=== PATIENT | male | born 1965 | race Caucasian/White ===

== ENCOUNTER 2019-05-06 19:22 | Inpatient (IN) | payer MEDICAID, SELFPAY ==
[2019-05-06 19:23] VITALS: BP 159/107; PULSE 88; RESP 15; TEMP 36.4; O2SAT 99; BMI 35.1
--- NOTE | 2019-05-06 19:43 | EKG12_ITS ---
Test Reason : FLANK PAIN Blood Pressure : / mmHG Vent. Rate : 085 BPM Atrial Rate : 085 BPM P-R Int : 118 ms QRS Dur : 078 ms QT Int : 410 ms P-R-T Axes : 017 -18 070 degrees QTc Int : 487 ms Normal sinus rhythm Prolonged QT Abnormal ECG Confirmed by SHAYAN TREADWELL, ALEXIA ([id number]), video tape editor ANTONIO SHEPARD ([id number]) on 05/07/2019 11:33:39 AM Referred By: Rodrigo Rouse Confirmed By:ALEXIA DOWNEY MD
--- NOTE | 2019-05-06 19:44 | ED.VIS.GEN ---
History of Present Illness Chief Complaint: Flank Pain Detail of Chief Complaint: Renal failure Informant: Patient Narrative: Patient states that he received a phone call from Dr. Lim, nephrology, stating he needed to come to the emergency room to be admitted to the hospital and start dialysis for renal failure. Patient states his doctors been following his renal function recently. He states prior to this last known lab work was drawn approximately 10 years ago. Patient was seen by Dr. Lim 2 days ago for a first-time visit and had repeat labs drawn. He received a phone call tonight to come to the emergency room. Patient has no complaints and states he feels well. He states he does urinate approximately a gallon a day. - Past Medical History (1) Diabetes Status: Chronic (2) Chronic renal failure Status: Chronic (3) Hypertension Status: Chronic (4) Vision problem Status: Chronic (5) Crohn's disease Status: Chronic Past Medical History - Allergies and Home Meds Allergies/Adverse Reactions: Allergies No Known Allergies Allergy (Verified 05/06/19 19:28) Primary Care Physician: Chuy Lim MD [Primary Care Provider] - Doctors: Dr. King Prior records reviewed: Yes Surgical History: - - Right partial colectomy Review of Systems General: Denies: Chills, Fever Eyes: Reports: Visual changes - bilaterally - Chronic vision changes. Cardiovascular: Denies: Chest pain Respiratory: Denies: Dyspnea, Cough Gastrointestinal: Denies: Abdominal pain, Nausea, Vomiting, Diarrhea Genitourinary: Denies: Dysuria Musculoskeletal: Denies: Extremity Pain Skin: Denies: Rash Neurological: Denies: Headache Endocrine: Denies: Polyuria Hematologic: Denies: Easy bruising Allergy: Denies: Uticaria Physical Exam Vital Signs/Narrative: Vital Signs Temp Pulse Resp BP Pulse Ox 05/06/19 19:23 97.5 F L 88 15 159/107 H 99 Inital Vital Signs reviewed: Yes General: Well nourished, Well developed Head: Normocephalic ENT: Moist mucous membranes Neck: Supple Cardiovascular: Regular rate, Regular rhythm Respiratory: No distress, CTA bilaterally Abdomen: Soft, Nontender, Normal bowel sounds Back: Nontender Extremities: Nontender Skin: Normal color, No rash Neurological: Alert, Oriented x3 Psychological: Normal affect Diagnostic/Tx/Re-eval Laboratory Results 1205/06/19 05/06/19 19:44 19:44 20:05 WBC 9.5 RBC 4.80 Hgb 13.6 Hct 41.1 MCV 85.6 MCH 28.3 MCHC 33.1 RDW Std Deviation 42.7 RDW Coeff of Glen 13.8 Plt Count 244 MPV 10.5 Immature Gran % (Auto) 0.300 Neut % (Auto) 64.5 Lymph % (Auto) 20.1 [place] % (Auto) 6.9 Eos % (Auto) 7.5 H Baso % (Auto) 0.7 Absolute Neuts (auto) 6.1 Absolute Lymphs (auto) 1.91 Nucleated RBC % 0 Sodium 137 Potassium 4.7 Chloride 110 H Carbon Dioxide 19.0 L Anion Gap 8 BUN 58 H Creatinine 6.08 H Estim Creat Clear Calc 14.45 Est GFR (MDRD) Af Amer 12 L Est GFR (MDRD) Non-Af 10 L BUN/Creatinine Ratio 9.5 L Glucose 182 H Calcium 8.4 L Urine Color Yellow Urine Clarity Clear Urine pH 6.0 Ur Specific [place] 1.015 Urine Protein 500 H Urine Glucose (UA) 250 H Urine Ketones Negative Urine Occult Blood 25 H Urine Nitrite Negative Urine Bilirubin Negative Urine Urobilinogen Normal Ur Leukocyte Esterase Negative Urine RBC 0 SEEN Urine WBC 0-5 SEEN Ur Squamous Epith Cells 0-5 SEEN Urine Bacteria 1+ Urine Mucus 0 SEEN - EKG Initial EKG Interpretation: Sinus Rhythm - Sinus at 85. QTC is 47. - Medical Decision Making Patient is given IV fluids. He is placed on utility pipe layer and observe. I will speak with hospitalist regarding admission to be seen by nephrology to plan dialysis. ED Disposition - Plan for ED Patient: Disposition: Acute Care Hospital [facility] Diagnosis: Renal failure Referrals: Chuy Lim MD [Primary Care Provider] -
--- NOTE | 2019-05-06 19:57 | ED.RN ---
NO OLD EKGS IN MUSE
[2019-05-06 20:03] LABS: Absolute Lymphocyte Count 1.91 X10^3/uL (0.83-4.51); Absolute Neutrophil Count 6.1 X10^3/uL (2.0-7.7); Basophil# 0.07 X10^3/uL; Basophil% 0.7 % (0-1); Eosinophil# 0.71 X10^3/uL; Eosinophils% 7.5 % (0-5); Hematocrit 41.1 % (40-54); Hemoglobin 13.6 g/dL (13.0-16.5); Lymphocyte # 1.91 X10^3/ul (4.0); Lymphocyte % 20.1 % (19-41); Mean Corp Hgb Conc 33.1 g/dL (32-36); Mean Corpuscular Hgb 28.3 pg (27.0-32.0); Mean Corpuscular Volume 85.6 fL (80-94); Mean Platelet Vol. 10.5 fl (6.2-12.0); Monocyte# 0.66 X10^3/uL; Monocyte% 6.9 % (0-10); NRBC Flagged by Analyzer 0 % (0-5); Neutrophil # 6.12 X10^3/uL (2.7-7.7); Neutrophil % 64.5 % (47-70); Platelet Count 244 K/mm3 (150-450); RBC Distribution Width CV 13.8 % (11.6-14.6); RBC Distribution Width SD 42.7 fl (35.1-43.9); White Blood Count 9.5 K/mm3 (4.4-11.0)
[2019-05-06] MEDS: 0.9% Normal Saline 1,000 ML 150 ML IV (20:09)
[2019-05-06 20:16] LABS: Mucous, Urine 0 SEEN /hpf (<or=2+); Red Blood Cells-Urine 0 SEEN /hpf (0-5)
[2019-05-06 20:24] LABS: Color, Urine Yellow (Yellow); Glucose, Dipstick 250 mg/dl (Normal); Ketone-Dipstick Negative (Negative); Leukocyte Esterase-Dipstick Negative /ul (Negative); Nitrite-Dipstick Negative (Negative); Occult Blood-Urine 25 /ul (Negative); Protein-Dipstick 500 mg/dl (Negative); Specific Gravity, Urine 1.015 (1.002-1.030); Urine Bilirubin Dipstick Negative (Negative); Urine Clarity Clear (Clear); Urine Urobilinogen Normal (Normal)
[2019-05-06 20:24] LABS: Anion Gap 8 (5-15); BUN 58 mg/dL (7-18); BUN/Creat Ratio 9.5 RATIO (10-20); Calcium,Total 8.4 mg/dL (8.5-10.1); Chloride 110 mmol/L (98-107); Creatinine, Serum 6.08 mg/dL (0.70-1.30); EST Glomerular Filtration Rate 10 mL/min (>60); Est Glom Filt Rate - Afr Amer 12 mL/min (>60); Estimated Creatinine Clearance 14.45 ml/min; Glucose 182 mg/dL (74-106); Potassium 4.7 mmol/L (3.5-5.1); Sodium Level 137 mmol/L (136-145)
[2019-05-06 20:32] LABS: Bacteria 1+ /hpf (None Seen); Squamous Epithelial Cells - UA 0-5 SEEN /hpf (0-5); White Blood Cells 0-5 SEEN /hpf (0-5)
[2019-05-06 21:14] VITALS: BP 185/107; PULSE 83; RESP 18; O2SAT 98
--- NOTE | 2019-05-06 21:37 | PCM.HP.STD ---
Problem List (1) ARIANE (acute kidney injury) Status: Acute History of Present Illness Date of Admission: 05/06/19 Chief Complaint: abnormal outpatient lab The patient is a 54 year old M with a significant history of hypertension; GERD; hypertension; diabetes mellitus; crohn's disease s/p right hemicolectomy; and vision problem who presented to the emergency department because of abnormal lab of elevated creatinine. The commercial litigation associate sent patient in for dialysis and further work-up. Past Medical History Past Medical History (Chronic Problems): Chronic Problems Diabetes (Chronic) Chronic renal failure (Chronic) Hypertension (Chronic) Vision problem (Chronic) Crohn's disease (Chronic) Allergies No Known Allergies Allergy (Verified 05/06/19 19:28) Home Medications: Ambulatory Orders Medication Instructions Recorded Esomeprazole Magnesium [Nexium 20 mg PO DAILY PRN 05/06/19 24Hr] Levothyroxine [Synthroid] 25 mcg PO DAILY 05/06/19 Losartan Potassium 50 mg PO DAILY 05/06/19 Metformin HCl 1,000 mg PO DAILY 05/06/19 Surgical History: tonsillectomy, - - Right partial colectomy Lives: Alone Smoking Status: Former smoker Alcohol: Rare - *Family History Maternal History Items: - - Patient does not know maternal medical history. Paternal History Items: Diabetes, Heart Disease, - - His father was blind in one eye. Review of Systems Constitutional: Denies: Chills, Fever, Weight Change HEENT: Denies: Head Aches, Sinus Congestion, Sinus Drainage Cardiovascular: Denies: Chest Pain, Palpitations Respiratory: Denies: Cough, Shortness of breath at rest, Sputum production Gastrointestinal: Denies: Abdominal Pain, Nausea, Vomiting Genitourinary: Denies: Dysuria Musculoskeletal: Reports: Back Pain - History of chronic back pain and thinks hospital bed is is exacerbating his back pain and hip pain.. Denies: Joint Pain, Joint Tenderness Skin: Denies: Rash, Wounds Neurological: Denies: Numbness, Tingling, Focal weakness Psychiatric: Denies: Anxiety, Depression, Homicidal Ideations, Suicidal Ideations Hematologic/ Lymphatic: Denies: Easy Bruising, Easy Bleeding VTE Information - Inpt Only VTE Present on Admission: No VTE Mechan Device Prophylaxis: SCD's VTE Pharm Prophylaxis ordered?: No Patient Problems: Active and Suspected Problems Renal failure (Acute) ARIANE (acute kidney injury) (Acute) - Physical Exam Vitals/I&O's: Vital Signs Temp Pulse Resp BP Pulse Ox 97.5 F L 83 18 185/107 H 98 05/06/19 19:23 05/06/19 21:14 05/06/19 21:14 05/06/19 21:14 05/06/19 21:14 Oxygen Delivery Method Room Air Weight: 114.305 kg Body Mass Index (BMI) 35.1 General: Alert, Oriented x3, Cooperative HEENT: Atraumatic, PERRLA, EOMI, Normocephalic Neck: Supple, No JVD, Negative Carotid Bruits Lungs: Clear to auscultation, Normal air movement Cardiovascular: Regular rate, No murmurs Abdomen: Bowel Sounds Present, Soft, Non Tender Extremities: No edema, Capillary Refill Less than 3 Seconds Skin: No rashes, No breakdown Musculoskeletal: No Tenderness to Palpation of Joints or Extremities Neurological: Cranial nerves II-XII grossly intact Psych/Mental Status: Normal Affect, Appropriate Laboratory Results 05/06/19 19:44: WBC 9.5, RBC 4.80, Hgb 13.6, Hct 41.1, MCV 85.6, MCH 28.3, MCHC 33.1, RDW Std Deviation 42.7, RDW Coeff of [place] 13.8, Plt Count 244, MPV 10.5, Immature Gran % (Auto) 0.300, Neut % (Auto) 64.5, Lymph % (Auto) 20.1, [place] % (Auto) 6.9, Eos % (Auto) 7.5 H, Baso % (Auto) 0.7, Absolute Neuts (auto) 6.1, Absolute Lymphs (auto) 1.91, Nucleated RBC % 0 05/06/19 19:44: Sodium 137, Potassium 4.7, Chloride 110 H, Carbon Dioxide 19.0 L, Anion Gap 8, BUN 58 H, Creatinine 6.08 H, Estim Creat Clear Calc 14.45, Est GFR (MDRD) Af Amer 12 L, Est GFR (MDRD) Non-Af 10 L, BUN/Creatinine Ratio 9.5 L, Glucose 182 H, Calcium 8.4 L 05/06/19 20:05: Urine Color Yellow, Urine Clarity Clear, Urine pH 6.0, Ur Specific [place] 1.015, Urine Protein 500 H, Urine Glucose (UA) 250 H, Urine Ketones Negative, Urine Occult Blood 25 H, Urine Nitrite Negative, Urine Bilirubin Negative, Urine Urobilinogen Normal, Ur Leukocyte Esterase Negative, Urine RBC 0 SEEN, Urine WBC 0-5 SEEN, Ur Squamous Epith Cells 0-5 SEEN, Urine Bacteria 1+, Urine Mucus 0 SEEN Current Medications Sodium Chloride () 1,000 mls @ 150 mls/hr IV .Q6H40M [facility] Last Admin: 05/06/19 20:09 Dose: 150 mls/hr Documented by: Assessment/Plan All Active Problems Renal failure (Acute) ARIANE (acute kidney injury) (Acute) The patient is a 54 year old M with a significant history of hypertension; GERD; hypertension; diabetes mellitus; crohn's disease s/p right hemicolectomy; and vision problem who presented to the emergency department because of abnormal lab of elevated creatinine consistent with ARIANE. ARIANE On presentation his creatinine was 6.08. Reportedly outpatient his creatinine was elevated. Discussed the case with Dr. Hughes, nephrology. Per conversation with nephrology will discontinue metformin and losartan and will start patient on a different blood pressure medication. Trend BMP. Avoid nephrotoxic's. Dr. Lim nephrology will follow patient thereafter. Diabetes mellitus with hyperglycemia On presentation his blood glucose was elevated. Hold home metformin. Put on calorie controlled diet with low potassium and low phosphate. Accu-Chek QA CHS with correction scale insulin ordered. Hypertension On presentation his blood pressure was not within goal. Hold losartan because of ARIANE. Will put on PRN hydralazine and start daily amlodipine. Trend blood pressures and adjust blood pressure medication Hypothyroidism Synthroid continued DVT Prophylaxis SCD Code Visit Inpatient E&M: 70127 Init Hosp L3
[2019-05-06 21:40] VITALS: BMI 33.7
[2019-05-06 22:02] VITALS: BMI 33.7
[2019-05-06 22:09] VITALS: BP 198/108; PULSE 81; RESP 16; TEMP 35.9; O2SAT 99
--- NOTE | 2019-05-06 22:35 | US_ITS ---
STUDY: RENAL ULTRASOUND - COMPLETE REASON FOR EXAM: Male, 54 years old. Acute renal injury. TECHNIQUE: Ultrasound evaluation of the kidneys was performed with real-time and static xiao-scale imaging. COMPARISON: None. FINDINGS: RIGHT KIDNEY: Normal location of the right kidney, which is normal in size. The right kidney measures 12.7 cm x 6.6 cm x 6.1 cm. There is a normal cortex of the right kidney. The renal cortex measures 1.5 cm. There is no right renal mass or cyst. There are no right renal calculi. There is no right hydronephrosis. DISTAL RIGHT URETER: There is non-visualization of the distal right ureter. There is no demonstrated right ureterovesical junction calculus. There is a visualized right ureteral jet. LEFT KIDNEY: Normal location of the left kidney, which is normal in size. The left kidney measures 11.5 cm x 5.3 cm x 5.7 cm. There is a normal cortex of the left kidney. The renal cortex measures 1.5 cm. There is no left renal mass or cyst. There are no left renal calculi. There is no left hydronephrosis. DISTAL LEFT URETER: There is non-visualization of the distal left ureter. There is no demonstrated left ureterovesical junction calculus. There is a visualized left ureteral jet. I.V.C.: The IVC is patent. BLADDER: The distended urinary bladder has a volume of 90 ml. Incidental note is made of gallstones. US/Kidney and Bladder IMPRESSION: Normal ultrasound of the kidneys and urinary bladder. Cholelithiasis. Electronically Signed: Kwabena Gould, at 13:23 EST , Service support ,
[2019-05-06 22:47] LABS: International Normalized Ratio 1.1; Prothrombin Time (Protime)PT. 13.8 SECONDS (11.7-14.9)
[2019-05-06 22:48] LABS: Partial Thromboplast Time 28.6 Seconds (24.1-36.2)
[2019-05-06 23:03] VITALS: BP 213/121; PULSE 84
[2019-05-06] MEDS: hydrALAZINE 20 MG/ML Vial 10 MG IV (23:03)
[2019-05-06] MEDS: amLODIPine 5 MG Tablet PO (23:05)
[2019-05-06 23:15] LABS: Bedside Glucose 147 mg/dL (70-110)
[2019-05-06 23:57] VITALS: BP 168/97; PULSE 91; RESP 18; TEMP 35.9; O2SAT 98
[2019-05-07 03:52] VITALS: BP 157/87; PULSE 84; RESP 16; TEMP 36.1; O2SAT 96
[2019-05-07 05:53] LABS: Anion Gap 6 (5-15); BUN 58 mg/dL (7-18); BUN/Creat Ratio 10.1 RATIO (10-20); Calcium,Total 7.7 mg/dL (8.5-10.1); Chloride 115 mmol/L (98-107); Creatinine, Serum 5.74 mg/dL (0.70-1.30); EST Glomerular Filtration Rate 11 mL/min (>60); Est Glom Filt Rate - Afr Amer 13 mL/min (>60); Glucose 77 mg/dL (74-106); Potassium 4.1 mmol/L (3.5-5.1); Sodium Level 141 mmol/L (136-145)
[2019-05-07] MEDS: Levothyroxine 25 MCG TABLET PO (06:43)
[2019-05-07] MEDS: Acetaminophen 325 MG Tablet 650 MG PO (06:54)
[2019-05-07 06:56] LABS: Bedside Glucose 73 mg/dL (70-110)
[2019-05-07 07:26] VITALS: O2SAT 95
--- NOTE | 2019-05-07 08:09 | PCM.PN.HOSP ---
Patient Problems: Active and Suspected Problems Renal failure (Acute) ARIANE (acute kidney injury) (Acute) Vitals/I&O's: Vital Signs Temp Pulse Resp BP Pulse Ox 97 F L 84 16 157/87 H 95 05/07/19 03:52 05/07/19 03:52 05/07/19 03:52 05/07/19 03:52 05/07/19 07:26 Oxygen Delivery Method Room Air Weight: 111.244 kg Body Mass Index (BMI) 33.7 Intake and Output for Last 24 Hours 05/05/19 05/06/19 05/07/19 23:59 23:59 23:59 Intake Total 1900 / 1900 Output Total 350 / 350 Balance 1550 / 1550 Laboratory Results 05/06/19 19:44: WBC 9.5, RBC 4.80, Hgb 13.6, Hct 41.1, MCV 85.6, MCH 28.3, MCHC 33.1, RDW Std Deviation 42.7, RDW Coeff of [place] 13.8, Plt Count 244, MPV 10.5, Immature Gran % (Auto) 0.300, Neut % (Auto) 64.5, Lymph % (Auto) 20.1, [place] % (Auto) 6.9, Eos % (Auto) 7.5 H, Baso % (Auto) 0.7, Absolute Neuts (auto) 6.1, Absolute Lymphs (auto) 1.91, Nucleated RBC % 0 05/06/19 19:44: Sodium 137, Potassium 4.7, Chloride 110 H, Carbon Dioxide 19.0 L, Anion Gap 8, BUN 58 H, Creatinine 6.08 H, Estim Creat Clear Calc 14.45, Est GFR (MDRD) Af Amer 12 L, Est GFR (MDRD) Non-Af 10 L, BUN/Creatinine Ratio 9.5 L, Glucose 182 H, Calcium 8.4 L 05/06/19 19:44: PT 13.8, INR 1.1, APTT 28.6 05/06/19 20:05: Urine Color Yellow, Urine Clarity Clear, Urine pH 6.0, Ur Specific [place] 1.015, Urine Protein 500 H, Urine Glucose (UA) 250 H, Urine Ketones Negative, Urine Occult Blood 25 H, Urine Nitrite Negative, Urine Bilirubin Negative, Urine Urobilinogen Normal, Ur Leukocyte Esterase Negative, Urine RBC 0 SEEN, Urine WBC 0-5 SEEN, Ur Squamous Epith Cells 0-5 SEEN, Urine Bacteria 1+, Urine Mucus 0 SEEN 05/06/19 23:01: POC Glucose 147 H 05/07/19 05:08: c-ANCA Antibody Pending, p-ANCA Antibody Pending 05/07/19 05:08: AMALIA Screen Pending, NICHOLAS-1 Antibody Pending, SS-A/Ro IgG Antibody Pending, SS-B/La IgG Antibody Pending, Sm (Hall) Antibody Pending, BRIDGE WORKER APPRENTICE Antibody Pending, Scl-70 Scleroderma Ab Pending, Double Strand DNA Ab Pending, Centromere B Antibody Pending 05/07/19 05:08: Glomerular Base Memb Ab Pending 05/07/19 05:08: Ur Total Protein 24 Hr Pending, Urine Total Protein Pending, Urine Albumin Pending, U Sxbbc-8-Anygdpof Pending, U Pykye-0-Luptrdth Pending, U Beta Globulin Pending, U Gamma Globulin Pending, Complement C3 Pending, Complement C4 Pending, Hepatitis A IgM Ab Pending, Hepatitis A Ab Total Pending, Hep Bs Antigen Pending, Hep B Core Total Ab Pending, Hep B Core IgM Ab Pending 05/07/19 05:08: HIV 1&2 Antibody Pending 05/07/19 05:08: RPR Pending 05/07/19 05:08: IgG Pending, IgA Pending, IgM Pending, Serum Cryoglobulins Pending 05/07/19 05:08: Sodium 141, Potassium 4.1, Chloride 115 H, Carbon Dioxide 20.0 L, Anion Gap 6, BUN 58 H, Creatinine 5.74 H, Estim Creat Clear Calc 15.30, Est GFR (MDRD) Af Amer 13 L, Est GFR (MDRD) Non-Af 11 L, BUN/Creatinine Ratio 10.1, Glucose 77, Calcium 7.7 L 05/07/19 06:41: POC Glucose 73 Current Medications Acetaminophen (Tylenol) 650 mg PO Q6H PRN PRN PRN Reason: Pain Score 1-10/Temp > 100.7 F Last Admin: 05/07/19 06:54 Dose: 650 mg Documented by: Amlodipine Besylate (Norvasc) 5 mg PO DAILY [facility] Last Admin: 05/06/19 23:05 Dose: 5 mg Documented by: Glucagon () 1 mg IM .X1 PRN PRN Reason: Hypoglycemia Hydralazine HCl (Apresoline Iv) 10 mg IV Q4H PRN PRN PRN Reason: SBP > 160 Last Admin: 05/06/19 23:03 Dose: 10 mg Documented by: Sodium Chloride () 250 mls @ 15 mls/hr IV .[id number] PRN PRN Reason: Saline Flush Dextrose (Dextrose 10%-Water) 250 mls @ 999 mls/hr IV X1 PRN; Protocol PRN Reason: HYPOGLYCEMIA Insulin Human Lispro (Humalog Kwikpen (Bkc)) 0 unit SC ACHS [facility]DY; Protocol Last Admin: 05/07/19 06:43 Dose: Not Given Documented by: Levothyroxine Sodium (Synthroid) 25 mcg PO DAILY@0600 [facility] Last Admin: 05/07/19 06:43 Dose: 25 mcg Documented by: Ondansetron HCl (Zofran) 4 mg IV Q8H PRN PRN PRN Reason: NAUSEA/VOMITING Pantoprazole Sodium (Protonix) 20 mg PO DAILY [facility] Sodium Chloride () 10 - 40 ml IV UD PRN PRN Reason: SALINE FLUSH STROKE Vital Signs/Narrative: Vital Signs Pulse Ox 05/07/19 07:26 95 Medical Necessity - Tobacco Use Smoking Status: Former smoker Assessment/Plan All Active Problems Renal failure (Acute) ARIANE (acute kidney injury) (Acute)
[2019-05-07 08:58] VITALS: BP 151/77; PULSE 85; RESP 18; TEMP 36.7; O2SAT 100
[2019-05-07] MEDS: 0.9% Saline Lock 10 ML Syringe IV ×2 (09:03→21:44)
[2019-05-07] MEDS: 0.9% Normal Saline 1,000 ML 150 ML IV (09:22)
[2019-05-07] MEDS: amLODIPine 10 MG Tablet PO (09:23)
--- NOTE | 2019-05-07 09:24 | PCM.PN.HOSP ---
Patient Problems: Active and Suspected Problems Renal failure (Acute) ARIANE (acute kidney injury) (Acute) Reason for Visit: Renal failure Subjective: Patient is a 54-year-old gentleman with multiple comorbidities including hypertension diabetes mellitus type 2 admitted with abnormal labs. Patient was found to have creatinine of 6.08. Objective: GENERAL: cooperative HEENT: Atraumatic; EYES; Anicteric, Normal Conjunctiva NECK; supple, normal thyroid, RESPIRATORY: Diminished to auscultation CARDIOVASCULAR: Regular S1 S2, GI: soft, normoactive bowel sounds, : No Renal angle tenderness; EXTREMITIES: No edema, no clubbing, MUSCULOSKELETAL: no muscle waisting NEURO: Awake; no lateralizing signs. SKIN: No Rash PSYCH; Flat affect Vitals/I&O's: Vital Signs Temp Pulse Resp BP Pulse Ox 98.1 F 85 18 151/77 H 100 05/07/19 08:58 05/07/19 08:58 05/07/19 08:58 05/07/19 08:58 05/07/19 08:58 Oxygen Delivery Method Room Air Weight: 111.244 kg Body Mass Index (BMI) 33.7 Intake and Output for Last 24 Hours 05/05/19 05/06/19 05/07/19 23:59 23:59 23:59 Intake Total 1900 / 1900 Output Total 350 / 350 Balance 1550 / 1550 Laboratory Results 05/06/19 19:44: WBC 9.5, RBC 4.80, Hgb 13.6, Hct 41.1, MCV 85.6, MCH 28.3, MCHC 33.1, RDW Std Deviation 42.7, RDW Coeff of [place] 13.8, Plt Count 244, MPV 10.5, Immature Gran % (Auto) 0.300, Neut % (Auto) 64.5, Lymph % (Auto) 20.1, [place] % (Auto) 6.9, Eos % (Auto) 7.5 H, Baso % (Auto) 0.7, Absolute Neuts (auto) 6.1, Absolute Lymphs (auto) 1.91, Nucleated RBC % 0 05/06/19 19:44: Sodium 137, Potassium 4.7, Chloride 110 H, Carbon Dioxide 19.0 L, Anion Gap 8, BUN 58 H, Creatinine 6.08 H, Estim Creat Clear Calc 14.45, Est GFR (MDRD) Af Amer 12 L, Est GFR (MDRD) Non-Af 10 L, BUN/Creatinine Ratio 9.5 L, Glucose 182 H, Calcium 8.4 L 05/06/19 19:44: PT 13.8, INR 1.1, APTT 28.6 05/06/19 20:05: Urine Color Yellow, Urine Clarity Clear, Urine pH 6.0, Ur Specific [place] 1.015, Urine Protein 500 H, Urine Glucose (UA) 250 H, Urine Ketones Negative, Urine Occult Blood 25 H, Urine Nitrite Negative, Urine Bilirubin Negative, Urine Urobilinogen Normal, Ur Leukocyte Esterase Negative, Urine RBC 0 SEEN, Urine WBC 0-5 SEEN, Ur Squamous Epith Cells 0-5 SEEN, Urine Bacteria 1+, Urine Mucus 0 SEEN 05/06/19 23:01: POC Glucose 147 H 05/07/19 05:08: c-ANCA Antibody Pending, p-ANCA Antibody Pending 05/07/19 05:08: AMALIA Screen Pending, NICHOLAS-1 Antibody Pending, SS-A/Ro IgG Antibody Pending, SS-B/La IgG Antibody Pending, Sm (Hall) Antibody Pending, FLARING MACHINE OPERATOR Antibody Pending, Scl-70 Scleroderma Ab Pending, Double Strand DNA Ab Pending, Centromere B Antibody Pending 05/07/19 05:08: Glomerular Base Memb Ab Pending 05/07/19 05:08: Ur Total Protein 24 Hr Pending, Urine Total Protein Pending, Urine Albumin Pending, U Vyloq-8-Qzerseql Pending, U Lxvso-6-Lzvowyfm Pending, U Beta Globulin Pending, U Gamma Globulin Pending, Complement C3 Pending, Complement C4 Pending, Hepatitis A IgM Ab Pending, Hepatitis A Ab Total Pending, Hep Bs Antigen Pending, Hep B Core Total Ab Pending, Hep B Core IgM Ab Pending 05/07/19 05:08: HIV 1&2 Antibody Pending 05/07/19 05:08: RPR Pending 05/07/19 05:08: IgG Pending, IgA Pending, IgM Pending, Serum Cryoglobulins Pending 05/07/19 05:08: Sodium 141, Potassium 4.1, Chloride 115 H, Carbon Dioxide 20.0 L, Anion Gap 6, BUN 58 H, Creatinine 5.74 H, Estim Creat Clear Calc 15.30, Est GFR (MDRD) Af Amer 13 L, Est GFR (MDRD) Non-Af 11 L, BUN/Creatinine Ratio 10.1, Glucose 77, Calcium 7.7 L 05/07/19 06:41: POC Glucose 73 Current Medications Acetaminophen (Tylenol) 650 mg PO Q6H PRN PRN PRN Reason: Pain Score 1-10/Temp > 100.7 F Last Admin: 05/07/19 06:54 Dose: 650 mg Documented by: Amlodipine Besylate (Norvasc) 10 mg PO DAILY [facility] Last Admin: 05/07/19 09:23 Dose: 10 mg Documented by: Glucagon () 1 mg IM .X1 PRN PRN Reason: Hypoglycemia Hydralazine HCl (Apresoline Iv) 10 mg IV Q4H PRN PRN PRN Reason: SBP > 160 Last Admin: 05/06/19 23:03 Dose: 10 mg Documented by: Dextrose (Dextrose 10%-Water) 250 mls @ 999 mls/hr IV X1 PRN; Protocol PRN Reason: HYPOGLYCEMIA Sodium Chloride () 1,000 mls @ 150 mls/hr IV .Q6H40M [facility] Last Admin: 05/07/19 09:22 Dose: 150 mls/hr Documented by: Insulin Human Lispro (Humalog Kwikpen (Bkc)) 0 unit SC ACHS [facility]; Protocol Last Admin: 05/07/19 06:43 Dose: Not Given Documented by: Levothyroxine Sodium (Synthroid) 25 mcg PO DAILY@0600 [facility] Last Admin: 05/07/19 06:43 Dose: 25 mcg Documented by: Ondansetron HCl (Zofran) 4 mg IV Q8H PRN PRN PRN Reason: NAUSEA/VOMITING Pantoprazole Sodium (Protonix) 20 mg PO DAILY [facility] Last Admin: 05/07/19 09:24 Dose: Not Given Documented by: Sodium Chloride () 10 - 40 ml IV UD PRN PRN Reason: SALINE FLUSH Last Admin: 05/07/19 09:03 Dose: 10 ml Documented by: STROKE Vital Signs/Narrative: Vital Signs Temp Pulse Resp BP Pulse Ox 05/07/19 08:58 98.1 F 85 18 151/77 H 100 05/07/19 07:26 95 Medical Necessity - Tobacco Use Smoking Status: Former smoker Assessment/Plan All Active Problems Renal failure (Acute) ARIANE (acute kidney injury) (Acute) Patient is a 54-year-old gentleman with multiple comorbidities including hypertension diabetes mellitus type 2 admitted with abnormal labs. Patient was found to have creatinine of 6.08. 1. Renal failure ?Etiology not clear at this point. Patient was on both losartan and metformin the suspected offending medication held on admission patient started on IV fluids with subsequent monitoring of electrolytes. As part of patient management ordered renal ultrasound and consult placed to nephrology 2. Diabetes mellitus type 2 ?With complications including hypoglycemia patient metformin held due to above reasons. Placed on long-acting insulin as well as short acting insulin based on sliding scale. 3. Hypertension ~ blood pressure not optimal. With losartan being held in view of patient impaired kidney function patient was started on amlodipine scheduled in addition to PRN hydralazine 4. Hypothyroidism ~patient is on levothyroxine home dose continued 5. Crohn's disease ?Status post right hemicolectomy currently stable 6. Obesity with BMI of 33 ?Weight loss advised 7. DVT prophylaxis ?SC heparin Active Medications Acetaminophen (Tylenol) 650 mg PO Q6H PRN PRN PRN Reason: Pain Score 1-10/Temp > 100.7 F Last Admin: 05/07/19 06:54 Dose: 650 mg Documented by: Amlodipine Besylate (Norvasc) 10 mg PO DAILY [facility] Last Admin: 05/07/19 09:23 Dose: 10 mg Documented by: Glucagon () 1 mg IM .X1 PRN PRN Reason: Hypoglycemia Hydralazine HCl (Apresoline Iv) 10 mg IV Q4H PRN PRN PRN Reason: SBP > 160 Last Admin: 05/06/19 23:03 Dose: 10 mg Documented by: Dextrose (Dextrose 10%-Water) 250 mls @ 999 mls/hr IV X1 PRN; Protocol PRN Reason: HYPOGLYCEMIA Sodium Chloride () 1,000 mls @ 150 mls/hr IV .Q6H40M [facility] Last Admin: 05/07/19 09:22 Dose: 150 mls/hr Documented by: Insulin Human Lispro (Humalog Kwikpen (Bkc)) 0 unit SC ACHS [facility]; Protocol Last Admin: 05/07/19 06:43 Dose: Not Given Documented by: Levothyroxine Sodium (Synthroid) 25 mcg PO DAILY@0600 [facility] Last Admin: 05/07/19 06:43 Dose: 25 mcg Documented by: Ondansetron HCl (Zofran) 4 mg IV Q8H PRN PRN PRN Reason: NAUSEA/VOMITING Pantoprazole Sodium (Protonix) 20 mg PO DAILY [facility] Last Admin: 05/07/19 09:24 Dose: Not Given Documented by: Sodium Chloride () 10 - 40 ml IV UD PRN PRN Reason: SALINE FLUSH Last Admin: 05/07/19 09:03 Dose: 10 ml Documented by: Code Visit Inpatient E&M: 20727 Subs Hosp L2
[2019-05-07 10:18] LABS: HIV - WCH Non-Reactive (Nonreactive)
--- NOTE | 2019-05-07 10:59 | NURSING ---
PT TO US
[2019-05-07 12:01] LABS: Bedside Glucose 119 mg/dL (70-110)
--- NOTE | 2019-05-07 12:25 | CON.PCM_ITS ---
Reason for Consult Date of Consultation: 05/07/19 Reason for Consultation: ariane History of Present Illness: The patient is a 54 year old M with past medical history of diabetes mellitus diabetic retinopathy and hypertension and Crohn's disease s/p hemicolectomy who presented with a chief complaint of abnormal labs. The patient was diagnosed with diabetes at least 18 years ago. He was referred to our clinic a few days ago for creatinine in the 6 range. He denies ever seeing a premium card cancellation clerk before or any awareness of kidney disease prior to that. He was recently started on losartan about 10 days ago. He denies any recent nausea vomiting diarrhea abdominal pain dysuria hematuria LUTS. He denies ever seeing a premium card cancellation clerk or history of BPH or nephrolithiasis in the past. He denies taking NSAIDs at home but he takes aspirin the last time he took an aspirin is on or Tuesday he is not sure but it might have been but not after that. There is no recent exposure to IV contrast. He denies taking herbal traditional medications. He denies lower extremity edema. He states he had moderate itching mostly on the legs in the past 2 months. He denies nausea vomiting change in taste change in personality sleepiness during the day decreased appetite activities he states he has a very good appetite. No history of skin rashes no dry eyes no dry mouth no hemoptysis no hematochezia no melena no dysuria no hematuria. He undergoes injections for his diabetic retinopathy bilaterally. He has no other complaints today. He denies chest pain shortness of breath headache fever chills. Past Medical History Past Medical History (Chronic Problems): Chronic Problems Diabetes (Chronic) Chronic renal failure (Chronic) Hypertension (Chronic) Vision problem (Chronic) Crohn's disease (Chronic) Allergies No Known Allergies Allergy (Verified 05/06/19 19:28) Home Medications: Ambulatory Orders Medication Instructions Recorded Esomeprazole Magnesium [Nexium 20 mg PO DAILY PRN 05/06/19 24Hr] Levothyroxine [Synthroid] 25 mcg PO DAILY 05/06/19 Losartan Potassium 50 mg PO DAILY 05/06/19 Metformin HCl 1,000 mg PO DAILY 05/06/19 Surgical History: tonsillectomy, - - Right partial colectomy Lives: Alone Smoking Status: Former smoker Alcohol: Rare - *Family History Maternal History Items: - - Patient does not know maternal medical history. Paternal History Items: Diabetes, Heart Disease, - - His father was blind in one eye. Review of Systems Eyes: Reports: - Patient Problems: Active and Suspected Problems Renal failure (Acute) ARIANE (acute kidney injury) (Acute) - Physical Exam Vitals/I&O's: Vital Signs Temp Pulse Resp BP Pulse Ox 98.1 F 85 18 151/77 H 100 05/07/19 08:58 05/07/19 08:58 05/07/19 08:58 05/07/19 08:58 05/07/19 08:58 Oxygen Delivery Method Room Air Weight: 111.244 kg Body Mass Index (BMI) 33.7 Intake and Output for Last 24 Hours 05/05/19 05/06/19 05/07/19 23:59 23:59 23:59 Intake Total 1900 / 1900 Output Total 350 / 350 Balance 1550 / 1550 General: Alert, Oriented x3, Cooperative HEENT: Atraumatic, PERRLA, EOMI, Normocephalic Neck: Supple, No JVD, Negative Carotid Bruits Lungs: Clear to auscultation, Normal air movement Cardiovascular: Regular rate, No murmurs Abdomen: Bowel Sounds Present, Soft, Non Tender Extremities: No edema, Capillary Refill Less than 3 Seconds Skin: No rashes, No breakdown Musculoskeletal: No Tenderness to Palpation of Joints or Extremities Neurological: Cranial nerves II-XII grossly intact Psych/Mental Status: Normal Affect, Appropriate Laboratory Results 05/06/19 19:44: WBC 9.5, RBC 4.80, Hgb 13.6, Hct 41.1, MCV 85.6, MCH 28.3, MCHC 33.1, RDW Std Deviation 42.7, RDW Coeff of Glen 13.8, Plt Count 244, MPV 10.5, Immature Gran % (Auto) 0.300, Neut % (Auto) 64.5, Lymph % (Auto) 20.1, [place] % (Auto) 6.9, Eos % (Auto) 7.5 H, Baso % (Auto) 0.7, Absolute Neuts (auto) 6.1, Absolute Lymphs (auto) 1.91, Nucleated RBC % 0 05/06/19 19:44: Sodium 137, Potassium 4.7, Chloride 110 H, Carbon Dioxide 19.0 L , Anion Gap 8, BUN 58 H, Creatinine 6.08 H, Estim Creat Clear Calc 14.45, Est GFR (MDRD) Af Amer 12 L, Est GFR (MDRD) Non-Af 10 L, BUN/Creatinine Ratio 9.5 L, Glucose 182 H, Calcium 8.4 L 05/06/19 19:44: PT 13.8, INR 1.1, APTT 28.6 05/06/19 20:05: Urine Color Yellow, Urine Clarity Clear, Urine pH 6.0, Ur Specific [place] 1.015, Urine Protein 500 H, Urine Glucose (UA) 250 H, Urine Ketones Negative, Urine Occult Blood 25 H, Urine Nitrite Negative, Urine Bilirubin Negative, Urine Urobilinogen Normal, Ur Leukocyte Esterase Negative, Urine RBC 0 SEEN, Urine WBC 0-5 SEEN, Ur Squamous Epith Cells 0-5 SEEN, Urine Bacteria 1+, Urine Mucus 0 SEEN 05/06/19 23:01: POC Glucose 147 H 05/07/19 05:08: c-ANCA Antibody Pending, p-ANCA Antibody Pending 05/07/19 05:08: AMALIA Screen Pending, NICHOLAS-1 Antibody Pending, SS-A/Ro IgG Antibody Pending, SS-B/La IgG Antibody Pending, Sm (Hall) Antibody Pending, FLOWER [employer] LABORER/DESIGNER Antibody Pending, Scl-70 Scleroderma Ab Pending, Double Strand DNA Ab Pending, Centromere B Antibody Pending 05/07/19 05:08: Glomerular Base Memb Ab Pending 05/07/19 05:08: Ur Total Protein 24 Hr Pending, Urine Total Protein Pending, Urine Albumin Pending, U Amxhd-8-Qlotyrkn Pending, U Eccbj-4-Gbgkpufh Pending, U Beta Globulin Pending, U Gamma Globulin Pending, Complement C3 Pending, Complement C4 Pending, Hepatitis A IgM Ab Pending, Hepatitis A Ab Total Pending, Hep Bs Antigen Pending, Hep B Core Total Ab Pending, Hep B Core IgM Ab Pending 05/07/19 05:08: HIV 1&2 Antibody Non-Reactive 05/07/19 05:08: RPR Pending 05/07/19 05:08: IgG Pending, IgA Pending, IgM Pending, Serum Cryoglobulins Pending 05/07/19 05:08: Sodium 141, Potassium 4.1, Chloride 115 H, Carbon Dioxide 20.0 L , Anion Gap 6, BUN 58 H, Creatinine 5.74 H, Estim Creat Clear Calc 15.30, Est GFR (MDRD) Af Amer 13 L, Est GFR (MDRD) Non-Af 11 L, BUN/Creatinine Ratio 10.1, Glucose 77, Calcium 7.7 L 05/07/19 06:41: POC Glucose 73 05/07/19 11:54: POC Glucose 119 H Current Medications Acetaminophen (Tylenol) 650 mg PO Q6H PRN PRN PRN Reason: Pain Score 1-10/Temp > 100.7 F Last Admin: 05/07/19 06:54 Dose: 650 mg Documented by: Amlodipine Besylate (Norvasc) 10 mg PO DAILY [facility] Last Admin: 05/07/19 09:23 Dose: 10 mg Documented by: Glucagon () 1 mg IM .X1 PRN PRN Reason: Hypoglycemia Heparin Sodium (Porcine) (Heparin Na) 5,000 unit SC Q12 [facility] Last Admin: 05/07/19 12:14 Dose: 5,000 unit Documented by: Hydralazine HCl (Apresoline Iv) 10 mg IV Q4H PRN PRN PRN Reason: SBP > 160 Last Admin: 05/06/19 23:03 Dose: 10 mg Documented by: Dextrose (Dextrose 10%-Water) 250 mls @ 999 mls/hr IV X1 PRN; Protocol PRN Reason: HYPOGLYCEMIA Sodium Chloride () 1,000 mls @ 150 mls/hr IV .Q6H40M [facility] Last Admin: 05/07/19 09:22 Dose: 150 mls/hr Documented by: Insulin Human Lispro (Humalog Kwikpen (Bkc)) 0 unit SC ACHS [facility]; Protocol Last Admin: 05/07/19 12:14 Dose: Not Given Documented by: Levothyroxine Sodium (Synthroid) 25 mcg PO DAILY@0600 [facility] Last Admin: 05/07/19 06:43 Dose: 25 mcg Documented by: Ondansetron HCl (Zofran) 4 mg IV Q8H PRN PRN PRN Reason: NAUSEA/VOMITING Pantoprazole Sodium (Protonix) 20 mg PO DAILY [facility] Last Admin: 05/07/19 09:24 Dose: Not Given Documented by: Sodium Chloride () 10 - 40 ml IV UD PRN PRN Reason: SALINE FLUSH Last Admin: 05/07/19 09:03 Dose: 10 ml Documented by: Assessment/Plan All Active Problems Renal failure (Acute) ARIANE (acute kidney injury) (Acute) Acute kidney injury versus progressive advanced CKD Metabolic acidosis Proteinuria Hypertension Diabetes mellitus Crohn's disease with history of hemicolectomy The patient took aspirin on will need to wait 7 days prior to the renal biopsy. I discussed at length with him about major risks and benefits of dialysis including but not limited to infection seizures strokes heart attacks. The patient would like to talk with his brother sister and mother before starting dialysis and placing a tunneled dialysis catheter. The work-up for RPGN was ordered and pending renal ultrasound was just done and pending he is doing a 24-hour urine collection as of now. Losartan and metformin were held on admission. The urine analysis sediment was bland not suggestive of nephritic syndrome. Add labetalol for blood pressure control. Add sodium bicarbonate low-dose until dialysis started. The above assessment and plan was discussed at length with the patient who voiced understanding and agrees to proceed with the plan as outlined above. She was given the opportunity to ask questions and stated that those were answered to satisfaction. Thank you very much With participate in the care of this patient. Please do not hesitate to call if you have any questions or concerns.
--- NOTE | 2019-05-07 12:25 | CASEMGMT ---
RN CM Assessment Presentation: ARIANE, etiology possible medication related. Intro role of CM and purpose of RN CM assessment. Intro role of CM to patient in room. Pt is awake, alert and able to participate in assessment. Demographics, PCP and Pharmacy verified. Pt plans to return home on dc. Dr. Hughes, nephrology spoke with pt re: possible need for outpt dialysis. Will see pt again tomorrow to review ultrasound results and further planning. PCP: Marge Hernandes, MEDICAL MANAGEMENT SPECIALIST with [facility] in [place] Specialists: Dr. Lim, aviation tactical readiness officer, outpt. Preferred Pharmacy: [facility] [place] Insurance: no insurance Prescription Benefit: none LNOK: Sister Leatha Villa, brother Drew Villa Living Arrangements: pt states he lives alone. Is independent in ADL and no care needs identified at this time. Transportation: pt states he drives. DME: none. Denies cpap, oxygen use SW consult: pt is self pay. may need outpt dialysis and assist with dc meds. HHC/SNF: denies Patient DC goals: return home DC PLAN: anticipate return home. Possible need for dialysis outpt however pt wishes to speak with his brother and sister.CM let pt know director case management is available to assist with dc needs and concerns. Mer REYES RN ACM
--- NOTE | 2019-05-07 12:31 | CASEMGMT ---
Social Work Note Pt is listed as self-pay. SW reviewed notes and PFS saw pt. Per PFS pt plans on paying self-pay deposit and was also provided HCAP application. JOSÉ ANTONIO met with pt. SW introduced self and role at [facility]. Pt is alert and orientated x3. Pt states that he doesn't currently work and the last timed he worked was about a month ago. Pt confirms that he doesn't have insurance. SW asked pt about applying for Medicaid. Pt states he hasn't applied but is agreeable to taking medicaid application. SW informed pt that if he completes application then this worker can fax over application to [employer] or pt can drop off application once pt leaves [facility]. SW also provided pt with additional financial resources including medicaid application, Rosio Olguin, [employer], [employer] [facility], Good [employer] and prescription assistance. Pt states that he is in good spirits and hopes that everything is ok with his kidneys, hopes that it is just an infection. JOÉS ANTONIO offered support to pt. Pt receptive to support. Pt states that he recently moved to [facility] about three weeks ago. Pt states that he was born and raises in [facility] [place] but lived in [place] for about 10 years. Pt states that when he was living in [place] pt had medicaid through [place]. SW encouraged pt to apply for medicaid for [facility]. Pt states understanding, denied additional needs or concerns at this time. Erika Frederick CHEMIST [employer]GANIC, MAINTENANCE HELPER
[2019-05-07] MEDS: Sodium Bicarbonate 650 MG Tablet PO (13:02)
[2019-05-07 13:07] LABS: Phosphorus 3.8 mg/dL (2.5-4.9)
[2019-05-07 13:22] LABS: Vitamin D,25 Hydroxy 16.5 ng/mL (29.95-100.01)
[2019-05-07 13:23] LABS: PTHIN 245.1 pg/mL (18.4-80.1)
[2019-05-07 15:00] VITALS: BP 131/71; PULSE 85; RESP 18; TEMP 36.7; O2SAT 97
[2019-05-07 16:20] LABS: Bedside Glucose 172 mg/dL (70-110)
[2019-05-07] MEDS: Insulin Lispro 100 UNIT/ML INSULN.PEN SC ×2 (17:18→21:44)
[2019-05-07 21:13] VITALS: BP 164/92; PULSE 84; RESP 16; TEMP 36.7; O2SAT 100
[2019-05-07 21:44] VITALS: PULSE 85
[2019-05-07] MEDS: hydrALAZINE 20 MG/ML Vial 10 MG IV (21:44)
[2019-05-07 22:01] LABS: Bedside Glucose 221 mg/dL (70-110)
[2019-05-08] VITALS (7 sets, daily range): BP systolic 121–167; BP diastolic 68–101; PULSE 81–89; RESP 16–18; TEMP 36.6–37.2; O2SAT 98–100
[2019-05-08] MEDS: Levothyroxine 25 MCG TABLET PO (06:25)
[2019-05-08 06:30] LABS: Bedside Glucose 92 mg/dL (70-110)
--- NOTE | 2019-05-08 07:32 | PCM.PN.HOSP ---
Patient Problems: Active and Suspected Problems Renal failure (Acute) ARIANE (acute kidney injury) (Acute) Reason for Visit: Renal failure Subjective: Patient seen, virtually no change in kidney function. Diagnostic work-up regarding etiology of his renal failure still pending Objective: GENERAL: cooperative HEENT: Atraumatic; EYES; Anicteric, Normal Conjunctiva NECK; supple, normal thyroid, RESPIRATORY: Diminished to auscultation CARDIOVASCULAR: Regular S1 S2, GI: soft, normoactive bowel sounds, : No Renal angle tenderness; EXTREMITIES: No edema, no clubbing, MUSCULOSKELETAL: no muscle waisting NEURO: Awake; no lateralizing signs. SKIN: No Rash PSYCH; Flat affect Vitals/I&O's: Vital Signs Temp Pulse Resp BP Pulse Ox 98.0 F 81 16 151/83 H 99 05/08/19 03:20 05/08/19 03:20 05/08/19 03:20 05/08/19 03:20 05/08/19 03:20 Oxygen Delivery Method Room Air Weight: 111.244 kg Body Mass Index (BMI) 33.7 Intake and Output for Last 24 Hours 05/06/19 05/07/19 05/08/19 23:59 23:59 23:59 Intake Total 4100 / 4100 100 / 100 Output Total 950 / 1475 1050 / 1050 Balance 3150 / 2625 -950 / -950 Laboratory Results 05/07/19 05:08: HIV 1&2 Antibody Non-Reactive 05/07/19 05:08: Phosphorus 3.8 05/07/19 05:08: Vitamin D 25-Hydroxy 16.5 L 05/07/19 05:08: PTH Intact 245.1 H 05/07/19 11:54: POC Glucose 119 H 05/07/19 16:16: POC Glucose 172 H 05/07/19 21:43: POC Glucose 221 H 05/08/19 06:24: POC Glucose 92 05/08/19 07:18: WBC Pending, RBC Pending, Hgb Pending, Hct Pending, MCV Pending, MCH Pending, MCHC Pending, RDW Std Deviation Pending, RDW Coeff of Glen Pending, Plt Count Pending, Neut % (Auto) Pending, Absolute Neuts (auto) Pending 05/08/19 07:18: Sodium Pending, Potassium Pending, Chloride Pending, Carbon Dioxide Pending, Anion Gap Pending, BUN Pending, Creatinine Pending, Est GFR (MDRD) Af Amer Pending, Est GFR (MDRD) Non-Af Pending, BUN/Creatinine Ratio Pending, Glucose Pending, Calcium Pending, Magnesium Pending Current Medications Acetaminophen (Tylenol) 650 mg PO Q6H PRN PRN PRN Reason: Pain Score 1-10/Temp > 100.7 F Last Admin: 05/07/19 06:54 Dose: 650 mg Documented by: Amlodipine Besylate (Norvasc) 10 mg PO DAILY [facility] Last Admin: 05/07/19 09:23 Dose: 10 mg Documented by: Glucagon () 1 mg IM .X1 PRN PRN Reason: Hypoglycemia Heparin Sodium (Porcine) (Heparin Na) 5,000 unit SC Q12 [facility] Last Admin: 05/07/19 21:45 Dose: Not Given Documented by: Hydralazine HCl (Apresoline Iv) 10 mg IV Q4H PRN PRN PRN Reason: SBP > 160 Last Admin: 05/07/19 21:44 Dose: 10 mg Documented by: Dextrose (Dextrose 10%-Water) 250 mls @ 999 mls/hr IV X1 PRN; Protocol PRN Reason: HYPOGLYCEMIA Insulin Human Lispro (Humalog Kwikpen (Bkc)) 0 unit SC ACHS [facility]; Protocol Last Admin: 05/08/19 06:25 Dose: Not Given Documented by: Levothyroxine Sodium (Synthroid) 25 mcg PO DAILY@0600 [facility] Last Admin: 05/08/19 06:25 Dose: 25 mcg Documented by: Ondansetron HCl (Zofran) 4 mg IV Q8H PRN PRN PRN Reason: NAUSEA/VOMITING Pantoprazole Sodium (Protonix) 20 mg PO DAILY [facility] Last Admin: 05/07/19 09:24 Dose: Not Given Documented by: Sodium Chloride () 10 - 40 ml IV UD PRN PRN Reason: SALINE FLUSH Last Admin: 05/07/19 21:44 Dose: 10 ml Documented by: Medical Necessity - Tobacco Use Smoking Status: Former smoker Assessment/Plan All Active Problems Renal failure (Acute) ARIANE (acute kidney injury) (Acute) Patient is a 54-year-old gentleman with multiple comorbidities including hypertension diabetes mellitus type 2 admitted with abnormal labs. Patient was found to have creatinine of 6.08. 1. Renal failure ?Etiology not clear at this point. Patient was on both losartan and metformin the suspected offending medication held on admission patient started on IV fluids with subsequent monitoring of electrolytes. As part of patient management ordered renal ultrasound and consult placed to nephrology ?05/08/2019;Patient seen, virtually no change in kidney function. Diagnostic work-up regarding etiology of his renal failure still pending 2. Diabetes mellitus type 2 ?With complications including hypoglycemia patient metformin held due to above reasons. Placed on long-acting insulin as well as short acting insulin based on sliding scale. 3. Hypertension ~ blood pressure not optimal. With losartan being held in view of patient impaired kidney function patient was started on amlodipine scheduled in addition to PRN hydralazine 4. Hypothyroidism ~patient is on levothyroxine home dose continued 5. Crohn's disease ?Status post right hemicolectomy currently stable 6. Obesity with BMI of 33 ?Weight loss advised 7. DVT prophylaxis ?SC heparin Code Visit Inpatient E&M: 41534 Subs Hosp L2
[2019-05-08 07:37] LABS: Absolute Lymphocyte Count 1.26 X10^3/uL (0.83-4.51); Absolute Neutrophil Count 5.3 X10^3/uL (2.0-7.7); Basophil# 0.05 X10^3/uL; Basophil% 0.6 % (0-1); Eosinophil# 0.51 X10^3/uL; Eosinophils% 6.6 % (0-5); Hematocrit 28.8 % (40-54); Hemoglobin 9.6 g/dL (13.0-16.5); Lymphocyte # 1.26 X10^3/ul (4.0); Lymphocyte % 16.3 % (19-41); Mean Corp Hgb Conc 33.3 g/dL (32-36); Mean Corpuscular Hgb 28.7 pg (27.0-32.0); Mean Corpuscular Volume 86.2 fL (80-94); Mean Platelet Vol. 10.3 fl (6.2-12.0); Monocyte# 0.57 X10^3/uL; Monocyte% 7.4 % (0-10); NRBC Flagged by Analyzer 0 % (0-5); Neutrophil # 5.33 X10^3/uL (2.7-7.7); Neutrophil % 68.7 % (47-70); Platelet Count 217 K/mm3 (150-450); RBC Distribution Width CV 13.8 % (11.6-14.6); RBC Distribution Width SD 42.9 fl (35.1-43.9); Red Blood Count 3.34 M/mm3 (4.6-6.2); White Blood Count 7.8 K/mm3 (4.4-11.0)
[2019-05-08 07:59] LABS: Anion Gap 7 (5-15); BUN 54 mg/dL (7-18); BUN/Creat Ratio 9.2 RATIO (10-20); Calcium,Total 7.7 mg/dL (8.5-10.1); Chloride 112 mmol/L (98-107); Creatinine, Serum 5.85 mg/dL (0.70-1.30); EST Glomerular Filtration Rate 11 mL/min (>60); Est Glom Filt Rate - Afr Amer 13 mL/min (>60); Estimated Creatinine Clearance 15.02 ml/min; Glucose 92 mg/dL (74-106); Magnesium 2.1 mg/dL (1.6-2.6); Potassium 4.6 mmol/L (3.5-5.1); Sodium Level 138 mmol/L (136-145)
[2019-05-08] MEDS: amLODIPine 10 MG Tablet PO (09:51)
[2019-05-08 11:35] LABS: Bedside Glucose 170 mg/dL (70-110)
--- NOTE | 2019-05-08 13:12 | PN.RENAL_ITS ---
Patient Problems: Active and Suspected Problems Renal failure (Acute) ARIANE (acute kidney injury) (Acute) Subjective: Chest pain no shortness of breath no nausea vomiting still has itching. - Physical Exam Vitals/I&O's: Vital Signs Temp Pulse Resp BP Pulse Ox 98.3 F 84 18 157/88 H 99 05/08/19 09:38 05/08/19 09:38 05/08/19 09:38 05/08/19 09:38 05/08/19 09:38 Oxygen Delivery Method Room Air Weight: 111.244 kg Body Mass Index (BMI) 33.7 Intake and Output for Last 24 Hours 05/06/19 05/07/19 05/08/19 23:59 23:59 23:59 Intake Total 4100 / 4100 100 / 100 Output Total 950 / 1475 1050 / 1050 Balance 3150 / 2625 -950 / -950 General: Alert, Oriented x3, Cooperative HEENT: Atraumatic, PERRLA, EOMI, Normocephalic Neck: Supple, No JVD, Negative Carotid Bruits Lungs: Clear to auscultation, Normal air movement Cardiovascular: Regular rate, No murmurs Abdomen: Bowel Sounds Present, Soft, Non Tender, Obese Extremities: No edema, Capillary Refill Less than 3 Seconds Skin: No rashes, No breakdown Musculoskeletal: No Tenderness to Palpation of Joints or Extremities Neurological: Cranial nerves II-XII grossly intact Psych/Mental Status: Normal Affect, Appropriate Laboratory Results 05/07/19 05:08: Vitamin D 25-Hydroxy 16.5 L 05/07/19 05:08: PTH Intact 245.1 H 05/07/19 16:16: POC Glucose 172 H 05/07/19 21:43: POC Glucose 221 H 05/08/19 06:24: POC Glucose 92 05/08/19 07:18: WBC 7.8, RBC 3.34 L, Hgb 9.6 L, Hct 28.8 L, MCV 86.2, MCH 28.7, MCHC 33.3, RDW Std Deviation 42.9, RDW Coeff of [place] 13.8, Plt Count 217, MPV 10.3, Immature Gran % (Auto) 0.400, Neut % (Auto) 68.7, Lymph % (Auto) 16.3 L, [place] % (Auto) 7.4, Eos % (Auto) 6.6 H, Baso % (Auto) 0.6, Absolute Neuts (auto) 5.3, Absolute Lymphs (auto) 1.26, Nucleated RBC % 0 05/08/19 07:18: Sodium 138, Potassium 4.6, Chloride 112 H, Carbon Dioxide 19.0 L , Anion Gap 7, BUN 54 H, Creatinine 5.85 H, Estim Creat Clear Calc 15.02, Est GFR (MDRD) Af Amer 13 L, Est GFR (MDRD) Non-Af 11 L, BUN/Creatinine Ratio 9.2 L, Glucose 92, Calcium 7.7 L, Magnesium 2.1 05/08/19 11:22: POC Glucose 170 H Current Medications Acetaminophen (Tylenol) 650 mg PO Q6H PRN PRN PRN Reason: Pain Score 1-10/Temp > 100.7 F Last Admin: 05/07/19 06:54 Dose: 650 mg Documented by: Amlodipine Besylate (Norvasc) 10 mg PO DAILY [facility] Last Admin: 05/08/19 09:51 Dose: 10 mg Documented by: Glucagon () 1 mg IM .X1 PRN PRN Reason: Hypoglycemia Heparin Sodium (Porcine) (Heparin Na) 5,000 unit SC Q12 [facility] Last Admin: 05/08/19 09:51 Dose: Not Given Documented by: Hydralazine HCl (Apresoline Iv) 10 mg IV Q4H PRN PRN PRN Reason: SBP > 160 Last Admin: 05/07/19 21:44 Dose: 10 mg Documented by: Dextrose (Dextrose 10%-Water) 250 mls @ 999 mls/hr IV X1 PRN; Protocol PRN Reason: HYPOGLYCEMIA Insulin Human Lispro (Humalog Kwikpen (Bkc)) 0 unit SC ACHS [facility]; Protocol Last Admin: 05/08/19 06:25 Dose: Not Given Documented by: Levothyroxine Sodium (Synthroid) 25 mcg PO DAILY@0600 [facility] Last Admin: 05/08/19 06:25 Dose: 25 mcg Documented by: Ondansetron HCl (Zofran) 4 mg IV Q8H PRN PRN PRN Reason: NAUSEA/VOMITING Pantoprazole Sodium (Protonix) 20 mg PO DAILY [facility] Last Admin: 05/08/19 09:51 Dose: Not Given Documented by: Sodium Chloride () 10 - 40 ml IV UD PRN PRN Reason: SALINE FLUSH Last Admin: 05/07/19 21:44 Dose: 10 ml Documented by: Medical Necessity - Tobacco Use Smoking Status: Former smoker Assessment/Plan All Active Problems Renal failure (Acute) ARIANE (acute kidney injury) (Acute) Acute kidney injury versus progressive advanced CKD Metabolic acidosis Proteinuria Hypertension Diabetes mellitus Crohn's disease with history of hemicolectomy The patient states now that he took last aspirin on 2 ago and no NSAIDs in the last 5 days so can proceed with renal biopsy. Major risks and benefits of renal biopsy including but not limited to bleeding infection pain kidney loss page kidney damage to other abdominal organs explained to the patient voiced understanding and agrees to proceed with a kidney biopsy. I discussed at length with him about major risks and benefits of dialysis including but not limited to infection seizures strokes heart attacks. The patient voiced understanding and agrees with placing a tunneled dialysis catheter and starting dialysis. The work-up for RPGN was ordered and pending renal ultrasound was just done and pending he is doing a 24-hour urine collection as of now. Add labetalol for blood pressure control. d/w patient RN and hospitalist.
--- NOTE | 2019-05-08 13:40 | PCM.CONS.GEN ---
Reason for Consult Date of Consultation: 05/08/19 History of Present Illness: The patient is a 54 year old M admitted to the hospital due to abnormal outpatient labs. Patient did have an elevated creatinine between 5 and 6. Patient has a past medical history of Crohn's disease which he had a right hemicolectomy for 15 years ago and was previously on Remicade, patient did stop the Remicade on his own about 10 years ago. Patient also had a history of rectal abscess. Patient was able to talk with his family and did decide to go through with the tunneled dialysis catheter and hemodialysis. Denies any abdominal pain/nausea/vomiting/fever/chills. Patient does have itching of his lower extremities unsure if that is due to kidney function or dry skin per patient Past Medical History Past Medical History (Chronic Problems): Chronic Problems Diabetes (Chronic) Chronic renal failure (Chronic) Hypertension (Chronic) Vision problem (Chronic) Crohn's disease (Chronic) Allergies No Known Allergies Allergy (Verified 05/06/19 19:28) Home Medications: Ambulatory Orders Medication Instructions Recorded Esomeprazole Magnesium [Nexium 20 mg PO DAILY PRN 05/06/19 24Hr] Levothyroxine [Synthroid] 25 mcg PO DAILY 05/06/19 Losartan Potassium 50 mg PO DAILY 05/06/19 Metformin HCl 1,000 mg PO DAILY 05/06/19 Surgical History: tonsillectomy, - - Right hemicolectomy due to Crohn's disease 15 years ago Psychiatric History: No pertinent psych hx Lives: Alone Smoking Status: Former smoker Alcohol: Rare - *Family History Maternal History Items: - - Patient does not know maternal medical history. Paternal History Items: Diabetes, Heart Disease, - - His father was blind in one eye. Review of Systems Constitutional: Denies: Anorexia, Fever Eyes: Denies: Blurred vision HEENT: Denies: Difficulty Swallowing Cardiovascular: Denies: Chest Pain Respiratory: Denies: Shortness of Breath Gastrointestinal: Denies: Abdominal Pain, Nausea, Vomiting Genitourinary: Denies: Dysuria Skin: Reports: Pruritis - Lower extremities bilaterally Neurological: Denies: Balance problems Psychiatric: Reports: Anxiety. Denies: Depression Hematologic/ Lymphatic: Denies: Easy Bruising, Easy Bleeding Patient Problems: Active and Suspected Problems Renal failure (Acute) ARIANE (acute kidney injury) (Acute) - Physical Exam Vitals/I&O's: Vital Signs Temp Pulse Resp BP Pulse Ox 98.3 F 84 18 157/88 H 99 05/08/19 09:38 05/08/19 09:38 05/08/19 09:38 05/08/19 09:38 05/08/19 09:38 Oxygen Delivery Method Room Air Weight: 245 lb 4 oz Body Mass Index (BMI) 33.7 Intake and Output for Last 24 Hours 05/06/19 05/07/19 05/08/19 23:59 23:59 23:59 Intake Total 4100 / 4100 450 / 450 Output Total 950 / 1475 1700 / 1700 Balance 3150 / 2625 -1250 / -1250 General: Alert, Oriented x3, Cooperative, No apparent distress HEENT: Atraumatic Lungs: Normal air movement Cardiovascular: Regular rate Abdomen: Soft, Non Tender, Non-Distended Extremities: No clubbing, No cyanosis, No edema Skin: - - Upper chest normal to inspection and palpation Neurological: Cranial nerves II-XII grossly intact Psych/Mental Status: Normal Affect Laboratory Results 05/07/19 16:16: POC Glucose 172 H 05/07/19 21:43: POC Glucose 221 H 05/08/19 06:24: POC Glucose 92 05/08/19 07:18: WBC 7.8, RBC 3.34 L, Hgb 9.6 L, Hct 28.8 L, MCV 86.2, MCH 28.7, MCHC 33.3, RDW Std Deviation 42.9, RDW Coeff of Glen 13.8, Plt Count 217, MPV 10.3, Immature Gran % (Auto) 0.400, Neut % (Auto) 68.7, Lymph % (Auto) 16.3 L, [place] % (Auto) 7.4, Eos % (Auto) 6.6 H, Baso % (Auto) 0.6, Absolute Neuts (auto) 5.3, Absolute Lymphs (auto) 1.26, Nucleated RBC % 0 05/08/19 07:18: Sodium 138, Potassium 4.6, Chloride 112 H, Carbon Dioxide 19.0 L, Anion Gap 7, BUN 54 H, Creatinine 5.85 H, Estim Creat Clear Calc 15.02, Est GFR (MDRD) Af Amer 13 L, Est GFR (MDRD) Non-Af 11 L, BUN/Creatinine Ratio 9.2 L, Glucose 92, Calcium 7.7 L, Magnesium 2.1 05/08/19 11:22: POC Glucose 170 H Current Medications Acetaminophen (Tylenol) 650 mg PO Q6H PRN PRN PRN Reason: Pain Score 1-10/Temp > 100.7 F Last Admin: 05/07/19 06:54 Dose: 650 mg Documented by: Amlodipine Besylate (Norvasc) 10 mg PO DAILY [facility] Last Admin: 05/08/19 09:51 Dose: 10 mg Documented by: Glucagon () 1 mg IM .X1 PRN PRN Reason: Hypoglycemia Heparin Sodium (Porcine) (Heparin Na) 5,000 unit SC Q12 [facility] Last Admin: 05/08/19 09:51 Dose: Not Given Documented by: Hydralazine HCl (Apresoline Iv) 10 mg IV Q4H PRN PRN PRN Reason: SBP > 160 Last Admin: 05/07/19 21:44 Dose: 10 mg Documented by: Dextrose (Dextrose 10%-Water) 250 mls @ 999 mls/hr IV X1 PRN; Protocol PRN Reason: HYPOGLYCEMIA Insulin Human Lispro (Humalog Kwikpen (Bkc)) 0 unit SC ACHS [facility]; Protocol Last Admin: 05/08/19 06:25 Dose: Not Given Documented by: Labetalol HCl (Trandate) 100 mg PO TID [facility] Levothyroxine Sodium (Synthroid) 25 mcg PO DAILY@0600 [facility] Last Admin: 05/08/19 06:25 Dose: 25 mcg Documented by: Ondansetron HCl (Zofran) 4 mg IV Q8H PRN PRN PRN Reason: NAUSEA/VOMITING Pantoprazole Sodium (Protonix) 20 mg PO DAILY [facility] Last Admin: 05/08/19 09:51 Dose: Not Given Documented by: Sodium Chloride () 10 - 40 ml IV UD PRN PRN Reason: SALINE FLUSH Last Admin: 05/07/19 21:44 Dose: 10 ml Documented by: Assessment/Plan All Active Problems Renal failure (Acute) ARIANE (acute kidney injury) (Acute) 54-year-old male with renal failure, status post right hemicolectomy about 15 years ago for Crohn's disease Patient did talk with nephrology was agreeable to start hemodialysis. Patient will also get a kidney biopsy tomorrow. Discussed with patient the procedure of a right tunneled dialysis catheter placement including but not limited to risk of bleeding, infection which would require removal, malfunction of the catheter, etc. Patient no further questions this time. We will plan to place right tunneled dialysis catheter tomorrow about 245/3 p.m. Tanisha Balbuena M.D. Pager: [phone] [facility] [address] [place] [address], [facility], [address] [place] [address] Office: [phone] Code Visit Inpatient E&M: 23605 Init Hosp L2
[2019-05-08] MEDS: hydrALAZINE 20 MG/ML Vial 10 MG IV (13:53)
[2019-05-08] MEDS: 0.9% Saline Lock 10 ML Syringe IV (13:54)
[2019-05-08 15:55] LABS: ANTINUCLEAR ANTIBODIES DIRECT Negative (Negative)
[2019-05-08 16:07] LABS: Cytoplasmic Ab (C-ANCA) <1:20 titer (Neg:<1:20)
[2019-05-08 16:26] LABS: Perinuclear Ab (P-ANCA) <1:20 titer (Neg:<1:20)
[2019-05-08] MEDS: Labetalol 100 MG Tablet PO ×2 (16:45→21:43)
[2019-05-08] MEDS: Insulin Lispro 100 UNIT/ML INSULN.PEN SC ×2 (16:49→21:47)
[2019-05-08 16:56] LABS: Bedside Glucose 181 mg/dL (70-110)
[2019-05-08 23:10] LABS: Bedside Glucose 198 mg/dL (70-110)
[2019-05-09] VITALS (21 sets, daily range): BP systolic 112–178; BP diastolic 59–98; PULSE 79–89; RESP 14–18; TEMP 36.3–36.9; O2SAT 93–100; BMI 36.3
[2019-05-09 06:34] LABS: Absolute Lymphocyte Count 1.66 X10^3/uL (0.83-4.51); Absolute Neutrophil Count 5.5 X10^3/uL (2.0-7.7); Basophil# 0.04 X10^3/uL; Basophil% 0.5 % (0-1); Eosinophil# 0.65 X10^3/uL; Eosinophils% 7.6 % (0-5); Hematocrit 26.4 % (40-54); Hemoglobin 8.8 g/dL (13.0-16.5); Lymphocyte # 1.66 X10^3/ul (4.0); Lymphocyte % 19.5 % (19-41); Mean Corp Hgb Conc 33.3 g/dL (32-36); Mean Corpuscular Hgb 28.8 pg (27.0-32.0); Mean Corpuscular Volume 86.3 fL (80-94); Mean Platelet Vol. 10.6 fl (6.2-12.0); NRBC Flagged by Analyzer 0 % (0-5); Neutrophil # 5.54 X10^3/uL (2.7-7.7); Platelet Count 201 K/mm3 (150-450); RBC Distribution Width CV 13.6 % (11.6-14.6); RBC Distribution Width SD 42.9 fl (35.1-43.9); Red Blood Count 3.06 M/mm3 (4.6-6.2); White Blood Count 8.5 K/mm3 (4.4-11.0)
[2019-05-09 06:36] LABS: International Normalized Ratio 1.2; Prothrombin Time (Protime)PT. 14.6 SECONDS (11.7-14.9)
[2019-05-09 06:37] LABS: Partial Thromboplast Time 30.8 Seconds (24.1-36.2)
[2019-05-09] MEDS: Labetalol 100 MG Tablet PO ×2 (06:47→21:40)
[2019-05-09] MEDS: Levothyroxine 25 MCG TABLET PO (06:47)
[2019-05-09 06:57] LABS: Anion Gap 9 (5-15); BUN 57 mg/dL (7-18); BUN/Creat Ratio 9.3 RATIO (10-20); Calcium,Total 8.1 mg/dL (8.5-10.1); Chloride 111 mmol/L (98-107); Creatinine, Serum 6.14 mg/dL (0.70-1.30); EST Glomerular Filtration Rate 10 mL/min (>60); Est Glom Filt Rate - Afr Amer 12 mL/min (>60); Estimated Creatinine Clearance 14.31 ml/min; Glucose 119 mg/dL (74-106); Potassium 4.4 mmol/L (3.5-5.1); Sodium Level 138 mmol/L (136-145)
[2019-05-09 07:10] LABS: Bedside Glucose 117 mg/dL (70-110)
[2019-05-09 07:11] LABS: Phosphorus 5.4 mg/dL (2.5-4.9)
--- NOTE | 2019-05-09 07:36 | PCM.PN.HOSP ---
Patient Problems: Active and Suspected Problems Renal failure (Acute) ARIANE (acute kidney injury) (Acute) Reason for Visit: Follow-up renal failure Subjective: Patient is scheduled to undergo permacath placement with initiation of dialysis as well as kidney biopsy. Objective: GENERAL: cooperative HEENT: Atraumatic; EYES; Anicteric, Normal Conjunctiva NECK; supple, normal thyroid, RESPIRATORY: Diminished to auscultation CARDIOVASCULAR: Regular S1 S2, GI: soft, normoactive bowel sounds, : No Renal angle tenderness; EXTREMITIES: No edema, no clubbing, MUSCULOSKELETAL: no muscle waisting NEURO: Awake; no lateralizing signs. SKIN: No Rash PSYCH; Flat affect Vitals/I&O's: Vital Signs Temp Pulse Resp BP Pulse Ox 97.8 F 79 18 112/59 L 100 05/09/19 02:56 05/09/19 02:56 05/09/19 02:56 05/09/19 02:56 05/09/19 02:56 Oxygen Delivery Method Room Air Weight: 114.9 kg Body Mass Index (BMI) 33.7 Intake and Output for Last 24 Hours 05/07/19 05/08/19 05/09/19 23:59 23:59 23:59 Intake Total 4100 / 4100 700 / 1100 400 / 400 Output Total 950 / 1475 1700 / 1700 Balance 3150 / 2625 -1000 / -600 400 / 400 Laboratory Results 05/07/19 05:08: c-ANCA Antibody <1:20, Atypical p-ANCA <1:20, p-ANCA Antibody <1:20 05/07/19 05:08: AMALIA Screen Negative, NICHOLAS-1 Antibody Not Reportable, SS-A/Ro IgG Antibody Not Reportable, SS-B/La IgG Antibody Not Reportable, Sm (Hall) Antibody Not Reportable, SHIP MATE Antibody Not Reportable, Scl-70 Scleroderma Ab Not Reportable, Double Strand DNA Ab Not Reportable, Centromere B Antibody Not Reportable 05/07/19 05:08: Ur Total Protein 24 Hr Pending, Urine Total Protein Pending, Urine Albumin Pending, U Jwogi-0-Dohhofpj Pending, U Abzrx-4-Sfzuecur Pending, U Beta Globulin Pending, U Gamma Globulin Pending, U PEP M-El Cancelled, U PEP M-El 24 Hr Cancelled, Urine Immunofixation Cancelled, Urine JAILYN Interpret Cancelled, Ur Immunofix PEP Note Cancelled, Complement C3 Pending, Complement C4 Pending, Hepatitis A IgM Ab Pending, Hepatitis A Ab Total Pending, Hep Bs Antigen Pending, Hep B Core Total Ab Pending, Hep B Core IgM Ab Pending 05/08/19 07:18: WBC 7.8, RBC 3.34 L, Hgb 9.6 L, Hct 28.8 L, MCV 86.2, MCH 28.7, MCHC 33.3, RDW Std Deviation 42.9, RDW Coeff of [place] 13.8, Plt Count 217, MPV 10.3, Immature Gran % (Auto) 0.400, Neut % (Auto) 68.7, Lymph % (Auto) 16.3 L, [place] % (Auto) 7.4, Eos % (Auto) 6.6 H, Baso % (Auto) 0.6, Absolute Neuts (auto) 5.3, Absolute Lymphs (auto) 1.26, Nucleated RBC % 0 05/08/19 07:18: Sodium 138, Potassium 4.6, Chloride 112 H, Carbon Dioxide 19.0 L, Anion Gap 7, BUN 54 H, Creatinine 5.85 H, Estim Creat Clear Calc 15.02, Est GFR (MDRD) Af Amer 13 L, Est GFR (MDRD) Non-Af 11 L, BUN/Creatinine Ratio 9.2 L, Glucose 92, Calcium 7.7 L, Magnesium 2.1 05/08/19 11:22: POC Glucose 170 H 05/08/19 16:48: POC Glucose 181 H 05/08/19 21:47: POC Glucose 198 H 05/09/19 06:20: WBC 8.5, RBC 3.06 L, Hgb 8.8 L, Hct 26.4 L, MCV 86.3, MCH 28.8, MCHC 33.3, RDW Std Deviation 42.9, RDW Coeff of [place] 13.6, Plt Count 201, MPV 10.6, Immature Gran % (Auto) 0.400, Neut % (Auto) 65.0, Lymph % (Auto) 19.5, [place] % (Auto) 7.0, Eos % (Auto) 7.6 H, Baso % (Auto) 0.5, Absolute Neuts (auto) 5.5, Absolute Lymphs (auto) 1.66, Nucleated RBC % 0 05/09/19 06:20: Sodium 138, Potassium 4.4, Chloride 111 H, Carbon Dioxide 18.0 L, Anion Gap 9, BUN 57 H, Creatinine 6.14 H, Estim Creat Clear Calc 14.31, Est GFR (MDRD) Af Amer 12 L, Est GFR (MDRD) Non-Af 10 L, BUN/Creatinine Ratio 9.3 L, Glucose 119 H, Calcium 8.1 L 05/09/19 06:20: Phosphorus 5.4 H, TSH 64.60 H 05/09/19 06:20: PT 14.6, INR 1.2, APTT 30.8 05/09/19 06:20: Hep B Core Total Ab Pending 05/09/19 06:20: Hep Bs Antigen Pending, Hep Bs Antibody Pending 05/09/19 06:20: Hemoglobin A1c Pending 05/09/19 06:52: POC Glucose 117 H Current Medications Acetaminophen (Tylenol) 650 mg PO Q6H PRN PRN PRN Reason: Pain Score 1-10/Temp > 100.7 F Last Admin: 05/07/19 06:54 Dose: 650 mg Documented by: Amlodipine Besylate (Norvasc) 10 mg PO DAILY [facility] Last Admin: 05/08/19 09:51 Dose: 10 mg Documented by: Glucagon () 1 mg IM .X1 PRN PRN Reason: Hypoglycemia Hydralazine HCl (Apresoline Iv) 10 mg IV Q4H PRN PRN PRN Reason: SBP > 160 Last Admin: 05/08/19 13:53 Dose: 10 mg Documented by: Dextrose (Dextrose 10%-Water) 250 mls @ 999 mls/hr IV X1 PRN; Protocol PRN Reason: HYPOGLYCEMIA Insulin Human Lispro (Humalog Kwikpen (Bkc)) 0 unit SC [facility]; Protocol Last Admin: 05/09/19 06:54 Dose: Not Given Documented by: Labetalol HCl (Trandate) 100 mg PO TID [facility] Last Admin: 05/09/19 06:47 Dose: 100 mg Documented by: Levothyroxine Sodium (Synthroid) 25 mcg PO DAILY@0600 [facility] Last Admin: 05/09/19 06:47 Dose: 25 mcg Documented by: Ondansetron HCl (Zofran) 4 mg IV Q8H PRN PRN PRN Reason: NAUSEA/VOMITING Pantoprazole Sodium (Protonix) 20 mg PO DAILY [facility] Last Admin: 05/08/19 09:51 Dose: Not Given Documented by: Sodium Chloride () 10 - 40 ml IV UD PRN PRN Reason: SALINE FLUSH Last Admin: 05/08/19 13:54 Dose: 10 ml Documented by: Medical Necessity - Tobacco Use Smoking Status: Former smoker Assessment/Plan All Active Problems Renal failure (Acute) ARIANE (acute kidney injury) (Acute) Patient is a 54-year-old gentleman with multiple comorbidities including hypertension diabetes mellitus type 2 admitted with abnormal labs. Patient was found to have creatinine of 6.08. 1. Renal failure ?Etiology not clear at this point. Patient was on both losartan and metformin the suspected offending medication held on admission patient started on IV fluids with subsequent monitoring of electrolytes. As part of patient management ordered renal ultrasound and consult placed to nephrology ?05/08/2019;Patient seen, virtually no change in kidney function. Diagnostic work-up regarding etiology of his renal failure still pending ?05/09/2019;Patient is scheduled to undergo permacath placement with initiation of dialysis as well as kidney biopsy. Case was also discussed with Dr. Hughes with nephrology the day prior. 2. Diabetes mellitus type 2 ?With complications including hypoglycemia patient metformin held due to above reasons. Placed on long-acting insulin as well as short acting insulin based on sliding scale. 3. Hypertension ~ blood pressure not optimal. With losartan being held in view of patient impaired kidney function patient was started on amlodipine scheduled in addition to PRN hydralazine 4. Hypothyroidism ~patient is on levothyroxine home dose continued 5. Crohn's disease ?Status post right hemicolectomy currently stable 6. Obesity with BMI of 33 ?Weight loss advised 7. DVT prophylaxis ?SC heparin Code Visit Inpatient E&M: 08622 Subs Hosp L2
[2019-05-09 08:22] LABS: Hemoglobin A1c 8.2 % (4.2-6.3)
--- NOTE | 2019-05-09 08:58 | NURSING ---
REPORT GIVEN TO DODIE DONOHUE IN CT/PROCEDURE
[2019-05-09] MEDS: 0.9% Saline Lock 10 ML Syringe IV (09:04)
[2019-05-09] MEDS: Midazolam 2 MG/2 ML Syringe IV (09:08)
[2019-05-09] MEDS: fentaNYL 100 MCG/2 ML Ampul IV (09:09)
[2019-05-09 09:10] LABS: Hepatitis B Surface Antibody Non-Reactive; Hepatitis B Surface Antigen Non-Reactive (Nonreactive)
--- NOTE | 2019-05-09 09:30 | KI_PTH ---
PATIENT: ISABELLA ANDERSON Jr. LOC: MS3 U#:[id number] AGE/SX: 54/M ROOM: [facility] RE05/06/[address]: Dr. Drew Sheldon DO : 1965 BED: 1 DIS: 05/14/2019 SPEC #: [id number] RECD: 05/09/19 09:45 STATUS: DORINDA REQ #: [id number] RINKU: 05/09/19 09:[address]: Chuy Lim DEPT: SURGICAL PATHOLOGY RECD BY: Jeanna Briggs ENTERED: 05/09/19 15:45 SP TYPE: KIDNEY BX OTHR DR: MD Dr. Rodrigo Pratt MD Dr. Tamera Robotham, MD Tissues: Kidney, NOS Procedures: Electron Microscopy (ACH) Fluorescent Antibody (ACH) Sp St Grp II Kidney (ACH) Kidney Biopsy (ACH) Fluorescent antibody (ACH) add'l HEADER OPERATION: CT-guided kidney biopsy PRE-OP DIAGNOSIS: Acute kidney injury TISSUE SUBMITTED: Kidney biopsy 18 gauge x4 MICROSCOPIC DIAGNOSIS Kidney, needle biopsy: Nodular glomerulosclerosis, consistent with diabetic nephrosclerosis. Severe interstitial fibrosis and tubular atrophy. COMMENT Additional clinical information obtained from Dr. Villavicencio. Patient presents with high sugars, blurred vision with hypertensive changes and urine protein. As of 05/10/19, serologies are negative. Taken together, the light, immunofluorescence and electron microscopy findings are diagnostic of nodular glomerulosclerosis. Taken in clinical context, this is most consistent with diabetic nephrosclerosis. There is no evidence for an alternative etiology for the nodular glomerulosclerosis on pathologic examination. Clinical correlation is recommended. MICROSCOPIC DESCRIPTION A needle biopsy is available for review. There are approximately 53 glomeruli present, 22 of which are globally sclerotic and another 2 glomeruli show near total glomerulosclerosis. 20 of the remaining glomeruli show nodular glomerulosclerosis. Glomeruli show no evidence of segmental scars, crescent formation, necrosis thrombosis or inflammation. PAS, silver and trichrome stains show no evidence of glomerular basement of membrane double contours, spikes or fuchsinophilic immune-type deposits. Some glomeruli show hyaline globules. Trichrome stain highlights severe interstitial fibrosis and tubular atrophy. There is mild interstitial inflammation. Arteries show at least mild thickening and arterioles show significant arteriolar hyalinosis which is particularly prominent at the vascular poles of glomeruli. A [place] red stain for amyloid is negative. The tissue submitted for immunofluorescence microscopy contains between 5 and 7 glomeruli per level, 3 of which are globally sclerotic. CD3 shows 2+ coarse peripheral staining in some of the glomeruli, while IgG, IgA, IgM, C1q, albumin, fibrinogen and kappa and lambda light chains all show nonspecific staining. The tissue submitted for electron microscopy contains glomeruli. One glomerulus is imaged. Ultrastructural examination reveals that there is nodular glomerulosclerosis with the increased sclerosis resulting in compression of the capillary loops. Occasional peripheral capillary loops are partially patent. The glomerular basement membranes are of approximately normal caliber. There is increased effacement of the visceral epithelial foot processes over approximately 80% of the remaining capillary loops surface area. There are no electron-dense immune-type deposits seen. Tubules appear unremarkable. GROSS DESCRIPTION The specimen is sent entirely to [facility] for diagnosis. Received within transport media, labeled with the patient's name and designated kidney biopsy are four cores of negrete-pink soft tissue ranging in size from 0.9 to 1.4 cm in length. Tissue is submitted fresh for immunofluorescence, in glutaraldehyde for electron microscopy, and the remaining in formalin for light microscopy.
--- NOTE | 2019-05-09 09:39 | CASEMGMT ---
Pt had informed admitting RN he has LW/POA but is not able to bring in the documents, and that Leatha Daisy is medical POA. REGINO Phillip
--- NOTE | 2019-05-09 10:56 | CASEMGMT ---
SW spoke w/pt in room in regard to completing the Medicaid application. Pt states he needs assist to complete the form. Pt states that someone called him this morning and was going to call him again this afternoon about it. SW explained it was likely someone from the financial dept, will check into it for him. SW also gave pt the 800 number to call [employer] to start the Medicaid process. SW called the financial dept, spoke w/Erika. Pt spoke w/juan antonio earlier today but had a visitor and did not want to speak in front of his visitor, so will call him back this afternoon. SW did let Erika know pt needs help in completing the Medicaid application, they will call pt back and see when is a good time to assist pt with the application. SW let pt know that someone from the financial dept will call him this afternoon to see when a good time will be to complete the Medicaid application. Pt states understanding. REGINO Phillip
[2019-05-09 11:21] LABS: Bedside Glucose 139 mg/dL (70-110)
--- NOTE | 2019-05-09 11:56 | PCM.PN.SRG ---
Patient Problems: Active and Suspected Problems Renal failure (Acute) ARIANE (acute kidney injury) (Acute) Subjective: Patient did get his kidney biopsy done today. Patient has no new complaints. - Physical Exam Vitals/I&O's: Vital Signs Temp Pulse Resp BP Pulse Ox 98.1 F 79 16 141/83 H 99 05/09/19 10:00 05/09/19 10:00 05/09/19 10:00 05/09/19 10:00 05/09/19 10:00 Oxygen Delivery Method [5] Room Air Oxygen Delivery Method [4] Room Air Oxygen Delivery Method [3] Room Air Oxygen Delivery Method [2] Room Air Oxygen Delivery Method [1 ( Room Air Initial Baseline)] Oxygen Delivery Method Room Air Weight: 261 lb 0.437 oz Body Mass Index (BMI) 36.3 Intake and Output for Last 24 Hours 05/07/19 05/08/19 05/09/19 23:59 23:59 23:59 Intake Total 4100 / 4100 700 / 1100 400 / 400 Output Total 950 / 1475 1700 / 1700 Balance 3150 / 2625 -1000 / -600 400 / 400 General: Alert, Oriented x3, Cooperative, No apparent distress HEENT: Atraumatic Lungs: Normal air movement Cardiovascular: Regular Rhythm Abdomen: Soft, Non Tender, Non-Distended Extremities: No clubbing, No cyanosis Laboratory Results 05/07/19 05:08: c-ANCA Antibody <1:20, Atypical p-ANCA <1:20, p-ANCA Antibody <1:20 05/07/19 05:08: AMALIA Screen Negative, NICHOLAS-1 Antibody Not Reportable, SS-A/Ro IgG Antibody Not Reportable, SS-B/La IgG Antibody Not Reportable, Sm (Hall) Antibody Not Reportable, PHYSICIAN ASSISTANT PSYCHIATRY Antibody Not Reportable, Scl-70 Scleroderma Ab Not Reportable, Double Strand DNA Ab Not Reportable, Centromere B Antibody Not Reportable 05/07/19 05:08: Ur Total Protein 24 Hr Pending, Urine Total Protein Pending, Urine Albumin Pending, U Nnpxv-4-Jbyasynz Pending, U Wcasw-8-Mivrdjpz Pending, U Beta Globulin Pending, U Gamma Globulin Pending, U PEP M-El Cancelled, U PEP M-El 24 Hr Cancelled, Urine Immunofixation Cancelled, Urine JAILYN Interpret Cancelled, Ur Immunofix PEP Note Cancelled, Complement C3 Pending, Complement C4 Pending, Hepatitis A IgM Ab Pending, Hepatitis A Ab Total Pending, Hep Bs Antigen Pending, Hep B Core Total Ab Pending, Hep B Core IgM Ab Pending 05/08/19 16:48: POC Glucose 181 H 05/08/19 21:47: POC Glucose 198 H 05/09/19 06:20: WBC 8.5, RBC 3.06 L, Hgb 8.8 L, Hct 26.4 L, MCV 86.3, MCH 28.8, MCHC 33.3, RDW Std Deviation 42.9, RDW Coeff of [place] 13.6, Plt Count 201, MPV 10.6, Immature Gran % (Auto) 0.400, Neut % (Auto) 65.0, Lymph % (Auto) 19.5, [place] % (Auto) 7.0, Eos % (Auto) 7.6 H, Baso % (Auto) 0.5, Absolute Neuts (auto) 5.5, Absolute Lymphs (auto) 1.66, Nucleated RBC % 0 05/09/19 06:20: Sodium 138, Potassium 4.4, Chloride 111 H, Carbon Dioxide 18.0 L, Anion Gap 9, BUN 57 H, Creatinine 6.14 H, Estim Creat Clear Calc 14.31, Est GFR (MDRD) Af Amer 12 L, Est GFR (MDRD) Non-Af 10 L, BUN/Creatinine Ratio 9.3 L, Glucose 119 H, Calcium 8.1 L 05/09/19 06:20: Phosphorus 5.4 H, TSH 64.60 H 05/09/19 06:20: PT 14.6, INR 1.2, APTT 30.8 05/09/19 06:20: Hep B Core Total Ab Pending 05/09/19 06:20: Hep Bs Antigen Non-Reactive, Hep Bs Antibody Non-Reactive 05/09/19 06:20: Hemoglobin A1c 8.2 H 05/09/19 06:52: POC Glucose 117 H 05/09/19 11:07: POC Glucose 139 H Current Medications Acetaminophen (Tylenol) 650 mg PO Q6H PRN PRN PRN Reason: Pain Score 1-10/Temp > 100.7 F Last Admin: 05/07/19 06:54 Dose: 650 mg Documented by: Amlodipine Besylate (Norvasc) 10 mg PO DAILY [facility] Last Admin: 05/08/19 09:51 Dose: 10 mg Documented by: Glucagon () 1 mg IM .X1 PRN PRN Reason: Hypoglycemia Hydralazine HCl (Apresoline Iv) 10 mg IV Q4H PRN PRN PRN Reason: SBP > 160 Last Admin: 05/08/19 13:53 Dose: 10 mg Documented by: Dextrose (Dextrose 10%-Water) 250 mls @ 999 mls/hr IV X1 PRN; Protocol PRN Reason: HYPOGLYCEMIA Insulin Human Lispro (Humalog Kwikpen (Bkc)) 0 unit SC ACHS [facility]; Protocol Last Admin: 05/09/19 06:54 Dose: Not Given Documented by: Labetalol HCl (Trandate) 100 mg PO TID [facility] Last Admin: 05/09/19 06:47 Dose: 100 mg Documented by: Levothyroxine Sodium (Synthroid) 25 mcg PO DAILY@0600 [facility] Last Admin: 05/09/19 06:47 Dose: 25 mcg Documented by: Ondansetron HCl (Zofran) 4 mg IV Q8H PRN PRN PRN Reason: NAUSEA/VOMITING Pantoprazole Sodium (Protonix) 20 mg PO DAILY [facility] Last Admin: 05/08/19 09:51 Dose: Not Given Documented by: Sodium Chloride () 10 - 40 ml IV UD PRN PRN Reason: SALINE FLUSH Last Admin: 05/09/19 09:04 Dose: 10 ml Documented by: Medical Necessity - Tobacco Use Smoking Status: Former smoker Assessment/Plan All Active Problems Renal failure (Acute) ARIANE (acute kidney injury) (Acute) 54-year-old male with renal failure, status post right hemicolectomy due to Crohn's disease, patient also has a history of rectal abscess. Will plan to place right tunneled dialysis catheter today about 245/3 p.m. patient no further questions about the procedure. Tanisha Balbuena M.D. Pager: [phone] [facility] [address] [place] [address], [facility], [address] [place] [address] Office: [phone]
--- NOTE | 2019-05-09 13:27 | CT_ITS ---
PROCEDURE: CT GUIDED PERCUTANEOUS KIDNEY BIOPSY. DATE: May 09, 2019. INDICATION: Male, 54 years old. Acute renal failure. PHYSICIAN: Kwabena Gould M.D. MEDICATIONS: 2 mg of Versed and 50 mcg of fentanyl intravenously. Conscious sedation was performed. Conscious sedation was started at 9:08 AM estimated at 9:30 AM. The patient was independently monitored by the department nurse. ACCESS SITE: Lower pole of the right kidney. NEEDLE: 18-gauge core biopsy needle system. SPECIMEN: 4 18-gauge cores. EBL: None. COMPLICATIONS: None immediate. RADIATION DOSAGE (If Supplied By Facility): CTDIvol = ( 15 ) mGy, DLP = ( 350.86 ) mGycm. Individualized dose augmentation techniques were utilized. The risks, benefits, and alternatives to the procedure and sedation were explained to the patient. The specific risk of hemorrhage requiring further treatment or intervention was detailed and accepted. Written informed consent was obtained. The patient was placed on the CT table in the prone position. Multiple axial images were obtained from the lung base through the caudal extent of the kidneys. An appropriate entry site was identified and a lucero made on the skin. The skin overlying the [right ] posterior flank was prepped and draped in sterile fashion. 1% lidocaine was administered subcutaneously for local anesthesia. Initially, a 22 gauge needle was advanced and CT images confirmed good needle position. The 22 gauge needle was then exchanged for an 17 gauge introducer needle which was advanced. Repeat CT images confirmed good needle trajectory and tip position. The introducer needle was then advanced into the periphery of the inferior renal pole, and CT images were again obtained to confirm exact tip location. The inner stylet of the introducer needle was then removed and an 18 gauge coaxial needle was advanced thru the introducer needle and biopsy performed. A total of [4 ] passes were performed and the specimen collected was sent to Pathology for further evaluation. The needle was withdrawn. Hemostasis was achieved with manual compression and a sterile dressing was applied. Repeat CT images of the biopsy area was performed which demonstrated no gross bleeding or hematoma. The patient tolerated the procedure well without immediate complications. The patient was transported to the [floor/recovery area] in stable condition. CT/Biopsy/Inj or Needle Placement IMPRESSION: Successful CT guided percutaneous kidney biopsy. Electronically Signed: Kwabena Gould, at 10:47 EST , Service support ,
[2019-05-09] MEDS: 0.9% Normal Saline 1,000 ML 30 ML IV (14:03)
--- NOTE | 2019-05-09 14:41 | NURSING ---
TRANSPORTER HERE @ APPROX 1330 TO TAKE PT TO O.R. FOR PROCEDURE-REPORT CALLED TO GLENN IN [facility]
[2019-05-09] MEDS: Cefazolin 2 GM in 0.9% Normal Saline 100 ML IV (14:58)
[2019-05-09] MEDS: Bupiv/Epi 0.25% 30 ML Vial (15:05)
--- NOTE | 2019-05-09 15:10 | PN.RENAL_ITS ---
Patient Problems: Active and Suspected Problems Renal failure (Acute) ARIANE (acute kidney injury) (Acute) Subjective: no new complaints - Physical Exam Vitals/I&O's: Vital Signs Temp Pulse Resp BP Pulse Ox 98.1 F 83 18 165/97 H 100 05/09/19 13:50 05/09/19 13:50 05/09/19 13:50 05/09/19 13:50 05/09/19 13:50 Oxygen Delivery Method [5] Room Air Oxygen Delivery Method [4] Room Air Oxygen Delivery Method [3] Room Air Oxygen Delivery Method [2] Room Air Oxygen Delivery Method [1 ( Room Air Initial Baseline)] Oxygen Delivery Method Room Air Weight: 118.4 kg Body Mass Index (BMI) 36.3 Intake and Output for Last 24 Hours 05/07/19 05/08/19 05/09/19 23:59 23:59 23:59 Intake Total 4100 / 4100 700 / 1100 400 / 400 Output Total 950 / 1475 1700 / 1700 800 / 800 Balance 3150 / 2625 -1000 / -600 -400 / -400 General: Alert, Oriented x3, Cooperative HEENT: Atraumatic, PERRLA, EOMI, Normocephalic Neck: Supple, No JVD, Negative Carotid Bruits Lungs: Clear to auscultation, Normal air movement Cardiovascular: Regular rate, No murmurs Abdomen: Bowel Sounds Present, Soft, Non Tender Extremities: No edema, Capillary Refill Less than 3 Seconds Skin: No rashes, No breakdown Musculoskeletal: No Tenderness to Palpation of Joints or Extremities Neurological: Cranial nerves II-XII grossly intact Psych/Mental Status: Normal Affect, Appropriate Laboratory Results 05/07/19 05:08: c-ANCA Antibody <1:20, Atypical p-ANCA <1:20, p-ANCA Antibody <1:20 05/07/19 05:08: AMALIA Screen Negative, NICHOLAS-1 Antibody Not Reportable, SS-A/Ro IgG Antibody Not Reportable, SS-B/La IgG Antibody Not Reportable, Sm (Hall) Antibody Not Reportable, PAVILION CUTTER Antibody Not Reportable, Scl-70 Scleroderma Ab Not Reportable, Double Strand DNA Ab Not Reportable, Centromere B Antibody Not Reportable 05/07/19 05:08: Ur Total Protein 24 Hr Pending, Urine Total Protein Pending, Urine Albumin Pending, U Rfdgf-3-Eatvjfqt Pending, U Sveqs-1-Ghvhoafy Pending, U Beta Globulin Pending, U Gamma Globulin Pending, U PEP M-El Cancelled, U PEP M-El 24 Hr Cancelled, Urine Immunofixation Cancelled, Urine JAILYN Interpret Cancelled, Ur Immunofix PEP Note Cancelled, Complement C3 Pending, Complement C4 Pending, Hepatitis A IgM Ab Pending, Hepatitis A Ab Total Pending, Hep Bs Antigen Pending, Hep B Core Total Ab Pending, Hep B Core IgM Ab Pending 05/08/19 16:48: POC Glucose 181 H 05/08/19 21:47: POC Glucose 198 H 05/09/19 06:20: WBC 8.5, RBC 3.06 L, Hgb 8.8 L, Hct 26.4 L, MCV 86.3, MCH 28.8, MCHC 33.3, RDW Std Deviation 42.9, RDW Coeff of Glen 13.6, Plt Count 201, MPV 10.6, Immature Gran % (Auto) 0.400, Neut % (Auto) 65.0, Lymph % (Auto) 19.5, [place] % (Auto) 7.0, Eos % (Auto) 7.6 H, Baso % (Auto) 0.5, Absolute Neuts (auto) 5.5, Absolute Lymphs (auto) 1.66, Nucleated RBC % 0 05/09/19 06:20: Sodium 138, Potassium 4.4, Chloride 111 H, Carbon Dioxide 18.0 L , Anion Gap 9, BUN 57 H, Creatinine 6.14 H, Estim Creat Clear Calc 14.31, Est GFR (MDRD) Af Amer 12 L, Est GFR (MDRD) Non-Af 10 L, BUN/Creatinine Ratio 9.3 L, Glucose 119 H, Calcium 8.1 L 05/09/19 06:20: Phosphorus 5.4 H, TSH 64.60 H 05/09/19 06:20: PT 14.6, INR 1.2, APTT 30.8 05/09/19 06:20: Hep B Core Total Ab Pending 05/09/19 06:20: Hep Bs Antigen Non-Reactive, Hep Bs Antibody Non-Reactive 05/09/19 06:20: Hemoglobin A1c 8.2 H 05/09/19 06:52: POC Glucose 117 H 05/09/19 11:07: POC Glucose 139 H Current Medications Acetaminophen (Tylenol) 650 mg PO Q6H PRN PRN PRN Reason: Pain Score 1-10/Temp > 100.7 F Last Admin: 05/07/19 06:54 Dose: 650 mg Documented by: Amlodipine Besylate (Norvasc) 10 mg PO DAILY [facility] Last Admin: 05/08/19 09:51 Dose: 10 mg Documented by: Glucagon () 1 mg IM .X1 PRN PRN Reason: Hypoglycemia Hydralazine HCl (Apresoline Iv) 10 mg IV Q4H PRN PRN PRN Reason: SBP > 160 Last Admin: 05/08/19 13:53 Dose: 10 mg Documented by: Dextrose (Dextrose 10%-Water) 250 mls @ 999 mls/hr IV X1 PRN; Protocol PRN Reason: HYPOGLYCEMIA Sodium Chloride () 1,000 mls @ 30 mls/hr IV .[id number] [facility] Last Admin: 05/09/19 14:03 Dose: 30 mls/hr Documented by: Cefazolin Sodium 2 gm/ Sodium (Chloride) 110 mls @ 150 mls/hr IV X1 ONE Stop: 05/09/19 15:43 Last Admin: 05/09/19 14:58 Dose: 150 mls/hr Documented by: Insulin Human Lispro (Humalog Kwikpen (Bkc)) 0 unit SC ACHS [facility]; Protocol Last Admin: 05/09/19 06:54 Dose: Not Given Documented by: Labetalol HCl (Trandate) 100 mg PO TID [facility] Last Admin: 05/09/19 06:47 Dose: 100 mg Documented by: Levothyroxine Sodium (Synthroid) 25 mcg PO DAILY@0600 [facility] Last Admin: 05/09/19 06:47 Dose: 25 mcg Documented by: Ondansetron HCl (Zofran) 4 mg IV Q8H PRN PRN PRN Reason: NAUSEA/VOMITING Pantoprazole Sodium (Protonix) 20 mg PO DAILY [facility] Last Admin: 05/08/19 09:51 Dose: Not Given Documented by: Sodium Chloride () 10 - 40 ml IV UD PRN PRN Reason: SALINE FLUSH Last Admin: 05/09/19 09:04 Dose: 10 ml Documented by: Medical Necessity - Tobacco Use Smoking Status: Former smoker Assessment/Plan All Active Problems Renal failure (Acute) ARIANE (acute kidney injury) (Acute) Acute kidney injury versus progressive advanced CKD Metabolic acidosis Proteinuria Hypertension Diabetes mellitus Crohn's disease with history of hemicolectomy renal failure. unclear is its chronic or acute has proteinuria serologies that are back are negative for now biopsy done earlier today TDC later today dialysis after
[2019-05-09] MEDS: Heparin 10,000 UNITS/10 ML Vial 10000 UNITS (15:15)
--- NOTE | 2019-05-09 15:28 | PCM.OPRPT ---
Report of Operation Date of Procedure: 05/09/19 Pre-Operative Diagnosis: End-stage renal disease, need for hemodialysis catheter Post-Operative Diagnosis: Same Surgery/Procedure Performed:: Insertion of right IJ tunneled dialysis catheter Type of Anesthesia:: Local MAC Anesthesiologist: Sergio Hardy Special Medications: Ancef 2 g IV x1 Estimated Blood Loss (mL): < 10 cc Fluids Replaced: 300 cc Description of Procedure: After informed consent was given, the patient was brought to the operating room and placed in the supine position. Appropriate time out protocol was followed. He was then given IV conscious sedation for anesthesia. The patient's right upper chest and neck were then prepped with a surgical skin preparation and sterile surgical drapes were placed. After proper landmarks were ascertained, the skin at the upper right chest area was then infiltrated with 1:1 mixture of 1% lidocaine with epinephrine and 0.5% maricaine. A needle trocar was then inserted into the right internal jugular vein with ultrasound guidance-multiple vessels were viewed with u/s and the right IJ was chosen-- and there was good aspiration of venous blood. A wire was then threaded into the needle trocar and this was visualized under fluoroscopy to ensure that the wire was in the superior vena cava. Once this was done, then the needle trocar was removed. A small incision was made with an 11 blade knife at the wire entrance site. The dilator x2 with the introducer sheath attached was then placed over the wire into the right internal jugular vein via the Seldinger technique and this was visualized under fluoroscopy. Next the introducer and sheath were in proper position as visualized by fluoroscopy. The location of the cuffed was estimated on the skin, an incision was made with a 15 blade scalpel. The 14.5 Fr x19 cm Palindrome dual lumen (Lot [id number] reference [id number]) was tunneled from the chest incision to the right neck incision. The sheath was removed. The catheter was placed through the introducer and was positioned with its tip at the junction of the superior vena cava and the right atrium as visualized under fluoroscopy. The cuff of the catheter was in the subcutaneous tissue. The catheter flushed and tequila well with saline. Catheter was also flushed with 1.6 cc of 1-10,000 of heparin. Hemostasis was assured. Silver dressing was placed at the catheter exit site. Catheter was sutured with 3-0 nylon sutures. The neck incision was sutured with interrupted 3-0 Vicryl interrupted sutures x2 and Steri-Strips were placed. A large OpSite was placed over the catheter site and a small OpSite over the neck incision. The patient tolerated the procedure well. Implants Used: 14.5 Fr x19 cm Palindrome dual lumen Lot [id number] reference [id number] Grafts/Implants Used: 14.5 Fr x19 cm Palindrome dual lumen Lot [id number] reference [id number] - Complications none
--- NOTE | 2019-05-09 15:45 | RAD_ITS ---
STUDY: X-RAY CHEST REASON FOR EXAM: Male, 54 years old. DIALYSS CATH PLACEMENT TECHNIQUE: Single AP portable view of the chest. COMPARISON: None. FINDINGS: Right jugular dialysis catheter present with tip projecting in the upper to mid SVC. The lungs are clear and expanded. There is no demonstrated pleural abnormality. Normal size heart. Normal mediastinum and enlda. Normal visualized pulmonary arteries. Normal visualized aortic arch and descending thoracic aorta. There are diffuse degenerative changes of the visualized thoracic spine. Normal visualized ribs, clavicles, and shoulders. There is no demonstrated abnormality of the visualized soft tissue structures of the upper abdomen. RAD/CXR for Line Placement IMPRESSION: Right jugular dialysis catheter with tip terminating in the upper to mid SVC. Electronically Signed: Beny Shay MD ([place]) at 16:21 EST , Service support ,
[2019-05-09 16:51] LABS: Anti-Glomerular Basement Memb 4 units (0-20)
[2019-05-09 18:11] LABS: Bedside Glucose 147 mg/dL (70-110)
[2019-05-09] MEDS: amLODIPine 10 MG Tablet PO (18:22)
[2019-05-09] MEDS: Pantoprazole Sodium 20 MG Tablet PO (18:22)
--- NOTE | 2019-05-09 19:30 | DIALYSIS ---
HD x2 hours completed, 1st treatment, tolerated well, UF 0mL, BP systolic 160s throughout tx, pt received antihypertensive during dialysis, accessed via new right chest tunneled dialysis catheter, worked well, critline ended profile A, next tx planned for tomorrow per nephrology
[2019-05-09] MEDS: Insulin Lispro 100 UNIT/ML INSULN.PEN SC (21:39)
[2019-05-09] MEDS: Acetaminophen 325 MG Tablet 650 MG PO (21:44)
[2019-05-09 22:00] LABS: Bedside Glucose 226 mg/dL (70-110)
[2019-05-10] VITALS (12 sets, daily range): BP systolic 102–161; BP diastolic 52–84; PULSE 78–88; RESP 16–20; TEMP 36.2–36.8; O2SAT 96–98
[2019-05-10 02:17] LABS: Rapid Plasmin Reagin (RPR) NONREACTIVE (NONREACTIVE)
[2019-05-10] MEDS: Labetalol 100 MG Tablet PO ×3 (06:51→22:12)
[2019-05-10] MEDS: Levothyroxine 25 MCG TABLET PO (06:51)
[2019-05-10 06:55] LABS: Bedside Glucose 89 mg/dL (70-110)
[2019-05-10 07:01] LABS: Absolute Lymphocyte Count 1.43 X10^3/uL (0.83-4.51); Absolute Neutrophil Count 3.8 X10^3/uL (2.0-7.7); Basophil# 0.05 X10^3/uL; Basophil% 0.8 % (0-1); Eosinophil# 0.63 X10^3/uL; Eosinophils% 9.7 % (0-5); Hematocrit 25.2 % (40-54); Hemoglobin 8.5 g/dL (13.0-16.5); Lymphocyte # 1.43 X10^3/ul (4.0); Mean Corp Hgb Conc 33.7 g/dL (32-36); Mean Platelet Vol. 10.7 fl (6.2-12.0); Monocyte# 0.63 X10^3/uL; Monocyte% 9.7 % (0-10); NRBC Flagged by Analyzer 0 % (0-5); Neutrophil # 3.76 X10^3/uL (2.7-7.7); Neutrophil % 57.6 % (47-70); Platelet Count 187 K/mm3 (150-450); RBC Distribution Width CV 13.8 % (11.6-14.6); RBC Distribution Width SD 43.6 fl (35.1-43.9); Red Blood Count 2.93 M/mm3 (4.6-6.2); White Blood Count 6.5 K/mm3 (4.4-11.0)
[2019-05-10 07:22] LABS: Anion Gap 5 (5-15); BUN 42 mg/dL (7-18); BUN/Creat Ratio 8.3 RATIO (10-20); Calcium,Total 7.6 mg/dL (8.5-10.1); Chloride 109 mmol/L (98-107); Creatinine, Serum 5.09 mg/dL (0.70-1.30); EST Glomerular Filtration Rate 13 mL/min (>60); Est Glom Filt Rate - Afr Amer 15 mL/min (>60); Estimated Creatinine Clearance 17.26 ml/min; Glucose 90 mg/dL (74-106); Potassium 4.6 mmol/L (3.5-5.1); Sodium Level 139 mmol/L (136-145)
--- NOTE | 2019-05-10 07:45 | NURSING ---
Report called to Suzette DONOHUE in [facility].
--- NOTE | 2019-05-10 07:59 | PCM.PN.HOSP ---
Patient Problems: Active and Suspected Problems Renal failure (Acute) ARIANE (acute kidney injury) (Acute) Reason for Visit: Renal failure Subjective: Patient underwent permacath placement with initiation of dialysis the day prior. Seen this a.m. complain of some discomfort at the site of his catheter insertion Objective: GENERAL: cooperative HEENT: Atraumatic; EYES; Anicteric, Normal Conjunctiva NECK; supple, normal thyroid, RESPIRATORY: Diminished to auscultation CARDIOVASCULAR: Regular S1 S2, GI: soft, normoactive bowel sounds, : No Renal angle tenderness; EXTREMITIES: No edema, no clubbing, MUSCULOSKELETAL: no muscle waisting NEURO: Awake; no lateralizing signs. SKIN: No Rash PSYCH; Flat affect Vitals/I&O's: Vital Signs Temp Pulse Resp BP Pulse Ox 97.9 F 80 16 133/70 H 97 05/10/19 04:12 05/10/19 06:00 05/10/19 04:12 05/10/19 04:12 05/10/19 04:12 Oxygen Delivery Method [5] Room Air Oxygen Delivery Method [4] Room Air Oxygen Delivery Method [3] Room Air Oxygen Delivery Method [2] Room Air Oxygen Delivery Method [1 ( Room Air Initial Baseline)] Oxygen Delivery Method Room Air Weight: 115.1 kg Body Mass Index (BMI) 36.3 Intake and Output for Last 24 Hours 05/08/19 05/09/19 05/10/19 23:59 23:59 23:59 Intake Total 700 / 1100 812.25 / 812.25 160 / 160 Output Total 1700 / 1700 1100 / 1100 1350 / 1350 Balance -1000 / -600 -287.75 / -287.75 -1190 / -1190 Laboratory Results 05/07/19 05:08: Glomerular Base Memb Ab 4 05/07/19 05:08: RPR NONREACTIVE 05/09/19 06:20: Hep Bs Antigen Non-Reactive, Hep Bs Antibody Non-Reactive 05/09/19 06:20: Hemoglobin A1c 8.2 H 05/09/19 11:07: POC Glucose 139 H 05/09/19 18:04: POC Glucose 147 H 05/09/19 21:38: POC Glucose 226 H 05/10/19 06:48: WBC 6.5, RBC 2.93 L, Hgb 8.5 L, Hct 25.2 L, MCV 86.0, MCH 29.0, MCHC 33.7, RDW Std Deviation 43.6, RDW Coeff of Glen 13.8, Plt Count 187, MPV 10.7, Immature Gran % (Auto) 0.200, Neut % (Auto) 57.6, Lymph % (Auto) 22.0, [place] % (Auto) 9.7, Eos % (Auto) 9.7 H, Baso % (Auto) 0.8, Absolute Neuts (auto) 3.8, Absolute Lymphs (auto) 1.43, Nucleated RBC % 0 05/10/19 06:48: Sodium 139, Potassium 4.6, Chloride 109 H, Carbon Dioxide 25.0, Anion Gap 5, BUN 42 H, Creatinine 5.09 H, Estim Creat Clear Calc 17.26, Est GFR (MDRD) Af Amer 15 L, Est GFR (MDRD) Non-Af 13 L, BUN/Creatinine Ratio 8.3 L, Glucose 90, Calcium 7.6 L 05/10/19 06:50: POC Glucose 89 Current Medications Acetaminophen (Tylenol) 650 mg PO Q6H PRN PRN PRN Reason: Pain Score 1-10/Temp > 100.7 F Last Admin: 05/09/19 21:44 Dose: 325 mg Documented by: Amlodipine Besylate (Norvasc) 10 mg PO DAILY [facility] Last Admin: 05/09/19 18:22 Dose: 10 mg Documented by: Glucagon () 1 mg IM .X1 PRN PRN Reason: Hypoglycemia Hydralazine HCl (Apresoline Iv) 10 mg IV Q4H PRN PRN PRN Reason: SBP > 160 Last Admin: 05/08/19 13:53 Dose: 10 mg Documented by: Dextrose (Dextrose 10%-Water) 250 mls @ 999 mls/hr IV X1 PRN; Protocol PRN Reason: HYPOGLYCEMIA Sodium Chloride () 1,000 mls @ 30 mls/hr IV .[id number] [facility] Last Infusion: 05/09/19 16:00 Dose: Infused Documented by: Insulin Human Lispro (Humalog Kwikpen (Bkc)) 0 unit SC ACHS [facility]; Protocol Last Admin: 05/10/19 06:51 Dose: Not Given Documented by: Labetalol HCl (Trandate) 100 mg PO TID [facility] Last Admin: 05/10/19 06:51 Dose: 100 mg Documented by: Levothyroxine Sodium (Synthroid) 25 mcg PO DAILY@0600 [facility] Last Admin: 05/10/19 06:51 Dose: 25 mcg Documented by: Ondansetron HCl (Zofran) 4 mg IV Q8H PRN PRN PRN Reason: NAUSEA/VOMITING Pantoprazole Sodium (Protonix) 20 mg PO DAILY [facility] Last Admin: 05/09/19 18:22 Dose: 20 mg Documented by: Sodium Chloride () 10 - 40 ml IV UD PRN PRN Reason: SALINE FLUSH Last Admin: 05/09/19 09:04 Dose: 10 ml Documented by: STROKE Vital Signs/Narrative: Vital Signs Temp Pulse Resp BP Pulse Ox 05/10/19 06:00 80 05/10/19 04:12 97.9 F 80 16 133/70 H 97 Medical Necessity - Tobacco Use Smoking Status: Former smoker Assessment/Plan All Active Problems Renal failure (Acute) ARIANE (acute kidney injury) (Acute) Patient is a 54-year-old gentleman with multiple comorbidities including hypertension diabetes mellitus type 2 admitted with abnormal labs. Patient was found to have creatinine of 6.08. 1. Renal failure ?Etiology not clear at this point. Patient was on both losartan and metformin the suspected offending medication held on admission patient started on IV fluids with subsequent monitoring of electrolytes. As part of patient management ordered renal ultrasound and consult placed to nephrology ?05/08/2019;Patient seen, virtually no change in kidney function. Diagnostic work-up regarding etiology of his renal failure still pending ?05/09/2019;Patient is scheduled to undergo permacath placement with initiation of dialysis as well as kidney biopsy. Case was also discussed with Dr. Hughes with nephrology the day prior. ?05/10/2019;Patient underwent permacath placement with initiation of dialysis the day prior. Seen this a.m. complain of some discomfort at the site of his catheter insertion 2. Diabetes mellitus type 2 ?With complications including hypoglycemia patient metformin held due to above reasons. Placed on long-acting insulin as well as short acting insulin based on sliding scale. 3. Hypertension ~ blood pressure not optimal. With losartan being held in view of patient impaired kidney function patient was started on amlodipine scheduled in addition to PRN hydralazine 4. Hypothyroidism ~patient is on levothyroxine home dose continued 5. Crohn's disease ?Status post right hemicolectomy currently stable 6. Obesity with BMI of 33 ?Weight loss advised 7. DVT prophylaxis ?SC heparin: Patient has apparently been refusing Code Visit Inpatient E&M: 50417 Subs Hosp L2
--- NOTE | 2019-05-10 08:19 | PN.SURG_ITS ---
Patient Problems: Active and Suspected Problems Renal failure (Acute) ARIANE (acute kidney injury) (Acute) Subjective: Patient denies any issues with dialysis yesterday plan for dialysis again today per patient. - Physical Exam Vitals/I&O's: Vital Signs Temp Pulse Resp BP Pulse Ox 97.9 F 80 16 133/70 H 97 05/10/19 04:12 05/10/19 06:00 05/10/19 04:12 05/10/19 04:12 05/10/19 04:12 Oxygen Delivery Method [5] Room Air Oxygen Delivery Method [4] Room Air Oxygen Delivery Method [3] Room Air Oxygen Delivery Method [2] Room Air Oxygen Delivery Method [1 ( Room Air Initial Baseline)] Oxygen Delivery Method Room Air Weight: 253 lb 12.033 oz Body Mass Index (BMI) 36.3 Intake and Output for Last 24 Hours 05/08/19 05/09/19 05/10/19 23:59 23:59 23:59 Intake Total 700 / 1100 812.25 / 812.25 160 / 160 Output Total 1700 / 1700 1100 / 1100 1350 / 1350 Balance -1000 / -600 -287.75 / -287.75 -1190 / -1190 General: Alert, Oriented x3, Cooperative, No apparent distress Skin: - - Right tunneled IJ dialysis catheter dressed, clean with no amount of blood on the silver dressing Laboratory Results 05/07/19 05:08: Glomerular Base Memb Ab 4 05/07/19 05:08: RPR NONREACTIVE 05/09/19 06:20: Hep Bs Antigen Non-Reactive, Hep Bs Antibody Non-Reactive 05/09/19 06:20: Hemoglobin A1c 8.2 H 05/09/19 11:07: POC Glucose 139 H 05/09/19 18:04: POC Glucose 147 H 05/09/19 21:38: POC Glucose 226 H 05/10/19 06:48: WBC 6.5, RBC 2.93 L, Hgb 8.5 L, Hct 25.2 L, MCV 86.0, MCH 29.0, MCHC 33.7, RDW Std Deviation 43.6, RDW Coeff of Glen 13.8, Plt Count 187, MPV 10.7, Immature Gran % (Auto) 0.200, Neut % (Auto) 57.6, Lymph % (Auto) 22.0, [place] % (Auto) 9.7, Eos % (Auto) 9.7 H, Baso % (Auto) 0.8, Absolute Neuts (auto) 3.8, Absolute Lymphs (auto) 1.43, Nucleated RBC % 0 05/10/19 06:48: Sodium 139, Potassium 4.6, Chloride 109 H, Carbon Dioxide 25.0, Anion Gap 5, BUN 42 H, Creatinine 5.09 H, Estim Creat Clear Calc 17.26, Est GFR (MDRD) Af Amer 15 L, Est GFR (MDRD) Non-Af 13 L, BUN/Creatinine Ratio 8.3 L, Glucose 90, Calcium 7.6 L 05/10/19 06:50: POC Glucose 89 Current Medications Acetaminophen (Tylenol) 650 mg PO Q6H PRN PRN PRN Reason: Pain Score 1-10/Temp > 100.7 F Last Admin: 05/09/19 21:44 Dose: 325 mg Documented by: Amlodipine Besylate (Norvasc) 10 mg PO DAILY [facility] Last Admin: 05/09/19 18:22 Dose: 10 mg Documented by: Glucagon () 1 mg IM .X1 PRN PRN Reason: Hypoglycemia Hydralazine HCl (Apresoline Iv) 10 mg IV Q4H PRN PRN PRN Reason: SBP > 160 Last Admin: 05/08/19 13:53 Dose: 10 mg Documented by: Dextrose (Dextrose 10%-Water) 250 mls @ 999 mls/hr IV X1 PRN; Protocol PRN Reason: HYPOGLYCEMIA Sodium Chloride () 1,000 mls @ 30 mls/hr IV .[id number] [facility] Last Infusion: 05/09/19 16:00 Dose: Infused Documented by: Insulin Human Lispro (Humalog Kwikpen (Bkc)) 0 unit SC [facility]; Protocol Last Admin: 05/10/19 06:51 Dose: Not Given Documented by: Labetalol HCl (Trandate) 100 mg PO TID [facility] Last Admin: 05/10/19 06:51 Dose: 100 mg Documented by: Levothyroxine Sodium (Synthroid) 25 mcg PO DAILY@0600 [facility] Last Admin: 05/10/19 06:51 Dose: 25 mcg Documented by: Ondansetron HCl (Zofran) 4 mg IV Q8H PRN PRN PRN Reason: NAUSEA/VOMITING Pantoprazole Sodium (Protonix) 20 mg PO DAILY [facility] Last Admin: 05/09/19 18:22 Dose: 20 mg Documented by: Sodium Chloride () 10 - 40 ml IV UD PRN PRN Reason: SALINE FLUSH Last Admin: 05/09/19 09:04 Dose: 10 ml Documented by: Medical Necessity - Tobacco Use Smoking Status: Former smoker Assessment/Plan All Active Problems Renal failure (Acute) ARIANE (acute kidney injury) (Acute) 54-year-old male with renal failure status post placement of right tunneled IJ dialysis catheter, status post right hemicolectomy about 15 years ago for Crohn's disease Patient tolerated dialysis well yesterday plan to getting again today. Will sign off call with any questions. Tanisha Balbuena M.D. Pager: [phone] [facility] [address] [place] [address], [facility], [address] [place] [address] Office: [phone] Code Visit Inpatient E&M: 29063 Subs Hosp L1
[2019-05-10] MEDS: Pantoprazole Sodium 20 MG Tablet PO (09:05)
--- NOTE | 2019-05-10 10:42 | CT_ITS ---
STUDY: CT BRAIN WITH AND WITHOUT CONTRAST REASON FOR EXAM: Male, 54 years old. Headaches. Dizziness. Difficulty with speech. RADIATION DOSAGE (If Supplied By Facility): CTDIvol = ( 44.99 ) mGy, DLP = ( 1727.20 ) mGycm TECHNIQUE: Transaxial CT imaging of the brain was performed pre and post contrast administration. The examination was performed with intravenous administration of 50 ML ISOVUE 370. Individualized dose optimization techniques were used for this CT. COMPARISON: None. FINDINGS: Normal soft tissue structures. Normal calvarium. Normal size ventricles and extra-axial spaces for the patient''s age. Normal white matter tracts of the cerebral hemispheres. Normal basal ganglia and thalami. Normal brainstem. Normal cerebellum. There is no intracranial hemorrhage. There are no findings of an acute ischemic infarction. Normal visualized paranasal sinuses. CT/Brain/Head W/WO Contrast IMPRESSION: Normal unenhanced and enhanced CT scan of the brain. Electronically Signed: Kwabena Gould, at 15:08 EST , Service support ,
[2019-05-10] MEDS: Acetaminophen 325 MG Tablet 650 MG PO (10:49)
[2019-05-10] MEDS: amLODIPine 10 MG Tablet PO (11:34)
[2019-05-10 11:36] LABS: Bedside Glucose 131 mg/dL (70-110)
--- NOTE | 2019-05-10 13:25 | CASEMGMT ---
Social Work Note SW placed a call to [facility] and left message for Mirna asking if they are able to assist pt with completing medicaid application. Erika Frederick WHITE SHOE RAGGER, POURER CRANE LADLE
[2019-05-10 14:08] LABS: Hepatitis B Core Ab Total Negative (Negative)
--- NOTE | 2019-05-10 15:17 | CASEMGMT ---
CHARANJIT STRATTON updated by locomotive supervisor Dr. Encarnacion that patient will need HD at discharge. CHARANJIT STRATTON sent referral to [facility]. CM will continue to follow this patient and plan for a safe discharge.
--- NOTE | 2019-05-10 15:30 | CASEMGMT ---
Social Work Note SW in to speak with pt regarding medicaid application. Pt states no one has been in to see him to help him assist medicaid application. SW assisted pt with completion of medicaid application. SW faxed completed medicaid application to [facility]. Pt will need pending medicaid number if pt needs dialysis on discharge. Erika Frederick DIRECTOR CORPORATE COMMUNICATIONS, RELAY CHECKER
--- NOTE | 2019-05-10 15:32 | PN.RENAL_ITS ---
Patient Problems: Active and Suspected Problems Renal failure (Acute) ARIANE (acute kidney injury) (Acute) Subjective: no new complaints - Physical Exam Vitals/I&O's: Vital Signs Temp Pulse Resp BP Pulse Ox 97.2 F L 81 16 124/69 H 97 05/10/19 14:09 05/10/19 14:49 05/10/19 14:09 05/10/19 14:09 05/10/19 14:09 Oxygen Delivery Method [5] Room Air Oxygen Delivery Method [4] Room Air Oxygen Delivery Method [3] Room Air Oxygen Delivery Method [2] Room Air Oxygen Delivery Method [1 ( Room Air Initial Baseline)] Oxygen Delivery Method Room Air Weight: 115.1 kg Body Mass Index (BMI) 36.3 Intake and Output for Last 24 Hours 05/08/19 05/09/19 05/10/19 23:59 23:59 23:59 Intake Total 700 / 1100 812.25 / 812.25 1240 / 1240 Output Total 1700 / 1700 1100 / 1100 1850 / 1850 Balance -1000 / -600 -287.75 / -287.75 -610 / -610 General: Alert, Oriented x3, Cooperative HEENT: Atraumatic, PERRLA, EOMI, Normocephalic Neck: Supple, No JVD, Negative Carotid Bruits Lungs: Clear to auscultation, Normal air movement Cardiovascular: Regular rate, No murmurs Abdomen: Bowel Sounds Present, Soft, Non Tender Extremities: No edema, Capillary Refill Less than 3 Seconds Skin: No rashes, No breakdown Musculoskeletal: No Tenderness to Palpation of Joints or Extremities Neurological: Cranial nerves II-XII grossly intact Psych/Mental Status: Normal Affect, Appropriate Laboratory Results 05/07/19 05:08: Glomerular Base Memb Ab 4 05/07/19 05:08: RPR NONREACTIVE 05/09/19 06:20: Hep B Core Total Ab Negative 05/09/19 18:04: POC Glucose 147 H 05/09/19 21:38: POC Glucose 226 H 05/10/19 06:48: WBC 6.5, RBC 2.93 L, Hgb 8.5 L, Hct 25.2 L, MCV 86.0, MCH 29.0, MCHC 33.7, RDW Std Deviation 43.6, RDW Coeff of Glen 13.8, Plt Count 187, MPV 10.7, Immature Gran % (Auto) 0.200, Neut % (Auto) 57.6, Lymph % (Auto) 22.0, [place] % (Auto) 9.7, Eos % (Auto) 9.7 H, Baso % (Auto) 0.8, Absolute Neuts (auto) 3.8, Absolute Lymphs (auto) 1.43, Nucleated RBC % 0 05/10/19 06:48: Sodium 139, Potassium 4.6, Chloride 109 H, Carbon Dioxide 25.0, Anion Gap 5, BUN 42 H, Creatinine 5.09 H, Estim Creat Clear Calc 17.26, Est GFR (MDRD) Af Amer 15 L, Est GFR (MDRD) Non-Af 13 L, BUN/Creatinine Ratio 8.3 L, Glucose 90, Calcium 7.6 L 05/10/19 06:50: POC Glucose 89 05/10/19 11:20: POC Glucose 131 H Current Medications Acetaminophen (Tylenol) 650 mg PO Q6H PRN PRN PRN Reason: Pain Score 1-10/Temp > 100.7 F Last Admin: 05/10/19 10:49 Dose: 650 mg Documented by: Amlodipine Besylate (Norvasc) 10 mg PO DAILY [facility] Last Admin: 05/10/19 11:34 Dose: 10 mg Documented by: Glucagon () 1 mg IM .X1 PRN PRN Reason: Hypoglycemia Hydralazine HCl (Apresoline Iv) 10 mg IV Q4H PRN PRN PRN Reason: SBP > 160 Last Admin: 05/08/19 13:53 Dose: 10 mg Documented by: Dextrose (Dextrose 10%-Water) 250 mls @ 999 mls/hr IV X1 PRN; Protocol PRN Reason: HYPOGLYCEMIA Sodium Chloride () 1,000 mls @ 30 mls/hr IV .[id number] [facility] Last Infusion: 05/09/19 16:00 Dose: Infused Documented by: Insulin Human Lispro (Humalog Kwikpen (Bkc)) 0 unit SC ACHS [facility]; Protocol Last Admin: 05/10/19 11:21 Dose: Not Given Documented by: Labetalol HCl (Trandate) 100 mg PO TID [facility] Last Admin: 05/10/19 14:20 Dose: 100 mg Documented by: Levothyroxine Sodium (Synthroid) 25 mcg PO DAILY@0600 [facility] Last Admin: 05/10/19 06:51 Dose: 25 mcg Documented by: Ondansetron HCl (Zofran) 4 mg IV Q8H PRN PRN PRN Reason: NAUSEA/VOMITING Pantoprazole Sodium (Protonix) 20 mg PO DAILY [facility] Last Admin: 05/10/19 09:05 Dose: 20 mg Documented by: Sodium Chloride () 10 - 40 ml IV UD PRN PRN Reason: SALINE FLUSH Last Admin: 05/09/19 09:04 Dose: 10 ml Documented by: Medical Necessity - Tobacco Use Smoking Status: Former smoker Assessment/Plan All Active Problems Renal failure (Acute) ARIANE (acute kidney injury) (Acute) Acute kidney injury versus progressive advanced CKD Metabolic acidosis Proteinuria Hypertension Diabetes mellitus Crohn's disease with history of hemicolectomy renal failure. unclear is its chronic or acute has proteinuria serologies that are back are negative for now biopsy done. called pathology. will have a prelim report by end of today TDC placed. had HD yesterday. Likely tomorrow again
[2019-05-10] MEDS: Insulin Lispro 100 UNIT/ML INSULN.PEN SC ×2 (16:43→22:12)
--- NOTE | 2019-05-10 16:50 | CHAPLAIN ---
Type of Pastoral Visit _x__ Initial Visit ___ Follow-up Visit ___ On-call Visit ___ General Patient Visit ___ Spiritual Assessment ___ Family Conference ___ Bereavement ___ Rapid Response ___ Code Blue ___ Other (describe below) Pastoral Care Referral From _x__ Patient ___ Family ___ Nurse ___ Physician ___ Fly Winder ___ Hospital Cleaner ___ Other (describe below) Sacrament/Intervention _x__ Active listening ___ Anointing ___ Catholic ___ Bereavement ___ Communion _x__ [place] exploration ___ _x__ Life review _x__ Prayer ___ Reconciliation ___ Sacrament of Sick _x__ Supportive presence ___ Wedding ___ Other (describe below) Pastoral Comments
[2019-05-10 16:56] LABS: Bedside Glucose 236 mg/dL (70-110)
[2019-05-10 22:21] LABS: Bedside Glucose 229 mg/dL (70-110)
[2019-05-11] VITALS (7 sets, daily range): BP systolic 126–152; BP diastolic 65–84; PULSE 77–87; RESP 16–18; TEMP 36.6–37.1; O2SAT 95–99
[2019-05-11] MEDS: Levothyroxine 25 MCG TABLET PO (06:58)
[2019-05-11] MEDS: Labetalol 100 MG Tablet PO ×3 (06:58→22:04)
[2019-05-11 07:06] LABS: Bedside Glucose 88 mg/dL (70-110)
[2019-05-11 07:12] LABS: Absolute Lymphocyte Count 1.08 X10^3/uL (0.83-4.51); Absolute Neutrophil Count 5.6 X10^3/uL (2.0-7.7); Basophil# 0.05 X10^3/uL; Basophil% 0.6 % (0-1); Eosinophils% 7.4 % (0-5); Hematocrit 25.6 % (40-54); Hemoglobin 8.6 g/dL (13.0-16.5); Lymphocyte # 1.08 X10^3/ul (4.0); Lymphocyte % 13.3 % (19-41); Mean Corp Hgb Conc 33.6 g/dL (32-36); Mean Corpuscular Hgb 29.3 pg (27.0-32.0); Mean Corpuscular Volume 87.1 fL (80-94); Mean Platelet Vol. 10.7 fl (6.2-12.0); Monocyte# 0.75 X10^3/uL; Monocyte% 9.2 % (0-10); NRBC Flagged by Analyzer 0 % (0-5); Neutrophil # 5.62 X10^3/uL (2.7-7.7); Neutrophil % 69.3 % (47-70); Platelet Count 185 K/mm3 (150-450); RBC Distribution Width CV 13.5 % (11.6-14.6); RBC Distribution Width SD 42.8 fl (35.1-43.9); Red Blood Count 2.94 M/mm3 (4.6-6.2); White Blood Count 8.1 K/mm3 (4.4-11.0)
[2019-05-11 07:31] LABS: Anion Gap 8 (5-15); BUN 48 mg/dL (7-18); BUN/Creat Ratio 7.7 RATIO (10-20); Calcium,Total 7.7 mg/dL (8.5-10.1); Chloride 103 mmol/L (98-107); Creatinine, Serum 6.25 mg/dL (0.70-1.30); EST Glomerular Filtration Rate 10 mL/min (>60); Est Glom Filt Rate - Afr Amer 12 mL/min (>60); Estimated Creatinine Clearance 14.06 ml/min; Glucose 85 mg/dL (74-106); Magnesium 2.3 mg/dL (1.6-2.6); Potassium 4.7 mmol/L (3.5-5.1); Sodium Level 133 mmol/L (136-145)
--- NOTE | 2019-05-11 08:49 | PCM.PN.HOSP ---
Patient Problems: Active and Suspected Problems Renal failure (Acute) ARIANE (acute kidney injury) (Acute) Reason for Visit: Patient was started on dialysis for ARIANE on 05/10 after permacath was placed. Patient denies any change in the urine output in last 6 months. Daily urine output about 1100 mL, 1300 mL. Yesterday was 2050 mL Vitals/I&O's: Vital Signs Temp Pulse Resp BP Pulse Ox 98.2 F 79 16 133/77 H 95 05/11/19 03:30 05/11/19 07:30 05/11/19 03:30 05/11/19 03:30 05/11/19 03:30 Oxygen Delivery Method [5] Room Air Oxygen Delivery Method [4] Room Air Oxygen Delivery Method [3] Room Air Oxygen Delivery Method [2] Room Air Oxygen Delivery Method [1 ( Room Air Initial Baseline)] Oxygen Delivery Method Room Air Weight: 255 lb 11.779 oz Body Mass Index (BMI) 36.3 Intake and Output for Last 24 Hours 05/09/19 05/10/19 05/11/19 23:59 23:59 23:59 Intake Total 812.25 / 812.25 1240 / 1440 200 / 200 Output Total 1100 / 1100 2050 / 2475 425 / 425 Balance -287.75 / -287.75 -810 / -1035 -225 / -225 General: Alert, Oriented x3, Cooperative HEENT: Atraumatic, PERRLA, EOMI, Normocephalic Neck: Supple, No JVD, Negative Carotid Bruits Lungs: Clear to auscultation, Normal air movement, No rhonchi, No wheeze, No rales Cardiovascular: Regular rate, Regular Rhythm, Normal S1, Normal S2, No murmurs Abdomen: Bowel Sounds Present, Soft, Non Tender, Non-Distended Extremities: No edema, Capillary Refill Less than 3 Seconds Skin: No rashes, No breakdown, - - Right-sided permacath dialysis catheter Musculoskeletal: No Tenderness to Palpation of Joints or Extremities, Arthritic Changes Neurological: Cranial nerves II-XII grossly intact Psych/Mental Status: Normal Affect, Appropriate Laboratory Results 05/09/19 06:20: Hep B Core Total Ab Negative 05/10/19 11:20: POC Glucose 131 H 05/10/19 16:39: POC Glucose 236 H 05/10/19 22:01: POC Glucose 229 H 05/11/19 06:48: WBC 8.1, RBC 2.94 L, Hgb 8.6 L, Hct 25.6 L, MCV 87.1, MCH 29.3, MCHC 33.6, RDW Std Deviation 42.8, RDW Coeff of Glen 13.5, Plt Count 185, MPV 10.7, Immature Gran % (Auto) 0.200, Neut % (Auto) 69.3, Lymph % (Auto) 13.3 L, [place] % (Auto) 9.2, Eos % (Auto) 7.4 H, Baso % (Auto) 0.6, Absolute Neuts (auto) 5.6, Absolute Lymphs (auto) 1.08, Nucleated RBC % 0 05/11/19 06:48: Sodium 133 L, Potassium 4.7, Chloride 103, Carbon Dioxide 22.0, Anion Gap 8, BUN 48 H, Creatinine 6.25 H, Estim Creat Clear Calc 14.06, Est GFR (MDRD) Af Amer 12 L, Est GFR (MDRD) Non-Af 10 L, BUN/Creatinine Ratio 7.7 L, Glucose 85, Calcium 7.7 L, Magnesium 2.3 05/11/19 06:58: POC Glucose 88 Current Medications Acetaminophen (Tylenol) 650 mg PO Q6H PRN PRN PRN Reason: Pain Score 1-10/Temp > 100.7 F Last Admin: 05/10/19 10:49 Dose: 650 mg Documented by: Amlodipine Besylate (Norvasc) 10 mg PO DAILY [facility] Last Admin: 05/10/19 11:34 Dose: 10 mg Documented by: Glucagon () 1 mg IM .X1 PRN PRN Reason: Hypoglycemia Hydralazine HCl (Apresoline Iv) 10 mg IV Q4H PRN PRN PRN Reason: SBP > 160 Last Admin: 05/08/19 13:53 Dose: 10 mg Documented by: Dextrose (Dextrose 10%-Water) 250 mls @ 999 mls/hr IV X1 PRN; Protocol PRN Reason: HYPOGLYCEMIA Insulin Human Lispro (Humalog Kwikpen (Bkc)) 0 unit SC [facility]; Protocol Last Admin: 05/11/19 07:00 Dose: Not Given Documented by: Labetalol HCl (Trandate) 100 mg PO TID [facility] Last Admin: 05/11/19 06:58 Dose: 100 mg Documented by: Levothyroxine Sodium (Synthroid) 25 mcg PO DAILY@0600 [facility] Last Admin: 05/11/19 06:58 Dose: 25 mcg Documented by: Ondansetron HCl (Zofran) 4 mg IV Q8H PRN PRN PRN Reason: NAUSEA/VOMITING Pantoprazole Sodium (Protonix) 20 mg PO DAILY [facility] Last Admin: 05/10/19 09:05 Dose: 20 mg Documented by: Sodium Chloride () 10 - 40 ml IV UD PRN PRN Reason: SALINE FLUSH Last Admin: 05/09/19 09:04 Dose: 10 ml Documented by: STROKE Vital Signs/Narrative: Vital Signs Pulse 05/11/19 07:30 79 05/11/19 06:00 77 Medical Necessity - Tobacco Use Smoking Status: Former smoker Assessment/Plan All Active Problems Renal failure (Acute) ARIANE (acute kidney injury) (Acute) Patient is a 54-year-old gentleman with multiple comorbidities including hypertension diabetes mellitus type 2 admitted with abnormal labs. Patient was found to have creatinine of 6.08. 1. Acute kidney injury/ESRD: No previous creatinine available to compare. This is mostly secondary to diabetic nephropathy. Patient had kidney biopsy and as per cooker pie filling shows diabetic nephropathy. 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 Immunofluorescence is negative. As per nephrology seems patient will be dialysis dependent going forward. Losartan and metformin were discontinued. ?The patient had dialysis on 05/09 2019. Scheduled for dialysis today. As per cooker pie filling he is stable for discharge but patient does not have insurance and needs dialysis set up and another logistic issues treated up before discharge. 2. Diabetes mellitus type 2 with diabetic nephropathy, ?Metformin is discontinued secondary to hypoglycemia and kidney failure. Blood sugars controlled. Glucoses between 130-250 mg/dL. Most recent 88. 3. Hypertension ~ blood pressure not optimal. With losartan being held in view of patient impaired kidney function patient was started on amlodipine scheduled in addition to PRN hydralazine. On labetalol 100 mg 3 times daily 4. Hypothyroidism ~patient is on levothyroxine home dose continued 5. Crohn's disease ?Status post right hemicolectomy currently stable 6. Obesity with BMI of 33 ?Weight loss advised 7. DVT prophylaxis ?SC heparin: Patient has apparently been refusing Laboratory Results 05/09/19 06:20: Hep B Core Total Ab Negative 05/10/19 16:39: POC Glucose 236 H 05/10/19 22:01: POC Glucose 229 H 05/11/19 06:48: WBC 8.1, RBC 2.94 L, Hgb 8.6 L, Hct 25.6 L, MCV 87.1, MCH 29.3, MCHC 33.6, RDW Std Deviation 42.8, RDW Coeff of Glen 13.5, Plt Count 185, MPV 10.7, Immature Gran % (Auto) 0.200, Neut % (Auto) 69.3, Lymph % (Auto) 13.3 L, [place] % (Auto) 9.2, Eos % (Auto) 7.4 H, Baso % (Auto) 0.6, Absolute Neuts (auto) 5.6, Absolute Lymphs (auto) 1.08, Nucleated RBC % 0 05/11/19 06:48: Sodium 133 L, Potassium 4.7, Chloride 103, Carbon Dioxide 22.0, Anion Gap 8, BUN 48 H, Creatinine 6.25 H, Estim Creat Clear Calc 14.06, Est GFR (MDRD) Af Amer 12 L, Est GFR (MDRD) Non-Af 10 L, BUN/Creatinine Ratio 7.7 L, Glucose 85, Calcium 7.7 L, Magnesium 2.3 05/11/19 06:58: POC Glucose 88 Clinical Impression(s) from Imaging Studies Renal Ultrasound 05/06/19 22:35 IMPRESSION: Normal ultrasound of the kidneys and urinary bladder. Cholelithiasis. Biopsy CT 05/09/19 13:27 IMPRESSION: Successful CT guided percutaneous kidney biopsy. Electronically Signed: Kwabena Gould, at 10:47 EST , Service support , Chest X-Ray 05/09/19 15:45 IMPRESSION: Right jugular dialysis catheter with tip terminating in the upper to mid SVC. Electronically Signed: Beny Shay MD ([place]) at 16:21 EST , Service support , Brain CT 05/10/19 10:42 IMPRESSION: Normal unenhanced and enhanced CT scan of the brain. Code Visit Inpatient E&M: 89533 Subs Hosp L2
[2019-05-11] MEDS: amLODIPine 10 MG Tablet PO (09:34)
--- NOTE | 2019-05-11 12:43 | PCM.PN.REN ---
Patient Problems: Active and Suspected Problems Renal failure (Acute) ARIANE (acute kidney injury) (Acute) Subjective: No new complaints - Physical Exam Vitals/I&O's: Vital Signs Temp Pulse Resp BP Pulse Ox 98.3 F 82 18 143/80 H 99 05/11/19 09:30 05/11/19 09:30 05/11/19 09:30 05/11/19 09:30 05/11/19 09:30 Oxygen Delivery Method [5] Room Air Oxygen Delivery Method [4] Room Air Oxygen Delivery Method [3] Room Air Oxygen Delivery Method [2] Room Air Oxygen Delivery Method [1 ( Room Air Initial Baseline)] Oxygen Delivery Method Room Air Weight: 116 kg Body Mass Index (BMI) 36.3 Intake and Output for Last 24 Hours 05/09/19 05/10/19 05/11/19 23:59 23:59 23:59 Intake Total 812.25 / 812.25 1240 / 1440 200 / 200 Output Total 1100 / 1100 2050 / 2475 425 / 425 Balance -287.75 / -287.75 -810 / -1035 -225 / -225 General: Alert, Oriented x3, Cooperative HEENT: Atraumatic, PERRLA, EOMI, Normocephalic Neck: Supple, No JVD, Negative Carotid Bruits Lungs: Clear to auscultation, Normal air movement Cardiovascular: Regular rate, No murmurs Abdomen: Bowel Sounds Present, Soft, Non Tender Extremities: No edema, Capillary Refill Less than 3 Seconds Skin: No rashes, No breakdown Musculoskeletal: No Tenderness to Palpation of Joints or Extremities Neurological: Cranial nerves II-XII grossly intact Psych/Mental Status: Normal Affect, Appropriate Laboratory Results 05/09/19 06:20: Hep B Core Total Ab Negative 05/10/19 16:39: POC Glucose 236 H 05/10/19 22:01: POC Glucose 229 H 05/11/19 06:48: WBC 8.1, RBC 2.94 L, Hgb 8.6 L, Hct 25.6 L, MCV 87.1, MCH 29.3, MCHC 33.6, RDW Std Deviation 42.8, RDW Coeff of Glen 13.5, Plt Count 185, MPV 10.7, Immature Gran % (Auto) 0.200, Neut % (Auto) 69.3, Lymph % (Auto) 13.3 L, [place] % (Auto) 9.2, Eos % (Auto) 7.4 H, Baso % (Auto) 0.6, Absolute Neuts (auto) 5.6, Absolute Lymphs (auto) 1.08, Nucleated RBC % 0 05/11/19 06:48: Sodium 133 L, Potassium 4.7, Chloride 103, Carbon Dioxide 22.0, Anion Gap 8, BUN 48 H, Creatinine 6.25 H, Estim Creat Clear Calc 14.06, Est GFR (MDRD) Af Amer 12 L, Est GFR (MDRD) Non-Af 10 L, BUN/Creatinine Ratio 7.7 L, Glucose 85, Calcium 7.7 L, Magnesium 2.3 05/11/19 06:58: POC Glucose 88 Current Medications Acetaminophen (Tylenol) 650 mg PO Q6H PRN PRN PRN Reason: Pain Score 1-10/Temp > 100.7 F Last Admin: 05/10/19 10:49 Dose: 650 mg Documented by: Amlodipine Besylate (Norvasc) 10 mg PO DAILY [facility] Last Admin: 05/11/19 09:34 Dose: 10 mg Documented by: Glucagon () 1 mg IM .X1 PRN PRN Reason: Hypoglycemia Hydralazine HCl (Apresoline Iv) 10 mg IV Q4H PRN PRN PRN Reason: SBP > 160 Last Admin: 05/08/19 13:53 Dose: 10 mg Documented by: Dextrose (Dextrose 10%-Water) 250 mls @ 999 mls/hr IV X1 PRN; Protocol PRN Reason: HYPOGLYCEMIA Insulin Human Lispro (Humalog Kwikpen (Bkc)) 0 unit SC [facility]; Protocol Last Admin: 05/11/19 07:00 Dose: Not Given Documented by: Labetalol HCl (Trandate) 100 mg PO TID [facility] Last Admin: 05/11/19 06:58 Dose: 100 mg Documented by: Levothyroxine Sodium (Synthroid) 25 mcg PO DAILY@0600 [facility] Last Admin: 05/11/19 06:58 Dose: 25 mcg Documented by: Ondansetron HCl (Zofran) 4 mg IV Q8H PRN PRN PRN Reason: NAUSEA/VOMITING Pantoprazole Sodium (Protonix) 20 mg PO DAILY [facility] Last Admin: 05/11/19 09:38 Dose: Not Given Documented by: Sodium Chloride () 10 - 40 ml IV UD PRN PRN Reason: SALINE FLUSH Last Admin: 05/09/19 09:04 Dose: 10 ml Documented by: Medical Necessity - Tobacco Use Smoking Status: Former smoker Assessment/Plan All Active Problems Renal failure (Acute) ARIANE (acute kidney injury) (Acute) Renal failure. Discussed with pathology at [facility]. He has diffuse nodular glomerulosclerosis consistent with diabetic nephropathy. Immunofluorescence is essentially negative. There were some fibrous crescents but in the setting of negative serology, absent immunofluorescence, absent cellular crescents I doubt there is any other process going on. Electron microscopy is pending but I do not think it will change the diagnosis. In summary he has diabetic nephropathy. Has chronic renal failure with no treatable disease. Will be dialysis dependent going forward. Explained to the patient these findings. Explained to him that his options are to continue dialysis and try to get transplant later date. 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 Due to his insurance situation, options are limited. He has history of extensive Crohn's disease and had a large colon surgery 20 years ago in [place]. Right now he has a midline scar extending from the sternum all the way to the pubic area. Due to this I do not think he can do peritoneal dialysis. I did explain to him briefly about home hemodialysis but the presence of catheter precludes this right now. We will send him to in center dialysis for now with an option of sending to home hemodialysis at a later date. Anemia. Will start erythropoietin as outpatient Hypertension. Blood pressure is acceptable. Right IJ tunneled dialysis catheter in place. Discussed with social insurance adviser, dialysis unit. Once his dialysis chair time is confirmed, he can be discharged from renal standpoint.
--- NOTE | 2019-05-11 13:25 | CASEMGMT ---
CHARANJIT STRATTON called and spoke with Jamison at [facility]. Per Jamison working on schedule. CHARANJIT STRATTON faxed referral to [facility]. CM will continue to follow this patient and plan for a safe discharge.
[2019-05-11] MEDS: Heparin 10,000 UNITS/10 ML Vial IV (14:00)
[2019-05-11 14:07] LABS: Immunoglobulin A 225 mg/dL (90-386); Immunoglobulin G 716 mg/dL (700-1600); Immunoglobulin M 116 mg/dL (20-172)
[2019-05-11] MEDS: Insulin Lispro 100 UNIT/ML INSULN.PEN SC ×3 (14:11→22:02)
[2019-05-11] MEDS: Acetaminophen 325 MG Tablet 650 MG PO (14:16)
[2019-05-11 14:21] LABS: Bedside Glucose 159 mg/dL (70-110)
--- NOTE | 2019-05-11 14:43 | DIALYSIS ---
Addendum entered by Chaim Basilio 05/11/19 14:43: Pt tolerated 3hr HD tx well. Net UF-2000ml. Original Note: Pt toerated 3hr HD tx well. Net UF -2000ml. See flow record for tx data.
[2019-05-11 18:11] LABS: Bedside Glucose 198 mg/dL (70-110)
--- NOTE | 2019-05-11 19:45 | NURSING ---
pt refusing scd's.
[2019-05-11 22:56] LABS: Bedside Glucose 280 mg/dL (70-110)
[2019-05-12 05:26] VITALS: BP 141/81; PULSE 82; RESP 16; TEMP 36.8; O2SAT 96
[2019-05-12] MEDS: Levothyroxine 25 MCG TABLET PO (05:28)
[2019-05-12] MEDS: Labetalol 100 MG Tablet PO ×3 (05:28→22:11)
[2019-05-12] MEDS: Insulin Lispro 100 UNIT/ML INSULN.PEN SC ×4 (06:40→22:07)
[2019-05-12 06:51] LABS: Bedside Glucose 206 mg/dL (70-110)
[2019-05-12 07:28] LABS: Absolute Lymphocyte Count 1.39 X10^3/uL (0.83-4.51); Absolute Neutrophil Count 3.8 X10^3/uL (2.0-7.7); Basophil# 0.04 X10^3/uL; Basophil% 0.6 % (0-1); Eosinophil# 0.55 X10^3/uL; Eosinophils% 8.5 % (0-5); Hematocrit 25.4 % (40-54); Hemoglobin 8.4 g/dL (13.0-16.5); Lymphocyte # 1.39 X10^3/ul (4.0); Lymphocyte % 21.6 % (19-41); Mean Corp Hgb Conc 33.1 g/dL (32-36); Mean Corpuscular Hgb 28.5 pg (27.0-32.0); Mean Corpuscular Volume 86.1 fL (80-94); Mean Platelet Vol. 11.2 fl (6.2-12.0); Monocyte# 0.66 X10^3/uL; Monocyte% 10.2 % (0-10); NRBC Flagged by Analyzer 0 % (0-5); Neutrophil # 3.79 X10^3/uL (2.7-7.7); Neutrophil % 58.9 % (47-70); Platelet Count 174 K/mm3 (150-450); RBC Distribution Width CV 13.2 % (11.6-14.6); RBC Distribution Width SD 41.5 fl (35.1-43.9); Red Blood Count 2.95 M/mm3 (4.6-6.2); White Blood Count 6.4 K/mm3 (4.4-11.0)
[2019-05-12 07:55] LABS: Anion Gap 7 (5-15); BUN 34 mg/dL (7-18); BUN/Creat Ratio 6.9 RATIO (10-20); Calcium,Total 7.4 mg/dL (8.5-10.1); Chloride 98 mmol/L (98-107); Creatinine, Serum 4.91 mg/dL (0.70-1.30); EST Glomerular Filtration Rate 13 mL/min (>60); Est Glom Filt Rate - Afr Amer 16 mL/min (>60); Estimated Creatinine Clearance 17.89 ml/min; Glucose 197 mg/dL (74-106); Potassium 4.5 mmol/L (3.5-5.1); Sodium Level 130 mmol/L (136-145)
[2019-05-12] MEDS: Acetaminophen 325 MG Tablet 650 MG PO ×2 (09:07→22:15)
[2019-05-12] MEDS: amLODIPine 10 MG Tablet PO (09:08)
--- NOTE | 2019-05-12 09:30 | PN_ITS ---
Patient Problems: Active and Suspected Problems Renal failure (Acute) ARIANE (acute kidney injury) (Acute) Reason for Visit: New onset hemodialysis through right permacath. Diabetic nephropathy/ESRD unclear whether to be temporary or permanent dialysis Objective: Blood pressure stable. Glucose is controlled. Vitals/I&O's: Vital Signs Temp Pulse Resp BP Pulse Ox 98.2 F 82 16 141/81 H 96 05/12/19 05:26 05/12/19 05:26 05/12/19 05:26 05/12/19 05:26 05/12/19 05:26 Oxygen Delivery Method [5] Room Air Oxygen Delivery Method [4] Room Air Oxygen Delivery Method [3] Room Air Oxygen Delivery Method [2] Room Air Oxygen Delivery Method [1 ( Room Air Initial Baseline)] Oxygen Delivery Method Room Air Weight: 253 lb 1.451 oz Body Mass Index (BMI) 36.3 Intake and Output for Last 24 Hours 05/10/19 05/11/19 05/12/19 23:59 23:59 23:59 Intake Total 1240 / 1440 1280 / 1280 50 / 50 Output Total 2050 / 2475 2625 / 2625 475 / 475 Balance -810 / -1035 -1345 / -1345 -425 / -425 General: Alert, Oriented x3, Cooperative HEENT: Atraumatic, PERRLA, EOMI, Normocephalic Neck: Supple, No JVD, Negative Carotid Bruits Lungs: Clear to auscultation, Normal air movement, No rhonchi, No wheeze, No rales Cardiovascular: Regular rate, Regular Rhythm, Normal S1, Normal S2, No murmurs Abdomen: Bowel Sounds Present, Soft, Non Tender, Non-Distended Extremities: No edema, Capillary Refill Less than 3 Seconds Skin: No rashes, No breakdown Musculoskeletal: No Tenderness to Palpation of Joints or Extremities Lymphatic: No Cervical, Supraclavicular, or Inguinal Adenopathy Neurological: Cranial nerves II-XII grossly intact Psych/Mental Status: Normal Affect, Appropriate Laboratory Results 05/07/19 05:08: IgG 716, IgA 225, IgM 116, Serum Immunofixation Comment, Serum Cryoglobulins Comment 05/11/19 14:10: POC Glucose 159 H 05/11/19 17:59: POC Glucose 198 H 05/11/19 22:01: POC Glucose 280 H 05/12/19 06:39: POC Glucose 206 H 05/12/19 06:47: WBC 6.4, RBC 2.95 L, Hgb 8.4 L, Hct 25.4 L, MCV 86.1, MCH 28.5, MCHC 33.1, RDW Std Deviation 41.5, RDW Coeff of Glen 13.2, Plt Count 174, MPV 11.2, Immature Gran % (Auto) 0.200, Neut % (Auto) 58.9, Lymph % (Auto) 21.6, [place] % (Auto) 10.2 H, Eos % (Auto) 8.5 H, Baso % (Auto) 0.6, Absolute Neuts (auto) 3.8, Absolute Lymphs (auto) 1.39, Nucleated RBC % 0 05/12/19 06:47: Sodium 130 L, Potassium 4.5, Chloride 98, Carbon Dioxide 25.0, Anion Gap 7, BUN 34 H, Creatinine 4.91 H, Estim Creat Clear Calc 17.89, Est GFR (MDRD) Af Amer 16 L, Est GFR (MDRD) Non-Af 13 L, BUN/Creatinine Ratio 6.9 L, Glucose 197 H, Calcium 7.4 L Current Medications Acetaminophen (Tylenol) 650 mg PO Q6H PRN PRN PRN Reason: Pain Score 1-10/Temp > 100.7 F Last Admin: 05/12/19 09:07 Dose: 650 mg Documented by: Amlodipine Besylate (Norvasc) 10 mg PO DAILY [facility] Last Admin: 05/12/19 09:08 Dose: 10 mg Documented by: Bisacodyl (Dulcolax) 10 mg RECTAL DAILY PRN PRN Reason: Constipation Glucagon () 1 mg IM .X1 PRN PRN Reason: Hypoglycemia Hydralazine HCl (Apresoline Iv) 10 mg IV Q4H PRN PRN PRN Reason: SBP > 160 Last Admin: 05/08/19 13:53 Dose: 10 mg Documented by: Dextrose (Dextrose 10%-Water) 250 mls @ 999 mls/hr IV X1 PRN; Protocol PRN Reason: HYPOGLYCEMIA Insulin Human Lispro (Humalog Kwikpen (Bkc)) 0 unit SC [facility]; Protocol Last Admin: 05/12/19 06:40 Dose: 2 units Documented by: Labetalol HCl (Trandate) 100 mg PO TID [facility] Last Admin: 05/12/19 05:28 Dose: 100 mg Documented by: Levothyroxine Sodium (Synthroid) 25 mcg PO DAILY@0600 [facility] Last Admin: 05/12/19 05:28 Dose: 25 mcg Documented by: Ondansetron HCl (Zofran) 4 mg IV Q8H PRN PRN PRN Reason: NAUSEA/VOMITING Pantoprazole Sodium (Protonix) 20 mg PO DAILY [facility] Last Admin: 05/12/19 09:08 Dose: Not Given Documented by: Senna/Docusate Sodium (Senokot-S, Jonna-Colace) 2 tablet PO BID [facility] Last Admin: 05/12/19 09:06 Dose: Not Given Documented by: Sodium Chloride () 10 - 40 ml IV UD PRN PRN Reason: SALINE FLUSH Last Admin: 05/09/19 09:04 Dose: 10 ml Documented by: Medical Necessity - Tobacco Use Smoking Status: Former smoker Assessment/Plan All Active Problems Renal failure (Acute) ARIANE (acute kidney injury) (Acute) Patient is a 54-year-old gentleman with multiple comorbidities including hypertension diabetes mellitus type 2 admitted with abnormal labs. Patient was found to have creatinine of 6.08. 1. Acute kidney injury/ESRD: No previous creatinine available to compare. This is mostly secondary to diabetic nephropathy. Patient had kidney biopsy and as per store group manager shows diabetic nephropathy. 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 Immunofluorescence is negative. As per nephrology seems patient will be dialysis dependent going forward. Losartan and metformin were discontinued. ?The patient had dialysis on 05/09 2019. Scheduled for dialysis today. As per store group manager he is stable for discharge but patient does not have insurance and needs dialysis set up and another logistic issues treated up before discharge. 05/12: We will stay until we can in order to set up new dialysis as an outpatient. 2. Diabetes mellitus type 2 with diabetic nephropathy, ?Metformin is discontinued secondary to hypoglycemia and kidney failure. Blood sugars controlled. Glucoses between 130-250 mg/dL. Most recent 88. 05/12: Lantus 10 units subcutaneous daily ordered. 3. Hypertension ~ blood pressure not optimal. With losartan being held in view of patient impaired kidney function patient was started on amlodipine scheduled in addition to PRN hydralazine. On labetalol 100 mg 3 times daily 4. Hypothyroidism ~patient is on levothyroxine home dose continued 5. Crohn's disease ?Status post right hemicolectomy currently stable 6. Obesity with BMI of 33 ?Weight loss advised 7. DVT prophylaxis ?SC heparin: Patient has apparently been refusing Laboratory Results 05/07/19 05:08: IgG 716, IgA 225, IgM 116, Serum Immunofixation Comment, Serum Cryoglobulins Comment 05/11/19 14:10: POC Glucose 159 H 05/11/19 17:59: POC Glucose 198 H 05/11/19 22:01: POC Glucose 280 H 05/12/19 06:39: POC Glucose 206 H 05/12/19 06:47: WBC 6.4, RBC 2.95 L, Hgb 8.4 L, Hct 25.4 L, MCV 86.1, MCH 28.5, MCHC 33.1, RDW Std Deviation 41.5, RDW Coeff of Glen 13.2, Plt Count 174, MPV 11.2, Immature Gran % (Auto) 0.200, Neut % (Auto) 58.9, Lymph % (Auto) 21.6, [place] % (Auto) 10.2 H, Eos % (Auto) 8.5 H, Baso % (Auto) 0.6, Absolute Neuts (auto) 3.8, Absolute Lymphs (auto) 1.39, Nucleated RBC % 0 05/12/19 06:47: Sodium 130 L, Potassium 4.5, Chloride 98, Carbon Dioxide 25.0, Anion Gap 7, BUN 34 H, Creatinine 4.91 H, Estim Creat Clear Calc 17.89, Est GFR (MDRD) Af Amer 16 L, Est GFR (MDRD) Non-Af 13 L, BUN/Creatinine Ratio 6.9 L, Glucose 197 H, Calcium 7.4 L Clinical Impression(s) from Imaging Studies Renal Ultrasound 05/06/19 22:35 IMPRESSION: Normal ultrasound of the kidneys and urinary bladder. Cholelithiasis. Biopsy CT 05/09/19 13:27 IMPRESSION: Successful CT guided percutaneous kidney biopsy. Electronically Signed: Kwabena Gould, at 10:47 EST , Service support , Chest X-Ray 05/09/19 15:45 IMPRESSION: Right jugular dialysis catheter with tip terminating in the upper to mid SVC. Electronically Signed: Beny Shay MD ([place]) at 16:21 EST , Service support , Brain CT 05/10/19 10:42 IMPRESSION: Normal unenhanced and enhanced CT scan of the brain. Code Visit Inpatient E&M: 36624 Subs Hosp L2
[2019-05-12 09:37] VITALS: BP 138/79; PULSE 80; RESP 18; TEMP 36.7; O2SAT 96
--- NOTE | 2019-05-12 12:15 | PN.RENAL_ITS ---
Patient Problems: Active and Suspected Problems Renal failure (Acute) ARIANE (acute kidney injury) (Acute) Subjective: Solute accumulating - Physical Exam Vitals/I&O's: Vital Signs Temp Pulse Resp BP Pulse Ox 98.1 F 80 18 138/79 H 96 05/12/19 09:37 05/12/19 09:37 05/12/19 09:37 05/12/19 09:37 05/12/19 09:37 Oxygen Delivery Method [5] Room Air Oxygen Delivery Method [4] Room Air Oxygen Delivery Method [3] Room Air Oxygen Delivery Method [2] Room Air Oxygen Delivery Method [1 ( Room Air Initial Baseline)] Oxygen Delivery Method Room Air Weight: 114.8 kg Body Mass Index (BMI) 36.3 Intake and Output for Last 24 Hours 05/10/19 05/11/19 05/12/19 23:59 23:59 23:59 Intake Total 1240 / 1440 1280 / 1280 250 / 250 Output Total 2050 / 2475 2625 / 2625 725 / 725 Balance -810 / -1035 -1345 / -1345 -475 / -475 General: Alert, Oriented x3, Cooperative HEENT: Atraumatic, PERRLA, EOMI, Normocephalic Neck: Supple, No JVD, Negative Carotid Bruits Lungs: Clear to auscultation, Normal air movement Cardiovascular: Regular rate, No murmurs Abdomen: Bowel Sounds Present, Soft, Non Tender Extremities: No edema, Capillary Refill Less than 3 Seconds Skin: No rashes, No breakdown Musculoskeletal: No Tenderness to Palpation of Joints or Extremities Neurological: Cranial nerves II-XII grossly intact Psych/Mental Status: Normal Affect, Appropriate Laboratory Results 05/07/19 05:08: IgG 716, IgA 225, IgM 116, Serum Immunofixation Comment, Serum Cryoglobulins Comment 05/11/19 14:10: POC Glucose 159 H 05/11/19 17:59: POC Glucose 198 H 05/11/19 22:01: POC Glucose 280 H 05/12/19 06:39: POC Glucose 206 H 05/12/19 06:47: WBC 6.4, RBC 2.95 L, Hgb 8.4 L, Hct 25.4 L, MCV 86.1, MCH 28.5, MCHC 33.1, RDW Std Deviation 41.5, RDW Coeff of Glen 13.2, Plt Count 174, MPV 11.2, Immature Gran % (Auto) 0.200, Neut % (Auto) 58.9, Lymph % (Auto) 21.6, [place] % (Auto) 10.2 H, Eos % (Auto) 8.5 H, Baso % (Auto) 0.6, Absolute Neuts (auto) 3.8, Absolute Lymphs (auto) 1.39, Nucleated RBC % 0 05/12/19 06:47: Sodium 130 L, Potassium 4.5, Chloride 98, Carbon Dioxide 25.0, Anion Gap 7, BUN 34 H, Creatinine 4.91 H, Estim Creat Clear Calc 17.89, Est GFR (MDRD) Af Amer 16 L, Est GFR (MDRD) Non-Af 13 L, BUN/Creatinine Ratio 6.9 L, Glucose 197 H, Calcium 7.4 L Current Medications Acetaminophen (Tylenol) 650 mg PO Q6H PRN PRN PRN Reason: Pain Score 1-10/Temp > 100.7 F Last Admin: 05/12/19 09:07 Dose: 650 mg Documented by: Amlodipine Besylate (Norvasc) 10 mg PO DAILY [facility] Last Admin: 05/12/19 09:08 Dose: 10 mg Documented by: Bisacodyl (Dulcolax) 10 mg RECTAL DAILY PRN PRN Reason: Constipation Glucagon () 1 mg IM .X1 PRN PRN Reason: Hypoglycemia Hydralazine HCl (Apresoline Iv) 10 mg IV Q4H PRN PRN PRN Reason: SBP > 160 Last Admin: 05/08/19 13:53 Dose: 10 mg Documented by: Dextrose (Dextrose 10%-Water) 250 mls @ 999 mls/hr IV X1 PRN; Protocol PRN Reason: HYPOGLYCEMIA Insulin Glargine (Lantus (Bk)) 10 units SC DAILY [facility] Insulin Human Lispro (Humalog Kwikpen ([facility])) 0 unit SC ACHS [facility]; Protocol Last Admin: 05/12/19 06:40 Dose: 2 units Documented by: Labetalol HCl (Trandate) 100 mg PO TID [facility] Last Admin: 05/12/19 05:28 Dose: 100 mg Documented by: Levothyroxine Sodium (Synthroid) 25 mcg PO DAILY@0600 [facility] Last Admin: 05/12/19 05:28 Dose: 25 mcg Documented by: Ondansetron HCl (Zofran) 4 mg IV Q8H PRN PRN PRN Reason: NAUSEA/VOMITING Pantoprazole Sodium (Protonix) 20 mg PO DAILY [facility] Last Admin: 05/12/19 09:08 Dose: Not Given Documented by: Senna/Docusate Sodium (Senokot-S, Jonna-Colace) 2 tablet PO BID [facility] Last Admin: 05/12/19 09:06 Dose: Not Given Documented by: Sodium Chloride () 10 - 40 ml IV UD PRN PRN Reason: SALINE FLUSH Last Admin: 05/09/19 09:04 Dose: 10 ml Documented by: Medical Necessity - Tobacco Use Smoking Status: Former smoker Assessment/Plan All Active Problems Renal failure (Acute) ARIANE (acute kidney injury) (Acute) Renal failure. Discussed with pathology at [facility]. He has diffuse nodular glomerulosclerosis consistent with diabetic nephropathy. Immunofluorescence is essentially negative. There were some fibrous crescents but in the setting of negative serology, absent immunofluorescence, absent cellular crescents I doubt there is any other process going on. Electron microscopy is pending but I do not think it will change the diagnosis. In summary he has diabetic nephropathy. Has chronic renal failure with no treatable disease. Will be dialysis dependent going forward. Explained to the patient these findings. Explained to him that his options are to continue dialysis and try to get transplant later date. 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 Due to his insurance situation, options are limited. He has history of extensive Crohn's disease and had a large colon surgery 20 years ago in [place]. Right now he has a midline scar extending from the sternum all the way to the pubic area. Due to this I do not think he can do peritoneal dialysis. I did explain to him briefly about home hemodialysis but the presence of catheter precludes this right now. We will send him to in center dialysis for now with an option of sending to home hemodialysis at a later date. Anemia. on erythropoietin as outpatient Hypertension. Blood pressure is acceptable. Right IJ tunneled dialysis catheter in place.HD today Discussed with social media manager, dialysis unit. Once his dialysis chair time is confirmed, he can be discharged from renal standpoint.
[2019-05-12 13:51] LABS: Bedside Glucose 170 mg/dL (70-110)
[2019-05-12 14:07] VITALS: BP 125/74; PULSE 82; RESP 18; TEMP 36.7; O2SAT 98
[2019-05-12 17:16] LABS: Bedside Glucose 175 mg/dL (70-110)
[2019-05-12 22:00] VITALS: BP 137/83; PULSE 72; RESP 18; TEMP 37.1; O2SAT 94
[2019-05-12] MEDS: Senna/Docusate Sodium 1 Tablet 2 TABLET PO (22:12)
[2019-05-13 00:16] LABS: Bedside Glucose 186 mg/dL (70-110)
[2019-05-13 04:00] VITALS: BP 133/71; PULSE 75; RESP 16; TEMP 36.7
[2019-05-13 06:44] LABS: Absolute Neutrophil Count 4.4 X10^3/uL (2.0-7.7); Basophil# 0.05 X10^3/uL; Basophil% 0.7 % (0-1); Eosinophil# 0.74 X10^3/uL; Eosinophils% 9.7 % (0-5); Hematocrit 25.1 % (40-54); Hemoglobin 8.3 g/dL (13.0-16.5); Lymphocyte % 20.9 % (19-41); Mean Corp Hgb Conc 33.1 g/dL (32-36); Mean Corpuscular Hgb 28.4 pg (27.0-32.0); Mean Platelet Vol. 11.9 fl (6.2-12.0); Monocyte# 0.87 X10^3/uL; Monocyte% 11.4 % (0-10); NRBC Flagged by Analyzer 0 % (0-5); Neutrophil # 4.39 X10^3/uL (2.7-7.7); Neutrophil % 57.2 % (47-70); Platelet Count 175 K/mm3 (150-450); RBC Distribution Width CV 13.2 % (11.6-14.6); RBC Distribution Width SD 41.4 fl (35.1-43.9); Red Blood Count 2.92 M/mm3 (4.6-6.2); White Blood Count 7.7 K/mm3 (4.4-11.0)
[2019-05-13] MEDS: Levothyroxine 25 MCG TABLET PO (06:45)
[2019-05-13] MEDS: Labetalol 100 MG Tablet PO ×3 (06:45→22:07)
[2019-05-13] MEDS: Insulin Lispro 100 UNIT/ML INSULN.PEN SC ×3 (06:48→22:07)
[2019-05-13] MEDS: 0.9% Saline Lock 10 ML Syringe IV ×2 (06:54→22:00)
[2019-05-13 07:05] LABS: Bedside Glucose 183 mg/dL (70-110)
[2019-05-13 07:06] LABS: Anion Gap 10 (5-15); BUN 41 mg/dL (7-18); BUN/Creat Ratio 7.1 RATIO (10-20); Calcium,Total 8.1 mg/dL (8.5-10.1); Chloride 98 mmol/L (98-107); Creatinine, Serum 5.78 mg/dL (0.70-1.30); EST Glomerular Filtration Rate 11 mL/min (>60); Est Glom Filt Rate - Afr Amer 13 mL/min (>60); Glucose 188 mg/dL (74-106); Potassium 4.3 mmol/L (3.5-5.1); Sodium Level 132 mmol/L (136-145)
[2019-05-13 07:45] VITALS: BP 123/68; PULSE 76; RESP 17; TEMP 37.7; O2SAT 100
[2019-05-13] MEDS: Pantoprazole Sodium 20 MG Tablet PO (11:00)
[2019-05-13] MEDS: amLODIPine 10 MG Tablet PO (11:00)
[2019-05-13 11:10] LABS: Bedside Glucose 144 mg/dL (70-110)
[2019-05-13 11:45] VITALS: BP 153/82; PULSE 80; RESP 20; TEMP 36.6
--- NOTE | 2019-05-13 12:12 | PCM.PN.REN ---
Patient Problems: Active and Suspected Problems Renal failure (Acute) ARIANE (acute kidney injury) (Acute) Subjective: Solute is accumulating - Physical Exam Vitals/I&O's: Vital Signs Temp Pulse Resp BP Pulse Ox 100 F H 76 17 123/68 H 100 05/13/19 07:45 05/13/19 07:45 05/13/19 07:45 05/13/19 07:45 05/13/19 07:45 Oxygen Delivery Method [5] Room Air Oxygen Delivery Method [4] Room Air Oxygen Delivery Method [3] Room Air Oxygen Delivery Method [2] Room Air Oxygen Delivery Method [1 ( Room Air Initial Baseline)] Oxygen Delivery Method Room Air Weight: 115.1 kg Body Mass Index (BMI) 36.3 Intake and Output for Last 24 Hours 05/11/19 05/12/19 05/13/19 23:59 23:59 23:59 Intake Total 1280 / 1280 860 / 1460 800 / 800 Output Total 2625 / 2625 1200 / 1380 455 / 455 Balance -1345 / -1345 -340 / 80 345 / 345 General: Alert, Oriented x3, Cooperative HEENT: Atraumatic, PERRLA, EOMI, Normocephalic Neck: Supple, No JVD, Negative Carotid Bruits Lungs: Clear to auscultation, Normal air movement Cardiovascular: Regular rate, No murmurs Abdomen: Bowel Sounds Present, Soft, Non Tender Extremities: No edema, Capillary Refill Less than 3 Seconds Skin: No rashes, No breakdown Musculoskeletal: No Tenderness to Palpation of Joints or Extremities Neurological: Cranial nerves II-XII grossly intact Psych/Mental Status: Normal Affect, Appropriate Laboratory Results 05/12/19 11:45: POC Glucose 170 H 05/12/19 16:44: POC Glucose 175 H 05/12/19 22:06: POC Glucose 186 H 05/13/19 05:33: WBC 7.7, RBC 2.92 L, Hgb 8.3 L, Hct 25.1 L, MCV 86.0, MCH 28.4, MCHC 33.1, RDW Std Deviation 41.4, RDW Coeff of Glen 13.2, Plt Count 175, MPV 11.9, Immature Gran % (Auto) 0.100, Neut % (Auto) 57.2, Lymph % (Auto) 20.9, [place] % (Auto) 11.4 H, Eos % (Auto) 9.7 H, Baso % (Auto) 0.7, Absolute Neuts (auto) 4.4, Absolute Lymphs (auto) 1.60, Nucleated RBC % 0 05/13/19 05:33: Sodium 132 L, Potassium 4.3, Chloride 98, Carbon Dioxide 24.0, Anion Gap 10, BUN 41 H, Creatinine 5.78 H, Estim Creat Clear Calc 15.20, Est GFR (MDRD) Af Amer 13 L, Est GFR (MDRD) Non-Af 11 L, BUN/Creatinine Ratio 7.1 L, Glucose 188 H, Calcium 8.1 L 05/13/19 06:48: POC Glucose 183 H 05/13/19 10:57: POC Glucose 144 H Current Medications Acetaminophen (Tylenol) 650 mg PO Q6H PRN PRN PRN Reason: Pain Score 1-10/Temp > 100.7 F Last Admin: 05/12/19 22:15 Dose: 650 mg Documented by: Amlodipine Besylate (Norvasc) 10 mg PO DAILY [facility] Last Admin: 05/13/19 11:00 Dose: 10 mg Documented by: Bisacodyl (Dulcolax) 10 mg RECTAL DAILY PRN PRN Reason: Constipation Glucagon () 1 mg IM .X1 PRN PRN Reason: Hypoglycemia Hydralazine HCl (Apresoline Iv) 10 mg IV Q4H PRN PRN PRN Reason: SBP > 160 Last Admin: 05/08/19 13:53 Dose: 10 mg Documented by: Dextrose (Dextrose 10%-Water) 250 mls @ 999 mls/hr IV X1 PRN; Protocol PRN Reason: HYPOGLYCEMIA Insulin Glargine (Lantus (Bk)) 10 units SC DAILY [facility] Last Admin: 05/13/19 10:59 Dose: 10 u Documented by: Insulin Human Lispro (Humalog Kwikpen (Bk)) 0 unit SC [facility]; Protocol Last Admin: 05/13/19 11:05 Dose: Not Given Documented by: Labetalol HCl (Trandate) 100 mg PO TID [facility] Last Admin: 05/13/19 06:45 Dose: 100 mg Documented by: Levothyroxine Sodium (Synthroid) 25 mcg PO DAILY@0600 [facility] Last Admin: 05/13/19 06:45 Dose: 25 mcg Documented by: Ondansetron HCl (Zofran) 4 mg IV Q8H PRN PRN PRN Reason: NAUSEA/VOMITING Pantoprazole Sodium (Protonix) 20 mg PO DAILY [facility] Last Admin: 05/13/19 11:00 Dose: 20 mg Documented by: Senna/Docusate Sodium (Senokot-S, Jonna-Colace) 2 tablet PO BID [facility] Last Admin: 05/13/19 11:05 Dose: Not Given Documented by: Sodium Chloride () 10 - 40 ml IV UD PRN PRN Reason: SALINE FLUSH Last Admin: 05/13/19 06:54 Dose: 10 ml Documented by: Medical Necessity - Tobacco Use Smoking Status: Former smoker Assessment/Plan All Active Problems Renal failure (Acute) ARIANE (acute kidney injury) (Acute) ESRD has dialysis catheter Discussed with pathology at [facility]. He has diffuse nodular glomerulosclerosis consistent with diabetic nephropathy. Immunofluorescence is essentially negative. There were some fibrous crescents but in the setting of negative serology, absent immunofluorescence, absent cellular crescents I doubt there is any other process going on. Electron microscopy is pending but I do not think it will change the diagnosis. In summary he has diabetic nephropathy. Has chronic renal failure with no treatable disease. Will be dialysis dependent going forward. Explained to the patient these findings. Explained to him that his options are to continue dialysis and try to get transplant later date. HD again today. Anemia. on erythropoietin as outpatient Hypertension. Blood pressure is acceptable. Right IJ tunneled dialysis catheter in place. HD today Discussed with 7th grade social studies teacher, dialysis unit. Once his dialysis chair time is confirmed, he can be discharged from renal standpoint.
--- NOTE | 2019-05-13 12:16 | DIALYSIS ---
HD x3 hours completed at 1140, stable (3rd) treatment, UF 2000mL, critline ended profile A, accessed via right chest tunneled dialysis catheter, worked well, report to CHARANJIT Gamez
--- NOTE | 2019-05-13 13:01 | PN_ITS ---
Patient Problems: Active and Suspected Problems Renal failure (Acute) ARIANE (acute kidney injury) (Acute) Reason for Visit: Acute kidney injury which essentially proved to be end-stage renal disease diabetic nephropathy Objective: Patient had one-time 100 ?F. Monitor temperature curve. Vitals/I&O's: Vital Signs Temp Pulse Resp BP Pulse Ox 97.8 F 80 20 H 153/82 H 100 05/13/19 11:45 05/13/19 11:45 05/13/19 11:45 05/13/19 11:45 05/13/19 07:45 Oxygen Delivery Method [5] Room Air Oxygen Delivery Method [4] Room Air Oxygen Delivery Method [3] Room Air Oxygen Delivery Method [2] Room Air Oxygen Delivery Method [1 ( Room Air Initial Baseline)] Oxygen Delivery Method Room Air Weight: 253 lb 12.033 oz Body Mass Index (BMI) 36.3 Intake and Output for Last 24 Hours 05/11/19 05/12/19 05/13/19 23:59 23:59 23:59 Intake Total 1280 / 1280 860 / 1460 1160 / 1160 Output Total 2625 / 2625 1200 / 1380 3355 / 3355 Balance -1345 / -1345 -340 / 80 -2195 / -2195 General: Alert, Oriented x3, Cooperative HEENT: Atraumatic, PERRLA, EOMI, Normocephalic Neck: Supple, No JVD, Negative Carotid Bruits Lungs: Clear to auscultation, Normal air movement, No rhonchi, No wheeze, No r ales Cardiovascular: Regular rate, Regular Rhythm, Normal S1, Normal S2, No murmurs Abdomen: Bowel Sounds Present, Soft, Non Tender, Non-Distended Extremities: No edema, Capillary Refill Less than 3 Seconds Skin: No rashes, No breakdown Musculoskeletal: No Tenderness to Palpation of Joints or Extremities, Arthritic Changes Neurological: Cranial nerves II-XII grossly intact, Deep Tendon Reflexes 2+/4 and Symmetrical, Neuro grossly intact Psych/Mental Status: Normal Affect, Appropriate Laboratory Results 05/12/19 11:45: POC Glucose 170 H 05/12/19 16:44: POC Glucose 175 H 05/12/19 22:06: POC Glucose 186 H 05/13/19 05:33: WBC 7.7, RBC 2.92 L, Hgb 8.3 L, Hct 25.1 L, MCV 86.0, MCH 28.4, MCHC 33.1, RDW Std Deviation 41.4, RDW Coeff of Glen 13.2, Plt Count 175, MPV 11.9, Immature Gran % (Auto) 0.100, Neut % (Auto) 57.2, Lymph % (Auto) 20.9, [place] % (Auto) 11.4 H, Eos % (Auto) 9.7 H, Baso % (Auto) 0.7, Absolute Neuts (auto) 4.4, Absolute Lymphs (auto) 1.60, Nucleated RBC % 0 05/13/19 05:33: Sodium 132 L, Potassium 4.3, Chloride 98, Carbon Dioxide 24.0, Anion Gap 10, BUN 41 H, Creatinine 5.78 H, Estim Creat Clear Calc 15.20, Est GFR (MDRD) Af Amer 13 L, Est GFR (MDRD) Non-Af 11 L, BUN/Creatinine Ratio 7.1 L, Glucose 188 H, Calcium 8.1 L 05/13/19 06:48: POC Glucose 183 H 05/13/19 10:57: POC Glucose 144 H Current Medications Acetaminophen (Tylenol) 650 mg PO Q6H PRN PRN PRN Reason: Pain Score 1-10/Temp > 100.7 F Last Admin: 05/12/19 22:15 Dose: 650 mg Documented by: Amlodipine Besylate (Norvasc) 10 mg PO DAILY COUNTS INCLUDE 234 BEDS AT THE [facility] Last Admin: 05/13/19 11:00 Dose: 10 mg Documented by: Bisacodyl (Dulcolax) 10 mg RECTAL DAILY PRN PRN Reason: Constipation Glucagon () 1 mg IM .X1 PRN PRN Reason: Hypoglycemia Hydralazine HCl (Apresoline Iv) 10 mg IV Q4H PRN PRN PRN Reason: SBP > 160 Last Admin: 05/08/19 13:53 Dose: 10 mg Documented by: Dextrose (Dextrose 10%-Water) 250 mls @ 999 mls/hr IV X1 PRN; Protocol PRN Reason: HYPOGLYCEMIA Insulin Glargine (Lantus (Bk)) 10 units SC DAILY COUNTS INCLUDE 234 BEDS AT THE [facility] Last Admin: 05/13/19 10:59 Dose: 10 u Documented by: Insulin Human Lispro (Humalog Kwikpen (Bk)) 0 unit SC [facility]; Protocol Last Admin: 05/13/19 11:05 Dose: Not Given Documented by: Labetalol HCl (Trandate) 100 mg PO TID COUNTS INCLUDE 234 BEDS AT THE [facility] Last Admin: 05/13/19 06:45 Dose: 100 mg Documented by: Levothyroxine Sodium (Synthroid) 25 mcg PO DAILY@0600 COUNTS INCLUDE 234 BEDS AT THE [facility] Last Admin: 05/13/19 06:45 Dose: 25 mcg Documented by: Ondansetron HCl (Zofran) 4 mg IV Q8H PRN PRN PRN Reason: NAUSEA/VOMITING Pantoprazole Sodium (Protonix) 20 mg PO DAILY COUNTS INCLUDE 234 BEDS AT THE [facility] Last Admin: 05/13/19 11:00 Dose: 20 mg Documented by: Senna/Docusate Sodium (Senokot-S, Jonna-Colace) 2 tablet PO BID COUNTS INCLUDE 234 BEDS AT THE [facility] Last Admin: 05/13/19 11:05 Dose: Not Given Documented by: Sodium Chloride () 10 - 40 ml IV UD PRN PRN Reason: SALINE FLUSH Last Admin: 05/13/19 06:54 Dose: 10 ml Documented by: STROKE Vital Signs/Narrative: Vital Signs Temp Pulse Resp BP 05/13/19 11:45 97.8 F 80 20 H 153/82 H Medical Necessity - Tobacco Use Smoking Status: Former smoker Assessment/Plan All Active Problems Renal failure (Acute) ARIANE (acute kidney injury) (Acute) Patient is a 54-year-old gentleman with multiple comorbidities including hypertension diabetes mellitus type 2 admitted with abnormal labs. Patient was found to have creatinine of 6.08. 1. Acute kidney injury/ESRD: No previous creatinine available to compare. This is mostly secondary to diabetic nephropathy. Patient had kidney biopsy and as per director non profit shows diabetic nephropathy. 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 Immunofluorescence is negative. As per nephrology seems patient will be dialysis dependent going forward. Losartan and metformin were discontinued. ?The patient had dialysis on 05/09 2019. Scheduled for dialysis today. As per director non profit he is stable for discharge but patient does not have insurance and needs dialysis set up and another logistic issues treated up before discharge. 05/12: We will stay until we can in order to set up new dialysis as an outpatient. 05/13: Patient is having dialysis today. 2. Diabetes mellitus type 2 with diabetic nephropathy, ?Metformin is discontinued secondary to hypoglycemia and kidney failure. Blood sugars controlled. Glucoses between 130-250 mg/dL. Most recent 88. 05/12: Lantus 10 units subcutaneous daily ordered. 05/13: Blood sugar profile is better. Lantus insulin titrated up. 3. Hypertension ~ blood pressure not optimal. With losartan being held in view of patient impaired kidney function patient was started on amlodipine scheduled in addition to PRN hydralazine. On labetalol 100 mg 3 times daily 4. Hypothyroidism ~patient is on levothyroxine home dose continued 5. Crohn's disease ?Status post right hemicolectomy currently stable 6. Obesity with BMI of 33 ?Weight loss advised 7. DVT prophylaxis ?SC heparin: Patient has apparently been refusing Laboratory Results 05/12/19 11:45: POC Glucose 170 H 05/12/19 16:44: POC Glucose 175 H 05/12/19 22:06: POC Glucose 186 H 05/13/19 05:33: WBC 7.7, RBC 2.92 L, Hgb 8.3 L, Hct 25.1 L, MCV 86.0, MCH 28.4, MCHC 33.1, RDW Std Deviation 41.4, RDW Coeff of [place] 13.2, Plt Count 175, MPV 11.9, Immature Gran % (Auto) 0.100, Neut % (Auto) 57.2, Lymph % (Auto) 20.9, [place] % (Auto) 11.4 H, Eos % (Auto) 9.7 H, Baso % (Auto) 0.7, Absolute Neuts (auto) 4.4, Absolute Lymphs (auto) 1.60, Nucleated RBC % 0 05/13/19 05:33: Sodium 132 L, Potassium 4.3, Chloride 98, Carbon Dioxide 24.0, Anion Gap 10, BUN 41 H, Creatinine 5.78 H, Estim Creat Clear Calc 15.20, Est GFR (MDRD) Af Amer 13 L, Est GFR (MDRD) Non-Af 11 L, BUN/Creatinine Ratio 7.1 L, Glucose 188 H, Calcium 8.1 L 05/13/19 06:48: POC Glucose 183 H 05/13/19 10:57: POC Glucose 144 H Clinical Impression(s) from Imaging Studies Renal Ultrasound 05/06/19 22:35 IMPRESSION: Normal ultrasound of the kidneys and urinary bladder. Cholelithiasis. Biopsy CT 05/09/19 13:27 IMPRESSION: Successful CT guided percutaneous kidney biopsy. Electronically Signed: Kwabena Bryanna, at 10:47 EST , Service support , Chest X-Ray 05/09/19 15:45 IMPRESSION: Right jugular dialysis catheter with tip terminating in the upper to mid SVC. Electronically Signed: Beny Shay MD ([place]) at 16:21 EST , Service support , Brain CT 05/10/19 10:42 IMPRESSION: Normal unenhanced and enhanced CT scan of the brain. Code Visit Inpatient E&M: 62688 Subs Hosp L2
[2019-05-13 13:43] VITALS: BP 140/74; PULSE 84; RESP 16; TEMP 36.9; O2SAT 94
--- NOTE | 2019-05-13 13:57 | EKGRS_ITS ---
Test Reason : CHEST PAIN Blood Pressure : / mmHG Vent. Rate : 085 BPM Atrial Rate : 085 BPM P-R Int : 142 ms QRS Dur : 084 ms QT Int : 408 ms P-R-T Axes : 006 -23 108 degrees QTc Int : 485 ms Normal sinus rhythm Prolonged QT Abnormal ECG When compared with ECG of 06-MAY-2019 20:05, No significant change was found Confirmed by SHAYAN TREADWELL, ALXEIA ([id number]), sound editor ANTONIO SHEPARD ([id number]) on 05/15/2019 9:48:50 AM Referred By: Rodrigo Rouse Confirmed By:ALEXIA DOWNEY MD
--- NOTE | 2019-05-13 15:13 | NURSING ---
Dr. Sauceda notified via text page per request of EKG reading of Normal sinus with prolonged QT and a negative troponin.
[2019-05-13 17:50] LABS: Bedside Glucose 225 mg/dL (70-110)
[2019-05-13 22:00] VITALS: BP 132/74; PULSE 80; RESP 18; TEMP 36.6; O2SAT 97
[2019-05-13] MEDS: Senna/Docusate Sodium 1 Tablet 2 TABLET PO (22:07)
[2019-05-13 22:31] LABS: Bedside Glucose 227 mg/dL (70-110)
[2019-05-13] MEDS: Acetaminophen 325 MG Tablet 650 MG PO (22:31)
[2019-05-14 02:15] VITALS: BP 120/65; PULSE 77; RESP 16; TEMP 36.6; O2SAT 97
[2019-05-14 06:50] VITALS: BP 138/79; PULSE 79; RESP 18; TEMP 36.5; O2SAT 100
[2019-05-14] MEDS: Labetalol 100 MG Tablet PO (06:52)
[2019-05-14] MEDS: Levothyroxine 25 MCG TABLET PO (06:52)
[2019-05-14 07:01] LABS: Bedside Glucose 111 mg/dL (70-110)
--- NOTE | 2019-05-14 09:02 | PCA ---
dialysis called and asked us to send them the recent xray we had taken of patient. Had patient sign an release of medical records and I faxed it to medical records for them to send it to the dialysis nurse
--- NOTE | 2019-05-14 09:39 | CASEMGMT ---
CHARANJIT STRATTON called [facility] and confirmed chair time. Start of care for outpatient HD is 05/15/19 0900. CHARANJIT STRATTON updated patient regarding chair time.
[2019-05-14 10:15] VITALS: BP 132/69; PULSE 76; RESP 16; TEMP 36.4; O2SAT 97
[2019-05-14] MEDS: amLODIPine 10 MG Tablet PO (10:20)
[2019-05-14] MEDS: Pantoprazole Sodium 20 MG Tablet PO (10:20)
[2019-05-14] MEDS: Senna/Docusate Sodium 1 Tablet 2 TABLET PO (10:20)
--- NOTE | 2019-05-14 11:12 | PCM.PN.REN ---
Patient Problems: Active and Suspected Problems Renal failure (Acute) ARIANE (acute kidney injury) (Acute) Subjective: No new complaints - Physical Exam Vitals/I&O's: Vital Signs Temp Pulse Resp BP Pulse Ox 97.7 F L 79 18 138/79 H 100 05/14/19 06:50 05/14/19 06:50 05/14/19 06:50 05/14/19 06:50 05/14/19 06:50 Oxygen Delivery Method [5] Room Air Oxygen Delivery Method [4] Room Air Oxygen Delivery Method [3] Room Air Oxygen Delivery Method [2] Room Air Oxygen Delivery Method [1 ( Room Air Initial Baseline)] Oxygen Delivery Method Room Air Weight: 114.3 kg Body Mass Index (BMI) 36.3 Intake and Output for Last 24 Hours 05/12/19 05/13/19 05/14/19 23:59 23:59 23:59 Intake Total 860 / 1460 1640 / 2160 1020 / 1020 Output Total 1200 / 1380 4355 / 4705 600 / 600 Balance -340 / 80 -2715 / -2545 420 / 420 General: Alert, Oriented x3, Cooperative HEENT: Atraumatic, PERRLA, EOMI, Normocephalic Neck: Supple, No JVD, Negative Carotid Bruits Lungs: Clear to auscultation, Normal air movement Cardiovascular: Regular rate, No murmurs Abdomen: Bowel Sounds Present, Soft, Non Tender Extremities: No edema, Capillary Refill Less than 3 Seconds Skin: No rashes, No breakdown Musculoskeletal: No Tenderness to Palpation of Joints or Extremities Neurological: Cranial nerves II-XII grossly intact Psych/Mental Status: Normal Affect, Appropriate Laboratory Results 05/13/19 14:15: Troponin I < 0.015 05/13/19 16:43: POC Glucose 225 H 05/13/19 22:06: POC Glucose 227 H 05/14/19 06:48: POC Glucose 111 H Current Medications Acetaminophen (Tylenol) 650 mg PO Q6H PRN PRN PRN Reason: Pain Score 1-10/Temp > 100.7 F Last Admin: 05/13/19 22:31 Dose: 650 mg Documented by: Amlodipine Besylate (Norvasc) 10 mg PO DAILY [facility] Last Admin: 05/14/19 10:20 Dose: 10 mg Documented by: Bisacodyl (Dulcolax) 10 mg RECTAL DAILY PRN PRN Reason: Constipation Glucagon () 1 mg IM .X1 PRN PRN Reason: Hypoglycemia Hydralazine HCl (Apresoline Iv) 10 mg IV Q4H PRN PRN PRN Reason: SBP > 160 Last Admin: 05/08/19 13:53 Dose: 10 mg Documented by: Dextrose (Dextrose 10%-Water) 250 mls @ 999 mls/hr IV X1 PRN; Protocol PRN Reason: HYPOGLYCEMIA Insulin Glargine (Lantus ([facility])) 10 units SC BID [facility] Last Admin: 05/14/19 10:21 Dose: Not Given Documented by: Insulin Human Lispro (Humalog Kwikpen ([facility])) 0 unit SC [facility]; Protocol Last Admin: 05/14/19 06:52 Dose: Not Given Documented by: Labetalol HCl (Trandate) 100 mg PO TID [facility] Last Admin: 05/14/19 06:52 Dose: 100 mg Documented by: Levothyroxine Sodium (Synthroid) 25 mcg PO DAILY@0600 [facility] Last Admin: 05/14/19 06:52 Dose: 25 mcg Documented by: Ondansetron HCl (Zofran) 4 mg IV Q8H PRN PRN PRN Reason: NAUSEA/VOMITING Pantoprazole Sodium (Protonix) 20 mg PO DAILY [facility] Last Admin: 05/14/19 10:20 Dose: 20 mg Documented by: Senna/Docusate Sodium (Senokot-S, Jonna-Colace) 2 tablet PO BID [facility] Last Admin: 05/14/19 10:20 Dose: 2 tablet Documented by: Sodium Chloride () 10 - 40 ml IV UD PRN PRN Reason: SALINE FLUSH Last Admin: 05/13/19 22:00 Dose: 10 ml Documented by: Medical Necessity - Tobacco Use Smoking Status: Former smoker Assessment/Plan All Active Problems Renal failure (Acute) ARIANE (acute kidney injury) (Acute) Renal failure, ESRD. He has diffuse nodular glomerulosclerosis consistent with diabetic nephropathy. Immunofluorescence is essentially negative. There were some fibrous crescents but in the setting of negative serology, absent immunofluorescence, absent cellular crescents I doubt there is any other process going on. Electron microscopy is pending but I do not think it will change the diagnosis. In summary he has diabetic nephropathy. Has chronic renal failure with no treatable disease. Will be dialysis dependent going forward. Explained to the patient these findings. Explained to him that his options are to continue dialysis and try to get transplant later date. 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 Due to his insurance situation, options are limited. He has history of extensive Crohn's disease and had a large colon surgery 20 years ago in [place]. Right now he has a midline scar extending from the sternum all the way to the pubic area. Due to this I do not think he can do peritoneal dialysis. I did explain to him briefly about home hemodialysis but the presence of catheter precludes this right now. We will send him to in center dialysis for now with an option of sending to home hemodialysis at a later date. Anemia. Will start erythropoietin as outpatient Hypertension. Blood pressure is acceptable. Right IJ tunneled dialysis catheter in place. Discussed with social worker health services, dialysis unit. Has a confirmed dialysis spot starting tomorrow 9 AM. Can be discharged from renal standpoint. Schedule is different this week due to holiday.
--- NOTE | 2019-05-14 11:29 | PCM.DC ---
- Discharge Diagnoses Current Active Problems: Current Active and Chronic Problems Renal failure (Acute) ARIANE (acute kidney injury) (Acute) You will use the following diet at home:: Calorie/Carbohydrate Controlled (specify 1200, 1400, etc) - 1800 margot Your food should be the consistency of: Regular Your liquids should be the consistency of: Regular/Thin Discharge Activity: Return to Normal Activity Weight Bearing Status: Full weight bearing Instructions: Kidney Biopsy Allergies/Adverse Reactions: Allergies No Known Allergies Allergy (Verified 05/06/19 19:28) Medications to take at Discharge Esomeprazole Magnesium [Nexium 24Hr] 20 mg PO DAILY PRN 05/06/19 Levothyroxine [Synthroid] 25 mcg PO DAILY 05/06/19 Amlodipine [Norvasc] 10 mg PO DAILY #30 tab 05/11/19 Insulin NPH Human Isophane [Humulin N Vial] 10 units SQ BIDAC #1 vial 05/14/19 The following prescriptions were given: Insulin NPH Human Isophane [Humulin N Vial] 10 units SQ BIDAC #1 vial Transmission Status: Pending to [facility] Amlodipine [Norvasc] 10 mg PO DAILY #30 tab Transmission Status: Received by [facility]/pharmacy #[id number] Primary Care Physician: Chuy Lim MD [Primary Care Provider] - Test Results: Test results from this visit will be discussed in further detail at your follow-up appointment, if applicable. Please Follow Up With: [facility] When: Tuesday Please Follow Up With: Marge King NP-C When: 2-3 weeks
[2019-05-14 12:01] LABS: Bedside Glucose 179 mg/dL (70-110)
[2019-05-14 13:05] VITALS: BP 156/78; PULSE 80; RESP 16; TEMP 36.6; O2SAT 96
--- NOTE | 2019-05-17 15:53 | DS.PCM_ITS ---
Discharge Date and Diagnosis Date of Admission: 05/06/19 Date of Discharge: 05/14/19 - Primary Discharge Diagnosis #1 Acute renal failure secondary to diabetic nephropathy from type 2 diabetes- requiring dialysis #2 type 2 diabetes #3 essential hypertension #4 hypothyroidism - Secondary Discharge Diagnosis Chronic Problems Diabetes (Chronic) Chronic renal failure (Chronic) Hypertension (Chronic) Vision problem (Chronic) Crohn's disease (Chronic) Hospital Course and Treatment Operations: - - Insertion of right internal jugular tunneled dialysis catheter Procedures: Dialysis Summary of Care Provided: The patient is a 54 year old M who was seen in the emergency room at [facility] after receiving a call from 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 Patient stated that he had been seeing a physician recently and had not seen a physician in many years, he had been seen by a brewery technician approximately 48 hours prior and had repeat labs drawn which showed acute renal failure. Creatinine from 05/06/2019 was elevated at 6.08, BUN was 58, CBC was unrema rkable. Urinalysis was remarkable for protein and glucose in the urine. Patient was admitted to [place] [address], nephrology was consulted, patient's medications were adjusted, and ultrasound of the patient's kidneys was performed which showed no abnormalities, he underwent a renal biopsy under CT guidance by radiology on 05/09/2019. Patient was seen in consultation by general surgery and a tunneled dialysis catheter was placed on 05/09/2019. Patient underwent dialysis and there were no major complications during his hospital stay. On 05/14/2019, patient was seen and examined: On examination he appeared in good health and spirits. Vital signs as documented. Skin warm and dry and without overt rashes. Neck without JVD. Lungs clear. Heart exam notable for regular rhythm, normal sounds and absence of murmurs, rubs or gallops. Abdomen unremarkable and without evidence of organomegaly, masses, or abdominal aortic enlargement. Extremities nonedematous. Neuro: Cranial nerves II through XII are grossly intact, no focal motor deficits were noted, sensation to light touch and pinprick intact. Psych: Patient is alert and oriented x3, he does not appear anxious or depressed On 05/14/2019, patient was seen and examined and felt to be in stable condition for discharge home - Physical Exam Vitals/I&O's: Vital Signs Temp Pulse Resp BP Pulse Ox 97.8 F 80 16 156/78 H 96 05/14/19 13:05 05/14/19 13:05 05/14/19 13:05 05/14/19 13:05 05/14/19 13:05 Oxygen Delivery Method [5] Room Air Oxygen Delivery Method [4] Room Air Oxygen Delivery Method [3] Room Air Oxygen Delivery Method [2] Room Air Oxygen Delivery Method [1 ( Room Air Initial Baseline)] Oxygen Delivery Method Room Air Weight: 114.3 kg Body Mass Index (BMI) 36.3 Discharge Activity: Return to Normal Activity Weight Bearing Status: Full weight bearing Home Medications: Medications to take at Discharge Esomeprazole Magnesium [Nexium 24Hr] 20 mg PO DAILY PRN 05/06/19 Levothyroxine [Synthroid] 25 mcg PO DAILY 05/06/19 Amlodipine [Norvasc] 10 mg PO DAILY #30 tab 05/11/19 Insulin NPH Human Isophane [Humulin N Vial] 10 units SQ BIDAC #1 vial 05/14/19 Following Prescrptions Were Given to Patient: Insulin NPH Human Isophane [Humulin N Vial] 10 units SQ BIDAC #1 vial Transmission Status: Received by [facility] Amlodipine [Norvasc] 10 mg PO DAILY #30 tab Transmission Status: Received by [facility]/pharmacy #[id number] Primary Care Physician: Chuy Lim MD [Primary Care Provider] - Please Follow Up With: [facility] When: Tuesday Please Follow Up With: Marge King NP-C When: 2-3 weeks Patient Instructions: Kidney Biopsy Disposition: Home Minutes spent on discharge:: 32 Patient Condition:: Stable Medical Necessity - Tobacco Use Smoking Status: Former smoker Meaningful Use Info Meaningful Use Diagnoses (Choose all that apply): None applicable Code Visit Inpatient E&M: 70769 Disch Hosp
== END 2019-05-14 13:58 | disposition home or self-care (01) | DRG 674 ==
LOC: ED 20:47 → MS3 22:00
PROVIDERS: Anesthesiology; Internal Medicine; Surgery; Admitting Provider Hospitalist; Emergency Provider Emergency Medicine; Family Provider Internal Medicine Nephrology; PCP Internal Medicine Nephrology; Referring Provider Hospitalist; Visit Provider Internal Medicine
PROC: 0JH63XZ Insertion of Tunneled Vascular Access Device into Chest Subcutaneous Tissue and Fascia, Percutaneous Approach (ICD-10-PCS; principal; 2019-05-09 14:30)
DX: N17.9 Acute kidney failure, unspecified (principal); I12.0 Hypertensive chronic kidney disease with stage 5 chronic kidney disease or end stage renal disease; K50.90 Crohn's disease, unspecified, without complications; E11.65 Type 2 diabetes mellitus with hyperglycemia; N18.6 End stage renal disease; E03.9 Hypothyroidism, unspecified; E11.319 Type 2 diabetes mellitus with unspecified diabetic retinopathy without macular edema; E66.9 Obesity, unspecified; E11.22 Type 2 diabetes mellitus with diabetic chronic kidney disease; D64.9 Anemia, unspecified; Z99.2 Dependence on renal dialysis; Z68.33 Body mass index [BMI] 33.0-33.9, adult; Z79.4 Long term (current) use of insulin; Z87.891 Personal history of nicotine dependence; Z90.49 Acquired absence of other specified parts of digestive tract
CPT/HCPCS: 36415; 70470; 71045; 76000; 76770; 77012; 80048; 81001; 81050; 82306; 82595; 82784; 82962; 83036; 83520; 83735; 83970; 84100; 84166; 84443; 84484; 85025; 85610; 85730; 86038; 86160; 86225; 86235; 86256; 86334; 86335; 86592; 86703; 86704; 86705; 86706; 86708; 86709; 86803; 87340; 88305; 88313; 88346; 88348; 88350; 90937; 93005; 97802; 97803; 99156; 99157; 99285; J7030; J7040; Q9967; A4216; C1750; G0257

== ENCOUNTER → 2019-07-10 | Outpatient (CLI) | payer MEDICAID, SELFPAY ==
[2019-05-09 07:48] VITALS: BMI 36.3
--- NOTE | 2019-07-10 08:40 | VDUE_ITS ---
Reason For Study: Pre op stesting Right Arm Left Arm Right Cephalic Vein at the wrist measures Left Cephalic Vein at the wrist measures 0.29 x 0.32 cm. 0.31 x 0.34 cm. Right Cephalic Vein in the forearm measures Left Cephalic Vein in the forearm measures 0.31 x 0.35 cm. 0.37 x 0.37 cm. Branch noted at mid forearm measuring 0.26 x Left Cephalic Vein below antecub measures 0.27 cm. 0.36 x 0.37 cm. Right Cephalic Vein below antecub measures Left Cephalic Vein above antecub measures 0.42 x 0.46 cm. 0.51 x 0.49 cm. Right Cephalic Vein above antecub measures Left Cephalic Vein at mid bicep measures 0.44 x 0.44 cm. 0.53 x 0.53 cm. Right Cephalic Vein mid bicep measures 0.44 Left Cephalic Vein at the shoulder measures x 0.46 cm. 0.45 x 0.46 cm. Right Cephalic Vein at the shoulder measures Branch noted at mid forearm measuring 0.25 x 0.41 x 0.42 cm. 0.24 cm. Right Basilic Vein at the origin measures Branch noted above antecube measuring 0.29 x 0.47 x 0.45 cm. 0.30 cm. Right Basilic Vein mid bicep measures 0.60 x Basilic vein at origin measures 0.42 x 0.42 0.60 cm. cm. Right Basilic Vein above antecub measures Basilic vein at bicep measures 0.53 x 0.53 0.53 x 0.53 cm. cm. Right Brachial artery measures 0.41 x 0.43 Basilic vein above antecub measures 0.58 x cm with a velocity of 97.8 cm/sec. 0.60 cm. Right Radial artery measures 0.27 x 0.29 cm Left Brachial artery measures 0.51 x 0.55 cm with a velocity of 84 cm/sec. with a velocity of 69.5 cm/sec. Left Radial artery measures 0.26 x 0.28 with a velocity of 73.4 cm/sec. Interpretation Summary Patent and compressible bilateral upper extremity cephalic and basilic veins with dimensions as noted Adequate diameter and flow bilateral brachial and radial arteries Branches noted left mid forearm and left distal upper arm Ordering Physician: Scott Red Referring Physician: Marge King Performed By: Erika Quintana RVT ?
== END | disposition home or self-care (01) ==
LOC: CVS 08:40
PROVIDERS: PCP Nurse Practitioner Family; Referring Provider Surgery; Visit Provider Surgery
DX: Z01.818 Encounter for other preprocedural examination (principal); N18.9 Chronic kidney disease, unspecified
CPT/HCPCS: 93970

== ENCOUNTER 2019-08-07 07:32 | Day surgery (SDC) | payer MEDICARE, MEDICAID, SELFPAY ==
--- NOTE | 2019-07-13 03:57 | HP_ITS ---
Intake Vital Signs 07/13/19 Height 5 ft 11 in 07/13/19 Weight: 241 lb 07/13/19 BP 132/82 H 07/13/19 Blood Pressure Location Rt brachial 07/13/19 Position Sitting 07/13/19 Respiration 18 07/13/19 Pulse 92 07/13/19 Pulse Source Monitor 07/13/19 Temp 97.8 F 07/13/19 Temp Source Oral 07/13/19 Pulse Oximetry (%) 98 07/13/19 Oxygen Delivery Method room air 07/13/19 BMI 36.3 Intake Visit Reasons: FISTULA PLACEMENT US 07/10 Chief Complaint: Fistula placement Enamel Drier Required: No Is patient in pain?: No Allergies No Known Allergies Allergy (Verified 07/13/19 13:58) Medications Esomeprazole Magnesium [Nexium 24Hr] 20 mg PO DAILY PRN 05/06/19 [History Confirmed 07/13/19] Amlodipine [Norvasc] 10 mg PO DAILY #30 tab 05/11/19 [Rx Confirmed 07/13/19] insulin NPH isoph U-100 human 100 unit/mL subcutaneous suspension 20 unit SC BIDAC vial 07/13/19 [History] levothyroxine 25 mcg tablet 50 mcg PO DAILY tab 07/13/19 [History Confirmed 07/13/19] PFSH Medical History (Updated 07/13/19 @ 15:[address] Scott Red MD) Chronic renal failure, stage 5 (Chronic) Diabetes (Chronic) Chronic renal failure (Chronic) Hypertension (Chronic) Vision problem (Chronic) Crohn's disease (Chronic) Renal failure (Acute) ARIANE (acute kidney injury) (Acute) Surgical History (Updated 07/13/19 @ 13:55 by Luly Nunez) History of right hemicolectomy (Acute) History of tonsillectomy (Acute) Family History (Updated 07/13/19 @ 13:56 by Luly Nunez) Father Diabetes Heart disease Hypertension Social History (Updated 07/13/19 @ 15:[address] Scott Red MD) Smoking Status: Former smoker HPI HPI HPI: ISABELLA ANDERSON is a 54 M who presents to the office today for HPI HPI Surgical H&P: Yes HPI: ISABELLA ANDERSON is a 54 M who presents to the office today for surgical consultation regarding arteriovenous fistula creation. The patient was emergently hospitalized and has right internal jugular tunneled dialysis catheters in place. The patient is now referred by Dr. Lim for an arteriovenous fistula and a written copy of my surgical consult recommendations will be returned to him. The patient is right arm dominant. On July 02, 2019 at the [facility] he had bilateral extremity vein mapping. The patient states that he has had previous abdominal exploration for Crohn's disease but this was remote. [facility] [address] [place] [address] Saphenous Vein Mapping, Bilat 07/10/19 0848 MR#: [id number] Name:ISABELLA ANDERSON Jr.Rep #:[id number] : [id number]:Scott Red MD Attending Dr: MARGE Pedrozatatus: REG CLI Ordering Dr: Scott Red MDDate: 07/10/19 Location:CVSSex: Admitted: Reason For Study: Pre op stesting Right Arm Left Arm Right Cephalic Vein at the wrist measures Left Cephalic Vein at the wrist measures 0.29 x 0.32 cm. 0.31 x 0.34 cm. Right Cephalic Vein in the forearm measures Left Cephalic Vein in the forearm measures 0.31 x 0.35 cm. 0.37 x 0.37 cm. Branch noted at mid forearm measuring 0.26 x Left Cephalic Vein below antecub measures 0.27 cm. 0.36 x 0.37 cm. Right Cephalic Vein below antecub measures Left Cephalic Vein above antecub measures 0.42 x 0.46 cm. 0.51 x 0.49 cm. Right Cephalic Vein above antecub measures Left Cephalic Vein at mid bicep measures 0.44 x 0.44 cm. 0.53 x 0.53 cm. Right Cephalic Vein mid bicep measures 0.44 Left Cephalic Vein at the shoulder measures x 0.46 cm. 0.45 x 0.46 cm. Right Cephalic Vein at the shoulder measures Branch noted at mid forearm measuring 0.25 x 0.41 x 0.42 cm. 0.24 cm. Right Basilic Vein at the origin measures Branch noted above antecube measuring 0.29 x 0.47 x 0.45 cm. 0.30 cm. Right Basilic Vein mid bicep measures 0.60 x Basilic vein at origin measures 0.42 x 0.42 0.60 cm. cm. Right Basilic Vein above antecub measures Basilic vein at bicep measures 0.53 x 0.53 0.53 x 0.53 cm. cm. Right Brachial artery measures 0.41 x 0.43 Basilic vein above antecub measures 0.58 x cm with a velocity of 97.8 cm/sec. 0.60 cm. Right Radial artery measures 0.27 x 0.29 cm Left Brachial artery measures 0.51 x 0.55 cm with a velocity of 84 cm/sec. with a velocity of 69.5 cm/sec. Left Radial artery measures 0.26 x 0.28 with a velocity of 73.4 cm/sec. Interpretation Summary Patent and compressible bilateral upper extremity cephalic and basilic veins with dimensions as noted Adequate diameter and flow bilateral brachial and radial arteries Branches noted left mid forearm and left distal upper arm Ordering Physician: Scott Red Referring Physician: Marge King Performed By: Erika Quintana RVT ? 07/10/19 1141 Date Scott Red MD ROS General General: Yes weight change and fatigue; no appetite, colon cancer, breast cancer or weakness HEENT HEENT: Yes eye surgery; no difficulty swallowing, eye injury, swollen glands or hoarseness Endo Endocrine: Yes thyroid disease and diabetes mellitus; no thyroid cancer, Hair loss, heat intolerance or cold intolerance Skin Skin: No rash or changing moles Breast Breast: No left breast lump, right breast lump, nipple discharge, breast pain, abnormal mammogram, abnormal US or breast enlargement Musc Musculoskeletal: Yes back problems and arthritis; no rheumatoid arthritis, gout or joint pain Cardio Cardiovascular: Yes high blood pressure; no murmur, pacemaker, heart disease, atrial fibrillation, heart attack, heart stent, palpitations, shortness of breat with exertion or chest pain Psych Psychiatric: Yes depression; no anxiety or hearing voices Resp Respiratory: No shortness of breath, No sleep apnea, No cough, No COPD, No asthma, No emphysema, No wheezing Gastro Gastrointestinal: Yes abdominal pain, No nausea or vomiting, No diarrhea, Yes constipation, No blood in stool, Yes acid reflux, No hemorrhoids, No ulcers, No gallbladder problem, No black,tarry stools Jase Hematologic: No blood thinners, No blood disorders, No bleeding, No anemia, No blood clots Neuro Neurologic: No system reviewed and no additional complaints, except as docu, No as per HPI, No abnormal walking, No abnormal hearing, No abnormal movements, No abnormal speech, No behavioral changes, No burning sensations, No confusion, No seizure-like activity, No unsteadiness, No dizziness, No localized weakness, No frequent falls, No headache(s), No lack of coordination, No loss of vision, No memory loss, Yes numbness, No other visual disturbances, No radiating pain, No restless legs, No sensory deficit, No fainting, Yes tingling, No tremor(s), No weakness, No other Exam Const General: cooperative Nutritional Appearance: obese Orientation: alert, awake [facility] Head: normal to inspection Chest Breast Palpation: No nipple discharge Resp Effort & Inspection: normal respiratory effort Auscultation: clear to auscultation bilaterally Cardio Heart Sounds: no murmurs Other: Occasional ectopic beat GI Other: Overweight, not able to detect any internal organs Neuro Other: Patient is aware of his situation in place. He is aware of the reason for the referral. He seems unconvinced that he is in renal failure however. He does state that he goes to dialysis Extrem Other: Left radial pulse 3+. I performed ultrasound inspection of the left cephalic vein of the forearm and it appears that the mid forearm that the vein occludes and then via a side branch feels a separate cephalic vein heading toward the antecubital space. The left upper arm cephalic vein appears to be less complicated although there does appear to be a branch close to the antecubital space Psych Affect: normal affect Assessment & Plan Problems 1. Chronic renal failure, stage 5 N18.5 Plan I have concerns that the side branch in the left mid forearm will inhibit inline flow and cause problems with accessing the fistula as well as fistula maturation. Although there seems to be a small side branch just proximal to the antecubital space the left upper arm cephalic vein would appear to be a better choice. I recommend to the patient a left upper arm brachial to cephalic arteriovenous hemodialysis fistula creation and I have discussed technique, benefit, risk, alternatives. He has had an opportunity to ask and have questions answered. We will schedule and proceed at his discretion. I appreciate the opportunity of assisting with his surgical care. Cc: and Radha King, ASSISTANT SHIFT SUPERVISOR Scott Red M.D., F.A.C.S. Coding Level of Care Code 00869 Diagnoses Chronic renal failure, stage 5 N18.5 07/13/19 1559 <Electronically signed by Scott andrews MD> Date _ Scott Red MD We were notified yesterday that a request is being made to remove the patient's right internal jugular tunneled dialysis catheters and replace new tunneled dialysis catheters at the time of the left upper arm brachiocephalic arteriovenous fistula creation. We will proceed as requested. Scott Red M.D., F.A.C.S.
[2019-07-13 13:56] VITALS: BMI 33.6
--- NOTE | 2019-08-03 12:41 | EKG12_ITS ---
Test Reason : PREOP Blood Pressure : / mmHG Vent. Rate : 086 BPM Atrial Rate : 086 BPM P-R Int : 128 ms QRS Dur : 078 ms QT Int : 426 ms P-R-T Axes : 015 -25 050 degrees QTc Int : 509 ms Normal sinus rhythm Prolonged QT Abnormal ECG Confirmed by LEIF TREADWELL, JOSE DANIEL ([id number]), photographic editor MARIANELA OROURKE ([id number]) on 08/06/2019 1:06:16 PM Referred By: Scott Red Confirmed By:CLEMENCIA YADAV MD
[2019-08-03 13:55] LABS: Hematocrit 38.6 % (40-54); Hemoglobin 12.7 g/dL (13.0-16.5); Mean Corp Hgb Conc 32.9 g/dL (32-36); Mean Corpuscular Hgb 28.6 pg (27.0-32.0); Mean Corpuscular Volume 86.9 fL (80-94); Mean Platelet Vol. 10.7 fl (6.2-12.0); Platelet Count 244 K/mm3 (150-450); RBC Distribution Width CV 13.8 % (11.6-14.6); RBC Distribution Width SD 43.8 fl (35.1-43.9); Red Blood Count 4.44 M/mm3 (4.6-6.2); White Blood Count 9.1 K/mm3 (4.4-11.0)
[2019-08-03 14:20] LABS: Anion Gap 9 (5-15); BUN 18 mg/dL (7-18); Calcium,Total 8.2 mg/dL (8.5-10.1); Chloride 99 mmol/L (98-107); Creatinine, Serum 2.99 mg/dL (0.70-1.30); EST Glomerular Filtration Rate 23 mL/min (>60); Est Glom Filt Rate - Afr Amer 28 mL/min (>60); Glucose 202 mg/dL (74-106); Potassium 3.6 mmol/L (3.5-5.1); Sodium Level 138 mmol/L (136-145)
[2019-08-07] VITALS (7 sets, daily range): BP systolic 131–173; BP diastolic 79–90; PULSE 74–80; RESP 16–18; TEMP 36–36.4; O2SAT 95–100; BMI 33.1
[2019-08-07] MEDS: 0.45% Normal Saline 1,000 ML 30 ML IV (08:43)
[2019-08-07 08:56] LABS: Bedside Glucose 222 mg/dL (70-110)
--- NOTE | 2019-08-07 09:28 | RAD_ITS ---
STUDY: X-RAY CHEST REASON FOR EXAM: Male, 54 years old. dialysis catheter exchange TECHNIQUE: Single AP portable view of the chest. COMPARISON: 05/09/2019 FINDINGS: Lungs are moderately hypoinflated. Mild cardiomegaly. Left subclavian central venous catheter with tip in the upper SVC. No acute airspace disease. Mild bibasilar atelectasis. Right subclavian central venous catheter has been removed. No pneumothorax RAD/CXR for Line Placement IMPRESSION: No acute findings. No pneumothorax. Placement of left subclavian central venous catheter with removal of right catheter Electronically Signed: Carlos Lane DO at 13:00 EDT Tel , Service support ,
--- NOTE | 2019-08-07 09:31 | DCINST_ITS ---
Discharge Diet: Renal Diet Discharge Activity: May Not Drive, May Not Shower Lifting Restrictions: 5 pounds Keep extremity elevated above heart level: - - Keep arm elevated above the heart level for 3 days. Additional Activity Instructions:: Exercise hand vigorously with a stress ball. Call your doctor if your incision/area has: Continuous Slow Oozing, Sudden Increased Bleeding - apply pressure and call your doctor., Increased Pain/ Swelling, Increased Redness, Foul Smelling Discharge Call your doctor if you observe: Fever of 101 or Higher Suture Line Care: Avoid Pulling/Pushing, Avoid Pinching/Bending Cleanse incision/area with: Keep Dressing Clean & Dry Additional Dressing/Incision Instructions:: The dialysis center will change the dialysis catheter dressings. You may remove your left arm dressing in 2 days. Leave the Steri-Strips on for 1 week Allergies/Adverse Reactions: Allergies No Known Allergies Allergy (Verified 08/07/19 08:24) Medications to take at Discharge Esomeprazole Magnesium [Nexium 24Hr] 20 mg PO DAILY PRN 05/06/19 Amlodipine [Norvasc] 10 mg PO DAILY #30 tab 05/11/19 insulin NPH isoph U-100 human 100 unit/mL subcutaneous suspension 20 unit SC BIDAC vial 07/13/19 levothyroxine 25 mcg tablet 50 mcg PO DAILY tab 07/13/19 Hydrocodone Bitart/Apap 5-325 [[place] 5MG-325MG] 1 tablet PO Q6H PRN PRN 2 Days #5 tablet 08/07/19 The following prescriptions were given: Hydrocodone Bitart/Apap 5-325 [[place] 5MG-325MG] 1 tablet PO Q6H PRN PRN 2 Days #5 tablet PRN Reason: Pain Transmission Status: Sent to [facility] Primary Care Physician: Chuy Lim MD [Primary Care Provider] - Test Results: Test results from this visit will be discussed in further detail at your follow- up appointment, if applicable. Please Follow Up With: Scott Red MD - [phone] When: Call to make an appointment for suture removal and follow up in 10 days
--- NOTE | 2019-08-07 11:50 | PCM.OPRPT ---
Problem List (1) Problem with dialysis access Status: Acute Qualifiers: Encounter type: initial encounter Qualified Code(s): T82.898A - Other specified complication of vascular prosthetic devices, implants and grafts, initial encounter (2) Chronic renal failure, stage 5 Status: Chronic Report of Operation Date of Procedure: 08/07/19 Pre-Operative Diagnosis: Problem with dialysis access malfunctioning right internal jugular tunneled dialysis catheter. Stage V chronic renal insufficiency in need of short and long-term dialysis access Post-Operative Diagnosis: Same Surgery/Procedure Performed:: Removal right internal jugular tunneled dialysis catheter. Placement left internal jugular 23 cm pre-curved palindrome dialysis catheter. Left upper arm brachial to cephalic arteriovenous fistula creation Description of Surgical Findings:: Timeout and informed consent was obtained. 54-year-old gentleman was taken to the operating room placed upon the table. His neck chest and left upper extremity sterilely prepped and draped. Under ultrasound guidance 1% lidocaine mixed 50-50 with 0.5% Marcaine was used as a local anesthetic. A total of 35 cc was used throughout the entire procedure. Local was instilled under ultrasound guidance and a micropuncture needle was inserted in the left internal jugular vein followed by Seldinger wire advancement. Local was instilled down upon the left chest wall exit site was created the 23 cm pre-curved palindrome catheter was tunneled from the chest to the neck site. 035 J-wire was placed through the micropuncture sheath. Serial dilatation was performed guided by fluoroscopy. Sheath dilator was inserted. The 23 cm cath was inserted to maximum length. Fluoroscopy demonstrated that it seemed to lay in position the brachiocephalic right at the junction of the SVC but it was already had inserted to full length. It aspirated easily. It was flushed with saline and then 2 cc per channel with heparinized saline. The neck site was closed interrupted 5-0 Vicryl subdermal stitch Steri-Strip Telfa OpSite. The catheter was secured skin with interrupted 3-0 nylon silver impregnated dressing and OpSite dressing applied. Attention was drawn to the left upper arm. Ultrasound mapping of the cephalic vein in the distal upper arm was identified. Local was instilled and oblique incision was created sharp blunt dissection was used as high cephalic vein it was dissected free for approximately 8 cm. Side branches were dissected free they were ligated with hemoclips. The main channel was preserved. Subsequently sharp and blunt dissection was used to identify the brachial artery circumferential control was obtained. The patient then received 8000 units of heparin. Peripheral vascular clamps were placed on the brachial artery 11 blade was used to make an arteriotomy which was extended with Mack scissors. The vein was ligated distally with hemoclips. The vein was then placed in end-to-side fashion to the brachial artery with a running 7-0 Prolene. At the completion there is good pulsatile flow. At the multi branching component of the cephalic vein there was some relative narrowing however I felt that this was going to mature nicely and would allow the the longus possible length of vein available. There was a good pulse thrill and bruit. That wound was closed with deep layers of interrupted 3-0 Vicryl and then a running septic or 4-0 Monocryl. Steri-Strips Telfa OpSite dressing applied. There was a 2+ radial pulse. Finally local was instilled at the right chest catheter site at the exit site. An incision was created. Sharp and blunt dissection was used to identify the cuff and it was dissected free. With direct pressure held upon the tubing and the tunnel the catheter was removed intact. Direct pressure was held the tract was massaged and then a pressure dressing applied. Sponge and instrument and needle counts were reported the surgeon be correct. Blood loss throughout the procedure 150 cc. He was taken to the recovery area in satisfactory edition without apparent complication. Specimens none. Drains none. Blood loss 150 cc. Stat portable chest x-ray is pending. Scott Red M.D., F.A.C.S. Type of Anesthesia:: Local MAC Anesthesiologist: Marc Cole
[2019-08-07] MEDS: Acetaminophen 325 MG Tablet 650 MG PO (13:28)
== END 2019-08-07 13:43 | disposition home or self-care (01) ==
LOC: SDC 07:33 → AC 07:34
PROVIDERS: PCP Internal Medicine Nephrology; Referring Provider Surgery; Visit Provider Surgery
PROC: (CPT 36589; principal; 2019-08-07 09:15)
DX: T82.898A Other specified complication of vascular prosthetic devices, implants and grafts, initial encounter (principal); I12.0 Hypertensive chronic kidney disease with stage 5 chronic kidney disease or end stage renal disease; E11.22 Type 2 diabetes mellitus with diabetic chronic kidney disease; N18.5 Chronic kidney disease, stage 5; E66.9 Obesity, unspecified; K21.9 Gastro-esophageal reflux disease without esophagitis; E06.9 Thyroiditis, unspecified; Z68.36 Body mass index [BMI] 36.0-36.9, adult; Z99.2 Dependence on renal dialysis; Z79.4 Long term (current) use of insulin; Z79.899 Other long term (current) drug therapy; Z87.891 Personal history of nicotine dependence
CPT/HCPCS: 01844; 36589; 36825; 36415; 71045; 76000; 80048; 82962; 85027; 93005

== ENCOUNTER 2020-03-07 07:42 | Day surgery (SDC) | payer MEDICARE, MEDICAID, SELFPAY ==
[2020-02-29 08:24] VITALS: BMI 33.1
[2020-03-07] VITALS (7 sets, daily range): BP systolic 128–155; BP diastolic 54–76; PULSE 79–86; RESP 16–18; TEMP 36.1–36.3; O2SAT 97–98; BMI 34.0
--- NOTE | 2020-03-07 08:05 | PCM.HP.BLA ---
Problem List (1) Screening for intestinal cancer Status: Acute History and Physical Date of Admission: 03/07/20 Intake Visit Reasons: CSCOPE Chief Complaint: c-scope consult Conveyor Installer Required: No Is patient in pain?: No Allergies No Known Allergies Allergy (Verified 02/29/20 08:24) Medications Esomeprazole Magnesium [Nexium 24Hr] 20 mg PO DAILY PRN 05/06/19 [History Confirmed 02/29/20] Amlodipine [Norvasc] 10 mg PO DAILY #30 tab 05/11/19 [Rx Confirmed 02/29/20] insulin NPH isoph U-100 human 100 unit/mL subcutaneous suspension 20 unit SC BIDAC vial 07/13/19 [History Confirmed 02/29/20] levothyroxine 25 mcg tablet 50 mcg PO DAILY tab 07/13/19 [History Confirmed 02/29/20] [facility] Medical History Arterial steal syndrome (Acute) Chronic renal failure, stage 5 (Chronic) Diabetes (Chronic) Chronic renal failure (Chronic) Hypertension (Chronic) Vision problem (Chronic) Crohn's disease (Chronic) Renal failure (Acute) ARIANE (acute kidney injury) (Acute) Surgical History History of right hemicolectomy (Acute) History of tonsillectomy (Acute) Family History Father Diabetes Heart disease Hypertension Social History (Updated 02/29/20 @ 08:[address] Scott Red MD) Smoking Status: Former smoker HPI HPI HPI: ISABELLA ANDERSON, is a 55 M who presents to the office today for surgical consultation regarding a colonoscopy. The patient states that [facility] is preparing him to be on the renal transplant list. He needs to have a colonoscopy completed. Claims that his previous one was about 10 years ago. Family history negative for colon cancer. His personal history is notable for Crohn's disease. He claims he has had a right hemicolectomy as well as problems with perirectal abscesses. He claims that all of those problems however resolved. Claims that he is not on any chronic medications nor does he see any gastroenterology specialist regarding that process. The most recent documentation I have is October 25, 2010 when he was hospitalized in [facility] at [facility] with perirectal abscesses as the patient had taken him self off Remicade at that time. Also additionally have evidence of right hemicolectomy with excision of 2 enterocolonic fistula with surgery date August 13, 2005 at the same hospital in [place]. The patient denies any current bright red blood per rectum or melena. He does complain that he feels the dialysis center dries him out too much and then he becomes severely constipated. He claims that he takes a pharmacy provided laxative that helps him with this but he does not recall the name of that product. He is being successfully dialyzed via a left upper arm brachial cephalic arteriovenous hemodialysis fistula which I created for him on August 07, 2019 HPI HPI HPI: ISABELLA ANDERSON, is a 55 M who presents to the office today for ROS General General: Yes weight change and fatigue; no appetite, colon cancer, breast cancer or weakness HEENT HEENT: Yes eye surgery; no difficulty swallowing, eye injury, swollen glands or hoarseness Endo Endocrine: Yes thyroid disease and diabetes mellitus; no thyroid cancer, Hair loss, heat intolerance or cold intolerance Skin Skin: No rash or changing moles Breast Breast: No left breast lump, right breast lump, nipple discharge, breast pain, abnormal mammogram, abnormal US or breast enlargement Musc Musculoskeletal: Yes back problems and arthritis; no rheumatoid arthritis, gout or joint pain Cardio Cardiovascular: Yes high blood pressure; no murmur, pacemaker, heart disease, atrial fibrillation, heart attack, heart stent, palpitations, shortness of breat with exertion or chest pain Psych Psychiatric: Yes depression; no anxiety or hearing voices Resp Respiratory: No shortness of breath, No sleep apnea, No cough, No COPD, No asthma, No emphysema, No wheezing Gastro Gastrointestinal: Yes abdominal pain, No nausea or vomiting, No diarrhea, Yes constipation, No blood in stool, Yes acid reflux, No hemorrhoids, No ulcers, No gallbladder problem, No black,tarry stools Jase Hematologic: No blood thinners, No blood disorders, No bleeding, No anemia, No blood clots Neuro Neurologic: No weakness Exam Const General: cooperative, comfortable, no acute distress Nutritional Appearance: obese Orientation: alert, awake [facility] Head: normal to inspection Chest Breast Palpation: No nipple discharge Resp Effort & Inspection: normal respiratory effort Auscultation: clear to auscultation bilaterally Cardio Rate: regular rate Rhythm: regular rhythm Heart Sounds: no murmurs GI Palpation: soft, no hepatosplenomegaly Auscultation: normal bowel sounds Skin General: no rashes or lesions noted Extrem Other: Left upper arm brachiocephalic arteriovenous hemodialysis fistula with wonderful pulse thrill and bruit Psych Affect: normal affect Assessment & Plan Problems 1. Crohn's disease of both small and large intestine without complication K50.80 Plan Patient with a previous history of Crohn's disease not currently on any therapy. He is being referred as part of his work-up for renal transplant. I discussed with him technique, benefit, risk and alternatives. Of a colonoscopy with possible biopsy and polypectomy if indicated. He will take his own product 2 days prior to the colonoscopy and then he will be prescribed a MiraLAX bowel prep for 1 day prior to the colonoscopy. We will use monitored anesthesia care. He has had an opportunity to ask and have questions answered. His renal transplant center is at [facility]. Copy: Radha King, AMBROSIO Red M.D., F.A.C.S. Coding Level of Care Code Off vis,est,level 3 Diagnoses Crohn's disease of both small and large intestine without complication K50.80 ??Gastrointestinal tract location: small and large intestine ??Digestive disease complication type: without complication I have re-examined the patient. There are no clinical changes since date of exam. Procedure Criteria Procedure Type: Elective COVID Risk Discussion: The surgeon/proceduralist and patient have discussed in detail the risk of exposure to and/or potential harm posed by the COVID-19 virus with having a surgery/procedure at this time versus the risk of delaying the surgery/procedure. It is not possible to know either the risk of delaying the surgery or procedure or chance of getting an infection with perfect accuracy, but a joint decision was made between the patient and the surgeon/proceduralist to proceed at this time with the scheduled surgery/procedure as indicated on the consent form.
[2020-03-07] MEDS: Lactated Ringers 1,000 ML 100 ML IV (08:24)
--- NOTE | 2020-03-07 09:00 | COLBX_PTH ---
PATIENT: ISABELLA ANDERSON Jr. LOC: EN U#:[id number] AGE/SX: 55/M ROOM: RE03/07/[address]: Dr. Scott Red MD : 1965 BED: DIS: 03/07/2020 SPEC #: [id number] RECD: 03/07/20 11:18 STATUS: DORINDA REDon #: [id number] RINKU: 03/07/20 09:[address]: Scott Red DEPT: SURGICAL PATHOLOGY RECD BY: Raghavendra Tan ENTERED: 03/07/20 12:46 SP TYPE: COLON BX OTHR DR: Marge King, [employer]-C Tissues: A - Ileum, NOS B - COLON BIOPSY C - Transverse colon D - Descending colon Procedures: Surgery Specimen Level IV HEADER OPERATION: Colonoscopy (MAC) PRE-OP DIAGNOSIS: Screening TISSUE SUBMITTED: A - Ileocolonic anastomosis biopsy, B - Random colonic biopsy, C - Mid transverse biopsy, D - Descending polyp MICROSCOPIC DIAGNOSIS A. Ileocolonic anastomosis, biopsy: Fragments of colonic and small intestinal mucosa, no pathologic diagnosis. B. Colon, random biopsy: Fragments of colonic mucosa, no pathologic diagnosis. C. Mid transverse colon polyp, biopsy: Fragments of tubular adenoma. Fragments of fecal material. D. Descending colon polyp, biopsy: Tubular adenoma. Fragments of fecal material. SJ:hemant 03/10/20 MICROSCOPIC DESCRIPTION Slides are reviewed. GROSS DESCRIPTION A - Received in fixative is one container labeled with the patient's name and designated ileocecal anastomosis. The specimen consists of multiple irregular fragments of light negrete soft tissue that in aggregate measure 1 x 0.5 x 0.1 cm. The specimen is totally submitted in one cassette. B - Received in fixative is one container labeled with the patient's name and designated random colon biopsy. The specimen consists of multiple irregular fragments of light negrete soft tissue that in aggregate measure 2 x 1.5 x 0.1 cm. The specimen is totally submitted in one cassette. C - Received in fixative is one container labeled with the patient's name and designated mid transverse polyp. The specimen consists of multiple irregular fragments of light negrete soft tissue that in aggregate measure 2 x 1 x 0.1 cm. The specimen is totally submitted in one cassette. D - Received in fixative is one container labeled with the patient's name and designated descending polyp. The specimen consists of multiple irregular fragments of light negrete soft tissue that in aggregate measure 1.7 x 0.8 x 0.2 cm. The specimen is totally submitted in one cassette. / AM:hemant 03/07/20 TC:1 CPT: 22125 x4
--- NOTE | 2020-03-07 09:32 | OP.COLON_ITS ---
Patient Name: Mick Villa Procedure Date: 03/07/2020 8:46 AM Date of : 1965 Age: 55 Procedure: Colonoscopy Indications: Screening for colorectal malignant neoplasm Providers: Scott Red MD Referring MD: Scott Red MD Medicines: See the Anesthesia note for documentation of the administered medications Patient Profile: Last Colonoscopy: none. The patient's first colonoscopy is today. Complications: No immediate complications. Procedure: Pre-Anesthesia Assessment: - Prior to the procedure, a History and Physical was performed, and patient medications and allergies were reviewed. The patient's tolerance of previous anesthesia was also reviewed. The risks and benefits of the procedure and the sedation options and risks were discussed with the patient. All questions were answered, and informed consent was obtained. Prior Anticoagulants: The patient has taken no previous anticoagulant or antiplatelet agents. ASA Grade Assessment: III - A patient with severe systemic disease. After reviewing the risks and benefits, the patient was deemed in satisfactory condition to undergo the procedure. After I obtained informed consent, the scope was passed under direct vision. Throughout the procedure, the patient's blood pressure, pulse, and oxygen saturations were monitored continuously. The colonoscope was introduced through the anus and advanced to the ileocolonic anastomosis. The colonoscopy was performed without difficulty. The patient tolerated the procedure well. The quality of the bowel preparation was fair. Scope In: 8:56:13 AM Scope Withdrawal Time 0 hours 22 minutes 22 seconds Scope Out: 9:23:50 AM Total Procedure Duration Time 0 hours 27 minutes 37 seconds Findings: The perianal exam findings include non-thrombosed external hemorrhoids, non-thrombosed internal hemorrhoids and internal hemorrhoids that prolapse with straining, but spontaneously regress to the resting position (Grade II). There was evidence of a prior functional end-to-end ileo-colonic anastomosis in the mid ascending colon. This was patent and was characterized by healthy appearing mucosa. Biopsies were taken with a cold forceps for histology. A 6 mm polyp was found in the mid transverse colon. The polyp was sessile. The polyp was removed with a hot snare. Resection and retrieval were complete. A 8 mm polyp was found in the descending colon. The polyp was sessile. The polyp was removed with a hot snare. Resection and retrieval were complete. To prevent bleeding post-intervention, one hemostatic clip was successfully placed. There was no bleeding at the end of the procedure. Biopsies for histology were taken with a cold forceps from the entire colon for evaluation of microscopic colitis. Scattered diverticula were found in the sigmoid colon. Impression: - Preparation of the colon was fair. - Non-thrombosed external hemorrhoids, non-thrombosed internal hemorrhoids and internal hemorrhoids that prolapse with straining, but spontaneously regress to the resting position (Grade II) found on perianal exam. - Patent functional end-to-end ileo-colonic anastomosis, characterized by healthy appearing mucosa. Biopsied. - One 6 mm polyp in the mid transverse colon, removed with a hot snare. Resected and retrieved. - One 8 mm polyp in the descending colon, removed with a hot snare. Resected and retrieved. Clip was placed. Biopsied. - Diverticulosis in the sigmoid colon. Recommendation: - Discharge patient to home. - Resume previous diet. - Continue present medications. - Repeat colonoscopy in 5 years for surveillance. - Telephone my office for pathology results in 1 week. Procedure Code(s): --- Professional --- 13118, Colonoscopy, flexible; with removal of tumor(s), polyp(s), or other lesion(s) by snare technique 58724, 59, Colonoscopy, flexible; with biopsy, single or multiple Diagnosis Code(s): --- Professional --- Z12.11, Encounter for screening for malignant neoplasm of colon K64.1, Second degree hemorrhoids K64.4, Residual hemorrhoidal skin tags Z98.0, Intestinal bypass and anastomosis status D12.3, Benign neoplasm of transverse colon (hepatic flexure or splenic flexure) D12.4, Benign neoplasm of descending colon K57.30, Diverticulosis of large intestine without perforation or abscess without bleeding CPT copyright 2017 [employer]. All rights reserved. The codes documented in this report are preliminary and upon retail coverage merchandiser lead review may be revised to meet current compliance requirements. Scott Red MD 03/07/2020 9:32:12 AM This report has been signed electronically. Number of Addenda: 0 Note Initiated On: 03/07/2020 8:46 AM
--- NOTE | 2020-03-07 09:33 | OP.CCLET_ITS ---
03/07/2020 Kirk Mike Re : Colonoscopy procedure for Mick Villa Dear Fernando This procedure was performed on Saturday, March 07, 2020. My impressions and recommendations are as follows: Impressions : - Preparation of the colon was fair. - Non-thrombosed external hemorrhoids, non-thrombosed internal hemorrhoids and internal hemorrhoids that prolapse with straining, but spontaneously regress to the resting position (Grade II) found on perianal exam. - Patent functional end-to-end ileo-colonic anastomosis, characterized by healthy appearing mucosa. Biopsied. - One 6 mm polyp in the mid transverse colon, removed with a hot snare. Resected and retrieved. - One 8 mm polyp in the descending colon, removed with a hot snare. Resected and retrieved. Clip was placed. Biopsied. - Diverticulosis in the sigmoid colon. Recommendations : - Discharge patient to home. - Resume previous diet. - Continue present medications. - Repeat colonoscopy in 5 years for surveillance. - Telephone my office for pathology results in 1 week. My findings are described in the full procedure note, which is enclosed. If I can be of further assistance, please feel free to contact me at Doctor phone number(s): Work: . Sincerely, Scott Red MD 03/07/2020 9:32:12 AM This report has been signed electronically.
[2020-03-07 09:41] LABS: Bedside Glucose 182 mg/dL (70-110)
== END 2020-03-07 10:11 | disposition home or self-care (01) ==
LOC: EN 07:43 → AC 07:44
PROVIDERS: Anesthesiology; PCP Nurse Practitioner Family; Referring Provider Surgery; Visit Provider Surgery
PROC: 0DJD8ZZ Inspection of Lower Intestinal Tract, Via Natural or Artificial Opening Endoscopic (ICD-10-PCS; CPT 45378; principal; 2020-03-07 08:55)
DX: Z12.11 Encounter for screening for malignant neoplasm of colon (principal); D12.4 Benign neoplasm of descending colon; D12.3 Benign neoplasm of transverse colon; K57.30 Diverticulosis of large intestine without perforation or abscess without bleeding; K64.1 Second degree hemorrhoids; K50.80 Crohn's disease of both small and large intestine without complications; I12.0 Hypertensive chronic kidney disease with stage 5 chronic kidney disease or end stage renal disease; E11.22 Type 2 diabetes mellitus with diabetic chronic kidney disease; N18.5 Chronic kidney disease, stage 5; Z87.891 Personal history of nicotine dependence; Z99.2 Dependence on renal dialysis; Z20.828 Contact with and (suspected) exposure to other viral communicable diseases; Z79.4 Long term (current) use of insulin; Z79.899 Other long term (current) drug therapy
CPT/HCPCS: 45380; 82962; 87635; 88305; C9803; J7120; J1610; J2405; U0003

== ENCOUNTER 2020-03-23 13:19 | Emergency (ER) | payer MEDICARE, MEDICAID, SELFPAY ==
[2020-03-07 08:17] VITALS: BMI 34.0
[2020-03-23 13:20] VITALS: BP 185/91; PULSE 88; RESP 17; TEMP 35.6; O2SAT 100; BMI 32.8
--- NOTE | 2020-03-23 13:47 | RAD_ITS ---
STUDY: X-RAY - LUMBAR SPINE REASON FOR EXAM: Male, 55 years old. Fall, lower back pain. TECHNIQUE: 3 view(s) of the lumbar spine were obtained. COMPARISON: None FINDINGS: Normal lumbar lordosis. There is no substantial scoliosis. There is a normal alignment of the vertebrae. There is transitional anatomy of S1. There is multilevel endplate spondylosis of the lumbar vertebrae. Normal disc space heights. There is no demonstrated fracture. Moderate facet arthropathy noted. The soft tissue structures are unremarkable. Endoscopic metallic device projects over the sigmoid colon. RAD/Lumbar Spine 2 or 3 Views IMPRESSION: 1. No compression fracture. 2. Degenerative changes. Electronically Signed: Beny Shay MD ([place]) at 15:08 EST , Service support ,
--- NOTE | 2020-03-23 13:47 | CT_ITS ---
STUDY: CT BRAIN WITHOUT CONTRAST REASON FOR EXAM: Male, 55 years old. FALL, HIT BACK OF HEAD RADIATION DOSAGE (If Supplied By Facility): CTDIvol = ( 44.99 ) mGy, DLP = ( 88.47 ) mGycm TECHNIQUE: Transaxial CT imaging of the brain was performed without administration of intravenous contrast material. Individualized dose optimization techniques were used for this CT. COMPARISON: No relevant priors. FINDINGS: There is soft tissue swelling in the posterior scalp. Normal calvarium. Normal size ventricles and extra-axial spaces for the patient''s age. Normal white matter tracts of the cerebral hemispheres. Normal basal ganglia and thalami. Normal brainstem. Normal cerebellum. There is no intracranial hemorrhage. There are no findings of an acute ischemic infarction. Normal visualized paranasal sinuses. CT/Brain/Head without Contrast IMPRESSION: 1. No acute intracranial hemorrhage or mass effect. 2. Posterior scalp soft tissue swelling/contusion. Electronically Signed: Beny Shay MD ([place]) at 14:36 EST , Service support ,
--- NOTE | 2020-03-23 13:47 | RAD_ITS ---
STUDY: X-RAY - PELVIS AND LEFT HIP REASON FOR EXAM: Male, 55 years old. Fall, left hip pain. TECHNIQUE: 3 views of the pelvis and hip. COMPARISON: None. FINDINGS: There is a non-specific bowel gas pattern. Normal visualized soft tissue structures. There are atherosclerotic vascular calcifications. Normal bilateral iliac wings, sacroiliac joints and visualized sacrum. Normal bilateral superior and inferior pubic rami. Normal pubic symphysis. Normal bilateral ischial tuberosities. Metallic density projects over the left iliac crest may represent a an endoscopic surgical clip. There are degenerative changes of the right hip. There are osteoarthritic changes of the femoral head with marginal osteophyte formation. There is osteoarthritic spur formation of the acetabular rim. There is moderate articular joint space narrowing of the hip. RAD/HIP, UNI W/ Pelvis 2-3 Views IMPRESSION: No fracture demonstrated. Electronically Signed: Beny Shay MD ([place]) at 15:06 EST , Service support ,
--- NOTE | 2020-03-23 13:47 | CT_ITS ---
STUDY: CT CERVICAL SPINE WITHOUT CONTRAST REASON FOR EXAM: Male, 55 years old. FALL, HIT BACK OF HEAD RADIATION DOSAGE (If Supplied By Facility): CTDIvol = ( 32.58 ) mGy, DLP = ( 717.99 ) mGycm TECHNIQUE: High resolution transaxial imaging was performed without contrast material. Sagittal and coronal images were reconstructed. Individualized dose optimization techniques were used for this CT. COMPARISON: None FINDINGS: Normal craniovertebral junction. Normal anterior atlantoaxial articulation. Normal odontoid process. Normal cervical lordosis. Normal vertebral bodies and posterior osseous elements. C2-3: Normal endplates. Normal disc height and morphology. Normal central canal and intervertebral neuroforamina. C3-4: Normal endplates. Normal disc height and morphology. Normal central canal and intervertebral neuroforamina. C4-5: Normal endplates. Normal disc height and morphology. Normal central canal and intervertebral neuroforamina. Bilateral facet arthropathy. C5-6: Anterior spondylosis. Normal disc height and morphology. Normal central canal and intervertebral neuroforamina. Bilateral facet arthropathy. C6-7: Anterior spondylosis. Normal disc height and morphology. Normal central canal and intervertebral neuroforamina. Bilateral facet arthropathy. C7-T1: Normal endplates. Normal disc height and morphology. Normal central canal and intervertebral neuroforamina. Normal visualized soft tissue structures. There is ossification of the posterior soft tissues. Mild soft tissue swelling of the superficial posterior neck. CT/Spine Cervical without Contras IMPRESSION: 1. No cervical spine fracture or traumatic subluxation. 2. Mild posterior posterior neck soft tissue swelling. Electronically Signed: Beny Shay MD ([place]) at 15:15 EST , Service support ,
--- NOTE | 2020-03-23 13:48 | CT_ITS ---
STUDY: CT FACIAL BONES WITHOUT CONTRAST REASON FOR EXAM: Male, 55 years old. FALL, HIT BACK OF HEAD RADIATION DOSAGE (If Supplied By Facility): CTDIvol = ( 29.38 ) mGy, DLP = ( 701.72 ) mGycm TECHNIQUE: The patient was scanned in a multi detector CT scanner. Sagittal and coronal images were reconstructed. Individualized dose optimization techniques were used for this CT. COMPARISON: None. FINDINGS: Normal soft tissue structures. Normal orbital saunders and orbital contents. Normal nasal bones and anterior nasal spine. Normal facial bones. There is no demonstrated fracture. Normal visualized paranasal sinuses. CT/Sinus/Facial Bone IMPRESSION: 1. No maxillofacial fracture. Electronically Signed: Beny Shay MD ([place]) at 14:37 EST , Service support ,
--- NOTE | 2020-03-23 13:48 | RAD_ITS ---
STUDY: X-RAY - BILATERAL RIBS WITH CHEST REASON FOR EXAM: Male, 55 years old. Fall, pain in ribs. TECHNIQUE - RIBS: 10 view(s) of the ribs. TECHNIQUE - CHEST: PA COMPARISON: None. FINDINGS - RIBS : Nondisplaced transverse fractures of the left anterior seventh and eighth ribs. FINDINGS - CHEST: The lungs are clear and expanded. There is no demonstrated pleural abnormality. Normal size heart. Normal mediastinum and nelda. Normal visualized pulmonary arteries. Normal visualized aortic arch and descending thoracic aorta. Normal visualized thoracic spine. Surgical sutures project in the abdomen. RAD/Ribs Koery Min 4V w/PA Chest IMPRESSION: RIBS: Nondisplaced left anterior seventh and eighth rib fractures. CHEST: No pneumothorax. Electronically Signed: Beny Shay MD ([place]) at 15:10 EST , Service support ,
--- NOTE | 2020-03-23 13:53 | RAD_ITS ---
STUDY: X-RAY - LEFT HAND REASON FOR EXAM: Male, 55 years old. Fall, left hand pain. TECHNIQUE: 3 view(s) of the hand. COMPARISON: None. FINDINGS: Normal radiocarpal articulation. Normal distal radioulnar joint. There is a linear lucency at the base of the ulnar styloid that could represent nondisplaced fracture. Normal visualized carpal bones. Normal carpal articulations Normal carpometacarpal articulation of the thumb. Normal second through fifth carpometacarpal joints. Normal metacarpi. Normal metacarpophalangeal joint of the thumb. Normal interphalangeal joint of the thumb. Normal proximal and distal phalanges of the thumb. There is degenerative arthrosis of the second and third metacarpophalangeal (MCP) joints. Normal proximal and distal interphalangeal joints of the second through fifth fingers. Normal phalanges of the second through fifth fingers. There are vascular calcifications. RAD/Hand Min 3 Views IMPRESSION: Possible nondisplaced fracture the base of the ulnar styloid. Recommend correlating with clinical palpation. Electronically Signed: Beny Shay MD ([place]) at 15:04 EST , Service support ,
[2020-03-23] MEDS: morphine 8 MG/ML Syringe 6 MG IM (14:03)
[2020-03-23] MEDS: Lidocaine 5% Patch 1 PATCH TOPICAL (16:34)
[2020-03-23] MEDS: oxyCODONE 5 MG Tablet PO (16:34)
[2020-03-23 16:42] VITALS: BP 175/88; PULSE 87; RESP 17; RESP 18; O2SAT 95
--- NOTE | 2020-03-23 16:56 | ED.VIS.FALL ---
History of Present Illness Chief Complaint: Fall Informant: Patient Occurred: Today Mechanism/Context: Trip, Dizziness. Negative for: Cannot recall fall Usually ambulates: Without assistance Quality of Pain: Sharp, Aching Associated Symptoms: Negative for: Parasthesias, Weakness, Loss of function Narrative: Is a 55-year-old male with history of end-stage renal disease on hemodialysis Tuesday and Tuesday presented with injuries after mechanical fall. Patient states he was carrying a large box of CABG into his house to make sauerkraut. He had one step from the garage into the house when he missed a step and fell backwards. The box hit his face and the back of his head hit a metal fan and then the concrete. He is not sure if he lost consciousness because he was dazed at the time. He started having a bloody nose. When he got up he fell again forward because he lost his balance landing on his left side as well as his hands and his knees. He is complaining of significant pain at the back of his head, his chest and his left wrist/hip. Pain is worse with movement. No vision changes. No other complaints at this time. Is not on any anticoagulation. His last tetanus was 1 year ago. Tetanus Immunization: <5 years Past Medical History - Allergies and Home Meds Allergies/Adverse Reactions: Allergies No Known Allergies Allergy (Verified 03/23/20 13:20) Primary Care Physician: Marge King LEAD APPLICATION ARCHITECT, LEAD APPLICATION ARCHITECT-C [Primary Care Provider] - Past Medical History: - - ESRD Surgical History: noncontributory, tonsillectomy, - - Right hemicolectomy due to Crohn's disease 15 years ago Lives: Spouse/ Significant Other Smoking Status: Former smoker - Family History Maternal Family History: Family History (Last Reviewed 02/29/20 @ 08:24 by Luly Nunez) Father Diabetes Heart disease Hypertension Family History: Reports: - - Patient does not know maternal medical history. Paternal Family History: Family History (Last Reviewed 02/29/20 @ 08:24 by Luly Nunez) Father Diabetes Heart disease Hypertension Family History: Reports: Diabetes, Heart Disease, - - His father was blind in one eye. Review of Systems General: Denies: Chills, Fever, Sweats Eyes: Denies: Visual changes - left, Visual changes - bilaterally, Diplopia ENT: Reports: - - epistaxis . Denies: Rhinorrhea, Sore throat Cardiovascular: Reports: Chest pain - anterior . Denies: Palpitations, Heart racing Respiratory: Denies: Dyspnea, Cough, Dyspnea on exertion Gastrointestinal: Denies: Abdominal pain, Nausea, Vomiting, Diarrhea, Melena, Hematochezia Genitourinary: Denies: Dysuria, Hematuria, Frequency Musculoskeletal: Reports: Myalgias, Back pain - diffuse , Extremity Pain - left sided Skin: Reports: Abrasions - head, left elbow . Denies: Rash, Wounds Neurological: Reports: Headache. Denies: Weakness, Parasthesia, Numbness Physical Exam Vital Signs/Narrative: Vital Signs Temp Pulse Resp BP Pulse Ox 03/23/20 16:42 87 18 175/88 H 95 03/23/20 13:20 96.0 F L 88 17 185/91 H 100 Inital Vital Signs reviewed: Yes General: Well nourished, Well developed Head: Normocephalic, Atraumatic Eyes: Perrl, EOMI ENT: TM's clear, No hemotympanum or drainage, No trauma, Nasal trauma - Blood in the left nares, no active bleeding. No blood noted in the oropharynx, - - No malocclusion. Pain of the right TMJ with biting down. Negative for: Nasal septal hematoma Neck: Nontender, Full ROM Cardiovascular: Regular rate, Regular rhythm, No murmurs, - - AV fistula in the left upper extremity with palpable thrill Respiratory: No distress, CTA bilaterally, Chest tenderness - Tenderness to palpation of the anterior chest wall diffusely but more pronounced on the left Abdomen: Soft, Nontender, Nondistended, Normal bowel sounds. Negative for: Guarding, Rebound tenderness Back: Spinal Tenderness - Lumbar region, Paraspinal Tenderness - Lumbar region, -. Negative for: CVA Tenderness - Right, CVA Tenderness - Left Extremeties: No obvious deformities. Extremities are all equal length. Normal range of motion. Patient does have pain with passive range of motion of the left hip. Pelvis is stable. No obvious deformity of the left wrist and no tenderness to palpation over the ulna or radius however patient does have tenderness palpation over the left thenar eminence with no obvious deformity or edema. Range of motion is intact of the hand. Skin: Normal color, No rash Neurological: Alert, Oriented x3, Cranial nerves II-XII grossly intact, Normal Strength, Normal Sensation Psychological: Normal affect Diagnostic/Tx/Re-eval Clinical Impression(s) from Imaging Studies Brain CT 03/23/20 13:47 IMPRESSION: 1. No acute intracranial hemorrhage or mass effect. 2. Posterior scalp soft tissue swelling/contusion. Electronically Signed: Beny Shay MD ([place]oks) at 14:36 EST , Service support , Cervical Spine CT 03/23/20 13:47 IMPRESSION: 1. No cervical spine fracture or traumatic subluxation. 2. Mild posterior posterior neck soft tissue swelling. Electronically Signed: Beny Shay MD (Brooks) at 15:15 EST , Service support , Hip/Pelvis X-Ray 03/23/20 13:47 IMPRESSION: No fracture demonstrated. Electronically Signed: Beny Shay MD (Brooks) at 15:06 EST , Service support , Lumbar Spine X-Ray 03/23/20 13:47 IMPRESSION: 1. No compression fracture. 2. Degenerative changes. Electronically Signed: Beny Shay MD (Brooks) at 15:08 EST , Service support , Facial/Sinus 03/23/20 13:48 IMPRESSION: 1. No maxillofacial fracture. Electronically Signed: Beny Shay MD (Brooks) at 14:37 EST , Service support , Ribs w/Chest X-Ray 03/23/20 13:48 IMPRESSION: RIBS: Nondisplaced left anterior seventh and eighth rib fractures. CHEST: No pneumothorax. Electronically Signed: Beny Shay MD (Brooks) at 15:10 EST , Service support , Hand X-Ray 03/23/20 13:53 IMPRESSION: Possible nondisplaced fracture the base of the ulnar styloid. Recommend correlating with clinical palpation. Electronically Signed: Beny Shay MD (Brooks) at 15:04 EST , Service support , - Medical Decision Making Patient evaluated after mechanical fall. Patient actually had 2 falls. He has hematoma to his posterior scalp and had questionable loss of consciousness. Head CT as well as C-spine obtained which does not show any intracranial process or fracture. He is having pain of his right mandible with no deformity. In addition he has signs of epistaxis which is since resolved. No CSF rhinorrhea noted. He has no malocclusion. CT of the face does not show any acute fracture. In addition patient has significant chest wall tenderness left slightly worse than right and tenderness palpation of the left hip and left hand. Patient not have any tenderness over his ulna. X-ray shows a possible ulnar styloid fracture but this does not correspond with his pain. X-rays do show 2 nondisplaced seventh and eighth rib fractures on the left. Patient treated with pain control emergency room. He does have some improvement of his symptoms. Patient is given a Lidoderm patch as well as incentive spirometer and counseled on the complications of rib fractures including pneumonia. He is discharged home with oxycodone for pain control. He is given a dose prior to discharge. Patient is agreeable with plan and feels safe going home. Patient is counseled on signs and symptoms requiring return to the emergency room. Patient verbalizes agreement and understand this plan. Patient discharged home in stable and improved condition. He is encouraged to make sure that he goes to dialysis tomorrow does not miss it. ED Disposition - Plan for ED Patient: Disposition: Home or Assisted Living Diagnosis: Multiple fractures of ribs, left side, initial encounter for closed fracture, Contusion of left hand, Fall, Closed head injury, Scalp hematoma Instructions: ED SOFT TISSUE CONTUSION, ED Rib Fx, ED Head Injury Adult Prescriptions: Oxycodone HCl/Acetaminophen [Percocet 5/325] 1 tab PO Q6H PRN PRN 3 Days #12 tab PRN Reason: Pain Transmission Status: Received by [id number] Referrals: Marge King LEAD APPLICATION ARCHITECT, LEAD APPLICATION ARCHITECT-C [Primary Care Provider] - Additional Instructions: You have 2 rib fractures but no other broken bones. The rest are just bruises and pulled muscles likely. Please use incentive spirometer every hour to help prevent pneumonia associate with a rib fractures. Use Lidoderm patch over the ribs for pain as well as the Percocet prescribed. Is important that you continue to go to dialysis tomorrow. Return the emergency room if you have worsening symptoms or cannot get your pain under control.
== END 2020-03-23 17:29 | disposition home or self-care (01) ==
PROVIDERS: Emergency Provider Emergency Medicine; PCP Nurse Practitioner Family
DX: S22.42XA Multiple fractures of ribs, left side, initial encounter for closed fracture (principal); S00.03XA Contusion of scalp, initial encounter; S60.222A Contusion of left hand, initial encounter; Z99.2 Dependence on renal dialysis; N18.6 End stage renal disease; W18.30XA Fall on same level, unspecified, initial encounter; Y93.01 Activity, walking, marching and hiking; Y92.008 Other place in unspecified non-institutional (private) residence as the place of occurrence of the external cause; Y99.8 Other external cause status
CPT/HCPCS: 70450; 70486; 71111; 72100; 72125; 73130; 73502; 96372; 99283

== ENCOUNTER 2020-08-26 16:20 | Observation (INO) | payer MEDICARE, MEDICAID, SELFPAY ==
[2020-08-26] VITALS (11 sets, daily range): BP systolic 117–166; BP diastolic 62–83; PULSE 98–137; RESP 16–26; TEMP 36.6–36.9; O2SAT 93–98; BMI 34.4; BMI 33.8
--- NOTE | 2020-08-26 16:42 | ED.VIS.GEN ---
History of Present Illness Chief Complaint: Chest Pain Informant: Patient Narrative: 55-year-old male with stage V chronic kidney disease presenting with right sided arm pain which he experienced while a blood pressure cuff was going off during dialysis. This radiated to his right shoulder and to his right neck. He did not get sweaty, nauseous, lightheaded. When the blood pressure cuff came off he states the symptoms resolved. He does have a mild headache. Patient states that he normally does dialysis Tuesday, Tuesday, Tuesday however he was not feeling well after getting his second Covid vaccine and changed his days. Currently he went today and finished dialysis and has to go back tomorrow for dialysis. He still makes urine. Patient denies any cardiac history except for hypertension. He states he had recent echocardiogram in [place] within the year. Patient states that he is on the kidney transplant list currently. He has no history of DVT/PE. - Past Medical History (1) Arterial steal syndrome Status: Chronic (2) Chronic renal failure, stage 5 Status: Chronic (3) Crohn's disease Status: Chronic Past Medical History - Allergies and Home Meds Allergies/Adverse Reactions: Allergies No Known Allergies Allergy (Verified 03/23/20 13:20) Past Medical History: - - CKD stage V, hypertension, diabetes, hypothyroidism Surgical History: noncontributory, tonsillectomy, - - Right hemicolectomy due to Crohn's disease 15 years ago Smoking Status: Never smoker Alcohol: None Drugs: None - Family History Maternal Family History: Family History (Last Reviewed 08/26/20 @ 21:29 by LEONOR Baum) Father Diabetes Heart disease Hypertension Family History: Reports: - - Patient does not know maternal medical history. Paternal Family History: Family History (Last Reviewed 08/26/20 @ 21:29 by LEONOR Baum) Father Diabetes Heart disease Hypertension Family History: Reports: Diabetes, Heart Disease, - - His father was blind in one eye. Review of Systems General: Reports: Malaise. Denies: Chills, Fever Eyes: Denies: Visual changes - bilaterally, Diplopia ENT: Denies: Rhinorrhea, Sore throat Cardiovascular: Reports: Chest pain - Right-sided, Heart racing Respiratory: Denies: Dyspnea, Cough, Dyspnea on exertion Gastrointestinal: Denies: Abdominal pain, Nausea, Vomiting, Diarrhea, Melena, Hematochezia Genitourinary: Denies: Dysuria, Hematuria, Frequency Musculoskeletal: Reports: - - She experienced right bicep pain with blood pressure cuff earlier which is resolved. Skin: Denies: Rash, Wounds Neurological: Reports: Headache. Denies: Weakness, Parasthesia Psych: Denies: Depression, Anxiety Physical Exam Vital Signs/Narrative: Vital Signs Temp Pulse Resp BP Pulse Ox 08/26/20 16:32 97.8 F 98 20 H 117/62 97 08/26/20 16:25 97.8 F 137 H 18 117/62 98 Inital Vital Signs reviewed: Yes General: Obese, No Acute Distress Head: Normocephalic, Atraumatic Eyes: Perrl, EOMI. Negative for: Scleral icterus ENT: Moist mucous membranes, No rhinorrhea Neck: Supple, Nontender Cardiovascular: Regular rhythm, Tachycardia Respiratory: No distress, CTA bilaterally Abdomen: Soft, Nontender, Nondistended Extremities: Nontender, No edema, - - Good thrill and bruit over left arm fistula Skin: Normal color, No rash Neurological: Alert, Oriented x3, Cranial nerves II-XII grossly intact Psychological: Normal affect, Normal Mood Diagnostic/Tx/Re-eval Clinical Impression(s) from Imaging Studies Chest X-Ray 08/26/20 17:30 IMPRESSION: Ill-defined opacities, differential diagnosis is atelectasis versus pneumonia or bronchial disease. Refer to more definitive imaging. Electronically Signed: Sandi Camacho MD at 17:48 EDT Tel , Service support , Chest CTA 08/26/20 17:56 IMPRESSION: 1. Technically limited study. 2. No large central pulmonary embolism in the main, right or left pulmonary arteries. 3. Refer to ultrasonography of the lobectomy venous system for further risk stratification versus repeat study. 4. Moderate bilateral pleural effusions, mild cardiomegaly. 5. Abnormal lung parenchyma diffusely, possibly pulmonary edema and/or superimposed viral pneumonia. Electronically Signed: Sandi Camacho MD at 19:37 EDT Tel , Service support , Laboratory Data 08/26/20 08/26/20 08/26/20 16:05 16:05 16:05 WBC 8.8 RBC 3.58 L Hgb 10.9 L Hct 32.5 L MCV 90.8 MCH 30.4 MCHC 33.5 RDW Std Deviation 43.4 RDW Coeff of [place] 13.1 Plt Count 217 MPV 11.1 Immature Gran % (Auto) 0.200 Neut % (Auto) 75.6 H Lymph % (Auto) 12.3 L [place] % (Auto) 6.5 Eos % (Auto) 4.8 Baso % (Auto) 0.6 Absolute Neuts (auto) 6.7 Absolute Lymphs (auto) 1.08 Nucleated RBC % 0 Sodium 137 Potassium 3.2 L Chloride 98 Carbon Dioxide 30.0 Anion Gap 9 BUN 21 H Creatinine 3.83 H Estim Creat Clear Calc 22.66 Est GFR (MDRD) Af Amer 21 L Est GFR (MDRD) Non-Af 17 L BUN/Creatinine Ratio 5.5 L Glucose 119 H Calcium 8.4 L Magnesium 2.3 Troponin I < 0.015 Procalcitonin TSH 62.70 H Free T4 1.21 COVID-19 (RICK) 08/26/20 08/26/20 08/26/20 18:07 18:10 19:05 WBC RBC Hgb Hct MCV MCH MCHC RDW Std Deviation RDW Coeff of [place] Plt Count MPV Immature Gran % (Auto) Neut % (Auto) Lymph % (Auto) [place] % (Auto) Eos % (Auto) Baso % (Auto) Absolute Neuts (auto) Absolute Lymphs (auto) Nucleated RBC % Sodium Potassium Chloride Carbon Dioxide Anion Gap BUN Creatinine Estim Creat Clear Calc Est GFR (MDRD) Af Amer Est GFR (MDRD) Non-Af BUN/Creatinine Ratio Glucose Calcium Magnesium Troponin I 0.071 H Procalcitonin 1.14 H TSH Free T4 COVID-19 (RICK) Not Detected - Medical Decision Making 55-year-old male with CKD stage V hypertension, diabetes, Crohn's disease presenting with right-sided arm pain, chest pain, neck pain. He states that this started to occur when he had the blood pressure cuff on his arm at dialysis today. Patient did state that he has been rundown for the last few days and had rhinorrhea. He attributed this to his second COVID-19 shot last . Patient arrives today and he is not hypoxic and his vital signs are stable but given his chest pain he did have a cardiac work-up. His prehospital EKG shows atrial fibrillation at 135 bpm as interpreted by myself and he has no history of this. On arrival he has an EKG which shows sinus tachycardia at 102 bpm without signs of ischemic changes. Patient's initial troponin was negative. Chest x-ray interpreted by myself shows ill-defined infiltrates versus atelectasis as interpreted by myself and radiology does agree. Given these findings and patient's symptoms for last few days I did test him for Covid 19 and this is negative. Given his new onset A. fib and chest pain I did rule out PE with CTA. He will be dialyzed tomorrow. CTA does show pleural effusions as well as cardiomegaly but does not identify PE or dissection as interpreted by the radiologist. Patient's TSH is 62.7 however free T4 is within normal range. CBC shows white blood cell count of 8.8, hemoglobin 10.9, hematocrit 32.5. CMP shows sodium 131, potassium 3.2, CO2 30, creatinine 3.83. Given patient's renal disease I believe would be expected. I did add magnesium since his potassium was low and this is pending. Calcium will be replaced on the floor if normal. Patient's delta troponin showed a sinus rhythm at 95 bpm as interpreted by myself. This does not appear to be significantly changed from his initial EKG in the ER. Patient's delta troponin did go up to 0.0 71. given this finding and patient's heart score of 4 believe the patient needs to be admitted especially since he had new onset A. fib which has resolved. Patient was discussed with Dr. Yost who recommended starting low-dose Eliquis and metoprolol [address] Yost did have me call [facility] given that the patient is a potential renal transplant patient to see if they would keep him there however the beds were full. Patient discussed with hospitalist patient admitted to the floor in stable condition. Impression: 1. Indeterminate troponin 2. Chest pain 3. New onset A. fib 4. History of chronic kidney disease - Critical Care Time Critical care time (excluding procedures): 30-74 minutes, Discussing w/Consultants, Arranging Admission or Transfer ED Disposition - Plan for ED Patient: Disposition: Acute Care Hospital [facility]
--- NOTE | 2020-08-26 17:10 | EKG12_ITS ---
Test Reason : CP ADMISSION Blood Pressure : / mmHG Vent. Rate : 097 BPM Atrial Rate : 097 BPM P-R Int : 130 ms QRS Dur : 078 ms QT Int : 398 ms P-R-T Axes : 008 -26 038 degrees QTc Int : 505 ms Sinus rhythm with occasional Premature ventricular complexes Prolonged QT Abnormal ECG Confirmed by SHAYAN TREADWELL, ALEXIA ([id number]), technical editor ANTONIO SHEPARD ([id number]) on 08/29/2020 3:09:47 PM Referred By: JULIANE Confirmed By:ALEXIA DOWNEY MD
[2020-08-26 17:19] LABS: Absolute Lymphocyte Count 1.08 X10^3/uL (0.83-4.51); Absolute Neutrophil Count 6.7 X10^3/uL (2.0-7.7); Basophil# 0.05 X10^3/uL; Basophil% 0.6 % (0-1); Eosinophil# 0.42 X10^3/uL; Eosinophils% 4.8 % (0-5); Hematocrit 32.5 % (40-54); Hemoglobin 10.9 g/dL (13.0-16.5); Lymphocyte # 1.08 X10^3/ul (4.0); Lymphocyte % 12.3 % (19-41); Mean Corp Hgb Conc 33.5 g/dL (32-36); Mean Corpuscular Hgb 30.4 pg (27.0-32.0); Mean Corpuscular Volume 90.8 fL (80-94); Mean Platelet Vol. 11.1 fl (6.2-12.0); Monocyte# 0.57 X10^3/uL; Monocyte% 6.5 % (0-10); NRBC Flagged by Analyzer 0 % (0-5); Neutrophil # 6.67 X10^3/uL (2.7-7.7); Neutrophil % 75.6 % (47-70); Platelet Count 217 K/mm3 (150-450); RBC Distribution Width CV 13.1 % (11.6-14.6); RBC Distribution Width SD 43.4 fl (35.1-43.9); Red Blood Count 3.58 M/mm3 (4.6-6.2); White Blood Count 8.8 K/mm3 (4.4-11.0)
--- NOTE | 2020-08-26 17:30 | RAD_ITS ---
STUDY: X-RAY CHEST REASON FOR EXAM: Male, 55 years old. chest pain TECHNIQUE: Frontal portable view of the chest COMPARISON: 07 August 2019 FINDINGS: Inspiratory volumes are low. There are ill-defined regional low density pulmonary opacities which can be atelectasis or due to bronchial or viral disease. There is no pneumothorax, cardiac megaly, pulmonary edema or pleural effusions. Vascular catheter has been removed. Osseous structures are intact. RAD/Chest 1 View (Portable) IMPRESSION: Ill-defined opacities, differential diagnosis is atelectasis versus pneumonia or bronchial disease. Refer to more definitive imaging. Electronically Signed: Sandi Camacho MD at 17:48 EDT Tel , Service support ,
[2020-08-26 17:44] LABS: Anion Gap 9 (5-15); BUN 21 mg/dL (7-18); BUN/Creat Ratio 5.5 RATIO (10-20); Calcium,Total 8.4 mg/dL (8.5-10.1); Chloride 98 mmol/L (98-107); Creatinine, Serum 3.83 mg/dL (0.70-1.30); EST Glomerular Filtration Rate 17 mL/min (>60); Est Glom Filt Rate - Afr Amer 21 mL/min (>60); Estimated Creatinine Clearance 22.66 ml/min; Glucose 119 mg/dL (74-106); Potassium 3.2 mmol/L (3.5-5.1); Sodium Level 137 mmol/L (136-145)
--- NOTE | 2020-08-26 17:56 | CT_ITS ---
STUDY: CTA CHEST REASON FOR EXAM: Male, 55 years old. Chest pain, hypertension diabetes renal failure RADIATION DOSAGE (If Supplied By Facility): CTDIvol = ( 10.43 ) mGy, DLP = ( 451.23 ) mGycm TECHNIQUE: The examination was performed with the intravenous administration of IV 75ML ISOVUE 370. Post-processing of the angiographic images was performed, with multiplanar reformation and 3D reconstruction. Individualized dose optimization techniques were used for this CT. COMPARISON: None. FINDINGS: Examination is technically suboptimal due to poor contrast enhancement of the pulmonary artery and patient''s large body habitus and suboptimal technique resulting in severe image noise elevation. Attenuation in the pulmonary artery is 152 HU versus guidelines recommended greater than 258 HU. Some diagnostic information is available. Main, proximal right and left pulmonary arteries are clear. Lobar and segmental branches cannot be reliably evaluated. Pulmonary attenuation is heterogeneously geographically increased with mixed groundglass opacities, a finding due to either pulmonary edema or viral pneumonia or both. There are moderate bilateral pleural effusions with basal atelectasis. Central airways are patent. Mediastinal lymph nodes are increased in number measuring up to 1 cm diffusely. Aorta is normal caliber and intact. Left ventricle is mildly enlarged. Left atrium is moderately enlarged. Pericardium is normal. T9 is compressed with likely internal incompletely healed fracture cleft and approximately 25% loss of height. There is mild posterior cortical retropulsion and moderate thecal sac stenosis at T9-T10. CT/CTA Chest W/WO Contrast IMPRESSION: 1. Technically limited study. 2. No large central pulmonary embolism in the main, right or left pulmonary arteries. 3. Refer to ultrasonography of the lobectomy venous system for further risk stratification versus repeat study. 4. Moderate bilateral pleural effusions, mild cardiomegaly. 5. Abnormal lung parenchyma diffusely, possibly pulmonary edema and/or superimposed viral pneumonia. Electronically Signed: Sandi Camacho MD at 19:37 EDT Tel , Service support ,
[2020-08-26 19:01] LABS: Procalcitonin 1.14 ng/mL (0.00-0.09)
[2020-08-26 19:02] LABS: Magnesium 2.3 mg/dL (1.6-2.6); T4 Free Direct 1.21 ng/dL (0.76-1.46)
--- NOTE | 2020-08-26 19:05 | EKG12_ITS ---
Test Reason : CP Blood Pressure : / mmHG Vent. Rate : 102 BPM Atrial Rate : 102 BPM P-R Int : 144 ms QRS Dur : 078 ms QT Int : 398 ms P-R-T Axes : 034 -30 041 degrees QTc Int : 518 ms Sinus tachycardia with Premature atrial complexes Left axis deviation Abnormal ECG Confirmed by LEIF TREADWELL, JOSE DANIEL ([id number]), online editor ANTONIO SHEPARD ([id number]) on 08/29/2020 2:58:24 PM Referred By: DMITRI Confirmed By:CLEMENCIA YADAV MD
--- NOTE | 2020-08-26 21:20 | HP.PCM_ITS ---
<Keyla Dominguez - Last Filed: 08/26/20 21:20> Problem List (1) Chest pain Status: Acute (2) Hypokalemia Status: Acute (3) Chronic renal failure, stage 5 Status: Acute (4) Diabetes Status: Chronic Qualifiers: Diabetes mellitus type: type 2 (5) Hypertension Status: Chronic Qualifiers: Hypertension type: essential hypertension Qualified Code(s): I10 - Essential (primary) hypertension (6) Crohn's disease Status: Chronic Qualifiers: Gastrointestinal tract location: small and large intestine Digestive disease complication type: without complication Qualified Code(s): K50.80 - Crohn's disease of both small and large intestine without complications (7) Hypothyroidism Status: Chronic History of Present Illness Date of Admission: 08/26/20 Chief Complaint: Chest pain The patient is a 55 year old M who presents today with complaints of right sided arm pain that radiated to his right shoulder and right neck and began during dialysis and seems to be related to placement of the blood pressure cuff during dialysis. Patient denies being diaphoretic, nauseous, lightheaded. Patient attends dialysis Tuesday, but has recently changed his days following he is Covid vaccine due to feeling unwell. Patient has no history of NM, cardiac catheterization, cardiac surgery. Patient medical history includes hypertension, Crohn's disease, chronic renal failure stage V, diabetes mellitus type 2 and hypothyroidism. Patient is currently on the kidney transplant list and sees a transplant team at [facility]. Patient denies fever, chills, shortness of breath, nausea, vomiting. Patient currently in ER bed, no distress noted. Patient reports complete resolution of symptoms, however patient second troponin elevated 0.071. Initial troponin normal. Past Medical History Past Medical History (Chronic Problems): Chronic Problems (Last Reviewed 08/26/20 @ 21:29 by LEONOR Baum) Hypothyroidism (Chronic) Arterial steal syndrome (Chronic) Chronic renal failure, stage 5 (Chronic) Diabetes (Chronic) Hypertension (Chronic) Crohn's disease (Chronic) Medical History: Medical History (Last Reviewed 08/26/20 @ 21:29 by BRAVO BaumC) Arterial steal syndrome (Chronic) I77.89 Chronic renal failure, stage 5 (Chronic) N18.5 Diabetes (Chronic) E11.9 Hypertension (Chronic) I10 Crohn's disease (Chronic) K50.90 Allergies No Known Allergies Allergy (Verified 03/23/20 13:20) Home Medications: Ambulatory Orders Medication Instructions Recorded Esomeprazole Magnesium [Nexium 20 mg PO DAILY PRN 05/06/19 24Hr] Amlodipine [Norvasc] 10 mg PO DAILY #30 tab 05/11/19 levothyroxine 25 mcg tablet 50 mcg PO DAILY tab 07/13/19 Fluticasone 0.05% [Flonase Nasal 1 spray NASAL DAILY 03/05/20 [place]] Insulin Lispro [Humalog] 0 unit SQ BID 03/05/20 Lactulose [Constulose] 10 gm PO PRN PRN 03/05/20 Surgical History: Surgical History (Last Reviewed 08/26/20 @ 21:29 by LEONOR Baum) History of right hemicolectomy Z90.49 History of tonsillectomy Z90.89 Surgical History: noncontributory, tonsillectomy, - - Right hemicolectomy due to Crohn's disease 15 years ago Psychiatric History: No pertinent psych hx Smoking Status: Never smoker Alcohol: None Drugs: None - *Family History Maternal Family History: Family History (Last Reviewed 08/26/20 @ 21:29 by Keyla Dominguez NP-C) Father Diabetes Heart disease Hypertension History Items: - - Patient does not know maternal medical history. Paternal Family History: Family History (Last Reviewed 08/26/20 @ 21:29 by Keyla Dominguez NP-C) Father Diabetes Heart disease Hypertension History Items: Diabetes, Heart Disease, - - His father was blind in one eye. Review of Systems Constitutional: Denies: Chills, Fever, Weight Change HEENT: Denies: Head Aches, Sinus Congestion, Sinus Drainage Cardiovascular: Reports: Chest Pain - Since resolved. Denies: Palpitations Respiratory: Denies: Cough, Shortness of breath at rest, Sputum production Gastrointestinal: Denies: Abdominal Pain, Nausea, Vomiting Genitourinary: Denies: Dysuria Musculoskeletal: Denies: Joint Pain, Joint Tenderness Skin: Denies: Rash, Wounds Neurological: Denies: Numbness, Tingling, Focal weakness Psychiatric: Denies: Anxiety, Depression, Homicidal Ideations, Suicidal Ideations Hematologic/ Lymphatic: Denies: Easy Bruising, Easy Bleeding VTE Information - Inpt Only VTE Present on Admission: No VTE Mechan Device Prophylaxis: None VTE Pharm Prophylaxis ordered?: Yes Patient Problems: Active and Suspected Problems (Last Updated 08/26/20 @ 21:[address] Frank Sherman MD) Chest pain (Acute) Hypokalemia (Acute) - Physical Exam Vitals/I&O's: Vital Signs Temp Pulse Resp BP Pulse Ox 98 F 98 19 H 154/80 H 96 08/26/20 21:09 08/26/20 21:09 08/26/20 21:09 08/26/20 21:09 08/26/20 21:09 Oxygen Delivery Method Room Air Weight: 246 lb 14.684 oz Body Mass Index (BMI) 34.4 General: Alert, Oriented x3, Cooperative HEENT: Atraumatic, PERRLA, EOMI, Normocephalic Neck: Supple, No JVD, Negative Carotid Bruits Lungs: Clear to auscultation, Normal air movement, No rhonchi, No wheeze, No rales Cardiovascular: Regular rate, Regular Rhythm, Normal S1, Normal S2, No murmurs, Tachycardic Abdomen: Bowel Sounds Present, Soft, Non Tender Extremities: No edema, Capillary Refill Less than 3 Seconds Skin: No rashes, No breakdown Musculoskeletal: No Tenderness to Palpation of Joints or Extremities Neurological: Cranial nerves II-XII grossly intact Psych/Mental Status: Normal Affect, Appropriate Laboratory Results 08/26/20 16:05: WBC 8.8, RBC 3.58 L, Hgb 10.9 L, Hct 32.5 L, MCV 90.8, MCH 30.4, MCHC 33.5, RDW Std Deviation 43.4, RDW Coeff of Glne 13.1, Plt Count 217, MPV 11.1, Immature Gran % (Auto) 0.200, Neut % (Auto) 75.6 H, Lymph % (Auto) 12.3 L, [place] % (Auto) 6.5, Eos % (Auto) 4.8, Baso % (Auto) 0.6, Absolute Neuts (auto) 6.7, Absolute Lymphs (auto) 1.08, Nucleated RBC % 0 08/26/20 16:05: Sodium 137, Potassium 3.2 L, Chloride 98, Carbon Dioxide 30.0, Anion Gap 9, BUN 21 H, Creatinine 3.83 H, Estim Creat Clear Calc 22.66, Est GFR (MDRD) Af Amer 21 L, Est GFR (MDRD) Non-Af 17 L, BUN/Creatinine Ratio 5.5 L, Glucose 119 H, Calcium 8.4 L, Troponin I < 0.015, TSH 62.70 H 08/26/20 16:05: Magnesium 2.3, Free T4 1.21 08/26/20 18:07: COVID-19 (RICK) Not Detected 08/26/20 18:10: Procalcitonin 1.14 H 08/26/20 19:05: Troponin I 0.071 H Assessment/Plan All Active Problems (Last Updated 08/26/20 @ 21:[address] Frank Sherman MD) Chest pain (Acute) Hypokalemia (Acute) 1. Chest pain -Admit to PCU for cardiac monitoring -Consult cardiology -Trend cardiac enzymes -Echo in the a.m. -EKG in the a.m. -CBC and BMP in a.m. 2. Hypokalemia -Potassium chloride 40 mEq x 1 given. -We will recheck BMP in a.m. 3. Hypertension -Continue home regimen of Norvasc. -As needed hydralazine ordered 4. Diabetes -Hold home insulin regimen, AC at bedtime blood sugars with sliding scale insulin 5. Chronic renal failure, stage V -Will consult Dr. Mancini press officer -As patient had CT scan with contrast today we will plan for dialysis tomorrow. -Patient continues to urinate despite dialysis status, encourage p.o. fluids. 6. Hypothyroidism -Patient currently on levothyroxine 25 mcg daily, however TSH in ER 62.7. -T4 and free T3 ordered. -Levothyroxine increased to 50 mcg daily. DVT prophylaxis-subcu heparin This patient was seen by LEONOR Baum under the supervision of Dr. Sherman. <Frank Sherman - Last Filed: 08/26/20 21:57> History of Present Illness The patient is a 55 year old M [] Past Medical History Medical History: Medical History (Last Reviewed 08/26/20 @ 21:29 by LEONOR Baum) Arterial steal syndrome (Chronic) I77.89 Chronic renal failure, stage 5 (Chronic) N18.5 Diabetes (Chronic) E11.9 Hypertension (Chronic) I10 Crohn's disease (Chronic) K50.90 Allergies No Known Allergies Allergy (Verified 03/23/20 13:20) Surgical History: Surgical History (Last Reviewed 08/26/20 @ 21:29 by LEONOR Baum) History of right hemicolectomy Z90.49 History of tonsillectomy Z90.89 - *Family History Maternal Family History: Family History (Last Reviewed 08/26/20 @ 21:29 by LEONOR Baum) Father Diabetes Heart disease Hypertension Paternal Family History: Family History (Last Reviewed 08/26/20 @ 21:29 by LEONOR Baum) Father Diabetes Heart disease Hypertension - Physical Exam Vitals/I&O's: Vital Signs Temp Pulse Resp BP Pulse Ox 98 F 98 19 H 154/80 H 96 08/26/20 21:09 08/26/20 21:09 08/26/20 21:09 08/26/20 21:09 08/26/20 21:09 Oxygen Delivery Method Room Air Weight: 246 lb 14.684 oz Body Mass Index (BMI) 34.4 Laboratory Results 08/26/20 16:05: WBC 8.8, RBC 3.58 L, Hgb 10.9 L, Hct 32.5 L, MCV 90.8, MCH 30.4, MCHC 33.5, RDW Std Deviation 43.4, RDW Coeff of [place] 13.1, Plt Count 217, MPV 11.1, Immature Gran % (Auto) 0.200, Neut % (Auto) 75.6 H, Lymph % (Auto) 12.3 L, [place] % (Auto) 6.5, Eos % (Auto) 4.8, Baso % (Auto) 0.6, Absolute Neuts (auto) 6.7, Absolute Lymphs (auto) 1.08, Nucleated RBC % 0 08/26/20 16:05: Sodium 137, Potassium 3.2 L, Chloride 98, Carbon Dioxide 30.0, Anion Gap 9, BUN 21 H, Creatinine 3.83 H, Estim Creat Clear Calc 22.66, Est GFR (MDRD) Af Amer 21 L, Est GFR (MDRD) Non-Af 17 L, BUN/Creatinine Ratio 5.5 L, Glucose 119 H, Calcium 8.4 L, Troponin I < 0.015, TSH 62.70 H 08/26/20 16:05: Magnesium 2.3, Free T4 1.21 08/26/20 18:07: COVID-19 (RICK) Not Detected 08/26/20 18:10: Procalcitonin 1.14 H 08/26/20 19:05: Troponin I 0.071 H Assessment/Plan Hospitalist note: I am seeing this patient in conjunction with Keyla Dominguez. I independently seen and examined the patient. History and physical, laboratory data and imaging studies reviewed and I concur with the above admission and treatment plan. Patient presented to the emergency room because of chest pain. Symptoms started during dialysis around 3 PM today, started having right arm pain when the blood pressure cuff inflated, pain went to the right side of his chest, dull aching pain, 4 out of 10 in severity, radiates to his neck and without aggravating or relieving factors. He denied associated shortness of breath, diaphoresis, nausea or vomiting. Currently, he is chest pain-free. He is on dialysis on Mondays, Wednesdays and Fridays but he did not go to dialysis yesterday because he felt sick after he received COVID-19 vaccine 4 days ago. He went for dialysis today and is supposed to go for dialysis again tomorrow. In the emergency department, his blood pressure was slight elevated, other vital signs were stable. Routine blood work was remarkable for hemoglobin of 10.9 g/dL which is chronic, potassium is 3.2, BUN is 21, creatinine is 3.83. EKG that was done by [facility] revealed questionable A. fib, no acute hemic changes. Repeat EKG in the ED revealed normal sinus rhythm with PACs, no acute ischemic changes. Troponin was 0.071. TSH was high elevated 62.7. COVID-19 PCR was negative. Chest x-ray revealed atelectasis, low-density pulmonary opacities which could be atelectasis. CTA chest showed no PE or dissection, revealed diffuse abnormal lung parenchyma, mixed groundglass opacities. Patient is being admitted for chest pain and abnormal cardiac enzymes for evaluation. - Physical Exam General: Alert, Oriented x3, Cooperative, No apparent distress. HEENT: Atraumatic, PERRLA, EOMI. Neck: Supple, No JVD, Negative Carotid Bruits, Trachea Midline, Thyroid Normal. Lungs: Clear to auscultation, Normal air movement, No rhonchi, No wheeze, No rales. Cardiovascular: Regular rate, Regular Rhythm, Normal S1, Normal S2, PMI Normal. Abdomen: Bowel Sounds Present, Soft, Non Tender, Non-Distended, No Hepato- splenomegaly. Extremities: No clubbing, No cyanosis, No edema Skin: No rashes, No breakdown Neurological: Cranial nerves are intact, neuro grossly intact Vital Signs are stable. Assessment and plan: #1 chest pain/abnormal cardiac enzymes: EKG that was done by squad as well as EKG in the ED both reviewed as above. Troponin is minimally elevated. Patient is currently chest pain-free. CTA chest and chest x-ray reviewed. COVID-19 PCR was negative. Plan: Admit to PCU for observation, cardiac monitoring, serial cardiac enzymes, repeat EKG tomorrow morning, start baby aspirin, 2D echocardiogram, cardiology consult, Tylenol as needed, sublingual nitro as needed, repeat CBC and BMP tomorrow morning. #2 hypokalemia: Patient underwent dialysis today which likely the reason. Plan to place potassium with p.o. K. Dur x1, repeat BMP tomorrow morning. #3 end-stage renal disease on hemodialysis: Normally, patient goes for dialysis on Mondays, Wednesdays and Fridays. He missed dialysis Tuesday because he was sick after he received COVID-19 vaccine. Patient went for dialysis today and he is supposed to go for this tomorrow as well. Also, he received IV contrast for the CTA so he will need hemodialysis tomorrow morning. Plan for nephrology consult. #4 hypothyroidism: Patient has been on levothyroxine. TSH is very high. Patient is not sure if he is on 50 mcg of levothyroxine 75 mcg. We will resume levothyroxine at 75 mcg daily. Patient will need repeat TSH in 2 weeks. #5 other chronic medical problems: Stable, continue current medications as above. This note was generated with [employer] software. It may contain incorrect words, spelling, and punctuation that were not noted in checking the note before signing. OBSV E&M: 10285 Initial observation care L3
--- NOTE | 2020-08-26 21:35 | EKG12_ITS ---
Test Reason : REPEAT Blood Pressure : / mmHG Vent. Rate : 095 BPM Atrial Rate : 095 BPM P-R Int : 136 ms QRS Dur : 074 ms QT Int : 394 ms P-R-T Axes : 007 -28 046 degrees QTc Int : 495 ms Sinus rhythm with Premature atrial complexes Prolonged QT Abnormal ECG Confirmed by LEIF TREADWELL, JOSE DANIEL ([id number]), disposal man MARIANELA OROURKE ([id number]) on 09/04/2020 10:04:04 AM Referred By: Confirmed By:CLEMENCIA YADAV MD
--- NOTE | 2020-08-26 21:49 | ECHOCS_ITS ---
Reason For Study: Chest Pain Procedure This was a 2D Doppler, Color Flow transthoracic echocardiogram. The study was technically difficult. Contrast injection was performed. Exam performed portable in patient room. Left Ventricle Left ventricular systolic function is normal. The estimated ejection fraction is 60 %. No evidence for diastolic dysfunction. No regional wall motion abnormalities noted. Right Ventricle Normal RV size. Normal systolic function. Atria The left atrium is mildly enlarged. Normal right atrium. No doppler evidence for ASD. Mitral Valve There is no mitral annular calcification. Normal mitral valve. Trivial mitral valve insufficiency. Tricuspid Valve Normal tricuspid valve. Trivial tricuspid valve insufficiency. Unable to estimate RV systolic pressure/pulmonary artery pressure due to technically difficult study. Aortic Valve The aortic valve is not well visualized. Pulmonic Valve The pulmonic valve is not well visualized. Great Vessels The aortic root is not well visualized. Pericardium/Pleural No pericardial effusion. Medication Diluted definity 2ml given slow IV push to enhance endocardial definition. MMode/2D Measurements & Calculations LVIDd: 5.0 cm IVSd: 1.2 cm LA dimension: 3.8 cm LVIDs: 3.4 cm LVPWd: 1.1 cm FS: 31.9 % LAV(MOD-bp): 68.6 ml LA A4 area: 23.3 cm2 LAV(MOD-bp) Indexed: 30.0 ml/m2 LAV(MOD-sp2): 60.9 ml LAV(MOD-sp4): 76.0 ml Time Measurements MV dec time: 0.21 sec Doppler Measurements & Calculations MV E max manoj: 140.8 cm/sec Lat Peak E' Manoj: 10.3 cm/sec Med Peak E' Manoj: 8.6 cm/sec MV A max manoj: 86.8 cm/sec E/E' lat: 13.7 E/E' med: 16.4 MV E/A: 1.6 MV V2 max: 157.9 cm/sec MV P1/2t max manoj: 157.0 cm/sec Ao V2 max: 134.4 cm/sec MV max P.0 mmHg MV P1/2t: 76.3 msec Ao max P.2 mmHg MV V2 mean: 93.1 cm/sec MV dec slope: 602.8 cm/sec2 MV mean P.0 mmHg MV V2 VTI: 38.2 cm MVA(P1/2t): 2.9 cm2 LV V1 max: 110.4 cm/sec PA V2 max: 99.5 cm/sec LV V1 max P.9 mmHg ECHO/Echo Complete W/ Contrast Interpretation Summary The study was technically difficult. Contrast injection was performed. Left ventricular systolic function is normal. The estimated ejection fraction is 60 %. The left atrium is mildly enlarged. Trivial mitral valve insufficiency. Trivial tricuspid valve insufficiency. Unable to estimate RV systolic pressure/pulmonary artery pressure due to techni gianna difficult study. No evidence for diastolic dysfunction. Ordering Physician: Frank Sherman Referring Physician: Marge King Performed By: Rios Durham RCS
[2020-08-26 22:32] LABS: International Normalized Ratio 1.2; Prothrombin Time (Protime)PT. 14.6 SECONDS (11.7-14.9)
[2020-08-26 22:52] LABS: Free T3 1.5 pg/mL (2.18-3.98); T4 Total, Thyroxin 8.6 ug/dL (4.5-12.1)
[2020-08-26] MEDS: Potassium Chloride Oral Tablet 20 MEQ 40 MEQ PO (23:33)
[2020-08-26] MEDS: Heparin Injection (Vial) 5,000 UNIT/ML VIAL 5000 UNIT SC (23:34)
[2020-08-27] VITALS (19 sets, daily range): BP systolic 142–180; BP diastolic 61–86; PULSE 80–94; RESP 16–20; TEMP 36.7–37.3; O2SAT 94–99
[2020-08-27] MEDS: Acetaminophen 325 MG Tablet 650 MG PO ×3 (00:18→21:23)
[2020-08-27] MEDS: Insulin NPH Human 100 UNITS/ML PEN SC (00:38)
--- NOTE | 2020-08-27 00:39 | NURSING ---
Administered 22u of Humalin at this time per pt. request. Verified with Jas Dominguez NP.
[2020-08-27 05:47] LABS: Absolute Lymphocyte Count 1.19 X10^3/uL (0.83-4.51); Absolute Neutrophil Count 8.3 X10^3/uL (2.0-7.7); Basophil# 0.05 X10^3/uL; Basophil% 0.5 % (0-1); Eosinophil# 0.24 X10^3/uL; Eosinophils% 2.2 % (0-5); Hematocrit 27.9 % (40-54); Hemoglobin 9.2 g/dL (13.0-16.5); Lymphocyte # 1.19 X10^3/ul (4.0); Lymphocyte % 11.1 % (19-41); Mean Corpuscular Hgb 30.5 pg (27.0-32.0); Mean Corpuscular Volume 92.4 fL (80-94); Mean Platelet Vol. 10.7 fl (6.2-12.0); Monocyte# 0.89 X10^3/uL; Monocyte% 8.3 % (0-10); NRBC Flagged by Analyzer 0 % (0-5); Neutrophil # 8.34 X10^3/uL (2.7-7.7); Neutrophil % 77.5 % (47-70); Platelet Count 208 K/mm3 (150-450); RBC Distribution Width CV 13.2 % (11.6-14.6); RBC Distribution Width SD 43.8 fl (35.1-43.9); Red Blood Count 3.02 M/mm3 (4.6-6.2); White Blood Count 10.8 K/mm3 (4.4-11.0)
--- NOTE | 2020-08-27 05:55 | EKG12_ITS ---
Test Reason : AM EKG Blood Pressure : / mmHG Vent. Rate : 087 BPM Atrial Rate : 087 BPM P-R Int : 126 ms QRS Dur : 076 ms QT Int : 398 ms P-R-T Axes : 012 -30 036 degrees QTc Int : 478 ms Normal sinus rhythm Left axis deviation Abnormal ECG Confirmed by SHAYAN TREADWELL, ALEXIA ([id number]), legal editor ANTONIO SHEPARD ([id number]) on 08/29/2020 3:09:24 PM Referred By: JULIANE Confirmed By:ALEXIA DOWNEY MD
[2020-08-27 06:07] LABS: Anion Gap 6 (5-15); BUN 30 mg/dL (7-18); BUN/Creat Ratio 5.5 RATIO (10-20); Calcium,Total 8.4 mg/dL (8.5-10.1); Chloride 99 mmol/L (98-107); Creatinine, Serum 5.49 mg/dL (0.70-1.30); EST Glomerular Filtration Rate 11 mL/min (>60); Est Glom Filt Rate - Afr Amer 14 mL/min (>60); Estimated Creatinine Clearance 15.81 ml/min; Glucose 147 mg/dL (74-106); Potassium 4.5 mmol/L (3.5-5.1); Sodium Level 135 mmol/L (136-145)
[2020-08-27] MEDS: Levothyroxine 50 MCG Tablet PO (06:18)
[2020-08-27] MEDS: Aspirin 81 MG TAB.CHEW PO (06:18)
[2020-08-27] MEDS: Levothyroxine 75 MCG Tablet PO (06:19)
[2020-08-27] MEDS: TICAGRELOR 90 MG TABLET 180 MG PO (07:51)
[2020-08-27] MEDS: Dextrose 50%-Water 25 GM/50 ML DISP.SYRIN IV (07:59)
--- NOTE | 2020-08-27 09:36 | CON.PCM_ITS ---
Problem List (1) NSTEMI (non-ST elevated myocardial infarction) Status: Acute (2) Atrial fibrillation Status: Acute (3) Hypertension Status: Chronic Qualifiers: Hypertension type: essential hypertension Qualified Code(s): I10 - Essential (primary) hypertension (4) Diabetes Status: Chronic Qualifiers: Diabetes mellitus type: type 2 (5) ESRD (end stage renal disease) on dialysis Status: Acute Reason for Consult Date of Consultation: 08/27/20 History of Present Illness: The patient is a 55 year old white male with a history of hypertension, diabetes mellitus, end-stage renal disease on chronic hemodialysis, on the [facility] prerenal transplant list, who presented for evaluation of an episode of atrial fibrillation with RVR with spontaneous resolution to sinus rhythm and subsequent abnormal cardiac enzymes concerning for non-ST segment elevation FL. The patient states that, with the blood pressure cuff on his right upper extremity yesterday during dialysis yesterday-not his normal day for dialysis, he noted right upper extremity discomfort that radiated to his right chest and his right neck. He attributed this discomfort, which he states was somewhat sharp in characteristics, to the blood pressure cuff. During this time he was being evaluated and noted to have a rapid irregular heart rate. The EMS was called. Based upon the EMS ECG it appeared he had an episode of atrial fibrillation with RVR. Upon arrival at [facility] he was noted to have a repeat ECG that demonstrated sinus rhythm. He states he did not sense the rapid rate. He does not recall any acute respiratory related symptoms nor did he have any obvious nausea, emesis, or diaphoresis. There was no loss of consciousness. The [facility] ED did contact [facility] regarding transfer of the patient there based upon his prerenal transplant status, however, it was reported that [facility] was at capacity and did not have a bed available for him. Thus, he was subsequently placed in the PCU for further evaluation and care. During this time his cardiac enzymes have been repeated and they have elevated. He has had cardiac telemetry monitoring demonstrating sinus rhythm. His repeat ECG has demonstrated sinus rhythm with no acute ECG changes. Also has undergone chest x- ray and CT scan. The results are as noted below. He states he recently completed his COVID-19 vaccination injections. He did have a COVID-19 PCR test in the emergency department. It was reported as negative. Upon his risk factors, symptoms, and objective findings, he was recommended for further evaluation with diagnostic cardiac catheterization. Thus cardiology was consulted to evaluate the patient. [] Past Medical History Allergies/Adverse Reactions: Allergies No Known Allergies Allergy (Verified 03/23/20 13:20) Home Medications: Ambulatory Orders Medication Instructions Recorded Esomeprazole Magnesium [Nexium 20 mg PO PRN PRN 05/06/19 24Hr] Amlodipine [Norvasc] 10 mg PO DAILY #30 tab 05/11/19 levothyroxine 25 mcg tablet 50 mcg PO DAILY tab 07/13/19 Fluticasone 0.05% [Flonase Nasal 1 spray NASAL DAILY 03/05/20 [place]] Lactulose [Constulose] 10 gm PO PRN PRN 03/05/20 Acetaminophen [Tylenol Extra 500 mg PO Q6H PRN PRN 08/26/20 Strength] Insulin NPH Human Isophane See Protocol SQ PRN PRN 08/26/20 [Humulin N] Past Medical History (Chronic Problems): Chronic Problems (Last Updated 08/26/20 @ 21:[address] Frank Sherman MD) Hypothyroidism (Chronic) Arterial steal syndrome (Chronic) Chronic renal failure, stage 5 (Chronic) Diabetes (Chronic) Hypertension (Chronic) Crohn's disease (Chronic) Surgical History: noncontributory, tonsillectomy, - - Right hemicolectomy due to Crohn's disease 15 years ago Psychiatric History: No pertinent psych hx - *Family History Maternal Family History: Family History (Last Reviewed 08/26/20 @ 21:29 by LEONOR Baum) Father Diabetes Heart disease Hypertension History Items: - - Patient does not know maternal medical history. Paternal Family History: Family History (Last Reviewed 08/26/20 @ 21:29 by BRAVO BaumC) Father Diabetes Heart disease Hypertension History Items: Diabetes, Heart Disease, - - His father was blind in one eye. Smoking Status: Former smoker Tobacco Use: Non-smoker Alcohol: None Drugs: None Review of Systems - Review of Systems General: Denies: Fever, Night Sweats, Fatigue Cardiovascular: Reports: Chest Discomfort. Denies: Shortness of Breath, Orthopnea, PND, Peripheral Edema, Palpitations, Lightheadedness, Dizziness, Near Syncope, Syncope Respiratory: Denies: Cough, Sputum Production, Hemoptysis Gastrointestinal: Denies: Hematemesis, Hematochezia, Melena Genitourinary: Denies: Dysuria, Hematuria Skin: Denies: Rash Subjectve: This is a 55-year-old white male who appears to be resting comfortably at the moment in no acute distress. Objective: Vital Signs Temp Pulse Resp BP Pulse Ox 98.3 F 87 20 H 153/82 H 94 08/27/20 04:15 08/27/20 07:00 08/27/20 04:15 08/27/20 04:15 08/27/20 07:13 Oxygen Delivery Method Room Air Weight: 242 lb 8.136 oz Body Mass Index (BMI) 33.8 Intake and Output for Last 24 Hours 08/25/20 08/26/20 08/27/20 23:59 23:59 23:59 Intake Total 700 / 700 120 / 120 Balance 700 / 700 120 / 120 General: Awake, Alert, Oriented x 3, Cooperative, No Acute Distress HEENT: Atraumatic, Normocephalic, PERRL, EOMI, Sclera Non Icteric Neck: Supple, Good ROM, No JVD Lungs: Diminished [place] Bases Cardiovascular: Regular Rhythm, Normal S1, Normal S2 Abdomen: Bowel Sounds Present, Soft Extremities: No edema Neurological: No Focal Motor or Sensory Deficit Psych/Mental Status: Appropriate 08/26/20 16:05: WBC 8.8, RBC 3.58 L, Hgb 10.9 L, Hct 32.5 L, MCV 90.8, MCH 30.4, MCHC 33.5, Plt Count 217, MPV 11.1, Immature Gran % (Auto) 0.200, Neut % (Auto) 75.6 H, Lymph % (Auto) 12.3 L, [place] % (Auto) 6.5, Eos % (Auto) 4.8, Baso % (Auto) 0.6, Absolute Neuts (auto) 6.7, Nucleated RBC % 0 08/26/20 16:05: Sodium 137, Potassium 3.2 L, Chloride 98, Carbon Dioxide 30.0, Anion Gap 9, BUN 21 H, Creatinine 3.83 H, Est GFR (MDRD) Af Amer 21 L, Est GFR (MDRD) Non-Af 17 L, BUN/Creatinine Ratio 5.5 L, Glucose 119 H, Calcium 8.4 L, Troponin I < 0.015 08/26/20 16:05: Magnesium 2.3 08/26/20 19:05: Troponin I 0.071 H 08/26/20 22:12: PT 14.6, INR 1.2 08/26/20 22:12: Troponin I 0.150 H 08/27/20 05:30: WBC 10.8, RBC 3.02 L, Hgb 9.2 L, Hct 27.9 L, MCV 92.4, MCH 30.5, MCHC 33.0, Plt Count 208, MPV 10.7, Immature Gran % (Auto) 0.400, Neut % (Auto) 77.5 H, Lymph % (Auto) 11.1 L, [place] % (Auto) 8.3, Eos % (Auto) 2.2, Baso % (Auto) 0.5, Absolute Neuts (auto) 8.3 H, Nucleated RBC % 0 08/27/20 05:30: Sodium 135 L, Potassium 4.5, Chloride 99, Carbon Dioxide 30.0, Anion Gap 6, BUN 30 H, Creatinine 5.49 H, Est GFR (MDRD) Af Amer 14 L, Est GFR (MDRD) Non-Af 11 L, BUN/Creatinine Ratio 5.5 L, Glucose 147 H, Calcium 8.4 L Rhythm: Sinus rhythm EKG: Sinus rhythm/sinus tachycardia; PACs; left axis deviation; poor R wave progression CXR: FINDINGS: Inspiratory volumes are low. There are ill-defined regional low density pulmonary opacities which can be atelectasis or due to bronchial or viral disease. There is no pneumothorax, cardiac megaly, pulmonary edema or pleural effusions. Vascular catheter has been removed. Osseous structures are intact. RAD/Chest 1 View (Portable) IMPRESSION: Ill-defined opacities, differential diagnosis is atelectasis versus pneumonia or bronchial disease. Refer to more definitive imaging. Electronically Signed: Sandi Camacho MD at 17:[address] Scan: FINDINGS: Examination is technically suboptimal due to poor contrast enhancement of the pulmonary artery and patient''s large body habitus and suboptimal technique resulting in severe image noise elevation. Attenuation in the pulmonary artery is 152 HU versus guidelines recommended greater than 258 HU. Some diagnostic information is available. Main, proximal right and left pulmonary arteries are clear. Lobar and segmental branches cannot be reliably evaluated. Pulmonary attenuation is heterogeneously geographically increased with mixed groundglass opacities, a finding due to either pulmonary edema or viral pneumonia or both. There are moderate bilateral pleural effusions with basal atelectasis. Central airways are patent. Mediastinal lymph nodes are increased in number measuring up to 1 cm diffusely. Aorta is normal caliber and intact. Left ventricle is mildly enlarged. Left atrium is moderately enlarged. Pericardium is normal. T9 is compressed with likely internal incompletely healed fracture cleft and approximately 25% loss of height. There is mild posterior cortical retropulsion and moderate thecal sac stenosis at T9-T10. CT/CTA Chest W/WO Contrast IMPRESSION: 1. Technically limited study. 2. No large central pulmonary embolism in the main, right or left pulmonary arteries. 3. Refer to ultrasonography of the lobectomy venous system for further risk stratification versus repeat study. 4. Moderate bilateral pleural effusions, mild cardiomegaly. 5. Abnormal lung parenchyma diffusely, possibly pulmonary edema and/or superimposed viral pneumonia. Electronically Signed: Sandi Camacho MD at 19:37 EDT Assessment/Plan 1. Non-ST segment elevation FL The patient does have vascular risk factors, symptoms, and objective findings concerning for an underlying acute coronary syndrome. Is unclear whether this may be a type I event versus a type II event from supply demand mismatch brought out by his episode of atrial fibrillation with RVR superimposed upon his underlying chronic renal insufficiency, etc. At present time the patient is being followed noninvasively. He has recommended for further evaluation with diagnostic cardiac catheterization. The procedure and risk were discussed with him. He was agreeable to this approach. 2. Atrial fibrillation The patient had an isolated episode of atrial fibrillation with RVR with spontaneous conversion to sinus rhythm. At the present time he remains in sinus rhythm. He will continue rate control therapy as deemed appropriate. Consideration will have to be given as to whether or not, based upon his one isolated episode, as to whether he is a candidate for long-term systemic oral anticoagulant therapy. 3. Hypertension The patient will continue to have his blood pressure monitored. His medicines can be adjusted as needed. 4. Diabetes mellitus The patient will need to continue medical manage per his primary care physician. 5. End-stage renal disease on chronic hemodialysis on [facility] prerenal transplant schedule The patient states he has undergone cardiovascular evaluation at [facility] with respect to his prerenal transplant status. He states this did include an exercise tolerance test/imaging study. To the best of his knowledge this was negative as he did not require additional cardiac evaluation and/or care. 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 Comment: The patient's case has been discussed and reviewed with the patient and the [facility] emergency department staff. This note was generated using a voice recognition system and there may be incorrect words, spelling or punctuation that were not noted when reviewing the office note prior to saving. Procedure Criteria Procedure Type: Elective COVID Risk Discussion: The surgeon/proceduralist and patient have discussed in detail the risk of exposure to and/or potential harm posed by the COVID-19 virus with having a surgery/procedure at this time versus the risk of delaying the surgery/procedure. It is not possible to know either the risk of delaying the surgery or procedure or chance of getting an infection with perfect accuracy, but a joint decision was made between the patient and the surgeon/proceduralist to proceed at this time with the scheduled surgery/procedure as indicated on the consent form.
--- NOTE | 2020-08-27 10:17 | CL.D_ITS ---
Patient Name: ISABELLA ANDERSON Study Date: 08/27/2020 Performing: Jersey Yost MD Ht: 70.87 inches 180 cm : 1965 Wt: 242.51 lbs 110 kg Age: 55 Gender: male BSA: 2.29 PROCEDURE(S) PERFORMED [id number]/COR CLINICAL PROFILE AND INDICATIONS Indications: ACS <= 24 hrs, Suspected CAD Heart Failure: None Stress/Imaging Stress/Image Study Performed: No Angina Classification Anginal Classification w/in 2 Weeks: CCS IV (symptoms at rest) CAD Presentations: Non-STEMI. CONCLUSIONS Elevated Left Ventricular End Diastolic Pressure [place] Multivessel CAD RECOMMENDATIONS Medical therapy DESCRIPTION OF PROCEDURE The patient arrived to the procedure lab. The risks and benefits of the procedure as well as a full d escription of our services here and current unavailability of surgical backup were fully explained to the patient and/or their significant other prior to the catheterization. The Timeout was completed, verifying the correct patient and procedure. The patient's procedural site was prepped and draped in the usual fashion. Local anesthetic was given subcutaneously to right groin region with Lidocaine 2%. Using a modified Seldinger technique, arterial access was obtained via the right femoral artery, a 4 Fr sheath was inserted Left Coronary Artery selective angiography was performed in multiple views us ing a 4 Fr. JL5 catheter. Right Coronary Artery selective angiography was then performed in multiple views using a 4 Fr. 3DRC catheter. LV to AO pullback pressures were then recorded.The arterial sheath was pulled and manual compression applied until hemostasis is achieved. CORONARY ANGIOGRAPHY DOMINANCE: Right Dominant LEFT HEART ASSESSMENT Left Ventricular Ejection Fraction: Not assessed Elevated Left Ventricular End Diastolic Pressure LVEDP: 28 mmHg LEFT MAIN: Angiographically normal LEFT ANTERIOR DESCENDING ARTERY: Mild luminal irregularities MID LAD: small vessel: 50 - 75 % Stenosis DIAGONAL 2: Proximal - small vessel: 50 - 75 % Stenosis CIRCUMFLEX ARTERY: MID CIRC: Mild luminal irregularities DISTAL CIRC: 50 - 75 % Stenosis RIGHT CORONARY ARTERY: Mild luminal irregularities COMPLICATIONS No Complications PROCEDURE MEDICATIONS Versed 1 mg IV Versed 1 mg IV Oxygen: 2 L/min via nasal cannula SUMMARY OF HEMODYNAMIC DATA Time AIR REST ECG 08:48:18 AO 153/72 (109) SA 09:10:08 LV 164/-13, 28 09:16:57 LV 166/-13, 25 09:17:03 LVp 165/-15, 26 09:17:09 AO 168/73 (113) 09:17:14 Signed By Jersey Yost MD On 08/27/2020 10:17:19 Jersey Yost MD
--- NOTE | 2020-08-27 10:35 | CASEMGMT ---
According to the [facility] website, the following are in-network tertiary facilities: [facility], [place], [facility], [facility], [facility], [facility], [facility], and . Faith DONOHUE CM
--- NOTE | 2020-08-27 10:44 | CASEMGMT ---
Call from Mariana at [facility] and she states pt runs MWF but did not have treatment on Tuesday and when he came in yesterday to run, he was having CP so was sent to ED. Geraldine DONOHUE updated, voices understanding. Faith DONOHUE CM
[2020-08-27] MEDS: amLODIPine 10 MG Tablet PO (11:06)
--- NOTE | 2020-08-27 11:38 | CON.PCM_ITS ---
Consultation - Renal 08/27/20 PCP/ Referring MD: Requesting physician: [] Primary care physician: Marge King, LEONOR Reason for Consultation:: ESRD on dialysis - History of Present Illness History of Present Illness: The patient is a 55 year old M with ESRD on HD MWF, dialyzed yesterday full treatment due to illness on Tuesday from second COVID vaccination presents to [facility] via squad from dialysis center for right sided chest pain. He denies prior history of heart disease. He has diabetes on dialysis since Apr 2019. Primary automotive detailer Dr. Welch from [place]. He is on kidney transplant list at [facility] for 8 months now. Had stress test in the past for transplant workup. He had CTA to r/o PE yesterday and had heart cath done this morning that showed small vessel disease that is medically managed. He is due for dialysis today. FH significant for diabetes but no renal failure. - Allergies Allergies: Allergies No Known Allergies Allergy (Verified 03/23/20 13:20) - Current Medications Current Medications: Current Medications Acetaminophen (Acetaminophen 325 Mg Tablet) 650 mg PO Q6H PRN PRN PRN Reason: Pain Score 1-10/Temp > 100.7 F Last Admin: 08/27/20 00:18 Dose: 650 mg Documented by: Amlodipine Besylate (Amlodipine 10 Mg Tablet) 10 mg PO DAILY [facility] Last Admin: 08/27/20 11:06 Dose: 10 mg Documented by: Aspirin (Aspirin 81 Mg Tab.Chew) 81 mg PO DAILY@0800 [facility] Last Admin: 08/27/20 06:18 Dose: 81 mg Documented by: Atorvastatin Calcium (Atorvastatin Calcium 40 Mg Tablet) 40 mg PO QHS [facility] Heparin Sodium (Porcine) (Heparin Injection (Vial) 5,000 Unit/Ml Vial) 5,000 unit SC Q12 [facility] Last Admin: 08/26/20 23:34 Dose: 5,000 unit Documented by: Hydralazine HCl (Hydralazine 20 Mg/Ml Vial) 10 mg IV Q6H PRN PRN PRN Reason: for SBP>160 Sodium Chloride () 1,000 mls @ 0 mls/hr IV .Q0M [facility] Insulin Human NPH (Insulin Nph Human 100 Units/Ml Pen) 0 units SC BIDCM [facility]; Protocol Last Admin: 08/27/20 07:59 Dose: Not Given Documented by: Levothyroxine Sodium (Levothyroxine 75 Mcg Tablet) 75 mcg PO DAILY@0600 [facility] Last Admin: 08/27/20 06:19 Dose: 75 mcg Documented by: Metoprolol Tartrate (Metoprolol Tartrate 25 Mg Tablet) 25 mg PO BID [facility] Nitroglycerin (Nitroglycerin (Inpatient Use) 0.4 Mg Tab.Subl) 0.4 mg SL Q5M PRN PRN Reason: CHEST PAIN Ondansetron HCl (Ondansetron 4 Mg/2 Ml Vial) 4 mg IV Q8H PRN PRN PRN Reason: NAUSEA/VOMITING Pantoprazole Sodium (Pantoprazole Sodium 20 Mg Tablet) 20 mg PO DAILY PRN PRN PRN Reason: GERD Senna/Docusate Sodium (Senna/Docusate Sodium 1 Tablet) 2 tablet PO BID PRN PRN PRN Reason: Constipation Sodium Chloride (0.9% Saline Lock 10 Ml Syringe) 10 - 40 ml IV UD PRN PRN Reason: SALINE FLUSH Zolpidem Tartrate (Zolpidem Tartrate 5 Mg Tablet) 5 mg PO QHS PRN PRN PRN Reason: INSOMNIA - Past Medical History Past Medical History (Chronic Problems): Chronic Problems (Last Updated 08/27/20 @ 12:00 by Casi Lee) Atherosclerotic heart disease of [place] coronary artery without angina pectoris (Chronic) Hypothyroidism (Chronic) Arterial steal syndrome (Chronic) Chronic renal failure, stage 5 (Chronic) Diabetes (Chronic) Hypertension (Chronic) Crohn's disease (Chronic) - Past Surgical History Surgical History: tonsillectomy, - - Right hemicolectomy due to Crohn's disease 15 years ago - Social History Smoking Status: Former smoker Alcohol: None Drugs: None - Family History Maternal Family History: Family History (Last Reviewed 08/26/20 @ 21:29 by LEONOR Baum) Father Diabetes Heart disease Hypertension History Items: - Paternal Family History: Family History (Last Reviewed 08/26/20 @ 21:29 by LEONOR Baum) Father Diabetes Heart disease Hypertension History Items: Diabetes, Heart Disease, - - His father was blind in one eye. Review of Systems Constitutional: Denies: Anorexia, Chills, Fever, Weakness Eyes: Reports: - - retinopathy with decreased vision HEENT: Denies: Head Aches Cardiovascular: Reports: Chest Pain. Denies: Edema, Palpitations, Syncope Respiratory: Denies: Cough, Shortness of Breath Gastrointestinal: Denies: Abdominal Pain, Nausea, Vomiting Skin: Denies: Rash Neurological: Denies: Tremor, Seizures Psychiatric: Denies: Anxiety, Depression Hematologic/ Lymphatic: Reports: Anemia Patient Problems: Active and Suspected Problems (Last Updated 08/27/20 @ 12:00 by Casi Lee) NSTEMI (non-ST elevated myocardial infarction) (Acute) Atrial fibrillation (Acute) ESRD (end stage renal disease) on dialysis (Acute) Chest pain (Acute) Hypokalemia (Acute) - Physical Exam Vitals/I&O's: Vital Signs Temp Pulse Resp BP Pulse Ox 98.8 F 84 18 160/78 H 97 08/27/20 10:00 08/27/20 11:00 08/27/20 11:00 08/27/20 11:00 08/27/20 11:00 Oxygen Delivery Method Room Air Weight: 110 kg Body Mass Index (BMI) 33.8 Intake and Output for Last 24 Hours 08/25/20 08/26/20 08/27/20 23:59 23:59 23:59 Intake Total 700 / 700 240 / 240 Output Total 0 / 0 Balance 700 / 700 240 / 240 General: Alert, Oriented x3, Cooperative, No apparent distress Lungs: Clear to auscultation Cardiovascular: Regular rate Abdomen: Bowel Sounds Present, Soft, Non Tender, Non-Distended Extremities: No edema, - - AVF left upper arm with thrill, bruit Skin: No rashes Musculoskeletal: No Muscle Wasting Neurological: Cranial nerves II-XII grossly intact Psych/Mental Status: Normal Affect, Appropriate, Alert and oriented to time, place, person, mood and affect Laboratory Results 08/26/20 16:05: WBC 8.8, RBC 3.58 L, Hgb 10.9 L, Hct 32.5 L, MCV 90.8, MCH 30.4, MCHC 33.5, RDW Std Deviation 43.4, RDW Coeff of [place] 13.1, Plt Count 217, MPV 11.1, Immature Gran % (Auto) 0.200, Neut % (Auto) 75.6 H, Lymph % (Auto) 12.3 L, [place] % (Auto) 6.5, Eos % (Auto) 4.8, Baso % (Auto) 0.6, Absolute Neuts (auto) 6.7, Absolute Lymphs (auto) 1.08, Nucleated RBC % 0 08/26/20 16:05: Sodium 137, Potassium 3.2 L, Chloride 98, Carbon Dioxide 30.0, Anion Gap 9, BUN 21 H, Creatinine 3.83 H, Estim Creat Clear Calc 22.66, Est GFR (MDRD) Af Amer 21 L, Est GFR (MDRD) Non-Af 17 L, BUN/Creatinine Ratio 5.5 L, Glucose 119 H, Calcium 8.4 L, Troponin I < 0.015, TSH 62.70 H 08/26/20 16:05: Magnesium 2.3, Free T4 1.21 08/26/20 18:07: COVID-19 (RICK) Not Detected 08/26/20 18:10: Procalcitonin 1.14 H 08/26/20 19:05: Troponin I 0.071 H 08/26/20 22:12: PT 14.6, INR 1.2 08/26/20 22:12: Thyroxine (T4) 8.6, Free T3 pg/dL 1.5 L 08/26/20 22:12: Troponin I 0.150 H 08/27/20 05:30: WBC 10.8, RBC 3.02 L, Hgb 9.2 L, Hct 27.9 L, MCV 92.4, MCH 30.5, MCHC 33.0, RDW Std Deviation 43.8, RDW Coeff of [place] 13.2, Plt Count 208, MPV 10.7, Immature Gran % (Auto) 0.400, Neut % (Auto) 77.5 H, Lymph % (Auto) 11.1 L, [place] % (Auto) 8.3, Eos % (Auto) 2.2, Baso % (Auto) 0.5, Absolute Neuts (auto) 8.3 H, Absolute Lymphs (auto) 1.19, Nucleated RBC % 0 08/27/20 05:30: Sodium 135 L, Potassium 4.5, Chloride 99, Carbon Dioxide 30.0, Anion Gap 6, BUN 30 H, Creatinine 5.49 H, Estim Creat Clear Calc 15.81, Est GFR (MDRD) Af Amer 14 L, Est GFR (MDRD) Non-Af 11 L, BUN/Creatinine Ratio 5.5 L, Glucose 147 H, Calcium 8.4 L Clinical Impression(s) from Imaging Studies Chest X-Ray 08/26/20 17:30 IMPRESSION: Ill-defined opacities, differential diagnosis is atelectasis versus pneumonia or bronchial disease. Refer to more definitive imaging. Electronically Signed: Sandi Camacho MD at 17:48 EDT Tel , Service support , Chest CTA 08/26/20 17:56 IMPRESSION: 1. Technically limited study. 2. No large central pulmonary embolism in the main, right or left pulmonary arteries. 3. Refer to ultrasonography of the lobectomy venous system for further risk stratification versus repeat study. 4. Moderate bilateral pleural effusions, mild cardiomegaly. 5. Abnormal lung parenchyma diffusely, possibly pulmonary edema and/or superimposed viral pneumonia. Electronically Signed: Sandi Camacho MD at 19:37 EDT Tel , Service support , Current Medications Acetaminophen (Acetaminophen 325 Mg Tablet) 650 mg PO Q6H PRN PRN PRN Reason: Pain Score 1-10/Temp > 100.7 F Last Admin: 08/27/20 00:18 Dose: 650 mg Documented by: Amlodipine Besylate (Amlodipine 10 Mg Tablet) 10 mg PO DAILY [facility] Last Admin: 08/27/20 11:06 Dose: 10 mg Documented by: Aspirin (Aspirin 81 Mg Tab.Chew) 81 mg PO DAILY@0800 [facility] Last Admin: 08/27/20 06:18 Dose: 81 mg Documented by: Atorvastatin Calcium (Atorvastatin Calcium 40 Mg Tablet) 40 mg PO QHS [facility] Heparin Sodium (Porcine) (Heparin Injection (Vial) 5,000 Unit/Ml Vial) 5,000 unit SC Q12 [facility] Last Admin: 08/26/20 23:34 Dose: 5,000 unit Documented by: Hydralazine HCl (Hydralazine 20 Mg/Ml Vial) 10 mg IV Q6H PRN PRN PRN Reason: for SBP>160 Sodium Chloride () 1,000 mls @ 0 mls/hr IV .Q0M [facility] Insulin Human NPH (Insulin Nph Human 100 Units/Ml Pen) [facility] Last Admin: 08/27/20 07:59 Dose: Not Given Documented by: Levothyroxine Sodium (Levothyroxine 75 Mcg Tablet) 75 mcg PO DAILY@0600 [facility] Last Admin: 08/27/20 06:19 Dose: 75 mcg Documented by: Metoprolol Tartrate (Metoprolol Tartrate 25 Mg Tablet) 25 mg PO BID [facility] Nitroglycerin (Nitroglycerin (Inpatient Use) 0.4 Mg Tab.Subl) 0.4 mg SL Q5M PRN PRN Reason: CHEST PAIN Ondansetron HCl (Ondansetron 4 Mg/2 Ml Vial) 4 mg IV Q8H PRN PRN PRN Reason: NAUSEA/VOMITING Pantoprazole Sodium (Pantoprazole Sodium 20 Mg Tablet) 20 mg PO DAILY PRN PRN PRN Reason: GERD Senna/Docusate Sodium (Senna/Docusate Sodium 1 Tablet) 2 tablet PO BID PRN PRN PRN Reason: Constipation Sodium Chloride (0.9% Saline Lock 10 Ml Syringe) 10 - 40 ml IV UD PRN PRN Reason: SALINE FLUSH Zolpidem Tartrate (Zolpidem Tartrate 5 Mg Tablet) 5 mg PO QHS PRN PRN PRN Reason: INSOMNIA Assessment/Plan All Active Problems (Last Updated 08/27/20 @ 12:00 by Casi Lee) NSTEMI (non-ST elevated myocardial infarction) (Acute) Atrial fibrillation (Acute) ESRD (end stage renal disease) on dialysis (Acute) Chest pain (Acute) Hypokalemia (Acute) 1. ESRD HD today and MWF 2. DM2 resume home meds 3. HTN resume BP meds, fluid removal on dialysis to EDW 4. NSTEMI, CAD s/p cath 5. Anemia PHILL
--- NOTE | 2020-08-27 15:19 | CASEMGMT ---
RN received a call from the [facility] doing patient's echo. Apparently patient said something along the lines of how long would it take to bleed out if an artery is bleeding. The tech was concerned patient was thinking of harming himself. RN said patient has been a jokester all day so he was probably joking. JOSÉ ANTONIO went to patient's room. Introduced self and role at [facility]. JOSÉ ANTONIO asked him about the question he had about how long it would take to bleed out. He started laughing. JOSÉ ANTONIO told him SW needs to make sure he is okay. He said he is not thinking of harming or killing himself. He said he has too much fishing and playing with puppies to do. He said it was and educational or learning moment question. He said the other day he was at dialysis and fell asleep. When he woke up the needle fell out of his fistula and blood was squirting out. He quickly grabbed his blanket and covered it. He didn't understand why someone would think he thought he was talking about harming himself. JOSÉ ANTONIO told him he has to be careful what he says. He may not mean anything by it, but those who don't know him may not understand his humor. JOSÉ ANTONIO asked him about the puppies he was referring to. His face lit up and he asked for his phone and the packaging design engineer. He wanted to show SW a picture of his miniature Arlenenauzer. He thanked JOSÉ ANTONIO for checking on him, but he is fine. JOSÉ ANTONIO let RN know patient meant no harm in his comment. Nicole ESCUDERO
--- NOTE | 2020-08-27 16:40 | PCM.PN.HOSP ---
Patient Problems: Active and Suspected Problems (Last Updated 08/27/20 @ 12:00 by Casi Lee) NSTEMI (non-ST elevated myocardial infarction) (Acute) Atrial fibrillation (Acute) ESRD (end stage renal disease) on dialysis (Acute) Chest pain (Acute) Hypokalemia (Acute) Reason for Visit: Follow-up for chest pain/non-STEMI. Patient is on hemodialysis and is on kidney transplant list Objective: Seen and examined. Patient is back in the room after right femoral artery access cardiac cath. Patient is to be dialyzed today. No chest pain or shortness of breath. On physical exam General: Alert, Oriented x3, Cooperative HEENT: Atraumatic, PERRLA, EOMI, Normocephalic Oral: No Gingival or Mucosal Lesions/ Ulcerations Neck: Supple, No JVD, Negative Carotid Bruits Lungs: Air entry diminished in bilateral lung bases. No crepitation/rhonchi Cardiovascular: Regular rate, Regular Rhythm, Normal S1, Normal S2, No murmurs Abdomen: Bowel Sounds Present, Soft, Non Tender, Non-Distended : Dialysis dependent. No renal angle tenderness. No suprapubic tenderness. Extremities: No right femoral artery hematoma or bleeding at access site. No edema, Capillary Refill Less than 3 Seconds Skin: No rashes, No breakdown Musculoskeletal: No Tenderness to Palpation of Joints or Extremities Neurological: Cranial nerves II-XII grossly intact, Deep Tendon Reflexes 2+/4 and Symmetrical, Neuro grossly intact Psych/Mental Status: Normal Affect, Appropriate. Vitals/I&O's: Vital Signs Temp Pulse Resp BP Pulse Ox 98.6 F 94 16 162/67 H 98 08/27/20 11:55 08/27/20 15:00 08/27/20 13:36 08/27/20 12:00 08/27/20 13:36 Oxygen Delivery Method Room Air Weight: 242 lb 8.136 oz Body Mass Index (BMI) 33.8 Intake and Output for Last 24 Hours 08/25/20 08/26/20 08/27/20 23:59 23:59 23:59 Intake Total 700 / 700 240 / 240 Output Total 0 / 0 Balance 700 / 700 240 / 240 Laboratory Results 08/26/20 16:05: WBC 8.8, RBC 3.58 L, Hgb 10.9 L, Hct 32.5 L, MCV 90.8, MCH 30.4, MCHC 33.5, RDW Std Deviation 43.4, RDW Coeff of [place] 13.1, Plt Count 217, MPV 11.1, Immature Gran % (Auto) 0.200, Neut % (Auto) 75.6 H, Lymph % (Auto) 12.3 L, [place] % (Auto) 6.5, Eos % (Auto) 4.8, Baso % (Auto) 0.6, Absolute Neuts (auto) 6.7, Absolute Lymphs (auto) 1.08, Nucleated RBC % 0 08/26/20 16:05: Sodium 137, Potassium 3.2 L, Chloride 98, Carbon Dioxide 30.0, Anion Gap 9, BUN 21 H, Creatinine 3.83 H, Estim Creat Clear Calc 22.66, Est GFR (MDRD) Af Amer 21 L, Est GFR (MDRD) Non-Af 17 L, BUN/Creatinine Ratio 5.5 L, Glucose 119 H, Calcium 8.4 L, Troponin I < 0.015, TSH 62.70 H 08/26/20 16:05: Magnesium 2.3, Free T4 1.21 08/26/20 18:07: COVID-19 ([facility]ICK) Not Detected 08/26/20 18:10: Procalcitonin 1.14 H 08/26/20 19:05: Troponin I 0.071 H 08/26/20 22:12: PT 14.6, INR 1.2 08/26/20 22:12: Thyroxine (T4) 8.6, Free T3 pg/dL 1.5 L 08/26/20 22:12: Troponin I 0.150 H 08/27/20 05:30: WBC 10.8, RBC 3.02 L, Hgb 9.2 L, Hct 27.9 L, MCV 92.4, MCH 30.5, MCHC 33.0, RDW Std Deviation 43.8, RDW Coeff of [place] 13.2, Plt Count 208, MPV 10.7, Immature Gran % (Auto) 0.400, Neut % (Auto) 77.5 H, Lymph % (Auto) 11.1 L, [place] % (Auto) 8.3, Eos % (Auto) 2.2, Baso % (Auto) 0.5, Absolute Neuts (auto) 8.3 H, Absolute Lymphs (auto) 1.19, Nucleated RBC % 0 08/27/20 05:30: Sodium 135 L, Potassium 4.5, Chloride 99, Carbon Dioxide 30.0, Anion Gap 6, BUN 30 H, Creatinine 5.49 H, Estim Creat Clear Calc 15.81, Est GFR (MDRD) Af Amer 14 L, Est GFR (MDRD) Non-Af 11 L, BUN/Creatinine Ratio 5.5 L, Glucose 147 H, Calcium 8.4 L Current Medications Acetaminophen (Acetaminophen 325 Mg Tablet) 650 mg PO Q6H PRN PRN PRN Reason: Pain Score 1-10/Temp > 100.7 F Last Admin: 08/27/20 15:14 Dose: 650 mg Documented by: Amlodipine Besylate (Amlodipine 10 Mg Tablet) 10 mg PO DAILY [facility] Last Admin: 08/27/20 11:06 Dose: 10 mg Documented by: Aspirin (Aspirin 81 Mg Tab.Chew) 81 mg PO DAILY@0800 [facility] Last Admin: 08/27/20 06:18 Dose: 81 mg Documented by: Atorvastatin Calcium (Atorvastatin Calcium 40 Mg Tablet) 40 mg PO QHS [facility] Heparin Sodium (Porcine) (Heparin Injection (Vial) 5,000 Unit/Ml Vial) 5,000 unit SC Q12 [facility] Last Admin: 08/27/20 12:22 Dose: Not Given Documented by: Hydralazine HCl (Hydralazine 20 Mg/Ml Vial) 10 mg IV Q6H PRN PRN PRN Reason: for SBP>160 Sodium Chloride () 1,000 mls @ 0 mls/hr IV .Q0M [facility] Insulin Human NPH (Insulin Nph Human 100 Units/Ml Pen) 0 units SC BIDCM [facility]; Protocol Last Admin: 08/27/20 07:59 Dose: Not Given Documented by: Levothyroxine Sodium (Levothyroxine 75 Mcg Tablet) 75 mcg PO DAILY@0600 [facility] Last Admin: 08/27/20 06:19 Dose: 75 mcg Documented by: Metoprolol Tartrate (Metoprolol Tartrate 25 Mg Tablet) 25 mg PO BID [facility] Nitroglycerin (Nitroglycerin (Inpatient Use) 0.4 Mg Tab.Subl) 0.4 mg SL Q5M PRN PRN Reason: CHEST PAIN Ondansetron HCl (Ondansetron 4 Mg/2 Ml Vial) 4 mg IV Q8H PRN PRN PRN Reason: NAUSEA/VOMITING Pantoprazole Sodium (Pantoprazole Sodium 20 Mg Tablet) 20 mg PO DAILY PRN PRN PRN Reason: GERD Senna/Docusate Sodium (Senna/Docusate Sodium 1 Tablet) 2 tablet PO BID PRN PRN PRN Reason: Constipation Sodium Chloride (0.9% Saline Lock 10 Ml Syringe) 10 - 40 ml IV UD PRN PRN Reason: SALINE FLUSH Zolpidem Tartrate (Zolpidem Tartrate 5 Mg Tablet) 5 mg PO QHS PRN PRN PRN Reason: INSOMNIA STROKE Vital Signs/Narrative: Vital Signs Pulse Resp Pulse Ox 08/27/20 15:00 94 08/27/20 13:36 88 16 98 Medical Necessity - Tobacco Use Smoking Status: Former smoker Tobacco Use: Non-smoker Assessment/Plan All Active Problems (Last Updated 08/27/20 @ 12:00 by Casi Lee) NSTEMI (non-ST elevated myocardial infarction) (Acute) Atrial fibrillation (Acute) ESRD (end stage renal disease) on dialysis (Acute) Chest pain (Acute) Hypokalemia (Acute) #1 Non-STEMI: Telemetry in PCU. Initial EKG showed A. fib with RVR by EMS. Subsequently patient spontaneously converted to sinus rhythm in ER. Troponin enzymes elevated. Patient had cardiac cath in the morning. Cardiac cath reported elevated LVEDP. [place] multivessel coronary artery disease. Mid LAD small vessel 50 to 75%, proximal D2 small vessel 50 to 75%. Distal circumflex 50 to 75% stenosis. Internet Security Specialist recommended to discuss with the transplant team in the ICU to decide on the recommendation for PCI. In meantime, patient is on medical management with baby aspirin, metoprolol, atorvastatin and amlodipine. CTA was negative for PE. Moderate bilateral pleural effusion. 2D echo EF 60%. LA mildly enlarged. Mild pulmonary hypertension/fluid overload due to missed hemodialysis consistent with acute on chronic diastolic heart failure: CT chest showed pulmonary edema. Patient does not have shortness of breath or crackles in the morning. #2 hypokalemia: Patient underwent dialysis today which likely the reason. Patient had potassium replacement. Repeat K4.5. #3 end-stage renal disease on hemodialysis: [employer] Back Tender Dr. Mancini consulted. Patient on hemodialysis Tuesday. On hemodialysis after cardiac cath and CT angiogram. #4 hypothyroidism: Patient has been on levothyroxine. TSH is very high. We will resume levothyroxine at 75 mcg daily. Patient will need repeat TSH in 2 weeks. #5 Diabetes mellitus type 2, possible transient A. fib and Crohn's disease: Glucose is is in acceptable limit. other chronic medical problems: Stable, continue current medications as above. Clinical Impression(s) from Imaging Studies Chest X-Ray 08/26/20 17:30 IMPRESSION: Ill-defined opacities, differential diagnosis is atelectasis versus pneumonia or bronchial disease. Refer to more definitive imaging. Electronically Signed: Sandi Camacho MD at 17:48 EDT Tel , Service support , Chest CTA 08/26/20 17:56 IMPRESSION: 1. Technically limited study. 2. No large central pulmonary embolism in the main, right or left pulmonary arteries. 3. Refer to ultrasonography of the lobectomy venous system for further risk stratification versus repeat study. 4. Moderate bilateral pleural effusions, mild cardiomegaly. 5. Abnormal lung parenchyma diffusely, possibly pulmonary edema and/or superimposed viral pneumonia. Echocardiogram 08/26/20 21:49 Interpretation Summary The study was technically difficult. Contrast injection was performed. Left ventricular systolic function is normal. The estimated ejection fraction is 60 %. The left atrium is mildly enlarged. Trivial mitral valve insufficiency. Trivial tricuspid valve insufficiency. Unable to estimate RV systolic pressure/pulmonary artery pressure due to technically difficult study. No evidence for diastolic dysfunction. Inpatient E&M: 84501 Subs Hosp L2
[2020-08-27] MEDS: Lidocaine/Prilocaine HCl 5 GM Tube TOPICAL (16:44)
--- NOTE | 2020-08-27 20:00 | DIALYSIS ---
Hemodialysis x 3.5 hrs, -700ml UF off, stable t/o. Hemostasis obtained and dressing applied. report to Bere DONOHUE
[2020-08-27] MEDS: Metoprolol Tartrate 25 MG Tablet PO (21:24)
[2020-08-27] MEDS: Atorvastatin Calcium 40 MG Tablet PO (21:24)
[2020-08-27] MEDS: Heparin Injection (Vial) 5,000 UNIT/ML VIAL 5000 UNIT SC (21:25)
[2020-08-28 03:00] VITALS: PULSE 86
[2020-08-28 03:15] VITALS: BP 158/87; PULSE 87; RESP 18; TEMP 36.9; O2SAT 95
[2020-08-28] MEDS: Acetaminophen 325 MG Tablet 650 MG PO ×2 (03:22→10:06)
[2020-08-28] MEDS: Levothyroxine 75 MCG Tablet PO (06:15)
[2020-08-28 07:00] VITALS: PULSE 87
[2020-08-28 07:38] VITALS: O2SAT 98
[2020-08-28] MEDS: Aspirin 81 MG TAB.CHEW PO (07:45)
[2020-08-28 08:29] VITALS: BP 148/80; PULSE 88; RESP 18; TEMP 36.8; O2SAT 97
[2020-08-28 08:30] VITALS: BP 148/80; PULSE 88
[2020-08-28] MEDS: Metoprolol Tartrate 25 MG Tablet PO (08:30)
[2020-08-28] MEDS: amLODIPine 10 MG Tablet PO (08:31)
[2020-08-28] MEDS: Insulin NPH Human 100 UNITS/ML PEN SC (08:47)
--- NOTE | 2020-08-28 10:12 | PCM.PN.CARD ---
Subjectve: The patient is awake and alert. He denies any ongoing palpitations or rapid heart rates. He denies any ongoing chest discomfort. Objective: Vital Signs Temp Pulse Resp BP Pulse Ox 98.3 F 88 18 148/80 H 97 08/28/20 08:29 08/28/20 08:30 08/28/20 08:29 08/28/20 08:30 08/28/20 08:29 Oxygen Delivery Method Room Air Weight: 242 lb 8.136 oz Body Mass Index (BMI) 33.8 Intake and Output for Last 24 Hours 08/26/20 08/27/20 08/28/20 23:59 23:59 23:59 Intake Total 700 / 700 615 / 615 50 / 50 Output Total 1400 / 1400 Balance 700 / 700 -785 / -785 50 / 50 General: Awake, Alert, Oriented x 3, Cooperative, No Acute Distress HEENT: Atraumatic, Normocephalic, PERRL, EOMI, Sclera Non Icteric Neck: Supple, Good ROM, No JVD Lungs: Clear to auscultation Cardiovascular: Regular Rhythm, Normal S1, Normal S2 Vascular: Normal Femoral Pulses Abdomen: Bowel Sounds Present, Soft Extremities: No edema Neurological: No Focal Motor or Sensory Deficit Psych/Mental Status: Appropriate Rhythm: Sinus rhythm Medical Necessity - Tobacco Use Smoking Status: Former smoker Tobacco Use: Non-smoker Assessment/Plan 1. Non-ST segment elevation PA The patient did, by cardiac enzyme, her findings compatible with a non-ST segment elevation PA. This may be a type II event secondary to his atrial fibrillation superimposed upon his underlying CAD status. At the moment he will continue medical management. He will be considered for future follow-up of his CAD status with an exercise tolerance test/imaging study to further evaluate his coronary physiology for the need for additional therapy such as catheter-based revascularization versus surgical based revascularization above and beyond continue medical management. 2. CAD He was found to have CAD. Based upon the consensus of the cardiovascular team it was recommended he continue medical management. He did not proceed immediately with revascularization therapy. He will be followed and evaluated as noted. 3. Atrial fibrillation The patient had an isolated episode of atrial fibrillation with RVR with spontaneous conversion to sinus rhythm. At the present time he will initiate anticoagulant therapy with warfarin/Coumadin based upon his underlying marked renal insufficiency and hemodialysis. Depending upon his clinical course consideration might be given as to whether this is short-term or long-term therapy. 4. Hypertension The patient will continue to have his blood pressure monitored. His medicines can be adjusted as needed. 5. Diabetes mellitus The patient will need to continue medical manage per his primary care physician. 6. End-stage renal disease on chronic hemodialysis on [facility] prerenal transplant schedule Comment: The patient's case has been discussed and reviewed with the patient. He was asked to provide his [facility] renal transplant contact information to his local physicians in order that his recent cardiovascular information be transmitted to them for continuity of care purposes. Case was also discussed and reviewed with Dr. Sauceda. This note was generated using a voice recognition system and there may be incorrect words, spelling or punctuation that were not noted when reviewing the office note prior to saving.
--- NOTE | 2020-08-28 10:27 | DCINST_ITS ---
- Discharge Diagnoses Current Active Problems: Current Active and Chronic Problems (Last Updated 08/27/20 @ 12:00 by Casi Lee) NSTEMI (non-ST elevated myocardial infarction) (Acute) Atrial fibrillation (Acute) ESRD (end stage renal disease) on dialysis (Acute) Chest pain (Acute) Hypothyroidism (Chronic) Hypokalemia (Acute) Arterial steal syndrome (Chronic) Chronic renal failure, stage 5 (Chronic) Diabetes (Chronic) Hypertension (Chronic) Crohn's disease (Chronic) You will use the following diet at home:: Calorie/Carbohydrate Controlled (specify 1200, 1400, etc) - 1800 ADA diet, Cardiac Your food should be the consistency of: Regular Discharge Activity: May Not Drive Weight Bearing Status: Weight bearing as tolerated Call your doctor if you observe: Fever of 101 or Higher, Numbness or Tingling, Change in Color, Inability to urinate, Inability to have a bowel movement, Shortness of breath, Dizziness, Fainting spells, Chest pain, Prolonged hiccoughing, Increased palpitations (irregular heartbeat), Calf discomfort, Uncontrolled pain Additional Instructions: Follow-up with kidney transplant center [facility]. Follow-up with your tire installer. Allergies/Adverse Reactions: Allergies No Known Allergies Allergy (Verified 03/23/20 13:20) Medications to take at Discharge Esomeprazole Magnesium [Nexium 24Hr] 20 mg PO PRN PRN 05/06/19 Amlodipine [Norvasc] 10 mg PO DAILY #30 tab 05/11/19 levothyroxine 25 mcg tablet 50 mcg PO DAILY tab 07/13/19 Fluticasone 0.05% [Flonase Nasal [place]] 1 spray NASAL DAILY 03/05/20 Lactulose [Constulose] 10 gm PO PRN PRN 03/05/20 Acetaminophen [Tylenol] 500 mg PO Q6H PRN PRN 08/26/20 Insulin NPH Human Isophane [Humulin N] See Protocol SQ PRN PRN 08/26/20 Aspirin [Aspirin, Baby] 81 mg PO DAILY@0800 #90 tab.chew 08/28/20 Loratadine/Pseudoephedrine [Claritin-D 24 Hour Tablet] 1 each PO DAILY #7 tab.er.24h 08/28/20 Metoprolol Tartrate [Lopressor (beta thania)] 25 mg PO BID #60 tablet 08/28/20 Oxymetazoline HCl [Afrin] 15 ml NS BID #1 spray 08/28/20 Warfarin [Coumadin] 4 mg PO DAILY@1700 #30 tablet 08/28/20 The following prescriptions were given: Oxymetazoline HCl [Afrin] 15 ml NS BID #1 spray Transmission Status: Pending to [facility] Aspirin [Aspirin, Baby] 81 mg PO DAILY@0800 #90 tab.chew Transmission Status: Pending to [facility] Loratadine/Pseudoephedrine [Claritin-D 24 Hour Tablet] 1 each PO DAILY #7 tab.er.24h Transmission Status: Pending to [facility] Warfarin [Coumadin] 4 mg PO DAILY@1700 #30 tablet Transmission Status: Pending to [facility] Metoprolol Tartrate [Lopressor (beta thania)] 25 mg PO BID #60 tablet Transmission Status: Pending to [facility] Primary Care Physician: Marge King COLLECTION SYSTEMS MODELER, COLLECTION SYSTEMS MODELER-C [Primary Care Provider] - Please follow up with your Primary Care Physician in: In 2 weeks Test Results: Test results from this visit will be discussed in further detail at your follow- up appointment, if applicable. Please Follow Up With: Jersey Yost MD When: as scheduled
--- NOTE | 2020-08-28 10:29 | PCM.DC.SUM ---
Discharge Date and Diagnosis - Problem List Patient Problems: Active and Suspected Problems (Last Updated 08/29/20 @ 09:23 by Casi Lee) NSTEMI (non-ST elevated myocardial infarction) (Acute) Atrial fibrillation (Acute) ESRD (end stage renal disease) on dialysis (Acute) Chest pain (Acute) Hypokalemia (Acute) Date of Admission: 08/26/20 Date of Discharge: 08/28/20 - Primary Discharge Diagnosis Acute Problems: Active Problems (Last Updated 08/27/20 @ 12:00 by Casi Lee) NSTEMI (non-ST elevated myocardial infarction) (Acute) Atrial fibrillation (Acute) ESRD (end stage renal disease) on dialysis (Acute) Chest pain (Acute) Hypokalemia (Acute) - Secondary Discharge Diagnosis Chronic Problems: Chronic Problems (Last Updated 08/27/20 @ 12:00 by Casi Lee) Atherosclerotic heart disease of [place] coronary artery without angina pectoris (Chronic) Hypothyroidism (Chronic) Arterial steal syndrome (Chronic) Chronic renal failure, stage 5 (Chronic) Diabetes (Chronic) Hypertension (Chronic) Crohn's disease (Chronic) Hospital Course and Treatment Operations: - - Insertion of right internal jugular tunneled dialysis catheter Summary of Care Provided: The patient is a 55 year old M admitted with chest pain with radiation to right arm and neck that is started during dialysis on day of admission in October. Also complained of right arm pain related to blood pressure cuff inflation. #1 Non-STEMI: Telemetry in PCU. Initial EKG showed A. fib with RVR by EMS. Subsequently patient spontaneously converted to sinus rhythm in ER. Troponin enzymes elevated. Patient had cardiac cath in the morning. Cardiac cath reported elevated LVEDP. [place] multivessel coronary artery disease. Mid LAD small vessel 50 to 75%, proximal D2 small vessel 50 to 75%. Distal circumflex 50 to 75% stenosis. Pediatric Sports Medicine Specialist decided for medical management after discussion with the renal transplant team probably the risk of delaying transplant if patient goes on anticoagulant/antiplatelet agent. Cardiac cath report and imagings sent to transplant team in [facility]. patient is on medical management with baby aspirin, metoprolol, atorvastatin and amlodipine. CTA was negative for PE. Moderate bilateral pleural effusion. 2D echo EF 60%. LA mildly enlarged. Patient also had transient A. fib and is on warfarin.Mild pulmonary hypertension/fluid overload due to missed hemodialysis consistent with acute on chronic diastolic heart failure: CT chest showed pulmonary edema. Patient was dialyzed. Next day, patient does not have shortness of breath or features of fluid overload. #2 hypokalemia: Patient underwent dialysis today which likely the reason. Patient had potassium replacement. Repeat K4.5. #3 end-stage renal disease on hemodialysis: English Composition Teacher Dr. Mancini consulted. Patient on hemodialysis Tuesday. On hemodialysis after cardiac cath and CT angiogram. #4 hypothyroidism: Patient has been on levothyroxine. TSH is very high. We will resume levothyroxine at 75 mcg daily. Patient will need repeat TSH in 2 weeks. #5 Diabetes mellitus type 2, possible transient A. fib and Crohn's disease: Glucose is is in acceptable limit. 6. Otitis media most probably due to allergic rhinitis/sinusitis: Patient was given prescription of Claritin-D and oxymetazoline nasal spray for 1 week. Follow-up with PCP. Discharge medication reconciliation done. Discharge follow-up instructions completed. Discharge process discussed with the patient and all questions were answered to patient's satisfaction. Total time spent, exact 35 minutes on discharge meds reconciliation, examination, coordination of care with nurses and ancillary staff, review of imaging and blood test and discussion with the patient on follow-up instructions Patient Problems: Active and Suspected Problems (Last Updated 08/29/20 @ 09:23 by Casi Lee) NSTEMI (non-ST elevated myocardial infarction) (Acute) Atrial fibrillation (Acute) ESRD (end stage renal disease) on dialysis (Acute) Chest pain (Acute) Hypokalemia (Acute) Objective: Patient complain of ear pain, fleeting in nature from right ear to left ear. It is more right ear. He also has severe nasal congestion, postnasal discharge and sinus congestion. He has history of allergic rhinitis. On physical exam General: Alert, Oriented x3, Cooperative HEENT: On otoscopic exam, retraction of the tympanic membrane, right more than left. Tenderness in right mastoid process and tragus. Mild wax in right ear canal. Nasal mucosa hyperemic. Oral: No Gingival or Mucosal Lesions/ Ulcerations Neck: Supple, No JVD, Negative Carotid Bruits Lungs: Air entry diminished in bilateral lung bases. No crepitation/rhonchi Cardiovascular: Regular rate, Regular Rhythm, Normal S1, Normal S2, No murmurs Abdomen: Bowel Sounds Present, Soft, Non Tender, Non-Distended : Dialysis dependent. No renal angle tenderness. No suprapubic tenderness. Extremities: No right femoral artery hematoma or bleeding at access site. No edema, Capillary Refill Less than 3 Seconds Skin: No rashes, No breakdown Musculoskeletal: No Tenderness to Palpation of Joints or Extremities Neurological: Cranial nerves II-XII grossly intact, Deep Tendon Reflexes 2+/4 and Symmetrical, Neuro grossly intact Psych/Mental Status: Normal Affect, Appropriate. - Physical Exam Vitals/I&O's: Vital Signs Temp Pulse Resp BP Pulse Ox 98.3 F 88 18 148/80 H 97 08/28/20 08:29 08/28/20 08:30 08/28/20 08:29 08/28/20 08:30 08/28/20 08:29 Oxygen Delivery Method Room Air Weight: 242 lb 8.136 oz Body Mass Index (BMI) 33.8 Intake and Output for Last 24 Hours 08/26/20 08/27/20 08/28/20 23:59 23:59 23:59 Intake Total 700 / 700 615 / 615 50 / 50 Output Total 1400 / 1400 Balance 700 / 700 -785 / -785 50 / 50 Current Medications Acetaminophen (Acetaminophen 325 Mg Tablet) 650 mg PO Q6H PRN PRN PRN Reason: Pain Score 1-10/Temp > 100.7 F Last Admin: 08/28/20 10:06 Dose: 650 mg Documented by: Amlodipine Besylate (Amlodipine 10 Mg Tablet) 10 mg PO DAILY [facility] Last Admin: 08/28/20 08:31 Dose: 10 mg Documented by: Aspirin (Aspirin 81 Mg Tab.Chew) 81 mg PO DAILY@0800 [facility] Last Admin: 08/28/20 07:45 Dose: 81 mg Documented by: Atorvastatin Calcium (Atorvastatin Calcium 40 Mg Tablet) 40 mg PO QHS [facility] Last Admin: 08/27/20 21:24 Dose: 40 mg Documented by: Heparin Sodium (Porcine) (Heparin Injection (Vial) 5,000 Unit/Ml Vial) 5,000 unit SC Q12 [facility] Last Admin: 08/28/20 07:45 Dose: Not Given Documented by: Hydralazine HCl (Hydralazine 20 Mg/Ml Vial) 10 mg IV Q6H PRN PRN PRN Reason: for SBP>160 Sodium Chloride () 1,000 mls @ 0 mls/hr IV .Q0M [facility] Insulin Human NPH (Insulin Nph Human 100 Units/Ml Pen) [facility]; Protocol Last Admin: 08/28/20 08:47 Dose: 7.5 u Documented by: Levothyroxine Sodium (Levothyroxine 75 Mcg Tablet) 75 mcg PO DAILY@0600 [facility] Last Admin: 08/28/20 06:15 Dose: 75 mcg Documented by: Metoprolol Tartrate (Metoprolol Tartrate 25 Mg Tablet) 25 mg PO BID [facility] Last Admin: 08/28/20 08:30 Dose: 25 mg Documented by: Nitroglycerin (Nitroglycerin (Inpatient Use) 0.4 Mg Tab.Subl) 0.4 mg SL Q5M PRN PRN Reason: CHEST PAIN Ondansetron HCl (Ondansetron 4 Mg/2 Ml Vial) 4 mg IV Q8H PRN PRN PRN Reason: NAUSEA/VOMITING Pantoprazole Sodium (Pantoprazole Sodium 20 Mg Tablet) 20 mg PO DAILY PRN PRN PRN Reason: GERD Senna/Docusate Sodium (Senna/Docusate Sodium 1 Tablet) 2 tablet PO BID PRN PRN PRN Reason: Constipation Sodium Chloride (0.9% Saline Lock 10 Ml Syringe) 10 - 40 ml IV UD PRN PRN Reason: SALINE FLUSH Warfarin Sodium (Warfarin 4 Mg Tablet) 4 mg PO DAILY@1700 [facility] Zolpidem Tartrate (Zolpidem Tartrate 5 Mg Tablet) 5 mg PO QHS PRN PRN PRN Reason: INSOMNIA Discharge Activity: May Not Drive Weight Bearing Status: Weight bearing as tolerated Call your doctor if you observe: Fever of 101 or Higher, Numbness or Tingling, Change in Color, Inability to urinate, Inability to have a bowel movement, Shortness of breath, Dizziness, Fainting spells, Chest pain, Prolonged hiccoughing, Increased palpitations (irregular heartbeat), Calf discomfort, Uncontrolled pain Home Medications: Medications to take at Discharge Esomeprazole Magnesium [Nexium 24Hr] 20 mg PO PRN PRN 05/06/19 Amlodipine [Norvasc] 10 mg PO DAILY #30 tab 05/11/19 levothyroxine 25 mcg tablet 50 mcg PO DAILY tab 07/13/19 Fluticasone 0.05% [Flonase Nasal [place]] 1 spray NASAL DAILY 03/05/20 Lactulose [Constulose] 10 gm PO PRN PRN 03/05/20 Acetaminophen [Tylenol] 500 mg PO Q6H PRN PRN 08/26/20 Insulin NPH Human Isophane [Humulin N] See Protocol SQ PRN PRN 08/26/20 Aspirin [Aspirin, Baby] 81 mg PO DAILY@0800 #90 tab.chew 08/28/20 Loratadine/Pseudoephedrine [Claritin-D 24 Hour Tablet] 1 each PO DAILY #7 tab.er.24h 08/28/20 Metoprolol Tartrate [Lopressor (beta rajeev)] 25 mg PO BID #60 tablet 08/28/20 Oxymetazoline HCl [Afrin] 15 ml NS BID #1 spray 08/28/20 Warfarin [Coumadin] 4 mg PO DAILY@1700 #30 tablet 08/28/20 Following Prescriptions Were Given to Patient: Oxymetazoline HCl [Afrin] 15 ml NS BID #1 spray Transmission Status: Received by [facility] Aspirin [Aspirin, Baby] 81 mg PO DAILY@0800 #90 tab.chew Transmission Status: Received by [facility] Loratadine/Pseudoephedrine [Claritin-D 24 Hour Tablet] 1 each PO DAILY #7 tab.er.24h Transmission Status: Received by [facility] Warfarin [Coumadin] 4 mg PO DAILY@1700 #30 tablet Transmission Status: Received by [facility] Metoprolol Tartrate [Lopressor (beta rajeev)] 25 mg PO BID #60 tablet Transmission Status: Received by [facility]30 Primary Care Physician: Marge King FILM EDITOR SUPERVISOR, FILM EDITOR SUPERVISOR-C [Primary Care Provider] - Please follow up with your Primary Care Physician in: In 2 weeks Please Follow Up With: Jersey Yost MD When: as scheduled Medical Necessity - Tobacco Use Smoking Status: Former smoker Tobacco Use: Non-smoker Meaningful Use Info Meaningful Use Diagnoses (Choose all that apply): AMI - AMI/Post PCI/Angioplasty Aspirin given w/in 24hrs of arrival?: Yes ASA at discharge?: Yes Antiplatelet Therapy at Discharge:: Yes Statins at discharge?: Yes Angel/ARB at discharge?: No Reason Angel/ARB not ordered:: Worsening renal function Beta Rajeev at discharge?: Yes Done w/ Acute NC measure.: Yes Documented LVEF (%): 60 Inpatient E&M: [id number] Disch Hosp
--- NOTE | 2020-08-28 11:04 | CASEMGMT ---
CHARANJIT STRATTON NOTE: Intro role of CM to patient and CHILDERS form explained re: Observation status for treatment of chest pain and abnormal cardiac enzymes. Explained hospitalization will be paid per insurance policy for Outpatient billing and condition will continue to be evaluated for Inpt necessity. Also let pt know that [facility] sends paper in the billing packet with their phone number if questions arise. Pt verbalizes understanding and does not have further questions. Form signed, copy made and placed in chart, and original given to pt. Nikos REYES RN CM
== END 2020-08-28 10:29 | disposition home or self-care (01) ==
LOC: ED 17:08 → PCU 21:16
PROVIDERS: Family Medicine; Admitting Provider Hospitalist; Emergency Provider Student in an Organized Health Care Education/Training Program; PCP Nurse Practitioner Family; Visit Provider Internal Medicine
DX: I21.4 Non-ST elevation (NSTEMI) myocardial infarction (principal); I48.91 Unspecified atrial fibrillation; E87.6 Hypokalemia; I12.0 Hypertensive chronic kidney disease with stage 5 chronic kidney disease or end stage renal disease; E11.22 Type 2 diabetes mellitus with diabetic chronic kidney disease; N18.6 End stage renal disease; Z99.2 Dependence on renal dialysis; E03.9 Hypothyroidism, unspecified; I77.89 Other specified disorders of arteries and arterioles; Z79.899 Other long term (current) drug therapy; Z79.4 Long term (current) use of insulin; Z79.51 Long term (current) use of inhaled steroids; I25.10 Atherosclerotic heart disease of native coronary artery without angina pectoris; K50.80 Crohn's disease of both small and large intestine without complications; Z87.891 Personal history of nicotine dependence; J90 Pleural effusion, not elsewhere classified; I27.20 Pulmonary hypertension, unspecified; I08.1 Rheumatic disorders of both mitral and tricuspid valves; H66.90 Otitis media, unspecified, unspecified ear
CPT/HCPCS: 36415; 71045; 71275; 80048; 83735; 84145; 84436; 84439; 84443; 84481; 84484; 85025; 85610; 87635; 90937; 93005; 93306; 93454; 96372; 96374; 99152; 99153; 99218; 99251; 99285; J7030; Q9957; Q9967; A4216; C1769; C1894; C8929; G0257; G0378; G0463; U0002

== ENCOUNTER 2020-12-24 20:00 | Emergency (ER) | payer MEDICARE, MEDICAID, SELFPAY ==
[2020-08-26 21:58] VITALS: BMI 33.8
[2020-12-24 20:01] VITALS: BP 153/67; PULSE 68; RESP 16; RESP 17; TEMP 36.3; O2SAT 100; O2SAT 99; BMI 31.6
--- NOTE | 2020-12-24 20:51 | CT_ITS ---
EXAM: CT CHEST, ABDOMEN AND PELVIS WITHOUT INTRAVENOUS CONTRAST CLINICAL INDICATION: fall TECHNIQUE: Helically acquired images were obtained of the chest, abdomen and pelvis without intravenous contrast. This CT exam was performed using one or more of the following dose reduction techniques: automated exposure control, adjustment of the mA and/or kV according to patient size, and/or use of iterative reconstruction technique. [facility] report [facility] technology utilized. COMPARISON: 08/26/20 FINDINGS: CHEST: LUNGS AND PLEURAL SPACES: Normal lung volumes. No pneumothorax. There is a noncalcified 1.4 cm pleural-based nodule in the medial right lower lobe, axial image 62. Neoplasm is not excluded. PET scan recommended. No effusions. No infiltrates. Trace right pleural effusion, significantly improved since prior exam. HEART: Small pericardial effusion. Heart size is normal. MEDIASTINUM: Unremarkable. No mediastinal or hilar adenopathy. Esophagus is unremarkable. No hiatal hernia. THYROID: Unremarkable. No thyroid lesions. ABDOMEN: LIVER: Unremarkable. Homogeneous. GALLBLADDER AND BILE DUCTS: Cholelithiasis. No gallbladder distention or wall edema. No intra- or extrahepatic biliary ductal dilation. PANCREAS: Unremarkable. No focal cystic mass. SPLEEN: Unremarkable. Normal size without focal cystic or solid mass. ADRENALS: Unremarkable. No nodules. KIDNEYS AND URETERS: Small calcifications of both kidneys, probably combination of arterial calcifications and small nonobstructing renal stones. Normal renal size and position. STOMACH AND BOWEL: Evaluation of the GI tract is limited by absence of oral contrast. Cannot exclude stomach wall thickening. No dilated loops of bowel or evidence for obstruction. Cannot exclude segmental thickening of the saunders of the small or large bowel. Cannot exclude enteritis or colitis. Moderate diffuse fecal retention. Partial right colectomy. PELVIS: APPENDIX: See above. BLADDER: Unremarkable. REPRODUCTIVE: Unremarkable as visualized. No mass. CHEST, ABDOMEN and PELVIS: INTRAPERITONEAL SPACE: Unremarkable. No ascites or other fluid collection. No free air. BONES/JOINTS: Compression fracture of T9, stable. Degenerative changes of the skeletal structures. SOFT TISSUES: Unremarkable. No discrete abdominal or pelvic wall hernia. VASCULATURE: See above. LYMPH NODES: Unremarkable. No enlarged lymph nodes. CT/CT Chest, Abd, Pelvis WO Cont IMPRESSION: 1. No definite acute abnormality. 2. 1.4 cm nodule in the medial right lower lobe. PET scan recommended. 3. Cholelithiasis. 4. Renal arterial calcifications and/or small stones, with no evidence for obstruction. Electronically Signed: Richmond Heck MD at 22:27 EDT , Service support ,
[2020-12-24] MEDS: Morphine 2 MG/ML Syringe IV (21:02)
--- NOTE | 2020-12-24 21:58 | EDS_ITS ---
HPI History of Present Illness Chief Complaint: Fall Narrative Narrative: Patient presenting for evaluation secondary to a fall with back pain. Patient has a underlying history of end-stage renal disease on dialysis, A. fib, diabetes, hypertension. Patient states that he was at a hardware store, and he actually fell through a floor. He states that he fell about 5 to 6 feet directly onto his back. Denies hitting his head or loss of consciousness. He states that he was able to get up and self extricate himself from the hole, and actually drove around for a couple of hours after that but had a gradual onset of worsening low back pain and hip pain. Patient states that he got to the point where he was having some difficulty ambulating so he called the squad for further evaluation. He denies any numbness or weakness. Denies any visual changes. He denies any nausea or vomiting or confusion. View of systems otherwise negative. 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 Home Medications esomeprazole magnesium 20 mg PO PRN PRN 05/06/19 [History Last Taken 05/06/19 08:00 20 mg] amlodipine 10 mg PO DAILY #30 tab 05/11/19 [Rx Last Taken 08/26/20 06:00] levothyroxine 25 mcg tablet 50 mcg PO DAILY tab 07/13/19 [History Last Taken 08/26/20 06:00] fluticasone propionate 1 spray NASAL DAILY 03/05/20 [History Last Taken Unknown] lactulose 10 gm PO PRN PRN 03/05/20 [History Last Taken Unknown] acetaminophen 500 mg PO Q6H PRN PRN 08/26/20 [History Last Taken 08/26/20] insulin NPH isoph U-100 human See Protocol SQ PRN PRN 08/26/20 [History Last Taken Unknown] aspirin 81 mg PO DAILY@0800 #90 tab.chew 08/28/20 [Rx Last Taken Unknown] loratadine-pseudoephedrine 1 each PO DAILY #7 tab.er.24h 08/28/20 [Rx Last Taken Unknown] metoprolol tartrate 25 mg PO BID #60 tablet 08/28/20 [Rx Last Taken Unknown] oxymetazoline 15 ml NS BID #1 spray 08/28/20 [Rx Last Taken Unknown] atorvastatin 40 mg PO QHS #30 tablet 08/29/20 [Rx Last Taken Unknown] warfarin 4 mg tablet 4 mg PO .COMPLEX #45 tablet 09/02/20 [Rx Last Taken Unknown] oxycodone-acetaminophen [Percocet] 1 tab PO Q6H PRN 3 Days #12 tab 12/24/20 [Rx Last Taken Unknown] Allergy/AdvReac Type Severity Reaction Status Date / Time No Known Allergies Allergy Verified 12/24/20 20:06 Family History Father Diabetes Heart disease Hypertension Surgical History History of left heart catheterization (LHC) (~08/27/20) History of right hemicolectomy History of tonsillectomy Social History Smoking Status: Former smoker ROS ROS ED Constitutional Constitutional ED: Denies chills or fever(s) ENT ENT ED: Denies rhinorrhea Cardiovascular Cardiovascular: Denies chest pain Respiratory/Chest Respiratory/Chest: Denies cough or dyspnea Gastrointestinal Gastrointestinal: Denies abdominal pain, diarrhea, nausea or vomiting Genitourinary Genitourinary ED: Denies dysuria or hematuria Musculoskeletal Musculoskeletal: Reports back pain Integumentary Denies rash Neurologic Neurologic: Denies paresthesias or weakness Psychiatric Psychiatric: Denies depression Endocrine Endocrinology: Denies fatigue Allergic/Immunologic Allergic/Immunologic ED: Denies urticaria EXAM Physical Exam Const Vital Signs: 12/24/20 20:01 12/24/20 21:02 Temperature 97.3 F L Temperature Source Temporal Pulse Rate 68 Respiratory Rate 16 Respiratory Effort Normal Blood Pressure 153/67 H Blood Pressure Mean 95 Pulse Ox 100 Oxygen Delivery Method Room Air Room Air Positive well nourished and well developed Constitutional Narrative: Airway is patent, breath sounds equal bilateral, 2+ radial pulses bilaterally symmetric. GCS is 15 out of 15. General Appearance ED: well developed and NAD HEENT Reports moist mucous membranes Negative for trauma or tenderness Eyes EOMs intact bilaterally Neck full ROM, no lymphadenopathy, supple and no JVD Neck Narrative: No signs of step-offs General: Negative for tenderness Chest Wall inspection of chest normal Resp normal respiratory effort and clear to auscultation bilaterally Cardio regular rate, regular rhythm, no murmurs and peripheral pulses 2+ throughout Cardio Narrative: Left arm fistula has a palpable thrill GI normal to inspection, nondistended, normoactive bowel sounds, non-tender and no masses Palpation: soft Back/Spine normal to inspection Back/Spine Narrative: Patient complains of some upper lumbar spine tenderness palpation without signs of step-offs. Patient complains of bilateral rib tenderness with normal chest excursion no crepitus or deformity noted. Extremity normal to inspection General Extremety ED: Negative for tenderness Neuro oriented x3 and no sensory deficits noted Sensorium / Orientation: alert Motor Exam: strength 5/5 throughout Psych mental status grossly normal Skin no rashes or lesions noted MDM MDM MDM Narrative Medical decision making narrative: Patient presenting for evaluation secondary to a fall and back pain. Primary survey required no intervention, secondary survey showed mainly rib and back pain. Due to the 6 foot distance of the fall, I did perform CT imaging on patient. Patient was not noted to have any sort of injuries associated with this, was noted to have a 1.4 cm nodule in his right lower lobe of his lung. I did inform the patient of this. Patient's pain was addressed in the emergency department, he had symptomatic improvement. I do not believe that he requires admission or further observation. Patient did request at home analgesia, he will be provided with a short course of Percocet. Patient was recommended to follow-up with primary care for further imaging of his lung nodule. Patient was discharged in stable condition. Radiography Diagnostic Testing: Radiology Impression Chest/Abdomen/Pelvis CT 12/24/20 20:51 IMPRESSION: 1. No definite acute abnormality. 2. 1.4 cm nodule in the medial right lower lobe. PET scan recommended. 3. Cholelithiasis. 4. Renal arterial calcifications and/or small stones, with no evidence for obstruction. Electronically Signed: Richmond Heck MD at 22:27 EDT , Service support , Discharge Plan Triage Chief Complaint: Fall ED Provider: Chaim Yates Dx/Rx/DC Orders Clinical Impression: Lumbar contusion, Incidental lung nodule Instructions: ED Mechanical Fall, ED Pulmonary Nodule, Solitary Prescriptions: New oxycodone-acetaminophen [Percocet] 5-325 mg tablet 1 tab PO Q6H PRN (Reason: pain) 3 Days Qty: 12 RF: 0 No Action esomeprazole magnesium 20 MG capsule,delayed release(DR/EC) 20 mg PO PRN PRN (Reason: GERD) RF: 0 amlodipine 10 MG tablet 10 mg PO DAILY Qty: 30 RF: 0 levothyroxine 25 mcg tablet 50 mcg PO DAILY RF: 0 fluticasone propionate 1 SPRAY spray,suspension 1 spray NASAL DAILY RF: 0 lactulose 10 GM/15 ML solution 10 gm PO PRN PRN (Reason: Constipation) RF: 0 acetaminophen 500 MG tablet 500 mg PO Q6H PRN PRN (Reason: Pain 1-10 Or Fever) RF: 0 insulin NPH isoph U-100 human 100 UNIT/ML suspension See Protocol unit SQ PRN PRN (Reason: diabetes) RF: 0 aspirin 81 MG tablet,chewable 81 mg PO DAILY@0800 Qty: 90 RF: 0 metoprolol tartrate 25 MG tablet 25 mg PO BID Qty: 60 RF: 0 oxymetazoline 15 ML spray,non-aerosol 15 ml NS BID Qty: 1 RF: 0 loratadine-pseudoephedrine 1 EACH tablet extended release 24 hr 1 each PO DAILY Qty: 7 RF: 0 atorvastatin 40 MG tablet 40 mg PO QHS Qty: 30 RF: 1 warfarin 4 mg tablet 4 mg PO .COMPLEX Qty: 45 RF: 11 Primary Care Provider: Marge King NP Referrals: Marge King NP, CONTROL SYSTEMS ENGINEER-C [Primary Care Provider] - 1-2 Weeks Disposition Disposition: Home, Self Care
[2020-12-24 23:04] VITALS: BP 155/78; PULSE 68; RESP 16; O2SAT 99
== END 2020-12-24 23:31 | disposition home or self-care (01) ==
PROVIDERS: Emergency Provider Emergency Medicine; PCP Nurse Practitioner Family
DX: R91.1 Solitary pulmonary nodule (principal); S30.0XXA Contusion of lower back and pelvis, initial encounter; I25.10 Atherosclerotic heart disease of native coronary artery without angina pectoris; I12.0 Hypertensive chronic kidney disease with stage 5 chronic kidney disease or end stage renal disease; E11.22 Type 2 diabetes mellitus with diabetic chronic kidney disease; N18.6 End stage renal disease; I48.91 Unspecified atrial fibrillation; Z79.01 Long term (current) use of anticoagulants; Z79.4 Long term (current) use of insulin; Z79.899 Other long term (current) drug therapy; Z87.891 Personal history of nicotine dependence; W13.3XXA Fall through floor, initial encounter; Y93.89 Activity, other specified; Y92.512 Supermarket, store or market as the place of occurrence of the external cause; Y99.8 Other external cause status
CPT/HCPCS: 71250; 74176; 96374; 99284

== ENCOUNTER 2020-12-29 08:45 | Inpatient (IN) | payer MEDICARE, MEDICAID, SELFPAY ==
[2020-12-29] VITALS (9 sets, daily range): BP systolic 163–187; BP diastolic 69–90; PULSE 74–81; RESP 16–22; TEMP 36.4–37; O2SAT 91–100; BMI 31.2; BMI 31.4
--- NOTE | 2020-12-29 09:20 | EKG12_ITS ---
Test Reason : FALL Blood Pressure : / mmHG Vent. Rate : 079 BPM Atrial Rate : 079 BPM P-R Int : 150 ms QRS Dur : 080 ms QT Int : 436 ms P-R-T Axes : 035 -43 037 degrees QTc Int : 499 ms Normal sinus rhythm Left axis deviation Nonspecific ST abnormality Prolonged QT Abnormal ECG Confirmed by JONATHAN TREADWELL, URIEL ([id number]), primer expeditor and drier SUHA PAULSON ([id number]) on 01/01/2021 11:00:25 AM Referred By: DMITRI Confirmed By:URIEL CASTILLO MD
--- NOTE | 2020-12-29 09:20 | CT_ITS ---
STUDY: CT BRAIN WITHOUT CONTRAST REASON FOR EXAM: Male, 55 years old. Confusion RADIATION DOSAGE (If Supplied By Facility): CTDIvol = ( 44.99 ) mGy, DLP = ( 863.60 ) mGycm TECHNIQUE: Transaxial CT imaging of the brain was performed without administration of intravenous contrast material. Individualized dose optimization techniques were used for this CT. COMPARISON: 03/23/2020 FINDINGS: Normal soft tissue structures. Normal calvarium. Normal size ventricles and extra-axial spaces for the patient''s age. Normal white matter tracts of the cerebral hemispheres. Normal basal ganglia and thalami. Normal brainstem. Normal cerebellum. There is no intracranial hemorrhage. There are no findings of an acute ischemic infarction. Normal visualized paranasal sinuses. CT/Brain/Head without Contrast IMPRESSION: Normal unenhanced CT scan of the brain. Electronically Signed: Curtis Prieto MD at 10:07 EDT Tel , Service support ,
--- NOTE | 2020-12-29 09:27 | EDS_ITS ---
HPI History of Present Illness Chief Complaint: Alt LOC Informant: patient and family Narrative Narrative: Patient is a 55-year-old male who presents to the emergency department for altered mental status. Patient accompanied by his brother. Apparently this morning on the couch the patient was not making much sense. He has had episodes of confusion before after dialysis. He is on a Tuesday, Tuesday, Tuesday schedule. He did not go to dialysis today. He did go on Tuesday. Apparently patient does have a history of falls. They are not sure if he is fallen recently. They believe he did have an episode of a Crohn's flare with recent diarrhea but this is improving. Patient has had dehydration before in the past. On examination patient complaining of left arm pain but no other symptoms. He denies any headache or neck stiffness. No chest pain or shortness of breath. No abdominal pain. No nausea/vomiting. Patient is alert and oriented only to person but not place and time. 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 Home Medications esomeprazole magnesium 20 mg PO PRN PRN 05/06/19 [History Last Taken 05/06/19 08:00 20 mg] amlodipine 10 mg PO DAILY #30 tab 05/11/19 [Rx Last Taken 08/26/20 06:00] levothyroxine 25 mcg tablet 50 mcg PO DAILY tab 07/13/19 [History Last Taken 08/26/20 06:00] fluticasone propionate 1 spray NASAL DAILY 03/05/20 [History Last Taken Unknown] lactulose 10 gm PO PRN PRN 03/05/20 [History Last Taken Unknown] acetaminophen 500 mg PO Q6H PRN PRN 08/26/20 [History Last Taken 08/26/20] insulin NPH isoph U-100 human See Protocol SQ PRN PRN 08/26/20 [History Last Taken Unknown] aspirin 81 mg PO DAILY@0800 #90 tab.chew 08/28/20 [Rx Last Taken Unknown] loratadine-pseudoephedrine 1 each PO DAILY #7 tab.er.24h 08/28/20 [Rx Last Taken Unknown] metoprolol tartrate 25 mg PO BID #60 tablet 08/28/20 [Rx Last Taken Unknown] oxymetazoline 15 ml NS BID #1 spray 08/28/20 [Rx Last Taken Unknown] atorvastatin 40 mg PO QHS #30 tablet 08/29/20 [Rx Last Taken Unknown] warfarin 4 mg tablet 4 mg PO .COMPLEX #45 tablet 09/02/20 [Rx Last Taken Unknown] Allergy/AdvReac Type Severity Reaction Status Date / Time No Known Allergies Allergy Verified 12/29/20 08:52 Family History Father Diabetes Heart disease Hypertension Surgical History History of left heart catheterization (LHC) (~08/27/20) History of right hemicolectomy History of tonsillectomy Social History Smoking Status: Former smoker ROS ROS ED Constitutional Constitutional ED: Denies chills or fever(s) ENT ENT ED: Denies epistaxis or rhinorrhea Cardiovascular Cardiovascular: Denies chest pain or palpitations Respiratory/Chest Respiratory/Chest: Denies cough or dyspnea Gastrointestinal Gastrointestinal: Denies abdominal pain, diarrhea, nausea or vomiting Genitourinary Genitourinary ED: Denies dysuria, hematuria or urinary frequency Musculoskeletal Musculoskeletal: Reports arthralgias; Denies back pain or neck pain Integumentary Denies rash Neurologic Neurologic: Denies dizziness, headache(s) or weakness EXAM Physical Exam Const Vital Signs: 12/29/20 08:49 12/29/20 11:27 Temperature 97.7 F L 97.6 F L Temperature Source Oral Temporal Pulse Rate 81 78 Respiratory Rate 22 H 20 H Blood Pressure 180/81 H 186/88 H Blood Pressure Mean 114 120 Pulse Ox 100 91 Oxygen Delivery Method Room Air Room Air Positive well nourished and well developed General Appearance ED: well developed and NAD HEENT Reports normocephalic, head/scalp atraumatic and moist mucous membranes Eyes PERRL and EOMs intact bilaterally Neck supple General: Negative for tenderness Chest Wall inspection of chest normal Resp normal respiratory effort and clear to auscultation bilaterally Auscultation: Negative for rales, rhonchi or wheezes Cardio regular rate, regular rhythm and no murmurs GI normal to inspection, nondistended, normoactive bowel sounds and non-tender Palpation: soft; Negative for guarding or rebound tenderness present Extremity normal to inspection Extremity Narrative: Full range of motion. No obvious deformities of all extremities. Neurovascular intact. General Extremety ED: Negative for edema or tenderness General Extremity: Negative for edema Neuro CN's II-XII intact bilaterally and no sensory deficits noted Neuro Narrative: Oriented to person but not place or time. Nonfocal exam. Sensorium / Orientation: alert Motor Exam: strength 5/5 throughout Psych Psych Narrative: Slow to respond to questioning but does answer questions appropriately. Skin no rashes or lesions noted MDM MDM MDM Narrative Medical decision making narrative: Patient presents to the emergency department for confusion. He has had episodes like this before in the past. On arrival to the ED is hypertensive, mildly tachypneic but otherwise normal vital signs. He is afebrile. Nonfocal exam. Low concern for stroke. Will check CT scan of the head as he does have a history of falls on Coumadin. Will check basic lab work to evaluate electrolyte status. Patient CT scan of the head did not reveal any acute intracranial abnormality. He has a mild elevation of his white blood cell count of 13.1 but no evidence of infection. His creatinine is at 7.96 and his BUN is at 41. No significant acute electrolyte disturbance associated with this. His glucose is 180. No evidence of DKA. Liver enzymes are not elevated I do not know this is a hepatic encephalopathy. Chest x-ray did not reveal any acute cardiopulmonary abnormality without any evidence of pneumonia. Given his altered mental state will bring him into the hospital and will need dialysis. He otherwise has remained stable throughout ED stay. This was all discussed with his family member at bedside and they are agreeable with this plan. Lab Data Labs: Laboratory Results - last 24 hr 12/29/20 12/29/20 12/29/20 08:50 08:50 08:50 WBC 13.1 H RBC 4.38 L Hgb 13.3 Hct 39.2 L MCV 89.5 MCH 30.4 MCHC 33.9 RDW Std Deviation 44.6 H RDW Coeff of [place] 13.6 Plt Count 309 MPV 10.7 Immature Gran % (Auto) 0.600 Neut % (Auto) 81.2 H Lymph % (Auto) 9.5 L [place] % (Auto) 5.0 Eos % (Auto) 2.9 Baso % (Auto) 0.8 Absolute Neuts (auto) 10.6 H Absolute Lymphs (auto) 1.24 Nucleated RBC % 0 PT INR Sodium 136 Potassium 4.5 Chloride 98 Carbon Dioxide 23.0 Anion Gap 15 BUN 41 H Creatinine 7.96 H* Estim Creat Clear Calc 11.24 Est GFR (MDRD) Af Amer 9 L Est GFR (MDRD) Non-Af 7 L BUN/Creatinine Ratio 5.2 L Glucose 180 H Calcium 8.9 Phosphorus 7.1 H Magnesium 2.4 Total Bilirubin 0.90 AST 15 ALT 12 L Alkaline Phosphatase 97 Troponin I High Sens 18.6 Total Protein 8.0 Albumin 3.7 Globulin 4.3 H Albumin/Globulin Ratio 0.9 12/29/20 10:15 WBC RBC Hgb Hct MCV MCH MCHC RDW Std Deviation RDW Coeff of [place] Plt Count MPV Immature Gran % (Auto) Neut % (Auto) Lymph % (Auto) [place] % (Auto) Eos % (Auto) Baso % (Auto) Absolute Neuts (auto) Absolute Lymphs (auto) Nucleated RBC % PT 14.5 INR 1.2 Sodium Potassium Chloride Carbon Dioxide Anion Gap BUN Creatinine Estim Creat Clear Calc Est GFR (MDRD) Af Amer Est GFR (MDRD) Non-Af BUN/Creatinine Ratio Glucose Calcium Phosphorus Magnesium Total Bilirubin AST ALT Alkaline Phosphatase Troponin I High Sens Total Protein Albumin Globulin Albumin/Globulin Ratio Radiography Diagnostic Testing: Radiology Impression Brain CT 12/29/20 09:20 IMPRESSION: Normal unenhanced CT scan of the brain. Electronically Signed: Curtis Prieto MD at 10:07 EDT Tel , Service support , Chest X-Ray 12/29/20 11:00 IMPRESSION: Normal x-ray examination of the chest. Electronically Signed: Curtis Prieto MD at 11:31 EDT Tel , Service support , EKG Initial EKG: Attestation: I personally reviewed and interpreted this EKG as follows: (Rate of 79 bpm and normal sinus rhythm. Normal intervals. Left axis deviation. No significant ST elevations or depressions. No T wave abnormalities.) Discharge Plan Dx/Rx/DC Orders Clinical Impression: Altered mental state, ESRD on hemodialysis Disposition Disposition: Acute Care Hospital [facility] Discharge Date/Time: 12/29/20 12:24
[2020-12-29 09:28] LABS: Absolute Lymphocyte Count 1.24 X10^3/uL (0.83-4.51); Absolute Neutrophil Count 10.6 X10^3/uL (2.0-7.7); Basophil% 0.8 % (0-1); Eosinophil# 0.38 X10^3/uL; Eosinophils% 2.9 % (0-5); Hematocrit 39.2 % (40-54); Hemoglobin 13.3 g/dL (13.0-16.5); Lymphocyte # 1.24 X10^3/ul (0.83-4.51); Lymphocyte % 9.5 % (19-41); Mean Corp Hgb Conc 33.9 g/dL (32-36); Mean Corpuscular Hgb 30.4 pg (27.0-32.0); Mean Corpuscular Volume 89.5 fL (80-94); Mean Platelet Vol. 10.7 fl (6.2-12.0); Monocyte# 0.66 X10^3/uL; NRBC Flagged by Analyzer 0 % (0-5); Neutrophil # 10.63 X10^3/uL (2.7-7.7); Neutrophil % 81.2 % (47-70); Platelet Count 309 K/mm3 (150-450); RBC Distribution Width CV 13.6 % (11.6-14.6); RBC Distribution Width SD 44.6 fl (35.1-43.9); Red Blood Count 4.38 M/mm3 (4.6-6.2); White Blood Count 13.1 K/mm3 (4.4-11.0)
[2020-12-29 09:53] LABS: ALB/GLOB Ratio 0.9 RATIO (0.9-2.4); AST(SGOT) 15 U/L (15-37); Alanine Aminotransfer ALT/SGPT 12 U/L (16-61); Albumin, Serum 3.7 g/dL (3.2-5.0); Alkaline Phosphatase 97 U/L (45-117); Anion Gap 15 (5-15); BUN 41 mg/dL (7-18); BUN/Creat Ratio 5.2 RATIO (10-20); Calcium,Total 8.9 mg/dL (8.5-10.1); Chloride 98 mmol/L (98-107); Creatinine, Serum 7.96 mg/dL (0.70-1.30); EST Glomerular Filtration Rate 7 mL/min (>60); Est Glom Filt Rate - Afr Amer 9 mL/min (>60); Estimated Creatinine Clearance 11.24 ml/min; Globulin 4.3 g/dL (2.2-4.2); Glucose 180 mg/dL (74-106); Magnesium 2.4 mg/dL (1.6-2.6); Potassium 4.5 mmol/L (3.5-5.1); Sodium Level 136 mmol/L (136-145); Troponin-I HS 18.6 pg/mL (3.0-78.5)
[2020-12-29 10:36] LABS: International Normalized Ratio 1.2; Prothrombin Time (Protime)PT. 14.5 SECONDS (11.7-14.9)
--- NOTE | 2020-12-29 11:00 | RAD_ITS ---
STUDY: X-RAY CHEST REASON FOR EXAM: Male, 55 years old. AMS, leukocytosis TECHNIQUE: Single AP portable view of the chest. COMPARISON: 08/26/2020 FINDINGS: The lungs are clear and expanded. There is no demonstrated pleural abnormality. Normal size heart. Normal mediastinum and nelda. Normal visualized pulmonary arteries. Normal visualized aortic arch and descending thoracic aorta. Normal visualized thoracic spine. Normal visualized ribs, clavicles, and shoulders. There is no demonstrated abnormality of the visualized soft tissue structures of the upper abdomen. RAD/Chest 1 View (Portable) IMPRESSION: Normal x-ray examination of the chest. Electronically Signed: Curtis Prieto MD at 11:31 EDT Tel , Service support ,
--- NOTE | 2020-12-29 11:54 | PCM.HP.STD ---
HPI - General General Date of Admission: 12/29/20 HPI Narrative ISABELLA VILLA, is a 55 M who presents with multiple comorbidities as listed below was brought to ED by EMS for altered mental status, confusion, not acting himself and fall. History mainly taken from patient's brother, Mr. Drew Villa near the bedside. As per EMS report, patient missed dialysis appointment this morning. Glucose tested 153. Patient was confused. When I saw the patient, he is awake, repetitive, his sentences are not making sense/incoherent. As per the brother, he fell earlier today on his back and history of recurrent fall. The patient was last admitted between 08/26-08/28 for non-STEMI, A. fib with RVR and had cardiac cath which showed [place] multivessel coronary artery disease but was decided for medical management in view of anticipating kidney transplant in [facility]. Patient also had 1 ED visit for fall 12/24/2020. In ED, patient's blood pressure is high 180/81. Afebrile. Mild leukocytosis. Twelve-lead EKG shows sinus rhythm with prolonged QTC, 490 ms, LAD, nonspecific ST-T abnormality. BMP consistent with ESRD on hemodialysis Chest x-ray and CT does not show acute change. 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 Home Medications esomeprazole magnesium 20 mg PO PRN PRN 05/06/19 [History Last Taken 05/06/19 08:00 20 mg] amlodipine 10 mg PO DAILY #30 tab 05/11/19 [Rx Last Taken 08/26/20 06:00] levothyroxine 25 mcg tablet 50 mcg PO DAILY tab 07/13/19 [History Last Taken 08/26/20 06:00] fluticasone propionate 1 spray NASAL DAILY 03/05/20 [History Last Taken Unknown] lactulose 10 gm PO PRN PRN 03/05/20 [History Last Taken Unknown] acetaminophen 500 mg PO Q6H PRN PRN 08/26/20 [History Last Taken 08/26/20] insulin NPH isoph U-100 human See Protocol SQ PRN PRN 08/26/20 [History Last Taken Unknown] aspirin 81 mg PO DAILY@0800 #90 tab.chew 08/28/20 [Rx Last Taken Unknown] loratadine-pseudoephedrine 1 each PO DAILY #7 tab.er.24h 08/28/20 [Rx Last Taken Unknown] metoprolol tartrate 25 mg PO BID #60 tablet 08/28/20 [Rx Last Taken Unknown] oxymetazoline 15 ml NS BID #1 spray 08/28/20 [Rx Last Taken Unknown] atorvastatin 40 mg PO QHS #30 tablet 08/29/20 [Rx Last Taken Unknown] warfarin 4 mg tablet 4 mg PO .COMPLEX #45 tablet 09/02/20 [Rx Last Taken Unknown] Allergy/AdvReac Type Severity Reaction Status Date / Time No Known Allergies Allergy Verified 12/29/20 08:52 Family History Father Diabetes Heart disease Hypertension Surgical History History of left heart catheterization (LHC) (~08/27/20) History of right hemicolectomy History of tonsillectomy Social History Smoking Status: Former smoker ROS ROS Narrative 12 system ROS are notable as patient is confused, disoriented. As per mother he did not had fever or chills. Patient does not make urine. Review of Systems ROS Unobtainable: due to encephalopathy Vital Signs Vital Signs Vital Signs: 12/29/20 08:49 12/29/20 11:27 Temperature 97.7 F L 97.6 F L Temperature Source Oral Temporal Pulse Rate 81 78 Respiratory Rate 22 H 20 H Blood Pressure 180/81 H 186/88 H Blood Pressure Mean 114 120 Pulse Ox 100 91 Oxygen Delivery Method Room Air Room Air Weight Weight: 230 lb 6.129 oz Body Mass Index (BMI) 31.2 Physical Exam Narrative General: Awake, confused, disoriented to time and place and situation. Incoherent HEENT: Atraumatic, PERRLA, EOMI, Normocephalic Oral: Oral mucosa dry. No Gingival or Mucosal Lesions/ Ulcerations Neck: Supple, No JVD, Negative Carotid Bruits Lungs: Air entry diminished in bilateral lung bases. No crepitation/rhonchi Cardiovascular: Regular rate, Regular Rhythm, Normal S1, Normal S2, No murmurs Abdomen: Bowel Sounds Present, Soft, Non Tender, Non-Distended : No renal angle tenderness. No suprapubic tenderness. Extremities: No edema, Capillary Refill Less than 3 Seconds Skin: Small abrasion on the left leg. No ulcer Musculoskeletal: No Tenderness to Palpation of Joints or Extremities Neurological: Cranial nerves II-XII grossly intact, DTR 2+/4, no FND Psych/Mental Status: Confused, repetitive Results Lab / Micro Data Result Diagrams: 12/29/20 08:50 12/29/20 08:50 Labs: Laboratory Results - last 24 hr 12/29/20 08:50: WBC 13.1 H, RBC 4.38 L, Hgb 13.3, Hct 39.2 L, MCV 89.5, MCH 30.4, MCHC 33.9, RDW Std Deviation 44.6 H, RDW Coeff of [place] 13.6, Plt Count 309, MPV 10.7, Immature Gran % (Auto) 0.600, Neut % (Auto) 81.2 H, Lymph % (Auto) 9.5 L, [place] % (Auto) 5.0, Eos % (Auto) 2.9, Baso % (Auto) 0.8, Absolute Neuts (auto) 10.6 H, Absolute Lymphs (auto) 1.24, Nucleated RBC % 0 12/29/20 08:50: Sodium 136, Potassium 4.5, Chloride 98, Carbon Dioxide 23.0, Anion Gap 15, BUN 41 H, Creatinine 7.96 H*, Estim Creat Clear Calc 11.24, Est GFR (MDRD) Af Amer 9 L, Est GFR (MDRD) Non-Af 7 L, BUN/Creatinine Ratio 5.2 L, Glucose 180 H, Calcium 8.9, Magnesium 2.4, Total Bilirubin 0.90, AST 15, ALT 12 L, Alkaline Phosphatase 97, Troponin I High Sens 18.6, Total Protein 8.0, Albumin 3.7, Globulin 4.3 H, Albumin/Globulin Ratio 0.9 12/29/20 10:15: PT 14.5, INR 1.[address] 12/29/20 09:20 IMPRESSION: Normal unenhanced CT scan of the brain. Electronically Signed: Curtis Prieto MD at 10:07 EDT Tel , Service support , Chest X-Ray 12/29/20 11:00 IMPRESSION: Normal x-ray examination of the chest. Electronically Signed: Curtis Prieto MD at 11:31 EDT Tel , Service support , Assessment & Plan Assessment/Plan (1) Acute encephalopathy: PLAN: This is a 55-year-old gentleman admitted for confusion, disoriented, missed hemodialysis and fall 1. Acute encephalopathy most probably metabolic encephalopathy: Patient is being admitted in PCU on playground monitor. Correspondence Analyst is consulted for hemodialysis. Treat the underlying condition. 2. History of coronary artery disease, paroxysmal A. fib: Patient was last admitted in September 10 for non-STEMI and A. fib with RVR.Patient had cardiac cath which showed [place] multivessel coronary artery disease. Mid LAD small vessel 50 to 75%, proximal D2 small vessel 50 to 75%. Distal circumflex 50 to 75% stenosis. Costume Mistress decided for medical management after discussion with the renal transplant team probably the risk of delaying transplant if patient goes on anticoagulant/antiplatelet agent. 2D echo EF 60%. On aspirin, metoprolol, atorvastatin and amlodipine. INR subtherapeutic, continue Coumadin. Monitor INR daily 3. ESRD on hemodialysis: Hemodialysis session as per speech language specialist. 4. Hypothyroidism: TSH tomorrow a.m. Home dose of levothyroxine resumed 5. Diabetes mellitus type 2: Accu-Chek insulin coverage Humalog sliding scale. NPH changed to Lantus insulin 6. Crohn's disease: Patient had surgery in the remote past. Other comorbidities include history of allergic rhinitis/sinusitis. VTE prophylaxis: Bilateral SCD. On Coumadin Living will/advanced directive/end of life care: Advance directive discussed with the brother, Mr. Drew Villa. He said the patient does not have living will or advanced directive as per brother. After discussion of benefits/risks procedures involved with full code, DNR CC arrest and DNR CC, with his brother, he opted for full code The patient is good for artificial life support including intubation, tube feed, ventilator and/chest compression, central venous catheter, vasopressor and DC shock if needed Total time spent in [id number] encounter in discussion of advanced directive 16 minutes. Charges/Coding Visit Charges OBSV E&M: 53257 Initial observation care L3 Procedures Hospitalists Procedures: 89594 Advncd Care Plan 30 Min
[2020-12-29 12:37] LABS: Phosphorus 7.1 mg/dL (2.5-4.9)
--- NOTE | 2020-12-29 13:55 | PCM.CONS.R ---
Assessment & Plan Assessment/Plan (1) ESRD (end stage renal disease) on dialysis: PLAN: Seen at start of dialysis continue Tuesday schedule (2) Acute encephalopathy: PLAN: CT head unremarkable, etiology unclear (3) Diabetes: QUALIFIERS: Diabetes mellitus type: type 2 PLAN: Blood sugar stable (4) Hypertension: QUALIFIERS: Hypertension type: essential hypertension Qualified Code(s): I10 - Essential (primary) hypertension PLAN: Resume home medications (5) Hyperphosphatemia: PLAN: Recheck in a.m. Patient not on binders at home. (6) Frequent falls: PLAN: Assess with PT OT, primary service management HPI Consult Data Date of Consult: 12/29/20 HPI Narrative HPI Narrative: ISABELLA ANDERSON, is a 55 M who presents With altered mental status, confusion this morning. He missed his dialysis treatment today which alerted the dialysis center to: We will check. 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 Welch. CT of the head without contrast was unremarkable. He has leukocytosis without fever. Patient with a history of frequent falls at home past several weeks. His brother Drew at bedside. Patient still with foggy mentation disoriented to time think it is 2002. He is alert to person and place. Denied any fever or chills, cough, dysuria. Denies any nausea or vomiting, chest pain or shortness of breath. 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 Home Medications esomeprazole magnesium 20 mg PO PRN PRN 05/06/19 [History Last Taken 05/06/19 08:00 20 mg] amlodipine 10 mg PO DAILY #30 tab 05/11/19 [Rx Last Taken 08/26/20 06:00] levothyroxine 25 mcg tablet 50 mcg PO DAILY tab 07/13/19 [History Last Taken 08/26/20 06:00] fluticasone propionate 1 spray NASAL DAILY 03/05/20 [History Last Taken Unknown] lactulose 10 gm PO PRN PRN 03/05/20 [History Last Taken Unknown] acetaminophen 500 mg PO Q6H PRN PRN 08/26/20 [History Last Taken 08/26/20] insulin NPH isoph U-100 human See Protocol SQ PRN PRN 08/26/20 [History Last Taken Unknown] aspirin 81 mg PO DAILY@0800 #90 tab.chew 08/28/20 [Rx Last Taken Unknown] loratadine-pseudoephedrine 1 each PO DAILY #7 tab.er.24h 08/28/20 [Rx Last Taken Unknown] metoprolol tartrate 25 mg PO BID #60 tablet 08/28/20 [Rx Last Taken Unknown] oxymetazoline 15 ml NS BID #1 spray 08/28/20 [Rx Last Taken Unknown] atorvastatin 40 mg PO QHS #30 tablet 08/29/20 [Rx Last Taken Unknown] warfarin 4 mg tablet 4 mg PO .COMPLEX #45 tablet 09/02/20 [Rx Last Taken Unknown] Allergy/AdvReac Type Severity Reaction Status Date / Time No Known Allergies Allergy Verified 12/29/20 08:52 Family History Father Diabetes Heart disease Hypertension Surgical History History of left heart catheterization (LHC) (~08/27/20) History of right hemicolectomy History of tonsillectomy Social History Smoking Status: Former smoker ROS Constitutional Constitutional: Reports weakness; Denies chills or fever(s) Eyes Eyes: Denies loss of vision Cardiovascular Cardiovascular: Denies chest pain Respiratory/Chest Respiratory/Chest: Denies shortness of breath at rest Gastrointestinal Gastrointestinal: Denies abdominal pain, diarrhea, nausea or vomiting Genitourinary Genitourinary: Denies difficulty urinating or dysuria Musculoskeletal Musculoskeletal: Reports other Details: Generalized weakness with frequent falls past several weeks ; Denies limited range of motion Integumentary Integumentary: Denies lesions Neurologic Neurologic: Reports confusion, frequent falls, syncope and weakness; Denies focal weakness, seizures or tremor(s) Physical Exam Const alert and no apparent distress Orientation / Consciousness: oriented to person and oriented to place Resp clear to auscultation bilaterally Cardio regular rate GI non-tender and non-distended Auscultation: normoactive bowel sounds Palpation: soft Extremity no clubbing, cyanosis or edema General Extremity: AV fistula Skin no wounds Neuro Neuro Narrative: Drowsy but arousable Psych cooperative Lab / Micro Data Result Diagrams: 12/29/20 08:50 12/29/20 08:50 Labs: Laboratory Results - last 24 hr 12/29/20 08:50: WBC 13.1 H, RBC 4.38 L, Hgb 13.3, Hct 39.2 L, MCV 89.5, MCH 30.4, MCHC 33.9, RDW Std Deviation 44.6 H, RDW Coeff of [place] 13.6, Plt Count 309, MPV 10.7, Immature Gran % (Auto) 0.600, Neut % (Auto) 81.2 H, Lymph % (Auto) 9.5 L, [place] % (Auto) 5.0, Eos % (Auto) 2.9, Baso % (Auto) 0.8, Absolute Neuts (auto) 10.6 H, Absolute Lymphs (auto) 1.24, Nucleated RBC % 0 12/29/20 08:50: Sodium 136, Potassium 4.5, Chloride 98, Carbon Dioxide 23.0, Anion Gap 15, BUN 41 H, Creatinine 7.96 H*, Estim Creat Clear Calc 11.24, Est GFR (MDRD) Af Amer 9 L, Est GFR (MDRD) Non-Af 7 L, BUN/Creatinine Ratio 5.2 L, Glucose 180 H, Calcium 8.9, Magnesium 2.4, Total Bilirubin 0.90, AST 15, ALT 12 L, Alkaline Phosphatase 97, Troponin I High Sens 18.6, Total Protein 8.0, Albumin 3.7, Globulin 4.3 H, Albumin/Globulin Ratio 0.9 12/29/20 08:50: Phosphorus 7.1 H 12/29/20 10:15: PT 14.5, INR 1.[address] 12/29/20 09:20 IMPRESSION: Normal unenhanced CT scan of the brain. Electronically Signed: Curtis Prieto MD at 10:07 EDT Tel , Service support , Chest X-Ray 12/29/20 11:00 IMPRESSION: Normal x-ray examination of the chest. Electronically Signed: Curtis Prieto MD at 11:31 EDT Tel , Service support ,
[2020-12-29] MEDS: amLODIPine 10 MG Tablet PO (19:48)
[2020-12-29] MEDS: hydrALAZINE 50 MG Tablet PO (19:48)
--- NOTE | 2020-12-29 19:58 | DIALYSIS ---
HD x 4 hours complete. Tolerated tx well. No fluid removed. Ran on 2k bath. Used left arm access. [place] removed post tx and pressure applied x 10 minutes. Hemostasis achieved. Fresh gauze and tape applied. Blood cultures x 1 drawn during dialysis. Report was given to CHARANJIT Varner.
--- NOTE | 2020-12-29 22:43 | NURSING ---
This RN checked pt's vitals and BP was 163/69. Pt informed that this RN needed to check his blood sugar and give him his blood pressure pills since his BP was high. Pt repeatedly kept saying no and would not let this RN give him his pills or check his blood sugar despite multiple attempts to educate. Pt's brother Drew called and informed of the situation. Drew tried talking to pt about the importance of taking his pills and getting his blood sugar checked, but pt still kept refusing saying he didn't feel like it. Pt oriented to self and place, but not time. This RN spoke to Drew and Drew advised to let him refuse at this time because he will probably get agitated if we keep trying. Pt resting in bed at this time and wants to be left alone. Dr. Young informed of the situation as well. CHARANJIT Guy.
[2020-12-30] VITALS (15 sets, daily range): BP systolic 166–176; BP diastolic 75–84; PULSE 72–95; RESP 16–18; TEMP 36.3–36.8; O2SAT 95–99
[2020-12-30] MEDS: Acetaminophen 325 MG Tablet 650 MG PO ×2 (03:32→21:08)
[2020-12-30 05:42] LABS: Absolute Lymphocyte Count 1.07 X10^3/uL (0.83-4.51); Absolute Neutrophil Count 8.4 X10^3/uL (2.0-7.7); Basophil# 0.11 X10^3/uL; Eosinophil# 0.68 X10^3/uL; Eosinophils% 6.1 % (0-5); Hematocrit 35.8 % (40-54); Hemoglobin 11.8 g/dL (13.0-16.5); Lymphocyte # 1.07 X10^3/ul (0.83-4.51); Lymphocyte % 9.6 % (19-41); Mean Corpuscular Hgb 29.6 pg (27.0-32.0); Mean Corpuscular Volume 89.9 fL (80-94); Mean Platelet Vol. 10.2 fl (6.2-12.0); Monocyte# 0.89 X10^3/uL; NRBC Flagged by Analyzer 0 % (0-5); Neutrophil # 8.37 X10^3/uL (2.7-7.7); Neutrophil % 74.9 % (47-70); Platelet Count 269 K/mm3 (150-450); RBC Distribution Width CV 13.5 % (11.6-14.6); RBC Distribution Width SD 44.3 fl (35.1-43.9); Red Blood Count 3.98 M/mm3 (4.6-6.2); White Blood Count 11.2 K/mm3 (4.4-11.0)
[2020-12-30 05:54] LABS: International Normalized Ratio 1.2; Prothrombin Time (Protime)PT. 14.2 SECONDS (11.7-14.9)
[2020-12-30 06:24] LABS: Anion Gap 12 (5-15); BUN 19 mg/dL (7-18); Calcium,Total 8.4 mg/dL (8.5-10.1); Chloride 98 mmol/L (98-107); Cholesterol 169 mg/dL (200); EST Glomerular Filtration Rate 14 mL/min (>60); Est Glom Filt Rate - Afr Amer 17 mL/min (>60); Estimated Creatinine Clearance 18.47 ml/min; Glucose 124 mg/dL (74-106); High Density Lipoprotein 47 mg/dL; Potassium 3.7 mmol/L (3.5-5.1); Sodium Level 136 mmol/L (136-145); Triglycerides 153 mg/dL; Very Low Density Lipoprotein 31 mg/dL (5-40)
[2020-12-30 06:56] LABS: Bedside Glucose 124 mg/dL (70-110)
[2020-12-30 07:41] LABS: Phosphorus 4.2 mg/dL (2.5-4.9)
[2020-12-30] MEDS: hydrALAZINE 50 MG Tablet PO ×3 (09:43→21:09)
[2020-12-30] MEDS: Metoprolol Tartrate 25 MG Tablet PO ×2 (09:43→21:08)
[2020-12-30] MEDS: Aspirin 81 MG TAB.CHEW PO (09:43)
[2020-12-30] MEDS: amLODIPine 10 MG Tablet PO (09:43)
[2020-12-30] MEDS: Fluticasone 0.05% 1 SPRAY NASAL.SRY NASAL (09:44)
--- NOTE | 2020-12-30 11:30 | PCM.PN.REN ---
Subjective Subjective dialysis yesterday with no fluid removed. Still with weakness, slow speech Objective Data Objective Data Vital Signs: Vital Signs Temp Pulse Resp BP Pulse Ox 98.1 F 85 18 176/79 H 97 12/30/20 09:10 12/30/20 11:00 12/30/20 09:10 12/30/20 09:43 12/30/20 09:10 Oxygen Delivery Method Room Air Weight: 102.6 kg Body Mass Index (BMI) 31.4 Intake & Output: Intake and Output for Last 24 Hours 12/28/20 12/29/20 12/30/20 23:59 23:59 23:59 Intake Total 200 / 200 Output Total 0 / 0 Balance 200 / 200 Lab / Micro Data Result Diagrams: 12/30/20 05:20 12/30/20 05:20 Labs: Laboratory Results - last 24 hr 12/29/20 08:50: Phosphorus 7.1 H 12/30/20 05:20: WBC 11.2 H, RBC 3.98 L, Hgb 11.8 L, Hct 35.8 L, MCV 89.9, MCH 29.6, MCHC 33.0, RDW Std Deviation 44.3 H, RDW Coeff of [place] 13.5, Plt Count 269, MPV 10.2, Immature Gran % (Auto) 0.400, Neut % (Auto) 74.9 H, Lymph % (Auto) 9.6 L, [place] % (Auto) 8.0, Eos % (Auto) 6.1 H, Baso % (Auto) 1.0, Absolute Neuts (auto) 8.4 H, Absolute Lymphs (auto) 1.07, Nucleated RBC % 0 12/30/20 05:20: Sodium 136, Potassium 3.7, Chloride 98, Carbon Dioxide 26.0, Anion Gap 12, BUN 19 H, Creatinine 4.70 H, Estim Creat Clear Calc 18.47, Est GFR (MDRD) Af Amer 17 L, Est GFR (MDRD) Non-Af 14 L, BUN/Creatinine Ratio 4.0 L, Glucose 124 H, Calcium 8.4 L, Triglycerides 153, Cholesterol 169, LDL Cholesterol 91, VLDL Cholesterol 31, HDL Cholesterol 47, TSH 65.10 H 12/30/20 05:20: PT 14.2, INR 1.2 12/30/20 05:20: Phosphorus 4.2 12/30/20 06:42: POC Glucose 124 H Radiography Diagnostic Testing: Radiology Impression Chest X-Ray 12/29/20 11:00 IMPRESSION: Normal x-ray examination of the chest. Electronically Signed: Curtis Prieto MD at 11:31 EDT Tel , Service support , Physical Exam Const alert, oriented x3 and no apparent distress Resp clear to auscultation bilaterally GI non-tender and non-distended Palpation: soft Extremity no clubbing, cyanosis or edema Extremity Narrative: AVF left arm +thrill and bruit Assessment & Plan Assessment/Plan (1) ESRD (end stage renal disease) on dialysis: PLAN: continue Tuesday dialysis schedule (2) Acute encephalopathy: PLAN: CT head unremarkable, etiology unclear (3) Diabetes: QUALIFIERS: Diabetes mellitus type: type 2 PLAN: Blood sugar stable (4) Hypertension: QUALIFIERS: Hypertension type: essential hypertension Qualified Code(s): I10 - Essential (primary) hypertension PLAN: Resume home medications, adjust dose as needed (5) Hyperphosphatemia: PLAN: phos stable today (6) Frequent falls: PLAN: Assess with PT primary service management
--- NOTE | 2020-12-30 11:48 | CASEMGMT ---
Addendum entered by Erika Bañuelos 12/30/20 13:20: CHILDERS form completed with brother, Drew Villa, via phone and brother gave permission verbally for signature. Original to chart and copy left in room. Per brother, pt does live alone and is about '60% back to normal' at this time. CM to follow PT/OT evals and for any further discharge planning/needs. Fatih DONOHUE CM Original Note: This RN CM to room and pt is very slow to respond to questions and has difficulty getting out what he wants to say. Pt states he does live at home alone and that he recently fell thru the floor at a store but cannot tell me the name of the store. Pt was seen in the ED for this but it takes him a bit to remember that. This RN CM attempted to reach his brother, Drew, to complete CHILDERS and f/u with discharge plan but Drew did not answer and there is no identification on voicemail so no message left at this time. Per charting, pt with GCS of 13 at this time. CM to follow. Faith DONOHUE CM
[2020-12-30 12:01] LABS: Bedside Glucose 154 mg/dL (70-110)
[2020-12-30] MEDS: Insulin Lispro 100 UNIT/ML INSULN.PEN SC ×3 (12:38→21:16)
--- NOTE | 2020-12-30 12:40 | PN.HOSP_ITS ---
Subjective Subjective Patient seen and examined. He had no complaints today. He however appeared confused, and thought it was Tuesday. He also couldnt tell that he had dialysis yesterday. He described being frustrated because he thought his brother Drew was trying to godfrey him in the hospital. Review of systems otherwise negative. Nurse informed me that per family, patient fell and came to the ED on 12/24/2020. He fell about 5-6 feet and landed directly on his back. He denied hitting his head or loss of consciousness, from the ED documentation. CT of the chest and abdomen as well as pelvis was negative. apart from a 1.4cm nodule in the medial right lower lobe.No CT of the brain was done. Objective Data Objective Data Vital Signs: Vital Signs Temp Pulse Resp BP Pulse Ox 98.1 F 85 18 176/79 H 97 12/30/20 09:10 12/30/20 11:00 12/30/20 09:10 12/30/20 09:43 12/30/20 09:10 Oxygen Delivery Method Room Air Weight: 226 lb 3.108 oz Body Mass Index (BMI) 31.4 Intake & Output: Intake and Output for Last 24 Hours 12/28/20 12/29/20 12/30/20 23:59 23:59 23:59 Intake Total 320 / 320 Output Total 475 / 475 Balance -155 / -155 Lab / Micro Data Result Diagrams: 12/30/20 05:20 12/30/20 05:20 Labs: Laboratory Results - last 24 hr 12/30/20 05:20: WBC 11.2 H, RBC 3.98 L, Hgb 11.8 L, Hct 35.8 L, MCV 89.9, MCH 29.6, MCHC 33.0, RDW Std Deviation 44.3 H, RDW Coeff of [place] 13.5, Plt Count 269, MPV 10.2, Immature Gran % (Auto) 0.400, Neut % (Auto) 74.9 H, Lymph % (Auto) 9.6 L, [place] % (Auto) 8.0, Eos % (Auto) 6.1 H, Baso % (Auto) 1.0, Absolute Neuts (auto) 8.4 H, Absolute Lymphs (auto) 1.07, Nucleated RBC % 0 12/30/20 05:20: Sodium 136, Potassium 3.7, Chloride 98, Carbon Dioxide 26.0, Anion Gap 12, BUN 19 H, Creatinine 4.70 H, Estim Creat Clear Calc 18.47, Est GFR (MDRD) Af Amer 17 L, Est GFR (MDRD) Non-Af 14 L, BUN/Creatinine Ratio 4.0 L, Glucose 124 H, Calcium 8.4 L, Triglycerides 153, Cholesterol 169, LDL Cholesterol 91, VLDL Cholesterol 31, HDL Cholesterol 47, TSH 65.10 H 12/30/20 05:20: PT 14.2, INR 1.2 12/30/20 05:20: Phosphorus 4.2 12/30/20 06:42: POC Glucose 124 H 12/30/20 11:49: POC Glucose 154 H Physical Exam Const alert and no apparent distress Orientation / Consciousness: confused Exam Limitations: altered mental status HEENT head/scalp atraumatic, moist oral mucous membranes and oropharynx normal Head and Scalp: normocephalic Eyes PERRL, EOMs intact bilaterally and conjunctivae normal Neck no lymphadenopathy, supple, no JVD and no carotid bruits Resp normal respiratory effort, no retractions, no use of accessory muscles and clear to auscultation bilaterally Cardio regular rate, regular rhythm, S1 normal heart sound, S2 normal heart sound and no murmurs GI normal to inspection, nondistended, normoactive bowel sounds, soft to palpation, non-tender and non-distended Extremity normal to inspection, full ROM and no clubbing, cyanosis or edema Peripheral Pulses: Yes pulses 2+ throughout Skin no rashes or lesions noted Skin Narrative: has AV fistula in E Neuro CN's II-XII intact bilaterally, moves all extremities and no focal motor deficits Sensorium / Orientation: awake, alert, oriented to person and oriented to place Psych affect normal Assessment & Plan Assessment/Plan (1) Altered mental state: (2) ESRD on hemodialysis: (3) Frequent falls: (4) Incidental lung nodule: PLAN: #Acute metabolic encephalopathy due to missed dialysis * patient had dialysis yesterday * he still does seem a bit confused, and doesnt remember if he had dialysis * PT/OT on board. Fall precautions * he did have a fall on 12/24/2020; he didnt have a head CT at that time as he said he didnt hit his head. * in light of his ongoing confusion, i think it is prudent to order a CT of the brain without contrast to rule out any subacute brain blee, especially as he is also on coumadin * #ESRD * nephrology on board * had dialysis yesterday; nephrology to decide if he is to have dialysis again today * * #Right lung nodule * incidental finding per CT chest done as part of screening after mechanical fall * to follow up with PCP for referral to accounts receivable accountant for further monitoring and management as needed * #Hypothyroidism: on synthroid #Diabetes mellitus: on ISS. Accuchecks ACHS #History of Crohn's disease: s/p surgery in the past #History of afib: * on coumadin. INR is 1.2. get CT of the brain to rule out subacute brain bleed and if negative, adjust coumadin dose. * #CAD * Previous cardiac cath for non-STEMI in August 2020 showed [place] multivessel coronary artery disease and plan is for medical management * On aspirin, metoprolol, atorvastatin and amlodipine. * VT prophylaxis; lovenox Charges/Coding Visit Charges Inpatient E&M: 78026 Subs Hosp L2
--- NOTE | 2020-12-30 13:03 | CT_ITS ---
STUDY: CT BRAIN WITHOUT CONTRAST REASON FOR EXAM: Male, 55 years old. altered mental status, history of recent fall RADIATION DOSAGE (If Supplied By Facility): CTDIvol = ( 44.99 ) mGy, DLP = ( 863.60 ) mGycm TECHNIQUE: Transaxial CT imaging of the brain was performed without administration of intravenous contrast material. Individualized dose optimization techniques were used for this CT. COMPARISON: 12/29/2020 FINDINGS: Normal soft tissue structures. Normal calvarium. Normal size ventricles and extra-axial spaces for the patient''s age. Normal white matter tracts of the cerebral hemispheres. Normal basal ganglia and thalami. Normal brainstem. Normal cerebellum. There is no intracranial hemorrhage. There are no findings of an acute ischemic infarction. Normal visualized paranasal sinuses. CT/Brain/Head without Contrast IMPRESSION: Normal unenhanced CT scan of the brain. Electronically Signed: Curtis Prieto MD at 13:47 EDT Tel , Service support ,
[2020-12-30] MEDS: Lactulose 20 GM/30 ML UDC 10 GM PO ×2 (15:05→21:17)
[2020-12-30 17:07] LABS: T4 Free Direct 0.88 ng/dL (0.76-1.46)
[2020-12-30 17:51] LABS: Bedside Glucose 295 mg/dL (70-110)
[2020-12-30] MEDS: Atorvastatin Calcium 40 MG Tablet PO (21:08)
[2020-12-30] MEDS: 0.9% Saline Lock 10 ML Syringe IV (21:21)
[2020-12-30 23:36] LABS: Bedside Glucose 252 mg/dL (70-110)
[2020-12-31] VITALS (11 sets, daily range): BP systolic 155–171; BP diastolic 59–76; PULSE 69–77; RESP 18; TEMP 36.5–36.6; O2SAT 94–97
[2020-12-31 00:27] LABS: Bacteria 0 SEEN /hpf (None Seen); Mucous, Urine 0 SEEN /hpf (<or=2+); Red Blood Cells-Urine 0 SEEN /hpf (0-5); Squamous Epithelial Cells - UA 0 SEEN /hpf (0-5)
[2020-12-31 00:41] LABS: Color, Urine Yellow (Yellow); Glucose, Dipstick 1000 mg/dl (Normal); Ketone-Dipstick 15 mg/dl (Negative); Leukocyte Esterase-Dipstick Negative /ul (Negative); Nitrite-Dipstick Negative (Negative); Occult Blood-Urine 10 /ul (Negative); Protein-Dipstick 500 mg/dl (Negative); Specific Gravity, Urine 1.015 (1.002-1.030); Urine Bilirubin Dipstick Negative (Negative); Urine Clarity Clear (Clear); Urine Urobilinogen Normal (Normal)
[2020-12-31 00:46] LABS: Hyaline Cast 0-5 SEEN /lpf (0-5)
[2020-12-31 00:47] LABS: White Blood Cells 0-5 SEEN /hpf (0-5)
[2020-12-31 06:00] LABS: Absolute Lymphocyte Count 1.39 X10^3/uL (0.83-4.51); Basophil# 0.08 X10^3/uL; Basophil% 0.8 % (0-1); Eosinophils% 5.9 % (0-5); Hematocrit 35.7 % (40-54); Hemoglobin 11.7 g/dL (13.0-16.5); Lymphocyte # 1.39 X10^3/ul (0.83-4.51); Lymphocyte % 13.6 % (19-41); Mean Corp Hgb Conc 32.8 g/dL (32-36); Mean Corpuscular Hgb 29.3 pg (27.0-32.0); Mean Corpuscular Volume 89.5 fL (80-94); Mean Platelet Vol. 10.2 fl (6.2-12.0); Monocyte% 10.8 % (0-10); NRBC Flagged by Analyzer 0 % (0-5); Neutrophil # 6.99 X10^3/uL (2.7-7.7); Neutrophil % 68.4 % (47-70); Platelet Count 277 K/mm3 (150-450); RBC Distribution Width CV 13.6 % (11.6-14.6); RBC Distribution Width SD 44.2 fl (35.1-43.9); Red Blood Count 3.99 M/mm3 (4.6-6.2); White Blood Count 10.2 K/mm3 (4.4-11.0)
[2020-12-31 06:13] LABS: International Normalized Ratio 1.3; Prothrombin Time (Protime)PT. 15.1 SECONDS (11.7-14.9)
[2020-12-31] MEDS: Levothyroxine 50 MCG Tablet PO (06:13)
[2020-12-31] MEDS: hydrALAZINE 50 MG Tablet PO (06:13)
[2020-12-31] MEDS: Lactulose 20 GM/30 ML UDC 10 GM PO (06:13)
[2020-12-31] MEDS: Insulin Lispro 100 UNIT/ML INSULN.PEN SC (06:15)
[2020-12-31 06:36] LABS: Bedside Glucose 213 mg/dL (70-110)
[2020-12-31 06:39] LABS: Anion Gap 11 (5-15); BUN 34 mg/dL (7-18); BUN/Creat Ratio 5.4 RATIO (10-20); Calcium,Total 8.8 mg/dL (8.5-10.1); Chloride 95 mmol/L (98-107); Creatinine, Serum 6.28 mg/dL (0.70-1.30); EST Glomerular Filtration Rate 10 mL/min (>60); Est Glom Filt Rate - Afr Amer 12 mL/min (>60); Estimated Creatinine Clearance 13.82 ml/min; Glucose 208 mg/dL (74-106); Potassium 3.7 mmol/L (3.5-5.1); Sodium Level 133 mmol/L (136-145)
[2020-12-31] MEDS: Metoprolol Tartrate 25 MG Tablet PO (08:08)
[2020-12-31] MEDS: amLODIPine 10 MG Tablet PO (08:08)
[2020-12-31] MEDS: Aspirin 81 MG TAB.CHEW PO (08:09)
[2020-12-31] MEDS: Fluticasone 0.05% 1 SPRAY NASAL.SRY NASAL (08:09)
--- NOTE | 2020-12-31 11:10 | CASEMGMT ---
Addendum entered by Rosemary Muñoz 12/31/20 15:20: Pt qualifies for a Palliative referral per the [facility] palliative screening tool at this time. ?? Zaida Wynn aware but is not agreeable to Palliative referral at this time. ? Original Note: RN CM ZIPPER LINING FOLDER CM to room to meet with patient for initial transition planning/care coordination assessment. RN CM introduced self and role at [facility]. Pt voices understanding and consents to assessment at this time. Pt resting in bed in no distress at this time. Pt's mother @ bedside and pt agreeable to her being present during assessment. Pt is A/O at this time and answers all questions appropriately, although some questions he answered slowly and speech/response slow. Pt states he feels he is at his baseline. Per pt's mother, she feels pt is almost back to his baseline, stating, except he is talking a little slower. Pt able to recall most recent events/history correctly. Care providers, pharmacy, and demographics verified/updated at this time. PCP: Marge King NP Specialists: Dr Welch-nephrology. Pt goes to [facility] for dialysis MWF. Chair time @ 0600. [facility] Pharmacy[facility] Insurance: My Care [facility] Prescription Benefit: Yes Living Will/HPOA: Pt states he has a LW and HPOA, who is his sister, Leatha. He states he had them completed when he was in [place]. Pt made aware these do not transfer from state to [facility]. He is interested in completing new AD. Pt made aware will be notified of same. Pt made aware, if she is unable to meet w/him today prior to being discharged, that he can contact SW as an out-pt and make appt in the future if he decides he would like to talk with someone about this or would like to utilize [facility] social work for advanced directive completion. Pt and mother express understanding. LNOK: Mother. Sister, Leatha. Brother, Drew Living Arrangements: Lives alone in 2-story home w/2 steps to enter. Pt was independent prior to recent fall down a hole in the naz at a store. Pt states gait has been unsteady at times and he has fallen @ home since. He states this has improved and states, I feel safe going back home. I feel comfortable the way I am now. Family supportive. Transportation: Pt was driving prior to fall. Family able to assist as needed. Pt's mother states she can take pt to dialysis today after d/c from hospital DME: States has the following DME: CGM (continuous glucose monitor) and glucometer Pt states no need for further DME at this time. HHC/SNF: No hx of either. Pt denies need for HHC. Pt wishes to return home and states has no concerns with going home at time of discharge. CM to follow for any discharge planning/needs. Pt and mother voice no concerns/needs at this time. Advised pt/mother to ask for CM if any questions/concerns/needs arise. They voice understanding. PLAN: Home w/family support and discharge plans in place. Nikos REYES RN CM
--- NOTE | 2020-12-31 11:13 | CASEMGMT ---
Call to Jamison at [facility] and he states that they can run pt today and he would just need to be to clinic by [address] Wynn aware and she states she will discharge pt to go to OP dialysis center today. Pt/mother updated and mother states she can transport pt there at discharge. Pt voices understanding and states no further questions/concerns/needs. Faith DONOHUE CM
--- NOTE | 2020-12-31 11:31 | DS.PCM_ITS ---
Providers Date of Admission: 12/30/20 Primary Care Physician: LEONOR Mike Consultations 12/29/20 12:49 Consult: Nephrology Routine Consulting Provider: Suzette Mancini Reason for Consult: ESRD ON HD, Missed HD EMERGENT Consult: No MD Notified: Yes Date Notified: 12/29/20 Time Notified: 12:49 Method of Notification: Text Reason For Visit: AMS, MISSED HD Diagnosis Discharge Diagnosis (1) Altered mental state: Status: Acute Code(s): R41.82 - Altered mental status, unspecified (2) ESRD on hemodialysis: Status: Acute Code(s): N18.6 - End stage renal disease; Z99.2 - Dependence on renal dialysis (3) Frequent falls: Status: Acute Code(s): R29.6 - Repeated falls (4) Incidental lung nodule: Status: Acute Code(s): R91.1 - Solitary pulmonary nodule Medications at Discharge Home Medications esomeprazole magnesium 20 mg PO PRN PRN 05/06/19 amlodipine 10 mg PO DAILY #30 tab 05/11/19 levothyroxine 25 mcg tablet 50 mcg PO DAILY tab 07/13/19 fluticasone propionate 1 spray NASAL DAILY 03/05/20 lactulose 10 gm PO PRN PRN 03/05/20 acetaminophen 500 mg PO Q6H PRN PRN 08/26/20 insulin NPH isoph U-100 human See Protocol SQ PRN PRN 08/26/20 aspirin 81 mg PO DAILY@0800 #90 tab.chew 08/28/20 loratadine-pseudoephedrine 1 each PO DAILY #7 tab.er.24h 08/28/20 metoprolol tartrate 25 mg PO BID #60 tablet 08/28/20 oxymetazoline 15 ml NS BID #1 spray 08/28/20 atorvastatin 40 mg PO QHS #30 tablet 08/29/20 warfarin 4 mg tablet 4 mg PO .COMPLEX #45 tablet 09/02/20 Hospital Course Operations None Procedures Dialysis Summary of Care Provided Minutes Spent on Discharge: 40 Hospital Course: Patient is a 55-year-old male with an extensive past medical history as outlined which includes ESRD on hemodialysis was admitted via the ED on 12/29/2020 with a complaint of altered mental status and mechanical fall. Patient had missed his dialysis appointment on the day of admission. Patient had last been admitted in August 2020 for non-STEMI and cardiac cath showed [place] multivessel coronary artery disease but plan was for medical management. Patient has also had a fall on 12/28/2020 after he fell while he was in his shop. Apparently he did not hit his head and he came into the ED where he CT of the chest abdomen and pelvis was essentially unremarkable apart from finding of a pulmonary nodule in the right. He was brought in on account of the confusion. He was admitted and managed for acute metabolic encephalopathy which was thought to be due to him missing dialysis. Nephrology was consulted. Patient was on Coumadin on account of a history of A. fib. INR was subtherapeutic. Nephrology was consulted and patient had dialysis. His mentation subsequently improved though he still did have some confusion. A CT of the brain was therefore done to rule out any subacute brain bleed and this was negative for any evidence of brain bleed. Patient's mentation improved significantly after he had dialysis and he felt well. Patient therefore remained stable and was discharged home on 12/31/2020 and is to continue with dialysis on outpatient basis. He is follow-up with his primary care doctor and cork cutter in 1 to 2 weeks. Of note, CT of the chest done after he had his mechanical fall showed a right lung nodule and he is to follow-up with his PCP for referral to communications superintendent as needed for further evaluation and follow-up. Patient seen and examined prior to discharge. He had no complaints and felt well. Review of systems otherwise negative. Labs and vitals reviewed. Home medication reviewed and reconciled. Physical Exam Const alert, oriented x3 and no apparent distress General Appearance: cooperative, comfortable and well kempt Orientation / Consciousness: awake Exam Limitations: no limitations HEENT normocephalic, head/scalp atraumatic, moist oral mucous membranes and oropharynx normal Eyes PERRL, EOMs intact bilaterally and conjunctivae normal Neck no lymphadenopathy, supple, no JVD and no carotid bruits Resp normal respiratory effort, no retractions, no use of accessory muscles and clear to auscultation bilaterally Cardio regular rate, regular rhythm, S1 normal heart sound, S2 normal heart sound and no murmurs GI normal to inspection, nondistended, normoactive bowel sounds, soft to palpation, non-tender and non-distended Extremity normal to inspection, full ROM and no clubbing, cyanosis or edema Skin no rashes or lesions noted Skin Narrative: has AV fistula in LUE Neuro oriented x3, CN's II-XII intact bilaterally, moves all extremities and no focal motor deficits Sensorium / Orientation: awake and alert Psych affect normal Medical Records Data Medical Nutrition Assessment Dietitian: Nutrition Therapy Diagnosis Start: 12/30/20 18 :19 Freq: Status: Active Protocol: Document 12/30/20 18:37 RMA (Rec: 12/30/20 18:38 RMA [id number]) Nutrition Malnutrition Evidence of Malnutrition Exists No Clinical Problem Altered Nutrient-Related Laboratory Values Etiology related to CKD stage5/HD Signs/Symptoms as evidenced by BUN 19/creat 4 .70 Status Active Problem Recommendation Dietitian Recommendations/Changes Will change diet to Cardiac/ Carbohydrate-Controlled/Renal (no protein restriction). Weight / BMI Weight Weight: 229 lb 0.964 oz Body Mass Index (BMI) 31.4 ABG / Lab / Microbiology Data Result Diagrams: 12/31/20 05:42 12/31/20 05:42 Laboratory: Laboratory Results - last 24 hr 12/30/20 05:20: Free T4 0.88 12/30/20 11:49: POC Glucose 154 H 12/30/20 17:34: POC Glucose 295 H 12/30/20 21:05: POC Glucose 252 H 12/31/20 00:00: Urine Color Yellow, Urine Clarity Clear, Urine pH 7.0, Ur Specific [place] 1.015, Urine Protein 500 H, Urine Glucose (UA) 1000 H, Urine Ketones 15 H, Urine Occult Blood 10 H, Urine Nitrite Negative, Urine Bilirubin Negative, Urine Urobilinogen Normal, Ur Leukocyte Esterase Negative, Urine RBC 0 SEEN, Urine WBC 0-5 SEEN, Ur Squamous Epith Cells 0 SEEN, Urine Bacteria 0 SEEN, Hyaline Casts 0-5 SEEN, Urine Mucus 0 SEEN 12/31/20 05:42: PT 15.1 H, INR 1.3 12/31/20 05:42: WBC 10.2, RBC 3.99 L, Hgb 11.7 L, Hct 35.7 L, MCV 89.5, MCH 29.3, MCHC 32.8, RDW Std Deviation 44.2 H, RDW Coeff of [place] 13.6, Plt Count 277, MPV 10.2, Immature Gran % (Auto) 0.500, Neut % (Auto) 68.4, Lymph % (Auto) 13.6 L, [place] % (Auto) 10.8 H, Eos % (Auto) 5.9 H, Baso % (Auto) 0.8, Absolute Neuts (auto) 7.0, Absolute Lymphs (auto) 1.39, Nucleated RBC % 0 12/31/20 05:42: Sodium 133 L, Potassium 3.7, Chloride 95 L, Carbon Dioxide 27.0, Anion Gap 11, BUN 34 H, Creatinine 6.28 H, Estim Creat Clear Calc 13.82, Est GFR (MDRD) Af Amer 12 L, Est GFR (MDRD) Non-Af 10 L, BUN/Creatinine Ratio 5.4 L, Glucose 208 H, Calcium 8.8 12/31/20 06:12: POC Glucose 213 H Radiography Diagnostic Testing: Radiology Impression Brain CT 12/30/20 13:03 IMPRESSION: Normal unenhanced CT scan of the brain. Electronically Signed: Curtis Prieto MD at 13:47 EDT Tel , Service support , D/C Instructions Discharge Diet: Renal Diet Discharge Activity: Return to Normal Activity Weight Bearing Status: Weight bearing as tolerated Call your doctor if you observe: Fever of 101 or Higher, Shortness of breath, Dizziness, Swelling in the ankles, Uncontrolled pain and - (confusion) Meaningful Use Info Meaningful Use Diagnoses (Choose all that apply): None applicable Discharge Plan Admission Admit Date/Time: 12/30/20 14:52 Primary Reason for Your Visit: acute metabolic encephalopathy Attending Provider: Roro Wynn Primary Care Provider: Marge King NP Consulting Providers: Suzette Mancini Instructions Patient Instructions: What is Delirium?, ED Confusion, ED Fall Prevention, ED Fall Dizziness Weakn Balance Additional Instructions / Restrictions: to take 10mg of coumadin today, then resume with usual dosage of coumadin tomorrow. To follow up with PCp for monitoring of INR on outpatient basis to ensure INR is within therapeutic range. Discharge Orders/Prescriptions Prescriptions: Continued esomeprazole magnesium 20 MG capsule,delayed release(DR/EC) 20 mg PO PRN PRN (Reason: GERD) RF: 0 amlodipine 10 MG tablet 10 mg PO DAILY Qty: 30 RF: 0 levothyroxine 25 mcg tablet 50 mcg PO DAILY RF: 0 fluticasone propionate 1 SPRAY spray,suspension 1 spray NASAL DAILY RF: 0 lactulose 10 GM/15 ML solution 10 gm PO PRN PRN (Reason: Constipation) RF: 0 acetaminophen 500 MG tablet 500 mg PO Q6H PRN PRN (Reason: Pain 1-10 Or Fever) RF: 0 insulin NPH isoph U-100 human 100 UNIT/ML suspension See Protocol unit SQ PRN PRN (Reason: diabetes) RF: 0 aspirin 81 MG tablet,chewable 81 mg PO DAILY@0800 Qty: 90 RF: 0 metoprolol tartrate 25 MG tablet 25 mg PO BID Qty: 60 RF: 0 oxymetazoline 15 ML spray,non-aerosol 15 ml NS BID Qty: 1 RF: 0 loratadine-pseudoephedrine 1 EACH tablet extended release 24 hr 1 each PO DAILY Qty: 7 RF: 0 atorvastatin 40 MG tablet 40 mg PO QHS Qty: 30 RF: 1 warfarin 4 mg tablet 4 mg PO .COMPLEX Qty: 45 RF: 11 Referrals / Follow Up: Suzette Mancini DO [STAFF PHYSICIAN] - Within 2 Weeks Marge King [employer]ICE PRESIDENT [employer], [employer] [Primary Care Provider] - Within 2 Weeks Disposition Disposition (needs filled in before D/C Order can be placed): Home, Self Care Charges/Coding Visit Charges Inpatient E&M: 52356 Disch Hosp
--- NOTE | 2020-12-31 13:59 | PN.RENAL_ITS ---
Subjective Subjective more alert today, labs reviewed. Discharged to home with dialysis arranged at [facility] unit this afternoon Objective Data Objective Data Vital Signs: Vital Signs Temp Pulse Resp BP Pulse Ox 97.7 F L 77 18 171/76 H 97 12/31/20 11:55 12/31/20 11:55 12/31/20 11:55 12/31/20 11:55 12/31/20 11:55 Oxygen Delivery Method Room Air Weight: 103.9 kg Body Mass Index (BMI) 31.4 Intake & Output: Intake and Output for Last 24 Hours 12/29/20 12/30/20 12/31/20 23:59 23:59 23:59 Intake Total 680 / 680 Output Total 475 / 475 Balance 205 / 205 - Lab / Micro Data Result Diagrams: 12/31/20 05:42 12/31/20 05:42 Labs: Laboratory Results - last 24 hr 12/30/20 05:20: Free T4 0.88 12/30/20 17:34: POC Glucose 295 H 12/30/20 21:05: POC Glucose 252 H 12/31/20 00:00: Urine Color Yellow, Urine Clarity Clear, Urine pH 7.0, Ur Specific [place] 1.015, Urine Protein 500 H, Urine Glucose (UA) 1000 H, Urine Ketones 15 H, Urine Occult Blood 10 H, Urine Nitrite Negative, Urine Bilirubin Negative, Urine Urobilinogen Normal, Ur Leukocyte Esterase Negative, Urine RBC 0 SEEN, Urine WBC 0-5 SEEN, Ur Squamous Epith Cells 0 SEEN, Urine Bacteria 0 SEEN, Hyaline Casts 0-5 SEEN, Urine Mucus 0 SEEN 12/31/20 05:42: PT 15.1 H, INR 1.3 12/31/20 05:42: WBC 10.2, RBC 3.99 L, Hgb 11.7 L, Hct 35.7 L, MCV 89.5, MCH 29.3, MCHC 32.8, RDW Std Deviation 44.2 H, RDW Coeff of [place] 13.6, Plt Count 277, MPV 10.2, Immature Gran % (Auto) 0.500, Neut % (Auto) 68.4, Lymph % (Auto) 13.6 L, [place] % (Auto) 10.8 H, Eos % (Auto) 5.9 H, Baso % (Auto) 0.8, Absolute Neuts (auto) 7.0, Absolute Lymphs (auto) 1.39, Nucleated RBC % 0 12/31/20 05:42: Sodium 133 L, Potassium 3.7, Chloride 95 L, Carbon Dioxide 27.0, Anion Gap 11, BUN 34 H, Creatinine 6.28 H, Estim Creat Clear Calc 13.82, Est GFR (MDRD) Af Amer 12 L, Est GFR (MDRD) Non-Af 10 L, BUN/Creatinine Ratio 5.4 L, Glucose 208 H, Calcium 8.8 12/31/20 06:12: POC Glucose 213 H Physical Exam Const alert and oriented x3 Extremity no clubbing, cyanosis or edema Neuro Sensorium / Orientation: awake and alert Psych cooperative Assessment & Plan Assessment/Plan (1) ESRD (end stage renal disease) on dialysis: PLAN: continue Tuesday dialysis scheduled at chronic center later today (2) Acute encephalopathy: PLAN: CT head unremarkable, may be from concusion from recent fall in store (3) Diabetes: QUALIFIERS: Diabetes mellitus type: type 2 PLAN: Blood sugar stable (4) Hypertension: QUALIFIERS: Hypertension type: essential hypertension Qualified Code(s): I10 - Essential (primary) hypertension PLAN: Resume home medications, adjust dose as needed (5) Frequent falls: PLAN: Assess with PT primary service management
--- NOTE | 2021-01-01 13:23 | CASEMGMT ---
CHARANJIT STRATTON Discharge Follow-up Phone Call: SABINE: Junior Strata: 3 Call Date: 01/01/21 Discharge Date: 12/31/20 Time of Call: 1320 Duration: 5 Admitting Diagnosis: AMS, missed HD CHARANJIT STRATTON completed follow-up phone call after recent hospitalization. Patient states he is doing much better. Patient has follow-up appts scheduled. Patient had no questions or concerns regarding discharge instructions. Patient has been HD. Patient had no further questions or concerns at this time. Patient does comment that the nursing staff provided excellent care.
== END 2020-12-31 13:50 | disposition home or self-care (01) | DRG 70 ==
LOC: ED 09:39 → PCU 12:06
PROVIDERS: Internal Medicine Nephrology; Admitting Provider Internal Medicine; Emergency Provider Emergency Medicine; PCP Nurse Practitioner Family; Visit Provider Student in an Organized Health Care Education/Training Program
DX: G93.41 Metabolic encephalopathy (principal); N18.6 End stage renal disease; I12.0 Hypertensive chronic kidney disease with stage 5 chronic kidney disease or end stage renal disease; K50.90 Crohn's disease, unspecified, without complications; Z99.2 Dependence on renal dialysis; E11.22 Type 2 diabetes mellitus with diabetic chronic kidney disease; Z79.01 Long term (current) use of anticoagulants; Z79.4 Long term (current) use of insulin; Z79.899 Other long term (current) drug therapy; Z87.891 Personal history of nicotine dependence; R29.6 Repeated falls; I25.10 Atherosclerotic heart disease of native coronary artery without angina pectoris; I48.0 Paroxysmal atrial fibrillation; I25.2 Old myocardial infarction; E03.9 Hypothyroidism, unspecified; E83.39 Other disorders of phosphorus metabolism; R91.1 Solitary pulmonary nodule
CPT/HCPCS: 36415; 70450; 71045; 80048; 80053; 80061; 81001; 82962; 83735; 84100; 84439; 84443; 84484; 85025; 85610; 87040; 90937; 93005; 97162; 97167; 99285; J7030; A4216; G0257

== ENCOUNTER → 2021-03-19 13:04 | Outpatient (CLI) | payer MEDICARE, MEDICAID, SELFPAY ==
--- NOTE | 2021-03-19 15:26 | PFTCOMP_ITS ---
COMPLETE PULMONARY FUNCTION TEST INTERPRETATION Brief HPI: Patient is a 56 year old male, currently under the care of myself, who presents to [facility] for complete pulmonary function tests secondary to diagnosis of pulmonary nodule. Respiratory therapist reports good effort and reproducible results. Interpretation: Forced expiration spirometry shows no large airways obstructive ventilatory defect with an FEV1 of 70% predicted. There is no significant bronchodilator response by strict ATS criteria. Spirograms are of good quality and plateau normally. The respiratory flow volume loop shows a normal pattern. Lung volumes by body plethysmography show decreased total lung capacity at 4.81 L, 69% predicted. All other lung volumes are reduced symmetrically. Diffusion capacity by carbon monoxide is at the lower limit of normal at 70% predicted. The airway resistance is slightly elevated. No previous pulmonary function tests were available for review. Impression: Mild restrictive ventilatory defect with a symmetric reduction diffusing capacity
== END ==
PROVIDERS: PCP Nurse Practitioner Family; Visit Provider Internal Medicine Critical Care Medicine
DX: R91.1 Solitary pulmonary nodule (principal)
CPT/HCPCS: 94060; 94726; 94729

== ENCOUNTER → 2021-04-27 14:42 | Outpatient (CLI) | payer MEDICARE, MEDICAID, SELFPAY ==
--- NOTE | 2021-04-27 14:44 | CT_ITS ---
STUDY: CT Chest W/O Contrast Injection 04/27/2021 3:10 PM REASON FOR EXAM: Male, 56 years old. Lung nodule Individualized dose optimization techniques were used for this CT. TECHNIQUE: Transaxial imaging was performed withoutIV contrast material. COMPARISON: 8.4.21 FINDINGS: There are degenerative changes of the shoulders. There is no pneumothorax. There are bilateral pleural effusions. There is bilateral pneumonia. There is a 9.7 x 12 mm right lower lobe nodule. SE:4 IM: 70/135. There are calcifications of the coronary arteries. Normal mediastinum. Normal hilar regions. Normal pulmonary arteries. There is atherosclerotic calcification of the aortic arch with tortuosity and elongation of the aortic arch and descending thoracic aorta. There are multi-level degenerative changes of the thoracic spine. There are stones in the gallbladder. If cholecystitis is suspected, recommend further imaging such as a HIDA scan with CCK. T9 compression fracture. CT/Chest without Contrast IMPRESSION: 9.7 x 12 mm right lower lobe nodule. This is stable in size. There are bilateral pleural effusions. There is bilateral pneumonia. Gallstones. T9 compression fracture is stable. Electronically Signed: Tanner Werner MD at 15:20 EST , Service support ,
== END ==
PROVIDERS: PCP Nurse Practitioner Family; Referring Provider Internal Medicine Critical Care Medicine; Visit Provider Internal Medicine Critical Care Medicine
DX: R91.1 Solitary pulmonary nodule (principal)
CPT/HCPCS: 71250

== ENCOUNTER 2021-06-12 11:04 | Day surgery (SDC) | payer MEDICARE, MEDICAID, SELFPAY ==
--- NOTE | 2021-06-12 11:12 | HP.PCM_ITS ---
History and Physical Date of Admission: 06/12/21 Intake Visit Reasons: FISTULAGRAM Chief Complaint: F/U Lung Nodule Allergies No Known Allergies Allergy (Verified 05/26/21 13:45) Medications esomeprazole magnesium 20 mg PO PRN PRN 05/06/19 [History Confirmed 05/26/21] amlodipine 10 mg PO DAILY #30 tab 05/11/19 [Rx Confirmed 05/26/21] levothyroxine 25 mcg tablet 50 mcg PO DAILY tab 07/13/19 [History Confirmed 05/26/21] fluticasone propionate 1 spray NASAL DAILY 03/05/20 [History Confirmed 05/26/21] lactulose 10 g PO PRN PRN 03/05/20 [History Confirmed 05/26/21] acetaminophen 500 mg PO Q6H PRN PRN 08/26/20 [History Confirmed 05/26/21] insulin NPH isoph U-100 human See Protocol SQ PRN PRN 08/26/20 [History Confirmed 05/26/21] aspirin 81 mg PO DAILY@0800 #90 tab.chew 08/28/20 [Rx Confirmed 05/26/21] oxymetazoline 15 ml NS BID #1 spray 08/28/20 [Rx Confirmed 05/26/21] atorvastatin 40 mg PO QHS #30 tablet 08/29/20 [Rx Confirmed 05/26/21] metoprolol tartrate 25 mg tablet 25 mg PO DAILY tab 03/13/21 [History Confirmed 05/26/21] sitagliptin 25 mg tablet 25 mg PO DAILY tab 03/13/21 [History Confirmed 05/26/21] [facility] Medical History (Updated 05/26/21 @ 15:36 by Ivett LOZADA, PA-C) Arterial steal syndrome Atherosclerotic heart disease of [place] coronary artery without angina pectoris Atrial fibrillation Chronic renal failure, stage 5 Crohn's disease Diabetes ESRD (end stage renal disease) on dialysis ESRD on hemodialysis Frequent falls Hyperphosphatemia Hypertension 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 Patient has a left upper arm brachial to cephalic arteriovenous fistula. He dialyzes on M, W, F. He notes minimal amount of discomfort of the fistula site. He notes increased post-treatment bleeding time. He has never had a fistulogram previously. ROS General General: No weight change, appetite, fatigue, colon cancer, breast cancer or weakness HEENT HEENT: No difficulty swallowing, eye injury, eye surgery, swollen glands or hoarseness Endo Endocrine: No thyroid disease, diabetes mellitus, thyroid cancer, Hair loss, heat intolerance or cold intolerance Skin Skin: No rash or changing moles Breast Breast: No left breast lump, right breast lump, nipple discharge, breast pain, abnormal mammogram, abnormal US or breast enlargement Musc Musculoskeletal: No back problems, arthritis, rheumatoid arthritis, gout or joint pain Cardio Cardiovascular: Yes heart disease, high blood pressure and heart attack; No murmur, pacemaker, atrial fibrillation, heart stent, palpitations, shortness of breat with exertion or chest pain Psych Psychiatric: No depression, anxiety or hearing voices Resp Respiratory: No shortness of breath, No sleep apnea, No cough, No COPD, No asthma, No emphysema and No wheezing Gastro Gastrointestinal: No abdominal pain, No nausea or vomiting, No diarrhea, No constipation, No blood in stool, No acid reflux, No hemorrhoids, No ulcers, No gallbladder problem and No black,tarry stools Jase Hematologic: Yes blood thinners, No blood disorders, No bleeding, No anemia and No blood clots Neuro Neurologic: No system reviewed and no additional complaints, except as documented, No as per HPI, No abnormal gait, No abnormal hearing, No abnormal movements, No abnormal speech, No behavioral changes, No burning sensations, No confusion, No convulsions, No disequilibrium, No dizziness, No localized weakness, No frequent falls, No headache(s), No lack of coordination, No loss of vision, No memory loss, No numbness, No other visual disturbances, No radicular pain, No restless legs, No sensory deficit, No syncope, No tingling, No tremor(s), No weakness and No other Exam Const General: cooperative, healthy appearing, comfortable and no acute distress [facility] Head: normal to inspection Eyes General: appearance normal, both eyes and all related structures Neck Neck: normal visual inspection Neck mass: No Resp Effort & Inspection: normal respiratory effort Auscultation: clear to auscultation bilaterally Cardio Rate: regular rate Rhythm: regular rhythm GI Inspection: normal to inspection Palpation: soft Auscultation: normal bowel sounds Musc Cervical Spine: normal cervical lordosis Skin General: no rashes or lesions noted Neuro General: no focal motor deficits and CN's II-XI intact bilaterally Extrem Other: Left upper extremity AV fistula- good pulse, bruit and thrill. Slightly diminished bruit. Psych Appearance: grossly normal Affect: normal affect COVID (Procedure Consent) Procedure Criteria Procedure Criteria: Yes Elective The surgeon/proceduralist and patient have discussed in detail the risk of exposure to and/or potential harm posed by the COVID-19 virus with having a surgery/procedure at this time versus the risk of delaying the surgery/procedure. It is not possible to know either the risk of delaying the surgery or procedure or chance of getting an infection with perfect accuracy, but a joint decision was made between the patient and the surgeon/proceduralist to proceed at this time with the scheduled surgery/procedure as indicated on the consent form. Assessment and Plan Assessment and Plan (1) Problem with dialysis access: Status: Acute Qualifiers: Encounter type: initial encounter Qualified Code(s): T82.898A - Other specified complication of vascular prosthetic devices, implants and grafts, initial encounter Plan - Ivett LOZADA PA-C: Dr. Red will plan to perform a left upper extremity fistulogram. Procedure details, risks and benefits have been explained. Patient has had the opportunity to ask and have questions answered. Patient verbally understands and agrees with the plan. Patient will continue to take his aspirin from the procedure. Dr. Red will plan to access antegrade at the artery and include evaluation of the cephalic arch. Coding Level of Care Code Off vis,est,level 3 Diagnoses Problem with dialysis access T82.898A Encounter type: initial encounter 05/26/21 2081<Electronically signed by Ivett LOZADA PA-C>Date Ivett LOZADA I have re-examined the patient. There are no clinical changes since date of exam.
[2021-06-12 11:20] LABS: Mean Corp Hgb Conc 33.3 g/dL (32-36); Mean Corpuscular Hgb 30.4 pg (27.0-32.0); Mean Corpuscular Volume 91.2 fL (80-94); Mean Platelet Vol. 10.4 fl (6.2-12.0); Platelet Count 185 K/mm3 (150-450); RBC Distribution Width CV 14.5 % (11.6-14.6); RBC Distribution Width SD 48.3 fl (35.1-43.9); Red Blood Count 3.62 M/mm3 (4.6-6.2); White Blood Count 9.5 K/mm3 (4.4-11.0)
[2021-06-12 11:32] LABS: Anion Gap 4 (5-15); BUN 16 mg/dL (7-18); BUN/Creat Ratio 5.2 RATIO (10-20); Calcium,Total 8.9 mg/dL (8.5-10.1); Chloride 99 mmol/L (98-107); Creatinine, Serum 3.06 mg/dL (0.70-1.30); EST Glomerular Filtration Rate 22 mL/min (>60); Est Glom Filt Rate - Afr Amer 27 mL/min (>60); Glucose 161 mg/dL (74-106); Potassium 4.1 mmol/L (3.5-5.1); Sodium Level 137 mmol/L (136-145)
--- NOTE | 2021-06-12 13:12 | PCM.OPRPT ---
Problems Associated Problem List Diagnoses (1) Problem with dialysis access: Report of Operation Date of Procedure: 06/12/21 Pre-Operative Diagnosis: Diminished flow left upper extremity cephalic to brachial artery arteriovenous hemodialysis fistula Post-Operative Diagnosis: Same plus left cephalic arch venous stenosis x2 Surgery/Procedure Performed:: Left upper extremity fistulogram with 8 x 2 conquest angioplasty Description of Surgical Findings:: Timeout and informed consent was obtained. The patient was taken to the procedure room and placed supine on the table. The left upper extremity was sterilely prepped and draped. Ultrasound was inspected of the cephalic vein to brachial artery AV fistula anastomosis and was widely patent. Under ultrasound guidance 2% lidocaine was instilled as a local anesthetic. A total of 1 cc was used. Then under ultrasound guidance a micropuncture needle inserted antegrade with flow. Micropuncture wire inserted and a 6 [place] short sheath was inserted. Using Isovue contrast a fistulogram was obtained of the left upper arm and outflow area. This demonstrated in the mid upper arm fistula what appeared to be likely just a short venous valve. Within the cephalic arch there appeared to be 2 venous valves but they appear to be hypertrophic and causing obstruction. I was able to get an 035 angled Glidewire passed the cephalic arch area. Placed an 8 x 2 conquest balloon and balloon angioplasty of these 2 areas of supposed and hypertrophic valves was performed. At the completion there was significant improvement in the appearance of the flow and importantly the fistula itself had return of a very nice palpable thrill. It had been much more dulled and pulsatile prior to this. In the mid upper arm at the site of what was also felt to be a valve inflated the balloon but the vein itself is larger than the balloon is was not completely occlusive. I tried to use the balloon in this position to get a retrograde view of the proximal fistula anastomotic area and somewhat of review was obtained but due to leakage around the balloon I could not get a perfect picture. As noted on ultrasound this was widely open. The balloon and wire and sheath were removed. A U suture of 4-0 nylon was placed hemostasis was intact there is no apparent complication and he tolerated it well. Images demonstrate a left upper arm cephalic vein to brachial artery arteriovenous hemodialysis fistula with a widely patent anastomosis and proximal fistula. In the mid upper arm there appeared like there was a venous valve but upon further inspection I did not feel that this was flow obstructing. Within the cephalic arch there appeared to be 2 hypertrophic valves and subsequent to 8 x 2 conquest angioplasty this area was markedly improved and clinically the fistula was markedly improved. The images demonstrate otherwise good central venous outflow Scott Red M.D., F.A.C.S. Surgeon: Scott Red
== END 2021-06-12 23:59 | disposition home or self-care (01) ==
LOC: CLSP 11:08
PROVIDERS: PCP Nurse Practitioner Family; Referring Provider Surgery; Visit Provider Surgery
DX: T82.858A Stenosis of other vascular prosthetic devices, implants and grafts, initial encounter (principal); K50.90 Crohn's disease, unspecified, without complications; E11.22 Type 2 diabetes mellitus with diabetic chronic kidney disease; I12.0 Hypertensive chronic kidney disease with stage 5 chronic kidney disease or end stage renal disease; N18.6 End stage renal disease; I48.91 Unspecified atrial fibrillation; Z79.4 Long term (current) use of insulin; I25.10 Atherosclerotic heart disease of native coronary artery without angina pectoris; Z87.891 Personal history of nicotine dependence; Z79.899 Other long term (current) drug therapy; Z79.82 Long term (current) use of aspirin
CPT/HCPCS: 36415; 36902; 76937; 80048; 85027; 99152; 99153; Q9967; C1725; C1769

== ENCOUNTER 2021-08-14 15:19 | Outpatient (CLI) | payer MEDICARE, MEDICAID, SELFPAY ==
--- NOTE | 2021-08-14 10:00 | NASAL_PTH ---
PATIENT: ISABELLA ANDERSON Jr. LOC: [facility] U#:[id number] AGE/SX: 56/M ROOM: RE08/14/[address]: Dr. Yehuda Lott MD : 1965 BED: DIS: 08/14/2021 SPEC #: [id number] RECD: 08/14/21 15:05 STATUS: DORINDA VLADISLAV #: [id number] RINKU: 08/14/21 10:[address]: Yehuda Lott DEPT: SURGICAL PATHOLOGY RECD BY: Raghavendra Tan ENTERED: 08/17/21 08:29 SP TYPE: NASAL SPEC OTHR DR: LEONOR Mike Tissues: NASAL POLYP Procedures: Surgery Specimen Level IV HEADER OPERATION: Not noted PRE-OP DIAGNOSIS: Left nasal mass TISSUE SUBMITTED: Left nasal mass MICROSCOPIC DIAGNOSIS Left nasal mass, biopsy: Consistent with polypoid pyogenic granuloma. AM:hemant 08/18/2021 MICROSCOPIC DESCRIPTION Slides are reviewed. GROSS DESCRIPTION Received in fixative is one container labeled with the patient's name and designated left nasal mass. The specimen consists of a piece of negrete-pink soft tissue measuring 0.5 x 0.4 x 0.2 cm. The specimen is inked and submitted entirely in one cassette. / SJ:rg 08/17/2021 TC:2 CPT: 49910
== END 2021-08-14 23:59 | disposition home or self-care (01) ==
LOC: LABSPEC 15:22
PROVIDERS: PCP Nurse Practitioner Family; Visit Provider Otolaryngology
DX: J34.9 Unspecified disorder of nose and nasal sinuses (principal)
CPT/HCPCS: 88304; 88305

== ENCOUNTER → 2021-12-11 | Outpatient (CLI) | payer MEDICARE, MEDICAID, SELFPAY ==
--- NOTE | 2021-12-11 13:39 | CT_ITS ---
STUDY: CT CHEST WITHOUT CONTRAST REASON FOR EXAM: Male, 56 years old. Follow nodule RLL 9.7X12 mm RADIATION DOSAGE (If Supplied By Facility): CTDIvol = ( 18.24 ) mGy, DLP = ( 660.66 ) mGycm TECHNIQUE: Transaxial imaging was performed without the administration of intravenous contrast material. Multiplanar coronal and sagittal images were reformatted. Individualized dose optimization techniques were used for this CT. COMPARISON: Comparison is made with prior study dated 04/27/2021. FINDINGS: Stable focal calcification in the inferior pole of the left lobe of the thyroid. Stable small benign-appearing bilateral axillary lymph nodes. CHEST There is a 9 mm pleural-based nodule in the posterior medial segment of the right lower lobe. This is unchanged. Small bilateral pleural effusions There are calcifications of the coronary arteries. Small pericardial effusion. There are multiple small lymph nodes within the mediastinum, which are normal in size and morphology most compatible with reactive lymph hyperplasia. Normal hilar regions. Normal unenhanced pulmonary arteries. There is atherosclerotic calcification of the aortic arch with tortuosity and elongation of the aortic arch and descending thoracic aorta. There are multi-level degenerative changes of the thoracic spine. Sclerosis of the T8 or T9 vertebra in keeping with metastatic disease. Small gallstones. CT/Chest without Contrast IMPRESSION: Stable bilateral pleural effusions right greater than left with bibasilar atelectasis. Stable 9 mm nodule in the posterior medial segment of the right lower lobe Electronically Signed: Kwabena Gould MD at 14:23 EDT ,
== END | disposition home or self-care (01) ==
LOC: CT 13:34
PROVIDERS: PCP Nurse Practitioner Family; Referring Provider Nurse Practitioner Acute Care; Visit Provider Nurse Practitioner Acute Care
DX: R91.1 Solitary pulmonary nodule (principal)
CPT/HCPCS: 71250

== ENCOUNTER 2022-04-30 06:41 | Emergency (ER) | payer MEDICARE, MEDICAID, SELFPAY ==
[2022-04-30 06:42] VITALS: BP 222/103; PULSE 81; RESP 23; TEMP 36.8; O2SAT 99; BMI 30.5
[2022-04-30 07:10] VITALS: BP 207/95; PULSE 78; RESP 20; O2SAT 99
--- NOTE | 2022-04-30 07:15 | RAD_ITS ---
STUDY: X-RAY CHEST REASON FOR EXAM: Male, 57 years old. Hypertension . Some onset of back pain. TECHNIQUE: Single AP portable view of the chest. COMPARISON: Comparison is made with prior study 12/29/2020. FINDINGS: EKG electrodes are seen. Mild right basilar infiltrate. Blunting of the right costal phrenic angle. Normal size heart. Normal mediastinum and nelda. Normal visualized pulmonary arteries. Normal visualized aortic arch and descending thoracic aorta. There are diffuse degenerative changes of the visualized thoracic spine. Normal visualized ribs, clavicles, and shoulders. There is no demonstrated abnormality of the visualized soft tissue structures of the upper abdomen. RAD/Chest 1 View (Portable) IMPRESSION: Right basilar infiltrate with blunting of the right costophrenic angle. Electronically Signed: Kwabena Gould MD at 8:21 EST ,
--- NOTE | 2022-04-30 07:15 | CT_ITS ---
STUDY: CT BRAIN WITHOUT CONTRAST REASON FOR EXAM: Male, 57 years old. Altered mental status. Atherosclerotic calcification of the cavernous portions of the internal carotid arteries as well as the vertebral arteries. RADIATION DOSAGE (If Supplied By Facility): CTDIvol = ( 47.06 ) mGy, DLP = ( 907.97 ) mGycm TECHNIQUE: Transaxial CT imaging of the brain was performed without administration of intravenous contrast material. Individualized dose optimization techniques were used for this CT. COMPARISON: Comparison is made with prior examination dated 12/30/2020. FINDINGS: Normal soft tissue structures. Normal calvarium. There is mild cerebral atrophy with widening of the extra-axial spaces and ventricular dilatation. Normal white matter tracts of the cerebral hemispheres. Normal basal ganglia and thalami. Normal brainstem. Normal cerebellum. There is no intracranial hemorrhage. There are no findings of an acute ischemic infarction. Normal visualized paranasal sinuses. CT/Brain/Head without Contrast IMPRESSION: Chronic involutional changes of the brain. Electronically Signed: Kwabena Gould MD at 8:31 EST ,
--- NOTE | 2022-04-30 07:16 | CT_ITS ---
STUDY: CT ABDOMEN AND PELVIS WITHOUT CONTRAST REASON FOR EXAM: Male, 57 years old. Abdominal back pain. DIALYSIS RADIATION DOSAGE (If Supplied By Facility): CTDIvol = ( 14.40 ) mGy, DLP = ( 695.00 ) mGycm TECHNIQUE: Transaxial images were obtained from the dome of the diaphragm to the symphysis pubis without oral contrast, and without intravenous contrast. Sagittal and coronal images were reconstructed. Individualized dose optimization techniques were used for this CT. COMPARISON: None. FINDINGS: Bilateral pleural effusions right greater than left with bibasilar atelectasis slightly more prominent on the right side. Coronary artery calcification. Minimal pericardial thickening. Normal liver. There are multiple small gallstones. Normal spleen. There is diffuse atrophy of the pancreas. Normal bilateral adrenal glands. Normal right kidney. Normal left kidney. Normal visualized stomach. Normal small intestine. There are multiple colonic diverticula consistent with diverticulosis. There are surgical clips in the region of the appendix consistent with a prior appendectomy. There is diffuse atherosclerotic calcification of the abdominal aorta and its major visceral branches, without a demonstrated aneurysm. Normal inferior vena cava. Normal retroperitoneum. Normal urinary bladder. Penile calcifications. Normal abdominal wall. There are diffuse degenerative changes of the visualized lumbar spine. CT/Abdomen/Pelvis without Cont IMPRESSION: Bilateral pleural effusions right greater than left with bibasilar atelectasis right greater than left. Multiple small gallstones. Pancreatic atrophy. Dense calcification of the abdominal aorta and major visceral branches. Electronically Signed: Kwabena Gould MD at 8:30 EST ,
--- NOTE | 2022-04-30 07:17 | EX.ED.DYSGE1 ---
HPI History of Present Illness Chief Complaint: Back Informant: patient and EMS Narrative Narrative: 57-year-old male scented via EMS from dialysis center with back pain. Patient is either a very poor historian has altered mental status. At one point he states that he woke up with severe pain but went to bed feeling fine and the next moment he states that he went to bed with pain. He cannot tell me what makes it better or worse. He denies any trauma. Despite having severe pain upon waking he took nothing was able to get himself to dialysis but now is seemingly unable to move from the bed. When the patient informs me I am not listening to him I informed him he has my undivided attention for 5 minutes. As I sat there for there is 5 minutes he only spoke for the initial 30 seconds and he put his hands behind his head close his eyes and refused to speak. He did not undergo dialysis. Prehospital EKG shows a sinus rhythm with a ventricular rate of 82 bpm. 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 Problem with dialysis access Home Medications esomeprazole magnesium 20 mg capsule,delayed release 20 mg PO PRN PRN GERD 05/06/19 [History Last Taken 06/12/21] amlodipine 10 mg tablet 10 mg PO DAILY #30 tabs 05/11/19 [Rx Last Taken 06/12/21] levothyroxine 25 mcg tablet 50 mcg PO DAILY Thyroid 07/13/19 [History Last Taken 06/12/21] fluticasone propionate 50 mcg/actuation nasal spray,suspension 1 spray NASAL DAILY allergies 03/05/20 [History Last Taken Unknown] lactulose 10 gram/15 mL oral solution 10 g PO PRN PRN Constipation 03/05/20 [History Last Taken Unknown] acetaminophen 500 mg tablet 500 mg PO Q6H PRN PRN Pain 1-10 Or Fever 08/26/20 [History Last Taken 08/26/20] insulin NPH isoph U-100 human 100 unit/mL subcutaneous suspension See Protocol SQ PRN PRN diabetes 08/26/20 [History Last Taken Unknown] aspirin 81 mg chewable tablet 81 mg PO DAILY@0800 ##90 08/28/20 [Rx Last Taken 06/12/21] atorvastatin 40 mg tablet 40 mg PO QHS #30 tabs 08/29/20 [Rx Last Taken Unknown] metoprolol tartrate 25 mg tablet 25 mg PO DAILY 03/13/21 [History Last Taken 06/12/21] sitagliptin phosphate 25 mg tablet 25 mg PO DAILY 03/13/21 [History Last Taken 06/12/21] ipratropium bromide 42 mcg (0.06 %) nasal spray 2 spray intranasal TID #15 mL 06/11/21 [Rx Last Taken Unknown] cyclobenzaprine 10 mg tablet 10 mg PO TID PRN Muscle Spasm #15 TABLETS 04/30/22 [Rx Last Taken Unknown] tramadol 50 mg tablet 50 mg PO Q4H PRN PRN Pain 3 days #20 tabs 04/30/22 [Rx Last Taken Unknown] Allergy/AdvReac Type Severity Reaction Status Date / Time No Known Allergies Allergy Verified 04/30/22 06:45 Family History Father Diabetes Heart disease Hypertension Surgical History History of left heart catheterization (LHC) (~08/27/20) History of right hemicolectomy History of tonsillectomy Social History Smoking Status: Former smoker Electronic Cigarette Use: not used how long ago did patient quit smoking: Smoked for a couple of months when he was 16 second hand exposure: No alcohol intake: never substance use type: does not use ROS ROS ED Review of Systems ROS Unobtainable: due to mental status Musculoskeletal Musculoskeletal: Reports back pain EXAM Physical Exam Const Vital Signs: 04/30/22 06:42 04/30/22 07:10 Temperature 98.2 F Temperature Source Temporal Pulse Rate 81 78 Respiratory Rate 23 H 20 H Blood Pressure 222/103 H 207/95 H Blood Pressure Mean 142 132 Pulse Ox 99 99 Oxygen Delivery Method Room Air Positive well nourished and well developed General Appearance ED: well developed HEENT Reports normocephalic, head/scalp atraumatic and moist mucous membranes Eyes PERRL and EOMs intact bilaterally Neck no lymphadenopathy, supple and no JVD Resp normal respiratory effort and clear to auscultation bilaterally Cardio regular rate, regular rhythm and no murmurs GI normal to inspection, nondistended, normoactive bowel sounds and non-tender Palpation: soft Back/Spine no CVA tenderness Back/Spine Narrative: Painful range of motion. Tender to palpation over the lumbar paraspinal musculature Extremity Extremity Narrative: Fistula left arm General Extremety ED: Negative for edema General Extremity: Negative for edema Neuro oriented x3 and CN's II-XII intact bilaterally Neuro Narrative: Alert and oriented x3 however he seems to have some perseveration repeatedly stating only that his back hurts Sensorium / Orientation: alert Motor Exam: strength 5/5 throughout Psych mental status grossly normal Mood & Affect: Negative for depressed or tearful Skin no rashes or lesions noted and no wounds MDM MDM MDM Narrative Medical decision making narrative: CT of the head was negative for acute. CT abdomen pelvis was negative for acute. Noted bilateral effusions. White count is 8.6. Creatinine 9.32 but this is his dialysis day. Troponin is 48. Due to the apparent altered mental status I will administer Tylenol. Upon receipt of the Tylenol now he can describe that his pain is in the low back and that it feels like a muscle spasm and it was present last night when he went to bed. He states that it was worse today. He notes no fevers. He states it does not radiate down his legs. Patient was administered 15 mg of Toradol as well as a Flexeril. I will write for tramadol and Flexeril. Patient to follow-up Lab Data Attestation: I reviewed the patient's lab results. Labs: Laboratory Results - last 24 hr 04/30/22 04/30/22 07:44 07:44 WBC 8.6 RBC 3.92 L Hgb 11.6 L Hct 35.9 L MCV 91.6 MCH 29.6 MCHC 32.3 RDW Std Deviation 49.2 H RDW Coeff of [place] 14.7 H Plt Count 237 MPV 9.9 Immature Gran % (Auto) 0.300 Neut % (Auto) 76.4 H Lymph % (Auto) 7.9 L [place] % (Auto) 9.9 Eos % (Auto) 4.5 Baso % (Auto) 1.0 Absolute Neuts (auto) 6.6 Absolute Lymphs (auto) 0.68 L Nucleated RBC % 0 Sodium 137 Potassium 4.7 Chloride 99 Carbon Dioxide 25.0 Anion Gap 13 BUN 58 H Creatinine 9.32 H* Estim Creat Clear Calc 9.09 Est GFR (MDRD) Af Amer 8 L Est GFR (MDRD) Non-Af 6 L BUN/Creatinine Ratio 6.2 L Glucose 141 H Calcium 9.5 Total Bilirubin 1.20 H AST 21 ALT 9 L Alkaline Phosphatase 132 H Troponin I High Sens 48 Total Protein 7.7 Albumin 3.6 Globulin 4.1 Albumin/Globulin Ratio 0.9 Radiography Diagnostic Testing: Clinical Impression(s) from Imaging Studies Brain CT 04/30/22 07:15 IMPRESSION: Chronic involutional changes of the brain. Electronically Signed: Kwabena Gould MD at 8:31 EST , Chest X-Ray 04/30/22 07:15 IMPRESSION: Right basilar infiltrate with blunting of the right costophrenic angle. Electronically Signed: Kwabena Gould MD at 8:21 EST , Abdomen/Pelvis CT 04/30/22 07:16 IMPRESSION: Bilateral pleural effusions right greater than left with bibasilar atelectasis right greater than left. Multiple small gallstones. Pancreatic atrophy. Dense calcification of the abdominal aorta and major visceral branches. Electronically Signed: Kwabean Gould MD at 8:30 EST , Discharge Plan Triage Chief Complaint: Back ED Provider: Earnest Delcid Dx/Rx/DC Orders Clinical Impression: Chronic renal failure, stage 5, Acute lumbar back pain, Lumbar paraspinal muscle spasm Instructions: ED Back Spasm, No Trauma Prescriptions: New cyclobenzaprine [cyclobenzaprine] 10 mg tablet 10 mg PO TID PRN (Reason: Muscle Spasm) Qty: 15 0RF tramadol 50 mg tablet 50 mg PO Q4H PRN PRN (Reason: Pain) 3 Days Qty: 20 0RF No Action metoprolol tartrate 25 mg tablet 25 mg PO DAILY Januvia 25 mg tablet 25 mg PO DAILY Label Comments: TAKE 1 TABLET DAILY ipratropium bromide 42 mcg (0.06 %) spray,non-aerosol 2 spray intranasal TID Qty: 15 6RF Rx Instructions: administer into each nostril esomeprazole magnesium 20 MG capsule,delayed release(DR/EC) 20 mg PO PRN PRN (Reason: GERD) amlodipine 10 MG tablet 10 mg PO DAILY Qty: 30 0RF levothyroxine 25 mcg tablet 50 mcg PO DAILY fluticasone propionate 1 SPRAY spray,suspension 1 spray NASAL DAILY lactulose 10 GM/15 ML solution 10 g PO PRN PRN (Reason: Constipation) Label Comments: Pt. reports he hasn't needed for 2 to 3 months. acetaminophen 500 MG tablet 500 mg PO Q6H PRN PRN (Reason: Pain 1-10 Or Fever) insulin NPH isoph U-100 human 100 UNIT/ML suspension See Protocol SQ PRN PRN (Reason: diabetes) Protocol: 6. Sliding Scale Insulin Custom Condition: mg/dl range Dose/Route: Number of Units Protocol Text: Custom Sliding Scale Label Comments: inject TEN units SUBCUTANEOUSLY TWICE DAILY FOR 30 DAYS aspirin 81 MG tablet,chewable 81 mg PO DAILY@0800 Qty: 90 0RF atorvastatin 40 MG tablet 40 mg PO QHS Qty: 30 1RF Primary Care Provider: Care Physician,No Primary Referrals: Magre King BUSINESS CONTINUITY SPECIALIST, BUSINESS CONTINUITY SPECIALIST-C [Non-Staff] -
[2022-04-30] MEDS: Acetaminophen 500 MG Tablet 1000 MG PO (07:48)
[2022-04-30] MEDS: hydrALAZINE 20 MG/ML Vial 10 MG IV (07:50)
[2022-04-30 07:55] LABS: Absolute Lymphocyte Count 0.68 X10^3/uL (0.83-4.51); Absolute Neutrophil Count 6.6 X10^3/uL (2.0-7.7); Basophil# 0.09 X10^3/uL; Eosinophil# 0.39 X10^3/uL; Eosinophils% 4.5 % (0-5); Hematocrit 35.9 % (40-54); Hemoglobin 11.6 g/dL (13.0-16.5); Lymphocyte # 0.68 X10^3/ul (0.83-4.51); Lymphocyte % 7.9 % (19-41); Mean Corp Hgb Conc 32.3 g/dL (32-36); Mean Corpuscular Hgb 29.6 pg (27.0-32.0); Mean Corpuscular Volume 91.6 fL (80-94); Mean Platelet Vol. 9.9 fl (6.2-12.0); Monocyte# 0.85 X10^3/uL; Monocyte% 9.9 % (0-10); NRBC Flagged by Analyzer 0 % (0-5); Neutrophil # 6.56 X10^3/uL (2.7-7.7); Neutrophil % 76.4 % (47-70); Platelet Count 237 K/mm3 (150-450); RBC Distribution Width CV 14.7 % (11.6-14.6); RBC Distribution Width SD 49.2 fl (35.1-43.9); Red Blood Count 3.92 M/mm3 (4.6-6.2); White Blood Count 8.6 K/mm3 (4.4-11.0)
[2022-04-30 08:13] LABS: ALB/GLOB Ratio 0.9 RATIO (0.9-2.4); AST(SGOT) 21 U/L (15-37); Alanine Aminotransfer ALT/SGPT 9 U/L (16-61); Albumin, Serum 3.6 g/dL (3.2-5.0); Alkaline Phosphatase 132 U/L (45-117); Anion Gap 13 (5-15); BUN 58 mg/dL (7-18); BUN/Creat Ratio 6.2 RATIO (10-20); Calcium,Total 9.5 mg/dL (8.5-10.1); Chloride 99 mmol/L (98-107); Creatinine, Serum 9.32 mg/dL (0.70-1.30); EST Glomerular Filtration Rate 6 mL/min (>60); Est Glom Filt Rate - Afr Amer 8 mL/min (>60); Estimated Creatinine Clearance 9.09 ml/min; Globulin 4.1 g/dL (2.2-4.2); Glucose 141 mg/dL (74-106); Potassium 4.7 mmol/L (3.5-5.1); Protein, Total 7.7 g/dL (6.4-8.2); Sodium Level 137 mmol/L (136-145); Troponin-I HS 48 pg/mL (3.0-78.0)
--- NOTE | 2022-04-30 08:14 | ED.RN ---
creat 9.32. dr mario
[2022-04-30] MEDS: Ketorolac 15 MG/ML Vial IV (09:34)
[2022-04-30] MEDS: cycloBENZAPRine HCl 10 MG Tablet PO (09:34)
[2022-04-30 09:38] VITALS: BP 190/84; RESP 20; O2SAT 97
--- NOTE | 2022-04-30 11:10 | ED.RN ---
PT REFUSING TO LEAVE DEPARTMENT. DR VALENTE IN TO TALK WITH PT AGAIN
== END 2022-04-30 11:19 | disposition home or self-care (01) ==
PROVIDERS: Emergency Provider Emergency Medicine; Visit Provider Emergency Medicine
DX: N18.6 End stage renal disease (principal); Z99.2 Dependence on renal dialysis; E11.22 Type 2 diabetes mellitus with diabetic chronic kidney disease; I12.0 Hypertensive chronic kidney disease with stage 5 chronic kidney disease or end stage renal disease; M54.50 Low back pain, unspecified; M62.830 Muscle spasm of back; Z87.891 Personal history of nicotine dependence; I25.10 Atherosclerotic heart disease of native coronary artery without angina pectoris
CPT/HCPCS: 70450; 71045; 74176; 80053; 84484; 85025; 96374; 96375; 99285; J7030; A4216

== ENCOUNTER 2022-07-16 20:35 | Emergency (ER) | payer MEDICARE, MEDICAID, SELFPAY ==
[2022-07-16 20:36] VITALS: PULSE 74; RESP 15; TEMP 36.8; O2SAT 99; BMI 28.4
[2022-07-16 20:41] VITALS: RESP 17; O2SAT 98
--- NOTE | 2022-07-16 22:07 | RAD_ITS ---
STUDY: X-RAY - RIGHT HUMERUS REASON FOR EXAM: Male, 57 years old. Injury/Pain TECHNIQUE: 3 view(s) of the humerus. COMPARISON: None. FINDINGS: Limited study due to less than optimal positioning Acute impacted humeral head and neck fracture with overlapping of fracture fragments. There is markedly narrowing of the subacromial space and acromioclavicular joints. There is no demonstrated fracture or osseous destructive process. There is no demonstrated soft tissue abnormality. RAD/Humerus min 2 Views IMPRESSION: Acute impacted displaced humeral head and neck fracture CT recommended for further evaluation. Electronically Signed: Garry Lemus MD at 22:26 EST ,
--- NOTE | 2022-07-16 23:04 | EDS_ITS ---
HPI History of Present Illness HPI Narrative: Patient presents with injury to his right arm that occurred today. Patient states he fell backwards and landed on his right side. Patient states he fell because his right hip gave out. Patient denies any head injury or loss of consciousness. Patient was seen at [facility] where he had x-rays done. Patient was told he had a fracture of his humerus. Patient was placed in a sling and swath. Patient presents here for a second opinion to see if this fracture needs to have a cast placed. Chief Complaint: Upper Extremity Injury Informant: patient Occured/Mechanism Mechanism/Context: Yes fall Onset/Context/Timing Onset: Today Context: Sudden Onset Timing: Continuous Quality of Pain: Sharp Location: Right shoulder and upper humerus Worsened by: Movement Relieved by: Rest Associated Symptoms Associated Symptoms: Positive for Parasthesia PFSH [facility] Medical History Arterial steal syndrome Atherosclerotic heart disease of [place] coronary artery without angina pectoris Atrial fibrillation Chronic renal failure, stage 5 Crohn's disease Diabetes ESRD (end stage renal disease) on dialysis ESRD on hemodialysis Frequent falls Hyperphosphatemia Hypertension 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 Problem with dialysis access Home Medications esomeprazole magnesium 20 mg capsule,delayed release 20 mg PO PRN PRN GERD 05/06/19 [History Last Taken 06/12/21] amlodipine 10 mg tablet 10 mg PO DAILY #30 tabs 05/11/19 [Rx Last Taken 06/12/21] levothyroxine 25 mcg tablet 50 mcg PO DAILY Thyroid 07/13/19 [History Last Taken 06/12/21] fluticasone propionate 50 mcg/actuation nasal spray,suspension 1 spray NASAL DAILY allergies 03/05/20 [History Last Taken Unknown] lactulose 10 gram/15 mL oral solution 10 g PO PRN PRN Constipation 03/05/20 [History Last Taken Unknown] acetaminophen 500 mg tablet 500 mg PO Q6H PRN PRN Pain 1-10 Or Fever 08/26/20 [History Last Taken 08/26/20] insulin NPH isoph U-100 human 100 unit/mL subcutaneous suspension See Protocol SQ PRN PRN diabetes 08/26/20 [History Last Taken Unknown] aspirin 81 mg chewable tablet 81 mg PO DAILY@0800 ##90 08/28/20 [Rx Last Taken 06/12/21] atorvastatin 40 mg tablet 40 mg PO QHS #30 tabs 08/29/20 [Rx Last Taken Unknown] metoprolol tartrate 25 mg tablet 25 mg PO DAILY 03/13/21 [History Last Taken 06/12/21] sitagliptin phosphate 25 mg tablet 25 mg PO DAILY 03/13/21 [History Last Taken 06/12/21] ipratropium bromide 42 mcg (0.06 %) nasal spray 2 spray intranasal TID #15 mL 06/11/21 [Rx Last Taken Unknown] cyclobenzaprine 10 mg tablet 10 mg PO TID PRN Muscle Spasm #15 TABLETS 04/30/22 [Rx Last Taken Unknown] tramadol 50 mg tablet 50 mg PO Q4H PRN PRN Pain 3 days #20 tabs 04/30/22 [Rx Last Taken Unknown] Allergy/AdvReac Type Severity Reaction Status Date / Time No Known Allergies Allergy Verified 07/16/22 20:42 Family History Father Diabetes Heart disease Hypertension Surgical History History of left heart catheterization (LHC) (~08/27/20) History of right hemicolectomy History of tonsillectomy Social History Smoking Status: Former smoker Electronic Cigarette Use: not used how long ago did patient quit smoking: Smoked for a couple of months when he was 16 second hand exposure: No alcohol intake: never substance use type: does not use ROS ROS ED Constitutional Constitutional ED: Denies chills or fever(s) Eyes Eyes: Denies blurry vision or change in vision ENT ENT ED: Denies rhinorrhea or sore throat Cardiovascular Cardiovascular: Denies chest pain or palpitations Respiratory/Chest Respiratory/Chest: Denies cough or dyspnea Gastrointestinal Gastrointestinal: Denies nausea or vomiting Genitourinary Genitourinary ED: Denies dysuria or hematuria Musculoskeletal Musculoskeletal: Reports neck pain; Denies back pain Integumentary Denies abscess or rash Neurologic Neurologic: Denies headache(s) or weakness Allergic/Immunologic Allergic/Immunologic ED: Denies mouth swelling or urticaria EXAM Physical Exam Const Vital Signs: 07/16/22 20:36 07/16/22 20:41 Temperature 98.2 F Temperature Source Temporal Pulse Rate 74 Respiratory Rate 15 17 Pulse Ox 99 98 Oxygen Delivery Method Room Air Positive well nourished and well developed General Appearance ED: well developed and NAD HEENT Reports moist mucous membranes Neck supple Resp normal respiratory effort and clear to auscultation bilaterally Cardio regular rate and regular rhythm Extremity Extremity Narrative: There is tenderness over the right shoulder and proximal humerus. There is no obvious deformity noted. Range of motion was limited in all motions of the right shoulder secondary to pain. Strength is 5/5 in the radial, median, and ulnar areas. Sensation was intact to light touch in the radial, median, ulnar, and axillary areas. Radial pulses are equal bilaterally. Neuro oriented x3, CN's II-XII intact bilaterally, moves all extremities, no focal motor deficits and no sensory deficits noted Sensorium / Orientation: alert Motor Exam: strength 5/5 throughout Psych mental status grossly normal MDM MDM MDM Narrative Medical decision making narrative: Differential diagnosis includes proximal humerus fracture and shoulder dislocation. X-rays of the right humerus will be obtained to assess for dislocation and proximal humerus fracture. Radiography Diagnostic Testing: Clinical Impression(s) from Imaging Studies Humerus X-Ray 07/16/22 22:07 IMPRESSION: Acute impacted displaced humeral head and neck fracture CT recommended for further evaluation. Electronically Signed: Garry Lemus MD at 22:26 EST Reading Location ID and State: [address] [place] [address] , Service support , X-rays of the right humerus were obtained. On my independent interpretation, there is a proximal humerus fracture at the surgical neck. There is some mild displacement of the distal fragment anteriorly. Radiologist also interpreted the x-ray and agrees. Treatment and Re-Evaluation Narrative: Patient was advised of his findings. Patient was advised that the fracture does not need a cast or splint at this time. Patient was instructed to maintain his sling and swath. Patient was instructed to maintain his pain medication as previously prescribed. Patient was instructed to follow-up with his primary care physician in 5 to 7 days. Patient was also instructed to follow-up with his orthopedic surgeon in 5 to 7 days. Patient understood and was agreeable with the plan. All questions were answered. Discharge Plan Triage Chief Complaint: Upper Extremity Injury ED Provider: Arias Austin Dx/Rx/DC Orders Clinical Impression: Closed fracture of proximal end of right humerus, Chronic kidney disease Instructions: ED Fracture, Shoulder Prescriptions: No Action metoprolol tartrate 25 mg tablet 25 mg PO DAILY Januvia 25 mg tablet 25 mg PO DAILY Label Comments: TAKE 1 TABLET DAILY ipratropium bromide 42 mcg (0.06 %) spray,non-aerosol 2 spray intranasal TID Qty: 15 6RF Rx Instructions: administer into each nostril esomeprazole magnesium 20 MG capsule,delayed release(DR/EC) 20 mg PO PRN PRN (Reason: GERD) amlodipine 10 MG tablet 10 mg PO DAILY Qty: 30 0RF levothyroxine 25 mcg tablet 50 mcg PO DAILY fluticasone propionate 1 SPRAY spray,suspension 1 spray NASAL DAILY lactulose 10 GM/15 ML solution 10 g PO PRN PRN (Reason: Constipation) Label Comments: Pt. reports he hasn't needed for 2 to 3 months. acetaminophen 500 MG tablet 500 mg PO Q6H PRN PRN (Reason: Pain 1-10 Or Fever) insulin NPH isoph U-100 human 100 UNIT/ML suspension See Protocol SQ PRN PRN (Reason: diabetes) Protocol: 6. Sliding Scale Insulin Custom Condition: mg/dl range Dose/Route: Number of Units Protocol Text: Custom Sliding Scale Label Comments: inject TEN units SUBCUTANEOUSLY TWICE DAILY FOR 30 DAYS aspirin 81 MG tablet,chewable 81 mg PO DAILY@0800 Qty: 90 0RF atorvastatin 40 MG tablet 40 mg PO QHS Qty: 30 1RF cyclobenzaprine [cyclobenzaprine] 10 mg tablet 10 mg PO TID PRN (Reason: Muscle Spasm) Qty: 15 0RF tramadol 50 mg tablet 50 mg PO Q4H PRN PRN (Reason: Pain) 3 Days Qty: 20 0RF Primary Care Provider: Care Physician,No Primary Referrals: Rodrigo Merida DO [Med Staff - Active Staff] - 5-7 Days Care Physician,No Primary [Primary Care Provider] - Disposition Disposition: Home, Self Care
== END 2022-07-16 23:27 | disposition home or self-care (01) ==
PROVIDERS: Emergency Provider Emergency Medicine; Visit Provider Emergency Medicine
DX: S42.201A Unspecified fracture of upper end of right humerus, initial encounter for closed fracture (principal); Z99.2 Dependence on renal dialysis; E11.22 Type 2 diabetes mellitus with diabetic chronic kidney disease; I12.0 Hypertensive chronic kidney disease with stage 5 chronic kidney disease or end stage renal disease; N18.5 Chronic kidney disease, stage 5; Z87.891 Personal history of nicotine dependence; I25.10 Atherosclerotic heart disease of native coronary artery without angina pectoris; W19.XXXA Unspecified fall, initial encounter
CPT/HCPCS: 73060; 99282

== ENCOUNTER → 2022-07-19 | Outpatient (CLI) | payer MEDICARE, MEDICAID, SELFPAY ==
--- NOTE | 2022-07-19 12:07 | CT_ITS ---
STUDY: CT RIGHT SHOULDER REASON FOR EXAM: Male, 57 years old. Pain, fracture RADIATION DOSAGE (If Supplied By Facility): CTDIvol = ( 34.16 ) mGy, DLP = ( 753.25 ) mGycm TECHNIQUE: The patient was scanned in a multi detector CT scanner. High resolution transaxial imaging was performed without the administration of intravenous contrast material. Sagittal and coronal images were reconstructed. Individualized dose optimization techniques were used for this CT. COMPARISON: Comparison is made with prior radiographs done earlier in the day. FINDINGS: Normal glenohumeral articulation. Normal glenoid rim, neck and visualized scapula. Comminuted fracture of the surgical neck of the humerus with impaction and involvement of the greater tuberosity of the proximal humerus.. Normal coracoid process. Normal visualized lateral clavicle. There is mild osteoarthritis with articular joint space narrowing. There is a Type II morphology (curved), with a neutral orientation. Soft tissue swelling. CT/Extremity Upper without Contra IMPRESSION: Comment a fracture of the surgical neck of the meniscus with extension to the greater tuberosity and impaction. Electronically Signed: Kwabena Gould MD at 12:29 EST ,
== END | disposition home or self-care (01) ==
PROVIDERS: PCP Registered Nurse; Referring Provider Orthopaedic Surgery; Visit Provider Orthopaedic Surgery
DX: S42.201A Unspecified fracture of upper end of right humerus, initial encounter for closed fracture (principal)
CPT/HCPCS: 73200

== ENCOUNTER 2022-07-21 12:11 | Emergency (ER) | payer MEDICARE, MEDICAID, SELFPAY ==
[2022-07-21 12:13] VITALS: BP 158/92; PULSE 61; RESP 14; TEMP 36.8; O2SAT 98; BMI 30.7
--- NOTE | 2022-07-21 13:04 | EKG12_ITS ---
Test Reason : WEAKNESS Blood Pressure : / mmHG Vent. Rate : 059 BPM Atrial Rate : 059 BPM P-R Int : 162 ms QRS Dur : 084 ms QT Int : 494 ms P-R-T Axes : 032 -32 -78 degrees QTc Int : 489 ms Sinus bradycardia Left axis deviation Nonspecific T wave abnormality Prolonged QT Abnormal ECG Confirmed by LEIF TREADWELL, JOSE DANIEL ([id number]), avid editor SUHA PAULSON ([id number]) on 07/26/2022 9:30:54 AM Referred By: Confirmed By:CLEMENCIA YADAV MD
--- NOTE | 2022-07-21 13:13 | EX.ED.DYSGE1 ---
HPI History of Present Illness Chief Complaint: Weakness Informant: patient Narrative Narrative: Patient states 5 days ago he had an accidental fall and broke his right shoulder. He has seen orthopedics for that. He is a dialysis patient, and he has not had dialysis since right before his fall, has missed 2 sessions since then. He states the problem is he has a lot of difficulty getting up onto his feet because of the pain in his shoulder. He states he was told it was shattered and very unstable, he is not scheduled to go see orthopedics in [employer] until after the weekend, today being Tuesday. He gets dialysis Tuesday, Tuesday, Tuesday. 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 Problem with dialysis access Home Medications esomeprazole magnesium 20 mg capsule,delayed release 20 mg PO PRN PRN GERD 05/06/19 [History Last Taken 06/12/21] amlodipine 10 mg tablet 10 mg PO DAILY #30 tabs 05/11/19 [Rx Last Taken 06/12/21] insulin NPH isoph U-100 human 100 unit/mL subcutaneous suspension See Protocol SQ PRN PRN diabetes 08/26/20 [History Last Taken Unknown] aspirin 81 mg chewable tablet 81 mg PO DAILY@0800 ##90 08/28/20 [Rx Last Taken 06/12/21] baclofen 5 mg tablet 5 mg PO QHS 07/19/22 [History Last Taken Unknown] bumetanide 2 mg tablet 2 mg PO 07/19/22 [History Last Taken Unknown] calcitriol 0.25 mcg capsule (Rocaltrol) 0.25 mcg PO DAILY 07/19/22 [History Last Taken Unknown] hydrocodone-acetaminophen 5-325mg 5mg-325mg 1 tab PO Q6H PRN 07/19/22 [History Last Taken Unknown] levothyroxine 25 mcg tablet 175 mcg PO DAILY Thyroid 07/19/22 [History Last Taken Unknown] lidocaine 5 % topical patch 1 patch transdermal 07/19/22 [History Last Taken Unknown] losartan 100 mg tablet 100 mg PO 07/19/22 [History Last Taken Unknown] omega-3 fatty acids 1,000 mg capsule 1,000 mg PO DAILY 07/19/22 [History Last Taken Unknown] oxycodone-acetaminophen 5 mg-325 mg tablet (Percocet) 1 - 2 tab PO Q4H PRN pain 5 days #40 tabs 07/19/22 [Rx Last Taken Unknown] sitagliptin phosphate 25 mg tablet (Januvia) 25 mg PO DAILY 07/19/22 [History Last Taken Unknown] Allergy/AdvReac Type Severity Reaction Status Date / Time No Known Allergies Allergy Verified 07/21/22 12:13 Family History Father Diabetes Heart disease Hypertension Surgical History History of left heart catheterization (LHC) (~08/27/20) History of right hemicolectomy History of tonsillectomy Social History Smoking Status: Former smoker Electronic Cigarette Use: not used how long ago did patient quit smoking: Smoked for a couple of months when he was 16 second hand exposure: No alcohol intake: never substance use type: does not use ROS ROS ED Constitutional Constitutional ED: Denies chills or fever(s) Eyes Eyes: Denies change in vision or diplopia ENT ENT ED: Denies rhinorrhea or sore throat Cardiovascular Cardiovascular: Denies chest pain or palpitations Respiratory/Chest Respiratory/Chest: Denies cough or dyspnea Gastrointestinal Gastrointestinal: Denies abdominal pain, diarrhea, nausea or vomiting Genitourinary Genitourinary ED: Reports oliguria; Denies dysuria or hematuria Musculoskeletal Musculoskeletal: Reports extremity pain; Denies back pain or neck pain Integumentary Denies abscess or rash Neurologic Neurologic: Denies headache(s), paresthesias or weakness Psychiatric Psychiatric: Denies anxiety or suicidal thoughts EXAM Physical Exam Const Vital Signs: 07/21/22 12:13 07/21/22 16:04 07/21/22 16:04 Temperature 98.2 F Temperature Source Temporal Pulse Rate 61 58 L Respiratory Rate 14 16 Respiratory Effort Normal Non-Labored Respiratory Pattern Normal Blood Pressure 158/92 H 175/82 H Blood Pressure Mean 114 113 Pulse Ox 98 98 Oxygen Delivery Method Room Air Room Air Positive well nourished and well developed General Appearance ED: well developed and NAD HEENT Reports moist mucous membranes normocephalic and atraumatic Eyes PERRL and EOMs intact bilaterally Neck full ROM and supple Chest Wall inspection of chest normal and palpation of chest normal Resp normal respiratory effort and clear to auscultation bilaterally Cardio regular rate, regular rhythm and no murmurs Cardio Narrative: Good thrill AV fistula left forearm GI non-tender and non-distended Auscultation: normoactive bowel sounds Palpation: soft Back/Spine no CVA tenderness General Back: other FROM Extremity normal to inspection Extremity Narrative: Limited range of motion right shoulder due to pain, in a sling, no deformities. Neurovascular intact distally right upper extremity. Lower extremities mildly edematous, chronic per patient, signs of chronic stasis dermatitis evident, no signs of acute cellulitis. General Extremety ED: Negative for edema or pulses abnormal General Extremity: Negative for edema or pulses abnormal Neuro oriented x3, CN's II-XII intact bilaterally and no sensory deficits noted Sensorium / Orientation: awake and alert Motor Exam: strength 5/5 throughout Skin no rashes or lesions noted and no wounds MDM MDM MDM Narrative Medical decision making narrative: My concern is that this gentleman is having trouble caring for himself at home. He is in agreement. He really wants to be at home, but he states that when his ride comes to get him for dialysis, he is not able to get out of the chair in order to get to the transportation. His potassium is just barely elevated at 5.2 and he has no EKG changes from this. He is not clinically fluid overloaded and in any change or but he does need to have dialysis. My concern is that he has an appointment to see an upper extremity specialist 2 days from now, he will not likely be getting surgery at that time, and he needs dialysis every other day and will need more help. Therefore I asked the hospitalist Dr. Mancini to admit him after discussing with Dr. Lim for dialysis, which he was in agreement with for the AM, however the hospitalist does not think admitting him here is appropriate because he will not qualify for placement in an ECF even for short-term rehab until he can get his shoulder taken care of, and we do not have an upper extremity ortho specialist for consultation. I discussed with Dr. Merida orthopedics, he states that this is too complicated of a proximal humerus fracture for him and that is why he referred the patient out. He was scheduled to see Dr. Marmolejo at [facility] who has not seen this patient yet. Discussed again w/ Dr. Lim, who recommends transfer to an [facility], where he is also on staff; the pt wants [facility], which actually would work out well since Dr. Marmolejo goes there as well. Discussed w/ Dr. Lerma there at [facility], who accepts the pt. Since they do not have any beds there at this time, as of 07/21/22 at 1730, pt is placed on ED observation for the purpose of awaiting a bed. I let nephrology know that if the pt does not get a bed by the AM tomorrow, he will likely be temporarily admitted here and could then get dialyzed here Lab Data Attestation: I reviewed the patient's lab results. Labs: Laboratory Results - last 24 hr 07/21/22 07/21/22 13:33 13:33 WBC 10.1 RBC 3.25 L Hgb 10.3 L Hct 30.0 L MCV 92.3 MCH 31.7 MCHC 34.3 RDW Std Deviation 46.9 H RDW Coeff of [place] 13.8 Plt Count 263 MPV 11.0 Immature Gran % (Auto) 0.800 Neut % (Auto) 82.9 H Lymph % (Auto) 3.6 L [place] % (Auto) 8.8 Eos % (Auto) 3.2 Baso % (Auto) 0.7 Absolute Neuts (auto) 8.4 H Absolute Lymphs (auto) 0.36 L Nucleated RBC % 0.2 Sodium 130 L Potassium 5.2 H Chloride 93 L Carbon Dioxide 24.0 BUN 80 H Creatinine 9.33 H* Estim Creat Clear Calc 9.08 Est GFR (MDRD) Af Amer 8 L Est GFR (MDRD) Non-Af 6 L BUN/Creatinine Ratio 8.6 L Glucose 213 H Calcium 8.9 Phosphorus 8.6 H Albumin 2.6 L Rhythm Strip Rhythm Strip: Sinus Rhythm Rate: 60 Ectopy: None EKG Initial EKG: Attestation: I personally reviewed and interpreted this EKG as follows: Interpretation: No Acute Injury Pattern and Sinus Bradycardia Comments: Near the QRS. No AVB. T waves relatively normal-appearing. No peaking. Discharge Plan Triage Chief Complaint: Weakness ED Provider: Carlos Kendall Dx/Rx/DC Orders Clinical Impression: Declining functional status, Closed fracture of proximal end of right humerus, Hyperkalemia, diminished renal excretion, ESRD on dialysis Prescriptions: No Action hydrocodone-acetaminophen 5-325 mg tablet 1 tab PO Q6H PRN bumetanide 2 mg tablet 2 mg PO Label Comments: TAKE 1 TABLET BY MOUTH THREE TIMES DAILY omega-3 fatty acids 1,000 mg capsule 1,000 mg PO DAILY losartan 100 mg tablet 100 mg PO Label Comments: TAKE 1 TABLET BY MOUTH EVERY DAY lidocaine 5 % adhesive patch,medicated 1 patch transdermal Label Comments: APPLY ONE PATCH DAILY calcitriol [Rocaltrol] 0.25 mcg capsule 0.25 mcg PO DAILY Januvia 25 mg tablet 25 mg PO DAILY baclofen 5 mg tablet 5 mg PO QHS oxycodone-acetaminophen [Percocet] 5-325 mg tablet 1 - 2 tab PO Q4H PRN (Reason: pain) 5 Days Qty: 40 0RF esomeprazole magnesium 20 MG capsule,delayed release(DR/EC) 20 mg PO PRN PRN (Reason: GERD) amlodipine 10 MG tablet 10 mg PO DAILY Qty: 30 0RF levothyroxine 25 mcg tablet 175 mcg PO DAILY insulin NPH isoph U-100 human 100 UNIT/ML suspension See Protocol SQ PRN PRN (Reason: diabetes) Protocol: 6. Sliding Scale Insulin Custom Condition: mg/dl range Dose/Route: Number of Units Protocol Text: Custom Sliding Scale Label Comments: inject TEN units SUBCUTANEOUSLY TWICE DAILY FOR 30 DAYS aspirin 81 MG tablet,chewable 81 mg PO DAILY@0800 Qty: 90 0RF Primary Care Provider: Hortensia Reno NP Referrals: Hortensia Reno NP, INSTALLATION COORDINATOR-C [Primary Care Provider] - Disposition Disposition: Acute Care Hospital Discharge Location: [facility]
[2022-07-21 14:04] LABS: Albumin, Serum 2.6 g/dL (3.2-5.0); BUN 80 mg/dL (7-18); BUN/Creat Ratio 8.6 RATIO (10-20); Calcium,Total 8.9 mg/dL (8.5-10.1); Chloride 93 mmol/L (98-107); Creatinine, Serum 9.33 mg/dL (0.70-1.30); EST Glomerular Filtration Rate 6 mL/min (>60); Est Glom Filt Rate - Afr Amer 8 mL/min (>60); Estimated Creatinine Clearance 9.08 ml/min; Glucose 213 mg/dL (74-106); Phosphorus 8.6 mg/dL (2.5-4.9); Potassium 5.2 mmol/L (3.5-5.1); Sodium Level 130 mmol/L (136-145)
[2022-07-21 16:04] VITALS: BP 175/82; PULSE 58; RESP 16; O2SAT 98
[2022-07-21 16:19] LABS: Absolute Lymphocyte Count 0.36 X10^3/uL (0.83-4.51); Absolute Neutrophil Count 8.4 X10^3/uL (2.0-7.7); Basophil# 0.07 X10^3/uL; Basophil% 0.7 % (0-1); Eosinophil# 0.32 X10^3/uL; Eosinophils% 3.2 % (0-5); Hemoglobin 10.3 g/dL (13.0-16.5); Lymphocyte # 0.36 X10^3/ul (0.83-4.51); Lymphocyte % 3.6 % (19-41); Mean Corp Hgb Conc 34.3 g/dL (32-36); Mean Corpuscular Hgb 31.7 pg (27.0-32.0); Mean Corpuscular Volume 92.3 fL (80-94); Monocyte# 0.89 X10^3/uL; Monocyte% 8.8 % (0-10); NRBC Flagged by Analyzer 0.2 % (0-5); Neutrophil # 8.41 X10^3/uL (2.7-7.7); Neutrophil % 82.9 % (47-70); POSITIVE DIFFERENTIAL YES; Platelet Count 263 K/mm3 (150-450); RBC Distribution Width CV 13.8 % (11.6-14.6); RBC Distribution Width SD 46.9 fl (35.1-43.9); Red Blood Count 3.25 M/mm3 (4.6-6.2); White Blood Count 10.1 K/mm3 (4.4-11.0)
[2022-07-21 16:24] LABS: Differential Indicated SCAN CRITERIA MET
--- NOTE | 2022-07-21 17:14 | NURSING ---
CALLED [facility] FOR TRANSFER. TALKED TO [facility]
--- NOTE | 2022-07-21 17:41 | NURSING ---
ACCEPTED AT [facility] BY DR GARCÍA. WAITING ON A BED
[2022-07-21] MEDS: oxyCODONE 5 MG Tablet PO (17:44)
[2022-07-21 17:55] LABS: Differential Comment SCANNED
[2022-07-21 18:00] VITALS: BP 155/77; PULSE 59; RESP 15; O2SAT 98
--- NOTE | 2022-07-21 18:35 | ED.RN ---
Pt accepted to [id number] [id number] [phone]
[2022-07-21 19:49] VITALS: BP 155/70; PULSE 60; RESP 18; TEMP 36.8; O2SAT 100
== END 2022-07-21 22:12 | disposition short-term general hospital (02) ==
PROVIDERS: Emergency Provider Emergency Medicine; PCP Registered Nurse; Visit Provider Emergency Medicine
DX: Z74.09 Other reduced mobility (principal); Z99.2 Dependence on renal dialysis; E11.22 Type 2 diabetes mellitus with diabetic chronic kidney disease; I12.0 Hypertensive chronic kidney disease with stage 5 chronic kidney disease or end stage renal disease; N18.6 End stage renal disease; E87.5 Hyperkalemia; Z87.891 Personal history of nicotine dependence; I25.10 Atherosclerotic heart disease of native coronary artery without angina pectoris; S42.201A Unspecified fracture of upper end of right humerus, initial encounter for closed fracture; W19.XXXA Unspecified fall, initial encounter
CPT/HCPCS: 80069; 85025; 87811; 93005; 99285

== ENCOUNTER 2022-08-05 12:40 | Inpatient (IN) | payer MEDICARE, MEDICAID, SELFPAY ==
[2022-08-05] VITALS (15 sets, daily range): BP systolic 117–134; BP diastolic 41–54; PULSE 51–69; RESP 14–18; TEMP 35.8–36.8; O2SAT 89–100; BMI 28.8; BMI 28.5
--- NOTE | 2022-08-05 13:16 | ED.VIS.LOWEX ---
HPI History of Present Illness Chief Complaint: Lower Extremity Injury Informant: patient Narrative Narrative: Patient has had wound and infection in his left foot for months progressively getting worse following with a bilingual inside sales representative in [place]. He now needs hospitalization for gangrenous infection, he chose to come here to [place] after being offered here or [place] since he needs to be admitted for continued worsening of his foot. He states he has been in a local retirement for the past week because of progressively worsening weakness all over, he also had a fall and broke his right shoulder which she has followed up with orthopedics for, Dr. Merida, and he is a dialysis patient which is the only reason he could not stay at the hospital in [place]. He denies any other systemic symptoms such as fevers or chills or trouble breathing. His last dialysis session was yesterday. He does not know who his electromechanical engineer is. 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 Problem with dialysis access Home Medications esomeprazole magnesium 20 mg capsule,delayed release 20 mg PO PRN PRN GERD 05/06/19 [History Last Taken 06/12/21] amlodipine 10 mg tablet 10 mg PO DAILY #30 tabs 05/11/19 [Rx Last Taken 06/12/21] insulin NPH isoph U-100 human 100 unit/mL subcutaneous suspension See Protocol SQ PRN PRN diabetes 08/26/20 [History Last Taken Unknown] aspirin 81 mg chewable tablet 81 mg PO DAILY@0800 ##90 08/28/20 [Rx Last Taken 06/12/21] baclofen 5 mg tablet 5 mg PO QHS 07/19/22 [History Last Taken Unknown] bumetanide 2 mg tablet 2 mg PO 07/19/22 [History Last Taken Unknown] calcitriol 0.25 mcg capsule (Rocaltrol) 0.25 mcg PO DAILY 07/19/22 [History Last Taken Unknown] hydrocodone-acetaminophen 5-325mg 5mg-325mg 1 tab PO Q6H PRN 07/19/22 [History Last Taken Unknown] levothyroxine 25 mcg tablet 175 mcg PO DAILY Thyroid 07/19/22 [History Last Taken Unknown] lidocaine 5 % topical patch 1 patch transdermal 07/19/22 [History Last Taken Unknown] losartan 100 mg tablet 100 mg PO 07/19/22 [History Last Taken Unknown] omega-3 fatty acids 1,000 mg capsule 1,000 mg PO DAILY 07/19/22 [History Last Taken Unknown] sitagliptin phosphate 25 mg tablet (Januvia) 25 mg PO DAILY 07/19/22 [History Last Taken Unknown] Allergy/AdvReac Type Severity Reaction Status Date / Time No Known Allergies Allergy Verified 08/05/22 12:43 Family History Father Diabetes Heart disease Hypertension Surgical History History of left heart catheterization (LHC) (~08/27/20) History of right hemicolectomy History of tonsillectomy Social History Smoking Status: Former smoker Electronic Cigarette Use: not used how long ago did patient quit smoking: Smoked for a couple of months when he was 16 second hand exposure: No alcohol intake: never substance use type: does not use ROS ROS ED Constitutional Constitutional ED: Reports weakness; Denies chills or fever(s) Eyes Eyes: Denies change in vision or diplopia ENT ENT ED: Denies rhinorrhea or sore throat Cardiovascular Cardiovascular: Denies chest pain or palpitations Respiratory/Chest Respiratory/Chest: Denies cough or dyspnea Gastrointestinal Gastrointestinal: Denies abdominal pain, diarrhea, nausea or vomiting Musculoskeletal Musculoskeletal: Reports as per HPI and extremity pain; Denies back pain or neck pain Integumentary Denies abscess or rash Neurologic Neurologic: Denies headache(s), paresthesias or weakness Psychiatric Psychiatric: Denies anxiety or suicidal thoughts EXAM Physical Exam Const Vital Signs: 08/05/22 12:40 Temperature 97.2 F L Temperature Source Temporal Pulse Rate 69 Respiratory Rate 18 Pulse Ox 100 Oxygen Delivery Method Room Air Positive well nourished and well developed General Appearance ED: well developed and NAD HEENT Reports moist mucous membranes normocephalic and atraumatic Eyes PERRL and EOMs intact bilaterally Neck full ROM and supple Resp normal respiratory effort and clear to auscultation bilaterally Cardio regular rate, regular rhythm and no murmurs GI non-tender and non-distended Auscultation: normoactive bowel sounds Palpation: soft Back/Spine no CVA tenderness General Back: other FROM Extremity Extremity Narrative: Right upper extremity in sling, no deformities at shoulder, neurovascularly intact distally. Full range of motion throughout the other 3 extremities, but left foot is foul-smelling seeping wet gangrenous toes 4-5 with surrounding erythema into the lateral aspect of the forefoot, the proximal aspect of the midfoot and hindfoot and ankle are all unaffected. General Extremety ED: Yes edema and tenderness; Negative for pulses abnormal General Extremity: edema bilateral lower extremity Details: moderate; Negative for pulses abnormal Neuro oriented x3, CN's II-XII intact bilaterally and no sensory deficits noted Sensorium / Orientation: awake and alert Motor Exam: strength 5/5 throughout Skin no rashes or lesions noted and no wounds MDM MDM MDM Narrative Medical decision making narrative: Work-up started, patient does have a significant leukocytosis that has been increasing, ESR and CRP are elevated but his ESR is a little lower than it was couple days ago, he is not hyperkalemic and his electrolytes are noted with a sodium of 129, that does not need to be emergently treated at this time. Discussed with podiatry and hospitalist. I reviewed his three-view left foot x-ray, I interpreted it as likely subcutaneous gas formation. It appears to be localized to the forefoot and not spreading down fascial planes. Dr. Lyn recommends vancomycin, Zosyn, clindamycin if we do not know what he is on, I have still not received any paperwork from the retirement that he resides at, so I am not sure what he is currently on. Will discuss with hospitalist, podiatry asked that we make the patient n.p.o. so they can sort out when they will take him to the operating room. Lab Data Attestation: I reviewed the patient's lab results. Labs: Laboratory Results - last 24 hr 08/05/22 08/05/22 13:30 13:30 WBC 24.3 H RBC 3.18 L Hgb 10.1 L Hct 29.6 L MCV 93.1 MCH 31.8 MCHC 34.1 RDW Std Deviation 48.6 H RDW Coeff of [place] 14.4 Plt Count 294 MPV 10.7 Immature Gran % (Auto) 0.600 Neut % (Auto) 88.7 H Lymph % (Auto) 2.1 L [place] % (Auto) 7.3 Eos % (Auto) 1.0 Baso % (Auto) 0.3 Absolute Neuts (auto) 21.5 H Absolute Lymphs (auto) 0.50 L Nucleated RBC % 0 ESR 70 H Sodium 129 L Potassium 3.5 Chloride 90 L Carbon Dioxide 30.0 BUN 52 H Creatinine 4.13 H Estim Creat Clear Calc 20.51 Est GFR (MDRD) Af Amer 19 L Est GFR (MDRD) Non-Af 16 L BUN/Creatinine Ratio 12.6 Glucose 187 H Calcium 10.0 Phosphorus 4.3 C-React Prot Ext Range 171.00 H Albumin 2.4 L Radiography Diagnostic Testing: Clinical Impression(s) from Imaging Studies Foot X-Ray 08/05/22 13:31 IMPRESSION: Suspicious erosive changes in the remaining proximal phalanx of the great toe and in the distal aspect of the first metatarsal to suspect osteomyelitis. There is associated significant soft tissue swelling and subcutaneous emphysema in the volar tissues. Cortical irregularity also noted in the proximal medial aspect of the proximal second phalanx which may represent a fracture or osteomyelitis Polyarticular arthrosis particularly at the first MTP joint and in the PIP and DIP joints of the lesser toes. Vascular calcifications suggest underlying diabetes Electronically Signed: Jamar Bai MD at 14:05 EDT Reading Location ID and State: [facility] / [place] , Service support , Management Discussion w/another healthcare provider: Hospitalist and Other (podiatry Dr. Lyn) Discharge Plan Triage Chief Complaint: Lower Extremity Injury ED Provider: Carlos Kendall Dx/Rx/DC Orders Clinical Impression: Gangrene of left foot, ESRD on dialysis Prescriptions: No Action hydrocodone-acetaminophen 5-325 mg tablet 1 tab PO Q6H PRN bumetanide 2 mg tablet 2 mg PO Label Comments: TAKE 1 TABLET BY MOUTH THREE TIMES DAILY omega-3 fatty acids 1,000 mg capsule 1,000 mg PO DAILY losartan 100 mg tablet 100 mg PO Label Comments: TAKE 1 TABLET BY MOUTH EVERY DAY lidocaine 5 % adhesive patch,medicated 1 patch transdermal Label Comments: APPLY ONE PATCH DAILY calcitriol [Rocaltrol] 0.25 mcg capsule 0.25 mcg PO DAILY Januvia 25 mg tablet 25 mg PO DAILY baclofen 5 mg tablet 5 mg PO QHS esomeprazole magnesium 20 MG capsule,delayed release(DR/EC) 20 mg PO PRN PRN (Reason: GERD) amlodipine 10 MG tablet 10 mg PO DAILY Qty: 30 0RF levothyroxine 25 mcg tablet 175 mcg PO DAILY insulin NPH isoph U-100 human 100 UNIT/ML suspension See Protocol SQ PRN PRN (Reason: diabetes) Protocol: 6. Sliding Scale Insulin Custom Condition: mg/dl range Dose/Route: Number of Units Protocol Text: Custom Sliding Scale Label Comments: inject TEN units SUBCUTANEOUSLY TWICE DAILY FOR 30 DAYS aspirin 81 MG tablet,chewable 81 mg PO DAILY@0800 Qty: 90 0RF Primary Care Provider: Hortensia Reno NP Referrals: Hortensia Reno NP, ELECTRONIC CALIBRATION TECHNICIAN-C [Primary Care Provider] - Disposition Disposition: Acute Care Hospital [facility]
--- NOTE | 2022-08-05 13:31 | RAD_ITS ---
STUDY: X-RAY - LEFT FOOT CLINICAL: Male, 57 years old. Pain and swelling TECHNIQUE: 3 view(s) of the foot. COMPARISON: None. FINDINGS: Normal talus and tarsal bones. Calcaneal spurs Intertarsal joint spaces well-preserved there is narrowing of the tarsometatarsal joint spaces and between the metatarsophalangeal joint spaces. There is been previous amputation of the distal phalanx of the great toe and the distal half of the proximal phalanx. Degenerative arthrosis noted between the PIP and DIP joints. There is suspicious erosive changes noted in the residual proximal phalanx of the great toe within the distal metatarsal the great toe to suspect osteomyelitis. This is a comminuted by diffuse soft tissue swelling and extensive subcutaneous emphysema. There is also subtle erosive change in the medial aspect of the proximal second phalanx which may represent a fracture or erosive lesion. Vascular calcification suggests underlying diabetes. RAD/Foot min 3 Views IMPRESSION: Suspicious erosive changes in the remaining proximal phalanx of the great toe and in the distal aspect of the first metatarsal to suspect osteomyelitis. There is associated significant soft tissue swelling and subcutaneous emphysema in the volar tissues. Cortical irregularity also noted in the proximal medial aspect of the proximal second phalanx which may represent a fracture or osteomyelitis Polyarticular arthrosis particularly at the first MTP joint and in the PIP and DIP joints of the lesser toes. Vascular calcifications suggest underlying diabetes Electronically Signed: Jamar Bai MD at 14:05 EDT ,
[2022-08-05 13:43] LABS: Erythrocyte Sedimentation Rate 70 mm/hr (0-20)
[2022-08-05 13:45] LABS: Absolute Neutrophil Count 21.5 X10^3/uL (2.0-7.7); Basophil# 0.08 X10^3/uL; Basophil% 0.3 % (0-1); Eosinophil# 0.24 X10^3/uL; Hematocrit 29.6 % (40-54); Hemoglobin 10.1 g/dL (13.0-16.5); Lymphocyte % 2.1 % (19-41); Mean Corp Hgb Conc 34.1 g/dL (32-36); Mean Corpuscular Hgb 31.8 pg (27.0-32.0); Mean Corpuscular Volume 93.1 fL (80-94); Mean Platelet Vol. 10.7 fl (6.2-12.0); Monocyte# 1.78 X10^3/uL; Monocyte% 7.3 % (0-10); NRBC Flagged by Analyzer 0 % (0-5); Neutrophil # 21.53 X10^3/uL (2.7-7.7); Neutrophil % 88.7 % (47-70); POSITIVE DIFFERENTIAL YES; Platelet Count 294 K/mm3 (150-450); RBC Distribution Width CV 14.4 % (11.6-14.6); RBC Distribution Width SD 48.6 fl (35.1-43.9); Red Blood Count 3.18 M/mm3 (4.6-6.2); White Blood Count 24.3 K/mm3 (4.4-11.0)
[2022-08-05 13:46] LABS: Differential Indicated SCAN CRITERIA MET
[2022-08-05 13:52] LABS: Albumin, Serum 2.4 g/dL (3.2-5.0); BUN 52 mg/dL (7-18); BUN/Creat Ratio 12.6 RATIO (10-20); Chloride 90 mmol/L (98-107); Creatinine, Serum 4.13 mg/dL (0.70-1.30); EST Glomerular Filtration Rate 16 mL/min (>60); Est Glom Filt Rate - Afr Amer 19 mL/min (>60); Estimated Creatinine Clearance 20.51 ml/min; Glucose 187 mg/dL (74-106); Phosphorus 4.3 mg/dL (2.5-4.9); Potassium 3.5 mmol/L (3.5-5.1); Sodium Level 129 mmol/L (136-145)
[2022-08-05] MEDS: Clindamycin 600 MG/50 ML BAG 100 MG IV (15:07)
--- NOTE | 2022-08-05 15:53 | CON.PCM_ITS ---
Assessment & Plan Assessment/Plan (1) Gas gangrene: PLAN: Exam performed. Radiographs reviewed demonstrate significant subcutaneous gas extending from the forefoot into the midfoot region. Gas is limited to the foot. Patient has leukocytosis elevated inflammatory labs. Patient is vitally stable. Patient on hemodialysis last dialyzed 08/04/2022. Hospitalist primary, recommend proceeding with emergent surgical debridement. At this time and all the risks and benefits inherent to the procedure were discussed with the patient in great detail. Due to extent of soft tissue emphysema this is a surgical emergency and we will proceed with open midfoot amputation. We will complete a full vascular work-up upon resolution of infection, but due to nature of the infection we have to proceed any emergent fashion to clear the infection. Recommend ID consult. We will continue to follow patient closely. Patient proceeding with emergent left midfoot amputation at this time. (2) Diabetic infection of left foot: (3) Cellulitis of left foot: (4) Type 2 diabetes mellitus with diabetic polyneuropathy: (5) Peripheral vascular disease, unspecified: HPI Consult Data Date of Consult: 08/05/22 HPI Narrative Reason for Consultation: Gas infection left foot HPI Narrative: ISABELLA ANDERSON, is a 57 M who presents to the ER after seeing his relay engineer Dr. Guerra on recommending hospital admission for surgical debridement and amputation. Patient is a type II diabetic with end-stage renal disease on hemodialysis. Patient notes recently his diabetes has been well controlled noting a recent A1c of 6. Patient does state that 3 years prior his A1c did float around 9-10. Significant neuropathy and arterial to bilateral lower extremity. Patient denies any constitutional's at current or pain to the wound site. Patient is in a long term facility at which time they noticed increasing swelling redness drainage malodor to the left lower extremity. Patient was subsequently seen by Dr. Bermudez and sent to [facility] emergency room. 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 Problem with dialysis access Home Medications esomeprazole magnesium 20 mg capsule,delayed release 20 mg PO PRN PRN GERD 05/06/19 [History Last Taken 08/05/22] calcitriol 0.25 mcg capsule (Rocaltrol) 1.25 mcg PO MOWEFR DIALYSIS 07/19/22 [History Last Taken 08/04/22] lidocaine 5 % topical patch 1 patch transdermal DAILY RIGHT SHOULDER 07/19/22 [History Last Taken 08/05/22] losartan 100 mg tablet 100 mg PO DAILY BLOOD PRESSURE 07/19/22 [History Last Taken 08/05/22] sitagliptin phosphate 25 mg tablet (Januvia) 25 mg PO DAILY DIABETES 07/19/22 [History Last Taken 08/05/22] acetaminophen 325 mg tablet 650 mg PO Q4H PRN Pain 08/05/22 [History Last Taken 08/01/22] amino acids-protein hydrolysate 17 gram-100 kcal/30 mL oral liquid (Pro-Stat AWC) 30 ml PO BID NUTRITIONAL SUPPLEMENT 08/05/22 [History Last Taken 08/05/22] amlodipine 10 mg tablet 10 mg PO DAILY BLOOD PRESSURE 08/05/22 [History Last Taken 08/05/22] ascorbic acid (vitamin C) 500 mg tablet (Vitamin C) 500 mg PO DAILY SUPPLEMENT 08/05/22 [History Last Taken 08/05/22] aspirin 81 mg tablet,delayed release 81 mg PO DAILY HEART HEALTH 08/05/22 [History Last Taken 08/05/22] bumetanide 2 mg tablet 2 mg PO BID FLUID 08/05/22 [History Last Taken 08/05/22] doxycycline monohydrate 100 mg capsule 100 mg PO BID CHRONIC FOOT WOUND 08/05/22 [History Last Taken 08/05/22] insulin NPH isoph U-100 human 100 unit/mL (3 mL) subcutaneous pen (Humulin N NPH U-100 Insulin KwikPen) 10 unit subcut QHS DIABETES 08/05/22 [History Last Taken 08/04/22] insulin NPH isoph U-100 human 100 unit/mL (3 mL) subcutaneous pen (Humulin N NPH U-100 Insulin KwikPen) See Protocol subcut UD DIABETES 08/05/22 [History Last Taken 08/05/22 12:00] levothyroxine 200 mcg tablet 200 mcg PO DAILY THYROID 08/05/22 [History Last Taken 08/05/22] melatonin 3 mg tablet 6 mg PO QHS SLEEP 08/05/22 [History Last Taken 08/04/22] multivitamin,tx-minerals 1 tab PO DAILY SUPPLEMENT 08/05/22 [History Last Taken 08/05/22] pantoprazole 40 mg tablet,delayed release 40 mg PO DAILY GERD 08/05/22 [History Last Taken 08/05/22] polyethylene glycol 3350 17 gram oral powder packet (Miralax) 17 g PO BID CONSTIPATION 08/05/22 [History Last Taken 08/05/22] psyllium seed (sugar) oral powder 1 tbsp PO BID CONSTIPATION 08/05/22 [History Last Taken 08/05/22] vitamin B complex and vitamin C no.20-folic acid 1 mg capsule (Renal Caps) 1 cap PO DAILY KIDNEY SUPPLEMENT 08/05/22 [History Last Taken 08/05/22] Allergy/AdvReac Type Severity Reaction Status Date / Time No Known Allergies Allergy Verified 08/05/22 12:43 Family History Father Diabetes Heart disease Hypertension Surgical History History of left heart catheterization (LHC) (~08/27/20) History of right hemicolectomy History of tonsillectomy Social History Smoking Status: Former smoker Electronic Cigarette Use: not used how long ago did patient quit smoking: Smoked for a couple of months when he was 16 second hand exposure: No alcohol intake: never substance use type: does not use ROS Constitutional Constitutional: Denies daytime sleepiness, headache(s) or stops breathing during sleep Eyes Eyes: Denies acute decrease in peripheral vision, change in vision or double vision ENT HEENT: Denies bleeding gums, ear pain or lip swelling Cardiovascular Cardiovascular: Reports erythema on extremities; Denies abdominal edema or chest pain at rest Respiratory/Chest Respiratory/Chest: Denies inability to speak, pain with cough or restlessness Gastrointestinal Gastrointestinal: Denies belching, bloating or constipation Genitourinary Genitourinary: Reports anuria Physical Exam Narrative Patient is AAOx3. Vascular: Diminished pulses to bilateral feet. Diffuse edema and warmth to left foot extending into ankle. Neurologic: Light touch protective sensation absent to bilateral feet. Dermatologic: Full-thickness necrosis of the left fifth and fourth digit with necrosis extending to the plantar midfoot along the course of the flexor tendons. Significant edema malodor erythema warmth and crepitus to the area. Musculoskeletal: No gross musculoskeletal deformity contributing to wound format ion Lab / Micro Data Result Diagrams: 08/05/22 13:30 08/05/22 13:30 Labs: Laboratory Results - last 24 hr 08/05/22 13:30: WBC 24.3 H, RBC 3.18 L, Hgb 10.1 L, Hct 29.6 L, MCV 93.1, MCH 31.8, MCHC 34.1, RDW Std Deviation 48.6 H, RDW Coeff of [place] 14.4, Plt Count 294, MPV 10.7, Immature Gran % (Auto) 0.600, Neut % (Auto) 88.7 H, Lymph % (Auto) 2.1 L, [place] % (Auto) 7.3, Eos % (Auto) 1.0, Baso % (Auto) 0.3, Absolute Neuts (auto) 21.5 H, Absolute Lymphs (auto) 0.50 L, Nucleated RBC % 0, Differential Comment COMMENT, Diff Path Review September, ESR 70 H 08/05/22 13:30: Sodium 129 L, Potassium 3.5, Chloride 90 L, Carbon Dioxide 30.0, BUN 52 H, Creatinine 4.13 H, Estim Creat Clear Calc 20.51, Est GFR (MDRD) Af Amer 19 L, Est GFR (MDRD) Non-Af 16 L, BUN/Creatinine Ratio 12.6, Glucose 187 H, Calcium 10.0, Phosphorus 4.3, C-React Prot Ext Range 171.00 H, Albumin 2.4 L Radiology Impression Foot X-Ray 08/05/22 13:31 IMPRESSION: Suspicious erosive changes in the remaining proximal phalanx of the great toe and in the distal aspect of the first metatarsal to suspect osteomyelitis. There is associated significant soft tissue swelling and subcutaneous emphysema in the volar tissues. Cortical irregularity also noted in the proximal medial aspect of the proximal second phalanx which may represent a fracture or osteomyelitis Polyarticular arthrosis particularly at the first MTP joint and in the PIP and DIP joints of the lesser toes. Vascular calcifications suggest underlying diabetes Electronically Signed: Jamar Bai MD at 14:05 EDT ,
--- NOTE | 2022-08-05 15:55 | RAD_ITS ---
INDICATION: LEFT FOOT EXAMINATION/TECHNIQUE: X-RAY - LEFT XR Foot 2 intraoperative views COMPARISON: None. FINDINGS: Status post transmetatarsal amputation of the foot . Bony details are limited. RAD/Foot 2 Views IMPRESSION: Transmetatarsal amputation of the foot. Electronically Signed: Adrián Nieves DO at 21:09 EDT ,
--- NOTE | 2022-08-05 16:00 | BON_PTH ---
PATIENT: ISABELLA ANDERSON Jr. LOC: [facility] U#:[id number] AGE/SX: 57/M ROOM: [facility] RE08/05/[address]: Dr. Drew Sheldon DO : 1965 BED: 1 DIS: 08/21/2022 SPEC #: [id number] RECD: 08/06/22 11:07 STATUS: DORINDA REDon #: [id number] RINKU: 08/05/22 16:[address]: Earnest Lyn DEPT: SURGICAL PATHOLOGY RECD BY: Emmy Hunter ENTERED: 08/06/22 11:48 SP TYPE: Bone OTHR DR: DO Dr. Earnest Conrad, DPM Dr. Arias Mcbride, MD Dr. Scott Godinez Dr., MD Elizabeth Steiner, FINISHING TRIMMER-C Tissues: Foot, NOS Procedures: Decalcification bone/plaque Surgery Specimen Level IV Comments: @ Ordering doctor for DEC edited from to DR.DBULLA Paredes by KENNETH at 08/06/22 1451 @ Ordering doctor for SUV edited from to @ by KENNETH at 08/06/22 1454 @ Submitting doctor edited from to @ by KENNETH at 08/06/22 1453 HEADER OPERATION: Left partially closed amputation at level of mid foot PRE-OP DIAGNOSIS: Left foot gas gangrene TISSUE SUBMITTED: Left foot bone and tissue fourth and fifth toes MICROSCOPIC DIAGNOSIS Left bone and tissue, fourth and fifth toes, amputation at the level of mid foot: Focal ulceration, acute inflammation and abscess formation. Focal fat necrosis and dystrophic calcification. Bone with acute osteomyelitis. SJ:hemant 08/11/2022 MICROSCOPIC DESCRIPTION Slides are reviewed. GROSS DESCRIPTION Received in fixative is one container labeled with the patient's name and designated left foot bone and tissue fourth and fifth toes. The specimen consists of a portion of foot containing two toes (fourth and fifth toes) measuring 9.0 x 5.0 x 3.5 cm. Adjacent to the fifth toe, the lateral surface shows an extensive area of ulceration measuring 3.0 x 2.5 cm. The skin also shows brownish discoloration. A focal area of ulceration is also noted at the tip of the toe adjacent to the nail and on the dorsal surface of the toe measuring 1.0 and 0.7 cm in greatest dimension. The first, second and third toes are absent. Also present in the container are multiple pieces of skin and soft tissue measuring in aggregate 10.0 x 9.0 x 2.0 cm. Also present in the container is a piece of tissue also containing three metatarsal bones measuring 6.0 x 5.0 x 1.5 cm. Two metatarsal bones are also present measuring 5.0 x 3.5 x 2.0 cm. Also present in the container are multiple pieces of bone, portion of metatarsal, measuring in aggregate 7.0 x 6.0 x 2.0 cm. Scarf And Anneal Operator sections are submitted in five cassettes as follows: 1 & 2 ? ulcerated area adjacent to the fifth toe and detached pieces of tissue, 3-5 ? bone from toe and also metatarsal after decalcification. / BETHANY:hemant 08/06/2022 TC:2 CPT: 61333, 99303
--- NOTE | 2022-08-05 16:15 | HP.PCM.HOS_ITS ---
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 In the ED he had an x-ray which showed gas, white blood cell count 24.3, ESR 70 with CRP 171, sodium 129 with chloride 90. BUN 52 with a creatinine of 4.13. Podiatry contacted and recommended urgent/emergent surgery. Hospitalist consulted for admission. Patient reports that his left foot has slowly been worsening until he said it went from dry gangrene to wet gangrene and has had a significant amount of pain. He reports he feels his vision has been worsening recently that this wax and wanes. Has also been having diarrhea but reports is because of the amount of MiraLAX he was given and he has not taken it since yesterday now. Has some generalized weakness but did shatter his right shoulder and is following as an outpatient for this and reports pain and frustration in regards to this. Also feels somewhat down with all of his medical comorbidities. Did not voice any other complaints. 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 Problem with dialysis access Home Medications esomeprazole magnesium 20 mg capsule,delayed release 20 mg PO PRN PRN GERD 05/06/19 [History Last Taken 08/05/22] calcitriol 0.25 mcg capsule (Rocaltrol) 1.25 mcg PO MOWEFR DIALYSIS 07/19/22 [History Last Taken 08/04/22] lidocaine 5 % topical patch 1 patch transdermal DAILY RIGHT SHOULDER 07/19/22 [History Last Taken 08/05/22] losartan 100 mg tablet 100 mg PO DAILY BLOOD PRESSURE 07/19/22 [History Last Taken 08/05/22] sitagliptin phosphate 25 mg tablet (Januvia) 25 mg PO DAILY DIABETES 07/19/22 [History Last Taken 08/05/22] acetaminophen 325 mg tablet 650 mg PO Q4H PRN Pain 08/05/22 [History Last Taken 08/01/22] amino acids-protein hydrolysate 17 gram-100 kcal/30 mL oral liquid (Pro-Stat AWC) 30 ml PO BID NUTRITIONAL SUPPLEMENT 08/05/22 [History Last Taken 08/05/22] amlodipine 10 mg tablet 10 mg PO DAILY BLOOD PRESSURE 08/05/22 [History Last Taken 08/05/22] ascorbic acid (vitamin C) 500 mg tablet (Vitamin C) 500 mg PO DAILY SUPPLEMENT 08/05/22 [History Last Taken 08/05/22] aspirin 81 mg tablet,delayed release 81 mg PO DAILY HEART HEALTH 08/05/22 [His tory Last Taken 08/05/22] bumetanide 2 mg tablet 2 mg PO BID FLUID 08/05/22 [History Last Taken 08/05/22] doxycycline monohydrate 100 mg capsule 100 mg PO BID CHRONIC FOOT WOUND 08/05/22 [History Last Taken 08/05/22] insulin NPH isoph U-100 human 100 unit/mL (3 mL) subcutaneous pen (Humulin N NPH U-100 Insulin KwikPen) 10 unit subcut QHS DIABETES 08/05/22 [History Last Taken 08/04/22] insulin NPH isoph U-100 human 100 unit/mL (3 mL) subcutaneous pen (Humulin N NPH U-100 Insulin KwikPen) See Protocol subcut UD DIABETES 08/05/22 [History Last Taken 08/05/22 12:00] levothyroxine 200 mcg tablet 200 mcg PO DAILY THYROID 08/05/22 [History Last Taken 08/05/22] melatonin 3 mg tablet 6 mg PO QHS SLEEP 08/05/22 [History Last Taken 08/04/22] multivitamin,tx-minerals 1 tab PO DAILY SUPPLEMENT 08/05/22 [History Last Taken 08/05/22] pantoprazole 40 mg tablet,delayed release 40 mg PO DAILY GERD 08/05/22 [History Last Taken 08/05/22] polyethylene glycol 3350 17 gram oral powder packet (Miralax) 17 g PO BID CONSTIPATION 08/05/22 [History Last Taken 08/05/22] psyllium seed (sugar) oral powder 1 tbsp PO BID CONSTIPATION 08/05/22 [History Last Taken 08/05/22] vitamin B complex and vitamin C no.20-folic acid 1 mg capsule (Renal Caps) 1 cap PO DAILY KIDNEY SUPPLEMENT 08/05/22 [History Last Taken 08/05/22] Allergy/AdvReac Type Severity Reaction Status Date / Time No Known Allergies Allergy Verified 08/05/22 12:43 Family History Father Diabetes Heart disease Hypertension Surgical History History of left heart catheterization (LHC) (~08/27/20) History of right hemicolectomy History of tonsillectomy Social History Smoking Status: Former smoker Electronic Cigarette Use: not used how long ago did patient quit smoking: Smoked for a couple of months when he was 16 second hand exposure: No alcohol intake: never substance use type: does not use ROS ROS Narrative General: Denies fever/chills HENT: Denies headache, denies stuffy nose, denies sore throat EYES: Chronic waxing and waning in vision Resp: Denies cough, denies shortness of breath Cardiac: Denies chest pain GI: Denies abdominal pain, has had some diarrhea, denies nausea/vomiting : Denies changes in urination Extremity: Denies swelling MSK: Generalized weakness Neuro: Denies any numbness/tingling Heme: Denies any bleeding or bruising Skin: Left foot with black toes in the lateral 2 digits Psychiatric: No complaints voiced Vital Signs Vital Signs Vital Signs: 08/05/22 12:40 08/05/22 15:03 08/05/22 15:06 Temperature 97.2 F L 97.6 F L 97.6 F L Temperature Source Temporal Oral Oral Pulse Rate 69 68 69 Respiratory Rate 18 14 14 Blood Pressure 126/41 H 126/41 H Blood Pressure Mean 69 69 Pulse Ox 100 99 97 Oxygen Delivery Method Room Air Room Air Room Air Weight Weight: 93.9 kg Body Mass Index (BMI) 28.8 Physical Exam Narrative General: Alert, oriented HEENT: Atraumatic, normocephalic Eyes: Anicteric, normal conjunctiva, extraocular movements grossly intact Neck: Supple Respiratory: Clear to auscultation bilaterally, normal respiratory effort Cardiovascular: Regular rate GI: Soft, nontender, nondistended Extremities: No edema, amputation of first toe on left foot Musculoskeletal: Right upper extremity in sling Neuro: No overt focal neurological deficits Skin: Black toes with drainage and some surrounding erythema on the lateral 2 digits on left foot Psych: Somewhat anxious Results Lab / Micro Data Result Diagrams: 08/05/22 13:30 08/05/22 13:30 Labs: Laboratory Results - last 24 hr 08/05/22 13:30: WBC 24.3 H, RBC 3.18 L, Hgb 10.1 L, Hct 29.6 L, MCV 93.1, MCH 31.8, MCHC 34.1, RDW Std Deviation 48.6 H, RDW Coeff of [place] 14.4, Plt Count 294, MPV 10.7, Immature Gran % (Auto) 0.600, Neut % (Auto) 88.7 H, Lymph % (Auto) 2.1 L, [place] % (Auto) 7.3, Eos % (Auto) 1.0, Baso % (Auto) 0.3, Absolute Neuts (auto) 21.5 H, Absolute Lymphs (auto) 0.50 L, Nucleated RBC % 0, Differential Comment COMMENT, Diff Path Review September, ESR 70 H 08/05/22 13:30: Sodium 129 L, Potassium 3.5, Chloride 90 L, Carbon Dioxide 30.0, BUN 52 H, Creatinine 4.13 H, Estim Creat Clear Calc 20.51, Est GFR (MDRD) Af Amer 19 L, Est GFR (MDRD) Non-Af 16 L, BUN/Creatinine Ratio 12.6, Glucose 187 H, Calcium 10.0, Phosphorus 4.3, C-React Prot Ext Range 171.00 H, Albumin 2.4 L Radiology Impression Foot X-Ray 08/05/22 13:31 IMPRESSION: Suspicious erosive changes in the remaining proximal phalanx of the great toe and in the distal aspect of the first metatarsal to suspect osteomyelitis. There is associated significant soft tissue swelling and subcutaneous emphysema in the volar tissues. Cortical irregularity also noted in the proximal medial aspect of the proximal second phalanx which may represent a fracture or osteomyelitis Polyarticular arthrosis particularly at the first MTP joint and in the PIP and DIP joints of the lesser toes. Vascular calcifications suggest underlying diabetes Electronically Signed: Jamar Bai MD at 14:05 EDT , Assessment & Plan Assessment/Plan (1) Type 2 diabetes mellitus with diabetic polyneuropathy: (2) Diabetic infection of left foot: (3) Peripheral vascular disease, unspecified: (4) Gas gangrene: PLAN: Plan #Left foot gas gangrene -X-ray of foot showed suspicious erosive changes in the remaining paroxysmal phalanx of the great toe and in the distal aspect of the first metatarsal suspicious of osteomyelitis as well as significant soft tissue and subcutaneous emphysema in the volar tissues. Additional suspicion for osteomyelitis in the proximal medial aspect of the proximal second phalanx. -Discussed with podiatry, Dr. Lyn, patient for OR -Received vancomycin, Zosyn, clindamycin, will continue pending cultures -Cultures pending -We will consult infectious disease -Consult wound care -We will schedule Tylenol and as needed medication to be added -Holding antihypertensives at this time but will need to be restarted after surgery if BP stable #End-stage renal disease on HD -Tuesday, last dialyzed 3/ -Consult nephrology -Patient for surgery this afternoon, holding Bumex #Type 2 diabetes mellitus -Hold sitagliptin -Glucose checks and sliding scale insulin -Decrease night NPH to 5 units until patient has adequate p.o. #Right shoulder fracture -Currently in swing, following up as an outpatient -PT/OT -Pain control #Atrial fibrillation -Monitor on telemetry #Hypothyroidism -Continue Synthroid #DVT ppx: Lovenox subcu Erin Lizama MD Time spent in the patient's overall evaluation,decision-making process, review of diagnostic data, adjustment of management, discussion with other providers, nursing nursing and ancillary staff involved in patient's care documentation, 60 minutes Charges/Coding Visit Charges Inpatient E&M: 90884 Init Hosp L2
[2022-08-05] MEDS: Lidocaine 1% (30 ml sdv) 30 ML Vial (16:40)
--- NOTE | 2022-08-05 18:43 | PCM.OPRPT ---
Problems Associated Problem List Diagnoses (1) Diabetic infection of left foot: (2) Gangrene of left foot: (3) ESRD on dialysis: (4) Type 2 diabetes mellitus with diabetic polyneuropathy: Report of Operation Date of Procedure: 08/05/22 Pre-Operative Diagnosis: 1) Left foot gas gangrene 2) Type II diabetes in setting of PAD, neuropathy, ESRD Post-Operative Diagnosis: Same Surgery/Procedure Performed:: 1) Partially closed amputation transmetatarsal on the left side Description of Surgical Findings:: Patient had a severe gas infection to the left foot confirmed on x-ray with necrosis of digits 4/5 extending along the deep flexor tendons plantarly in a posteromedial direction. Upon debridement and amputation there was healthy bleeding with no residual purulence or necrotic tissue. Wound could only be closed partially due to lack of soft tissue coverage due to extent of debridement plantarly. Surgeon: Earnest Lyn rodent exterminator: None (Brooke VILLAFUERTE) Type of Anesthesia: MAC/Supplemental Special Medications: 20cc 1.0% lidocaine plain in an ankle block technique Specimen's removed: Left forefoot pre/post lavage swab cultures Drains: none Estimated Blood Loss (mL): 300cc Description of Procedure: Patient was brought back the operating placed comfortably in supine position on the operating room table. Patient was induced under MAC anesthesia. Once cleared by anesthesia an aseptic ankle block was performed using 20 cc of 1.0% lidocaine plain. Well-padded left ankle tourniquet was applied. Left lower extremity scrubbed prepped draped using typical aseptic fashion. Once cleared by anesthesia the left lower extremity was elevated exsanguinated tourniquet was inflated to 250 mmHg. Total tourniquet time was noted to be less than 90 minutes. There is diffuse necrosis to the fourth and fifth digits with gas infection extending in a posterior medial direction along the plantar foot and transversely across the dorsal foot as evidenced by radiographs and crepitus to this area. Decision preoperatively was made for transmetatarsal amputation and patient was consented. A fishmouth incision with additional resection of the necrotic tissue extending into the posterior medial midfoot was drawn and made using a 15 blade full-thickness through epidermis dermis down to bone. Initially the first second third fourth and fifth digits were excised at the level of the metatarsal phalangeal joints. This time any bleeders were cauterized. A large dorsal flap and plantar flap was made using additional dissection. There is noted to be diffuse necrosis along the dorsal lateral left forefoot as well as the plantar medial midfoot. This necrotic tissue and tendons were debrided using a rongeur until healthy granular bleeding tissue was noted. On initial incision there is noted to be purulence tracking along the dorsal lateral foot and posterior medial plantar midfoot this was swabbed cultured. The first second and third fourth and fifth metatarsals were then excised maintaining the metatarsal parabola using a sagittal saw. These were sent to the back table. The left fourth and fifth digit necrotic tissue and bone was sent to microbiology for further examination. The remaining tissue that was resected was sent for pathology examination. Upon complete resection of all necrotic and nonviable tissue there is noted to be healthy bleeding granular tissue remaining. The site was flushed with copious amounts of normal sterile saline using low-pressure pulse lavage. Post lavage swab cultures were then taken. Tourniquet was deflated any bleeders were cauterized and hand tied. Adequate hemostasis was noted. Tourniquet time was noted to be less than 90 minutes. This time there is a large plantar flap extending from the plantar medial tissue that remained. This was remodeled with the additional dorsal flap that remained in the incision was closed dorsally all the way across the amputation site. This was closed using 2-0 Prolene using simple interrupted technique. There is a large plantar medial wound which cannot be closed due to lack of soft tissue coverage and need to allow any additional infection to drain out from the site. This defect tracked along the flexor tendon sheaths and would ultimately be packed with Surgicel iodoform packing. Incisional sites were dressed with Betadine paint Adaptic. 4 x 4's ABD pads cast padding Angel bandages comprising a well-padded Green compression dressing were applied. Patient was then transferred to PACU with vital signs stable vascular status intact for further monitoring prior to transfer back to the floor. Patient tolerated procedure and anesthesia well in apparent satisfactory condition. We will monitor the patient closely as he may require additional surgical debridement pending any residual infection. I recommend infectious disease consult with long-term IV antibiotics. Admit VTE Documentation VTE Present on Admission: Yes VTE Mechan Device Prophylaxis: SCD's VTE Pharm Prophylaxis ordered?: Yes
--- NOTE | 2022-08-05 19:04 | RAD_ITS ---
EXAM: XR LEFT FOOT COMPLETE, 3 OR MORE VIEWS CLINICAL INDICATION: left foot amputation TECHNIQUE: Frontal, lateral and oblique views of the left foot. This report was created using Showpad report generation technology. COMPARISON: None. FINDINGS: BONES/JOINTS: Small calcaneal enthesophytes. Remote amputation of the forefoot. No erosive change or radiographic evidence for osteomyelitis seen. SOFT TISSUES: Soft tissue thickening/scarring at the amputation site. No radiopaque foreign bodies or soft tissue gas. VASCULATURE: Peripheral vascular calcifications anteriorly and posteriorly about the extremity. RAD/Foot min 3 Views IMPRESSION: Sequela of left forefoot amputation with no convincing evidence for acute fracture or osteomyelitis. MRI is more sensitive if still concerned for osteomyelitis. Electronically Signed: Osman Henley MD at 21:36 EDT ,
--- NOTE | 2022-08-05 20:12 | PCM.RX.CS ---
Consult Pharmacy has been consulted to manage selected antiobiotic: Vancomycin Type of Consult: New start Prior Doses of Antibiotics Received/Current Regimen: Medications Discontinued Medications Vancomycin HCl 1,500 mg/ (Sodium Chloride) 530 mls @ 250 mls/hr IV X1 ONE Stop: 08/05/22 16:26 Last Admin: 08/05/22 18:10 Dose: Infused Labs: Sodium 129 mmol/L (136-145) L 08/05/22 13:30 Potassium 3.5 mmol/L (3.5-5.1) 08/05/22 13:30 Chloride 90 mmol/L (98-107) L 08/05/22 13:30 Carbon Dioxide 30.0 mmol/L (21.0-32.0) 08/05/22 13:30 BUN 52 mg/dL (7-18) H 08/05/22 13:30 Creatinine 4.13 mg/dL (0.70-1.30) H 08/05/22 13:30 Est GFR (MDRD) Af Amer 19 mL/min (>60) L 08/05/22 13:30 Est GFR (MDRD) Non-Af 16 mL/min (>60) L 08/05/22 13:30 BUN/Creatinine Ratio 12.6 RATIO (10-20) 08/05/22 13:30 Glucose 187 mg/dL (74-106) H 08/05/22 13:30 Weight used for dosin kg Goal Trough: 15-20 mcg/mL Pharmacy Plan for Drug Dosing: Patient got vancomycin 1500mg IV x1, will wait for dialysis session orders before entering dose 2 or level. Pharmacy Service will continue to monitor and adjust dosing as required.
[2022-08-05] MEDS: oxyCODONE 5 MG Tablet PO (21:07)
[2022-08-05] MEDS: Clindamycin 900 MG/50 ML BAG 75 MG IV (21:07)
[2022-08-05] MEDS: Acetaminophen 500 MG Tablet 1000 MG PO (23:29)
[2022-08-05] MEDS: MELATONIN 3 MG TABLET 6 MG PO (23:30)
[2022-08-06] VITALS (9 sets, daily range): BP systolic 117–150; BP diastolic 33–55; PULSE 59–70; RESP 16–18; TEMP 36.1–36.8; O2SAT 94–100; BMI 28.8
[2022-08-06 01:05] LABS: Bedside Glucose 166 mg/dL (74-106)
[2022-08-06] MEDS: Acetaminophen 500 MG Tablet 1000 MG PO ×3 (05:16→22:58)
[2022-08-06] MEDS: Levothyroxine 100 MCG Tablet 200 MCG PO (05:17)
[2022-08-06] MEDS: oxyCODONE 5 MG Tablet PO ×2 (05:23→13:55)
[2022-08-06] MEDS: Clindamycin 900 MG/50 ML BAG 75 MG IV ×2 (05:25→21:39)
[2022-08-06 06:52] LABS: Absolute Lymphocyte Count 0.55 X10^3/uL (0.83-4.51); Absolute Neutrophil Count 15.4 X10^3/uL (2.0-7.7); Basophil# 0.06 X10^3/uL; Basophil% 0.3 % (0-1); Eosinophil# 0.29 X10^3/uL; Eosinophils% 1.6 % (0-5); Hematocrit 20.7 % (40-54); Hemoglobin 6.9 g/dL (13.0-16.5); Lymphocyte # 0.55 X10^3/ul (0.83-4.51); Lymphocyte % 3.1 % (19-41); Mean Corp Hgb Conc 33.3 g/dL (32-36); Mean Corpuscular Hgb 31.4 pg (27.0-32.0); Mean Corpuscular Volume 94.1 fL (80-94); Mean Platelet Vol. 10.3 fl (6.2-12.0); Monocyte# 1.26 X10^3/uL; Monocyte% 7.1 % (0-10); NRBC Flagged by Analyzer 0 % (0-5); Neutrophil # 15.44 X10^3/uL (2.7-7.7); Neutrophil % 87.2 % (47-70); POSITIVE DIFFERENTIAL YES; Platelet Count 233 K/mm3 (150-450); RBC Distribution Width CV 13.8 % (11.6-14.6); RBC Distribution Width SD 47.6 fl (35.1-43.9); White Blood Count 17.7 K/mm3 (4.4-11.0)
[2022-08-06 06:59] LABS: Differential Indicated SCAN CRITERIA MET
[2022-08-06 07:11] LABS: Bedside Glucose 161 mg/dL (74-106)
[2022-08-06 07:38] LABS: ALB/GLOB Ratio 0.5 RATIO (0.9-2.4); AST(SGOT) 13 U/L (15-37); Alanine Aminotransfer ALT/SGPT < 6 U/L (16-61); Albumin, Serum 1.9 g/dL (3.2-5.0); Alkaline Phosphatase 161 U/L (45-117); Anion Gap 12 (5-15); BUN 59 mg/dL (7-18); BUN/Creat Ratio 12.4 RATIO (10-20); Calcium,Total 8.7 mg/dL (8.5-10.1); Chloride 92 mmol/L (98-107); Creatinine, Serum 4.74 mg/dL (0.70-1.30); EST Glomerular Filtration Rate 14 mL/min (>60); Est Glom Filt Rate - Afr Amer 16 mL/min (>60); Estimated Creatinine Clearance 17.87 ml/min; Globulin 3.6 g/dL (2.2-4.2); Glucose 162 mg/dL (74-106); Protein, Total 5.5 g/dL (6.4-8.2); Sodium Level 132 mmol/L (136-145); Thyroid Stim Hormone (TSH) 3.61 uIU/mL (0.358-3.74)
--- NOTE | 2022-08-06 08:29 | PN.HOSP_ITS ---
Reason for Visit Reason for Visit: Diagnoses Gas gangrene (08/05/22) Type 2 diabetes mellitus with diabetic polyneuropathy (08/05/22) Type 2 diabetes mellitus with other skin complications (08/05/22) Peripheral vascular disease, unspecified (08/05/22) Gangrene, not elsewhere classified (08/05/22) Cellulitis of left lower limb (08/05/22) Local infection of the skin and subcutaneous tissue, unspecified (08/05/22) End stage renal disease (08/05/22) Dependence on renal dialysis (08/05/22) Subjective Subjective Feeling well. Anxious about being discharged and eventually getting home. Objective Data Objective Data Vital Signs: Vital Signs Temp Pulse Resp BP Pulse Ox O2 Del Method O2 Flow Rate 36.1 C L 62 18 119/55 L 100 Room Air 2 08/06/22 05:10 08/06/22 05:10 08/06/22 05:10 08/06/22 05:10 08/06/22 05:10 08/06/22 05:10 08/05/22 22:16 Oxygen Flow Rate (L/min) 2 Oxygen Delivery Method Room Air Weight: 93.6 kg Body Mass Index (BMI) 28.8 Intake & Output: Intake and Output for Last 24 Hours 08/04/22 08/05/22 08/06/22 23:59 23:59 23:59 Intake Total 779.75 / 779.75 100 / 100 Balance 779.75 / 779.75 100 / 100 Lab / Micro Data Result Diagrams: 08/06/22 05:45 08/06/22 05:45 Labs: Laboratory Results - last 24 hr 08/05/22 13:30: WBC 24.3 H, RBC 3.18 L, Hgb 10.1 L, Hct 29.6 L, MCV 93.1, MCH 31.8, MCHC 34.1, RDW Std Deviation 48.6 H, RDW Coeff of Glen 14.4, Plt Count 294, MPV 10.7, Immature Gran % (Auto) 0.600, Neut % (Auto) 88.7 H, Lymph % (Auto) 2.1 L, [place] % (Auto) 7.3, Eos % (Auto) 1.0, Baso % (Auto) 0.3, Absolute Neuts (auto) 21.5 H, Absolute Lymphs (auto) 0.50 L, Nucleated RBC % 0, Differential Comment COMMENT, Diff Path Review September, ESR 70 H 08/05/22 13:30: Sodium 129 L, Potassium 3.5, Chloride 90 L, Carbon Dioxide 30.0, BUN 52 H, Creatinine 4.13 H, Estim Creat Clear Calc 20.51, Est GFR (MDRD) Af Amer 19 L, Est GFR (MDRD) Non-Af 16 L, BUN/Creatinine Ratio 12.6, Glucose 187 H, Calcium 10.0, Phosphorus 4.3, C-React Prot Ext Range 171.00 H, Albumin 2.4 L 08/05/22 23:28: POC Glucose 166 H 08/06/22 05:45: WBC 17.7 H, RBC 2.20 L, Hgb 6.9 L, Hct 20.7 L, MCV 94.1 H, MCH 31.4, MCHC 33.3, RDW Std Deviation 47.6 H, RDW Coeff of Glen 13.8, Plt Count 233, MPV 10.3, Immature Gran % (Auto) 0.700, Neut % (Auto) 87.2 H, Lymph % (Auto) 3.1 L, [place] % (Auto) 7.1, Eos % (Auto) 1.6, Baso % (Auto) 0.3, Absolute Neuts (auto) 15.4 H, Absolute Lymphs (auto) 0.55 L, Nucleated RBC % 0, Differential Comment COMMENT 08/06/22 05:45: Sodium 132 L, Potassium 4.0, Chloride 92 L, Carbon Dioxide 28.0, Anion Gap 12, BUN 59 H, Creatinine 4.74 H, Estim Creat Clear Calc 17.87, Est GFR (MDRD) Af Amer 16 L, Est GFR (MDRD) Non-Af 14 L, BUN/Creatinine Ratio 12.4, Glucose 162 H, Calcium 8.7, Total Bilirubin 0.80, AST 13 L, ALT < 6 L, Alkaline Phosphatase 161 H, Total Protein 5.5 L, Albumin 1.9 L, Globulin 3.6, Albumin/Globulin Ratio 0.5 L, TSH 3.61 08/06/22 06:21: POC Glucose 161 H Radiography Diagnostic Testing: Radiology Impression Foot X-Ray 08/05/22 13:31 IMPRESSION: Suspicious erosive changes in the remaining proximal phalanx of the great toe and in the distal aspect of the first metatarsal to suspect osteomyelitis. There is associated significant soft tissue swelling and subcutaneous emphysema in the volar tissues. Cortical irregularity also noted in the proximal medial aspect of the proximal second phalanx which may represent a fracture or osteomyelitis Polyarticular arthrosis particularly at the first MTP joint and in the PIP and DIP joints of the lesser toes. Vascular calcifications suggest underlying diabetes Electronically Signed: Jamar Bai MD at 14:05 EDT , Foot X-Ray 08/05/22 15:55 IMPRESSION: Transmetatarsal amputation of the foot. Electronically Signed: Adrián Nieves DO at 21:09 EDT , Foot X-Ray 08/05/22 19:04 IMPRESSION: Sequela of left forefoot amputation with no convincing evidence for acute fracture or osteomyelitis. MRI is more sensitive if still concerned for osteomyelitis. Electronically Signed: Osman Henley MD at 21:36 EDT , Physical Exam Const Constitutional Narrative: Very conversant. No acute distress. Pleasant. HEENT head/scalp atraumatic and moist oral mucous membranes Resp normal respiratory effort, no retractions, no use of accessory muscles and clear to auscultation bilaterally Cardio regular rate, regular rhythm, S1 normal heart sound and S2 normal heart sound GI normal to inspection, nondistended, normoactive bowel sounds, soft to palpation, non-tender and non-distended Extremity Extremity Narrative: Right foot and leg wrapped. Pictures from today were visualized and show that the sutures in place and the incision is well approximated. Right arm in sling. Lidoderm patch over right shoulder. Psych affect normal Assessment & Plan Assessment/Plan (1) Gas gangrene: PLAN: Left foot gas gangrene -X-ray of foot showed suspicious erosive changes in the remaining paroxysmal phalanx of the great toe and in the distal aspect of the first metatarsal suspicious of osteomyelitis as well as significant soft tissue and subcutaneous emphysema in the volar tissues. Additional suspicion for osteomyelitis in the proximal medial aspect of the proximal second phalanx. -Received vancomycin, Zosyn, clindamycin, will continue pending cultures -Cultures pending -We will consult infectious disease -Consult wound care -We will schedule Tylenol and as needed medication to be added -Holding antihypertensives at this time but will need to be restarted after surgery if BP stable 08/05: pt underwent partially closed amputation of transmetatarsal on the left side. Continue with wound care (2) Type 2 diabetes mellitus with diabetic polyneuropathy: PLAN: -Glucose checks and sliding scale insulin. Patient okay to use his Pearescopestyle reader. Patient states that he takes NPH 2-3 times per week if he has a blood sugar of around 200. Will resume Sitagliptin. Continue with sliding scale. I did tell the patient that it is usage event pH is unusual and we would monitor his blood sugar to see how best we should treat his diabetes.. (3) ESRD (end stage renal disease): PLAN: #End-stage renal disease on HD -Tuesday, last dialyzed 3/ -Consult nephrology -Patient for surgery this afternoon, holding Bumex (4) Acute blood loss anemia: PLAN: Hemoglobin dropped from 10.1-6.9. We will transfuse 1 unit packed red blood cells. Monitor hemoglobin PLAN: Plan Other chronic stable conditions: * Right shoulder fracture-Currently in swing, following up as an outpatient PT/OT -Pain control * Atrial fibrillation -Monitor on telemetry * Hypothyroidism -Continue Synthroid * PAD: continue ASA. #DVT ppx: SCDs Charges/Coding Visit Charges Inpatient E&M: 95140 Subs Hosp L2
[2022-08-06] MEDS: LINAGLIPTIN 5 MG TABLET PO (08:55)
[2022-08-06] MEDS: Calcitriol 0.25 MCG Capsule 1.25 MCG PO (08:55)
[2022-08-06] MEDS: Pantoprazole Sodium 40 MG Tablet PO (08:56)
[2022-08-06] MEDS: Losartan Potassium 100 MG Tablet PO (08:56)
[2022-08-06] MEDS: HYDROmorphone Inj 0.2 MG/ML SYRINGE IV ×2 (08:56→18:26)
[2022-08-06] MEDS: Aspirin E.C. 81 MG Tablet PO (08:56)
[2022-08-06] MEDS: Bumetanide 2 MG Tablet PO ×2 (08:56→18:26)
--- NOTE | 2022-08-06 09:32 | WOUNDNOTE ---
wound photo: left foot
--- NOTE | 2022-08-06 09:33 | WOUNDNOTE ---
wound photo: left foot
--- NOTE | 2022-08-06 10:40 | PN_ITS ---
Subjective Subjective Patient seen bedside this morning, noted some burning to left foot and leg, but pain otherwise controlled. Patient denies constituionals, no new complaints Objective Data Objective Data Vital Signs: Vital Signs Temp Pulse Resp BP Pulse Ox O2 Del Method O2 Flow Rate 98.3 F 70 18 128/48 H 99 Room Air 2 08/06/22 08:52 08/06/22 08:52 08/06/22 08:52 08/06/22 08:52 08/06/22 08:52 08/06/22 08:52 08/05/22 22:16 Oxygen Flow Rate (L/min) 2 Oxygen Delivery Method Room Air Weight: 93.6 kg Body Mass Index (BMI) 28.8 Intake & Output: Intake and Output for Last 24 Hours 08/04/22 08/05/22 08/06/22 23:59 23:59 23:59 Intake Total 779.75 / 779.75 278.75 / 278.75 Balance 779.75 / 779.75 278.75 / 278.75 Lab / Micro Data Result Diagrams: 08/06/22 05:45 08/06/22 05:45 Labs: Laboratory Results - last 24 hr 08/05/22 13:30: WBC 24.3 H, RBC 3.18 L, Hgb 10.1 L, Hct 29.6 L, MCV 93.1, MCH 31.8, MCHC 34.1, RDW Std Deviation 48.6 H, RDW Coeff of Glen 14.4, Plt Count 294, MPV 10.7, Immature Gran % (Auto) 0.600, Neut % (Auto) 88.7 H, Lymph % (Auto) 2.1 L, [place] % (Auto) 7.3, Eos % (Auto) 1.0, Baso % (Auto) 0.3, Absolute Neuts (auto) 21.5 H, Absolute Lymphs (auto) 0.50 L, Nucleated RBC % 0, Differential Comment COMMENT, Diff Path Review September, ESR 70 H 08/05/22 13:30: Sodium 129 L, Potassium 3.5, Chloride 90 L, Carbon Dioxide 30.0, BUN 52 H, Creatinine 4.13 H, Estim Creat Clear Calc 20.51, Est GFR (MDRD) Af Amer 19 L, Est GFR (MDRD) Non-Af 16 L, BUN/Creatinine Ratio 12.6, Glucose 187 H, Calcium 10.0, Phosphorus 4.3, C-React Prot Ext Range 171.00 H, Albumin 2.4 L 08/05/22 23:28: POC Glucose 166 H 08/06/22 05:45: WBC 17.7 H, RBC 2.20 L, Hgb 6.9 L, Hct 20.7 L, MCV 94.1 H, MCH 31.4, MCHC 33.3, RDW Std Deviation 47.6 H, RDW Coeff of Glen 13.8, Plt Count 233, MPV 10.3, Immature Gran % (Auto) 0.700, Neut % (Auto) 87.2 H, Lymph % (Auto) 3.1 L, [place] % (Auto) 7.1, Eos % (Auto) 1.6, Baso % (Auto) 0.3, Absolute Neuts (auto) 15.4 H, Absolute Lymphs (auto) 0.55 L, Nucleated RBC % 0, Differential Comment COMMENT 08/06/22 05:45: Sodium 132 L, Potassium 4.0, Chloride 92 L, Carbon Dioxide 28.0, Anion Gap 12, BUN 59 H, Creatinine 4.74 H, Estim Creat Clear Calc 17.87, Est GFR (MDRD) Af Amer 16 L, Est GFR (MDRD) Non-Af 14 L, BUN/Creatinine Ratio 12.4, Glucose 162 H, Calcium 8.7, Total Bilirubin 0.80, AST 13 L, ALT < 6 L, Alkaline Phosphatase 161 H, Total Protein 5.5 L, Albumin 1.9 L, Globulin 3.6, Albumin/Globulin Ratio 0.5 L, TSH 3.61 08/06/22 06:21: POC Glucose 161 H Radiography Diagnostic Testing: Radiology Impression Foot X-Ray 08/05/22 13:31 IMPRESSION: Suspicious erosive changes in the remaining proximal phalanx of the great toe and in the distal aspect of the first metatarsal to suspect osteomyelitis. There is associated significant soft tissue swelling and subcutaneous emphysema in the volar tissues. Cortical irregularity also noted in the proximal medial aspect of the proximal second phalanx which may represent a fracture or osteomyelitis Polyarticular arthrosis particularly at the first MTP joint and in the PIP and DIP joints of the lesser toes. Vascular calcifications suggest underlying diabetes Electronically Signed: Jamar Bai MD at 14:05 EDT , Foot X-Ray 08/05/22 15:55 IMPRESSION: Transmetatarsal amputation of the foot. Electronically Signed: Adrián Nieves DO at 21:09 EDT , Foot X-Ray 08/05/22 19:04 IMPRESSION: Sequela of left forefoot amputation with no convincing evidence for acute fracture or osteomyelitis. MRI is more sensitive if still concerned for osteomyelitis. Electronically Signed: Osman Henley MD at 21:36 EDT , Physical Exam Narrative Neurovascular status unchanged Skin incision with healthy flap intact with intact sutures, focal ulceration following course of flexor tendons present, mild sanguinous drainage noted. No residual signs of infection at current. Transmetatarsal amputation noted to left side. Assessment & Plan Assessment/Plan (1) Peripheral vascular disease, unspecified: PLAN: Exam performed TMA site looks healthy, will consider wound vac to plantar ulceration if no recurrent infection over the next couple of days patient had elevated white count of 24 down trending to 17 today Patient had gas infection, recommend addition of clindamycin to IV vanc/zosyn recommend ID consult Patient NWB on left Recommend SNF placement, patient may require wound vac changes at a facility Will plan to follow patient weekly as an outpatient (2) Type 2 diabetes mellitus with diabetic polyneuropathy: (3) Cellulitis of left foot: (4) Diabetic infection of left foot: (5) Gas gangrene:
--- NOTE | 2022-08-06 11:15 | CASEMGMT ---
RN CM Face to Face with patient for initial transition planning/care coordination assessment. RN CM introduced self and role at [facility]. Patient lying in bed, alert and oriented. Patient willing to participate in assessment and is able to answer all questions appropriately. Care providers, pharmacy, and demographics verified. Patient wishes not to discharge back to [facility] and is interested in possible [facility]ach or another SNF, [facility]. Patient states he has no further needs or concerns at this time. CM to follow for discharge planning needs that may arise. PCP:Rowdy Specialists: Eboni loading machine adjuster; Brook aircraft navigator Preferred Pharmacy: [facility] Insurance: [employer] Prescription Benefit: yes Living Will/HPOA: none, interested in completing LNOK: brother, sister Living Arrangements: Patient was currently residing at [facility] for care. Will need SNF vs [facility] at discharge. Will monitor IV ATBs and course of treatment Disposition Plan: SNF vs [facility] Eriak REYES, RN, CM
--- NOTE | 2022-08-06 11:59 | NURSING ---
1145-This RN into room to check pt's glucose. PT/OT at bedside in middle of transfer from bed to chair. Upon pt sitting in chair and feet being elevated, it was noted that pt's left foot surgical wound is bleeding through the dressing. Called Deja, wound RN and informed of bleeding. Asked is she would like this RN to change dressing, she stated that she will come and redress. pt refused to allow this RN to check fingerstick glucose and used his dexcom to obtain blood glucose level of 163. Spoke with Dr Mcbride who gave ok to use pt's dexcom for blood glucoses. Verbal order also given to nelli/sancho mays.
[2022-08-06] MEDS: Insulin Lispro 100 UNIT/ML INSULN.PEN SC ×2 (12:15→22:59)
[2022-08-06 12:42] LABS: Pathologist Review Reviewed
--- NOTE | 2022-08-06 13:02 | PCM.RX.CS ---
Consult Pharmacy has been consulted to manage selected antiobiotic: Vancomycin Type of Consult: Follow-up Prior Doses of Antibiotics Received/Current Regimen: 1500mg iv x 1 on 08.05.22 Labs: Sodium 132 mmol/L (136-145) L 08/06/22 05:45 Potassium 4.0 mmol/L (3.5-5.1) 08/06/22 05:45 Chloride 92 mmol/L (98-107) L 08/06/22 05:45 Carbon Dioxide 28.0 mmol/L (21.0-32.0) 08/06/22 05:45 Anion Gap 12 (5-15) 08/06/22 05:45 BUN 59 mg/dL (7-18) H 08/06/22 05:45 Creatinine 4.74 mg/dL (0.70-1.30) H 08/06/22 05:45 Est GFR (MDRD) Af Amer 16 mL/min (>60) L 08/06/22 05:45 Est GFR (MDRD) Non-Af 14 mL/min (>60) L 08/06/22 05:45 BUN/Creatinine Ratio 12.4 RATIO (10-20) 08/06/22 05:45 Glucose 162 mg/dL (74-106) H 08/06/22 05:45 Microbiology: Microbiology 08/05/22 14:35 Wound - Toe Gram Stain - Final 08/05/22 14:35 Wound - Toe Wound Culture - Preliminary GPC Poss Enterococcus sp 08/05/22 18:53 Wound - Left Foot Gram Stain - Final 08/05/22 18:53 Wound - Left Foot Wound Culture - Preliminary GPC Poss Enterococcus sp 08/05/22 18:53 Wound - Left Foot Gram Stain - Final 08/05/22 18:53 Wound - Left Foot Wound Culture - Preliminary GPC Poss Enterococcus sp 08/05/22 18:53 Wound - Left Foot Gram Stain - Final 08/05/22 18:53 Wound - Left Foot Wound Culture - Preliminary Gram Positive Cocci Weight used for dosin.6 kg Goal Trough: 15-20 mcg/mL Pharmacy Plan for Drug Dosing: Have ordered 750mg iv x 1 post dialysis today per protocol. Random level ordered for before next dialysis session on 08.09.22. Pharmacy Service will continue to monitor and adjust dosing as required. Follow-Up Labs: Trough Vancomycin - random 08.09.22 @0600
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
--- NOTE | 2022-08-06 13:23 | CON.PCM.RE_ITS ---
Assessment & Plan Assessment/Plan (1) ESRD on dialysis: PLAN: dialysis today and MWF. Pt has been at [facility] past 2 weeks after right shoulder fracture from a fall. (2) Type 2 diabetes mellitus with diabetic polyneuropathy: (3) Gas gangrene: PLAN: iv antibx, leukocytosis (4) Diabetic infection of left foot: PLAN: s/p toe amputation x4 (5) Cellulitis of left foot: PLAN: iv antibx (6) Acute blood loss anemia: PLAN: hgb 6.9g. Transfuse on dialysis HPI Consult Data Date of Consult: 08/06/22 HPI Narrative Reason for Consultation: ESRD HD MWF. HPI Narrative: ISABELLA ANDERSON, is a 57 M who presents to [facility] for diabetic foot ulcer, gangrenous requiring toe amputations last night. Podiatry following. His primary senior application security consultant Dr Doe. He has been at [facility] receiving dialysis there since his fall and right shoulder fracture currently in a sling. He is due for dialysis today and MWF while hospitalized. [facility] Medical History Arterial steal syndrome Atherosclerotic heart disease of [place] coronary artery without angina pectoris Atrial fibrillation Chronic renal failure, stage 5 Crohn's disease Diabetes ESRD (end stage renal disease) on dialysis ESRD on hemodialysis Frequent falls Hyperphosphatemia Hypertension Incidental lung nodule senior care current use of anticoagulant Problem with dialysis access Home Medications esomeprazole magnesium 20 mg capsule,delayed release 20 mg PO PRN PRN GERD 05/06/19 [History Last Taken 08/05/22] calcitriol 0.25 mcg capsule (Rocaltrol) 1.25 mcg PO MOWEFR DIALYSIS 07/19/22 [History Last Taken 08/04/22] lidocaine 5 % topical patch 1 patch transdermal DAILY RIGHT SHOULDER 07/19/22 [History Last Taken 08/05/22] losartan 100 mg tablet 100 mg PO DAILY BLOOD PRESSURE 07/19/22 [History Last Taken 08/05/22] sitagliptin phosphate 25 mg tablet (Januvia) 25 mg PO DAILY DIABETES 07/19/22 [History Last Taken 08/05/22] acetaminophen 325 mg tablet 650 mg PO Q4H PRN Pain 08/05/22 [History Last Taken 08/01/22] amino acids-protein hydrolysate 17 gram-100 kcal/30 mL oral liquid (Pro-Stat AWC) 30 ml PO BID NUTRITIONAL SUPPLEMENT 08/05/22 [History Last Taken 08/05/22] amlodipine 10 mg tablet 10 mg PO DAILY BLOOD PRESSURE 08/05/22 [History Last Taken 08/05/22] ascorbic acid (vitamin C) 500 mg tablet (Vitamin C) 500 mg PO DAILY SUPPLEMENT 08/05/22 [History Last Taken 08/05/22] aspirin 81 mg tablet,delayed release 81 mg PO DAILY HEART HEALTH 08/05/22 [History Last Taken 08/05/22] bumetanide 2 mg tablet 2 mg PO BID FLUID 08/05/22 [History Last Taken 08/05/22] doxycycline monohydrate 100 mg capsule 100 mg PO BID CHRONIC FOOT WOUND 08/05/22 [History Last Taken 08/05/22] insulin NPH isoph U-100 human 100 unit/mL (3 mL) subcutaneous pen (Humulin N NPH U-100 Insulin KwikPen) 10 unit subcut QHS DIABETES 08/05/22 [History Last Taken 08/04/22] insulin NPH isoph U-100 human 100 unit/mL (3 mL) subcutaneous pen (Humulin N NPH U-100 Insulin KwikPen) See Protocol subcut UD DIABETES 08/05/22 [History Last Taken 08/05/22 12:00] levothyroxine 200 mcg tablet 200 mcg PO DAILY THYROID 08/05/22 [History Last Taken 08/05/22] melatonin 3 mg tablet 6 mg PO QHS SLEEP 08/05/22 [History Last Taken 08/04/22] multivitamin,tx-minerals 1 tab PO DAILY SUPPLEMENT 08/05/22 [History Last Taken 08/05/22] pantoprazole 40 mg tablet,delayed release 40 mg PO DAILY GERD 08/05/22 [History Last Taken 08/05/22] polyethylene glycol 3350 17 gram oral powder packet (Miralax) 17 g PO BID CONSTIPATION 08/05/22 [History Last Taken 08/05/22] psyllium seed (sugar) oral powder 1 tbsp PO BID CONSTIPATION 08/05/22 [History Last Taken 08/05/22] vitamin B complex and vitamin C no.20-folic acid 1 mg capsule (Renal Caps) 1 cap PO DAILY KIDNEY SUPPLEMENT 08/05/22 [History Last Taken 08/05/22] Allergy/AdvReac Type Severity Reaction Status Date / Time No Known Allergies Allergy Verified 08/05/22 12:43 Family History Father Diabetes Heart disease Hypertension Surgical History History of left heart catheterization (LHC) (~08/27/20) History of right hemicolectomy History of tonsillectomy Social History Smoking Status: Former smoker Electronic Cigarette Use: not used how long ago did patient quit smoking: Smoked for a couple of months when he was 16 second hand exposure: No alcohol intake: never substance use type: does not use ROS Constitutional Constitutional: Reports weakness; Denies chills or fever(s) Eyes Eyes: Denies loss of vision Cardiovascular Cardiovascular: Denies edema or syncope Gastrointestinal Gastrointestinal: Denies abdominal pain or anorexia Musculoskeletal Musculoskeletal: Reports other Details: AVF left arm, s/p amputation of 4 toes, legs wrapped Neurologic Neurologic: Reports weakness Hematologic/Lymphatic Hematologic/Lymphatic: Reports anemia Physical Exam Const alert and oriented x3 General Appearance: well developed Resp clear to auscultation bilaterally Cardio regular rate GI non-tender and non-distended Auscultation: normoactive bowel sounds Palpation: soft Extremity General Extremity: edema Neuro moves all extremities Sensorium / Orientation: awake and alert Psych cooperative Lab / Micro Data Result Diagrams: 08/06/22 05:45 08/06/22 05:45 Labs: Laboratory Results - last 24 hr 08/05/22 13:30: WBC 24.3 H, RBC 3.18 L, Hgb 10.1 L, Hct 29.6 L, MCV 93.1, MCH 31.8, MCHC 34.1, RDW Std Deviation 48.6 H, RDW Coeff of [place] 14.4, Plt Count 294, MPV 10.7, Immature Gran % (Auto) 0.600, Neut % (Auto) 88.7 H, Lymph % (Auto) 2.1 L, [place] % (Auto) 7.3, Eos % (Auto) 1.0, Baso % (Auto) 0.3, Absolute Neuts (auto) 21.5 H, Absolute Lymphs (auto) 0.50 L, Nucleated RBC % 0, Differential Comment COMMENT, Diff Path Review Reviewed, ESR 70 H 08/05/22 13:30: Sodium 129 L, Potassium 3.5, Chloride 90 L, Carbon Dioxide 30.0, BUN 52 H, Creatinine 4.13 H, Estim Creat Clear Calc 20.51, Est GFR (MDRD) Af Amer 19 L, Est GFR (MDRD) Non-Af 16 L, BUN/Creatinine Ratio 12.6, Glucose 187 H, Calcium 10.0, Phosphorus 4.3, C-React Prot Ext Range 171.00 H, Albumin 2.4 L 08/05/22 23:28: POC Glucose 166 H 08/06/22 05:45: WBC 17.7 H, RBC 2.20 L, Hgb 6.9 L, Hct 20.7 L, MCV 94.1 H, MCH 31.4, MCHC 33.3, RDW Std Deviation 47.6 H, RDW Coeff of [place] 13.8, Plt Count 233, MPV 10.3, Immature Gran % (Auto) 0.700, Neut % (Auto) 87.2 H, Lymph % (Auto) 3.1 L, [place] % (Auto) 7.1, Eos % (Auto) 1.6, Baso % (Auto) 0.3, Absolute Neuts (auto) 15.4 H, Absolute Lymphs (auto) 0.55 L, Nucleated RBC % 0, Differential Comment COMMENT 08/06/22 05:45: Sodium 132 L, Potassium 4.0, Chloride 92 L, Carbon Dioxide 28.0, Anion Gap 12, BUN 59 H, Creatinine 4.74 H, Estim Creat Clear Calc 17.87, Est GFR (MDRD) Af Amer 16 L, Est GFR (MDRD) Non-Af 14 L, BUN/Creatinine Ratio 12.4, Glucose 162 H, Calcium 8.7, Total Bilirubin 0.80, AST 13 L, ALT < 6 L, Alkaline Phosphatase 161 H, Total Protein 5.5 L, Albumin 1.9 L, Globulin 3.6, Albumin/Globulin Ratio 0.5 L, TSH 3.61 08/06/22 06:21: POC Glucose 161 H Micro: Microbiology 08/05/22 14:35 Wound - Toe Gram Stain - Final 08/05/22 14:35 Wound - Toe Wound Culture - Preliminary GPC Poss Enterococcus sp 08/05/22 18:53 Wound - Left Foot Gram Stain - Final 08/05/22 18:53 Wound - Left Foot Wound Culture - Preliminary GPC Poss Enterococcus sp 08/05/22 18:53 Wound - Left Foot Gram Stain - Final 08/05/22 18:53 Wound - Left Foot Wound Culture - Preliminary GPC Poss Enterococcus sp 08/05/22 18:53 Wound - Left Foot Gram Stain - Final 08/05/22 18:53 Wound - Left Foot Wound Culture - Preliminary Gram Positive Cocci Radiology Impression Foot X-Ray 08/05/22 13:31 IMPRESSION: Suspicious erosive changes in the remaining proximal phalanx of the great toe and in the distal aspect of the first metatarsal to suspect osteomyelitis. There is associated significant soft tissue swelling and subcutaneous emphysema in the volar tissues. Cortical irregularity also noted in the proximal medial aspect of the proximal second phalanx which may represent a fracture or osteomyelitis Polyarticular arthrosis particularly at the first MTP joint and in the PIP and DIP joints of the lesser toes. Vascular calcifications suggest underlying diabetes Electronically Signed: Jamar Bai MD at 14:05 EDT , Foot X-Ray 08/05/22 15:55 IMPRESSION: Transmetatarsal amputation of the foot. Electronically Signed: Adrián Nieves DO at 21:09 EDT , Foot X-Ray 08/05/22 19:04 IMPRESSION: Sequela of left forefoot amputation with no convincing evidence for acute fracture or osteomyelitis. MRI is more sensitive if still concerned for osteomyelitis. Electronically Signed: Osman Henley MD at 21:36 EDT ,
--- NOTE | 2022-08-06 15:51 | NURSING ---
1 unit PRBCs being administered with dialysis through [facility]HAEL fistula.
[2022-08-06] MEDS: Juven (unflavored) Packet 1 PACKET PO (18:26)
[2022-08-06] MEDS: 0.9% Saline Lock 10 ML Syringe IV (18:26)
[2022-08-06] MEDS: MELATONIN 3 MG TABLET 6 MG PO (22:59)
[2022-08-06] MEDS: Insulin NPH Human 100 UNITS/ML PEN SC (23:03)
[2022-08-07 03:15] VITALS: BP 122/60; PULSE 88; RESP 16; TEMP 36.6; O2SAT 96
[2022-08-07 05:46] VITALS: BMI 28.9
[2022-08-07] MEDS: Acetaminophen 500 MG Tablet 1000 MG PO ×3 (06:09→21:06)
[2022-08-07] MEDS: Levothyroxine 100 MCG Tablet 200 MCG PO (06:09)
[2022-08-07] MEDS: Clindamycin 900 MG/50 ML BAG 75 MG IV ×3 (06:11→20:59)
[2022-08-07] MEDS: Insulin Lispro 100 UNIT/ML INSULN.PEN SC ×4 (06:14→21:05)
--- NOTE | 2022-08-07 07:50 | PN.HOSP_ITS ---
Reason for Visit Reason for Visit: Diagnoses Gas gangrene (08/05/22) Acute posthemorrhagic anemia (08/05/22) Type 2 diabetes mellitus with diabetic polyneuropathy (08/05/22) Type 2 diabetes mellitus with other skin complications (08/05/22) Peripheral vascular disease, unspecified (08/05/22) Gangrene, not elsewhere classified (08/05/22) Cellulitis of left lower limb (08/05/22) Local infection of the skin and subcutaneous tissue, unspecified (08/05/22) End stage renal disease (08/05/22) Dependence on renal dialysis (08/05/22) Subjective Subjective Feels well. No new events. Objective Data Objective Data Vital Signs: Vital Signs Temp Pulse Resp BP Pulse Ox O2 Del Method O2 Flow Rate 36.6 C 88 16 122/60 H 96 Room Air 2 08/07/22 03:15 08/07/22 03:15 08/07/22 03:15 08/07/22 03:15 08/07/22 03:15 08/07/22 03:15 08/05/22 22:16 Oxygen Flow Rate (L/min) 2 Oxygen Delivery Method Room Air Weight: 94.2 kg Body Mass Index (BMI) 28.9 Intake & Output: Intake and Output for Last 24 Hours 08/05/22 08/06/22 08/07/22 23:59 23:59 23:59 Intake Total 779.75 / 779.75 1543.75 / 1543.75 50 / 50 Output Total 2100 / 2100 Balance 779.75 / 779.75 -556.25 / -556.25 50 / 50 Lab / Micro Data Result Diagrams: 08/07/22 07:48 08/07/22 07:48 Labs: Laboratory Results - last 24 hr 08/05/22 13:30: Diff Path Review Reviewed 08/06/22 13:36: Blood Type A POSITIVE, Antibody Screen NEGATIVE, Crossmatch See Detail Micro: Microbiology 08/05/22 14:35 Wound - Toe Gram Stain - Final 08/05/22 14:35 Wound - Toe Wound Culture - Final Enterococcus faecalis 08/05/22 18:53 Wound - Left Foot Gram Stain - Final 08/05/22 18:53 Wound - Left Foot Wound Culture - Final Enterococcus faecalis 08/05/22 18:53 Wound - Left Foot Gram Stain - Final 08/05/22 18:53 Wound - Left Foot Wound Culture - Final Enterococcus faecalis 08/05/22 18:53 Wound - Left Foot Gram Stain - Final 08/05/22 18:53 Wound - Left Foot Wound Culture - Final Enterococcus faecalis 08/05/22 Unknown Blood Culture (Wb) - Right Hand Blood Culture - Preliminary Physical Exam Const alert and no apparent distress HEENT head/scalp atraumatic and moist oral mucous membranes Resp normal respiratory effort, no retractions, no use of accessory muscles and clear to auscultation bilaterally Cardio regular rate, regular rhythm, S1 normal heart sound and S2 normal heart sound GI normal to inspection, nondistended, normoactive bowel sounds and soft to palpation Extremity Extremity Narrative: Right arm in a sling. She left foot bandaged and wrapped. Did review images with Dr. Lny. Assessment & Plan Assessment/Plan (1) Gas gangrene: PLAN: Left foot gas gangrene: -X-ray of foot showed suspicious erosive changes in the remaining paroxysmal phalanx of the great toe and in the distal aspect of the first metatarsal suspicious of osteomyelitis as well as significant soft tissue and subcutaneous emphysema in the volar tissues. Additional suspicion for osteomyelitis in the proximal medial aspect of the proximal second phalanx. Podiatry, ID and wound care following 08/05: pt underwent partially closed amputation of transmetatarsal on the left side. Cx growing out E. faecalis Abx: clindamycin, vanc and pip/tazo (2) Type 2 diabetes mellitus with diabetic polyneuropathy: PLAN: -Glucose checks and sliding scale insulin. Patient okay to use his [employer] reader. Patient states that he takes NPH 2-3 times per week if he has a blood sugar of around 200. Will resume Sitagliptin. Continue with sliding scale. I did tell the patient that it is usage event pH is unusual and we would monitor his blood sugar to see how best we should treat his diabetes.. (3) ESRD (end stage renal disease): PLAN: #End-stage renal disease on HD -Tuesday, last dialyzed 3/ -Consult nephrology -Patient for surgery this afternoon, holding Bumex (4) Acute blood loss anemia: PLAN: Hemoglobin dropped from 10.1-6.9. Transfuse 1 unit packed red blood cells. Currently hemoglobin 7.5. Continue to monitor for now. PLAN: Plan Other chronic stable conditions: * Right shoulder fracture-Currently in swing, following up as an outpatient PT/OT -Pain control * Atrial fibrillation -Monitor on telemetry * Hypothyroidism -Continue Synthroid * PAD: continue ASA. DVT ppx: SCDs Charges/Coding Visit Charges Inpatient E&M: 64938 Subs Hosp L2
[2022-08-07 08:29] LABS: Basophil# 0.09 X10^3/uL; Basophil% 0.6 % (0-1); Eosinophil# 0.37 X10^3/uL; Eosinophils% 2.4 % (0-5); Hematocrit 22.9 % (40-54); Hemoglobin 7.5 g/dL (13.0-16.5); Lymphocyte % 3.3 % (19-41); Mean Corp Hgb Conc 32.8 g/dL (32-36); Mean Corpuscular Volume 94.6 fL (80-94); Mean Platelet Vol. 10.4 fl (6.2-12.0); Monocyte# 1.26 X10^3/uL; Monocyte% 8.2 % (0-10); NRBC Flagged by Analyzer 0 % (0-5); Neutrophil # 12.96 X10^3/uL (2.7-7.7); Neutrophil % 84.4 % (47-70); POSITIVE DIFFERENTIAL YES; Platelet Count 221 K/mm3 (150-450); RBC Distribution Width CV 14.3 % (11.6-14.6); RBC Distribution Width SD 48.9 fl (35.1-43.9); Red Blood Count 2.42 M/mm3 (4.6-6.2); White Blood Count 15.4 K/mm3 (4.4-11.0)
[2022-08-07 08:32] VITALS: O2SAT 98
[2022-08-07 08:42] LABS: Differential Indicated SCAN CRITERIA MET
[2022-08-07 08:56] LABS: Anion Gap 8 (5-15); BUN 36 mg/dL (7-18); BUN/Creat Ratio 10.9 RATIO (10-20); Chloride 97 mmol/L (98-107); Creatinine, Serum 3.31 mg/dL (0.70-1.30); EST Glomerular Filtration Rate 20 mL/min (>60); Est Glom Filt Rate - Afr Amer 25 mL/min (>60); Estimated Creatinine Clearance 25.59 ml/min; Glucose 201 mg/dL (74-106); Potassium 3.7 mmol/L (3.5-5.1); Sodium Level 135 mmol/L (136-145)
[2022-08-07 09:43] LABS: Platelet Estimate ADEQUATE (ADEQ); Red Cell Morphology NORM C+C NORMAL (NORM C&C)
--- NOTE | 2022-08-07 10:31 | PCM.PROGNOTE ---
Subjective Subjective No changes today. Pain improved. No constitutional's. Objective Data Objective Data Vital Signs: Vital Signs Temp Pulse Resp BP Pulse Ox O2 Del Method O2 Flow Rate 98 F 88 16 122/60 H 98 Room Air 2 08/07/22 03:15 08/07/22 03:15 08/07/22 03:15 08/07/22 03:15 08/07/22 08:32 08/07/22 08:32 08/05/22 22:16 Oxygen Flow Rate (L/min) 2 Oxygen Delivery Method Room Air Weight: 94.2 kg Body Mass Index (BMI) 28.9 Intake & Output: Intake and Output for Last 24 Hours 08/05/22 08/06/22 08/07/22 23:59 23:59 23:59 Intake Total 779.75 / 779.75 1543.75 / 1543.75 50 / 50 Output Total 2100 / 2100 Balance 779.75 / 779.75 -556.25 / -556.25 50 / 50 Lab / Micro Data Result Diagrams: 08/07/22 07:48 08/07/22 07:48 Labs: Laboratory Results - last 24 hr 08/05/22 13:30: Diff Path Review Reviewed 08/06/22 13:36: Blood Type A POSITIVE, Antibody Screen NEGATIVE, Crossmatch See Detail 08/07/22 07:48: WBC 15.4 H, RBC 2.42 L, Hgb 7.5 L, Hct 22.9 L, MCV 94.6 H, MCH 31.0, MCHC 32.8, RDW Std Deviation 48.9 H, RDW Coeff of [place] 14.3, Plt Count 221, MPV 10.4, Immature Gran % (Auto) 1.100 H, Neut % (Auto) 84.4 H, Lymph % (Auto) 3.3 L, [place] % (Auto) 8.2, Eos % (Auto) 2.4, Baso % (Auto) 0.6, Absolute Neuts (auto) 13.0 H, Absolute Lymphs (auto) 0.50 L, Nucleated RBC % 0, Platelet Estimate ADEQUATE, RBC Morphology NORM C+C 08/07/22 07:48: Sodium 135 L, Potassium 3.7, Chloride 97 L, Carbon Dioxide 30.0, Anion Gap 8, BUN 36 H, Creatinine 3.31 H, Estim Creat Clear Calc 25.59, Est GFR (MDRD) Af Amer 25 L, Est GFR (MDRD) Non-Af 20 L, BUN/Creatinine Ratio 10.9, Glucose 201 H, Calcium 9.0 08/07/22 07:48: C-React Prot Ext Range 135.00 H Micro: Microbiology 08/05/22 14:30 Blood Culture (Wb) - Right Hand Blood Culture - Preliminary No growth in 48 hours. 08/05/22 14:35 Wound - Toe Gram Stain - Final 08/05/22 14:35 Wound - Toe Wound Culture - Final Enterococcus faecalis 08/05/22 18:53 Wound - Left Foot Gram Stain - Final 08/05/22 18:53 Wound - Left Foot Wound Culture - Final Enterococcus faecalis 08/05/22 18:53 Wound - Left Foot Gram Stain - Final 08/05/22 18:53 Wound - Left Foot Wound Culture - Final Enterococcus faecalis 08/05/22 18:53 Wound - Left Foot Gram Stain - Final 08/05/22 18:53 Wound - Left Foot Wound Culture - Final Enterococcus faecalis 08/05/22 Unknown Blood Culture (Wb) - Right Hand Blood Culture - Preliminary Physical Exam Narrative Neurovascular status unchanged Skin incision with healthy flap intact with intact sutures, focal ulceration following course of flexor tendons present, mild sanguinous drainage noted. No residual signs of infection at current. Transmetatarsal amputation noted to left side. Assessment & Plan Assessment/Plan (1) Peripheral vascular disease, unspecified: PLAN: Exam performed TMA site looks healthy, will consider wound vac to plantar ulceration if no recurrent infection over the next couple of days WBC 24->17->15. Initial CRP 171, re-ordered today patient vitally stable ID on board; cultures so far + for enterococcus faecalis. Patient receiving IV vanc/clinda/zosyn. Nephrology on board; patient on hemodialysis. Patient NWB on left, continue this. Recommend SNF placement, patient may require wound vac changes at a facility Will continue to follow daily while patient is in the hospital Will plan to follow patient weekly as an outpatient (2) Type 2 diabetes mellitus with diabetic polyneuropathy: (3) Cellulitis of left foot: (4) Diabetic infection of left foot: (5) Gas gangrene:
[2022-08-07 11:54] VITALS: BP 122/45; PULSE 64; RESP 18; TEMP 36.6; O2SAT 96
[2022-08-07] MEDS: amLODIPine 10 MG Tablet PO (11:57)
[2022-08-07] MEDS: Ascorbic Acid 500 MG Tablet PO (11:59)
[2022-08-07] MEDS: LINAGLIPTIN 5 MG TABLET PO (12:00)
[2022-08-07] MEDS: Aspirin E.C. 81 MG Tablet PO (12:00)
[2022-08-07] MEDS: Bumetanide 2 MG Tablet PO ×2 (12:00→17:37)
[2022-08-07] MEDS: Pantoprazole Sodium 40 MG Tablet PO (12:00)
[2022-08-07] MEDS: Losartan Potassium 100 MG Tablet PO (12:01)
[2022-08-07] MEDS: Juven (unflavored) Packet 1 PACKET PO ×2 (12:01→17:39)
[2022-08-07] MEDS: Folic Acid/Vitamin B Comp W-C 1 Capsule 1 CAP PO (12:02)
[2022-08-07] MEDS: oxyCODONE 5 MG Tablet PO ×2 (12:20→21:04)
[2022-08-07 15:14] VITALS: BP 121/47; PULSE 65; RESP 16; TEMP 37.1; O2SAT 97
--- NOTE | 2022-08-07 15:48 | CASEMGMT ---
Social Work SW met w/pt in room in regard to placement after hospital stay. Pt states he is afraid to return to [facility]. SW did provide to pt a list of intermediate facilities in network that take pt's insurance, in preferred geographic area, complete with quality and resource use data. SW explained that we do not know however if he will need SNF or LTACH at discharge. Pt would like to go to a SNF that can do dialysis on site, he is aware there are not any facilities locally that do this other than [facility], pt is willing to go wherever they have dialysis and can manage his wound. SW also spoke w/pt about LW/POA, he would like to complete these forms and make his brother POA. SW explained will let the SW on Tuesday know to follow up in regard to this. Plan: SNF vs LTACH, TBD REGINO Phillip
[2022-08-07 20:49] VITALS: BP 112/48; PULSE 69; RESP 18; TEMP 36.5; O2SAT 97
[2022-08-07] MEDS: Insulin NPH Human 100 UNITS/ML PEN SC (21:05)
[2022-08-07] MEDS: MELATONIN 3 MG TABLET 6 MG PO (21:06)
[2022-08-07] MEDS: 0.9% Saline Lock 10 ML Syringe IV (23:06)
[2022-08-07] MEDS: HYDROmorphone Inj 0.2 MG/ML SYRINGE IV (23:06)
[2022-08-08 02:53] VITALS: BP 101/58; PULSE 63; RESP 18; TEMP 36.4; O2SAT 95
[2022-08-08] MEDS: oxyCODONE 5 MG Tablet PO ×4 (03:00→19:56)
[2022-08-08] MEDS: HYDROmorphone Inj 0.2 MG/ML SYRINGE IV ×2 (05:47→11:16)
[2022-08-08] MEDS: Levothyroxine 100 MCG Tablet 200 MCG PO (05:47)
[2022-08-08] MEDS: Clindamycin 900 MG/50 ML BAG 75 MG IV ×3 (05:52→22:15)
[2022-08-08] MEDS: Acetaminophen 500 MG Tablet 1000 MG PO ×3 (05:52→22:09)
[2022-08-08 06:20] LABS: Absolute Lymphocyte Count 0.65 X10^3/uL (0.83-4.51); Absolute Neutrophil Count 12.5 X10^3/uL (2.0-7.7); Basophil# 0.11 X10^3/uL; Basophil% 0.7 % (0-1); Eosinophil# 0.65 X10^3/uL; Eosinophils% 4.2 % (0-5); Hematocrit 23.4 % (40-54); Hemoglobin 7.6 g/dL (13.0-16.5); Lymphocyte # 0.65 X10^3/ul (0.83-4.51); Lymphocyte % 4.2 % (19-41); Mean Corp Hgb Conc 32.5 g/dL (32-36); Mean Corpuscular Hgb 30.9 pg (27.0-32.0); Mean Corpuscular Volume 95.1 fL (80-94); Mean Platelet Vol. 10.1 fl (6.2-12.0); Monocyte# 1.24 X10^3/uL; Monocyte% 8.1 % (0-10); NRBC Flagged by Analyzer 0 % (0-5); Neutrophil # 12.53 X10^3/uL (2.7-7.7); Neutrophil % 81.5 % (47-70); Platelet Count 245 K/mm3 (150-450); RBC Distribution Width CV 14.2 % (11.6-14.6); RBC Distribution Width SD 49.3 fl (35.1-43.9); Red Blood Count 2.46 M/mm3 (4.6-6.2); White Blood Count 15.4 K/mm3 (4.4-11.0)
[2022-08-08 06:56] LABS: Anion Gap 12 (5-15); BUN 46 mg/dL (7-18); BUN/Creat Ratio 10.8 RATIO (10-20); Calcium,Total 9.1 mg/dL (8.5-10.1); Chloride 97 mmol/L (98-107); Creatinine, Serum 4.25 mg/dL (0.70-1.30); EST Glomerular Filtration Rate 15 mL/min (>60); Est Glom Filt Rate - Afr Amer 19 mL/min (>60); Estimated Creatinine Clearance 19.93 ml/min; Glucose 122 mg/dL (74-106); Potassium 3.6 mmol/L (3.5-5.1); Sodium Level 136 mmol/L (136-145)
[2022-08-08 08:04] VITALS: O2SAT 98
[2022-08-08 08:08] VITALS: BP 113/50; PULSE 59; RESP 16; TEMP 36.4; O2SAT 99
[2022-08-08] MEDS: Juven (unflavored) Packet 1 PACKET PO ×2 (08:14→16:47)
[2022-08-08] MEDS: Losartan Potassium 100 MG Tablet PO (08:14)
[2022-08-08] MEDS: Aspirin E.C. 81 MG Tablet PO (08:14)
[2022-08-08] MEDS: Bumetanide 2 MG Tablet PO ×2 (08:14→16:47)
[2022-08-08] MEDS: Pantoprazole Sodium 40 MG Tablet PO (08:14)
[2022-08-08] MEDS: LINAGLIPTIN 5 MG TABLET PO (08:14)
[2022-08-08] MEDS: Folic Acid/Vitamin B Comp W-C 1 Capsule 1 CAP PO (08:14)
[2022-08-08] MEDS: Ascorbic Acid 500 MG Tablet PO (08:14)
[2022-08-08] MEDS: amLODIPine 10 MG Tablet PO (08:14)
--- NOTE | 2022-08-08 08:34 | PN.HOSP_ITS ---
Reason for Visit Reason for Visit: Diagnoses Gas gangrene (08/05/22) Acute posthemorrhagic anemia (08/05/22) Type 2 diabetes mellitus with diabetic polyneuropathy (08/05/22) Type 2 diabetes mellitus with other skin complications (08/05/22) Peripheral vascular disease, unspecified (08/05/22) Gangrene, not elsewhere classified (08/05/22) Cellulitis of left lower limb (08/05/22) Local infection of the skin and subcutaneous tissue, unspecified (08/05/22) End stage renal disease (08/05/22) Dependence on renal dialysis (08/05/22) Subjective Subjective Feels well. No new complaints. Would like lidoderm patch for right shoulder. Objective Data Objective Data Vital Signs: Vital Signs Temp Pulse Resp BP Pulse Ox O2 Del Method O2 Flow Rate 36.4 C L 59 L 16 113/50 L 99 Room Air 2 08/08/22 08:08 08/08/22 08:08 08/08/22 08:08 08/08/22 08:08 08/08/22 08:08 08/08/22 08:08 08/05/22 22:16 Oxygen Flow Rate (L/min) 2 Oxygen Delivery Method Room Air Weight: 94.2 kg Body Mass Index (BMI) 28.9 Intake & Output: Intake and Output for Last 24 Hours 08/06/22 08/07/22 08/08/22 23:59 23:59 23:59 Intake Total 1543.75 / 1543.75 870.25 / 870.25 395.25 / 395.25 Output Total 2100 / 2100 0 / 0 Balance -556.25 / -556.25 870.25 / 870.25 395.25 / 395.25 Lab / Micro Data Result Diagrams: 08/08/22 05:21 08/08/22 05:21 Labs: Laboratory Results - last 24 hr 08/07/22 07:48: WBC 15.4 H, RBC 2.42 L, Hgb 7.5 L, Hct 22.9 L, MCV 94.6 H, MCH 31.0, MCHC 32.8, RDW Std Deviation 48.9 H, RDW Coeff of [place] 14.3, Plt Count 221, MPV 10.4, Immature Gran % (Auto) 1.100 H, Neut % (Auto) 84.4 H, Lymph % (Auto) 3.3 L, [place] % (Auto) 8.2, Eos % (Auto) 2.4, Baso % (Auto) 0.6, Absolute Neuts (auto) 13.0 H, Absolute Lymphs (auto) 0.50 L, Nucleated RBC % 0, Platelet Estimate ADEQUATE, RBC Morphology NORM C+C 08/07/22 07:48: Sodium 135 L, Potassium 3.7, Chloride 97 L, Carbon Dioxide 30.0, Anion Gap 8, BUN 36 H, Creatinine 3.31 H, Estim Creat Clear Calc 25.59, Est GFR (MDRD) Af Amer 25 L, Est GFR (MDRD) Non-Af 20 L, BUN/Creatinine Ratio 10.9, Glucose 201 H, Calcium 9.0 08/07/22 07:48: C-React Prot Ext Range 135.00 H 08/08/22 05:21: WBC 15.4 H, RBC 2.46 L, Hgb 7.6 L, Hct 23.4 L, MCV 95.1 H, MCH 30.9, MCHC 32.5, RDW Std Deviation 49.3 H, RDW Coeff of [place] 14.2, Plt Count 245, MPV 10.1, Immature Gran % (Auto) 1.300 H, Neut % (Auto) 81.5 H, Lymph % (Auto) 4.2 L, [place] % (Auto) 8.1, Eos % (Auto) 4.2, Baso % (Auto) 0.7, Absolute Neuts (auto) 12.5 H, Absolute Lymphs (auto) 0.65 L, Nucleated RBC % 0 08/08/22 05:21: Sodium 136, Potassium 3.6, Chloride 97 L, Carbon Dioxide 27.0, Anion Gap 12, BUN 46 H, Creatinine 4.25 H, Estim Creat Clear Calc 19.93, Est GFR (MDRD) Af Amer 19 L, Est GFR (MDRD) Non-Af 15 L, BUN/Creatinine Ratio 10.8, Glucose 122 H, Calcium 9.1 Micro: Microbiology 08/05/22 Unknown Blood Culture (Wb) - Right Hand Blood Culture - Preliminary GPC Poss Enterococcus sp 08/05/22 14:30 Blood Culture (Wb) - Right Hand Blood Culture - Preliminary No growth in 48 hours. 08/05/22 14:35 Wound - Toe Gram Stain - Final 08/05/22 14:35 Wound - Toe Wound Culture - Final Enterococcus faecalis 08/05/22 18:53 Wound - Left Foot Gram Stain - Final 08/05/22 18:53 Wound - Left Foot Wound Culture - Final Enterococcus faecalis 08/05/22 18:53 Wound - Left Foot Gram Stain - Final 08/05/22 18:53 Wound - Left Foot Wound Culture - Final Enterococcus faecalis 08/05/22 18:53 Wound - Left Foot Gram Stain - Final 08/05/22 18:53 Wound - Left Foot Wound Culture - Final Enterococcus faecalis Physical Exam Const alert and no apparent distress Resp normal respiratory effort, no retractions, no use of accessory muscles and clear to auscultation bilaterally Cardio regular rate, regular rhythm, S1 normal heart sound and S2 normal heart sound GI normal to inspection, nondistended, normoactive bowel sounds, soft to palpation, non-tender and non-distended Assessment & Plan Assessment/Plan (1) Gas gangrene: PLAN: Left foot gas gangrene: -X-ray of foot showed suspicious erosive changes in the remaining paroxysmal phalanx of the great toe and in the distal aspect of the first metatarsal suspicious of osteomyelitis as well as significant soft ti ssue and subcutaneous emphysema in the volar tissues. Additional suspicion for osteomyelitis in the proximal medial aspect of the proximal second phalanx. Podiatry, ID and wound care following 08/05: pt underwent partially closed amputation of transmetatarsal on the left side. Cx growing out E. faecalis Abx: clindamycin, vanc and pip/tazo (2) Type 2 diabetes mellitus with diabetic polyneuropathy: PLAN: -Glucose checks and sliding scale insulin. Patient okay to use his [employer] reader. Patient states that he takes NPH 2-3 times per week if he has a blood sugar of a round 200. Will resume Sitagliptin. Continue with sliding scale. I did tell the patient that it is usage event pH is unusual and we would monitor his blood sugar to see how best we should treat his diabetes.. (3) ESRD (end stage renal disease): PLAN: #End-stage renal disease on HD -Tuesday, last dialyzed 3/ -Consult nephrology -Patient for surgery this afternoon, holding Bumex (4) Acute blood loss anemia: PLAN: Hemoglobin dropped from 10.1-6.9. Transfuse 1 unit packed red blood cells. Currently hemoglobin 7.5. Continue to monitor for now. (5) Bacteremia: PLAN: possible Enterococcus Suspect due to foot infection. Repeat BCx If repeat BCx positive, repeat Cx and check echo PLAN: Plan Other chronic stable conditions: * Right shoulder fracture-Currently in swing, following up as an outpatient PT/OT -Pain control. Saw Dr. Segovia on 08/04, elbow ROM 3x day. no shoulder ROM at this time. Follow up with Dr. Merida next month. * Atrial fibrillation -Monitor on telemetry * Hypothyroidism -Continue Synthroid * PAD: continue ASA. DVT ppx: SCDs DW pt's sister at bedside. Charges/Coding Visit Charges Inpatient E&M: 15117 Subs Hosp L2
--- NOTE | 2022-08-08 11:01 | PN_ITS ---
Subjective Subjective Patient denies constitutional symptoms today. No new complaints. Pain improving. No signs symptoms DVT. Objective Data Objective Data Vital Signs: Vital Signs Temp Pulse Resp BP Pulse Ox O2 Del Method O2 Flow Rate 97.6 F L 59 L 16 113/50 L 99 Room Air 2 08/08/22 08:08 08/08/22 08:08 08/08/22 08:08 08/08/22 08:08 08/08/22 08:08 08/08/22 08:08 08/05/22 22:16 Oxygen Flow Rate (L/min) 2 Oxygen Delivery Method Room Air Weight: 94.2 kg Body Mass Index (BMI) 28.9 Intake & Output: Intake and Output for Last 24 Hours 08/06/22 08/07/22 08/08/22 23:59 23:59 23:59 Intake Total 1543.75 / 1543.75 870.25 / 870.25 395.25 / 395.25 Output Total 2100 / 2100 0 / 0 Balance -556.25 / -556.25 870.25 / 870.25 395.25 / 395.25 Lab / Micro Data Result Diagrams: 08/08/22 05:21 08/08/22 05:21 Labs: Laboratory Results - last 24 hr 08/08/22 05:21: WBC 15.4 H, RBC 2.46 L, Hgb 7.6 L, Hct 23.4 L, MCV 95.1 H, MCH 30.9, MCHC 32.5, RDW Std Deviation 49.3 H, RDW Coeff of Glen 14.2, Plt Count 245, MPV 10.1, Immature Gran % (Auto) 1.300 H, Neut % (Auto) 81.5 H, Lymph % (Auto) 4.2 L, [place] % (Auto) 8.1, Eos % (Auto) 4.2, Baso % (Auto) 0.7, Absolute Neuts (auto) 12.5 H, Absolute Lymphs (auto) 0.65 L, Nucleated RBC % 0 08/08/22 05:21: Sodium 136, Potassium 3.6, Chloride 97 L, Carbon Dioxide 27.0, Anion Gap 12, BUN 46 H, Creatinine 4.25 H, Estim Creat Clear Calc 19.93, Est GFR (MDRD) Af Amer 19 L, Est GFR (MDRD) Non-Af 15 L, BUN/Creatinine Ratio 10.8, Glucose 122 H, Calcium 9.1 Micro: Microbiology 08/05/22 18:53 Wound - Left Foot Gram Stain - Final 08/05/22 18:53 Wound - Left Foot Wound Culture - Final Enterococcus faecalis 08/05/22 18:53 Wound - Left Foot Anaerobic Culture - Preliminary 08/05/22 18:53 Wound - Left Foot Gram Stain - Final 08/05/22 18:53 Wound - Left Foot Wound Culture - Final Enterococcus faecalis 08/05/22 18:53 Wound - Left Foot Anaerobic Culture - Preliminary 08/05/22 18:53 Wound - Left Foot Gram Stain - Final 08/05/22 18:53 Wound - Left Foot Wound Culture - Final Enterococcus faecalis 08/05/22 18:53 Wound - Left Foot Anaerobic Culture - Preliminary 08/05/22 Unknown Blood Culture (Wb) - Right Hand Blood Culture - Preliminary GPC Poss Enterococcus sp 08/05/22 14:30 Blood Culture (Wb) - Right Hand Blood Culture - Preliminary No growth in 48 hours. 08/05/22 14:35 Wound - Toe Gram Stain - Final 08/05/22 14:35 Wound - Toe Wound Culture - Final Enterococcus faecalis Physical Exam Narrative Neurovascular status unchanged Skin incision with healthy flap intact with intact sutures, focal ulceration following course of flexor tendons present, mild sanguinous drainage noted. No residual signs of infection at current. Transmetatarsal amputation noted to left side. Assessment & Plan Assessment/Plan (1) Peripheral vascular disease, unspecified: PLAN: Exam performed TMA site looks healthy, will consider wound vac to plantar ulceration if no recurrent infection over the next couple of days WBC 24->17->15->15. Initial CRP 171->151. patient vitally stable ID on board; cultures so far + for enterococcus faecalis. Patient receiving IV vanc/clinda/zosyn. Nephrology on board; patient on hemodialysis. Patient NWB on left, continue this. Recommend SNF placement, patient may require wound vac changes at a facility Will continue to follow daily while patient is in the hospital Will plan to follow patient weekly as an outpatient Will continue to observe daily for recurrent infection and consider redebridement if recurrent necrosis and tissue breakdown forms or there is no resolution of inflammatory markers/leukocytosis (2) Type 2 diabetes mellitus with diabetic polyneuropathy: (3) Cellulitis of left foot: (4) Diabetic infection of left foot: (5) Gas gangrene:
[2022-08-08] MEDS: Lidocaine 5% Patch 1 PATCH TOPICAL (11:16)
[2022-08-08] MEDS: 0.9% Saline Lock 10 ML Syringe IV ×2 (11:17→22:22)
--- NOTE | 2022-08-08 11:20 | NURSING ---
dexcom reading 110
[2022-08-08 13:25] VITALS: BP 111/46; PULSE 66; RESP 16; TEMP 36.4; O2SAT 100
[2022-08-08 20:04] VITALS: BP 120/32; PULSE 68; RESP 18; TEMP 36.7; O2SAT 98
--- NOTE | 2022-08-08 20:10 | NURSING ---
pt requested to check his blood glucose, it's 142. will check again at 2200.
[2022-08-08] MEDS: MELATONIN 3 MG TABLET 6 MG PO (22:09)
[2022-08-08] MEDS: Insulin Lispro 100 UNIT/ML INSULN.PEN SC (22:10)
[2022-08-08] MEDS: Insulin NPH Human 100 UNITS/ML PEN SC (22:11)
[2022-08-09] MEDS: 0.9% Saline Lock 10 ML Syringe IV ×2 (00:24→20:29)
[2022-08-09] MEDS: HYDROmorphone Inj 0.2 MG/ML SYRINGE IV ×2 (00:24→08:53)
[2022-08-09 00:30] VITALS: BP 92/52; PULSE 61; RESP 18; TEMP 37.2; O2SAT 95
[2022-08-09 05:34] VITALS: BMI 29.2
[2022-08-09 06:17] VITALS: BP 111/40; PULSE 62; RESP 18; TEMP 36.4; O2SAT 98
[2022-08-09] MEDS: oxyCODONE 5 MG Tablet PO ×2 (06:20→13:42)
[2022-08-09] MEDS: Levothyroxine 100 MCG Tablet 200 MCG PO (06:21)
[2022-08-09] MEDS: Clindamycin 900 MG/50 ML BAG 75 MG IV (06:21)
[2022-08-09] MEDS: Acetaminophen 500 MG Tablet 1000 MG PO ×3 (06:21→22:20)
[2022-08-09 06:27] LABS: Absolute Lymphocyte Count 0.67 X10^3/uL (0.83-4.51); Basophil# 0.12 X10^3/uL; Basophil% 0.8 % (0-1); Eosinophil# 0.62 X10^3/uL; Eosinophils% 3.9 % (0-5); Hematocrit 21.4 % (40-54); Hemoglobin 7.2 g/dL (13.0-16.5); Lymphocyte # 0.67 X10^3/ul (0.83-4.51); Lymphocyte % 4.2 % (19-41); Mean Corp Hgb Conc 33.6 g/dL (32-36); Mean Corpuscular Hgb 31.7 pg (27.0-32.0); Mean Corpuscular Volume 94.3 fL (80-94); Mean Platelet Vol. 10.1 fl (6.2-12.0); Monocyte# 1.15 X10^3/uL; Monocyte% 7.3 % (0-10); NRBC Flagged by Analyzer 0 % (0-5); Neutrophil # 13.01 X10^3/uL (2.7-7.7); Neutrophil % 82.3 % (47-70); Platelet Count 248 K/mm3 (150-450); RBC Distribution Width CV 14.1 % (11.6-14.6); RBC Distribution Width SD 47.5 fl (35.1-43.9); Red Blood Count 2.27 M/mm3 (4.6-6.2); White Blood Count 15.8 K/mm3 (4.4-11.0)
[2022-08-09 06:48] LABS: Vancomycin, Random Level 16.6 ug/mL (0.0-15.0)
[2022-08-09 06:55] LABS: Anion Gap 12 (5-15); BUN 64 mg/dL (7-18); BUN/Creat Ratio 11.9 RATIO (10-20); Calcium,Total 8.9 mg/dL (8.5-10.1); Chloride 94 mmol/L (98-107); Creatinine, Serum 5.38 mg/dL (0.70-1.30); EST Glomerular Filtration Rate 12 mL/min (>60); Est Glom Filt Rate - Afr Amer 14 mL/min (>60); Estimated Creatinine Clearance 15.75 ml/min; Glucose 111 mg/dL (74-106); Potassium 4.2 mmol/L (3.5-5.1); Sodium Level 132 mmol/L (136-145)
--- NOTE | 2022-08-09 06:58 | PCM.RX.CS ---
Consult Pharmacy has been consulted to manage selected antiobiotic: Vancomycin Type of Consult: Follow-up Prior Doses of Antibiotics Received/Current Regimen: Medications Discontinued Medications Vancomycin HCl 1,500 mg/ (Sodium Chloride) 530 mls @ 250 mls/hr IV X1 ONE Stop: 08/05/22 16:26 Last Admin: 08/05/22 18:10 Dose: Infused Vancomycin HCl 750 mg/ Sodium (Chloride) 265 mls @ 250 mls/hr IV X1 ONE Stop: 08/06/22 19:03 Last Admin: 08/06/22 19:45 Dose: Infused Labs: Sodium 132 mmol/L (136-145) L 08/09/22 06:05 Potassium 4.2 mmol/L (3.5-5.1) 08/09/22 06:05 Chloride 94 mmol/L (98-107) L 08/09/22 06:05 Carbon Dioxide 26.0 mmol/L (21.0-32.0) 08/09/22 06:05 Anion Gap 12 (5-15) 08/09/22 06:05 BUN 64 mg/dL (7-18) H 08/09/22 06:05 Creatinine 5.38 mg/dL (0.70-1.30) H 08/09/22 06:05 Est GFR (MDRD) Af Amer 14 mL/min (>60) L 08/09/22 06:05 Est GFR (MDRD) Non-Af 12 mL/min (>60) L 08/09/22 06:05 BUN/Creatinine Ratio 11.9 RATIO (10-20) 08/09/22 06:05 Glucose 111 mg/dL (74-106) H 08/09/22 06:05 Random Vancomycin 16.6 ug/mL (0.0-15.0) H 08/09/22 06:05 Microbiology: Microbiology 08/05/22 18:53 Wound - Left Foot Gram Stain - Final 08/05/22 18:53 Wound - Left Foot Wound Culture - Final Enterococcus faecalis 08/05/22 18:53 Wound - Left Foot Anaerobic Culture - Preliminary 08/05/22 18:53 Wound - Left Foot Gram Stain - Final 08/05/22 18:53 Wound - Left Foot Wound Culture - Final Enterococcus faecalis 08/05/22 18:53 Wound - Left Foot Anaerobic Culture - Preliminary 08/05/22 18:53 Wound - Left Foot Gram Stain - Final 08/05/22 18:53 Wound - Left Foot Wound Culture - Final Enterococcus faecalis 08/05/22 18:53 Wound - Left Foot Anaerobic Culture - Preliminary 08/05/22 Unknown Blood Culture (Wb) - Right Hand Blood Culture - Preliminary GPC Poss Enterococcus sp 08/05/22 14:30 Blood Culture (Wb) - Right Hand Blood Culture - Preliminary No growth in 48 hours. 08/05/22 14:35 Wound - Toe Gram Stain - Final 08/05/22 14:35 Wound - Toe Wound Culture - Final Enterococcus faecalis Goal Trough: 15-20 mcg/mL Pharmacy Plan for Drug Dosing: Vancomycin 500mg IV x1 after dialysis today based on pre-dialysis level per policy with random level again prior to next session. Pharmacy Service will continue to monitor and adjust dosing as required. Follow-Up Labs: Trough Vancomycin - 08/11 @ 0600 Random
--- NOTE | 2022-08-09 08:00 | PCM.PROGNOTE ---
Subjective Subjective No changes overnight Objective Data Objective Data Vital Signs: Vital Signs Temp Pulse Resp BP Pulse Ox O2 Del Method O2 Flow Rate 97.5 F L 62 18 111/40 L 98 Room Air 2 08/09/22 06:17 08/09/22 06:17 08/09/22 06:17 08/09/22 06:17 08/09/22 06:17 08/09/22 06:17 08/05/22 22:16 Oxygen Flow Rate (L/min) 2 Oxygen Delivery Method Room Air Weight: 95.1 kg Body Mass Index (BMI) 29.2 Intake & Output: Intake and Output for Last 24 Hours 08/07/22 08/08/22 08/09/22 23:59 23:59 23:59 Intake Total 870.25 / 870.25 1515.25 / 1515.25 100 / 100 Output Total 0 / 0 500 / 500 Balance 870.25 / 870.25 1015.25 / 1015.25 100 / 100 Lab / Micro Data Result Diagrams: 08/09/22 06:05 08/09/22 06:05 Labs: Laboratory Results - last 24 hr 08/09/22 06:05: Random Vancomycin 16.6 H 08/09/22 06:05: Sodium 132 L, Potassium 4.2, Chloride 94 L, Carbon Dioxide 26.0, Anion Gap 12, BUN 64 H, Creatinine 5.38 H, Estim Creat Clear Calc 15.75, Est GFR (MDRD) Af Amer 14 L, Est GFR (MDRD) Non-Af 12 L, BUN/Creatinine Ratio 11.9, Glucose 111 H, Calcium 8.9, C-React Prot Ext Range 112.00 H 08/09/22 06:05: WBC 15.8 H, RBC 2.27 L, Hgb 7.2 L, Hct 21.4 L, MCV 94.3 H, MCH 31.7, MCHC 33.6, RDW Std Deviation 47.5 H, RDW Coeff of [place] 14.1, Plt Count 248, MPV 10.1, Immature Gran % (Auto) 1.500 H, Neut % (Auto) 82.3 H, Lymph % (Auto) 4.2 L, [place] % (Auto) 7.3, Eos % (Auto) 3.9, Baso % (Auto) 0.8, Absolute Neuts (auto) 13.0 H, Absolute Lymphs (auto) 0.67 L, Nucleated RBC % 0 Micro: Microbiology 08/05/22 Unknown Blood Culture (Wb) - Right Hand Blood Culture - Preliminary Enterococcus faecalis 08/05/22 18:53 Wound - Left Foot Gram Stain - Final 08/05/22 18:53 Wound - Left Foot Wound Culture - Final Enterococcus faecalis 08/05/22 18:53 Wound - Left Foot Anaerobic Culture - Preliminary 08/05/22 18:53 Wound - Left Foot Gram Stain - Final 08/05/22 18:53 Wound - Left Foot Wound Culture - Final Enterococcus faecalis 08/05/22 18:53 Wound - Left Foot Anaerobic Culture - Preliminary 08/05/22 18:53 Wound - Left Foot Gram Stain - Final 08/05/22 18:53 Wound - Left Foot Wound Culture - Final Enterococcus faecalis 08/05/22 18:53 Wound - Left Foot Anaerobic Culture - Preliminary 08/05/22 14:30 Blood Culture (Wb) - Right Hand Blood Culture - Preliminary No growth in 48 hours. 08/05/22 14:35 Wound - Toe Gram Stain - Final 08/05/22 14:35 Wound - Toe Wound Culture - Final Enterococcus faecalis Physical Exam Narrative Neurovascular status unchanged Skin incision with healthy flap intact with intact sutures, focal ulceration following course of flexor tendons present, mild sanguinous drainage noted. No residual signs of infection at current. Some ischemic changes noted to the plantar aspect of the transmetatarsal amputation flap. Transmetatarsal amputation noted to left side. Assessment & Plan Assessment/Plan (1) Peripheral vascular disease, unspecified: PLAN: Exam performed TMA site looks healthy, will consider wound vac to plantar ulceration if no recurrent infection over the next couple of days WBC 24->17->15->15->15. Initial CRP 171->135->112 patient vitally stable ID on board; cultures so far + for enterococcus faecalis. Patient receiving IV vanc/clinda/zosyn. Nephrology on board; patient on hemodialysis. Patient NWB on left, continue this. Recommend SNF placement, patient will require daily dressing changes with packing via iodoform dressing application of 4 x 4's Kerlix and light Angel bandage. Will continue to follow daily while patient is in the hospital Will plan to follow patient weekly as an outpatient No additional imminent plan during inpatient stay. Some residual leukocytosis noted. CRP improving. Wound appears healthy. (2) Type 2 diabetes mellitus with diabetic polyneuropathy: (3) Cellulitis of left foot: (4) Diabetic infection of left foot: (5) Gas gangrene:
--- NOTE | 2022-08-09 08:13 | WOUNDNOTE ---
wound photo: left foot
--- NOTE | 2022-08-09 08:14 | WOUNDNOTE ---
wound photo: left foot
--- NOTE | 2022-08-09 09:52 | PN.HOSP_ITS ---
Reason for Visit Reason for Visit: Diagnoses Gas gangrene (08/05/22) Acute posthemorrhagic anemia (08/05/22) Type 2 diabetes mellitus with diabetic polyneuropathy (08/05/22) Type 2 diabetes mellitus with other skin complications (08/05/22) Peripheral vascular disease, unspecified (08/05/22) Gangrene, not elsewhere classified (08/05/22) Cellulitis of left lower limb (08/05/22) Local infection of the skin and subcutaneous tissue, unspecified (08/05/22) End stage renal disease (08/05/22) Bacteremia (08/05/22) Dependence on renal dialysis (08/05/22) Subjective Subjective Patient is a 57-year-old gentleman with multiple comorbidities including diabetes mellitus type 2, end-stage renal disease on dialysis who was sent in by 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 Patient underwent Partially closed amputation transmetatarsal on the left side on 08/05/2022 Objective Data Objective Data Vital Signs: Vital Signs Temp Pulse Resp BP Pulse Ox O2 Del Method O2 Flow Rate 97.5 F L 62 18 111/40 L 98 Room Air 2 08/09/22 06:17 08/09/22 06:17 08/09/22 06:17 08/09/22 06:17 08/09/22 06:17 08/09/22 08:34 08/05/22 22:16 Oxygen Flow Rate (L/min) 2 Oxygen Delivery Method Room Air Weight: 95.1 kg Body Mass Index (BMI) 29.2 Intake & Output: Intake and Output for Last 24 Hours 08/07/22 08/08/22 08/09/22 23:59 23:59 23:59 Intake Total 870.25 / 870.25 1515.25 / 1515.25 100 / 100 Output Total 0 / 0 500 / 500 Balance 870.25 / 870.25 1015.25 / 1015.25 100 / 100 Lab / Micro Data Result Diagrams: 08/09/22 06:05 08/09/22 06:05 Labs: Laboratory Results - last 24 hr 08/09/22 06:05: Random Vancomycin 16.6 H 08/09/22 06:05: Sodium 132 L, Potassium 4.2, Chloride 94 L, Carbon Dioxide 26.0, Anion Gap 12, BUN 64 H, Creatinine 5.38 H, Estim Creat Clear Calc 15.75, Est GFR (MDRD) Af Amer 14 L, Est GFR (MDRD) Non-Af 12 L, BUN/Creatinine Ratio 11.9, Glucose 111 H, Calcium 8.9, C-React Prot Ext Range 112.00 H 08/09/22 06:05: WBC 15.8 H, RBC 2.27 L, Hgb 7.2 L, Hct 21.4 L, MCV 94.3 H, MCH 31.7, MCHC 33.6, RDW Std Deviation 47.5 H, RDW Coeff of Glen 14.1, Plt Count 248, MPV 10.1, Immature Gran % (Auto) 1.500 H, Neut % (Auto) 82.3 H, Lymph % (Auto) 4.2 L, [place] % (Auto) 7.3, Eos % (Auto) 3.9, Baso % (Auto) 0.8, Absolute Neuts (auto) 13.0 H, Absolute Lymphs (auto) 0.67 L, Nucleated RBC % 0 Micro: Microbiology 08/05/22 Unknown Blood Culture (Wb) - Right Hand Blood Culture - Preliminary Enterococcus faecalis 08/05/22 18:53 Wound - Left Foot Gram Stain - Final 08/05/22 18:53 Wound - Left Foot Wound Culture - Final Enterococcus faecalis 08/05/22 18:53 Wound - Left Foot Anaerobic Culture - Preliminary 08/05/22 18:53 Wound - Left Foot Gram Stain - Final 08/05/22 18:53 Wound - Left Foot Wound Culture - Final Enterococcus faecalis 08/05/22 18:53 Wound - Left Foot Anaerobic Culture - Preliminary 08/05/22 18:53 Wound - Left Foot Gram Stain - Final 08/05/22 18:53 Wound - Left Foot Wound Culture - Final Enterococcus faecalis 08/05/22 18:53 Wound - Left Foot Anaerobic Culture - Preliminary 08/05/22 14:30 Blood Culture (Wb) - Right Hand Blood Culture - Preliminary No growth in 48 hours. 08/05/22 14:35 Wound - Toe Gram Stain - Final 08/05/22 14:35 Wound - Toe Wound Culture - Final Enterococcus faecalis Physical Exam Narrative GENERAL: cooperative HEENT: Atraumatic; normocephalic EYES; Anicteric, Normal Conjunctiva NECK; supple, normal thyroid, RESPIRATORY: Diminished to auscultation CARDIOVASCULAR: Regular S1 S2, GI: soft, normoactive bowel sounds, : No Renal angle tenderness; EXTREMITIES: Left foot in surgical dressing MUSCULOSKELETAL: no muscle wasting NEURO: Awake; no lateralizing signs. 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 Patient underwent Partially closed amputation transmetatarsal on the left side on 08/05/2022 1. Diabetic foot infection with Enterococcus ? Patient presented with diabetic foot infection involving the left foot imaging studies demonstrated erosive changes in the in the remaining paroxysmal phalanx of the great toe and in the distal aspect of the first metatarsal suspicious of osteomyelitis as well as significant soft tissue and subcutaneous emphysema in the volar tissues.? Additional suspicion for osteomyelitis in the proximal medial aspect of the proximal second phalanx.. Patient underwent artially closed amputation transmetatarsal on the left side on 08/05/2022. Patient remains on broad-spectrum antibiotic therapy with clindamycin, Zosyn and vancomycin with consultation placed to ID 2. Diabetes mellitus type 2 with complications including diabetic polyneuropathy and diabetic nephropathy ? Did continue patient home regimen in addition to Accu-Cheks ACHS and sliding scale coverage 3. End-stage renal disease ? On hemodialysis on Wednesdays and Fridays consult placed to patient's nephrology for dialysis orders 4. Enterococcal bacteremia ? Source thought to be from patient for infection patient remains on broad- spectrum antibiotic therapy with culture sent 5. Anemia - Secondary to chronic disorder monitoring H&H and transfuse if patient becomes symptomatic or hemoglobin falls below 7 6. Paroxysmal A-fib ? Rate controlled currently being monitored continuously on telemetry 7. Hypothyroidism - Patient is on levothyroxine home dose continued 8. Hypertension - Blood pressure controlled, home medications continued with dose adjustment as needed 9. GERD ? On PPI 10. Chronic right shoulder pain ? Pain meds as needed patient is followed by orthopedic surgery 11. Peripheral arterial disease ? Patient is on antiplatelet therapy with aspirin 12. DVT prophylaxis ? Systemic antibiotic coagulation held in view of patient relatively low hemoglobin levels Time spent in the patient's overall evaluation,decision-making process, review of diagnostic data, adjustment of management, discussion with other providers, nursing nursing and ancillary staff involved in patient's care documentation, 40 Minutes Charges/Coding Visit Charges Inpatient E&M: 64190 Subs Hosp L2
--- NOTE | 2022-08-09 11:46 | NURSING ---
dexcom reading 95
[2022-08-09 11:50] VITALS: BP 115/33; PULSE 66; RESP 18; TEMP 36.6; O2SAT 100
--- NOTE | 2022-08-09 12:48 | CHAPLAIN ---
Type of Pastoral Visit _x__ Initial Visit ___ Follow-up Visit ___ On-call Visit ___ General Patient Visit ___ Spiritual Assessment ___ Family Conference ___ Bereavement ___ Rapid Response ___ Code Blue ___ Other (describe below) Pastoral Care Referral From _x__ Patient ___ Family ___ Nurse ___ Physician ___ Relay Dispatcher ___ Ski Topper ___ Other (describe below) Sacrament/Intervention _x__ Active listening ___ Anointing ___ Baptist ___ Bereavement ___ Communion _x__ [place] exploration ___ _x__ Life review _x__ Prayer ___ Reconciliation ___ Sacrament of Sick _x__ Supportive presence ___ Wedding ___ Other (describe below) Pastoral Comments patient was very welcoming and talkative as he explained his background, confucianist thoughts and perspectives, life review, and current needs; pt sought time to be expressive and explain his situation; pt identifies as a Jew but not partaking of a [place] community; pt would welcome visits in the future as possible
--- NOTE | 2022-08-09 13:12 | PCM.PN.ID ---
Physical Exam Narrative Feeling better, no pain in foot, no fever Const alert and no apparent distress Resp normal air movement and clear to auscultation bilaterally Cardio regular rate and regular rhythm GI soft to palpation, non-tender and non-distended Skin Skin Narrative: foot wrapped, reviewed photo ID ID: Route of nutrition/ use of supplements: [] Nutritional Intake: [] IV Site: [] Cohen Catheter: [] Assessment & Plan Assessment/Plan (1) Gangrene of left foot: PLAN: Now s/p L TMA 08/05/[address] Lyn. Surg cxs so far with enterococcus. 1 of 2 bcx with enterococcus. Will narrow abx to vanc/unasyn. Will follow (2) ESRD on dialysis: (3) Type 2 diabetes mellitus with diabetic polyneuropathy: (4) Peripheral vascular disease, unspecified:
[2022-08-09 13:24] VITALS: BP 108/54; PULSE 70; RESP 16; TEMP 36.9; O2SAT 99
[2022-08-09] MEDS: Juven (unflavored) Packet 1 PACKET PO ×2 (13:26→17:17)
[2022-08-09] MEDS: Lidocaine 5% Patch 1 PATCH TOPICAL (13:26)
[2022-08-09] MEDS: Aspirin E.C. 81 MG Tablet PO (13:27)
[2022-08-09] MEDS: Bumetanide 2 MG Tablet PO ×2 (13:27→17:23)
[2022-08-09] MEDS: Calcitriol 0.25 MCG Capsule 1.25 MCG PO (13:29)
[2022-08-09] MEDS: Pantoprazole Sodium 40 MG Tablet PO (13:29)
[2022-08-09] MEDS: Folic Acid/Vitamin B Comp W-C 1 Capsule 1 CAP PO (13:29)
[2022-08-09] MEDS: LINAGLIPTIN 5 MG TABLET PO (13:30)
[2022-08-09] MEDS: Losartan Potassium 100 MG Tablet PO (13:47)
[2022-08-09] MEDS: amLODIPine 10 MG Tablet PO (13:47)
[2022-08-09] MEDS: Vancomycin IV 500 MG/100 ML BAG 100 MG IV (14:59)
[2022-08-09] MEDS: Ascorbic Acid 500 MG Tablet PO (14:59)
--- NOTE | 2022-08-09 15:59 | NURSING ---
dexcom reading 120
--- NOTE | 2022-08-09 17:20 | CASEMGMT ---
Social Work SW met with pt to discuss discharge plan. Pt requesting SNF that has onsite dialysis. SW provided pt with list. Pt then stating this is not as important as good nursing care. SW directed pt's attention to Medicare star ratings and explained. Pt to review lists provided and talk to family tonight regarding selection of SNF and will provide SW with choices in the morning. Pt requesting to complete HCPOA and wants to name his brother. Pt does not have his brothers contact information. SW encouraged pt to get brothers address tonight and SW will assist in completing documents tomorrow. BRAD Carmen
[2022-08-09] MEDS: HYDROmorphone 0.5 MG/0.5 ML SYRINGE IV ×2 (17:22→20:28)
[2022-08-09 17:23] VITALS: BP 117/46; PULSE 76; RESP 16; TEMP 37.1; O2SAT 98
[2022-08-09 22:17] VITALS: BP 118/46; PULSE 76; RESP 16; TEMP 36.8; O2SAT 99
[2022-08-09] MEDS: MELATONIN 3 MG TABLET 6 MG PO (22:20)
[2022-08-09] MEDS: Insulin NPH Human 100 UNITS/ML PEN SC (22:21)
[2022-08-10] MEDS: oxyCODONE 5 MG Tablet PO ×4 (01:17→17:12)
[2022-08-10 03:50] VITALS: BP 112/35; PULSE 70; RESP 16; TEMP 36.7; O2SAT 96
[2022-08-10 05:44] VITALS: BMI 29.2
[2022-08-10] MEDS: Levothyroxine 100 MCG Tablet 200 MCG PO (06:25)
[2022-08-10] MEDS: Acetaminophen 500 MG Tablet 1000 MG PO ×3 (06:26→21:08)
[2022-08-10 07:06] LABS: Absolute Lymphocyte Count 0.75 X10^3/uL (0.83-4.51); Absolute Neutrophil Count 12.6 X10^3/uL (2.0-7.7); Basophil% 0.6 % (0-1); Eosinophil# 0.47 X10^3/uL; Hematocrit 23.4 % (40-54); Hemoglobin 7.5 g/dL (13.0-16.5); Lymphocyte # 0.75 X10^3/ul (0.83-4.51); Lymphocyte % 4.8 % (19-41); Mean Corp Hgb Conc 32.1 g/dL (32-36); Mean Corpuscular Volume 96.7 fL (80-94); Mean Platelet Vol. 10.1 fl (6.2-12.0); Monocyte% 8.4 % (0-10); NRBC Flagged by Analyzer 0 % (0-5); Neutrophil # 12.62 X10^3/uL (2.7-7.7); Neutrophil % 81.6 % (47-70); Platelet Count 282 K/mm3 (150-450); RBC Distribution Width CV 14.3 % (11.6-14.6); RBC Distribution Width SD 49.1 fl (35.1-43.9); Red Blood Count 2.42 M/mm3 (4.6-6.2); White Blood Count 15.5 K/mm3 (4.4-11.0)
[2022-08-10 07:34] LABS: Anion Gap 10 (5-15); BUN 41 mg/dL (7-18); BUN/Creat Ratio 11.6 RATIO (10-20); Calcium,Total 9.3 mg/dL (8.5-10.1); Chloride 99 mmol/L (98-107); Creatinine, Serum 3.53 mg/dL (0.70-1.30); EST Glomerular Filtration Rate 19 mL/min (>60); Est Glom Filt Rate - Afr Amer 23 mL/min (>60); Glucose 130 mg/dL (74-106); Magnesium 2.1 mg/dL (1.6-2.6); Potassium 3.9 mmol/L (3.5-5.1); Sodium Level 136 mmol/L (136-145)
--- NOTE | 2022-08-10 07:46 | PN.HOSP_ITS ---
Reason for Visit Reason for Visit: Diagnoses Gas gangrene (08/05/22) Acute posthemorrhagic anemia (08/05/22) Type 2 diabetes mellitus with diabetic polyneuropathy (08/05/22) Type 2 diabetes mellitus with other skin complications (08/05/22) Peripheral vascular disease, unspecified (08/05/22) Gangrene, not elsewhere classified (08/05/22) Cellulitis of left lower limb (08/05/22) Local infection of the skin and subcutaneous tissue, unspecified (08/05/22) Other acute osteomyelitis, left ankle and foot (08/05/22) End stage renal disease (08/05/22) Bacteremia (08/05/22) Dependence on renal dialysis (08/05/22) Subjective Subjective Patient was seen in consultation by Dr. Frank with ID recommended a combination of Unasyn and vancomycin. [facility]ing [facility] to [facility] facility. Objective Data Objective Data Vital Signs: Vital Signs Temp Pulse Resp BP Pulse Ox O2 Del Method O2 Flow Rate 98.1 F 70 16 112/35 L 96 Room Air 2 08/10/22 03:50 08/10/22 03:50 08/10/22 03:50 08/10/22 03:50 08/10/22 03:50 08/10/22 03:50 08/05/22 22:16 Oxygen Flow Rate (L/min) 2 Oxygen Delivery Method Room Air Weight: 95.1 kg Body Mass Index (BMI) 29.2 Intake & Output: Intake and Output for Last 24 Hours 08/08/22 08/09/22 08/10/22 23:59 23:59 23:59 Intake Total 1515.25 / 1515.25 1109.5 / 1109.5 Output Total 500 / 500 Balance 1015.25 / 1015.25 1109.5 / 1109.5 Lab / Micro Data Result Diagrams: 08/10/22 06:55 08/10/22 06:55 Labs: Laboratory Results - last 24 hr 08/10/22 06:55: WBC 15.5 H, RBC 2.42 L, Hgb 7.5 L, Hct 23.4 L, MCV 96.7 H, MCH 31.0, MCHC 32.1, RDW Std Deviation 49.1 H, RDW Coeff of [place] 14.3, Plt Count 282, MPV 10.1, Immature Gran % (Auto) 1.600 H, Neut % (Auto) 81.6 H, Lymph % (Auto) 4.8 L, [place] % (Auto) 8.4, Eos % (Auto) 3.0, Baso % (Auto) 0.6, Absolute Neuts (auto) 12.6 H, Absolute Lymphs (auto) 0.75 L, Nucleated RBC % 0 08/10/22 06:55: Sodium 136, Potassium 3.9, Chloride 99, Carbon Dioxide 27.0, Anion Gap 10, BUN 41 H, Creatinine 3.53 H, Estim Creat Clear Calc 24.00, Est GFR (MDRD) Af Amer 23 L, Est GFR (MDRD) Non-Af 19 L, BUN/Creatinine Ratio 11.6, Glucose 130 H, Calcium 9.3, Magnesium 2.1 Micro: Microbiology 08/08/22 10:50 Blood Culture (Wb) - Anticubital Right Blood Culture - Preliminary No growth in 48 hours. 08/08/22 10:30 Blood Culture (Wb) - Right Forearm Blood Culture - Prelimin jeramie No growth in 48 hours. 08/05/22 Unknown Blood Culture (Wb) - Right Hand Blood Culture - Preliminary Enterococcus faecalis 08/05/22 18:53 Wound - Left Foot Gram Stain - Final 08/05/22 18:53 Wound - Left Foot Wound Culture - Final Enterococcus faecalis 08/05/22 18:53 Wound - Left Foot Anaerobic Culture - Preliminary 08/05/22 18:53 Wound - Left Foot Gram Stain - Final 08/05/22 18:53 Wound - Left Foot Wound Culture - Final Enterococcus faecalis 08/05/22 18:53 Wound - Left Foot Anaerobic Culture - Preliminary 08/05/22 18:53 Wound - Left Foot Gram Stain - Final 08/05/22 18:53 Wound - Left Foot Wound Culture - Final Enterococcus faecalis 08/05/22 18:53 Wound - Left Foot Anaerobic Culture - Preliminary 08/05/22 14:30 Blood Culture (Wb) - Right Hand Blood Culture - Preliminary No growth in 48 hours. 08/05/22 14:35 Wound - Toe Gram Stain - Final 08/05/22 14:35 Wound - Toe Wound Culture - Final Enterococcus faecalis Physical Exam Narrative GENERAL: cooperative HEENT: Atraumatic; normocephalic EYES; Anicteric, Normal Conjunctiva NECK; supple, normal thyroid, RESPIRATORY: Diminished to auscultation CARDIOVASCULAR: Regular S1 S2, GI: soft, normoactive bowel sounds, : No Renal angle tenderness; EXTREMITIES: Left foot in surgical dressing MUSCULOSKELETAL: no muscle wasting NEURO: Awake; no lateralizing signs. 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 Patient underwent Partially closed amputation transmetatarsal on the left side on 08/05/2022 1. Diabetic foot infection with Enterococcus ? Patient presented with diabetic foot infection involving the left foot imaging studies demonstrated erosive changes in the in the remaining paroxysmal phalanx of the great toe and in the distal aspect of the first metatarsal suspicious of osteomyelitis as well as significant soft tissue and subcutaneous emphysema in the volar tissues.? Additional suspicion for osteomyelitis in the proximal medial aspect of the proximal second phalanx.. Patient underwent artially closed amputation transmetatarsal on the left side on 08/05/2022. Patient remains on broad-spectrum antibiotic therapy with clindamycin, Zosyn and vancomycin with consultation placed to ID ? 08/10/2022; patient antibiotic therapy adjusted by Dr. Frank with infectious disease 2. Diabetes mellitus type 2 with complications including diabetic polyneuropathy and diabetic nephropathy ? Did continue patient home regimen in addition to Accu-Cheks ACHS and sliding scale coverage 3. End-stage renal disease ? On hemodialysis on Wednesdays and Fridays consult placed to patient's nephrology for dialysis orders 4. Enterococcal bacteremia ? Source thought to be from patient for infection patient remains on broad- spectrum antibiotic therapy with culture sent 5. Anemia - Secondary to chronic disorder monitoring H&H and transfuse if patient becomes symptomatic or hemoglobin falls below 7 6. Paroxysmal A-fib ? Rate controlled currently being monitored continuously on telemetry 7. Hypothyroidism - Patient is on levothyroxine home dose continued 8. Hypertension - Blood pressure controlled, home medications continued with dose adjustment as needed 9. GERD ? On PPI 10. Chronic right shoulder pain ? Pain meds as needed patient is followed by orthopedic surgery 11. Peripheral arterial disease ? Patient is on antiplatelet therapy with aspirin 12. DVT prophylaxis ? Systemic antibiotic coagulation held in view of patient relatively low hemoglobin levels 13. Physical deconditioning - Requested for PT OT eval and social insurance administrator to assist with discharge planning Time spent in the patient's overall evaluation,decision-making process, review of diagnostic data, adjustment of management, discussion with other providers, nursing nursing and ancillary staff involved in patient's care documentation, 40 Minutes Charges/Coding Visit Charges Inpatient E&M: 56086 Subs Hosp L2
[2022-08-10] MEDS: Lidocaine 5% Patch 1 PATCH TOPICAL (08:26)
[2022-08-10] MEDS: Juven (unflavored) Packet 1 PACKET PO ×2 (08:28→16:59)
[2022-08-10 09:52] VITALS: BP 122/46; PULSE 73; RESP 14; TEMP 36.6; O2SAT 97
--- NOTE | 2022-08-10 09:57 | PCM.PN.ID ---
Physical Exam Narrative Feeling ok, foot sore. No fever. Const alert and no apparent distress Resp normal air movement and clear to auscultation bilaterally Cardio regular rate and regular rhythm GI soft to palpation, non-tender and non-distended Extremity General Extremity: Negative for edema Skin Skin Narrative: foot wrapped ID ID: Route of nutrition/ use of supplements: [] Nutritional Intake: [] IV Site: [] Cohen Catheter: [] Assessment & Plan Assessment/Plan (1) Gangrene of left foot: PLAN: Now s/p L TMA 08/05/[address] Lyn. Surg cxs so far with enterococcus, including (+) post-lavage cx. 1 of 2 bcx with enterococcus. Cont vanc/unasyn. At discharge, plan will be for 6 weeks total iv vanc dosed with HD, stop date 09/16/22 with weekly labs. Will follow (2) ESRD on dialysis: (3) Type 2 diabetes mellitus with diabetic polyneuropathy: (4) Peripheral vascular disease, unspecified:
[2022-08-10] MEDS: Folic Acid/Vitamin B Comp W-C 1 Capsule 1 CAP PO (09:59)
[2022-08-10] MEDS: Aspirin E.C. 81 MG Tablet PO (09:59)
[2022-08-10] MEDS: LINAGLIPTIN 5 MG TABLET PO (09:59)
[2022-08-10] MEDS: Pantoprazole Sodium 40 MG Tablet PO (09:59)
[2022-08-10] MEDS: Losartan Potassium 100 MG Tablet PO (09:59)
[2022-08-10] MEDS: amLODIPine 10 MG Tablet PO (09:59)
[2022-08-10] MEDS: Bumetanide 2 MG Tablet PO ×2 (09:59→16:58)
[2022-08-10] MEDS: Ascorbic Acid 500 MG Tablet PO (10:00)
[2022-08-10] MEDS: HYDROmorphone 0.5 MG/0.5 ML SYRINGE IV (10:04)
--- NOTE | 2022-08-10 10:26 | PCM.PN.REN ---
Subjective Subjective HD yesterday with 2.8L removed. left foot wrapped s/p TMA, right shoulder pain, stiffness s/p fracture. afebrile, leukocytosis persists. Await ECF placement. Pt does not want to go back to [facility] Objective Data Objective Data Vital Signs: Vital Signs Temp Pulse Resp BP Pulse Ox O2 Del Method O2 Flow Rate 97.8 F 73 14 122/46 H 97 Room Air 2 08/10/22 09:52 08/10/22 09:52 08/10/22 09:52 08/10/22 09:52 08/10/22 09:52 08/10/22 09:52 08/05/22 22:16 Oxygen Flow Rate (L/min) 2 Oxygen Delivery Method Room Air Weight: 95.1 kg Body Mass Index (BMI) 29.2 Intake & Output: Intake and Output for Last 24 Hours 08/08/22 08/09/22 08/10/22 23:59 23:59 23:59 Intake Total 1515.25 / 1515.25 1109.5 / 1109.5 Output Total 500 / 500 Balance 1015.25 / 1015.25 1109.5 / 1109.5 Lab / Micro Data Result Diagrams: 08/10/22 06:55 08/10/22 06:55 Labs: Laboratory Results - last 24 hr 08/10/22 06:55: WBC 15.5 H, RBC 2.42 L, Hgb 7.5 L, Hct 23.4 L, MCV 96.7 H, MCH 31.0, MCHC 32.1, RDW Std Deviation 49.1 H, RDW Coeff of [place] 14.3, Plt Count 282, MPV 10.1, Immature Gran % (Auto) 1.600 H, Neut % (Auto) 81.6 H, Lymph % (Auto) 4.8 L, [place] % (Auto) 8.4, Eos % (Auto) 3.0, Baso % (Auto) 0.6, Absolute Neuts (auto) 12.6 H, Absolute Lymphs (auto) 0.75 L, Nucleated RBC % 0 08/10/22 06:55: Sodium 136, Potassium 3.9, Chloride 99, Carbon Dioxide 27.0, Anion Gap 10, BUN 41 H, Creatinine 3.53 H, Estim Creat Clear Calc 24.00, Est GFR (MDRD) Af Amer 23 L, Est GFR (MDRD) Non-Af 19 L, BUN/Creatinine Ratio 11.6, Glucose 130 H, Calcium 9.3, Magnesium 2.1 Micro: Microbiology 08/05/22 18:53 Wound - Left Foot Gram Stain - Final 08/05/22 18:53 Wound - Left Foot Wound Culture - Final Enterococcus faecalis 08/05/22 18:53 Wound - Left Foot Anaerobic Culture - Preliminary Gram negative johnathan Anaerobic cocci 08/05/22 18:53 Wound - Left Foot Gram Stain - Final 08/05/22 18:53 Wound - Left Foot Wound Culture - Final Enterococcus faecalis 08/05/22 18:53 Wound - Left Foot Anaerobic Culture - Preliminary Gram negative johnathan Anaerobic cocci 08/05/22 18:53 Wound - Left Foot Gram Stain - Final 08/05/22 18:53 Wound - Left Foot Wound Culture - Final Enterococcus faecalis 08/05/22 18:53 Wound - Left Foot Anaerobic Culture - Preliminary Gram negative johnathan Anaerobic cocci 08/05/22 Unknown Blood Culture (Wb) - Right Hand Blood Culture - Preliminary Enterococcus faecalis 08/08/22 10:50 Blood Culture (Wb) - Anticubital Right Blood Culture - Preliminary No growth in 48 hours. 08/08/22 10:30 Blood Culture (Wb) - Right Forearm Blood Culture - Preliminary No growth in 48 hours. 08/05/22 14:30 Blood Culture (Wb) - Right Hand Blood Culture - Preliminary No growth in 48 hours. 08/05/22 14:35 Wound - Toe Gram Stain - Final 08/05/22 14:35 Wound - Toe Wound Culture - Final Enterococcus faecalis Physical Exam Const alert and oriented x3 Resp clear to auscultation bilaterally Cardio regular rate GI non-tender and non-distended Auscultation: normoactive bowel sounds Extremity Extremity Narrative: left foot wrapped, right arm in sling General Extremity: AV fistula Psych cooperative Assessment & Plan Assessment/Plan (1) ESRD on dialysis: PLAN: dialysis yesterday with 2.8L fluid removed. Dialysis next on Tuesday. (2) Type 2 diabetes mellitus with diabetic polyneuropathy: (3) Gas gangrene: PLAN: iv antibx, leukocytosis persists (4) Diabetic infection of left foot: PLAN: s/p toe amputation x4 (5) Cellulitis of left foot: PLAN: iv antibx per ID (6) Acute blood loss anemia: PLAN: hgb 7.5g. s/p blood transfusion (7) Bacteremia: PLAN: iv antibx
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
--- NOTE | 2022-08-10 12:59 | CASEMGMT ---
Social Work Telephone call received from patient brother, Drew. Drew reports to have looked over list and then looked up nursing facilities in the area and noted [facility]. Drew states that if possible for patient to go to [facility] that this would be first choice. This social service director noting that patient is on dialysis, this social service director communicating to Drew that [facility] does not accept patient's on dialysis and Drew will need to pick another facility, Drew voiced understanding and plans to look over list of longterm facilities further later today. This social service director provided Drew with direct number for U social service director for Drew to be able to call back with facility choices. Abdi LEIVA, KENA-S
--- NOTE | 2022-08-10 14:30 | CASEMGMT ---
Social Work This social service manager following up with patient in room to complete advanced directives. Patient wishes to complete Health Care Power of Stopperer Assembler. This social service manager counseled patient in advanced care planning. This social service manager assisting patient in completing Health Care Power of Stopperer Assembler document. Patient declining to complete Living Will document. This social service manager provided patient with original Health Care Power of Stopperer Assembler document and placed copy on patient chart. Patient identified patient brotherDrew as first HCPOA and Leatha Villa, patient sister as second HCPOA. This social service manager inquired about patient status of making decision on [facility] facility. Patient states to still be working on this. Patient states that patient brotherDrew is also looking into facility and researching things. Patient states main priority is getting into a facility that will take good care of patient wound. Patient states long-term goal is to return to living independently in the community. This social service manager encouraging patient to pick facility as this will enable patient to transition out of the hospital sooner and to start working towards recovery, patient voiced understanding and plans to continue to look into options. PLAN: YISSEL LEIVA, REGINO
[2022-08-10] MEDS: Menthol/Lanolin/Calamine/Znox 113 GM Tube 1 APPLIC TOPICAL ×2 (16:56→21:04)
[2022-08-10 17:01] VITALS: BP 136/56; PULSE 75; RESP 16; TEMP 36.6; O2SAT 100
[2022-08-10] MEDS: Insulin NPH Human 100 UNITS/ML PEN SC (21:05)
[2022-08-10] MEDS: Insulin Lispro 100 UNIT/ML INSULN.PEN SC (21:06)
[2022-08-10] MEDS: MELATONIN 3 MG TABLET 6 MG PO (21:08)
[2022-08-10 23:00] VITALS: BP 122/59; PULSE 74; RESP 18; TEMP 36.5; O2SAT 100
[2022-08-11 05:00] VITALS: BP 121/58; PULSE 69; RESP 18; TEMP 36.3; O2SAT 95
[2022-08-11] MEDS: Levothyroxine 100 MCG Tablet 200 MCG PO (05:26)
[2022-08-11] MEDS: Menthol/Lanolin/Calamine/Znox 113 GM Tube 1 APPLIC TOPICAL ×2 (05:26→22:13)
[2022-08-11] MEDS: Acetaminophen 500 MG Tablet 1000 MG PO ×3 (05:26→22:12)
[2022-08-11 06:00] VITALS: BMI 28.6
[2022-08-11 06:00] LABS: Absolute Neutrophil Count 12.8 X10^3/uL (2.0-7.7); Basophil# 0.11 X10^3/uL; Basophil% 0.7 % (0-1); Eosinophil# 0.55 X10^3/uL; Eosinophils% 3.5 % (0-5); Hematocrit 22.7 % (40-54); Hemoglobin 7.7 g/dL (13.0-16.5); Lymphocyte % 4.4 % (19-41); Mean Corp Hgb Conc 33.9 g/dL (32-36); Mean Corpuscular Hgb 32.4 pg (27.0-32.0); Mean Corpuscular Volume 95.4 fL (80-94); Mean Platelet Vol. 10.1 fl (6.2-12.0); Monocyte# 1.31 X10^3/uL; Monocyte% 8.3 % (0-10); NRBC Flagged by Analyzer 0 % (0-5); Neutrophil # 12.84 X10^3/uL (2.7-7.7); Neutrophil % 81.1 % (47-70); Platelet Count 272 K/mm3 (150-450); RBC Distribution Width CV 14.6 % (11.6-14.6); RBC Distribution Width SD 49.1 fl (35.1-43.9); Red Blood Count 2.38 M/mm3 (4.6-6.2); White Blood Count 15.8 K/mm3 (4.4-11.0)
[2022-08-11 06:21] LABS: Vancomycin, Random Level 16.6 ug/mL (0.0-15.0)
[2022-08-11 06:22] LABS: Anion Gap 10 (5-15); BUN 59 mg/dL (7-18); BUN/Creat Ratio 13.1 RATIO (10-20); Calcium,Total 9.4 mg/dL (8.5-10.1); Chloride 96 mmol/L (98-107); Creatinine, Serum 4.49 mg/dL (0.70-1.30); EST Glomerular Filtration Rate 14 mL/min (>60); Est Glom Filt Rate - Afr Amer 17 mL/min (>60); Estimated Creatinine Clearance 18.87 ml/min; Glucose 158 mg/dL (74-106); Potassium 4.2 mmol/L (3.5-5.1); Sodium Level 133 mmol/L (136-145)
--- NOTE | 2022-08-11 08:06 | PN.HOSP_ITS ---
Reason for Visit Reason for Visit: Diagnoses Gas gangrene (08/05/22) Acute posthemorrhagic anemia (08/05/22) Type 2 diabetes mellitus with diabetic polyneuropathy (08/05/22) Type 2 diabetes mellitus with other skin complications (08/05/22) Peripheral vascular disease, unspecified (08/05/22) Gangrene, not elsewhere classified (08/05/22) Cellulitis of left lower limb (08/05/22) Local infection of the skin and subcutaneous tissue, unspecified (08/05/22) Other acute osteomyelitis, left ankle and foot (08/05/22) End stage renal disease (08/05/22) Bacteremia (08/05/22) Dependence on renal dialysis (08/05/22) Subjective Subjective Seen being dialyzed. Awaiting placement in a fdc facility Objective Data Objective Data Vital Signs: Vital Signs Temp Pulse Resp BP Pulse Ox O2 Del Method O2 Flow Rate 97.3 F L 69 18 121/58 H 95 Room Air 2 08/11/22 05:00 08/11/22 05:00 08/11/22 05:00 08/11/22 05:00 08/11/22 05:00 08/11/22 05:00 08/05/22 22:16 Oxygen Flow Rate (L/min) 2 Oxygen Delivery Method Room Air Weight: 93.1 kg Body Mass Index (BMI) 28.6 Intake & Output: Intake and Output for Last 24 Hours 08/09/22 08/10/22 08/11/22 23:59 23:59 23:59 Intake Total 1109.5 / 1109.5 1367.67 / 1367.67 250 / 250 Balance 1109.5 / 1109.5 1367.67 / 1367.67 250 / 250 Lab / Micro Data Result Diagrams: 08/11/22 05:35 08/11/22 05:35 Labs: Laboratory Results - last 24 hr 08/11/22 05:35: Random Vancomycin 16.6 H 08/11/22 05:35: WBC 15.8 H, RBC 2.38 L, Hgb 7.7 L, Hct 22.7 L, MCV 95.4 H, MCH 32.4 H, MCHC 33.9 D, RDW Std Deviation 49.1 H, RDW Coeff of Glen 14.6, Plt Count 272, MPV 10.1, Immature Gran % (Auto) 2.000 H, Neut % (Auto) 81.1 H, Lymph % (Auto) 4.4 L, [place] % (Auto) 8.3, Eos % (Auto) 3.5, Baso % (Auto) 0.7, Absolute Neuts (auto) 12.8 H, Absolute Lymphs (auto) 0.70 L, Nucleated RBC % 0 08/11/22 05:35: Sodium 133 L, Potassium 4.2, Chloride 96 L, Carbon Dioxide 27.0, Anion Gap 10, BUN 59 H, Creatinine 4.49 H, Estim Creat Clear Calc 18.87, Est GFR (MDRD) Af Amer 17 L, Est GFR (MDRD) Non-Af 14 L, BUN/Creatinine Ratio 13.1, Glucose 158 H, Calcium 9.4 Micro: Microbiology 08/05/22 Unknown Blood Culture (Wb) - Right Hand Blood Culture - Final Enterococcus faecalis 08/05/22 14:30 Blood Culture (Wb) - Right Hand Blood Culture - Final No growth in 5 days. 08/05/22 18:53 Wound - Left Foot Gram Stain - Final 08/05/22 18:53 Wound - Left Foot Wound Culture - Final Enterococcus faecalis 08/05/22 18:53 Wound - Left Foot Anaerobic Culture - Preliminary Gram negative johnathan Anaerobic cocci 08/05/22 18:53 Wound - Left Foot Gram Stain - Final 08/05/22 18:53 Wound - Left Foot Wound Culture - Final Enterococcus faecalis 08/05/22 18:53 Wound - Left Foot Anaerobic Culture - Preliminary Gram negative johnathan Anaerobic cocci 08/05/22 18:53 Wound - Left Foot Gram Stain - Final 08/05/22 18:53 Wound - Left Foot Wound Culture - Final Enterococcus faecalis 08/05/22 18:53 Wound - Left Foot Anaerobic Culture - Preliminary Gram negative johnathan Anaerobic cocci 08/08/22 10:50 Blood Culture (Wb) - Anticubital Right Blood Culture - Preliminary No growth in 48 hours. 08/08/22 10:30 Blood Culture (Wb) - Right Forearm Blood Culture - Prelimi nary No growth in 48 hours. 08/05/22 14:35 Wound - Toe Gram Stain - Final 08/05/22 14:35 Wound - Toe Wound Culture - Final Enterococcus faecalis Physical Exam Narrative GENERAL: cooperative HEENT: Atraumatic; normocephalic EYES; Anicteric, Normal Conjunctiva NECK; supple, normal thyroid, RESPIRATORY: Diminished to auscultation CARDIOVASCULAR: Regular S1 S2, GI: soft, normoactive bowel sounds, : No Renal angle tenderness; EXTREMITIES: Left foot in surgical dressing MUSCULOSKELETAL: no muscle wasting NEURO: Awake; no lateralizing signs. SKIN: No Rash PSYCH; Flat affect Assessment & Plan Assessment/Plan (1) Osteomyelitis of foot, left, acute: (2) Bacteremia: PLAN: Plan Patient is a 57-year-old gentleman with multiple comorbidities including diabetes mellitus type 2, end-stage renal disease on dialysis who was sent in by his community relations rep with left foot infection. Patient underwent Partially closed amputation transmetatarsal on the left side on 08/05/2022 1. Diabetic foot infection with Enterococcus ? Patient presented with diabetic foot infection involving the left foot imaging studies demonstrated erosive changes in the in the remaining paroxysmal phalanx of the great toe and in the distal aspect of the first metatarsal suspicious of osteomyelitis as well as significant soft tissue and subcutaneous emphysema in the volar tissues.? Additional suspicion for osteomyelitis in the proximal medial aspect of the proximal second phalanx.. Patient underwent artially closed amputation transmetatarsal on the left side on 08/05/2022. Patient remains on broad-spectrum antibiotic therapy with clindamycin, Zosyn and vancomycin with consultation placed to ID ? 08/10/2022; patient antibiotic therapy adjusted by Dr. Frank with infe ctious disease. ? 08/11/2022; ID recommended total of 6 weeks of vancomycin and Unasyn antibiotic therapy 2. Diabetes mellitus type 2 with complications including diabetic polyneuropathy and diabetic nephropathy ? Did continue patient home regimen in addition to Accu-Cheks ACHS and sliding scale coverage 3. End-stage renal disease ? On hemodialysis on Wednesdays and Fridays consult placed to patient's nephrology for dialysis orders 4. Enterococcal bacteremia ? Source thought to be from patient for infection patient remains on broad- spectrum antibiotic therapy with culture sent 5. Anemia - Secondary to chronic disorder monitoring H&H and transfuse if patient becomes symptomatic or hemoglobin falls below 7 6. Paroxysmal A-fib ? Rate controlled currently being monitored continuously on telemetry 7. Hypothyroidism - Patient is on levothyroxine home dose continued 8. Hypertension - Blood pressure controlled, home medications continued with dose adjustment as needed 9. GERD ? On PPI 10. Chronic right shoulder pain ? Pain meds as needed patient is followed by orthopedic surgery 11. Peripheral arterial disease ? Patient is on antiplatelet therapy with aspirin 12. DVT prophylaxis ? Systemic antibiotic coagulation held in view of patient relatively low hemoglo bin levels 13. Physical deconditioning - Requested for PT OT eval and director of social media marketing to assist with discharge planning Time spent in the patient's overall evaluation,decision-making process, review of diagnostic data, adjustment of management, discussion with other providers, nursing nursing and ancillary staff involved in patient's care documentation, 35 Minutes Charges/Coding Visit Charges Inpatient E&M: 14455 Subs Hosp L2
--- NOTE | 2022-08-11 08:37 | PHA.PHARE_ITS ---
Consult Pharmacy has been consulted to manage selected antiobiotic: Vancomycin Type of Consult: Follow-up Prior Doses of Antibiotics Received/Current Regimen: most recently received vanc 500mg IV x1 after HD on 08/09/22 Labs: Sodium 133 mmol/L (136-145) L 08/11/22 05:35 Potassium 4.2 mmol/L (3.5-5.1) 08/11/22 05:35 Chloride 96 mmol/L (98-107) L 08/11/22 05:35 Carbon Dioxide 27.0 mmol/L (21.0-32.0) 08/11/22 05:35 Anion Gap 10 (5-15) 08/11/22 05:35 BUN 59 mg/dL (7-18) H 08/11/22 05:35 Creatinine 4.49 mg/dL (0.70-1.30) H 08/11/22 05:35 Est GFR (MDRD) Af Amer 17 mL/min (>60) L 08/11/22 05:35 Est GFR (MDRD) Non-Af 14 mL/min (>60) L 08/11/22 05:35 BUN/Creatinine Ratio 13.1 RATIO (10-20) 08/11/22 05:35 Glucose 158 mg/dL (74-106) H 08/11/22 05:35 Random Vancomycin 16.6 ug/mL (0.0-15.0) H 08/11/22 05:35 Microbiology: Microbiology 08/05/22 Unknown Blood Culture (Wb) - Right Hand Blood Culture - Final Enterococcus faecalis 08/05/22 14:30 Blood Culture (Wb) - Right Hand Blood Culture - Final No growth in 5 days. 08/05/22 18:53 Wound - Left Foot Gram Stain - Final 08/05/22 18:53 Wound - Left Foot Wound Culture - Final Enterococcus faecalis 08/05/22 18:53 Wound - Left Foot Anaerobic Culture - Preliminary Gram negative johnathan Anaerobic cocci 08/05/22 18:53 Wound - Left Foot Gram Stain - Final 08/05/22 18:53 Wound - Left Foot Wound Culture - Final Enterococcus faecalis 08/05/22 18:53 Wound - Left Foot Anaerobic Culture - Preliminary Gram negative johnathan Anaerobic cocci 08/05/22 18:53 Wound - Left Foot Gram Stain - Final 08/05/22 18:53 Wound - Left Foot Wound Culture - Final Enterococcus faecalis 08/05/22 18:53 Wound - Left Foot Anaerobic Culture - Preliminary Gram negative johnathan Anaerobic cocci 08/08/22 10:50 Blood Culture (Wb) - Anticubital Right Blood Culture - Preliminary No growth in 48 hours. 08/08/22 10:30 Blood Culture (Wb) - Right Forearm Blood Culture - Preliminary No growth in 48 hours. 08/05/22 14:35 Wound - Toe Gram Stain - Final 08/05/22 14:35 Wound - Toe Wound Culture - Final Enterococcus faecalis Weight used for dosin.1 kg Estimated Creatinine Clearance: on HD Goal Trough: 15-20 mcg/mL Pharmacy Plan for Drug Dosing: The vanc random level drawn this morning at 05:35 was 16.6. This is between 15- 20 so will re-dose with 500mg IV x1 after HD today per [facility] protocol in dosing vanc in patients on HD. Will order another random level to be drawn pre-HD on Tuesday since gets HD Mo//. Pharmacy Service will continue to monitor and adjust dosing as required. Follow-Up Labs: Trough Vancomycin - random pre-HD Labs to be done on [date and time ordered]: 08/13/22 0600 pre-HD
[2022-08-11 09:00] VITALS: BP 157/36; PULSE 78; RESP 18; TEMP 36.5; O2SAT 100
[2022-08-11] MEDS: Juven (unflavored) Packet 1 PACKET PO ×2 (09:01→18:32)
[2022-08-11] MEDS: Lidocaine 5% Patch 1 PATCH TOPICAL (09:01)
[2022-08-11] MEDS: oxyCODONE 5 MG Tablet PO ×2 (09:01→14:51)
--- NOTE | 2022-08-11 09:54 | CASEMGMT ---
This SW and JOSÉ ANTONIO Fraser met with patient. SW asked patient if he had chosen a facility. Patient said they are working on it. SW let him know SW needs to know today. Patient said he can't guarantee that. Patient said it may take a day or two to find the right place. SW explained to patient that the physician indicated this am that there needs to be a deadline as patient is ready to go. Patient said they will work on finding a facility. SW also made sure patient was aware SW needs to be aware of the facility as SW has to send referral information and that is how they decide whether or not they can accept patient. Nicole Montalvo LIFE EDUCATOR KENA
--- NOTE | 2022-08-11 10:06 | CASEMGMT ---
Patient asked HORSE RACING MANAGER for SW's name and number so he can give it to his brother. SW met with patient and gave him SW's name and phone number. Patient asked SW to talk with his brother. Nicole ESCUDERO
--- NOTE | 2022-08-11 10:10 | CASEMGMT ---
JOSÉ ANTONIO called patient's brother Drew and left him a voice mail requesting a return call. Nicole ESCUDERO
--- NOTE | 2022-08-11 10:54 | PN.RENAL_ITS ---
Subjective Subjective currently on dialysis, no complaints. Await ECF placement Objective Data Objective Data Vital Signs: Vital Signs Temp Pulse Resp BP Pulse Ox O2 Del Method O2 Flow Rate 97.3 F L 69 18 121/58 H 95 Room Air 2 08/11/22 05:00 08/11/22 05:00 08/11/22 05:00 08/11/22 05:00 08/11/22 05:00 08/11/22 05:00 08/05/22 22:16 Oxygen Flow Rate (L/min) 2 Oxygen Delivery Method Room Air Weight: 93.1 kg Body Mass Index (BMI) 28.6 Intake & Output: Intake and Output for Last 24 Hours 08/09/22 08/10/22 08/11/22 23:59 23:59 23:59 Intake Total 1109.5 / 1109.5 1367.67 / 1367.67 250 / 250 Balance 1109.5 / 1109.5 1367.67 / 1367.67 250 / 250 Lab / Micro Data Result Diagrams: 08/11/22 05:35 08/11/22 05:35 Labs: Laboratory Results - last 24 hr 08/11/22 05:35: Random Vancomycin 16.6 H 08/11/22 05:35: WBC 15.8 H, RBC 2.38 L, Hgb 7.7 L, Hct 22.7 L, MCV 95.4 H, MCH 32.4 H, MCHC 33.9 D, RDW Std Deviation 49.1 H, RDW Coeff of Glen 14.6, Plt Count 272, MPV 10.1, Immature Gran % (Auto) 2.000 H, Neut % (Auto) 81.1 H, Lymph % (Auto) 4.4 L, [place] % (Auto) 8.3, Eos % (Auto) 3.5, Baso % (Auto) 0.7, Absolute Neuts (auto) 12.8 H, Absolute Lymphs (auto) 0.70 L, Nucleated RBC % 0 08/11/22 05:35: Sodium 133 L, Potassium 4.2, Chloride 96 L, Carbon Dioxide 27.0, Anion Gap 10, BUN 59 H, Creatinine 4.49 H, Estim Creat Clear Calc 18.87, Est GFR (MDRD) Af Amer 17 L, Est GFR (MDRD) Non-Af 14 L, BUN/Creatinine Ratio 13.1, Glucose 158 H, Calcium 9.4 08/11/22 05:35: C-React Prot Ext Range 118.00 H Micro: Microbiology 08/05/22 18:53 Wound - Left Foot Gram Stain - Final 08/05/22 18:53 Wound - Left Foot Wound Culture - Final Enterococcus faecalis 08/05/22 18:53 Wound - Left Foot Anaerobic Culture - Final Bacteroides fragilis Anaerobic cocci 08/05/22 18:53 Wound - Left Foot Gram Stain - Final 08/05/22 18:53 Wound - Left Foot Wound Culture - Final Enterococcus faecalis 08/05/22 18:53 Wound - Left Foot Anaerobic Culture - Final Bacteroides fragilis Anaerobic cocci 08/05/22 18:53 Wound - Left Foot Gram Stain - Final 08/05/22 18:53 Wound - Left Foot Wound Culture - Final Enterococcus faecalis 08/05/22 18:53 Wound - Left Foot Anaerobic Culture - Final Bacteroides fragilis Anaerobic cocci 08/05/22 Unknown Blood Culture (Wb) - Right Hand Blood Culture - Final Enterococcus faecalis 08/05/22 14:30 Blood Culture (Wb) - Right Hand Blood Culture - Final No growth in 5 days. 08/08/22 10:50 Blood Culture (Wb) - Anticubital Right Blood Culture - Preliminary No growth in 48 hours. 08/08/22 10:30 Blood Culture (Wb) - Right Forearm Blood Culture - Preliminary No growth in 48 hours. 08/05/22 14:35 Wound - Toe Gram Stain - Final 08/05/22 14:35 Wound - Toe Wound Culture - Final Enterococcus faecalis Physical Exam Const alert and oriented x3 Resp clear to auscultation bilaterally Extremity no clubbing, cyanosis or edema Extremity Narrative: left foot wrapped General Extremity: AV fistula Assessment & Plan Assessment/Plan (1) ESRD on dialysis: PLAN: dialysis today, seen on dialysis proceeding without incident (2) Type 2 diabetes mellitus with diabetic polyneuropathy: (3) Gas gangrene: PLAN: left foot, iv antibx, leukocytosis persists (4) Diabetic infection of left foot: PLAN: s/p toe amputation x4 (5) Cellulitis of left foot: PLAN: iv antibx per ID (6) Acute blood loss anemia: PLAN: hgb 7.7g. s/p blood transfusion, Epo today on dialysis (7) Bacteremia: PLAN: iv antibx, ID following
--- NOTE | 2022-08-11 11:30 | NURSING ---
dexcom glucose reading 97
--- NOTE | 2022-08-11 11:31 | CASEMGMT ---
JOSÉ ANTONIO spoke with patient's brother, Drew. Drew said he is looking at [facility] in [place] and [facility] in [place]. They both have good low infection rates. JOSÉ ANTONIO called [facility] and they no longer have the transitional care they only have an inpatient rehab unit now. [facility] does still have their swing bed unit. JOSÉ ANTONIO sent referrals to [facility] and [facility] via [facility]. Ashley from [facility] called JOSÉ ANTONIO and said they are not in network with [facility]. Nicole Montalvo EVENTS TRAFFIC CONTROLLER GROUNDWATER MONITORING TECHNICIAN
[2022-08-11] MEDS: Epoetin Alfa epbx 10,000 UNITS/ML 10000 UNIT IV (11:48)
[2022-08-11] MEDS: HYDROmorphone 0.5 MG/0.5 ML SYRINGE IV (11:50)
[2022-08-11] MEDS: 0.9% Saline Lock 10 ML Syringe IV (11:50)
--- NOTE | 2022-08-11 12:21 | PN_ITS ---
Subjective Subjective Denies changes overnight, some continued pain to left foot. Objective Data Objective Data Vital Signs: Vital Signs Temp Pulse Resp BP Pulse Ox O2 Del Method O2 Flow Rate 97.7 F L 78 18 157/36 H 100 Room Air 2 08/11/22 09:00 08/11/22 09:00 08/11/22 09:00 08/11/22 09:00 08/11/22 09:00 08/11/22 09:00 08/05/22 22:16 Oxygen Flow Rate (L/min) 2 Oxygen Delivery Method Room Air Weight: 93.1 kg Body Mass Index (BMI) 28.6 Intake & Output: Intake and Output for Last 24 Hours 08/09/22 08/10/22 08/11/22 23:59 23:59 23:59 Intake Total 1109.5 / 1109.5 1367.67 / 1367.67 250 / 250 Balance 1109.5 / 1109.5 1367.67 / 1367.67 250 / 250 Lab / Micro Data Result Diagrams: 08/11/22 05:35 08/11/22 05:35 Labs: Laboratory Results - last 24 hr 08/11/22 05:35: Random Vancomycin 16.6 H 08/11/22 05:35: WBC 15.8 H, RBC 2.38 L, Hgb 7.7 L, Hct 22.7 L, MCV 95.4 H, MCH 32.4 H, MCHC 33.9 D, RDW Std Deviation 49.1 H, RDW Coeff of Glen 14.6, Plt Count 272, MPV 10.1, Immature Gran % (Auto) 2.000 H, Neut % (Auto) 81.1 H, Lymph % (Auto) 4.4 L, [place] % (Auto) 8.3, Eos % (Auto) 3.5, Baso % (Auto) 0.7, Absolute Neuts (auto) 12.8 H, Absolute Lymphs (auto) 0.70 L, Nucleated RBC % 0 08/11/22 05:35: Sodium 133 L, Potassium 4.2, Chloride 96 L, Carbon Dioxide 27.0, Anion Gap 10, BUN 59 H, Creatinine 4.49 H, Estim Creat Clear Calc 18.87, Est GFR (MDRD) Af Amer 17 L, Est GFR (MDRD) Non-Af 14 L, BUN/Creatinine Ratio 13.1, Glucose 158 H, Calcium 9.4 08/11/22 05:35: C-React Prot Ext Range 118.00 H Micro: Microbiology 08/05/22 18:53 Wound - Left Foot Gram Stain - Final 08/05/22 18:53 Wound - Left Foot Wound Culture - Final Enterococcus faecalis 08/05/22 18:53 Wound - Left Foot Anaerobic Culture - Final Bacteroides fragilis Anaerobic cocci 08/05/22 18:53 Wound - Left Foot Gram Stain - Final 08/05/22 18:53 Wound - Left Foot Wound Culture - Final Enterococcus faecalis 08/05/22 18:53 Wound - Left Foot Anaerobic Culture - Final Bacteroides fragilis Anaerobic cocci 08/05/22 18:53 Wound - Left Foot Gram Stain - Final 08/05/22 18:53 Wound - Left Foot Wound Culture - Final Enterococcus faecalis 08/05/22 18:53 Wound - Left Foot Anaerobic Culture - Final Bacteroides fragilis Anaerobic cocci 08/05/22 Unknown Blood Culture (Wb) - Right Hand Blood Culture - Final Enterococcus faecalis 08/05/22 14:30 Blood Culture (Wb) - Right Hand Blood Culture - Final No growth in 5 days. 08/08/22 10:50 Blood Culture (Wb) - Anticubital Right Blood Culture - Preliminary No growth in 48 hours. 08/08/22 10:30 Blood Culture (Wb) - Right Forearm Blood Culture - Preliminary No growth in 48 hours. 08/05/22 14:35 Wound - Toe Gram Stain - Final 08/05/22 14:35 Wound - Toe Wound Culture - Final Enterococcus faecalis Physical Exam Narrative Neurovascular status unchanged Skin incision with healthy flap intact with intact sutures, focal ulceration following course of flexor tendons present, mild sanguinous drainage noted. No residual signs of infection at current. Some ischemic changes noted to the plantar aspect of the transmetatarsal amputation flap. Transmetatarsal amputation noted to left side. Assessment & Plan Assessment/Plan (1) Peripheral vascular disease, unspecified: PLAN: Exam performed TMA site deteriorating, no resolution of leukocytosis/crp, will plan for repeat debridement tuesday. patient vitally stable ID on board; cultures so far + for enterococcus faecalis. . Nephrology on board; patient on hemodialysis. Patient NWB on left, continue this. Recommend SNF placement, patient will require daily dressing changes with packi ng via iodoform dressing application of 4 x 4's Kerlix and light Angel bandage. Will continue to follow daily while patient is in the hospital Will plan to follow patient weekly as an outpatient (2) Type 2 diabetes mellitus with diabetic polyneuropathy: (3) Cellulitis of left foot: (4) Diabetic infection of left foot: (5) Gas gangrene:
--- NOTE | 2022-08-11 12:55 | DIALYSIS ---
Hemodialysis tx completed x 4 hours without complications. Pt tolerated tx well, fluid removed 4500ml using crit-line monitor to B-profiloe. Vitals stable throughout tx. Verbal report to CHARANJIT Villanueva post tx.
--- NOTE | 2022-08-11 13:17 | CASEMGMT ---
[facility] is able to accept patient. JOSÉ ANTONIO spoke with patient's brother Drew and let him know about [facility] and [facility]. Drew asked JOSÉ ANTONIO to send a referral to [facility]. JOSÉ ANTONIO sent referral to [facility] via [facility]. [facility] accepted patient also. JOSÉ ANTONIO called Drew and let him know. JOSÉ ANTONIO asked if he knows which facility they would like. Drew said he will have to talk with patient. JOSÉ ANTONIO asked if he will get back to SW today so the pre-cert can be started. Drew said they will try and do that. Nicole Montalvo ROLL CAPPER EVENT SET UP SPECIALIST
--- NOTE | 2022-08-11 13:28 | PCM.PN.ID ---
Physical Exam Narrative Feeling ok, foot sore, no fever, no n/v/d. Const alert and no apparent distress Resp normal air movement and clear to auscultation bilaterally Cardio regular rate and regular rhythm GI soft to palpation, non-tender and non-distended Skin Skin Narrative: foot wrapped ID ID: Route of nutrition/ use of supplements: [] Nutritional Intake: [] IV Site: [] Cohen Catheter: [] Assessment & Plan Assessment/Plan (1) Gangrene of left foot: PLAN: Now s/p L TMA 08/05/[address] Lyn. Surg cxs so far with enterococcus and anaerobes, including (+) post-lavage cx. 1 of 2 bcx with enterococcus. Cont vanc/unasyn. At discharge, plan will be for 6 weeks total iv vanc dosed with HD, stop date 09/16/22 with weekly labs. Will follow (2) ESRD on dialysis: (3) Type 2 diabetes mellitus with diabetic polyneuropathy: (4) Peripheral vascular disease, unspecified:
[2022-08-11] MEDS: Pantoprazole Sodium 40 MG Tablet PO (14:35)
[2022-08-11] MEDS: Calcitriol 0.25 MCG Capsule 1.25 MCG PO (14:35)
[2022-08-11 14:38] VITALS: BP 122/81; PULSE 79; RESP 16; TEMP 36.3; O2SAT 100
[2022-08-11] MEDS: amLODIPine 10 MG Tablet PO (14:39)
[2022-08-11] MEDS: Losartan Potassium 100 MG Tablet PO (14:39)
[2022-08-11] MEDS: Ascorbic Acid 500 MG Tablet PO (14:40)
[2022-08-11] MEDS: Folic Acid/Vitamin B Comp W-C 1 Capsule 1 CAP PO (14:40)
[2022-08-11] MEDS: Aspirin E.C. 81 MG Tablet PO (14:40)
[2022-08-11] MEDS: LINAGLIPTIN 5 MG TABLET PO (14:40)
--- NOTE | 2022-08-11 16:00 | NURSING ---
Dexcom glucose reading 106
[2022-08-11] MEDS: Vancomycin IV 500 MG/100 ML BAG 100 MG IV (16:27)
[2022-08-11] MEDS: Bumetanide 2 MG Tablet PO (18:32)
[2022-08-11 18:36] VITALS: BP 138/73; PULSE 81; RESP 16; TEMP 36.3; O2SAT 98
[2022-08-11] MEDS: Insulin NPH Human 100 UNITS/ML PEN SC (22:10)
[2022-08-11] MEDS: MELATONIN 3 MG TABLET 6 MG PO (22:11)
[2022-08-12 00:35] VITALS: BP 127/51; PULSE 78; RESP 18; TEMP 36.6; O2SAT 100
[2022-08-12] MEDS: HYDROmorphone 0.5 MG/0.5 ML SYRINGE IV (02:52)
[2022-08-12 04:19] VITALS: BMI 28.9
[2022-08-12] MEDS: Acetaminophen 500 MG Tablet 1000 MG PO ×3 (05:42→21:35)
[2022-08-12] MEDS: 0.9% Saline Lock 10 ML Syringe IV ×3 (05:42→21:41)
[2022-08-12] MEDS: Levothyroxine 100 MCG Tablet 200 MCG PO (05:43)
[2022-08-12] MEDS: Menthol/Lanolin/Calamine/Znox 113 GM Tube 1 APPLIC TOPICAL ×2 (05:44→21:36)
[2022-08-12 05:50] VITALS: BP 122/54; PULSE 77; RESP 16; TEMP 36.6; O2SAT 98
--- NOTE | 2022-08-12 06:05 | NURSING ---
PATIENT ATTENDANT CHANGED TELE BATTERIES PER NURSE REQUEST. PATIENT ATTENDANT STATED PATIENT UPSET AND STATED PAIN IN ARM FROM PATIENT ATTENDANT CHANGING BATTERIES. PATIENT CALLED RN AND REQUESTED RN COME TO PATIENT ROOM. PATIENT STATES PATIENT ATTENDANT WAS ROUGH AND HURT ARM NO VISIBLE SWELLING OR BRUISING NOTED ARM IN SLING FROM PREVIOUS FRACTURE. PAIN MEDICATION AND ICE PROVIDED. PATIENT REQUESTS AN XRAY HOSPITALIST NOTIFIED. CHARGE NURSE AND ASSET PROTECTION AGENT NOTIFIED.
--- NOTE | 2022-08-12 06:16 | PCM.HOSP.N ---
Hospitalist Note Patient with chronic R shoulder pain with Fx hx, non-surgical candidate, following with Dr. Merida. Complaining ofworsening intractable ongoing pain, plain film R shoulder ordered.
[2022-08-12 06:19] LABS: Absolute Lymphocyte Count 0.78 X10^3/uL (0.83-4.51); Absolute Neutrophil Count 13.1 X10^3/uL (2.0-7.7); Basophil# 0.12 X10^3/uL; Basophil% 0.7 % (0-1); Hematocrit 23.6 % (40-54); Hemoglobin 7.6 g/dL (13.0-16.5); Lymphocyte # 0.78 X10^3/ul (0.83-4.51); Lymphocyte % 4.7 % (19-41); Mean Corp Hgb Conc 32.2 g/dL (32-36); Mean Corpuscular Hgb 30.9 pg (27.0-32.0); Mean Corpuscular Volume 95.9 fL (80-94); Mean Platelet Vol. 9.8 fl (6.2-12.0); Monocyte% 9.1 % (0-10); NRBC Flagged by Analyzer 0 % (0-5); Neutrophil # 13.12 X10^3/uL (2.7-7.7); Neutrophil % 79.5 % (47-70); Platelet Count 305 K/mm3 (150-450); RBC Distribution Width CV 14.7 % (11.6-14.6); RBC Distribution Width SD 50.2 fl (35.1-43.9); Red Blood Count 2.46 M/mm3 (4.6-6.2); White Blood Count 16.5 K/mm3 (4.4-11.0)
[2022-08-12 06:29] LABS: Anion Gap 10 (5-15); BUN 42 mg/dL (7-18); BUN/Creat Ratio 13.2 RATIO (10-20); Calcium,Total 9.3 mg/dL (8.5-10.1); Chloride 97 mmol/L (98-107); Creatinine, Serum 3.17 mg/dL (0.70-1.30); EST Glomerular Filtration Rate 21 mL/min (>60); Est Glom Filt Rate - Afr Amer 26 mL/min (>60); Estimated Creatinine Clearance 26.72 ml/min; Glucose 173 mg/dL (74-106); Potassium 4.1 mmol/L (3.5-5.1); Sodium Level 134 mmol/L (136-145)
--- NOTE | 2022-08-12 08:49 | ART_ITS ---
Reason For Study: Ulcer Procedure A bilateral lower extremity continuous wave Doppler with analog waveform analysis,segmental pressures,and ankle brachial indexes without exercise. Left Segmental Pressures Left posterior tibial artery = >254mmHg. Left dorsalis pedis artery = >254mmHg. The left dorsalis pedis waveforms are biphasic. The left posterior tibial artery waveforms are biphasic. Right Segmental Pressures Right posterior tibial artery = >254mmHg. Right dorsalis pedis artery = >254mmHg. Right digit = >254 mmHg. The right dorsalis pedis waveforms are biphasic. The right posterior tibial artery waveforms are monophasic. Indices The right ankle brachial index by the dorsalis pedis is NC. The right ankle brachial index by the posterior tibial artery is NC. The left ankle brachial index by the dorsalis pedis is NC. The left ankle brachial index by the posterior tibial artery is NC. VL/Lower Ext Art Exam w/o Exercis Interpretation Summary This is a technically very limited examination. Brachial blood pressures could not be performed secondary to her right upper extremity fracture and a left upper extremity fist jacques Right posterior tibial Doppler waveforms are monophasic while the dorsalis pedi s waveforms are biphasic correlating with at least moderately severe to severe occlusive diseas e Left posterior tibial and dorsalis pedis Doppler waveforms are biphasic correla ting with moderately severe occlusive disease Ordering Physician: Earnest Lyn Referring Physician: Hortensia Reno Performed By: Erika Quintana RVT
--- NOTE | 2022-08-12 09:09 | PCM.PN.HOSP ---
Reason for Visit Reason for Visit: Diagnoses Gas gangrene (08/05/22) Acute posthemorrhagic anemia (08/05/22) Type 2 diabetes mellitus with diabetic polyneuropathy (08/05/22) Type 2 diabetes mellitus with other skin complications (08/05/22) Peripheral vascular disease, unspecified (08/05/22) Gangrene, not elsewhere classified (08/05/22) Cellulitis of left lower limb (08/05/22) Local infection of the skin and subcutaneous tissue, unspecified (08/05/22) Other acute osteomyelitis, left ankle and foot (08/05/22) End stage renal disease (08/05/22) Bacteremia (08/05/22) Dependence on renal dialysis (08/05/22) Subjective Subjective Case was discussed with Dr. Lyn with podiatry today prior. Plans for patient to undergo repeat wound debridement on 08/13/2022 Objective Data Objective Data Vital Signs: Vital Signs Temp Pulse Resp BP Pulse Ox O2 Del Method O2 Flow Rate 98 F 77 16 122/54 H 98 Room Air 2 08/12/22 05:50 08/12/22 05:50 08/12/22 05:50 08/12/22 05:50 08/12/22 05:50 08/12/22 05:50 08/05/22 22:16 Oxygen Flow Rate (L/min) 2 Oxygen Delivery Method Room Air Weight: 94.2 kg Body Mass Index (BMI) 28.9 Intake & Output: Intake and Output for Last 24 Hours 08/10/22 08/11/22 08/12/22 23:59 23:59 23:59 Intake Total 1367.67 / 1367.67 1694 / 1694 Output Total 4220 / 4220 Balance 1367.67 / 1367.67 -2526 / -2526 Lab / Micro Data Result Diagrams: 08/12/22 05:35 08/12/22 05:35 Labs: Laboratory Results - last 24 hr 08/12/22 05:35: WBC 16.5 H, RBC 2.46 L, Hgb 7.6 L, Hct 23.6 L, MCV 95.9 H, MCH 30.9, MCHC 32.2 D, RDW Std Deviation 50.2 H, RDW Coeff of [place] 14.7 H, Plt Count 305, MPV 9.8, Immature Gran % (Auto) 3.000 H, Neut % (Auto) 79.5 H, Lymph % (Auto) 4.7 L, [place] % (Auto) 9.1, Eos % (Auto) 3.0, Baso % (Auto) 0.7, Absolute Neuts (auto) 13.1 H, Absolute Lymphs (auto) 0.78 L, Nucleated RBC % 0 08/12/22 05:35: Sodium 134 L, Potassium 4.1, Chloride 97 L, Carbon Dioxide 27.0, Anion Gap 10, BUN 42 H, Creatinine 3.17 H, Estim Creat Clear Calc 26.72, Est GFR (MDRD) Af Amer 26 L, Est GFR (MDRD) Non-Af 21 L, BUN/Creatinine Ratio 13.2, Glucose 173 H, Calcium 9.3 Micro: Microbiology 08/05/22 18:53 Wound - Left Foot Gram Stain - Final 08/05/22 18:53 Wound - Left Foot Wound Culture - Final Enterococcus faecalis 08/05/22 18:53 Wound - Left Foot Anaerobic Culture - Final Bacteroides fragilis Anaerobic cocci 08/05/22 18:53 Wound - Left Foot Gram Stain - Final 08/05/22 18:53 Wound - Left Foot Wound Culture - Final Enterococcus faecalis 08/05/22 18:53 Wound - Left Foot Anaerobic Culture - Final Bacteroides fragilis Anaerobic cocci 08/05/22 18:53 Wound - Left Foot Gram Stain - Final 08/05/22 18:53 Wound - Left Foot Wound Culture - Final Enterococcus faecalis 08/05/22 18:53 Wound - Left Foot Anaerobic Culture - Final Bacteroides fragilis Anaerobic cocci 08/05/22 Unknown Blood Culture (Wb) - Right Hand Blood Culture - Final Enterococcus faecalis 08/05/22 14:30 Blood Culture (Wb) - Right Hand Blood Culture - Final No growth in 5 days. 08/08/22 10:50 Blood Culture (Wb) - Anticubital Right Blood Culture - Preliminary No growth in 48 hours. 08/08/22 10:30 Blood Culture (Wb) - Right Forearm Blood Culture - Preliminary No growth in 48 hours. 08/05/22 14:35 Wound - Toe Gram Stain - Final 08/05/22 14:35 Wound - Toe Wound Culture - Final Enterococcus faecalis Physical Exam Narrative GENERAL: cooperative HEENT: Atraumatic; normocephalic EYES; Anicteric, Normal Conjunctiva NECK; supple, normal thyroid, RESPIRATORY: Diminished to auscultation CARDIOVASCULAR: Regular S1 S2, GI: soft, normoactive bowel sounds, : No Renal angle tenderness; EXTREMITIES: Left foot in surgical dressing MUSCULOSKELETAL: no muscle wasting NEURO: Awake; no lateralizing signs. SKIN: No Rash PSYCH; Flat affect Assessment & Plan Assessment/Plan (1) Osteomyelitis of foot, left, acute: (2) Bacteremia: PLAN: Plan Patient is a 57-year-old gentleman with multiple comorbidities including diabetes mellitus type 2, end-stage renal disease on dialysis who was sent in by his core inspector with left foot infection. Patient underwent Partially closed amputation transmetatarsal on the left side on 08/05/2022 1. Diabetic foot infection with Enterococcus ? Patient presented with diabetic foot infection involving the left foot imaging studies demonstrated erosive changes in the in the remaining paroxysmal phalanx of the great toe and in the distal aspect of the first metatarsal suspicious of osteomyelitis as well as significant soft tissue and subcutaneous emphysema in the volar tissues.? Additional suspicion for osteomyelitis in the proximal medial aspect of the proximal second phalanx.. Patient underwent artially closed amputation transmetatarsal on the left side on 08/05/2022. Patient remains on broad-spectrum antibiotic therapy with clindamycin, Zosyn and vancomycin with consultation placed to ID ? 08/10/2022; patient antibiotic therapy adjusted by Dr. Frank with infectious disease. ? 08/11/2022; ID recommended total of 6 weeks of vancomycin and Unasyn antibiotic therapy ? 08/12/2022; Case was discussed with Dr. Lyn with podiatry today prior. Plans for patient to undergo repeat wound debridement on 08/13/2022 2. Diabetes mellitus type 2 with complications including diabetic polyneuropathy and diabetic nephropathy ? Did continue patient home regimen in addition to Accu-Cheks ACHS and sliding scale coverage 3. End-stage renal disease ? On hemodialysis on Wednesdays and Fridays consult placed to patient's nephrology for dialysis orders 4. Enterococcal bacteremia ? Source thought to be from patient for infection patient remains on broad-spectrum antibiotic therapy with culture sent 5. Anemia - Secondary to chronic disorder monitoring H&H and transfuse if patient becomes symptomatic or hemoglobin falls below 7 6. Paroxysmal A-fib ? Rate controlled currently being monitored continuously on telemetry 7. Hypothyroidism - Patient is on levothyroxine home dose continued 8. Hypertension - Blood pressure controlled, home medications continued with dose adjustment as needed 9. GERD ? On PPI 10. Chronic right shoulder pain ? Pain meds as needed patient is followed by orthopedic surgery 11. Peripheral arterial disease ? Patient is on antiplatelet therapy with aspirin 12. DVT prophylaxis ? Systemic antibiotic coagulation held in view of patient relatively low hemoglobin levels 13. Physical deconditioning - Requested for PT OT eval and social work program coordinator to assist with discharge planning Time spent in the patient's overall evaluation,decision-making process, review of diagnostic data, adjustment of management, discussion with other providers, nursing nursing and ancillary staff involved in patient's care documentation, 35 Minutes Charges/Coding Visit Charges Inpatient E&M: 06521 [facility] Hosp L2
[2022-08-12 10:37] VITALS: BP 141/50; PULSE 75; RESP 16; TEMP 36.7; O2SAT 96
[2022-08-12] MEDS: Juven (unflavored) Packet 1 PACKET PO ×2 (10:39→17:23)
[2022-08-12] MEDS: Bumetanide 2 MG Tablet PO ×2 (10:41→17:22)
[2022-08-12] MEDS: Losartan Potassium 100 MG Tablet PO (10:42)
[2022-08-12] MEDS: Aspirin E.C. 81 MG Tablet PO (10:42)
[2022-08-12] MEDS: Pantoprazole Sodium 40 MG Tablet PO (10:42)
[2022-08-12] MEDS: amLODIPine 10 MG Tablet PO (10:42)
[2022-08-12] MEDS: LINAGLIPTIN 5 MG TABLET PO (10:42)
[2022-08-12] MEDS: Lidocaine 5% Patch 1 PATCH TOPICAL (10:42)
[2022-08-12] MEDS: Folic Acid/Vitamin B Comp W-C 1 Capsule 1 CAP PO (10:42)
[2022-08-12] MEDS: Ascorbic Acid 500 MG Tablet PO (10:43)
[2022-08-12] MEDS: Insulin Lispro 100 UNIT/ML INSULN.PEN SC ×3 (12:02→21:36)
[2022-08-12] MEDS: oxyCODONE 5 MG Tablet PO ×3 (12:04→21:34)
--- NOTE | 2022-08-12 13:02 | CASEMGMT ---
JOSÉ ANTONIO called patient's brother Drew. Drew was aware patient is having surgery tomorrow. JOSÉ ANTONIO asked if he and patient have chosen a facility. Drew said they have not. They were waiting until after surgery. Drew said he didn't understand why them choosing a facility is so important when we don't even know if patient will make it out of the hospital. Drew said patient is fighting for his life right now. JOSÉ ANTONIO told Drew that SW was never given the impression that patient was not going to make it out of the hospital. Drew said patient has a blood infection. JOSÉ ANTONIO explained that is why infectious disease is on the case and has prescribed IV antibiotics. JOSÉ ANTONIO again explained SW was never given the impression from the physician that patient is not going to make it. Drew again asked why it is so important to have a facility. JOSÉ ANTONIO explained the two facilities they chose have accepted patient. However, there is no guarantee they will have a bed for him when he is ready unless they are notified they are the facility of choice. Drew said they will choose another facility. JOSÉ ANTONIO continued to explain when Tuesday comes and physician says patient is ready for discharge JOSÉ ANTONIO can notify the facility to send information to insurance and start the pre-cert with insurance which can take a day or two. Drew said he will see what they can do. Nicole Montalvo [employer] KE[employer]
[2022-08-12 17:34] VITALS: BP 139/58; PULSE 74; RESP 16; TEMP 36.4; O2SAT 98
[2022-08-12 21:30] VITALS: BP 136/40; PULSE 78; RESP 18; TEMP 36.7; O2SAT 97
--- NOTE | 2022-08-12 21:33 | NURSING ---
Dexcom glucose reading 153
[2022-08-12] MEDS: MELATONIN 3 MG TABLET 6 MG PO (21:35)
[2022-08-12] MEDS: Insulin NPH Human 100 UNITS/ML PEN SC (21:36)
[2022-08-13] VITALS (14 sets, daily range): BP systolic 123–154; BP diastolic 35–78; PULSE 71–79; RESP 16–18; TEMP 36.3–36.9; O2SAT 95–100; BMI 28.9; BMI 29.0
--- NOTE | 2022-08-13 05:25 | RAD_ITS ---
EXAM: XR RIGHT SHOULDER COMPLETE, 2 OR MORE VIEWS CLINICAL INDICATION: Shoulder pain TECHNIQUE: Two or more views of the right shoulder. This report was created using [employer] report generation technology. COMPARISON: Shoulder radiographs of 08/04/2022 and 07/19/2022. FINDINGS: BONES/JOINTS: The comminuted fracture of the proximal right humerus is again noted, with fracture lines extending across the surgical neck and through the base of the greater tubercle. On the Y view, the humeral shaft demonstrates greater anterior displacement in relation to the humeral head than on the prior studies. On the AP view, alignment of the fracture fragments has not significantly changed. The humeral head remains aligned with the glenoid rim. No fracture of the glenoid rim is identified. The right AC joint is not widened. No sclerotic or destructive changes observed. SOFT TISSUES: Unremarkable. No soft tissue swelling or gas. No radiopaque foreign body. OTHER: Visualized upper ribs are intact and the visualized right upper lung is clear. RAD/Shoulder min 2 Views IMPRESSION: Comminuted fracture of the proximal right humerus again noted, with mild interval increase in the anterior displacement of the humeral shaft in relation to the humeral head as compared with the prior studies. Electronically Signed: Tripp Lyons MD at 7:28 EDT ,
--- NOTE | 2022-08-13 05:55 | EKG12_ITS ---
Test Reason : AM EKG Blood Pressure : / mmHG Vent. Rate : 069 BPM Atrial Rate : 069 BPM P-R Int : 156 ms QRS Dur : 094 ms QT Int : 448 ms P-R-T Axes : 011 -39 011 degrees QTc Int : 480 ms Normal sinus rhythm Left axis deviation Prolonged QT Abnormal ECG When compared with ECG of 21-JUL-2022 13:10, Nonspecific T wave abnormality no longer evident in Anterior leads Confirmed by SHAYAN TREADWELL, AELXIA ([id number]), international editorial producer SUHA PAULSON ([id number]) on 08/17/2022 9:00:33 AM Referred By: Tigist Greenwood Confirmed By:ALEXIA DOWNEY MD
[2022-08-13 05:58] LABS: Absolute Lymphocyte Count 0.85 X10^3/uL (0.83-4.51); Absolute Neutrophil Count 11.8 X10^3/uL (2.0-7.7); Basophil# 0.13 X10^3/uL; Basophil% 0.9 % (0-1); Eosinophil# 0.69 X10^3/uL; Eosinophils% 4.6 % (0-5); Hematocrit 23.6 % (40-54); Hemoglobin 7.7 g/dL (13.0-16.5); Lymphocyte # 0.85 X10^3/ul (0.83-4.51); Lymphocyte % 5.6 % (19-41); Mean Corp Hgb Conc 32.6 g/dL (32-36); Mean Corpuscular Hgb 31.2 pg (27.0-32.0); Mean Corpuscular Volume 95.5 fL (80-94); Mean Platelet Vol. 9.5 fl (6.2-12.0); Monocyte# 1.27 X10^3/uL; Monocyte% 8.4 % (0-10); NRBC Flagged by Analyzer 0 % (0-5); Neutrophil # 11.84 X10^3/uL (2.7-7.7); Neutrophil % 78.4 % (47-70); Platelet Count 288 K/mm3 (150-450); RBC Distribution Width CV 14.6 % (11.6-14.6); RBC Distribution Width SD 50.5 fl (35.1-43.9); Red Blood Count 2.47 M/mm3 (4.6-6.2); White Blood Count 15.1 K/mm3 (4.4-11.0)
[2022-08-13] MEDS: oxyCODONE 5 MG Tablet PO ×2 (06:08→20:27)
[2022-08-13] MEDS: Acetaminophen 500 MG Tablet 1000 MG PO ×2 (06:08→20:42)
[2022-08-13] MEDS: Levothyroxine 100 MCG Tablet 200 MCG PO (06:09)
[2022-08-13] MEDS: Menthol/Lanolin/Calamine/Znox 113 GM Tube 1 APPLIC TOPICAL ×2 (06:10→20:42)
--- NOTE | 2022-08-13 06:21 | NURSING ---
dexcom blood glucose reading 120
[2022-08-13 06:28] LABS: Anion Gap 10 (5-15); BUN 60 mg/dL (7-18); BUN/Creat Ratio 14.3 RATIO (10-20); Calcium,Total 9.7 mg/dL (8.5-10.1); Chloride 97 mmol/L (98-107); EST Glomerular Filtration Rate 16 mL/min (>60); Est Glom Filt Rate - Afr Amer 19 mL/min (>60); Estimated Creatinine Clearance 20.17 ml/min; Glucose 127 mg/dL (74-106); Sodium Level 134 mmol/L (136-145)
[2022-08-13 06:31] LABS: Vancomycin, Random Level 16.4 ug/mL (0.0-15.0)
[2022-08-13] MEDS: Lidocaine/Prilocaine HCl 5 GM Tube TOPICAL (08:15)
--- NOTE | 2022-08-13 08:43 | PCM.PN.HOSP ---
Reason for Visit Reason for Visit: Diagnoses Gas gangrene (08/05/22) Acute posthemorrhagic anemia (08/05/22) Type 2 diabetes mellitus with diabetic polyneuropathy (08/05/22) Type 2 diabetes mellitus with other skin complications (08/05/22) Peripheral vascular disease, unspecified (08/05/22) Gangrene, not elsewhere classified (08/05/22) Cellulitis of left lower limb (08/05/22) Local infection of the skin and subcutaneous tissue, unspecified (08/05/22) Other acute osteomyelitis, left ankle and foot (08/05/22) End stage renal disease (08/05/22) Bacteremia (08/05/22) Dependence on renal dialysis (08/05/22) Subjective Subjective Scheduled to undergo wound debridement. Diagnostic data reviewed. WBC count remains elevated at 15.1, hemoglobin down to 7.7 Objective Data Objective Data Vital Signs: Vital Signs Temp Pulse Resp BP Pulse Ox O2 Del Method O2 Flow Rate 97.5 F L 72 16 127/45 H 99 Room Air 2 08/13/22 08:06 08/13/22 08:06 08/13/22 08:06 08/13/22 08:06 08/13/22 08:06 08/13/22 08:06 08/05/22 22:16 Oxygen Flow Rate (L/min) 2 Oxygen Delivery Method Room Air Weight: 94 kg Body Mass Index (BMI) 28.9 Intake & Output: Intake and Output for Last 24 Hours 08/11/22 08/12/22 08/13/22 23:59 23:59 23:59 Intake Total 1694 / 1694 1224 / 1224 Output Total 4220 / 4220 0 / 0 0 / 0 Balance -2526 / -2526 1224 / 1224 0 / 0 Lab / Micro Data Result Diagrams: 08/13/22 05:45 08/13/22 05:45 Labs: Laboratory Results - last 24 hr 08/13/22 05:45: Random Vancomycin 16.4 H 08/13/22 05:45: WBC 15.1 H, RBC 2.47 L, Hgb 7.7 L, Hct 23.6 L, MCV 95.5 H, MCH 31.2, MCHC 32.6, RDW Std Deviation 50.5 H, RDW Coeff of Glen 14.6, Plt Count 288, MPV 9.5, Immature Gran % (Auto) 2.100 H, Neut % (Auto) 78.4 H, Lymph % (Auto) 5.6 L, [place] % (Auto) 8.4, Eos % (Auto) 4.6, Baso % (Auto) 0.9, Absolute Neuts (auto) 11.8 H, Absolute Lymphs (auto) 0.85, Nucleated RBC % 0 08/13/22 05:45: Sodium 134 L, Potassium 4.0, Chloride 97 L, Carbon Dioxide 27.0, Anion Gap 10, BUN 60 H, Creatinine 4.20 H, Estim Creat Clear Calc 20.17, Est GFR (MDRD) Af Amer 19 L, Est GFR (MDRD) Non-Af 16 L, BUN/Creatinine Ratio 14.3, Glucose 127 H, Calcium 9.7 Micro: Microbiology 08/05/22 18:53 Wound - Left Foot Gram Stain - Final 08/05/22 18:53 Wound - Left Foot Wound Culture - Final Enterococcus faecalis 08/05/22 18:53 Wound - Left Foot Anaerobic Culture - Final Bacteroides fragilis Anaerobic cocci 08/05/22 18:53 Wound - Left Foot Gram Stain - Final 08/05/22 18:53 Wound - Left Foot Wound Culture - Final Enterococcus faecalis 08/05/22 18:53 Wound - Left Foot Anaerobic Culture - Final Bacteroides fragilis Anaerobic cocci 08/05/22 18:53 Wound - Left Foot Gram Stain - Final 08/05/22 18:53 Wound - Left Foot Wound Culture - Final Enterococcus faecalis 08/05/22 18:53 Wound - Left Foot Anaerobic Culture - Final Bacteroides fragilis Anaerobic cocci 08/05/22 Unknown Blood Culture (Wb) - Right Hand Blood Culture - Final Enterococcus faecalis 08/05/22 14:30 Blood Culture (Wb) - Right Hand Blood Culture - Final No growth in 5 days. 08/08/22 10:50 Blood Culture (Wb) - Anticubital Right Blood Culture - Preliminary No growth in 48 hours. 08/08/22 10:30 Blood Culture (Wb) - Right Forearm Blood Culture - Preliminary No growth in 48 hours. 08/05/22 14:35 Wound - Toe Gram Stain - Final 08/05/22 14:35 Wound - Toe Wound Culture - Final Enterococcus faecalis Radiography Diagnostic Testing: Radiology Impression Extremity Arterial Study 08/12/22 08:49 Interpretation Summary This is a technically very limited examination. Brachial blood pressures could not be performed secondary to her right upper extremity fracture and a left upper extremity fistula Right posterior tibial Doppler waveforms are monophasic while the dorsalis pedis waveforms are biphasic correlating with at least moderately severe to severe occlusive disease Left posterior tibial and dorsalis pedis Doppler waveforms are biphasic correlating with moderately severe occlusive disease Ordering Physician: Earnest Lyn Referring Physician: Hortensia Reno Performed By: Erika Quintana, [facility] Shoulder X-Ray 08/13/22 05:25 IMPRESSION: Comminuted fracture of the proximal right humerus again noted, with mild interval increase in the anterior displacement of the humeral shaft in relation to the humeral head as compared with the prior studies. Electronically Signed: Tripp Lyons MD at 7:28 EDT , Physical Exam Narrative GENERAL: cooperative HEENT: Atraumatic; normocephalic EYES; Anicteric, Normal Conjunctiva NECK; supple, normal thyroid, RESPIRATORY: Diminished to auscultation CARDIOVASCULAR: Regular S1 S2, GI: soft, normoactive bowel sounds, : No Renal angle tenderness; EXTREMITIES: Left foot in surgical dressing MUSCULOSKELETAL: no muscle wasting NEURO: Awake; no lateralizing signs. SKIN: No Rash PSYCH; Flat affect Assessment & Plan Assessment/Plan (1) Osteomyelitis of foot, left, acute: (2) Bacteremia: PLAN: Plan Patient is a 57-year-old gentleman with multiple comorbidities including diabetes mellitus type 2, end-stage renal disease on dialysis who was sent in by his salesperson parts with left foot infection. Patient underwent Partially closed amputation transmetatarsal on the left side on 08/05/2022 1. Diabetic foot infection with Enterococcus ? Patient presented with diabetic foot infection involving the left foot imaging studies demonstrated erosive changes in the in the remaining paroxysmal phalanx of the great toe and in the distal aspect of the first metatarsal suspicious of osteomyelitis as well as significant soft tissue and subcutaneous emphysema in the volar tissues.? Additional suspicion for osteomyelitis in the proximal medial aspect of the proximal second phalanx.. Patient underwent artially closed amputation transmetatarsal on the left side on 08/05/2022. Patient remains on broad-spectrum antibiotic therapy with clindamycin, Zosyn and vancomycin with consultation placed to ID ? 08/10/2022; patient antibiotic therapy adjusted by Dr. Frank with infectious disease. ? 08/11/2022; ID recommended total of 6 weeks of vancomycin and Unasyn antibiotic therapy ? 08/12/2022; Case was discussed with Dr. Lyn with podiatry today prior. Plans for patient to undergo repeat wound debridement on 08/13/2022 ? 08/13/2022; patient scheduled to undergo wound debridement. WBC count remains elevated. 2. Diabetes mellitus type 2 with complications including diabetic polyneuropathy and diabetic nephropathy ? Did continue patient home regimen in addition to Accu-Cheks ACHS and sliding scale coverage 3. End-stage renal disease ? On hemodialysis on Wednesdays and Fridays consult placed to patient's nephrology for dialysis orders 4. Enterococcal bacteremia ? Source thought to be from patient for infection patient remains on broad-spectrum antibiotic therapy with culture sent 5. Anemia - Secondary to chronic disorder monitoring H&H and transfuse if patient becomes symptomatic or hemoglobin falls below 7 6. Paroxysmal A-fib ? Rate controlled currently being monitored continuously on telemetry 7. Hypothyroidism - Patient is on levothyroxine home dose continued 8. Hypertension - Blood pressure controlled, home medications continued with dose adjustment as needed 9. GERD ? On PPI 10. Chronic right shoulder pain ? Pain meds as needed patient is followed by orthopedic surgery 11. Peripheral arterial disease ? Patient is on antiplatelet therapy with aspirin 12. DVT prophylaxis ? Systemic antibiotic coagulation held in view of patient relatively low hemoglobin levels 13. Physical deconditioning - Requested for PT OT eval and social media campaign manager to assist with discharge planning Time spent in the patient's overall evaluation,decision-making process, review of diagnostic data, adjustment of management, discussion with other providers, nursing nursing and ancillary staff involved in patient's care documentation, 35 Minutes Charges/Coding Visit Charges Inpatient E&M: 70061 Subs Hosp L2
--- NOTE | 2022-08-13 09:05 | PHA.PHARE_ITS ---
Consult Pharmacy has been consulted to manage selected antiobiotic: Vancomycin Type of Consult: Follow-up Prior Doses of Antibiotics Received/Current Regimen: received vanc 500mg IV x1 after HD on 08/11/22 Labs: Sodium 134 mmol/L (136-145) L 08/13/22 05:45 Potassium 4.0 mmol/L (3.5-5.1) 08/13/22 05:45 Chloride 97 mmol/L (98-107) L 08/13/22 05:45 Carbon Dioxide 27.0 mmol/L (21.0-32.0) 08/13/22 05:45 Anion Gap 10 (5-15) 08/13/22 05:45 BUN 60 mg/dL (7-18) H 08/13/22 05:45 Creatinine 4.20 mg/dL (0.70-1.30) H 08/13/22 05:45 Est GFR (MDRD) Af Amer 19 mL/min (>60) L 08/13/22 05:45 Est GFR (MDRD) Non-Af 16 mL/min (>60) L 08/13/22 05:45 BUN/Creatinine Ratio 14.3 RATIO (10-20) 08/13/22 05:45 Glucose 127 mg/dL (74-106) H 08/13/22 05:45 Random Vancomycin 16.4 ug/mL (0.0-15.0) H 08/13/22 05:45 Microbiology: Microbiology 08/05/22 18:53 Wound - Left Foot Gram Stain - Final 08/05/22 18:53 Wound - Left Foot Wound Culture - Final Enterococcus faecalis 08/05/22 18:53 Wound - Left Foot Anaerobic Culture - Final Bacteroides fragilis Anaerobic cocci 08/05/22 18:53 Wound - Left Foot Gram Stain - Final 08/05/22 18:53 Wound - Left Foot Wound Culture - Final Enterococcus faecalis 08/05/22 18:53 Wound - Left Foot Anaerobic Culture - Final Bacteroides fragilis Anaerobic cocci 08/05/22 18:53 Wound - Left Foot Gram Stain - Final 08/05/22 18:53 Wound - Left Foot Wound Culture - Final Enterococcus faecalis 08/05/22 18:53 Wound - Left Foot Anaerobic Culture - Final Bacteroides fragilis Anaerobic cocci 08/05/22 Unknown Blood Culture (Wb) - Right Hand Blood Culture - Final Enterococcus faecalis 08/05/22 14:30 Blood Culture (Wb) - Right Hand Blood Culture - Final No growth in 5 days. 08/08/22 10:50 Blood Culture (Wb) - Anticubital Right Blood Culture - Pre liminary No growth in 48 hours. 08/08/22 10:30 Blood Culture (Wb) - Right Forearm Blood Culture - Preliminary No growth in 48 hours. 08/05/22 14:35 Wound - Toe Gram Stain - Final 08/05/22 14:35 Wound - Toe Wound Culture - Final Enterococcus faecalis Weight used for dosin kg Estimated Creatinine Clearance: on HD Goal Trough: 15-20 mcg/mL Pharmacy Plan for Drug Dosing: The vanc random level drawn this morning was 16.4. Will re-dose again with vanc 500mg IV x1 after HD today. Recheck a random level Tuesday before dialysis as the patient gets HD Mo//. Pharmacy Service will continue to monitor and adjust dosing as required. Follow-Up Labs: Trough Vancomycin - random pre-HD Labs to be done on [date and time ordered]: 08/16/22 0600
--- NOTE | 2022-08-13 09:44 | PCM.PN.BLA ---
Progress Note dialysis on 3K today. Debridement of foot scheduled for later today Assessment & Plan Assessment/Plan (1) ESRD on dialysis: PLAN: dialysis today and MWF (2) Type 2 diabetes mellitus with diabetic polyneuropathy: (3) Diabetic infection of left foot: PLAN: s/p TMA podiatry following (4) Acute blood loss anemia: PLAN: hgb 7.7g (5) Bacteremia: PLAN: iv antibx, ID following
--- NOTE | 2022-08-13 11:25 | CASEMGMT ---
Physician told SW that patient told him he will either go to the facility in [place] or [place]. SW was not aware of patient wanting a facility in [place]. SW called patient's brother Drew and left him a voice mail letting him know patient mentioned a facility in [place]. SW asked if he could call SW back to let SW know if a referral needs to be made to another facility. Nicole Montalvo [employer] KE[employer]
--- NOTE | 2022-08-13 13:48 | DIALYSIS ---
Hemodialysis x4 hours ended 45 mins early at 1315, surgical supply assistant here for patient, ran on a 3K bath, tolerated well, UF 3300mL, accessed via MICHAEL AVF using 15G needles, worked well, needles pulled post tx and stasis achieved without issue, post BP 152/54
--- NOTE | 2022-08-13 14:22 | PCM.PN.ID ---
Physical Exam Narrative OR today, HD this AM, no fever, no n/v/d Const alert and no apparent distress General Appearance: cooperative Resp normal air movement and clear to auscultation bilaterally Cardio regular rate and regular rhythm GI soft to palpation, non-tender and non-distended Skin Skin Narrative: L foot wrapped ID ID: Route of nutrition/ use of supplements: [] Nutritional Intake: [] IV Site: [] Cohen Catheter: [] Assessment & Plan Assessment/Plan (1) Gangrene of left foot: PLAN: Now s/p L TMA 08/05/[address] Lyn. Surg cxs so far with enterococcus and anaerobes, including (+) post-lavage cx. 1 of 2 bcx with enterococcus. Cont vanc/unasyn. At discharge, plan will be for 6 weeks total iv vanc dosed with HD and po flagyl, stop date 09/16/22 with weekly labs. Will follow (2) ESRD on dialysis: (3) Type 2 diabetes mellitus with diabetic polyneuropathy: (4) Peripheral vascular disease, unspecified:
[2022-08-13] MEDS: Bupivacaine 0.25% 30 ML Vial (15:40)
--- NOTE | 2022-08-13 15:47 | PCM.OPRPT ---
Problems Associated Problem List Diagnoses (1) Osteomyelitis of foot, left, acute: (2) Peripheral vascular disease, unspecified: (3) Type 2 diabetes mellitus with diabetic polyneuropathy: (4) Cellulitis of left foot: (5) Diabetic infection of left foot: Report of Operation Date of Procedure: 08/13/22 Pre-Operative Diagnosis: 1) Left foot diabetic foot infection with osteomyelitis in setting of resolved gas infection Post-Operative Diagnosis: 1) same Surgery/Procedure Performed:: 1) Surgical wound debridement down to and including level of bone, left foot Description of Surgical Findings:: residual amputation stump demonstrated some additional flap necrosis with underlying tissue breakdown upon opening of flap and debridement of aforementioned necrotic tissue, residual, bone and tissue appeared to be healthy and viable with clean bleeding edges again, the amputation was able to be closed partially with vessel loop closure gently closing the open lateral portion of the amputation site Surgeon: Earnest Lyn cabinet maker: None (Alan Nunez, PGYIII) Type of Anesthesia: Local MAC Special Medications: 20cc of 0.25% marcaine plain Specimen's removed: 1) left foot tissue for microbiology 2) Left foot metatarsal bone for clean margin biopsy Drains: none Estimated Blood Loss (mL): minimal Description of Procedure: Patient brought back into operating room and placed comfortably on the OR table in the supine position with all osseous prominences offloaded to prevent any compression neuropraxia. Well-padded left ankle tourniquet was applied. Left lower extremity scrubbed prepped draped using typical aseptic fashion. Tourniquet was not used throughout the duration of the course. 20 cc of quarter percent Marcaine plain performed a standard ankle block technique. Once cleared by anesthesia the previously partially closed amputation site was reopened by removing the stitches and examined there is some necrosis noted to the dorsal lateral aspect of the incision as well as some flap necrosis both of these were excised and there is a small plantar flap that remained which would allow for partial wound closure at the end of the case. Additional tissue necrosis was noted tracking along the flexor tendons this was debrided down to level of tendon and bone using combination of bone rongeurs and dissecting scissors and pickups. All this necrotic tissue was collected and sent to microbiology for further examination. The site was flushed with copious amounts of normal sterile saline using low-pressure pulse lavage. After pulse lavage the bone was then biopsied using bone rongeurs from the second and third metatarsals and sent to pathology for microbiology examination of these clean margins. Bone at this time appeared to be healthy and intact all residual tissue demonstrated nice healthy bleeding edge with granular appearance no residual evidence of tissue breakdown or purulent drainage noted at this time. Decision to partially closed the plantar medial flap to the dorsal medial aspect of the foot was made using simple interrupted 2-0 Prolene. Next to allow for some tissue approximation to limit the amount of recovery and wound healing a complex wound closure was performed along the proximal medial plantar skin incision all extending distal lateral plantar into the dorsal foot was performed using the vessel loop closure with red Vesseloops and a stapler. This vessel loop was crisscross across the wound being secured with rock to allow for dynamic closure of the wound over time under minimal tension. Incision site was then dressed with iodoform packing and then Betadine paint 4 x 4's Kerlix ABD pads and additional Kerlix. No compression due to peripheral arterial disease. Patient tolerated procedure and anesthesia well apparent satisfactory condition. Patient was transferred to PACU vital signs stable vascular status intact. Patient will be transferred back to the floor for additional monitoring prior to discharge to a residential facility for prolonged nonweightbearing.
[2022-08-13] MEDS: Vancomycin IV 500 MG/100 ML BAG 100 MG IV (18:10)
--- NOTE | 2022-08-13 19:00 | NURSING ---
emergency documentation starting at this time
[2022-08-13] MEDS: Bumetanide 2 MG Tablet PO (20:27)
[2022-08-13] MEDS: MELATONIN 3 MG TABLET 6 MG PO (20:42)
[2022-08-13] MEDS: 0.9% Saline Lock 10 ML Syringe IV ×2 (20:42→21:30)
--- NOTE | 2022-08-13 20:49 | NURSING ---
decom blood glucose reading 163
[2022-08-13] MEDS: Insulin NPH Human 100 UNITS/ML PEN SC (20:50)
[2022-08-13] MEDS: Insulin Lispro 100 UNIT/ML INSULN.PEN SC (20:50)
[2022-08-13] MEDS: HYDROmorphone 0.5 MG/0.5 ML SYRINGE IV (21:30)
[2022-08-14 01:07] VITALS: BP 123/42; PULSE 79; RESP 18; TEMP 36.8; O2SAT 96
[2022-08-14] MEDS: HYDROmorphone 0.5 MG/0.5 ML SYRINGE IV ×6 (01:10→23:26)
[2022-08-14] MEDS: 0.9% Saline Lock 10 ML Syringe IV ×4 (01:10→23:27)
[2022-08-14 06:11] VITALS: BP 124/49; PULSE 72; RESP 18; TEMP 36.9; O2SAT 100
[2022-08-14] MEDS: Acetaminophen 500 MG Tablet 1000 MG PO ×3 (06:14→20:41)
[2022-08-14] MEDS: Levothyroxine 100 MCG Tablet 200 MCG PO (06:14)
[2022-08-14] MEDS: oxyCODONE 5 MG Tablet PO ×3 (06:15→17:52)
--- NOTE | 2022-08-14 06:29 | NURSING ---
dexcom blood glucose 164
[2022-08-14] MEDS: Insulin Lispro 100 UNIT/ML INSULN.PEN SC ×4 (06:30→20:39)
[2022-08-14 08:33] VITALS: BP 132/47; PULSE 73; RESP 18; TEMP 36.3; O2SAT 96
[2022-08-14] MEDS: Juven (unflavored) Packet 1 PACKET PO ×2 (08:46→16:30)
[2022-08-14] MEDS: Losartan Potassium 100 MG Tablet PO (08:47)
[2022-08-14] MEDS: Pantoprazole Sodium 40 MG Tablet PO (08:48)
[2022-08-14] MEDS: LINAGLIPTIN 5 MG TABLET PO (08:48)
[2022-08-14] MEDS: amLODIPine 10 MG Tablet PO (08:48)
[2022-08-14] MEDS: Folic Acid/Vitamin B Comp W-C 1 Capsule 1 CAP PO (08:48)
[2022-08-14] MEDS: Aspirin E.C. 81 MG Tablet PO (08:48)
[2022-08-14] MEDS: Bumetanide 2 MG Tablet PO ×2 (08:48→16:29)
[2022-08-14] MEDS: Ascorbic Acid 500 MG Tablet PO (08:48)
[2022-08-14] MEDS: Lidocaine 5% Patch 1 PATCH TOPICAL (08:49)
[2022-08-14 09:29] LABS: Absolute Lymphocyte Count 0.88 X10^3/uL (0.83-4.51); Absolute Neutrophil Count 12.1 X10^3/uL (2.0-7.7); Basophil# 0.13 X10^3/uL; Basophil% 0.9 % (0-1); Eosinophil# 0.43 X10^3/uL; Eosinophils% 2.9 % (0-5); Hematocrit 21.1 % (40-54); Hemoglobin 6.9 g/dL (13.0-16.5); Lymphocyte # 0.88 X10^3/ul (0.83-4.51); Lymphocyte % 5.8 % (19-41); Mean Corp Hgb Conc 32.7 g/dL (32-36); Mean Corpuscular Hgb 31.2 pg (27.0-32.0); Mean Corpuscular Volume 95.5 fL (80-94); Mean Platelet Vol. 10.2 fl (6.2-12.0); Monocyte# 1.27 X10^3/uL; Monocyte% 8.4 % (0-10); NRBC Flagged by Analyzer 0 % (0-5); Neutrophil # 12.12 X10^3/uL (2.7-7.7); Neutrophil % 80.4 % (47-70); Platelet Count 304 K/mm3 (150-450); RBC Distribution Width CV 14.9 % (11.6-14.6); RBC Distribution Width SD 50.2 fl (35.1-43.9); Red Blood Count 2.21 M/mm3 (4.6-6.2); White Blood Count 15.1 K/mm3 (4.4-11.0)
[2022-08-14] MEDS: Menthol/Lanolin/Calamine/Znox 113 GM Tube 1 APPLIC TOPICAL (12:39)
[2022-08-14 15:48] VITALS: BP 126/42; PULSE 70; RESP 18; TEMP 36.4; O2SAT 99
--- NOTE | 2022-08-14 17:00 | CASEMGMT ---
Social Work Note SW attempted to meet with patient, however, patient was sleeping. SW met with patient and introduced herself and role as [facility] Competitive Athlete. Patient in agreement to speak with SW. SW inquired about discharge plan and patient's first choice. Patient explained he was interested in [facility], however, patient feels it would be easier to continue with [facility] because they can meet patient's need. SW explained she would update [facility] that they care FOC. Patient then inquired about discharge plan from SNF, explaining he is homeless and would need housing assistance. Patient reports he was on a list for services with [facility] but was removed from the list due to not following through. SW provided patient with [facility] resource list and information on [facility]. SW inquired about patient's interest with a referral for senior copy center specialist with [facility], patient in agreement with referral. Patient was receptive towards information and reports his brother is his main support and will assist. No other needs voiced. Updated sent via [employer] and told [facility] if FOC. Referral for [employer] Police Officer sent to Angela Alan with [facility]. Plan: [facility] when medically ready Leanne LEIVA, KENA
--- NOTE | 2022-08-14 18:02 | PN.HOSP_ITS ---
Reason for Visit Reason for Visit: Diagnoses Gas gangrene (08/05/22) Acute posthemorrhagic anemia (08/05/22) Type 2 diabetes mellitus with diabetic polyneuropathy (08/05/22) Type 2 diabetes mellitus with other skin complications (08/05/22) Peripheral vascular disease, unspecified (08/05/22) Gangrene, not elsewhere classified (08/05/22) Cellulitis of left lower limb (08/05/22) Local infection of the skin and subcutaneous tissue, unspecified (08/05/22) Other acute osteomyelitis, left ankle and foot (08/05/22) End stage renal disease (08/05/22) Bacteremia (08/05/22) Dependence on renal dialysis (08/05/22) Subjective Subjective Patient was seen and examined today, he requested that his orthopedic surgeon see him in the hospital to check on his right shoulder patient suffered a severe fracture of the right humerus and was seeing Dr. Merida as an outpatient, I contacted Dr. Merida and he stated he was not on-call this weekend and that he would advise to refrain from any vigorous physical therapy on his right shoulder and do pendulum drops of his arm while he is standing and rotating his trunk from side to side. I relayed this to the patient. Patient's hemoglobin this morning was 6.7, I have elected to transfuse the patient 1 unit of packed red blood cells Objective Data Objective Data Vital Signs: Vital Signs Temp Pulse Resp BP Pulse Ox O2 Del Method O2 Flow Rate 97.6 F L 70 18 126/42 H 99 Room Air 2 08/14/22 15:48 08/14/22 15:48 08/14/22 15:48 08/14/22 15:48 08/14/22 15:48 08/14/22 15:48 08/05/22 22:16 Oxygen Flow Rate (L/min) 2 Oxygen Delivery Method Room Air Weight: 94 kg Body Mass Index (BMI) 29.0 Intake & Output: Intake and Output for Last 24 Hours 08/12/22 08/13/22 08/14/22 23:59 23:59 23:59 Intake Total 1224 / 1224 416 / 416 1112 / 1112 Output Total 0 / 0 3300 / 3300 0 / 0 Balance 1224 / 1224 -2884 / -2884 1112 / 1112 Lab / Micro Data Result Diagrams: 08/14/22 06:01 08/13/22 05:45 Labs: Laboratory Results - last 24 hr 08/14/22 06:01: C-React Prot Ext Range 74.60 H 08/14/22 06:01: WBC 15.1 H, RBC 2.21 L, Hgb 6.9 L, Hct 21.1 L, MCV 95.5 H, MCH 31.2, MCHC 32.7, RDW Std Deviation 50.2 H, RDW Coeff of [place] 14.9 H, Plt Count 304, MPV 10.2, Immature Gran % (Auto) 1.600 H, Neut % (Auto) 80.4 H, Lymph % (A uto) 5.8 L, [place] % (Auto) 8.4, Eos % (Auto) 2.9, Baso % (Auto) 0.9, Absolute Neuts (auto) 12.1 H, Absolute Lymphs (auto) 0.88, Nucleated RBC % 0 Micro: Microbiology 08/13/22 15:15 Bone - Left Foot Gram Stain - Final 08/13/22 15:15 Bone - Left Foot Wound Culture - Preliminary No growth-Final to follow 08/13/22 15:20 Tissue - Left Foot Gram Stain - Final 08/13/22 15:20 Tissue - Left Foot Wound Culture - Preliminary No growth-Final to follow 08/08/22 10:50 Blood Culture (Wb) - Anticubital Right Blood Culture - Final No growth in 5 days. 08/08/22 10:30 Blood Culture (Wb) - Right Forearm Blood Culture - Final No growth in 5 days. 08/05/22 18:53 Wound - Left Foot Gram Stain - Final 08/05/22 18:53 Wound - Left Foot Wound Culture - Final Enterococcus faecalis 08/05/22 18:53 Wound - Left Foot Anaerobic Culture - Final Bacteroides fragilis Anaerobic cocci 08/05/22 18:53 Wound - Left Foot Gram Stain - Final 08/05/22 18:53 Wound - Left Foot Wound Culture - Final Enterococcus faecalis 08/05/22 18:53 Wound - Left Foot Anaerobic Culture - Final Bacteroides fragilis Anaerobic cocci 08/05/22 18:53 Wound - Left Foot Gram Stain - Final 08/05/22 18:53 Wound - Left Foot Wound Culture - Final Enterococcus faecalis 08/05/22 18:53 Wound - Left Foot Anaerobic Culture - Final Bacteroides fragilis Anaerobic cocci 08/05/22 Unknown Blood Culture (Wb) - Right Hand Blood Culture - Final Enterococcus faecalis 08/05/22 14:30 Blood Culture (Wb) - Right Hand Blood Culture - Final No growth in 5 days. 08/05/22 14:35 Wound - Toe Gram Stain - Final 08/05/22 14:35 Wound - Toe Wound Culture - Final Enterococcus faecalis Physical Exam Const alert, oriented x3, no apparent distress and healthy appearing General Appearance: cooperative, well kempt and well developed Orientation / Consciousness: awake, oriented to person, oriented to place and oriented to time HEENT normocephalic and moist oral mucous membranes Eyes PERRL, EOMs intact bilaterally and conjunctivae normal Neck supple, no JVD, thyroid normal and no carotid bruits General: trachea midline Resp normal respiratory effort, no retractions, no use of accessory muscles and clear to auscultation bilaterally Auscultation: Negative for rales, rhonchi or wheezes Cardio regular rate, regular rhythm, S1 normal heart sound, S2 normal heart sound, no murmurs, no rub and no gallops GI normal to inspection, nondistended, normoactive bowel sounds, soft to palpation, non-tender and non-distended Extremity Extremity Narrative: Patient's left foot is wrapped with surgical dressing, this was not removed for examination, patient has limited range of motion in his right shoulder due to a recent fracture Neuro oriented x3, CN's II-XII intact bilaterally, no focal motor deficits and no sensory deficits noted Sensorium / Orientation: awake and alert Speech: speech normal Psych affect normal Assessment & Plan Assessment/Plan (1) Osteomyelitis of foot, left, acute: PLAN: Plan 1. Gangrene of the left foot secondary to Enterococcus and Bacteroides fragilis in a patient with known diabetic neuropathy-continue Unasyn and vancomycin, ID is participating in his care #2 type 2 diabetes-continue to monitor blood sugars, sliding scale insulin as needed #3 anemia of chronic disease-patient will be transfused 1 unit of packed red blood cells, CBC will be rechecked #4 end-stage renal disease on dialysis-patient's next dialysis day is Tuesday #5 peripheral vascular disease-secondary to type 2 diabetes, this will complicate care, medical course, recovery, and prognosis, patient is on antiplatelet therapy with aspirin #6 hypothyroidism-patient is on Synthroid #7 essential hypertension-patient will remain on his present medications #8 recent right humerus fracture-again patient will not be able to have vigorous physical therapy on the shoulder at this time #9 bacteremia with Enterococcus-continue present antibiotics per direction of ID Total clinical time spent by myself addressing the patient's medical issues, reviewing all the data, and collaborating with patient's care team: 35-minutes Charges/Coding Visit Charges Inpatient E&M: 24505 Subs Hosp L2
--- NOTE | 2022-08-14 20:37 | NURSING ---
Dexacom blood glucose 184.
[2022-08-14] MEDS: Insulin NPH Human 100 UNITS/ML PEN SC (20:40)
[2022-08-14] MEDS: MELATONIN 3 MG TABLET 6 MG PO (20:41)
[2022-08-14 20:54] VITALS: BP 118/46; PULSE 76; RESP 16; TEMP 36.5; O2SAT 99
[2022-08-14 23:08] VITALS: BP 117/37; PULSE 71; RESP 18; TEMP 36.4; O2SAT 97
[2022-08-15] VITALS (8 sets, daily range): BP systolic 102–132; BP diastolic 27–66; PULSE 71–93; RESP 16–18; TEMP 36.3–36.8; O2SAT 95–100; BMI 28.0
[2022-08-15] MEDS: oxyCODONE 5 MG Tablet PO ×3 (00:39→16:56)
[2022-08-15] MEDS: HYDROmorphone 0.5 MG/0.5 ML SYRINGE IV ×5 (02:47→22:51)
[2022-08-15 05:26] LABS: Absolute Lymphocyte Count 0.89 X10^3/uL (0.83-4.51); Absolute Neutrophil Count 11.8 X10^3/uL (2.0-7.7); Basophil# 0.16 X10^3/uL; Basophil% 1.1 % (0-1); Eosinophil# 0.68 X10^3/uL; Eosinophils% 4.5 % (0-5); Hematocrit 23.3 % (40-54); Hemoglobin 7.4 g/dL (13.0-16.5); Lymphocyte # 0.89 X10^3/ul (0.83-4.51); Lymphocyte % 5.9 % (19-41); Mean Corp Hgb Conc 31.8 g/dL (32-36); Mean Corpuscular Hgb 30.8 pg (27.0-32.0); Mean Corpuscular Volume 97.1 fL (80-94); Monocyte# 1.42 X10^3/uL; Monocyte% 9.4 % (0-10); NRBC Flagged by Analyzer 0 % (0-5); Neutrophil # 11.75 X10^3/uL (2.7-7.7); Neutrophil % 77.3 % (47-70); Platelet Count 293 K/mm3 (150-450); RBC Distribution Width CV 14.8 % (11.6-14.6); RBC Distribution Width SD 51.8 fl (35.1-43.9); White Blood Count 15.2 K/mm3 (4.4-11.0)
--- NOTE | 2022-08-15 06:39 | NURSING ---
Dexacom blood glucose check 175
[2022-08-15] MEDS: Acetaminophen 500 MG Tablet 1000 MG PO ×3 (06:42→22:41)
[2022-08-15] MEDS: Insulin Lispro 100 UNIT/ML INSULN.PEN SC ×4 (06:42→22:40)
[2022-08-15] MEDS: Levothyroxine 100 MCG Tablet 200 MCG PO (06:42)
[2022-08-15] MEDS: 0.9% Saline Lock 10 ML Syringe IV ×3 (06:44→19:58)
[2022-08-15] MEDS: Menthol/Lanolin/Calamine/Znox 113 GM Tube 1 APPLIC TOPICAL ×2 (06:49→14:59)
[2022-08-15] MEDS: Losartan Potassium 100 MG Tablet PO (09:05)
[2022-08-15] MEDS: Pantoprazole Sodium 40 MG Tablet PO (09:05)
[2022-08-15] MEDS: LINAGLIPTIN 5 MG TABLET PO (09:05)
[2022-08-15] MEDS: Aspirin E.C. 81 MG Tablet PO (09:05)
[2022-08-15] MEDS: Folic Acid/Vitamin B Comp W-C 1 Capsule 1 CAP PO (09:05)
[2022-08-15] MEDS: Ascorbic Acid 500 MG Tablet PO (09:05)
[2022-08-15] MEDS: Lidocaine 5% Patch 1 PATCH TOPICAL (09:06)
[2022-08-15] MEDS: Bumetanide 2 MG Tablet PO ×2 (09:06→16:52)
[2022-08-15] MEDS: amLODIPine 10 MG Tablet PO (09:06)
[2022-08-15] MEDS: Juven (unflavored) Packet 1 PACKET PO ×2 (09:06→16:52)
--- NOTE | 2022-08-15 12:11 | PN_ITS ---
Subjective Subjective 57-year-old male seen postop status post left foot wound debridement. Patient denies constitutional symptoms. Patient had some bleeding through the dressing and subsequently was transfused 1 unit overnight. Patient notes some pain to surgical site controlled at current. No other complaints. Objective Data Objective Data Vital Signs: Vital Signs Temp Pulse Resp BP Pulse Ox O2 Del Method O2 Flow Rate 97.6 F L 71 16 124/32 H 100 Room Air 2 08/15/22 08:49 08/15/22 08:49 08/15/22 08:49 08/15/22 08:49 08/15/22 08:49 08/15/22 08:53 08/05/22 22:16 Oxygen Flow Rate (L/min) 2 Oxygen Delivery Method Room Air Weight: 90.9 kg Body Mass Index (BMI) 28.0 Intake & Output: Intake and Output for Last 24 Hours 08/13/22 08/14/22 08/15/22 23:59 23:59 23:59 Intake Total 416 / 416 1244 / 1484 1547 / 1547 Output Total 3300 / 3300 0 / 0 Balance -2884 / -2884 1244 / 1484 1547 / 1547 Lab / Micro Data Result Diagrams: 08/15/22 04:20 08/13/22 05:45 Labs: Laboratory Results - last 24 hr 08/14/22 18:30: Blood Type A POSITIVE, Antibody Screen NEGATIVE, Crossmatch See Detail 08/15/22 04:20: C-React Prot Ext Range 67.90 H 08/15/22 04:20: WBC 15.2 H, RBC 2.40 L, Hgb 7.4 L, Hct 23.3 L, MCV 97.1 H, MCH 30.8, MCHC 31.8 L, RDW Std Deviation 51.8 H, RDW Coeff of Glen 14.8 H, Plt Count 293, MPV 10.0, Immature Gran % (Auto) 1.800 H, Neut % (Auto) 77.3 H, Lymph % (Auto) 5.9 L, [place] % (Auto) 9.4, Eos % (Auto) 4.5, Baso % (Auto) 1.1 H, Absolute Neuts (auto) 11.8 H, Absolute Lymphs (auto) 0.89, Nucleated RBC % 0 Micro: Microbiology 08/13/22 15:20 Tissue - Left Foot Gram Stain - Final 08/13/22 15:20 Tissue - Left Foot Wound Culture - Preliminary GPC Poss Enterococcus sp 08/13/22 15:15 Bone - Left Foot Gram Stain - Final 08/13/22 15:15 Bone - Left Foot Wound Culture - Preliminary No growth-Final to follow 08/08/22 10:50 Blood Culture (Wb) - Anticubital Right Blood Culture - Final No growth in 5 days. 08/08/22 10:30 Blood Culture (Wb) - Right Forearm Blood Culture - Final No growth in 5 days. 08/05/22 18:53 Wound - Left Foot Gram Stain - Final 08/05/22 18:53 Wound - Left Foot Wound Culture - Final Enterococcus faecalis 08/05/22 18:53 Wound - Left Foot Anaerobic Culture - Final Bacteroides fragilis Anaerobic cocci 08/05/22 18:53 Wound - Left Foot Gram Stain - Final 08/05/22 18:53 Wound - Left Foot Wound Culture - Final Enterococcus faecalis 08/05/22 18:53 Wound - Left Foot Anaerobic Culture - Final Bacteroides fragilis Anaerobic cocci 08/05/22 18:53 Wound - Left Foot Gram Stain - Final 08/05/22 18:53 Wound - Left Foot Wound Culture - Final Enterococcus faecalis 08/05/22 18:53 Wound - Left Foot Anaerobic Culture - Final Bacteroides fragilis Anaerobic cocci 08/05/22 Unknown Blood Culture (Wb) - Right Hand Blood Culture - Final Enterococcus faecalis 08/05/22 14:30 Blood Culture (Wb) - Right Hand Blood Culture - Final No growth in 5 days. 08/05/22 14:35 Wound - Toe Gram Stain - Final 08/05/22 14:35 Wound - Toe Wound Culture - Final Enterococcus faecalis Physical Exam Narrative Neurovascular status unchanged. Full-thickness wound down to level level of metatarsal bones left foot demonstrates nice healthy base. There is intact sutures to the plantar medial flap with a plantar lateral ulceration extending to the proximal plantar medial surface this is down to level of metatarsal bone. There is moderate sanguinous drainage today. No active bleeders noted. Musculoskeletal left transmetatarsal amputation noted. No signs of DVT Assessment & Plan Assessment/Plan (1) Osteomyelitis of foot, left, acute: PLAN: Exam performed. White count still 15. CRP down trended to Sub 70. Patient vitally stable. Patient went received 1 unit PRBC overnight secondary to hemoglobin 6.9 Wound site examined flushed with copious amounts of normal sterile saline and r edressed with Betadine wet-to-dry overlying dry sterile dressing without compression. Patient should continue to keep heels offloaded prevent any pressure ulcerations. Patient will remain nonweightbearing to left lower extremity. Continue antibiotics per ID recommendation. Patient will likely discharge sometime next week with follow-up with me weekly. Discussed with patient in detail the option of below-knee amputation versus wound care. Discussed that below-knee amputation may allow for earlier return to function pending healing. Patient wishes to maintain his limb and pursue limb salvage via wound care. I discussed that it may take up to 6 months for this wound to heal with the patient focusing on maintaining nonweightbearing, following up in clinic, maintain blood sugar, maintaining adequate nutritional status. Patient currently receiving Fernando. (2) ESRD (end stage renal disease): (3) Type 2 diabetes mellitus with diabetic polyneuropathy: (4) Diabetic infection of left foot:
[2022-08-15] MEDS: Senna/Docusate Sodium 1 Tablet 2 TABLET PO ×2 (12:23→22:46)
--- NOTE | 2022-08-15 14:27 | PN.HOSP_ITS ---
Reason for Visit Reason for Visit: Diagnoses Gas gangrene (08/05/22) Acute posthemorrhagic anemia (08/05/22) Type 2 diabetes mellitus with diabetic polyneuropathy (08/05/22) Type 2 diabetes mellitus with other skin complications (08/05/22) Peripheral vascular disease, unspecified (08/05/22) Gangrene, not elsewhere classified (08/05/22) Cellulitis of left lower limb (08/05/22) Local infection of the skin and subcutaneous tissue, unspecified (08/05/22) Other acute osteomyelitis, left ankle and foot (08/05/22) End stage renal disease (08/05/22) Bacteremia (08/05/22) Dependence on renal dialysis (08/05/22) Subjective Subjective Patient was seen and examined today, his white count remained stable at this point at 15.2, hemoglobin today was 7.4, patient is due for dialysis again tomorrow. Objective Data Objective Data Vital Signs: Vital Signs Temp Pulse Resp BP Pulse Ox O2 Del Method O2 Flow Rate 97.6 F L 71 16 124/32 H 100 Room Air 2 08/15/22 08:49 08/15/22 08:49 08/15/22 08:49 08/15/22 08:49 08/15/22 08:49 08/15/22 08:53 08/05/22 22:16 Oxygen Flow Rate (L/min) 2 Oxygen Delivery Method Room Air Weight: 90.9 kg Body Mass Index (BMI) 28.0 Intake & Output: Intake and Output for Last 24 Hours 08/13/22 08/14/22 08/15/22 23:59 23:59 23:59 Intake Total 416 / 416 1244 / 1484 1547 / 1547 Output Total 3300 / 3300 0 / 0 Balance -2884 / -2884 1244 / 1484 1547 / 1547 Lab / Micro Data Result Diagrams: 08/15/22 04:20 08/13/22 05:45 Labs: Laboratory Results - last 24 hr 08/14/22 18:30: Blood Type A POSITIVE, Antibody Screen NEGATIVE, Crossmatch See Detail 08/15/22 04:20: C-React Prot Ext Range 67.90 H 08/15/22 04:20: WBC 15.2 H, RBC 2.40 L, Hgb 7.4 L, Hct 23.3 L, MCV 97.1 H, MCH 30.8, MCHC 31.8 L, RDW Std Deviation 51.8 H, RDW Coeff of [place] 14.8 H, Plt Count 293, MPV 10.0, Immature Gran % (Auto) 1.800 H, Neut % (Auto) 77.3 H, Lymph % (Auto) 5.9 L, [place] % (Auto) 9.4, Eos % (Auto) 4.5, Baso % (Auto) 1.1 H, Absolute Neuts (auto) 11.8 H, Absolute Lymphs (auto) 0.89, Nucleated RBC % 0 Micro: Microbiology 08/13/22 15:20 Tissue - Left Foot Gram Stain - Final 08/13/22 15:20 Tissue - Left Foot Wound Culture - Preliminary GPC Poss Enterococcus sp 08/13/22 15:15 Bone - Left Foot Gram Stain - Final 08/13/22 15:15 Bone - Left Foot Wound Culture - Preliminary No growth-Final to follow 08/08/22 10:50 Blood Culture (Wb) - Anticubital Right Blood Culture - Final No growth in 5 days. 08/08/22 10:30 Blood Culture (Wb) - Right Forearm Blood Culture - Final No growth in 5 days. 08/05/22 18:53 Wound - Left Foot Gram Stain - Final 08/05/22 18:53 Wound - Left Foot Wound Culture - Final Enterococcus faecalis 08/05/22 18:53 Wound - Left Foot Anaerobic Culture - Final Bacteroides fragilis Anaerobic cocci 08/05/22 18:53 Wound - Left Foot Gram Stain - Final 08/05/22 18:53 Wound - Left Foot Wound Culture - Final Enterococcus faecalis 08/05/22 18:53 Wound - Left Foot Anaerobic Culture - Final Bacteroides fragilis Anaerobic cocci 08/05/22 18:53 Wound - Left Foot Gram Stain - Final 08/05/22 18:53 Wound - Left Foot Wound Culture - Final Enterococcus faecalis 08/05/22 18:53 Wound - Left Foot Anaerobic Culture - Final Bacteroides fragilis Anaerobic cocci 08/05/22 Unknown Blood Culture (Wb) - Right Hand Blood Culture - Final Enterococcus faecalis 08/05/22 14:30 Blood Culture (Wb) - Right Hand Blood Culture - Final No growth in 5 days. 08/05/22 14:35 Wound - Toe Gram Stain - Final 08/05/22 14:35 Wound - Toe Wound Culture - Final Enterococcus faecalis Physical Exam Narrative alert, oriented x3, no apparent distress and healthy appearing General Appearance: cooperative, well kempt and well developed Orientation / Consciousness: awake, oriented to person, oriented to place and oriented to time HEENT normocephalic and moist oral mucous membranes Eyes PERRL, EOMs intact bilaterally and conjunctivae normal Neck supple, no JVD, thyroid normal and no carotid bruits General: trachea midline Resp normal respiratory effort, no retractions, no use of accessory muscles and clear to auscultation bilaterally Auscultation: Negative for rales, rhonchi or wheezes Cardio regular rate, regular rhythm, S1 normal heart sound, S2 normal heart sound, no murmurs, no rub and no gallops GI normal to inspection, nondistended, normoactive bowel sounds, soft to palpation, non-tender and non-distended Extremity Extremity Narrative: Patient's left foot is wrapped with surgical dressing, this was not removed for examination, patient has limited range of motion in his right shoulder due to a recent fracture Neuro oriented x3, CN's II-XII intact bilaterally, no focal motor deficits and no sensory deficits noted Sensorium / Orientation: awake and alert Speech: speech normal Psych affect normal Assessment & Plan Assessment/Plan (1) Gangrene of left foot: (2) Osteomyelitis of foot, left, acute: PLAN: Plan 1. Gangrene of the left foot secondary to Enterococcus and Bacteroides fragilis in a patient with known diabetic neuropathy-continue Unasyn and vancomycin, ID is participating in his care #2 type 2 diabetes-continue to monitor blood sugars, sliding scale insulin as needed #3 anemia of chronic disease-patient's hemoglobin today is improved, I do not think he needs any more blood transfused at this time. #4 end-stage renal disease on dialysis-patient's next dialysis day is Tuesday #5 peripheral vascular disease-secondary to type 2 diabetes, this will complicate care, medical course, recovery, and prognosis, patient is on antiplatelet therapy with aspirin #6 hypothyroidism-patient is on Synthroid #7 essential hypertension-patient will remain on his present medications #8 recent right humerus fracture-again patient will not be able to have vigorous physical therapy on the shoulder at this time #9 bacteremia with Enterococcus-continue present antibiotics per direction of ID Total clinical time spent by myself addressing the patient's medical issues, reviewing all the data, and collaborating with patient's care team: 36-minutes Charges/Coding Visit Charges Inpatient E&M: 85721 Subs Hosp L2
--- NOTE | 2022-08-15 22:36 | NURSING ---
Dexacom blood sugar was 164.
[2022-08-15] MEDS: Insulin NPH Human 100 UNITS/ML PEN SC (22:40)
[2022-08-15] MEDS: MELATONIN 3 MG TABLET 6 MG PO (22:41)
[2022-08-16 05:21] VITALS: BP 136/53; PULSE 73; RESP 16; TEMP 36.6; O2SAT 97
[2022-08-16] MEDS: Acetaminophen 500 MG Tablet 1000 MG PO ×2 (05:22→20:50)
[2022-08-16] MEDS: Levothyroxine 100 MCG Tablet 200 MCG PO (05:22)
[2022-08-16] MEDS: 0.9% Saline Lock 10 ML Syringe IV ×3 (05:23→21:54)
[2022-08-16] MEDS: HYDROmorphone 0.5 MG/0.5 ML SYRINGE IV (05:23)
[2022-08-16] MEDS: Menthol/Lanolin/Calamine/Znox 113 GM Tube 1 APPLIC TOPICAL ×2 (05:23→20:50)
[2022-08-16 05:33] VITALS: BMI 28.1
--- NOTE | 2022-08-16 06:38 | NURSING ---
Dexacom blood glucose was 112
[2022-08-16 06:49] LABS: Vancomycin, Random Level 15.4 ug/mL (0.0-15.0)
--- NOTE | 2022-08-16 07:18 | PCM.RX.CS ---
Consult Pharmacy has been consulted to manage selected antiobiotic: Vancomycin Type of Consult: Follow-up Prior Doses of Antibiotics Received/Current Regimen: 08/05/22 1500MG X1 08/06/22 750MG X1 08/07/22 750MG X 1 08/11/22 [id number] Pre HD 08/13/22 [id number] Pre HD 08/16/22 500mg x1 Pre HD Labs: Sodium 134 mmol/L (136-145) L 08/13/22 05:45 Potassium 4.0 mmol/L (3.5-5.1) 08/13/22 05:45 Chloride 97 mmol/L (98-107) L 08/13/22 05:45 Carbon Dioxide 27.0 mmol/L (21.0-32.0) 08/13/22 05:45 Anion Gap 10 (5-15) 08/13/22 05:45 BUN 60 mg/dL (7-18) H 08/13/22 05:45 Creatinine 4.20 mg/dL (0.70-1.30) H 08/13/22 05:45 Est GFR (MDRD) Af Amer 19 mL/min (>60) L 08/13/22 05:45 Est GFR (MDRD) Non-Af 16 mL/min (>60) L 08/13/22 05:45 BUN/Creatinine Ratio 14.3 RATIO (10-20) 08/13/22 05:45 Glucose 127 mg/dL (74-106) H 08/13/22 05:45 Random Vancomycin 15.4 ug/mL (0.0-15.0) H 08/16/22 05:35 Microbiology: Microbiology 08/13/22 15:20 Tissue - Left Foot Gram Stain - Final 08/13/22 15:20 Tissue - Left Foot Wound Culture - Preliminary GPC Poss Enterococcus sp 08/13/22 15:15 Bone - Left Foot Gram Stain - Final 08/13/22 15:15 Bone - Left Foot Wound Culture - Preliminary No growth-Final to follow 08/08/22 10:50 Blood Culture (Wb) - Anticubital Right Blood Culture - Final No growth in 5 days. 08/08/22 10:30 Blood Culture (Wb) - Right Forearm Blood Culture - Final No growth in 5 days. 08/05/22 18:53 Wound - Left Foot Gram Stain - Final 08/05/22 18:53 Wound - Left Foot Wound Culture - Final Enterococcus faecalis 08/05/22 18:53 Wound - Left Foot Anaerobic Culture - Final Bacteroides fragilis Anaerobic cocci 08/05/22 18:53 Wound - Left Foot Gram Stain - Final 08/05/22 18:53 Wound - Left Foot Wound Culture - Final Enterococcus faecalis 08/05/22 18:53 Wound - Left Foot Anaerobic Culture - Final Bacteroides fragilis Anaerobic cocci 08/05/22 18:53 Wound - Left Foot Gram Stain - Final 08/05/22 18:53 Wound - Left Foot Wound Culture - Final Enterococcus faecalis 08/05/22 18:53 Wound - Left Foot Anaerobic Culture - Final Bacteroides fragilis Anaerobic cocci 08/05/22 Unknown Blood Culture (Wb) - Right Hand Blood Culture - Final Enterococcus faecalis 08/05/22 14:30 Blood Culture (Wb) - Right Hand Blood Culture - Final No growth in 5 days. 08/05/22 14:35 Wound - Toe Gram Stain - Final 08/05/22 14:35 Wound - Toe Wound Culture - Final Enterococcus faecalis Weight used for dosin kg Goal Trough: 15-20 mcg/mL Pharmacy Plan for Drug Dosing: give 500mg x1 pre HD Pharmacy Service will continue to monitor and adjust dosing as required. Labs to be done on [date and time ordered]: vancomycin random level 08/18/22 @ 0600
[2022-08-16 08:44] VITALS: BP 116/54; PULSE 72; RESP 16; TEMP 36.6; O2SAT 100
[2022-08-16] MEDS: Lidocaine 5% Patch 1 PATCH TOPICAL (08:46)
[2022-08-16] MEDS: Juven (unflavored) Packet 1 PACKET PO ×2 (08:46→20:50)
--- NOTE | 2022-08-16 09:28 | CASEMGMT ---
JOSÉ ANTONIO sent updates to [facility] via [employer] and asked that they start pre-cert. Nicole Montalvo OCCUPATIONAL MEDICINE PHYSICIAN KENA
[2022-08-16] MEDS: Pantoprazole Sodium 40 MG Tablet PO (10:28)
[2022-08-16] MEDS: Calcitriol 0.25 MCG Capsule 1.25 MCG PO (10:29)
[2022-08-16] MEDS: Folic Acid/Vitamin B Comp W-C 1 Capsule 1 CAP PO (10:29)
[2022-08-16] MEDS: Senna/Docusate Sodium 1 Tablet 2 TABLET PO (10:29)
[2022-08-16] MEDS: Losartan Potassium 100 MG Tablet PO (10:29)
[2022-08-16] MEDS: Ascorbic Acid 500 MG Tablet PO (10:29)
[2022-08-16] MEDS: LINAGLIPTIN 5 MG TABLET PO (10:29)
[2022-08-16] MEDS: oxyCODONE 5 MG Tablet PO ×2 (10:29→20:49)
[2022-08-16] MEDS: Aspirin E.C. 81 MG Tablet PO (10:29)
[2022-08-16 10:35] LABS: Hematocrit 21.6 % (40-54); Hemoglobin 7.2 g/dL (13.0-16.5); Mean Corp Hgb Conc 33.3 g/dL (32-36); Mean Corpuscular Hgb 31.6 pg (27.0-32.0); Mean Corpuscular Volume 94.7 fL (80-94); Mean Platelet Vol. 9.9 fl (6.2-12.0); Platelet Count 281 K/mm3 (150-450); RBC Distribution Width CV 15.4 % (11.6-14.6); RBC Distribution Width SD 53.2 fl (35.1-43.9); Red Blood Count 2.28 M/mm3 (4.6-6.2); White Blood Count 15.6 K/mm3 (4.4-11.0)
[2022-08-16 11:11] LABS: Albumin, Serum 1.9 g/dL (3.2-5.0); BUN 63 mg/dL (7-18); BUN/Creat Ratio 11.4 RATIO (10-20); Calcium,Total 8.7 mg/dL (8.5-10.1); Chloride 99 mmol/L (98-107); Creatinine, Serum 5.55 mg/dL (0.70-1.30); EST Glomerular Filtration Rate 11 mL/min (>60); Est Glom Filt Rate - Afr Amer 14 mL/min (>60); Glucose 98 mg/dL (74-106); Phosphorus 5.1 mg/dL (2.5-4.9); Potassium 4.8 mmol/L (3.5-5.1); Sodium Level 132 mmol/L (136-145)
[2022-08-16 11:14] LABS: PTHIN 73.3 pg/mL (18.4-80.1)
[2022-08-16] MEDS: Lactulose 20 GM/30 ML UDC 30 GM PO (12:42)
[2022-08-16] MEDS: Epoetin Alfa epbx 10,000 UNITS/ML 10000 UNIT SC (12:42)
--- NOTE | 2022-08-16 12:55 | PN_ITS ---
Subjective Subjective No changes overnight. Objective Data Objective Data Vital Signs: Vital Signs Temp Pulse Resp BP Pulse Ox O2 Del Method O2 Flow Rate 97.8 F 72 16 116/54 L 100 Room Air 2 08/16/22 08:44 08/16/22 08:44 08/16/22 08:44 08/16/22 08:44 08/16/22 08:44 08/16/22 08:44 08/05/22 22:16 Oxygen Flow Rate (L/min) 2 Oxygen Delivery Method Room Air Weight: 91.3 kg Body Mass Index (BMI) 28.1 Intake & Output: Intake and Output for Last 24 Hours 08/14/22 08/15/22 08/16/22 23:59 23:59 23:59 Intake Total 1244 / 1484 1966 1284 / 1284 Output Total 0 / 0 0 / 0 0 / 0 Balance 1244 / 1484 1966 / 2206 1284 / 1284 Lab / Micro Data Result Diagrams: 08/16/22 05:35 08/16/22 05:35 Labs: Laboratory Results - last 24 hr 08/16/22 05:35: Random Vancomycin 15.4 H 08/16/22 05:35: C-React Prot Ext Range 66.50 H 08/16/22 05:35: WBC 15.6 H, RBC 2.28 L, Hgb 7.2 L, Hct 21.6 L, MCV 94.7 H, MCH 3 1.6, MCHC 33.3, RDW Std Deviation 53.2 H, RDW Coeff of Glen 15.4 H, Plt Count 281, MPV 9.9 08/16/22 05:35: Sodium 132 L, Potassium 4.8, Chloride 99, Carbon Dioxide 24.0, BUN 63 H, Creatinine 5.55 H, Estim Creat Clear Calc 14.80, Est GFR (MDRD) Af Amer 14 L, Est GFR (MDRD) Non-Af 11 L, BUN/Creatinine Ratio 11.4, Glucose 98, Calcium 8.7, Phosphorus 5.1 H, Albumin 1.9 L 08/16/22 05:35: PTH Intact 73.3 Micro: Microbiology 08/13/22 15:20 Tissue - Left Foot Gram Stain - Final 08/13/22 15:20 Tissue - Left Foot Wound Culture - Final Enterococcus faecalis 08/13/22 15:20 Tissue - Left Foot Anaerobic Culture - Preliminary 08/13/22 15:15 Bone - Left Foot Gram Stain - Final 08/13/22 15:15 Bone - Left Foot Wound Culture - Final No growth aerobically. 08/13/22 15:15 Bone - Left Foot Anaerobic Culture - Preliminary No growth in 48 hours. 08/08/22 10:50 Blood Culture (Wb) - Anticubital Right Blood Culture - Final No growth in 5 days. 08/08/22 10:30 Blood Culture (Wb) - Right Forearm Blood Culture - Final No growth in 5 days. 08/05/22 18:53 Wound - Left Foot Gram Stain - Final 08/05/22 18:53 Wound - Left Foot Wound Culture - Final Enterococcus faecalis 08/05/22 18:53 Wound - Left Foot Anaerobic Culture - Final Bacteroides fragilis Anaerobic cocci 08/05/22 18:53 Wound - Left Foot Gram Stain - Final 08/05/22 18:53 Wound - Left Foot Wound Culture - Final Enterococcus faecalis 08/05/22 18:53 Wound - Left Foot Anaerobic Culture - Final Bacteroides fragilis Anaerobic cocci 08/05/22 18:53 Wound - Left Foot Gram Stain - Final 08/05/22 18:53 Wound - Left Foot Wound Culture - Final Enterococcus faecalis 08/05/22 18:53 Wound - Left Foot Anaerobic Culture - Final Bacteroides fragilis Anaerobic cocci 08/05/22 Unknown Blood Culture (Wb) - Right Hand Blood Culture - Final Enterococcus faecalis 08/05/22 14:30 Blood Culture (Wb) - Right Hand Blood Culture - Final No growth in 5 days. 08/05/22 14:35 Wound - Toe Gram Stain - Final 08/05/22 14:35 Wound - Toe Wound Culture - Final Enterococcus faecalis Physical Exam Narrative Neurovascular status unchanged. Full-thickness wound down to level level of metatarsal bones left foot demonstrates nice healthy base. There is intact sutures to the plantar medial flap with a plantar lateral ulceration extending to the proximal plantar medial surface this is down to level of metatarsal bone. There is moderate sanguinous drainage today. No active bleeders noted. Musculoskeletal left transmetatarsal amputation noted. No signs of DVT Assessment & Plan Assessment/Plan (1) Osteomyelitis of foot, left, acute: PLAN: Exam performed. White count still 15. CRP down trended to Sub 70. Patient vitally stable. Wound site examined flushed with copious amounts of normal sterile saline and redressed with Betadine wet-to-dry overlying dry sterile dressing without compression. Patient should continue to keep heels offloaded prevent any pressure ulcerations. Patient will remain nonweightbearing to left lower extremity. Continue antibiotics per ID recommendation. Patient stable for discharge from my standpoint. If there are issues with recurrent infection to left lower extremity, patient's next option is BKA. At current the wound appears stable. (2) ESRD (end stage renal disease): (3) Type 2 diabetes mellitus with diabetic polyneuropathy: (4) Diabetic infection of left foot:
--- NOTE | 2022-08-16 13:18 | CASEMGMT ---
JOSÉ ANTONIO called [facility] regarding starting precert. Spoke with Eugenia in admissions at corporate office, . Eugenia requested dialysis records be faxed to [facility] in order to start precert and it must be sent by the hospital. Fax provided by Eugenia, , dialysis records faxed. Bria Higginbotham ASSOCIATE CIVIL ENGINEER, COPY CHIEF
--- NOTE | 2022-08-16 14:20 | CASEMGMT ---
JOSÉ ANTONIO received a voice mail from Raissa with [facility]. Raissa asked that JOSÉ ANTONIO send a demographics sheet. JOSÉ ANTONIO faxed a demographics sheet. JOSÉ ANTONIO also called Eugenia with [facility] and left her a voice mail requesting a return call. Nicole ESCUDERO
[2022-08-16 14:45] VITALS: BP 144/53; PULSE 73; RESP 14; TEMP 36.8; O2SAT 98
--- NOTE | 2022-08-16 15:09 | PCM.PN.ID ---
Physical Exam Narrative Feeling ok, no fever, no n/v/d. Foot doing well when dressing changed today. Const alert and no apparent distress Resp normal air movement and clear to auscultation bilaterally Cardio regular rate and regular rhythm GI soft to palpation, non-tender and non-distended Skin Skin Narrative: foot wrapped ID ID: Route of nutrition/ use of supplements: [] Nutritional Intake: [] IV Site: [] Cohen Catheter: [] Assessment & Plan Assessment/Plan (1) Gangrene of left foot: PLAN: Now s/p L TMA 08/05/[address] Lyn. Surg cxs so far with enterococcus and anaerobes, including (+) post-lavage cx. 1 of 2 bcx with enterococcus. Taken back to OR 08/13 for further I&D. Cont vanc/unasyn. At discharge, plan will be for 6 weeks total iv vanc dosed with HD and po flagyl, stop date 09/16/22 with weekly labs. Wbc stable. ID followup in 2 weeks. Will follow (2) ESRD on dialysis: (3) Type 2 diabetes mellitus with diabetic polyneuropathy: (4) Peripheral vascular disease, unspecified:
--- NOTE | 2022-08-16 15:47 | CASEMGMT ---
JOSÉ ANTONIO spoke with Drew from [facility]. Drew said they still need Hepatitis B total core, H&P, and TB clearance. JOSÉ ANTONIO explained to Drew that patient will be getting dialysis at a nursing facility. Drew was going to call [facility]. JOSÉ ANTONIO called Eugenia with [facility] and she said [facility] needs the information if patient was with a different dialysis company which he was. JOSÉ ANTONIO called [facility] and asked if they had the Hepatitis B total core and TB clearance. Leeanna was going to check and will get back to JOSÉ ANTONIO. Nicole Montalvo COURT RECORDER KENA
--- NOTE | 2022-08-16 19:00 | PN.HOSP_ITS ---
Reason for Visit Reason for Visit: Diagnoses Gas gangrene (08/05/22) Acute posthemorrhagic anemia (08/05/22) Type 2 diabetes mellitus with diabetic polyneuropathy (08/05/22) Type 2 diabetes mellitus with other skin complications (08/05/22) Peripheral vascular disease, unspecified (08/05/22) Gangrene, not elsewhere classified (08/05/22) Cellulitis of left lower limb (08/05/22) Local infection of the skin and subcutaneous tissue, unspecified (08/05/22) Other acute osteomyelitis, left ankle and foot (08/05/22) End stage renal disease (08/05/22) Bacteremia (08/05/22) Dependence on renal dialysis (08/05/22) Subjective Subjective Patient was seen and examined today, I talked briefly with podiatry about his care, he appears medically stable at this time, we are awaiting approval for him to go to a nursing home facility for inpatient rehab services. Objective Data Objective Data Vital Signs: Vital Signs Temp Pulse Resp BP Pulse Ox O2 Del Method O2 Flow Rate 98.2 F 73 14 144/53 H 98 Room Air 2 08/16/22 14:45 08/16/22 14:45 08/16/22 14:45 08/16/22 14:45 08/16/22 14:45 08/16/22 14:45 08/05/22 22:16 Oxygen Flow Rate (L/min) 2 Oxygen Delivery Method Room Air Weight: 91.3 kg Body Mass Index (BMI) 28.1 Intake & Output: Intake and Output for Last 24 Hours 08/14/22 08/15/22 08/16/22 23:59 23:59 23:59 Intake Total 1244 / 1484 1966 1604 / 1604 Output Total 0 / 0 0 / 0 0 / 0 Balance 1244 / 1484 1966 1604 / 1604 Lab / Micro Data Result Diagrams: 08/16/22 05:35 08/16/22 05:35 Labs: Laboratory Results - last 24 hr 08/16/22 05:35: Random Vancomycin 15.4 H 08/16/22 05:35: C-React Prot Ext Range 66.50 H 08/16/22 05:35: WBC 15.6 H, RBC 2.28 L, Hgb 7.2 L, Hct 21.6 L, MCV 94.7 H, MCH 31.6, MCHC 33.3, RDW Std Deviation 53.2 H, RDW Coeff of Glen 15.4 H, Plt Count 281, MPV 9.9 08/16/22 05:35: Sodium 132 L, Potassium 4.8, Chloride 99, Carbon Dioxide 24.0, BUN 63 H, Creatinine 5.55 H, Estim Creat Clear Calc 14.80, Est GFR (MDRD) Af Teena r 14 L, Est GFR (MDRD) Non-Af 11 L, BUN/Creatinine Ratio 11.4, Glucose 98, Calcium 8.7, Phosphorus 5.1 H, Albumin 1.9 L 08/16/22 05:35: PTH Intact 73.3 Micro: Microbiology 08/13/22 15:20 Tissue - Left Foot Gram Stain - Final 08/13/22 15:20 Tissue - Left Foot Wound Culture - Final Enterococcus faecalis 08/13/22 15:20 Tissue - Left Foot Anaerobic Culture - Preliminary 08/13/22 15:15 Bone - Left Foot Gram Stain - Final 08/13/22 15:15 Bone - Left Foot Wound Culture - Final No growth aerobically. 08/13/22 15:15 Bone - Left Foot Anaerobic Culture - Preliminary No growth in 48 hours. 08/08/22 10:50 Blood Culture (Wb) - Anticubital Right Blood Culture - Final No growth in 5 days. 08/08/22 10:30 Blood Culture (Wb) - Right Forearm Blood Culture - Final No growth in 5 days. 08/05/22 18:53 Wound - Left Foot Gram Stain - Final 08/05/22 18:53 Wound - Left Foot Wound Culture - Final Enterococcus faecalis 08/05/22 18:53 Wound - Left Foot Anaerobic Culture - Final Bacteroides fragilis Anaerobic cocci 08/05/22 18:53 Wound - Left Foot Gram Stain - Final 08/05/22 18:53 Wound - Left Foot Wound Culture - Final Enterococcus faecalis 08/05/22 18:53 Wound - Left Foot Anaerobic Culture - Final Bacteroides fragilis Anaerobic cocci 08/05/22 18:53 Wound - Left Foot Gram Stain - Final 08/05/22 18:53 Wound - Left Foot Wound Culture - Final Enterococcus faecalis 08/05/22 18:53 Wound - Left Foot Anaerobic Culture - Final Bacteroides fragilis Anaerobic cocci 08/05/22 Unknown Blood Culture (Wb) - Right Hand Blood Culture - Final Enterococcus faecalis 08/05/22 14:30 Blood Culture (Wb) - Right Hand Blood Culture - Final No growth in 5 days. 08/05/22 14:35 Wound - Toe Gram Stain - Final 08/05/22 14:35 Wound - Toe Wound Culture - Final Enterococcus faecalis Physical Exam Narrative alert, oriented x3, no apparent distress and healthy appearing General Appearance: cooperative, well kempt and well developed Orientation / Consciousness: awake, oriented to person, oriented to place and oriented to time HEENT normocephalic and moist oral mucous membranes Eyes PERRL, EOMs intact bilaterally and conjunctivae normal Neck supple, no JVD, thyroid normal and no carotid bruits General: trachea midline Resp normal respiratory effort, no retractions, no use of accessory muscles and clear to auscultation bilaterally Auscultation: Negative for rales, rhonchi or wheezes Cardio regular rate, regular rhythm, S1 normal heart sound, S2 normal heart sound, no murmurs, no rub and no gallops GI normal to inspection, nondistended, normoactive bowel sounds, soft to palpation, non-tender and non-distended Extremity Extremity Narrative: Patient's left foot is wrapped with surgical dressing, this was not removed for examination, patient has limited range of motion in his right shoulder due to a recent fracture Neuro oriented x3, CN's II-XII intact bilaterally, no focal motor deficits and no sensory deficits noted Sensorium / Orientation: awake and alert Speech: speech normal Psych affect normal Assessment & Plan Assessment/Plan (1) Gangrene of left foot: (2) Osteomyelitis of foot, left, acute: PLAN: Plan 1. Gangrene of the left foot secondary to Enterococcus and Bacteroides fragilis in a patient with known diabetic neuropathy-continue Unasyn and vancomycin, ID is participating in his care, we are currently awaiting for approval for the patient to go to a nursing home facility for inpatient rehab services #2 type 2 diabetes-continue to monitor blood sugars, sliding scale insulin as needed #3 anemia of chronic disease-patient's hemoglobin today is 7.2, CBC will be repeated tomorrow #4 end-stage renal disease on dialysis-patient's next dialysis day is Tuesday #5 peripheral vascular disease-secondary to type 2 diabetes, this will complicate care, medical course, recovery, and prognosis, patient is on antiplatelet therapy with aspirin #6 hypothyroidism-patient is on Synthroid #7 essential hypertension-patient will remain on his present medications #8 recent right humerus fracture-again patient will not be able to have vigorous physical therapy on the shoulder at this time #9 bacteremia with Enterococcus-continue present antibiotics per direction of ID Total clinical time spent by myself addressing the patient's medical issues, reviewing all the data, and collaborating with patient's care team: 37-minutes Charges/Coding Visit Charges Inpatient E&M: 00451 Subs Hosp L2
--- NOTE | 2022-08-16 20:07 | DIALYSIS ---
Hemodialysis completed x 4 hours. UF 3500. Hemostasis achieved arterial/venous site post manual hold x 10 minutes per site. Patient stable and alert. Report given to Terrell dominguez.
[2022-08-16 20:55] VITALS: BP 138/51; PULSE 86; RESP 18; TEMP 36.4; O2SAT 100
[2022-08-16] MEDS: Vancomycin IV 500 MG/100 ML BAG 100 MG IV (21:46)
[2022-08-16] MEDS: MELATONIN 3 MG TABLET 6 MG PO (21:48)
--- NOTE | 2022-08-16 21:48 | NURSING ---
BS checked w/ pt own dexacom, BS at 141.
[2022-08-16] MEDS: Insulin NPH Human 100 UNITS/ML PEN SC (21:52)
[2022-08-17] MEDS: HYDROmorphone 0.5 MG/0.5 ML SYRINGE IV ×5 (00:07→18:48)
[2022-08-17 03:20] VITALS: BP 132/53; PULSE 81; RESP 18; TEMP 36.4; O2SAT 97
[2022-08-17] MEDS: oxyCODONE 5 MG Tablet PO ×2 (03:31→22:23)
[2022-08-17] MEDS: Senna/Docusate Sodium 1 Tablet 2 TABLET PO (03:32)
[2022-08-17 06:00] VITALS: BMI 28.1
[2022-08-17] MEDS: Acetaminophen 500 MG Tablet 1000 MG PO ×3 (06:28→22:15)
[2022-08-17] MEDS: Levothyroxine 100 MCG Tablet 200 MCG PO (06:28)
[2022-08-17] MEDS: Menthol/Lanolin/Calamine/Znox 113 GM Tube 1 APPLIC TOPICAL ×3 (06:29→22:16)
[2022-08-17] MEDS: Insulin Lispro 100 UNIT/ML INSULN.PEN SC ×3 (06:30→22:15)
[2022-08-17] MEDS: 0.9% Saline Lock 10 ML Syringe IV ×3 (06:33→18:48)
--- NOTE | 2022-08-17 08:56 | CASEMGMT ---
JOSÉ ANTONIO received fax from [facility] with labs [facility] was requesting. JOSÉ ANTONIO faxed these results and H&P to [facility]. Nicole Montalvo INVESTIGATIONS CONSULTANT TITLE SUPERVISOR
[2022-08-17] MEDS: Juven (unflavored) Packet 1 PACKET PO ×2 (09:00→18:00)
[2022-08-17 09:20] VITALS: BP 129/48; PULSE 79; RESP 16; TEMP 36.7; O2SAT 100
--- NOTE | 2022-08-17 09:37 | PN.RENAL_ITS ---
Subjective Subjective doing well s/p debridement of left foot. Pain intermittent. Dialysis yesterday w/o incident. Request regular diet Objective Data Objective Data Vital Signs: Vital Signs Temp Pulse Resp BP Pulse Ox O2 Del Method O2 Flow Rate 97.6 F L 81 18 132/53 H 97 Room Air 2 08/17/22 03:20 08/17/22 03:20 08/17/22 03:20 08/17/22 03:20 08/17/22 03:20 08/17/22 03:20 08/05/22 22:16 Oxygen Flow Rate (L/min) 2 Oxygen Delivery Method Room Air Weight: 91.2 kg Body Mass Index (BMI) 28.1 Intake & Output: Intake and Output for Last 24 Hours 08/15/22 08/16/22 08/17/22 23:59 23:59 23:59 Intake Total 1966 1704 / 1704 112 / 112 Output Total 0 / 0 0 / 0 Balance 1966 170 / 1704 112 / 112 Lab / Micro Data Result Diagrams: 08/16/22 05:35 08/16/22 05:35 Labs: Laboratory Results - last 24 hr 08/16/22 05:35: WBC 15.6 H, RBC 2.28 L, Hgb 7.2 L, Hct 21.6 L, MCV 94.7 H, MCH 31.6, MCHC 33.3, RDW Std Deviation 53.2 H, RDW Coeff of Glen 15.4 H, Plt Count 281, MPV 9.9 08/16/22 05:35: Sodium 132 L, Potassium 4.8, Chloride 99, Carbon Dioxide 24.0, BUN 63 H, Creatinine 5.55 H, Estim Creat Clear Calc 14.80, Est GFR (MDRD) Af Teena r 14 L, Est GFR (MDRD) Non-Af 11 L, BUN/Creatinine Ratio 11.4, Glucose 98, Calcium 8.7, Phosphorus 5.1 H, Albumin 1.9 L 08/16/22 05:35: PTH Intact 73.3 Micro: Microbiology 08/13/22 15:20 Tissue - Left Foot Gram Stain - Final 08/13/22 15:20 Tissue - Left Foot Wound Culture - Final Enterococcus faecalis 08/13/22 15:20 Tissue - Left Foot Anaerobic Culture - Final No anaerobic bacteria isolated. 08/13/22 15:15 Bone - Left Foot Gram Stain - Final 08/13/22 15:15 Bone - Left Foot Wound Culture - Final No growth aerobically. 08/13/22 15:15 Bone - Left Foot Anaerobic Culture - Preliminary No growth in 48 hours. 08/08/22 10:50 Blood Culture (Wb) - Anticubital Right Blood Culture - Final No growth in 5 days. 08/08/22 10:30 Blood Culture (Wb) - Right Forearm Blood Culture - Final No growth in 5 days. 08/05/22 18:53 Wound - Left Foot Gram Stain - Final 08/05/22 18:53 Wound - Left Foot Wound Culture - Final Enterococcus faecalis 08/05/22 18:53 Wound - Left Foot Anaerobic Culture - Final Bacteroides fragilis Anaerobic cocci 08/05/22 18:53 Wound - Left Foot Gram Stain - Final 08/05/22 18:53 Wound - Left Foot Wound Culture - Final Enterococcus faecalis 08/05/22 18:53 Wound - Left Foot Anaerobic Culture - Final Bacteroides fragilis Anaerobic cocci 08/05/22 18:53 Wound - Left Foot Gram Stain - Final 08/05/22 18:53 Wound - Left Foot Wound Culture - Final Enterococcus faecalis 08/05/22 18:53 Wound - Left Foot Anaerobic Culture - Final Bacteroides fragilis Anaerobic cocci 08/05/22 Unknown Blood Culture (Wb) - Right Hand Blood Culture - Final Enterococcus faecalis 08/05/22 14:30 Blood Culture (Wb) - Right Hand Blood Culture - Final No growth in 5 days. 08/05/22 14:35 Wound - Toe Gram Stain - Final 08/05/22 14:35 Wound - Toe Wound Culture - Final Enterococcus faecalis Physical Exam Const alert and oriented x3 Resp clear to auscultation bilaterally Cardio regular rate GI non-tender and non-distended Auscultation: normoactive bowel sounds Extremity no clubbing, cyanosis or edema Psych cooperative Assessment & Plan Assessment/Plan (1) ESRD on dialysis: PLAN: dialysis MWF (2) Diabetic infection of left foot: PLAN: s/p TMA podiatry following (3) Acute blood loss anemia: PLAN: hgb 7.2g, PHILL therapy (4) Bacteremia: PLAN: iv antibx, ID following
[2022-08-17] MEDS: Aspirin E.C. 81 MG Tablet PO (09:45)
[2022-08-17] MEDS: Losartan Potassium 100 MG Tablet PO (09:45)
[2022-08-17] MEDS: LINAGLIPTIN 5 MG TABLET PO (09:45)
[2022-08-17] MEDS: Pantoprazole Sodium 40 MG Tablet PO (09:45)
[2022-08-17] MEDS: Folic Acid/Vitamin B Comp W-C 1 Capsule 1 CAP PO (09:45)
[2022-08-17] MEDS: Ascorbic Acid 500 MG Tablet PO (09:45)
[2022-08-17] MEDS: Lidocaine 5% Patch 1 PATCH TOPICAL (09:47)
[2022-08-17 10:31] LABS: Absolute Lymphocyte Count 0.83 X10^3/uL (0.83-4.51); Absolute Neutrophil Count 11.2 X10^3/uL (2.0-7.7); Basophil# 0.13 X10^3/uL; Basophil% 0.9 % (0-1); Eosinophil# 0.44 X10^3/uL; Eosinophils% 3.1 % (0-5); Hematocrit 21.2 % (40-54); Hemoglobin 6.9 g/dL (13.0-16.5); Lymphocyte # 0.83 X10^3/ul (0.83-4.51); Lymphocyte % 5.9 % (19-41); Mean Corp Hgb Conc 32.5 g/dL (32-36); Mean Corpuscular Hgb 30.8 pg (27.0-32.0); Mean Corpuscular Volume 94.6 fL (80-94); Mean Platelet Vol. 9.9 fl (6.2-12.0); Monocyte% 9.3 % (0-10); NRBC Flagged by Analyzer 0 % (0-5); Neutrophil # 11.19 X10^3/uL (2.7-7.7); Neutrophil % 79.9 % (47-70); Platelet Count 254 K/mm3 (150-450); RBC Distribution Width CV 15.6 % (11.6-14.6); RBC Distribution Width SD 53.9 fl (35.1-43.9); Red Blood Count 2.24 M/mm3 (4.6-6.2)
[2022-08-17 15:20] VITALS: BP 131/52; PULSE 80; RESP 18; TEMP 36.6; O2SAT 99
--- NOTE | 2022-08-17 16:24 | CASEMGMT ---
JOSÉ ANTONIO called Eugenia with [facility]. She gave JOSÉ ANTONIO the phone number for [facility] admissions ( ). JOSÉ ANTONIO called [facility] and was informed they still need a HepB Core and HepB surface antigen. These tests have been ordered. Nicole ESCUDERO
[2022-08-17 17:02] LABS: Iron 36 ug/dL (65-175)
--- NOTE | 2022-08-17 18:54 | PN.HOSP_ITS ---
Reason for Visit Reason for Visit: Diagnoses Gas gangrene (08/05/22) Acute posthemorrhagic anemia (08/05/22) Type 2 diabetes mellitus with diabetic polyneuropathy (08/05/22) Type 2 diabetes mellitus with other skin complications (08/05/22) Peripheral vascular disease, unspecified (08/05/22) Gangrene, not elsewhere classified (08/05/22) Cellulitis of left lower limb (08/05/22) Local infection of the skin and subcutaneous tissue, unspecified (08/05/22) Other acute osteomyelitis, left ankle and foot (08/05/22) End stage renal disease (08/05/22) Bacteremia (08/05/22) Dependence on renal dialysis (08/05/22) Subjective Subjective Patient was seen and examined today, his hemoglobin this morning was 6.9, I briefly talked with nephrology and I am going to transfuse the patient 2 units of packed red blood cells tomorrow with his dialysis. We are still awaiting approval for the patient to go to an extended care facility for inpatient rehab services. Objective Data Objective Data Vital Signs: Vital Signs Temp Pulse Resp BP Pulse Ox O2 Del Method O2 Flow Rate 97.9 F 80 18 131/52 H 99 Room Air 2 08/17/22 15:20 08/17/22 15:20 08/17/22 15:20 08/17/22 15:20 08/17/22 15:20 08/17/22 15:20 08/05/22 22:16 Oxygen Flow Rate (L/min) 2 Oxygen Delivery Method Room Air Weight: 91.2 kg Body Mass Index (BMI) 28.1 Intake & Output: Intake and Output for Last 24 Hours 08/15/22 08/16/22 08/17/22 23:59 23:59 23:59 Intake Total 1966 1704 / 1704 584 / 584 Output Total 0 / 0 0 / 0 Balance 1966 1704 / 1704 584 / 584 Lab / Micro Data Result Diagrams: 08/17/22 09:57 08/16/22 05:35 Labs: Laboratory Results - last 24 hr 08/17/22 09:57: WBC 14.0 H, RBC 2.24 L, Hgb 6.9 L, Hct 21.2 L, MCV 94.6 H, MCH 30.8, MCHC 32.5, RDW Std Deviation 53.9 H, RDW Coeff of [place] 15.6 H, Plt Count 254, MPV 9.9, Immature Gran % (Auto) 0.900, Neut % (Auto) 79.9 H, Lymph % (Auto) 5.9 L, [place] % (Auto) 9.3, Eos % (Auto) 3.1, Baso % (Auto) 0.9, Absolute Neuts (auto) 11.2 H, Absolute Lymphs (auto) 0.83, Nucleated RBC % 0 08/17/22 09:57: C-React Prot Ext Range 61.40 H 08/17/22 09:57: Iron 36 L 08/17/22 18:37: Crossmatch See Detail Micro: Microbiology 08/13/22 15:20 Tissue - Left Foot Gram Stain - Final 08/13/22 15:20 Tissue - Left Foot Wound Culture - Final Enterococcus faecalis 08/13/22 15:20 Tissue - Left Foot Anaerobic Culture - Final No anaerobic bacteria isolated. 08/13/22 15:15 Bone - Left Foot Gram Stain - Final 08/13/22 15:15 Bone - Left Foot Wound Culture - Final No growth aerobically. 08/13/22 15:15 Bone - Left Foot Anaerobic Culture - Preliminary No growth in 48 hours. 08/08/22 10:50 Blood Culture (Wb) - Anticubital Right Blood Culture - Final No growth in 5 days. 08/08/22 10:30 Blood Culture (Wb) - Right Forearm Blood Culture - Final No growth in 5 days. 08/05/22 18:53 Wound - Left Foot Gram Stain - Final 08/05/22 18:53 Wound - Left Foot Wound Culture - Final Enterococcus faecalis 08/05/22 18:53 Wound - Left Foot Anaerobic Culture - Final Bacteroides fragilis Anaerobic cocci 08/05/22 18:53 Wound - Left Foot Gram Stain - Final 08/05/22 18:53 Wound - Left Foot Wound Culture - Final Enterococcus faecalis 08/05/22 18:53 Wound - Left Foot Anaerobic Culture - Final Bacteroides fragilis Anaerobic cocci 08/05/22 18:53 Wound - Left Foot Gram Stain - Final 08/05/22 18:53 Wound - Left Foot Wound Culture - Final Enterococcus faecalis 08/05/22 18:53 Wound - Left Foot Anaerobic Culture - Final Bacteroides fragilis Anaerobic cocci 08/05/22 Unknown Blood Culture (Wb) - Right Hand Blood Culture - Final Enterococcus faecalis 08/05/22 14:30 Blood Culture (Wb) - Right Hand Blood Culture - Final No growth in 5 days. 08/05/22 14:35 Wound - Toe Gram Stain - Final 08/05/22 14:35 Wound - Toe Wound Culture - Final Enterococcus faecalis Physical Exam Narrative alert, oriented x3, no apparent distress and healthy appearing General Appearance: cooperative, well kempt and well developed Orientation / Consciousness: awake, oriented to person, oriented to place and oriented to time HEENT normocephalic and moist oral mucous membranes Eyes PERRL, EOMs intact bilaterally and conjunctivae normal Neck supple, no JVD, thyroid normal and no carotid bruits General: trachea midline Resp normal respiratory effort, no retractions, no use of accessory muscles and clear to auscultation bilaterally Auscultation: Negative for rales, rhonchi or wheezes Cardio regular rate, regular rhythm, S1 normal heart sound, S2 normal heart sound, no murmurs, no rub and no gallops GI normal to inspection, nondistended, normoactive bowel sounds, soft to palpation, non-tender and non-distended Extremity Extremity Narrative: Patient's left foot is wrapped with surgical dressing, this was not removed for examination, patient has limited range of motion in his right shoulder due to a recent fracture Neuro oriented x3, CN's II-XII intact bilaterally, no focal motor deficits and no sensory deficits noted Sensorium / Orientation: awake and alert Speech: speech normal Psych affect normal Assessment & Plan Assessment/Plan (1) Bacteremia: (2) Gangrene of left foot: (3) Osteomyelitis of foot, left, acute: PLAN: Plan 1. Gangrene of the left foot secondary to Enterococcus and Bacteroides fragilis in a patient with known diabetic neuropathy-continue Unasyn and vancomycin, ID is participating in his care, we are currently awaiting for approval for the patient to go to a care home facility for inpatient rehab services #2 type 2 diabetes-continue to monitor blood sugars, sliding scale insulin as needed #3 anemia of chronic disease-requiring blood transfusion--patient's hemoglobin today is 6.8, I will transfuse 2 units of packed red blood cells tomorrow during dialysis #4 end-stage renal disease on dialysis-patient's next dialysis day is Tuesday #5 peripheral vascular disease-secondary to type 2 diabetes, this will complicate care, medical course, recovery, and prognosis, patient is on antiplatelet therapy with aspirin #6 hypothyroidism-patient is on Synthroid #7 essential hypertension-patient will remain on his present medications #8 recent right humerus fracture-again patient will not be able to have vigorous physical therapy on the shoulder at this time #9 bacteremia with Enterococcus-continue present antibiotics per direction of ID Total clinical time spent by myself addressing the patient's medical issues, reviewing all the data, and collaborating with patient's care team: 37-minutes Charges/Coding Visit Charges Inpatient E&M: 77594 Subs Hosp L2
[2022-08-17 20:21] LABS: Hepatitis B Surface Antigen Non-Reactive (Nonreactive)
[2022-08-17 22:10] VITALS: BP 116/37; PULSE 80; RESP 18; TEMP 36.5; O2SAT 96
[2022-08-17] MEDS: Insulin NPH Human 100 UNITS/ML PEN SC (22:15)
--- NOTE | 2022-08-17 22:15 | NURSING ---
pt requested not to be woken up until 0530 in the morning and requested his VSA/assessment around that time as well, unless he calls in the middle of the night for pain meds.
[2022-08-17] MEDS: MELATONIN 3 MG TABLET 6 MG PO (22:19)
[2022-08-18] VITALS (10 sets, daily range): BP systolic 123–160; BP diastolic 35–60; PULSE 74–86; RESP 16–18; TEMP 36.3–36.9; O2SAT 95–100; BMI 28.1
[2022-08-18] MEDS: Acetaminophen 500 MG Tablet 1000 MG PO ×3 (06:16→22:13)
[2022-08-18] MEDS: Menthol/Lanolin/Calamine/Znox 113 GM Tube 1 APPLIC TOPICAL ×3 (06:16→22:09)
[2022-08-18] MEDS: Levothyroxine 100 MCG Tablet 200 MCG PO (06:16)
[2022-08-18] MEDS: HYDROmorphone 0.5 MG/0.5 ML SYRINGE IV ×3 (06:49→23:23)
--- NOTE | 2022-08-18 08:50 | PCM.PN.REN ---
Subjective Subjective seen at start of dialysis, blood transfusion on dialysis today Objective Data Objective Data Vital Signs: Vital Signs Temp Pulse Resp BP Pulse Ox O2 Del Method O2 Flow Rate 97.5 F L 86 18 123/53 H 97 Room Air 2 08/18/22 06:11 08/18/22 06:11 08/18/22 06:11 08/18/22 06:11 08/18/22 06:11 08/18/22 08:43 08/05/22 22:16 Oxygen Flow Rate (L/min) 2 Oxygen Delivery Method Room Air Weight: 91.3 kg Body Mass Index (BMI) 28.1 Intake & Output: Intake and Output for Last 24 Hours 08/16/22 08/17/22 08/18/22 23:59 23:59 23:59 Intake Total 1704 / 1704 696 / 696 Output Total 0 / 0 Balance 1704 / 1704 696 / 696 Lab / Micro Data Result Diagrams: 08/17/22 09:57 08/16/22 05:35 Labs: Laboratory Results - last 24 hr 08/17/22 09:57: WBC 14.0 H, RBC 2.24 L, Hgb 6.9 L, Hct 21.2 L, MCV 94.6 H, MCH 30.8, MCHC 32.5, RDW Std Deviation 53.9 H, RDW Coeff of [place] 15.6 H, Plt Count 254, MPV 9.9, Immature Gran % (Auto) 0.900, Neut % (Auto) 79.9 H, Lymph % (Auto) 5.9 L, [place] % (Auto) 9.3, Eos % (Auto) 3.1, Baso % (Auto) 0.9, Absolute Neuts (auto) 11.2 H, Absolute Lymphs (auto) 0.83, Nucleated RBC % 0 08/17/22 09:57: C-React Prot Ext Range 61.40 H 08/17/22 09:57: Iron 36 L 08/17/22 18:37: Blood Type A POSITIVE, Antibody Screen NEGATIVE, Crossmatch See Detail 08/17/22 18:37: Hep Bs Antigen Non-Reactive Micro: Microbiology 08/13/22 15:20 Tissue - Left Foot Gram Stain - Final 08/13/22 15:20 Tissue - Left Foot Wound Culture - Final Enterococcus faecalis 08/13/22 15:20 Tissue - Left Foot Anaerobic Culture - Final No anaerobic bacteria isolated. 08/13/22 15:15 Bone - Left Foot Gram Stain - Final 08/13/22 15:15 Bone - Left Foot Wound Culture - Final No growth aerobically. 08/13/22 15:15 Bone - Left Foot Anaerobic Culture - Preliminary No growth in 48 hours. 08/08/22 10:50 Blood Culture (Wb) - Anticubital Right Blood Culture - Final No growth in 5 days. 08/08/22 10:30 Blood Culture (Wb) - Right Forearm Blood Culture - Final No growth in 5 days. 08/05/22 18:53 Wound - Left Foot Gram Stain - Final 08/05/22 18:53 Wound - Left Foot Wound Culture - Final Enterococcus faecalis 08/05/22 18:53 Wound - Left Foot Anaerobic Culture - Final Bacteroides fragilis Anaerobic cocci 08/05/22 18:53 Wound - Left Foot Gram Stain - Final 08/05/22 18:53 Wound - Left Foot Wound Culture - Final Enterococcus faecalis 08/05/22 18:53 Wound - Left Foot Anaerobic Culture - Final Bacteroides fragilis Anaerobic cocci 08/05/22 18:53 Wound - Left Foot Gram Stain - Final 08/05/22 18:53 Wound - Left Foot Wound Culture - Final Enterococcus faecalis 08/05/22 18:53 Wound - Left Foot Anaerobic Culture - Final Bacteroides fragilis Anaerobic cocci 08/05/22 Unknown Blood Culture (Wb) - Right Hand Blood Culture - Final Enterococcus faecalis 08/05/22 14:30 Blood Culture (Wb) - Right Hand Blood Culture - Final No growth in 5 days. 08/05/22 14:35 Wound - Toe Gram Stain - Final 08/05/22 14:35 Wound - Toe Wound Culture - Final Enterococcus faecalis Physical Exam Const alert and oriented x3 Resp clear to auscultation bilaterally Cardio regular rate GI non-tender and non-distended Palpation: soft Extremity no clubbing, cyanosis or edema Extremity Narrative: left foot wrapped Assessment & Plan Assessment/Plan (1) ESRD on dialysis: PLAN: dialysis today and MWF (2) Diabetic infection of left foot: PLAN: s/p [facility] podiatry following (3) Acute blood loss anemia: PLAN: hgb 6.9g, PHILL therapy, prbc today on dialysis (4) Bacteremia: PLAN: iv antibx, ID following
[2022-08-18 09:30] LABS: Vancomycin, Random Level 15.5 ug/mL (0.0-15.0)
--- NOTE | 2022-08-18 09:51 | PHA.PHARE_ITS ---
Consult Pharmacy has been consulted to manage selected antiobiotic: Vancomycin Type of Consult: Follow-up Prior Doses of Antibiotics Received/Current Regimen: received vanc 500mg IV x1 after HD on 08/16/22 Labs: Sodium 132 mmol/L (136-145) L 08/16/22 05:35 Potassium 4.8 mmol/L (3.5-5.1) 08/16/22 05:35 Chloride 99 mmol/L (98-107) 08/16/22 05:35 Carbon Dioxide 24.0 mmol/L (21.0-32.0) 08/16/22 05:35 Anion Gap 10 (5-15) 08/13/22 05:45 BUN 63 mg/dL (7-18) H 08/16/22 05:35 Creatinine 5.55 mg/dL (0.70-1.30) H 08/16/22 05:35 Est GFR (MDRD) Af Amer 14 mL/min (>60) L 08/16/22 05:35 Est GFR (MDRD) Non-Af 11 mL/min (>60) L 08/16/22 05:35 BUN/Creatinine Ratio 11.4 RATIO (10-20) 08/16/22 05:35 Glucose 98 mg/dL (74-106) 08/16/22 05:35 Random Vancomycin 15.5 ug/mL (0.0-15.0) H 08/18/22 08:50 Microbiology: Microbiology 08/13/22 15:20 Tissue - Left Foot Gram Stain - Final 08/13/22 15:20 Tissue - Left Foot Wound Culture - Final Enterococcus faecalis 08/13/22 15:20 Tissue - Left Foot Anaerobic Culture - Final No anaerobic bacteria isolated. 08/13/22 15:15 Bone - Left Foot Gram Stain - Final 08/13/22 15:15 Bone - Left Foot Wound Culture - Final No growth aerobically. 08/13/22 15:15 Bone - Left Foot Anaerobic Culture - Preliminary No growth in 48 hours. 08/08/22 10:50 Blood Culture (Wb) - Anticubital Right Blood Culture - Final No growth in 5 days. 08/08/22 10:30 Blood Culture (Wb) - Right Forearm Blood Culture - Final No growth in 5 days. 08/05/22 18:53 Wound - Left Foot Gram Stain - Final 08/05/22 18:53 Wound - Left Foot Wound Culture - Final Enterococcus faecalis 08/05/22 18:53 Wound - Left Foot Anaerobic Culture - Final Bacteroides fragilis Anaerobic cocci 08/05/22 18:53 Wound - Left Foot Gram Stain - Final 08/05/22 18:53 Wound - Left Foot Wound Culture - Final Enterococcus faecalis 08/05/22 18:53 Wound - Left Foot Anaerobic Culture - Final Bacteroides fragilis Anaerobic cocci 08/05/22 18:53 Wound - Left Foot Gram Stain - Final 08/05/22 18:53 Wound - Left Foot Wound Culture - Final Enterococcus faecalis 08/05/22 18:53 Wound - Left Foot Anaerobic Culture - Final Bacteroides fragilis Anaerobic cocci 08/05/22 Unknown Blood Culture (Wb) - Right Hand Blood Culture - Final Enterococcus faecalis 08/05/22 14:30 Blood Culture (Wb) - Right Hand Blood Culture - Final No growth in 5 days. 08/05/22 14:35 Wound - Toe Gram Stain - Final 08/05/22 14:35 Wound - Toe Wound Culture - Final Enterococcus faecalis Weight used for dosin.3 kg Estimated Creatinine Clearance: on HD Goal Trough: 15-20 mcg/mL Pharmacy Plan for Drug Dosing: The vanc random level drawn prior to dialysis today was 15.5. Per [facility] dosing in patients on hemodialysis, will give another 500mg IV x1 today after HD. Repeat a random level prior to HD on Tuesday as the patient gets HD Mo//. Pharmacy Service will continue to monitor and adjust dosing as required. Follow-Up Labs: Trough Vancomycin - random pre-HD Labs to be done on [date and time ordered]: 08/20/22 0600
[2022-08-18 10:02] LABS: Hepatitis B Core Ab Total Negative (Negative)
--- NOTE | 2022-08-18 11:25 | PCM.PROGNOTE ---
Objective Data Objective Data Vital Signs: Vital Signs Temp Pulse Resp BP Pulse Ox O2 Del Method O2 Flow Rate 97.5 F L 75 18 159/47 H 96 Room Air 2 08/18/22 10:00 08/18/22 10:00 08/18/22 10:00 08/18/22 10:00 08/18/22 10:00 08/18/22 10:00 08/05/22 22:16 Oxygen Flow Rate (L/min) 2 Oxygen Delivery Method Room Air Weight: 91.3 kg Body Mass Index (BMI) 28.1 Intake & Output: Intake and Output for Last 24 Hours 08/16/22 08/17/22 08/18/22 23:59 23:59 23:59 Intake Total 1704 / 1704 696 / 696 400 / 400 Output Total 0 / 0 Balance 1704 / 1704 696 / 696 400 / 400 Lab / Micro Data Result Diagrams: 08/17/22 09:57 08/16/22 05:35 Labs: Laboratory Results - last 24 hr 08/16/22 05:35: Hep B Core Total Ab Negative 08/17/22 09:57: Iron 36 L 08/17/22 18:37: Blood Type A POSITIVE, Antibody Screen NEGATIVE, Crossmatch See Detail 08/17/22 18:37: Hep Bs Antigen Non-Reactive 08/18/22 08:50: Random Vancomycin 15.5 H Micro: Microbiology 08/13/22 15:20 Tissue - Left Foot Gram Stain - Final 08/13/22 15:20 Tissue - Left Foot Wound Culture - Final Enterococcus faecalis 08/13/22 15:20 Tissue - Left Foot Anaerobic Culture - Final No anaerobic bacteria isolated. 08/13/22 15:15 Bone - Left Foot Gram Stain - Final 08/13/22 15:15 Bone - Left Foot Wound Culture - Final No growth aerobically. 08/13/22 15:15 Bone - Left Foot Anaerobic Culture - Preliminary No growth in 48 hours. 08/08/22 10:50 Blood Culture (Wb) - Anticubital Right Blood Culture - Final No growth in 5 days. 08/08/22 10:30 Blood Culture (Wb) - Right Forearm Blood Culture - Final No growth in 5 days. 08/05/22 18:53 Wound - Left Foot Gram Stain - Final 08/05/22 18:53 Wound - Left Foot Wound Culture - Final Enterococcus faecalis 08/05/22 18:53 Wound - Left Foot Anaerobic Culture - Final Bacteroides fragilis Anaerobic cocci 08/05/22 18:53 Wound - Left Foot Gram Stain - Final 08/05/22 18:53 Wound - Left Foot Wound Culture - Final Enterococcus faecalis 08/05/22 18:53 Wound - Left Foot Anaerobic Culture - Final Bacteroides fragilis Anaerobic cocci 08/05/22 18:53 Wound - Left Foot Gram Stain - Final 08/05/22 18:53 Wound - Left Foot Wound Culture - Final Enterococcus faecalis 08/05/22 18:53 Wound - Left Foot Anaerobic Culture - Final Bacteroides fragilis Anaerobic cocci 08/05/22 Unknown Blood Culture (Wb) - Right Hand Blood Culture - Final Enterococcus faecalis 08/05/22 14:30 Blood Culture (Wb) - Right Hand Blood Culture - Final No growth in 5 days. 08/05/22 14:35 Wound - Toe Gram Stain - Final 08/05/22 14:35 Wound - Toe Wound Culture - Final Enterococcus faecalis Physical Exam Narrative Neurovascular status unchanged. Full-thickness wound down to level level of metatarsal bones left foot demonstrates nice healthy base. There is intact sutures to the plantar medial flap with a plantar lateral ulceration extending to the proximal plantar medial surface this is down to level of metatarsal bone. There is moderate sanguinous drainage today. No active bleeders noted. Musculoskeletal left transmetatarsal amputation noted. No signs of DVT Assessment & Plan Assessment/Plan (1) Osteomyelitis of foot, left, acute: PLAN: Exam performed. WBC down to 14 yesterday. patient vitally stable wound appears stable, no local signs of infection. Recommend d/c to SNF when stable. Patient will require daily left foot wound dressing changes consisting of saline wet to dry gently packed into wound site deep to vessel loop closure and dry sterile dressing while at SNF. Wound site examined flushed with copious amounts of normal sterile saline and redressed with Betadine wet-to-dry overlying dry sterile dressing without compression. Patient should continue to keep heels offloaded prevent any pressure ulcerations. Patient will remain nonweightbearing to left lower extremity. Continue antibiotics per ID recommendation. Patient stable for discharge from my standpoint. Will consider vascular referral in outpatient setting. (2) ESRD (end stage renal disease): (3) Type 2 diabetes mellitus with diabetic polyneuropathy: (4) Diabetic infection of left foot:
--- NOTE | 2022-08-18 12:30 | WOUNDNOTE ---
wound photo: left foot
--- NOTE | 2022-08-18 12:31 | WOUNDNOTE ---
wound photo: left foot
--- NOTE | 2022-08-18 13:03 | CASEMGMT ---
JOSÉ ANTONIO faxed the Hepatitis B surface antigen and total core to [facility]. Nicole Montalvo REL[employer] DIRECTOR [employer]
--- NOTE | 2022-08-18 13:04 | CASEMGMT ---
JOSÉ ANTONIO received a call from [facility] with [facility]. [facility] asked JOSÉ ANTONIO to please send patient's Nephrology consults. These were faxed to [facility] as well as the prescription for IV antibiotics. Nicole ESCUDERO
--- NOTE | 2022-08-18 13:25 | PCM.PN.HOSP ---
Reason for Visit Reason for Visit: Diagnoses Gas gangrene (08/05/22) Acute posthemorrhagic anemia (08/05/22) Type 2 diabetes mellitus with diabetic polyneuropathy (08/05/22) Type 2 diabetes mellitus with other skin complications (08/05/22) Peripheral vascular disease, unspecified (08/05/22) Gangrene, not elsewhere classified (08/05/22) Cellulitis of left lower limb (08/05/22) Local infection of the skin and subcutaneous tissue, unspecified (08/05/22) Other acute osteomyelitis, left ankle and foot (08/05/22) End stage renal disease (08/05/22) Bacteremia (08/05/22) Dependence on renal dialysis (08/05/22) Subjective Subjective Patient was seen and examined today, he underwent dialysis today, I transfused 2 units of packed red blood cells today due to anemia. Patient has no complaints of any fevers or chills. Objective Data Objective Data Vital Signs: Vital Signs Temp Pulse Resp BP Pulse Ox O2 Del Method O2 Flow Rate 97.5 F L 75 18 159/47 H 96 Room Air 2 08/18/22 10:00 08/18/22 10:00 08/18/22 10:00 08/18/22 10:00 08/18/22 10:00 08/18/22 10:00 08/05/22 22:16 Oxygen Flow Rate (L/min) 2 Oxygen Delivery Method Room Air Weight: 91.3 kg Body Mass Index (BMI) 28.1 Intake & Output: Intake and Output for Last 24 Hours 08/16/22 08/17/22 08/18/22 23:59 23:59 23:59 Intake Total 1704 / 1704 696 / 696 460 / 460 Output Total 0 / 0 Balance 1704 / 1704 696 / 696 460 / 460 Lab / Micro Data Result Diagrams: 08/17/22 09:57 08/16/22 05:35 Labs: Laboratory Results - last 24 hr 08/16/22 05:35: Hep B Core Total Ab Negative 08/17/22 09:57: Iron 36 L 08/17/22 18:37: Blood Type A POSITIVE, Antibody Screen NEGATIVE, Crossmatch See Detail 08/17/22 18:37: Hep Bs Antigen Non-Reactive 08/18/22 08:50: Random Vancomycin 15.5 H Micro: Microbiology 08/13/22 15:20 Bone - Left Foot Acid Fast Bacilli Smear - Final 08/13/22 15:20 Other - Left Foot Fungal Smear - Final 08/13/22 15:15 Tissue - Left Foot Acid Fast Bacilli Smear - Final 08/13/22 15:15 Tissue - Left Foot Fungal Smear - Final 08/13/22 15:20 Tissue - Left Foot Gram Stain - Final 08/13/22 15:20 Tissue - Left Foot Wound Culture - Final Enterococcus faecalis 08/13/22 15:20 Tissue - Left Foot Anaerobic Culture - Final No anaerobic bacteria isolated. 08/13/22 15:15 Bone - Left Foot Gram Stain - Final 08/13/22 15:15 Bone - Left Foot Wound Culture - Final No growth aerobically. 08/13/22 15:15 Bone - Left Foot Anaerobic Culture - Preliminary No growth in 48 hours. 08/08/22 10:50 Blood Culture (Wb) - Anticubital Right Blood Culture - Final No growth in 5 days. 08/08/22 10:30 Blood Culture (Wb) - Right Forearm Blood Culture - Final No growth in 5 days. 08/05/22 18:53 Wound - Left Foot Gram Stain - Final 08/05/22 18:53 Wound - Left Foot Wound Culture - Final Enterococcus faecalis 08/05/22 18:53 Wound - Left Foot Anaerobic Culture - Final Bacteroides fragilis Anaerobic cocci 08/05/22 18:53 Wound - Left Foot Gram Stain - Final 08/05/22 18:53 Wound - Left Foot Wound Culture - Final Enterococcus faecalis 08/05/22 18:53 Wound - Left Foot Anaerobic Culture - Final Bacteroides fragilis Anaerobic cocci 08/05/22 18:53 Wound - Left Foot Gram Stain - Final 08/05/22 18:53 Wound - Left Foot Wound Culture - Final Enterococcus faecalis 08/05/22 18:53 Wound - Left Foot Anaerobic Culture - Final Bacteroides fragilis Anaerobic cocci 08/05/22 Unknown Blood Culture (Wb) - Right Hand Blood Culture - Final Enterococcus faecalis 08/05/22 14:30 Blood Culture (Wb) - Right Hand Blood Culture - Final No growth in 5 days. 08/05/22 14:35 Wound - Toe Gram Stain - Final 08/05/22 14:35 Wound - Toe Wound Culture - Final Enterococcus faecalis Physical Exam Narrative alert, oriented x3, no apparent distress and healthy appearing General Appearance: cooperative, well kempt and well developed Orientation / Consciousness: awake, oriented to person, oriented to place and oriented to time HEENT normocephalic and moist oral mucous membranes Eyes PERRL, EOMs intact bilaterally and conjunctivae normal Neck supple, no JVD, thyroid normal and no carotid bruits General: trachea midline Resp normal respiratory effort, no retractions, no use of accessory muscles and clear to auscultation bilaterally Auscultation: Negative for rales, rhonchi or wheezes Cardio regular rate, regular rhythm, S1 normal heart sound, S2 normal heart sound, no murmurs, no rub and no gallops GI normal to inspection, nondistended, normoactive bowel sounds, soft to palpation, non-tender and non-distended Extremity Extremity Narrative: Patient's left foot is wrapped with surgical dressing, this was not removed for examination, patient has limited range of motion in his right shoulder due to a recent fracture Neuro oriented x3, CN's II-XII intact bilaterally, no focal motor deficits and no sensory deficits noted Sensorium / Orientation: awake and alert Speech: speech normal Psych affect normal Assessment & Plan Assessment/Plan (1) Osteomyelitis of foot, left, acute: (2) Bacteremia: (3) Gangrene of left foot: PLAN: Plan 1. Gangrene of the left foot secondary to Enterococcus and Bacteroides fragilis in a patient with known diabetic neuropathy-continue Unasyn and vancomycin, ID is participating in his care, we are currently awaiting for approval for the patient to go to a custodial facility for inpatient rehab services #2 type 2 diabetes-continue to monitor blood sugars, sliding scale insulin as needed #3 anemia of chronic disease-requiring blood transfusion-patient had 2 units of packed red blood cells transfused today #4 end-stage renal disease on dialysis-patient underwent dialysis today #5 peripheral vascular disease-secondary to type 2 diabetes, this will complicate care, medical course, recovery, and prognosis, patient is on antiplatelet therapy with aspirin #6 hypothyroidism-patient is on Synthroid #7 essential hypertension-patient will remain on his present medications #8 recent right humerus fracture-again patient will not be able to have vigorous physical therapy on the shoulder at this time #9 bacteremia with Enterococcus-continue present antibiotics per direction of ID Total clinical time spent by myself addressing the patient's medical issues, reviewing all the data, and collaborating with patient's care team: 35-minutes Charges/Coding Visit Charges Inpatient E&M: 22962 Subs Hosp L2
--- NOTE | 2022-08-18 13:46 | PCM.PN.ID ---
Physical Exam Narrative Feeling better, no fever, no n/v. Const alert and no apparent distress General Appearance: cooperative Resp normal air movement and clear to auscultation bilaterally Cardio regular rate and regular rhythm GI soft to palpation, non-tender and non-distended Skin Skin Narrative: foot wrapped ID ID: Route of nutrition/ use of supplements: [] Nutritional Intake: [] IV Site: [] Cohen Catheter: [] Assessment & Plan Assessment/Plan (1) Gangrene of left foot: PLAN: Now s/p L TMA 08/05/[address] Lyn. Surg cxs so far with enterococcus and anaerobes, including (+) post-lavage cx. 1 of 2 bcx with enterococcus. Taken back to OR 08/13 for further I&D. Cont vanc/unasyn. At discharge, plan will be for 6 weeks total iv vanc dosed with HD and po flagyl, stop date 09/16/22 with weekly labs. Wbc slowly improving. ID followup in 2 weeks. Will follow (2) ESRD on dialysis: (3) Type 2 diabetes mellitus with diabetic polyneuropathy: (4) Peripheral vascular disease, unspecified:
[2022-08-18] MEDS: Lidocaine 5% Patch 1 PATCH TOPICAL (13:58)
[2022-08-18] MEDS: Calcitriol 0.25 MCG Capsule 1.25 MCG PO (14:01)
[2022-08-18] MEDS: Aspirin E.C. 81 MG Tablet PO (14:01)
[2022-08-18] MEDS: Ascorbic Acid 500 MG Tablet PO (14:01)
[2022-08-18] MEDS: Pantoprazole Sodium 40 MG Tablet PO (14:02)
[2022-08-18] MEDS: Losartan Potassium 100 MG Tablet PO (14:02)
[2022-08-18] MEDS: Folic Acid/Vitamin B Comp W-C 1 Capsule 1 CAP PO (14:02)
[2022-08-18] MEDS: LINAGLIPTIN 5 MG TABLET PO (14:02)
[2022-08-18] MEDS: 0.9% Saline Lock 10 ML Syringe IV (14:13)
[2022-08-18] MEDS: Vancomycin IV 500 MG/100 ML BAG 100 MG IV (15:12)
--- NOTE | 2022-08-18 15:18 | CASEMGMT ---
JOSÉ ANTONIO received a call from [facility] with [facility]. Patient's chair time is T,Th, Sat at 500 am with a start date of 08-24. JOSÉ ANTONIO asked if patient could start sooner as he is ready for discharge. [facility] will check with facility and get back to JOSÉ ANTONIO. JOSÉ ANTONIO called Eugenia with [facility] and let her know has a chair time, however, start date would be -. Eugenia started pre-cert and asked that send updates. Patient could to go [facility] Tuesday after his dialysis as long as they have pre-cert. Updates sent to [facility] via boarding pass. Nicole Montalvo MSW KENA
--- NOTE | 2022-08-18 15:20 | DIALYSIS ---
Hemodialysis complete. 4 hour run, 3k bath. Net fluid removed = 3000 ml. Patient tolerated HD tx well. 2 units PRBC given with HD. Left upper arm AVF: Site benign, thrill and bruit present. Needle site pressure held 10 min each. Hemostasis achieved. Report given to primary RNaBldo
[2022-08-18] MEDS: Juven (unflavored) Packet 1 PACKET PO (16:20)
[2022-08-18] MEDS: oxyCODONE 5 MG Tablet PO (16:20)
[2022-08-18] MEDS: Insulin Lispro 100 UNIT/ML INSULN.PEN SC (22:10)
[2022-08-18] MEDS: MELATONIN 3 MG TABLET 6 MG PO (22:13)
[2022-08-18] MEDS: Insulin NPH Human 100 UNITS/ML PEN SC (22:14)
[2022-08-19 04:00] VITALS: BP 132/65; PULSE 90; RESP 18; TEMP 36.6; O2SAT 99
[2022-08-19 06:00] VITALS: BMI 28.0
[2022-08-19] MEDS: Levothyroxine 100 MCG Tablet 200 MCG PO (06:59)
[2022-08-19] MEDS: Menthol/Lanolin/Calamine/Znox 113 GM Tube 1 APPLIC TOPICAL ×3 (06:59→21:46)
[2022-08-19] MEDS: Acetaminophen 500 MG Tablet 1000 MG PO ×3 (06:59→21:43)
[2022-08-19] MEDS: Insulin Lispro 100 UNIT/ML INSULN.PEN SC ×4 (07:00→21:44)
[2022-08-19 09:28] VITALS: BP 121/42; PULSE 81; RESP 16; TEMP 36.7; O2SAT 100
[2022-08-19 09:40] LABS: Absolute Lymphocyte Count 0.93 X10^3/uL (0.83-4.51); Basophil# 0.17 X10^3/uL; Basophil% 1.3 % (0-1); Eosinophil# 0.52 X10^3/uL; Eosinophils% 4.1 % (0-5); Hematocrit 27.3 % (40-54); Lymphocyte # 0.93 X10^3/ul (0.83-4.51); Lymphocyte % 7.3 % (19-41); Mean Corpuscular Hgb 30.5 pg (27.0-32.0); Mean Corpuscular Volume 92.5 fL (80-94); Mean Platelet Vol. 9.4 fl (6.2-12.0); Monocyte# 1.14 X10^3/uL; Monocyte% 8.9 % (0-10); NRBC Flagged by Analyzer 0 % (0-5); Neutrophil # 9.96 X10^3/uL (2.7-7.7); Neutrophil % 77.8 % (47-70); Platelet Count 244 K/mm3 (150-450); RBC Distribution Width CV 17.2 % (11.6-14.6); RBC Distribution Width SD 58.5 fl (35.1-43.9); Red Blood Count 2.95 M/mm3 (4.6-6.2); White Blood Count 12.8 K/mm3 (4.4-11.0)
[2022-08-19] MEDS: Juven (unflavored) Packet 1 PACKET PO ×2 (09:56→18:08)
[2022-08-19] MEDS: Lidocaine 5% Patch 1 PATCH TOPICAL (09:57)
[2022-08-19] MEDS: Aspirin E.C. 81 MG Tablet PO (09:57)
[2022-08-19] MEDS: Folic Acid/Vitamin B Comp W-C 1 Capsule 1 CAP PO (09:58)
[2022-08-19] MEDS: Ascorbic Acid 500 MG Tablet PO (09:58)
[2022-08-19] MEDS: LINAGLIPTIN 5 MG TABLET PO (09:58)
[2022-08-19] MEDS: Pantoprazole Sodium 40 MG Tablet PO (09:58)
[2022-08-19] MEDS: Losartan Potassium 100 MG Tablet PO (11:37)
[2022-08-19] MEDS: oxyCODONE 5 MG Tablet PO ×2 (11:41→18:14)
[2022-08-19 15:09] VITALS: BP 122/41; PULSE 81; RESP 15; TEMP 36.7; O2SAT 95
--- NOTE | 2022-08-19 16:50 | CASEMGMT ---
JOSÉ ANTONIO spoke with [facility] at [facility]. She has not heard back from the facility about a Tuesday start. SW let her know patient is medically ready we are just waiting on insurance authorization. JOSÉ ANTONIO sent a message to [facility] admissions checking to see if they have heard from [facility]. Nicole Montalvo FA[employer] DELIVERY DRIVER KENA
--- NOTE | 2022-08-19 19:10 | PCM.PN.HOSP ---
Reason for Visit Reason for Visit: Diagnoses Gas gangrene (08/05/22) Acute posthemorrhagic anemia (08/05/22) Type 2 diabetes mellitus with diabetic polyneuropathy (08/05/22) Type 2 diabetes mellitus with other skin complications (08/05/22) Peripheral vascular disease, unspecified (08/05/22) Gangrene, not elsewhere classified (08/05/22) Cellulitis of left lower limb (08/05/22) Local infection of the skin and subcutaneous tissue, unspecified (08/05/22) Other acute osteomyelitis, left ankle and foot (08/05/22) End stage renal disease (08/05/22) Bacteremia (08/05/22) Dependence on renal dialysis (08/05/22) Subjective Subjective Patient was seen and examined today, we are awaiting insurance authorization for transfer to an extended care facility at this time. Patient complains of right shoulder discomfort-he has a history of a recent fracture of the right humerus. Objective Data Objective Data Vital Signs: Vital Signs Temp Pulse Resp BP Pulse Ox O2 Del Method O2 Flow Rate 98.0 F 81 15 122/41 H 95 Room Air 2 08/19/22 15:09 08/19/22 15:09 08/19/22 15:09 08/19/22 15:09 08/19/22 15:09 08/19/22 15:09 08/05/22 22:16 Oxygen Flow Rate (L/min) 2 Oxygen Delivery Method Room Air Weight: 91.1 kg Body Mass Index (BMI) 28.0 Intake & Output: Intake and Output for Last 24 Hours 08/17/22 08/18/22 08/19/22 23:59 23:59 23:59 Intake Total 696 / 696 912 / 912 1074 / 1074 Output Total 3700 / 3700 300 / 300 Balance 696 / 696 -2788 / -2788 774 / 774 Lab / Micro Data Result Diagrams: 08/19/22 09:28 08/16/22 05:35 Labs: Laboratory Results - last 24 hr 08/19/22 09:28: WBC 12.8 H, RBC 2.95 L, Hgb 9.0 L, Hct 27.3 L, MCV 92.5, MCH 30.5, MCHC 33.0, RDW Std Deviation 58.5 H, RDW Coeff of [place] 17.2 H, Plt Count 244, MPV 9.4, Immature Gran % (Auto) 0.600, Neut % (Auto) 77.8 H, Lymph % (Auto) 7.3 L, [place] % (Auto) 8.9, Eos % (Auto) 4.1, Baso % (Auto) 1.3 H, Absolute Neuts (auto) 10.0 H, Absolute Lymphs (auto) 0.93, Nucleated RBC % 0 08/19/22 09:28: C-React Prot Ext Range 44.20 H Micro: Microbiology 08/13/22 15:15 Bone - Left Foot Gram Stain - Final 08/13/22 15:15 Bone - Left Foot Wound Culture - Final No growth aerobically. 08/13/22 15:15 Bone - Left Foot Anaerobic Culture - Final No growth in 5 days. 08/05/22 18:53 Bone - Left Foot Acid Fast Bacilli Smear - Final 08/05/22 18:53 Tissue - Left Foot Fungal Smear - Final 08/13/22 15:20 Bone - Left Foot Acid Fast Bacilli Smear - Final 08/13/22 15:20 Other - Left Foot Fungal Smear - Final 08/13/22 15:15 Tissue - Left Foot Acid Fast Bacilli Smear - Final 08/13/22 15:15 Tissue - Left Foot Fungal Smear - Final 08/13/22 15:20 Tissue - Left Foot Gram Stain - Final 08/13/22 15:20 Tissue - Left Foot Wound Culture - Final Enterococcus faecalis 08/13/22 15:20 Tissue - Left Foot Anaerobic Culture - Final No anaerobic bacteria isolated. 08/08/22 10:50 Blood Culture (Wb) - Anticubital Right Blood Culture - Final No growth in 5 days. 08/08/22 10:30 Blood Culture (Wb) - Right Forearm Blood Culture - Final No growth in 5 days. 08/05/22 18:53 Wound - Left Foot Gram Stain - Final 08/05/22 18:53 Wound - Left Foot Wound Culture - Final Enterococcus faecalis 08/05/22 18:53 Wound - Left Foot Anaerobic Culture - Final Bacteroides fragilis Anaerobic cocci 08/05/22 18:53 Wound - Left Foot Gram Stain - Final 08/05/22 18:53 Wound - Left Foot Wound Culture - Final Enterococcus faecalis 08/05/22 18:53 Wound - Left Foot Anaerobic Culture - Final Bacteroides fragilis Anaerobic cocci 08/05/22 18:53 Wound - Left Foot Gram Stain - Final 08/05/22 18:53 Wound - Left Foot Wound Culture - Final Enterococcus faecalis 08/05/22 18:53 Wound - Left Foot Anaerobic Culture - Final Bacteroides fragilis Anaerobic cocci 08/05/22 Unknown Blood Culture (Wb) - Right Hand Blood Culture - Final Enterococcus faecalis 08/05/22 14:30 Blood Culture (Wb) - Right Hand Blood Culture - Final No growth in 5 days. 08/05/22 14:35 Wound - Toe Gram Stain - Final 08/05/22 14:35 Wound - Toe Wound Culture - Final Enterococcus faecalis Physical Exam Narrative alert, oriented x3, no apparent distress and healthy appearing General Appearance: cooperative, well kempt and well developed Orientation / Consciousness: awake, oriented to person, oriented to place and oriented to time HEENT normocephalic and moist oral mucous membranes Eyes PERRL, EOMs intact bilaterally and conjunctivae normal Neck supple, no JVD, thyroid normal and no carotid bruits General: trachea midline Resp normal respiratory effort, no retractions, no use of accessory muscles and clear to auscultation bilaterally Auscultation: Negative for rales, rhonchi or wheezes Cardio regular rate, regular rhythm, S1 normal heart sound, S2 normal heart sound, no murmurs, no rub and no gallops GI normal to inspection, nondistended, normoactive bowel sounds, soft to palpation, non-tender and non-distended Extremity Extremity Narrative: Patient's left foot is wrapped with surgical dressing, this was not removed for examination, patient has limited range of motion in his right shoulder due to a recent fracture Neuro oriented x3, CN's II-XII intact bilaterally, no focal motor deficits and no sensory deficits noted Sensorium / Orientation: awake and alert Speech: speech normal Psych affect normal Assessment & Plan Assessment/Plan (1) Osteomyelitis of foot, left, acute: (2) Bacteremia: (3) Gangrene of left foot: PLAN: Plan 1. Gangrene of the left foot secondary to Enterococcus and Bacteroides fragilis in a patient with known diabetic neuropathy-continue Unasyn and vancomycin, ID is participating in his care, we are currently awaiting for approval for the patient to go to a [place] [facility] facility for inpatient rehab services #2 type 2 diabetes-continue to monitor blood sugars, sliding scale insulin as needed #3 anemia of chronic disease-requiring blood transfusion-patient had 2 units of packed red blood cells transfused today #4 end-stage renal disease on dialysis-patient underwent dialysis today #5 peripheral vascular disease-secondary to type 2 diabetes, this will complicate care, medical course, recovery, and prognosis, patient is on antiplatelet therapy with aspirin #6 hypothyroidism-patient is on Synthroid #7 essential hypertension-patient will remain on his present medications #8 recent right humerus fracture-again patient will not be able to have vigorous physical therapy on the shoulder at this time #9 bacteremia with Enterococcus-continue present antibiotics per direction of ID Total clinical time spent by myself addressing the patient's medical issues, reviewing all the data, and collaborating with patient's care team: 35-minutes Charges/Coding Visit Charges Inpatient E&M: 53243 Subs Hosp L2
[2022-08-19 21:09] VITALS: BP 128/55; PULSE 81; RESP 16; TEMP 36.6; O2SAT 96
[2022-08-19] MEDS: MELATONIN 3 MG TABLET 6 MG PO (21:43)
[2022-08-19] MEDS: Insulin NPH Human 100 UNITS/ML PEN SC (21:45)
[2022-08-19] MEDS: HYDROmorphone 0.5 MG/0.5 ML SYRINGE IV (22:46)
[2022-08-20 03:00] VITALS: BP 125/58; PULSE 86; RESP 17; TEMP 36.6; O2SAT 97
[2022-08-20 06:00] VITALS: BMI 27.6
[2022-08-20] MEDS: HYDROmorphone 0.5 MG/0.5 ML SYRINGE IV (06:02)
[2022-08-20] MEDS: Menthol/Lanolin/Calamine/Znox 113 GM Tube 1 APPLIC TOPICAL ×3 (06:03→22:29)
[2022-08-20] MEDS: Acetaminophen 500 MG Tablet 1000 MG PO ×3 (06:04→22:25)
[2022-08-20] MEDS: Levothyroxine 100 MCG Tablet 200 MCG PO (06:04)
[2022-08-20 07:06] LABS: Vancomycin, Random Level 15.9 ug/mL (0.0-15.0)
[2022-08-20 09:00] VITALS: BP 133/64; PULSE 79; RESP 18; TEMP 36.8; O2SAT 100
--- NOTE | 2022-08-20 09:00 | PCM.RX.CS ---
Consult Pharmacy has been consulted to manage selected antiobiotic: Vancomycin Type of Consult: Follow-up Prior Doses of Antibiotics Received/Current Regimen: last received vanc 500mg IV x1 after dialysis on 08/18/22 Labs: Sodium 132 mmol/L (136-145) L 08/16/22 05:35 Potassium 4.8 mmol/L (3.5-5.1) 08/16/22 05:35 Chloride 99 mmol/L (98-107) 08/16/22 05:35 Carbon Dioxide 24.0 mmol/L (21.0-32.0) 08/16/22 05:35 Anion Gap 10 (5-15) 08/13/22 05:45 BUN 63 mg/dL (7-18) H 08/16/22 05:35 Creatinine 5.55 mg/dL (0.70-1.30) H 08/16/22 05:35 Est GFR (MDRD) Af Amer 14 mL/min (>60) L 08/16/22 05:35 Est GFR (MDRD) Non-Af 11 mL/min (>60) L 08/16/22 05:35 BUN/Creatinine Ratio 11.4 RATIO (10-20) 08/16/22 05:35 Glucose 98 mg/dL (74-106) 08/16/22 05:35 Random Vancomycin 15.9 ug/mL (0.0-15.0) H 08/20/22 05:55 Microbiology: Microbiology 08/13/22 15:15 Bone - Left Foot Gram Stain - Final 08/13/22 15:15 Bone - Left Foot Wound Culture - Final No growth aerobically. 08/13/22 15:15 Bone - Left Foot Anaerobic Culture - Final No growth in 5 days. 08/05/22 18:53 Bone - Left Foot Acid Fast Bacilli Smear - Final 08/05/22 18:53 Tissue - Left Foot Fungal Smear - Final 08/13/22 15:20 Bone - Left Foot Acid Fast Bacilli Smear - Final 08/13/22 15:20 Other - Left Foot Fungal Smear - Final 08/13/22 15:15 Tissue - Left Foot Acid Fast Bacilli Smear - Final 08/13/22 15:15 Tissue - Left Foot Fungal Smear - Final 08/13/22 15:20 Tissue - Left Foot Gram Stain - Final 08/13/22 15:20 Tissue - Left Foot Wound Culture - Final Enterococcus faecalis 08/13/22 15:20 Tissue - Left Foot Anaerobic Culture - Final No anaerobic bacteria isolated. 08/08/22 10:50 Blood Culture (Wb) - Anticubital Right Blood Culture - Final No growth in 5 days. 08/08/22 10:30 Blood Culture (Wb) - Right Forearm Blood Culture - Final No growth in 5 days. 08/05/22 18:53 Wound - Left Foot Gram Stain - Final 08/05/22 18:53 Wound - Left Foot Wound Culture - Final Enterococcus faecalis 08/05/22 18:53 Wound - Left Foot Anaerobic Culture - Final Bacteroides fragilis Anaerobic cocci 08/05/22 18:53 Wound - Left Foot Gram Stain - Final 08/05/22 18:53 Wound - Left Foot Wound Culture - Final Enterococcus faecalis 08/05/22 18:53 Wound - Left Foot Anaerobic Culture - Final Bacteroides fragilis Anaerobic cocci 08/05/22 18:53 Wound - Left Foot Gram Stain - Final 08/05/22 18:53 Wound - Left Foot Wound Culture - Final Enterococcus faecalis 08/05/22 18:53 Wound - Left Foot Anaerobic Culture - Final Bacteroides fragilis Anaerobic cocci 08/05/22 Unknown Blood Culture (Wb) - Right Hand Blood Culture - Final Enterococcus faecalis 08/05/22 14:30 Blood Culture (Wb) - Right Hand Blood Culture - Final No growth in 5 days. 08/05/22 14:35 Wound - Toe Gram Stain - Final 08/05/22 14:35 Wound - Toe Wound Culture - Final Enterococcus faecalis Weight used for dosin.5 kg Estimated Creatinine Clearance: on HD Goal Trough: 15-20 mcg/mL Pharmacy Plan for Drug Dosing: The vanc random level drawn at 05:55 today was 15.9. Per [facility] dosing vanc in patients on HD, will give another dose of 500mg IV x1 today after HD. Repeat a random level prior to HD on Tuesday as the patient gets dialysis Mo//. Pharmacy Service will continue to monitor and adjust dosing as required. Follow-Up Labs: Trough Vancomycin - random pre-HD Labs to be done on [date and time ordered]: 08/23/22 0600
[2022-08-20] MEDS: Juven (unflavored) Packet 1 PACKET PO ×2 (09:38→16:25)
[2022-08-20] MEDS: Ascorbic Acid 500 MG Tablet PO (09:40)
[2022-08-20] MEDS: Losartan Potassium 100 MG Tablet PO (09:40)
[2022-08-20] MEDS: Calcitriol 0.25 MCG Capsule 1.25 MCG PO (09:40)
[2022-08-20] MEDS: LINAGLIPTIN 5 MG TABLET PO (09:41)
[2022-08-20] MEDS: Pantoprazole Sodium 40 MG Tablet PO (09:41)
[2022-08-20] MEDS: Aspirin E.C. 81 MG Tablet PO (09:41)
[2022-08-20] MEDS: Lidocaine 5% Patch 1 PATCH TOPICAL (09:41)
[2022-08-20] MEDS: Folic Acid/Vitamin B Comp W-C 1 Capsule 1 CAP PO (09:41)
--- NOTE | 2022-08-20 10:00 | CASEMGMT ---
JOSÉ ANTONIO updated patient letting him know that everything has been arranged for him to go to [facility] Tuesday after he gets dialysis here at [facility]. JOSÉ ANTONIO let patient know his new schedule will be ,,Tue while he is at the longterm. Nicole ESCUDERO
[2022-08-20] MEDS: oxyCODONE 5 MG Tablet PO ×3 (11:19→22:44)
[2022-08-20] MEDS: Insulin Lispro 100 UNIT/ML INSULN.PEN SC ×3 (11:22→22:28)
--- NOTE | 2022-08-20 12:04 | PCM.PROGNOTE ---
Subjective Subjective 57-year-old male seen bedside. Denies constitutional's or panic pain at this time. No changes overnight. Objective Data Objective Data Vital Signs: Vital Signs Temp Pulse Resp BP Pulse Ox O2 Del Method O2 Flow Rate 98.3 F 79 18 133/64 H 100 Room Air 2 08/20/22 09:00 08/20/22 09:00 08/20/22 09:00 08/20/22 09:00 08/20/22 09:00 08/20/22 09:24 08/05/22 22:16 Oxygen Flow Rate (L/min) 2 Oxygen Delivery Method Room Air Weight: 89.5 kg Body Mass Index (BMI) 27.6 Intake & Output: Intake and Output for Last 24 Hours 08/18/22 08/19/22 08/20/22 23:59 23:59 23:59 Intake Total 1312 / 1312 1186 / 1186 157.5 / 157.5 Output Total 3700 / 3700 300 / 500 200 / 200 Balance -2388 / -2388 886 / 686 -42.5 / -42.5 Lab / Micro Data Result Diagrams: 08/19/22 09:28 08/16/22 05:35 Labs: Laboratory Results - last 24 hr 08/17/22 18:37: Crossmatch See Detail 08/20/22 05:55: Random Vancomycin 15.9 H Micro: Microbiology 08/13/22 15:15 Bone - Left Foot Gram Stain - Final 08/13/22 15:15 Bone - Left Foot Wound Culture - Final No growth aerobically. 08/13/22 15:15 Bone - Left Foot Anaerobic Culture - Final No growth in 5 days. 08/05/22 18:53 Bone - Left Foot Acid Fast Bacilli Smear - Final 08/05/22 18:53 Tissue - Left Foot Fungal Smear - Final 08/13/22 15:20 Bone - Left Foot Acid Fast Bacilli Smear - Final 08/13/22 15:20 Other - Left Foot Fungal Smear - Final 08/13/22 15:15 Tissue - Left Foot Acid Fast Bacilli Smear - Final 08/13/22 15:15 Tissue - Left Foot Fungal Smear - Final 08/13/22 15:20 Tissue - Left Foot Gram Stain - Final 08/13/22 15:20 Tissue - Left Foot Wound Culture - Final Enterococcus faecalis 08/13/22 15:20 Tissue - Left Foot Anaerobic Culture - Final No anaerobic bacteria isolated. 08/08/22 10:50 Blood Culture (Wb) - Anticubital Right Blood Culture - Final No growth in 5 days. 08/08/22 10:30 Blood Culture (Wb) - Right Forearm Blood Culture - Final No growth in 5 days. 08/05/22 18:53 Wound - Left Foot Gram Stain - Final 08/05/22 18:53 Wound - Left Foot Wound Culture - Final Enterococcus faecalis 08/05/22 18:53 Wound - Left Foot Anaerobic Culture - Final Bacteroides fragilis Anaerobic cocci 08/05/22 18:53 Wound - Left Foot Gram Stain - Final 08/05/22 18:53 Wound - Left Foot Wound Culture - Final Enterococcus faecalis 08/05/22 18:53 Wound - Left Foot Anaerobic Culture - Final Bacteroides fragilis Anaerobic cocci 08/05/22 18:53 Wound - Left Foot Gram Stain - Final 08/05/22 18:53 Wound - Left Foot Wound Culture - Final Enterococcus faecalis 08/05/22 18:53 Wound - Left Foot Anaerobic Culture - Final Bacteroides fragilis Anaerobic cocci 08/05/22 Unknown Blood Culture (Wb) - Right Hand Blood Culture - Final Enterococcus faecalis 08/05/22 14:30 Blood Culture (Wb) - Right Hand Blood Culture - Final No growth in 5 days. 08/05/22 14:35 Wound - Toe Gram Stain - Final 08/05/22 14:35 Wound - Toe Wound Culture - Final Enterococcus faecalis Physical Exam Narrative Neurovascular status unchanged. Full-thickness wound down to level level of metatarsal bones left foot demonstrates nice healthy base. There is intact sutures to the plantar medial flap with a plantar lateral ulceration extending to the proximal plantar medial surface this is down to level of metatarsal bone. There is moderate sanguinous drainage today. No active bleeders noted. Musculoskeletal left transmetatarsal amputation noted. No signs of DVT Assessment & Plan Assessment/Plan (1) Osteomyelitis of foot, left, acute: PLAN: Exam performed. Wound site improving. Redressed with Betadine soaked gauze to wound site all over with overlapping dry sterile dressing. No compression due to peripheral vascular disease. Patient infection with improving. Continue antibiotics per infectious disease. Patient will maintain nonweightbearing status we will consider wound VAC application and will follow the patient weekly upon discharge. (2) ESRD (end stage renal disease): (3) Peripheral vascular disease, unspecified: (4) Type 2 diabetes mellitus with diabetic polyneuropathy:
[2022-08-20 15:00] VITALS: BP 138/94; PULSE 84; RESP 18; TEMP 36.3; O2SAT 100
--- NOTE | 2022-08-20 16:34 | PN.HOSP_ITS ---
Reason for Visit Reason for Visit: Diagnoses Gas gangrene (08/05/22) Acute posthemorrhagic anemia (08/05/22) Type 2 diabetes mellitus with diabetic polyneuropathy (08/05/22) Type 2 diabetes mellitus with other skin complications (08/05/22) Peripheral vascular disease, unspecified (08/05/22) Gangrene, not elsewhere classified (08/05/22) Cellulitis of left lower limb (08/05/22) Local infection of the skin and subcutaneous tissue, unspecified (08/05/22) Other acute osteomyelitis, left ankle and foot (08/05/22) End stage renal disease (08/05/22) Bacteremia (08/05/22) Dependence on renal dialysis (08/05/22) Subjective Subjective Patient was seen and examined today, we lost IV access today, due to the fact he will be getting vancomycin after his [facility] treatments in the [facility], I have elected to keep the IV out, I talked with infectious diseases and placed the patient on oral Flagyl and stopped his Unasyn. Patient will get another dose of vancomycin after the dialysis tomorrow. If he remains medically stable tomorrow he will be transferred to a long term facility. I talked to the patient about his pain, in addition to the foot pain he does have right shoulder pain from a broken shoulder, I have elected to increase his oral Oxy IR, he will not be receiving IV pain medicine any longer. Objective Data Objective Data Vital Signs: Vital Signs Temp Pulse Resp BP Pulse Ox O2 Del Method O2 Flow Rate 97.4 F L 84 18 138/94 H 100 Room Air 2 08/20/22 15:00 08/20/22 15:00 08/20/22 15:00 08/20/22 15:00 08/20/22 15:00 08/20/22 15:00 08/05/22 22:16 Oxygen Flow Rate (L/min) 2 Oxygen Delivery Method Room Air Weight: 89.5 kg Body Mass Index (BMI) 27.6 Intake & Output: Intake and Output for Last 24 Hours 08/18/22 08/19/22 08/20/22 23:59 23:59 23:59 Intake Total 1312 / 1312 1186 / 1186 517.5 / 517.5 Output Total 3700 / 3700 300 / 500 400 / 400 Balance -2388 / -2388 886 / 686 117.5 / 117.5 Lab / Micro Data Result Diagrams: 08/19/22 09:28 08/16/22 05:35 Labs: Laboratory Results - last 24 hr 08/17/22 18:37: Crossmatch See Detail 08/20/22 05:55: Random Vancomycin 15.9 H Micro: Microbiology 08/13/22 15:15 Bone - Left Foot Gram Stain - Final 08/13/22 15:15 Bone - Left Foot Wound Culture - Final No growth aerobically. 08/13/22 15:15 Bone - Left Foot Anaerobic Culture - Final No growth in 5 days. 08/05/22 18:53 Bone - Left Foot Acid Fast Bacilli Smear - Final 08/05/22 18:53 Tissue - Left Foot Fungal Smear - Final 08/13/22 15:20 Bone - Left Foot Acid Fast Bacilli Smear - Final 08/13/22 15:20 Other - Left Foot Fungal Smear - Final 08/13/22 15:15 Tissue - Left Foot Acid Fast Bacilli Smear - Final 08/13/22 15:15 Tissue - Left Foot Fungal Smear - Final 08/13/22 15:20 Tissue - Left Foot Gram Stain - Final 08/13/22 15:20 Tissue - Left Foot Wound Culture - Final Enterococcus faecalis 08/13/22 15:20 Tissue - Left Foot Anaerobic Culture - Final No anaerobic bacteria isolated. 08/08/22 10:50 Blood Culture (Wb) - Anticubital Right Blood Culture - Final No growth in 5 days. 08/08/22 10:30 Blood Culture (Wb) - Right Forearm Blood Culture - Final No growth in 5 days. 08/05/22 18:53 Wound - Left Foot Gram Stain - Final 08/05/22 18:53 Wound - Left Foot Wound Culture - Final Enterococcus faecalis 08/05/22 18:53 Wound - Left Foot Anaerobic Culture - Final Bacteroides fragilis Anaerobic cocci 08/05/22 18:53 Wound - Left Foot Gram Stain - Final 08/05/22 18:53 Wound - Left Foot Wound Culture - Final Enterococcus faecalis 08/05/22 18:53 Wound - Left Foot Anaerobic Culture - Final Bacteroides fragilis Anaerobic cocci 08/05/22 18:53 Wound - Left Foot Gram Stain - Final 08/05/22 18:53 Wound - Left Foot Wound Culture - Final Enterococcus faecalis 08/05/22 18:53 Wound - Left Foot Anaerobic Culture - Final Bacteroides fragilis Anaerobic cocci 08/05/22 Unknown Blood Culture (Wb) - Right Hand Blood Culture - Final Enterococcus faecalis 08/05/22 14:30 Blood Culture (Wb) - Right Hand Blood Culture - Final No growth in 5 days. 08/05/22 14:35 Wound - Toe Gram Stain - Final 08/05/22 14:35 Wound - Toe Wound Culture - Final Enterococcus faecalis Physical Exam Narrative General Appearance: cooperative, well kempt and well developed Orientation / Consciousness: awake, oriented to person, oriented to place and oriented to time HEENT normocephalic and moist oral mucous membranes Eyes PERRL, EOMs intact bilaterally and conjunctivae normal Neck supple, no JVD, thyroid normal and no carotid bruits General: trachea midline Resp normal respiratory effort, no retractions, no use of accessory muscles and clear to auscultation bilaterally Auscultation: Negative for rales, rhonchi or wheezes Cardio regular rate, regular rhythm, S1 normal heart sound, S2 normal heart sound, no murmurs, no rub and no gallops GI normal to inspection, nondistended, normoactive bowel sounds, soft to palpation, non-tender and non-distended Extremity Extremity Narrative: Patient's left foot is wrapped with surgical dressing, this was not removed for examination, patient has limited range of motion in his right shoulder due to a recent fracture Neuro oriented x3, CN's II-XII intact bilaterally, no focal motor deficits and no sensory deficits noted Sensorium / Orientation: awake and alert Speech: speech normal Psych affect normal Assessment & Plan Assessment/Plan (1) ESRD (end stage renal disease): (2) Osteomyelitis of foot, left, acute: (3) Bacteremia: (4) Gangrene of left foot: PLAN: Plan 1. Gangrene of the left foot secondary to Enterococcus and Bacteroides fragilis in a patient with known diabetic neuropathy-continue Unasyn and vancomycin, ID is participating in his care, if the patient remains medically stable tomorrow, he will be transferred to long term facility after dialysis tomorrow. #2 type 2 diabetes-continue to monitor blood sugars, sliding scale insulin as needed #3 anemia of chronic disease-requiring blood transfusion, I will obtain an H&H on the patient today #4 end-stage renal disease on dialysis-patient underwent dialysis today #5 peripheral vascular disease-secondary to type 2 diabetes, this will complicate care, medical course, recovery, and prognosis, patient is on antiplatelet therapy with aspirin #6 hypothyroidism-patient is on Synthroid #7 essential hypertension-patient will remain on his present medications #8 recent right humerus fracture-again patient will not be able to have vigorous physical therapy on the shoulder at this time #9 bacteremia with Enterococcus-continue present antibiotics per direction of ID Total clinical time spent by myself addressing the patient's medical issues, reviewing all the data, and collaborating with patient's care team: 35-minutes Charges/Coding Visit Charges Inpatient E&M: 33176 Subs Hosp L2
[2022-08-20 17:19] LABS: Hematocrit 31.9 % (40-54); Hemoglobin 10.7 g/dL (13.0-16.5)
--- NOTE | 2022-08-20 17:33 | CASEMGMT ---
JOSÉ ANTONIO has not heard from Eugenia with [facility]. JOSÉ ANTONIO sent a message via [facility] inquiring if patient is still good to admit on Tuesday. Nicole ESCUDERO
--- NOTE | 2022-08-20 17:39 | CASEMGMT ---
JOSÉ ANTONIO called Eugenia at [facility] and left her a voice mail asking if patient is good to admit Tuesday. JOSÉ ANTONIO also left the covering SW's number tomorrow. Nicole ESCUDERO
[2022-08-20 21:00] VITALS: BP 136/70; PULSE 83; RESP 16; TEMP 37.1; O2SAT 100
[2022-08-20 22:00] VITALS: PULSE 83
[2022-08-20] MEDS: Insulin NPH Human 100 UNITS/ML PEN SC (22:29)
[2022-08-20] MEDS: metroNIDAZOLE 500 MG Tablet PO (22:30)
[2022-08-20] MEDS: MELATONIN 3 MG TABLET 6 MG PO (22:32)
--- NOTE | 2022-08-21 02:55 | NURSING ---
pt with a lot of thick phlegm, unable to cough secretions up and is plugging, unable to get anything up w suctioning. was doing ok on airvo then pox drops d/t plugging and now is back again on bipap
[2022-08-21 04:06] VITALS: BP 129/62; PULSE 75; RESP 16; TEMP 36.6; O2SAT 99
[2022-08-21] MEDS: oxyCODONE 5 MG Tablet PO ×2 (04:10→13:50)
[2022-08-21 06:00] VITALS: BMI 27.8
[2022-08-21] MEDS: Levothyroxine 100 MCG Tablet 200 MCG PO (06:16)
[2022-08-21] MEDS: metroNIDAZOLE 500 MG Tablet PO ×2 (06:16→13:45)
[2022-08-21] MEDS: Acetaminophen 500 MG Tablet 1000 MG PO ×2 (06:17→13:44)
--- NOTE | 2022-08-21 11:28 | TREXTCAR_ITS ---
Diet Diet Order/Speech Therapy: 08/17/22 09:41 Diet: Regular - 1999 margot Is pt able to select menu?: Yes Routine Orders/Code Status Routine Lab Work: - (Peak and trough vancomycin levels drawn at direction of nephrology during the time patient is on antibiotics) Code Status: Full Code Wound(s) left foot: Wound Type: surgical wound (Wash left foot with soap and water daily, change dressing, pack with Betadine and overlying dry sterile dressing) Dressing Change: Wet to Dry Dressing Therapies Weight Bearing: Non weight bearing (Left foot) Extremity Affected:: Left Lower Physical Therapy: Eval and Treat Occupational Therapy: Eval and Treat (Also, only pendulum drops of right arm for physical therapy to the right shoulder) Problem/Diagnosis (1) ESRD (end stage renal disease): Status: Acute Code(s): N18.6 - End stage renal disease (2) Osteomyelitis of foot, left, acute: Status: Acute Code(s): M86.172 - Other acute osteomyelitis, left ankle and foot (3) Bacteremia: Status: Acute Code(s): R78.81 - Bacteremia (4) Gangrene of left foot: Status: Acute Code(s): I96 - Gangrene, not elsewhere classified Plan 1. Gangrene of the left foot secondary to Enterococcus and Bacteroides fragilis in a patient with known diabetic neuropathy-continue Unasyn and vancomycin, ID is participating in his care, if the patient remains medically stable tomorrow, he will be transferred to senior living facility after dialysis tomorrow. #2 type 2 diabetes-continue to monitor blood sugars, sliding scale insulin as needed #3 anemia of chronic disease-requiring blood transfusion, I will obtain an H&H on the patient today #4 end-stage renal disease on dialysis-patient underwent dialysis today #5 peripheral vascular disease-secondary to type 2 diabetes, this will complicate care, medical course, recovery, and prognosis, patient is on antiplatelet therapy with aspirin #6 hypothyroidism-patient is on Synthroid #7 essential hypertension-patient will remain on his present medications #8 recent right humerus fracture-again patient will not be able to have vigorous physical therapy on the shoulder at this time, patient is supposed to only do pendulum drops of his right arm while he is standing and rotating his trunk from side to side #9 bacteremia with Enterococcus-continue present antibiotics per direction of ID Total clinical time spent by myself addressing the patient's medical issues, rev iewing all the data, and collaborating with patient's care team: 35-minutes Allergies/Procedures Done in Hospital Allergies No Known Allergies Allergy (Verified 08/05/22 12:43) Procedures: - (Surgical wound debridement down to and including the level of the bone left foot, partially closed amputation transmetatarsal left foot) Type of Care/Length of Stay Estimated LOS: Convalescent Care Less Than 30 days Type of Care Needed: Skilled Rehab Potential: Good Prognosis: Good Additional Orders/Day of Discharge H&P will serve as current which was dated: 08/05/22 Day of Discharge: 08/21/22 Dietary and Speech Recommendations Dietitian Recommendations/Changes: continue regular diet as tolerated; Fenrando BID for wound healing Discharge Plan Admission Admit Date/Time: 08/05/22 16:14 Primary Reason for Your Visit: Gangrene of left foot Attending Provider: Drew Sheldon Primary Care Provider: Hortensia Reno PRODUCT INTRODUCTION MANAGER Consulting Providers: Scott Frank ; Erin Lizama ; Arias Mcbride ; Suzette Mancini ; Earnest Lyn ; Bassam Tran Instructions Additional Instructions / Restrictions: Vancomycin IV after each dialysis treatment, weekly labs need to be drawn (BMP, CBC) Right shoulder sling, no active PT and OT to right shoulder Patient has follow-up appointment with garnishment specialist regarding chronic eye problem, please see that this appointment is made and kept Patient to see Dr. Merida (orthopedics) after discharge from skilled nursing Discharge Orders/Prescriptions Prescriptions: New vancomycin 1,000 mg recon soln 500 mg IV .mwf 36 Days Qty: 12 0RF Rx Instructions: 500mg iv to be given with dialysis MWF stop date 09/16/22 dx: foot osteomyelitis weekly bmp, cbc, esr, and vanc trough. Fax to [phone] metronidazole 500 mg tablet 500 mg PO Q8H Qty: 100 0RF insulin lispro [Humalog KwikPen Insulin] 100 unit/mL Insulin Pen 0 unit subcut ACHS Qty: 0 0RF Rx Instructions: Fingerstick blood sugars AC nightly, coverage with lispro insulin per scale: 200?250: 5 units subcu, 251?300: 8 units subcu, 301?350: 12 units subcu, 351?400: 15 units subcu metronidazole 500 mg Tablet 500 mg PO TID Qty: 1 0RF Rx Instructions: Stop date 09/16/2022 lidocaine 5 % Adhesive Patch,Medicated 1 patch topical DAILY Qty: 0 0RF Protocol: *Topical Application Instructions APPLICATION INSTRUCTIONS: to right shoulder oxycodone 5 mg Tablet 5 - 10 mg PO Q4H PRN PRN (Reason: Pain Score 6-10) 3 Days Qty: 20 0RF Fernando (with collagen) 7-7-1.5 gram Powder In Packet 1 packet PO BIDCM Qty: 0 0RF sennosides-docusate sodium [Stool Softener-Stimulant Laxat] 8.6-50 mg Tablet 2 tab PO BID PRN PRN (Reason: Constipation) Qty: 0 0RF Humulin N NPH U-100 Insulin 100 unit/mL suspension 5 unit subcut QHS Qty: 10 0RF Continued losartan 100 mg tablet 100 mg PO DAILY calcitriol [Rocaltrol] 0.25 mcg capsule 1.25 mcg PO MOWEFR Januvia 25 mg tablet 25 mg PO DAILY esomeprazole magnesium 20 MG capsule,delayed release(DR/EC) 20 mg PO PRN PRN (Reason: GERD) bumetanide 2 mg Tablet 2 mg PO BID polyethylene glycol 3350 [Miralax] 17 gram Powder In Packet 17 g PO BID melatonin 3 mg Tablet 6 mg PO QHS ascorbic acid (vitamin C) [Vitamin C] 500 mg Tablet 500 mg PO DAILY pantoprazole 40 mg Tablet,Delayed Release (Dr/Ec) 40 mg PO DAILY Renal Caps 1 mg Capsule 1 cap PO DAILY acetaminophen 325 mg Tablet 650 mg PO Q4H PRN (Reason: Pain) aspirin 81 mg Tablet,Delayed Release (Dr/Ec) 81 mg PO DAILY levothyroxine 200 mcg tablet 200 mcg PO DAILY multivitamin,tx-minerals Tablet 1 tab PO DAILY Humulin N NPH Insulin KwikPen 100 unit/mL (3 mL) insulin pen 10 unit SUBCUT QHS Pro-Stat AWC 17-100 gram-kcal/30 mL Liquid 30 ml PO BID amlodipine 10 MG tablet 10 mg PO DAILY Discontinued lidocaine 5 % adhesive patch,medicated 1 patch transdermal DAILY doxycycline monohydrate 100 mg Capsule 100 mg PO BID psyllium seed (sugar) Powder 1 tbsp PO BID Humulin N NPH Insulin KwikPen 100 unit/mL (3 mL) insulin pen See Protocol SUBCUT UD Protocol: 6. Sliding Scale Insulin Custom Condition: mg/dl range Dose/Route: Number of Units Condition: 151-200 Dose/Route: 1 Condition: 201-250 Dose/Route: 2 Condition: 251-300 Dose/Route: 3 Condition: 301-350 Dose/Route: 4 Condition: 351-400 Dose/Route: 5 Condition: 401> Dose/Route: 5 Instruction: NOTIFY MD Protocol Text: Custom Sliding Scale Referrals / Follow Up: Hortensia Reno NP, PRODUCT INTRODUCTION MANAGER-C [Primary Care Provider] - Disposition Disposition (needs filled in before D/C Order can be placed): Group Home Facility
--- NOTE | 2022-08-21 11:28 | RAD_ITS ---
HISTORY: Right shoulder fracture -- 3 view requested by Ortho. TECHNIQUE: XR Shoulder Min 2 Views. COMPARISON: 08/13/2022. FINDINGS: BONES : Comminuted fracture of the humeral neck with lateral displacement and overlap. Increased superior displacement of the shaft relative to the head now seen rather than the previously described anterior displacement. Mild osteopenia. JOINTS: No dislocation. Degenerative changes. SOFT TISSUES: Mild blunting of the right costophrenic angle. RAD/Shoulder min 2 Views IMPRESSION: Comminuted displaced fracture of the right proximal humerus with increased superior displacement of the humeral shaft and decreased anterior displacement of the humeral shaft. Mild right pleural effusion. Electronically Signed: Tierra Larios MD at 14:08 EDT ,
--- NOTE | 2022-08-21 12:07 | PN.RENAL_ITS ---
Subjective Subjective seen on dialysis proceeding without incident Objective Data Objective Data Vital Signs: Vital Signs Temp Pulse Resp BP Pulse Ox O2 Del Method O2 Flow Rate 97.8 F 75 16 129/62 H 99 Room Air 2 08/21/22 04:06 08/21/22 04:06 08/21/22 04:06 08/21/22 04:06 08/21/22 04:06 08/21/22 08:40 08/05/22 22:16 Oxygen Flow Rate (L/min) 2 Oxygen Delivery Method Room Air Weight: 90 kg Body Mass Index (BMI) 27.8 Intake & Output: Intake and Output for Last 24 Hours 08/19/22 08/20/22 08/21/22 23:59 23:59 23:59 Intake Total 1186 / 1186 517.5 / 617.5 220 / 220 Output Total 300 / 500 400 / 450 50 / 50 Balance 886 / 686 117.5 / 167.5 170 / 170 Lab / Micro Data Result Diagrams: 08/20/22 17:08 08/16/22 05:35 Labs: Laboratory Results - last 24 hr 08/20/22 17:08: Hgb 10.7 L, Hct 31.9 L Micro: Microbiology 08/13/22 15:15 Bone - Left Foot Gram Stain - Final 08/13/22 15:15 Bone - Left Foot Wound Culture - Final No growth aerobically. 08/13/22 15:15 Bone - Left Foot Anaerobic Culture - Final No growth in 5 days. 08/05/22 18:53 Bone - Left Foot Acid Fast Bacilli Smear - Final 08/05/22 18:53 Tissue - Left Foot Fungal Smear - Final 08/13/22 15:20 Bone - Left Foot Acid Fast Bacilli Smear - Final 08/13/22 15:20 Other - Left Foot Fungal Smear - Final 08/13/22 15:15 Tissue - Left Foot Acid Fast Bacilli Smear - Final 08/13/22 15:15 Tissue - Left Foot Fungal Smear - Final 08/13/22 15:20 Tissue - Left Foot Gram Stain - Final 08/13/22 15:20 Tissue - Left Foot Wound Culture - Final Enterococcus faecalis 08/13/22 15:20 Tissue - Left Foot Anaerobic Culture - Final No anaerobic bacteria isolated. 08/08/22 10:50 Blood Culture (Wb) - Anticubital Right Blood Culture - Final No growth in 5 days. 08/08/22 10:30 Blood Culture (Wb) - Right Forearm Blood Culture - Final No growth in 5 days. 08/05/22 18:53 Wound - Left Foot Gram Stain - Final 08/05/22 18:53 Wound - Left Foot Wound Culture - Final Enterococcus faecalis 08/05/22 18:53 Wound - Left Foot Anaerobic Culture - Final Bacteroides fragilis Anaerobic cocci 08/05/22 18:53 Wound - Left Foot Gram Stain - Final 08/05/22 18:53 Wound - Left Foot Wound Culture - Final Enterococcus faecalis 08/05/22 18:53 Wound - Left Foot Anaerobic Culture - Final Bacteroides fragilis Anaerobic cocci 08/05/22 18:53 Wound - Left Foot Gram Stain - Final 08/05/22 18:53 Wound - Left Foot Wound Culture - Final Enterococcus faecalis 08/05/22 18:53 Wound - Left Foot Anaerobic Culture - Final Bacteroides fragilis Anaerobic cocci 08/05/22 Unknown Blood Culture (Wb) - Right Hand Blood Culture - Final Enterococcus faecalis 08/05/22 14:30 Blood Culture (Wb) - Right Hand Blood Culture - Final No growth in 5 days. 08/05/22 14:35 Wound - Toe Gram Stain - Final 08/05/22 14:35 Wound - Toe Wound Culture - Final Enterococcus faecalis Physical Exam Const alert and oriented x3 Resp clear to auscultation bilaterally Cardio regular rate Extremity no clubbing, cyanosis or edema Assessment & Plan Assessment/Plan (1) ESRD on dialysis: PLAN: dialysis today and swtiched to [facility] upon discharge to [facility] (2) Diabetic infection of left foot: PLAN: s/p [facility] podiatry following (3) Acute blood loss anemia: PLAN: hgb 10.7g, PHILL therapy, prbc (4) Bacteremia: PLAN: iv antibx, ID following
--- NOTE | 2022-08-21 12:12 | DS.PCM_ITS ---
Providers Date of Admission: 08/05/22 Date of Discharge: 08/21/22 Primary Care Physician: LEONOR Alvarado Consultations 08/05/22 18:35 Consult: Infectious Disease Routine Consulting Provider: Scott Frank Reason for Consult: gas gangrene of foot, going to OR EMERGENT Consult: No Notified: Yes Date Notified: 08/05/22 Time Notified: 16:31 Method of Notification: Text Consult: Nephrology Routine Consulting Provider: Suzette Mancini Reason for Consult: ESRD on HD MWF, provider does not come here EMERGENT Consult: No MD Notified: Yes Date Notified: 08/06/22 Time Notified: 09:59 Method of Notification: Text Consult: Onc/Wound/landscape architect Routine Comment: Reason for Consult:: left foot amputation, gas gangrene Consult: Podiatry Routine Consulting Provider: Earnest Lyn Reason for Consult: foot gas gangrene EMERGENT Consult: No MD Notified: Yes Date Notified: 08/05/22 Time Notified: 16:31 Method of Notification: ED Physician Initiated 08/09/22 11:28 Consult: Infectious Disease Routine Consulting Provider: Scott Frank Reason for Consult: Diabetic foot infection with Enterococcus EMERGENT Consult: No Notified: Yes Date Notified: 08/09/22 Time Notified: 11:28 Method of Notification: already consulted Reason For Visit: WET GANGRENE Diagnosis Discharge Diagnosis (1) ESRD on dialysis: Status: Acute Code(s): N18.6 - End stage renal disease; Z99.2 - Dependence on renal dialysis (2) Diabetic infection of left foot: Status: Acute Code(s): E11.628 - Type 2 diabetes mellitus with other skin complications; L08.9 - Local infection of the skin and subcutaneous tissue, unspecified (3) Acute blood loss anemia: Status: Acute Code(s): D62 - Acute posthemorrhagic anemia (4) Bacteremia: Status: Acute Code(s): R78.81 - Bacteremia Plan 1. 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 #2 type 2 diabetes-continue to monitor blood sugars, sliding scale insulin as needed #3 Acute on chronic anemia of chronic disease-requiring blood transfusion, I will obtain an H&H on the patient today #4 end-stage renal disease on dialysis-patient underwent dialysis today #5 peripheral vascular disease-secondary to type 2 diabetes, this will complicate care, medical course, recovery, and prognosis, patient is on antiplatelet therapy with aspirin #6 hypothyroidism-patient is on Synthroid #7 essential hypertension-patient will remain on his present medications #8 recent right humerus fracture-again patient will not be able to have vigorous physical therapy on the shoulder at this time, patient is supposed to only do pendulum drops of his right arm while he is standing and rotating his trunk from side to side #9 bacteremia with Enterococcus-continue present antibiotics per direction of ID #10 iron deficiency anemia Total clinical time spent by myself addressing the patient's medical issues, reviewing all the data, and collaborating with patient's care team: 35-minutes Medications at Discharge Home Medications esomeprazole magnesium 20 mg capsule,delayed release 20 mg PO PRN PRN GERD 05/06/19 calcitriol 0.25 mcg capsule (Rocaltrol) 1.25 mcg PO MOWEFR DIALYSIS 07/19/22 losartan 100 mg tablet 100 mg PO DAILY BLOOD PRESSURE 07/19/22 sitagliptin phosphate 25 mg tablet (Januvia) 25 mg PO DAILY DIABETES 07/19/22 acetaminophen 325 mg tablet 650 mg PO Q4H PRN Pain 08/05/22 amino acids-protein hydrolysate 17 gram-100 kcal/30 mL oral liquid (Pro-Stat AWC) 30 ml PO BID NUTRITIONAL SUPPLEMENT 08/05/22 amlodipine 10 mg tablet 10 mg PO DAILY BLOOD PRESSURE 08/05/22 ascorbic acid (vitamin C) 500 mg tablet (Vitamin C) 500 mg PO DAILY SUPPLEMENT 08/05/22 aspirin 81 mg tablet,delayed release 81 mg PO DAILY HEART HEALTH 08/05/22 bumetanide 2 mg tablet 2 mg PO BID FLUID 08/05/22 insulin NPH isoph U-100 human 100 unit/mL (3 mL) subcutaneous pen (Humulin N NPH U-100 Insulin KwikPen) 10 unit subcut QHS DIABETES 08/05/22 levothyroxine 200 mcg tablet 200 mcg PO DAILY THYROID 08/05/22 melatonin 3 mg tablet 6 mg PO QHS SLEEP 08/05/22 multivitamin,tx-minerals 1 tab PO DAILY SUPPLEMENT 08/05/22 pantoprazole 40 mg tablet,delayed release 40 mg PO DAILY GERD 08/05/22 polyethylene glycol 3350 17 gram oral powder packet (Miralax) 17 g PO BID CONSTIPATION 08/05/22 vitamin B complex and vitamin C no.20-folic acid 1 mg capsule (Renal Caps) 1 cap PO DAILY KIDNEY SUPPLEMENT 08/05/22 vancomycin 1,000 mg intravenous injection 500 mg IV .mwf 36 days #12 ea 08/10/22 metronidazole 500 mg tablet 500 mg PO Q8H #100 tabs 08/13/22 arginine 7 gram-glutam 7 gram-CaHMB 1.5 [id number]-ac-min oral pwd pkt (Fernando (with collagen)) 1 packet PO BIDCM #0 ea 08/21/22 insulin NPH isoph U-100 human 100 unit/mL subcutaneous suspension (Humulin N NPH U-100 Insulin (isophane susp)) 5 unit (0.05 mL) subcut QHS #10 mL 08/21/22 insulin lispro 100 unit/mL subcutaneous pen (Humalog KwikPen (U-100) Insulin) 0 unit (0 mL) subcut ACHS #0 mL 08/21/22 lidocaine 5 % topical patch 1 patch topical DAILY #0 ea 08/21/22 metronidazole 500 mg tablet 500 mg PO TID #1 TAB 08/21/22 oxycodone 5 mg tablet 5 - 10 mg PO Q4H PRN PRN Pain Score 6-10 3 days #20 tabs 08/21/22 sennosides 8.6 mg-docusate sodium 50 mg tablet (Stool Softener-Stimulant Laxative) 2 tab PO BID PRN PRN Constipation #0 tabs 08/21/22 Hospital Course Operations - (Partially closed amputation transmetatarsal left side) Procedures Blood transfusion and Dialysis Summary of Care Provided Minutes Spent on Discharge: 32 Hospital Course: This 57-year-old white male was seen in the emergency room at [facility] with complaints of increasing swelling, tenderness, and redness of his left foot. He had been evaluated in his bell tier office and determined to have wet gangrene, work-up in the emergency room included x-rays of the left foot which showed gas formation, podiatry was contacted and recommended emergent surgery. Patient's white blood cell count was elevated at 24.3, creatinine was 4.13 and BUN was 52. Patient was admitted to PCU and he underwent transmetatarsal amputation of the left foot, he was followed during his hospitalization by nephrology, infectious diseases, and podiatry. Patient had PT and OT services while in the hospital. Due to his recent right shoulder fracture, patient required increased pain medication during his hospitalization. Patient required blood transfusion during his hospital stay for iron deficiency anemia on a backdrop of acute blood loss anemia. On 08/21/2022, patient was seen and examined: On examination he appeared in good health and spirits. Vital signs as documented. Skin warm and dry and without overt rashes. Neck without JVD, neck was supple, trachea midline, thyroid was normal. Lungs clear bilaterally, normal air movement was noted. Heart exam notable for regular rhythm, normal sounds and absence of murmurs, rubs or gallops. Abdomen unremarkable and without evidence of organomegaly, masses, or abdominal aortic enlargement. Bowel sounds are present, abdomen is not distended. Extremities-patient's left foot was wrapped with surgical dressing. Neuro: Cranial nerves II through XII are grossly intact, no focal motor deficits were noted, sensation to light touch and pinprick intact, motor exam 5/5 through out. Psych: Patient is alert and oriented x3, he does not appear anxious or depressed, he does not appear agitated. Patient appeared stable for discharge to an extended care facility ([place], [place]) in stable condition. Weight / BMI Weight Weight: 90 kg Body Mass Index (BMI) 27.8 ABG / Lab / Microbiology Data Result Diagrams: 08/20/22 17:08 08/16/22 05:35 Laboratory: Laboratory Results - last 24 hr 08/20/22 17:08: Hgb 10.7 L, Hct 31.9 L Microbiology: Microbiology 08/13/22 15:15 Bone - Left Foot Gram Stain - Final 08/13/22 15:15 Bone - Left Foot Wound Culture - Final No growth aerobically. 08/13/22 15:15 Bone - Left Foot Anaerobic Culture - Final No growth in 5 days. 08/05/22 18:53 Bone - Left Foot Acid Fast Bacilli Smear - Final 08/05/22 18:53 Tissue - Left Foot Fungal Smear - Final 08/13/22 15:20 Bone - Left Foot Acid Fast Bacilli Smear - Final 08/13/22 15:20 Other - Left Foot Fungal Smear - Final 08/13/22 15:15 Tissue - Left Foot Acid Fast Bacilli Smear - Final 08/13/22 15:15 Tissue - Left Foot Fungal Smear - Final 08/13/22 15:20 Tissue - Left Foot Gram Stain - Final 08/13/22 15:20 Tissue - Left Foot Wound Culture - Final Enterococcus faecalis 08/13/22 15:20 Tissue - Left Foot Anaerobic Culture - Final No anaerobic bacteria isolated. 08/08/22 10:50 Blood Culture (Wb) - Anticubital Right Blood Culture - Final No growth in 5 days. 08/08/22 10:30 Blood Culture (Wb) - Right Forearm Blood Culture - Final No growth in 5 days. 08/05/22 18:53 Wound - Left Foot Gram Stain - Final 08/05/22 18:53 Wound - Left Foot Wound Culture - Final Enterococcus faecalis 08/05/22 18:53 Wound - Left Foot Anaerobic Culture - Final Bacteroides fragilis Anaerobic cocci 08/05/22 18:53 Wound - Left Foot Gram Stain - Final 08/05/22 18:53 Wound - Left Foot Wound Culture - Final Enterococcus faecalis 08/05/22 18:53 Wound - Left Foot Anaerobic Culture - Final Bacteroides fragilis Anaerobic cocci 08/05/22 18:53 Wound - Left Foot Gram Stain - Final 08/05/22 18:53 Wound - Left Foot Wound Culture - Final Enterococcus faecalis 08/05/22 18:53 Wound - Left Foot Anaerobic Culture - Final Bacteroides fragilis Anaerobic cocci 08/05/22 Unknown Blood Culture (Wb) - Right Hand Blood Culture - Final Enterococcus faecalis 08/05/22 14:30 Blood Culture (Wb) - Right Hand Blood Culture - Final No growth in 5 days. 08/05/22 14:35 Wound - Toe Gram Stain - Final 08/05/22 14:35 Wound - Toe Wound Culture - Final Enterococcus faecalis Meaningful Use Info Meaningful Use Diagnoses (Choose all that apply): None applicable Discharge Plan Admission Admit Date/Time: 08/05/22 16:14 Primary Reason for Your Visit: Gangrene of left foot Attending Provider: Drew Sheldon Primary Care Provider: Hortensia Reno NP Consulting Providers: Scott Frank ; Erin Lizama ; Arias Mcbride ; Suzette Mancini ; Earnest Lyn ; Bassam Tran Instructions Additional Instructions / Restrictions: Vancomycin IV after each dialysis treatment, weekly labs need to be drawn (BMP, CBC) Right shoulder sling, no active PT and OT to right shoulder Patient has follow-up appointment with mechanical repair worker regarding chronic eye problem, please see that this appointment is made and kept Patient to see Dr. Merida (orthopedics) after discharge from long-term Take ferrous sulfate 325 mg p.o. twice daily Discharge Orders/Prescriptions Prescriptions: New vancomycin 1,000 mg recon soln 500 mg IV .mwf 36 Days Qty: 12 0RF Rx Instructions: 500mg iv to be given with dialysis MWF stop date 09/16/22 dx: foot osteomyelitis weekly bmp, cbc, esr, and vanc trough. Fax to [phone] metronidazole 500 mg tablet 500 mg PO Q8H Qty: 100 0RF insulin lispro [Humalog KwikPen Insulin] 100 unit/mL Insulin Pen 0 unit subcut ACHS Qty: 0 0RF Rx Instructions: Fingerstick blood sugars AC nightly, coverage with lispro insulin per scale: 200?250: 5 units subcu, 251?300: 8 units subcu, 301?350: 12 units subcu, 351?400: 15 units subcu metronidazole 500 mg Tablet 500 mg PO TID Qty: 1 0RF Rx Instructions: Stop date 09/16/2022 lidocaine 5 % Adhesive Patch,Medicated 1 patch topical DAILY Qty: 0 0RF Protocol: *Topical Application Instructions APPLICATION INSTRUCTIONS: to right shoulder oxycodone 5 mg Tablet 5 - 10 mg PO Q4H PRN PRN (Reason: Pain Score 6-10) 3 Days Qty: 20 0RF Fernando (with collagen) 7-7-1.5 gram Powder In Packet 1 packet PO BIDCM Qty: 0 0RF sennosides-docusate sodium [Stool Softener-Stimulant Laxat] 8.6-50 mg Tablet 2 tab PO BID PRN PRN (Reason: Constipation) Qty: 0 0RF Humulin N NPH U-100 Insulin 100 unit/mL suspension 5 unit subcut QHS Qty: 10 0RF Continued losartan 100 mg tablet 100 mg PO DAILY calcitriol [Rocaltrol] 0.25 mcg capsule 1.25 mcg PO MOWEFR Januvia 25 mg tablet 25 mg PO DAILY esomeprazole magnesium 20 MG capsule,delayed release(DR/EC) 20 mg PO PRN PRN (Reason: GERD) bumetanide 2 mg Tablet 2 mg PO BID polyethylene glycol 3350 [Miralax] 17 gram Powder In Packet 17 g PO BID melatonin 3 mg Tablet 6 mg PO QHS ascorbic acid (vitamin C) [Vitamin C] 500 mg Tablet 500 mg PO DAILY pantoprazole 40 mg Tablet,Delayed Release (Dr/Ec) 40 mg PO DAILY Renal Caps 1 mg Capsule 1 cap PO DAILY acetaminophen 325 mg Tablet 650 mg PO Q4H PRN (Reason: Pain) aspirin 81 mg Tablet,Delayed Release (Dr/Ec) 81 mg PO DAILY levothyroxine 200 mcg tablet 200 mcg PO DAILY multivitamin,tx-minerals Tablet 1 tab PO DAILY Humulin N NPH Insulin KwikPen 100 unit/mL (3 mL) insulin pen 10 unit SUBCUT QHS Pro-Stat AWC 17-100 gram-kcal/30 mL Liquid 30 ml PO BID amlodipine 10 MG tablet 10 mg PO DAILY Discontinued lidocaine 5 % adhesive patch,medicated 1 patch transdermal DAILY doxycycline monohydrate 100 mg Capsule 100 mg PO BID psyllium seed (sugar) Powder 1 tbsp PO BID Humulin N NPH Insulin KwikPen 100 unit/mL (3 mL) insulin pen See Protocol SUBCUT UD Protocol: 6. Sliding Scale Insulin Custom Condition: mg/dl range Dose/Route: Number of Units Condition: 151-200 Dose/Route: 1 Condition: 201-250 Dose/Route: 2 Condition: 251-300 Dose/Route: 3 Condition: 301-350 Dose/Route: 4 Condition: 351-400 Dose/Route: 5 Condition: 401> Dose/Route: 5 Instruction: NOTIFY MD Protocol Text: Custom Sliding Scale Referrals / Follow Up: Hortensia Reno NP, MONITORING TECH-C [Primary Care Provider] - Disposition Disposition (needs filled in before D/C Order can be placed): [facility] Facility Charges/Coding Visit Charges Inpatient E&M: 30218 Disch Hosp >30min
--- NOTE | 2022-08-21 12:58 | BH.SGPN.T2 ---
Behaviors/Verbalizations/Mental Status: [] Client Response/Progress/Benefit: [] Narrative Note: []
--- NOTE | 2022-08-21 12:58 | DIALYSIS ---
HD x 4 hours on 2k bath [id number]-4200ml pt vitals stable Vanco given IVPB last hour of HD Stasis at [facility] dsg at sites report to Baldo DONOHUE
[2022-08-21 13:42] VITALS: BP 155/57; PULSE 81
[2022-08-21 13:44] VITALS: BP 129/62; PULSE 75; RESP 18; TEMP 36.6; O2SAT 99
[2022-08-21] MEDS: Lidocaine 5% Patch 1 PATCH TOPICAL (13:44)
[2022-08-21] MEDS: Aspirin E.C. 81 MG Tablet PO (13:45)
[2022-08-21] MEDS: Ascorbic Acid 500 MG Tablet PO (13:45)
[2022-08-21] MEDS: Folic Acid/Vitamin B Comp W-C 1 Capsule 1 CAP PO (13:45)
[2022-08-21] MEDS: Losartan Potassium 100 MG Tablet PO (13:46)
[2022-08-21] MEDS: Pantoprazole Sodium 40 MG Tablet PO (13:46)
[2022-08-21] MEDS: LINAGLIPTIN 5 MG TABLET PO (13:46)
[2022-08-21] MEDS: Menthol/Lanolin/Calamine/Znox 113 GM Tube 1 APPLIC TOPICAL (13:53)
[2022-08-21] MEDS: Senna/Docusate Sodium 1 Tablet 2 TABLET PO (13:53)
--- NOTE | 2022-08-21 14:01 | NURSING ---
Report called to [facility] for pt to be d/c. Spoke to nurse Fabian.
== END 2022-08-21 16:56 | disposition skilled nursing facility (03) | DRG 239 ==
LOC: ED 14:39 → PCU 15:15
PROVIDERS: Anesthesiology; Internal Medicine; Internal Medicine Infectious Disease; Internal Medicine Nephrology; Podiatrist; Admitting Provider Internal Medicine; Emergency Provider Emergency Medicine; PCP Registered Nurse; Visit Provider Internal Medicine
PROC: 0Y6N0Z9 Detachment at Left Foot, Partial 1st Ray, Open Approach (ICD-10-PCS; principal; 2022-08-05 15:45)
DX: E11.52 Type 2 diabetes mellitus with diabetic peripheral angiopathy with gangrene (principal); N18.6 End stage renal disease; M86.172 Other acute osteomyelitis, left ankle and foot; R78.81 Bacteremia; I12.0 Hypertensive chronic kidney disease with stage 5 chronic kidney disease or end stage renal disease; D62 Acute posthemorrhagic anemia; L03.116 Cellulitis of left lower limb; D63.8 Anemia in other chronic diseases classified elsewhere; E11.22 Type 2 diabetes mellitus with diabetic chronic kidney disease; E11.69 Type 2 diabetes mellitus with other specified complication; E11.628 Type 2 diabetes mellitus with other skin complications; E11.42 Type 2 diabetes mellitus with diabetic polyneuropathy; Z79.4 Long term (current) use of insulin; Z99.2 Dependence on renal dialysis; I48.0 Paroxysmal atrial fibrillation; E03.9 Hypothyroidism, unspecified; I25.10 Atherosclerotic heart disease of native coronary artery without angina pectoris; K21.9 Gastro-esophageal reflux disease without esophagitis; D50.9 Iron deficiency anemia, unspecified; W19.XXXD Unspecified fall, subsequent encounter; G89.29 Other chronic pain; S42.301D Unspecified fracture of shaft of humerus, right arm, subsequent encounter for fracture with routine healing; B95.2 Enterococcus as the cause of diseases classified elsewhere; B96.6 Bacteroides fragilis [B. fragilis] as the cause of diseases classified elsewhere; Z79.82 Long term (current) use of aspirin; Z20.822 Contact with and (suspected) exposure to COVID-19; Z87.891 Personal history of nicotine dependence; Z79.890 Hormone replacement therapy; Z79.899 Other long term (current) drug therapy
CPT/HCPCS: 36415; 73030; 73620; 73630; 76000; 80048; 80053; 80069; 80202; 82962; 83540; 83735; 83970; 84443; 85014; 85018; 85025; 85027; 85652; 86140; 86704; 86850; 86900; 86901; 86920; 86921; 86922; 87015; 87040; 87070; 87075; 87077; 87102; 87116; 87186; 87205; 87206; 87340; 87426; 88305; 88307; 88311; 90937; 93005; 93923; 97110; 97162; 97166; 97530; 97535; 97802; 97803; 99284; J7030; J7040; J7050; P9016; A4216; G0257; J0295; J2405; Q5106

== ENCOUNTER 2022-09-17 08:56 | Outpatient (RCR) | payer MEDICARE, MEDICAID, SELFPAY ==
[2022-09-17 09:03] VITALS: BP 142/68; PULSE 83; RESP 18; TEMP 36.2; BMI 27.9
--- NOTE | 2022-09-17 14:54 | PCM.WC.HP ---
History of Present Illness Date of Service: 09/21/22 Chief Complaint: L TMA wound History of Wound: Patient presented to the [facility] ED on 08/05/2022 with wet/gas gangrene of the left fourth and fifth toes which was found to extend along the flexor tendons into the midfoot region thus necessitating emergent left TMA on 08/05/[address] Lyn. Due to the amount of necrotic tissue that had to be debrided at the plantar aspect of the incision could not be fully closed with a flap. Unfortunately, the TMA site/flap continued to deteriorate and leukocytosis persisted, thus on 08/13/2022 another debridement of the site was performed. At the time of this admission, it was discussed that healing this TMA would likely take 6 months and the option of BKA for earlier return to function was discussed but patient declined as he wished to continue to pursue limb salvage via wound care. Patient was discharged to SNF on 08/21/2022. His medical history is significant for end-stage renal disease requiring dialysis, type 2 diabetes with polyneuropathy, paroxysmal atrial fibrillation, CAD, Crohn's disease status post right hemicolectomy. He reports that he is a candidate for kidney transplant; however, he is presently off the transplant list while he has this active wound. He reports his diabetes is currently pretty well controlled (most recent A1c in chart from 08 12 7.4), but he thinks he likely had diabetes for quite a while prior to diagnosis a couple years ago at which time his A1c was 10-11. He does have significant polyneuropathy, especially in his feet. He presents to the wound care center today for a second opinion regarding his left TMA site wound. He has been following with Dr. Lyn as an outpatient. Per podiatry notes, the wound continues to deteriorate and appear necrotic. Podiatry has continued to discuss BKA with patient and they feel that he is at high risk for this given the degradation of the wound and likely chronic osteomyelitis and very high risk for severe infection. Patient remains adamant that he wants to continue with limb salvage efforts. Podiatry has also referred to vascular/Dr. Mcqueen. Their current plan is to await vascular evaluation and consider further operative debridement. They did debride necrotic tissue at his last visit. They recently discontinued wound VAC and have now been using daily Dakin's dressings. 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 Problem with dialysis access Home Medications esomeprazole magnesium 20 mg capsule,delayed release 20 mg PO PRN PRN GERD 05/06/19 [History Last Taken 08/05/22] calcitriol 0.25 mcg capsule (Rocaltrol) 1.25 mcg PO [facility] 07/19/22 [History Last Taken 08/04/22] losartan 100 mg tablet 100 mg PO DAILY BLOOD PRESSURE 07/19/22 [History Last Taken 08/05/22] sitagliptin phosphate 25 mg tablet (Januvia) 25 mg PO DAILY DIABETES 07/19/22 [History Last Taken 08/05/22] acetaminophen 325 mg tablet 650 mg PO Q4H PRN Pain 08/05/22 [History Last Taken 08/01/22] amino acids-protein hydrolysate 17 gram-100 kcal/30 mL oral liquid (Pro-Stat AWC) 30 ml PO BID NUTRITIONAL SUPPLEMENT 08/05/22 [History Last Taken 08/05/22] amlodipine 10 mg tablet 10 mg PO DAILY BLOOD PRESSURE 08/05/22 [History Last Taken 08/05/22] ascorbic acid (vitamin C) 500 mg tablet (Vitamin C) 500 mg PO DAILY SUPPLEMENT 08/05/22 [History Last Taken 08/05/22] aspirin 81 mg tablet,delayed release 81 mg PO DAILY HEART HEALTH 08/05/22 [History Last Taken 08/05/22] bumetanide 2 mg tablet 2 mg PO BID FLUID 08/05/22 [History Last Taken 08/05/22] insulin NPH isoph U-100 human 100 unit/mL (3 mL) subcutaneous pen (Humulin N NPH U-100 Insulin Stef) See Protocol subcut QHS DIABETES 08/05/22 [History Last Taken 08/04/22] levothyroxine 200 mcg tablet 200 mcg PO DAILY THYROID 08/05/22 [History Last Taken 08/05/22] melatonin 3 mg tablet 6 mg PO QHS SLEEP 08/05/22 [History Last Taken 08/04/22] multivitamin,tx-minerals 1 tab PO DAILY SUPPLEMENT 08/05/22 [History Last Taken 08/05/22] pantoprazole 40 mg tablet,delayed release 40 mg PO DAILY GERD 08/05/22 [History Last Taken 08/05/22] vitamin B complex and vitamin C no.20-folic acid 1 mg capsule (Renal Caps) 1 cap PO DAILY KIDNEY SUPPLEMENT 08/05/22 [History Last Taken 08/05/22] metronidazole 500 mg tablet 500 mg PO Q8H #100 tabs 08/13/22 [Rx Last Taken Unknown] arginine 7 gram-glutam 7 gram-CaHMB 1.5 [id number]-ni-min oral pwd pkt (Fernando (with collagen)) 1 packet PO BIDCM #0 ea 08/21/22 [Rx Last Taken Unknown] lidocaine 5 % topical patch 1 patch topical DAILY #0 ea 08/21/22 [Rx Last Taken Unknown] sennosides 8.6 mg-docusate sodium 50 mg tablet (Stool Softener-Stimulant Laxative) 2 tab PO BID PRN PRN Constipation #0 tabs 08/21/22 [Rx Last Taken Unknown] doxycycline monohydrate 100 mg capsule 100 mg PO BID 09/17/22 [History Last Taken Unknown] insulin lispro 100 unit/mL subcutaneous pen (Humalog KwikPen (U-100) Insulin) 0 unit subcut ACHS 09/17/22 [History Last Taken Unknown] oxycodone 5 mg tablet 5 mg PO Q4H PRN PRN Pain Score 6-10 09/17/22 [History Last Taken Unknown] sodium hypochlorite 0.5 % solution (Dakin's Solution) 1 applic topical DAILY 09/17/22 [History Last Taken Unknown] Allergy/AdvReac Type Severity Reaction Status Date / Time No Known Allergies Allergy Verified 09/17/22 09:11 Family History Father Diabetes Heart disease Hypertension Surgical History History of left heart catheterization (LHC) (~08/27/20) History of right hemicolectomy History of tonsillectomy Social History Smoking Status: Former smoker Electronic Cigarette Use: not used how long ago did patient quit smoking: Smoked for a couple of months when he was 16 second hand exposure: No alcohol intake: never substance use type: does not use ROS Constitutional Constitutional: Denies change in weight, chills, fatigue, fever(s), frequent falls, lethargy, night sweats or weakness Eyes Eyes: Denies change in vision or eye pain ENT HEENT: Denies change in voice, hearing loss, loss taste/smell or vertigo Cardiovascular Cardiovascular: Denies abdominal pain, chest pain, claudication, cold extremities, dyspnea, dyspnea on exertion, fatigue, leg edema, palpitations, radiating jaw, neck or arm pain or syncope Respiratory/Chest Respiratory/Chest: Denies cough, dyspnea, hemoptysis, nail bed cyanosis, sonya-oral cyanosis, portable oxygen @ home, productive cough or wheezing Gastrointestinal Gastrointestinal: Denies abdominal pain, change in bowel habits, change in stool character, coffee ground emesis, melena, rectal bleeding or weight changes Genitourinary Genitourinary: Denies abdominal discomfort, burning urination, difficulty urinating or flank pain Musculoskeletal Musculoskeletal: Denies muscle cramps or muscle weakness Integumentary Integumentary: Denies change in pigmentation, changing lesions, erythema, rash or unusual bruising Neurologic Neurologic: Denies abnormal gait, abnormal movements, abnormal speech, behavior changes, frequent falls, syncope, tingling or weakness Psychiatric Psychiatric: Denies behavioral changes, cognitive impairment or depression Endocrine Endocrinology: Denies change in body appearance, cold intolerance, excessive sweating, flushing, heat intolerance, palpitations, polydipsia, polyphagia or polyuria Hematologic/Lymphatic Hematologic/Lymphatic: Denies anemia, easy bleeding, easy bruising or lymphadenopathy Allergic/Immunologic Allergic/Immunologic: Denies seasonal rhinorrhea, throat swelling, tongue swelling, hives or asthma Vital Signs Vital Signs Vital Signs: 09/17/22 09:03 Temperature 97.2 F L Temperature Source Temporal Pulse Rate 83 Respiratory Rate 18 Blood Pressure 142/68 H Blood Pressure Mean 92 Weight Weight: 200 lb 9.93 oz Body Mass Index (BMI) 27.9 Physical Exam Const alert, oriented x3 and no apparent distress General Appearance: cooperative HEENT normocephalic, head/scalp atraumatic, hearing grossly normal bilaterally, external ears normal and external nose normal Eyes EOMs intact bilaterally General Eye: normal appearance of both eyes Neck full ROM General: normal visual inspection and trachea midline Resp normal respiratory effort, no retractions and no use of accessory muscles Effort and Inspection: able to speak in complete sentences and symmetric chest movement; Negative for respiratory distress, stridor or audible wheezes Cardio regular rate and regular rhythm Extremity no clubbing, cyanosis or edema Extremity Narrative: Left TMA Left AV fistula Skin Wound Narrative: Large open wound of the left TMA site. Wound extends deep into the support structures, exposed bone of the metatarsal heads. There are some areas with pink granulation tissue that is well bleeding. There are also some areas with necrotic appearing tissue/black eschar. There is a foul odor associated with the wound. There is a moderate amount of serosanguineous drainage. Neuro oriented x3, CN's II-XII intact bilaterally, moves all extremities and no focal motor deficits Speech: speech normal Psych mental status grossly normal, thought process normal, cooperative, affect normal, speech normal and activity/motor behavior normal Attitude: calm Debridement Note Debridement Note No debridement was completed: No debridement was completed today Charges/Coding Visit Charges Office Visits / Consults: 22554 OV L4 New Assessment/Plan Assessment/Plan (1) Status post transmetatarsal amputation of left foot: CODE(S): Z89.432 - Acquired absence of left foot (2) Non-pressure chronic ulcer of other part of left foot with necrosis of bone: CODE(S): L97.524 - Non-pressure chronic ulcer of other part of left foot with necrosis of bone PLAN: Plan Patient had LEAS on 08/12/2022 which was limited by right humerus fracture and left AV fistula such that no ABIs could be obtained; however, left lower extremity waveforms were noted to be biphasic indicating moderate PAD. I did discuss with patient that in the setting of diabetes even mild to moderately diminished flow is significant due to the concurrent microvascular disease and overall decreased healing potential associated with diabetes which for him is also further compounded by end-stage renal disease. Often it is not a question of will something heal, but within what amount of time and with what prolonged risk of infection/serious complication which could threaten overall health/life. In his case, there is also the significant consideration of the amount of time spent off of the renal transplant list. Based upon my exam and review of his history, if this wound were to heal it is likely to be a very prolonged process with continued nonweightbearing status, daily wound care, likely further operative debridements, and certainly will be complicated by recurrent infection. There is very high risk of severe infection that poses a risk for complications such as sepsis or necessitates more proximal amputation. Based upon LEAS, patient likely has sufficient inflow to heal left BKA. It is very likely that he would heal a BKA long before this TMA site wound healed therefore allowing sooner return to function, resumption of his transplant status, and reduced risk for infectious complications. I deferred any discussion of likelihood of meaningful benefit/improved healing potential from potential vascular intervention for his appointment with Dr. Mcqueen next week. Given ongoing care received at Dr. Lyn's office, I deferred any debridement today. I will not change his current wound care regimen, re-dressed with Dakin's and dry dressing. I encouraged him to keep his appointments with Dr. Lyn's office and to keep his appointment with Dr. Mcqueen next week. He will return as needed.
== END 2022-09-17 13:29 | disposition home or self-care (01) ==
LOC: WC 08:56
PROVIDERS: PCP Registered Nurse; Referring Provider Podiatrist; Visit Provider Physician Assistant
DX: E11.621 Type 2 diabetes mellitus with foot ulcer (principal); Z89.432 Acquired absence of left foot; L97.524 Non-pressure chronic ulcer of other part of left foot with necrosis of bone; E11.42 Type 2 diabetes mellitus with diabetic polyneuropathy; E11.22 Type 2 diabetes mellitus with diabetic chronic kidney disease; I12.0 Hypertensive chronic kidney disease with stage 5 chronic kidney disease or end stage renal disease; N18.6 End stage renal disease; Z79.4 Long term (current) use of insulin; Z79.82 Long term (current) use of aspirin; Z87.891 Personal history of nicotine dependence; I25.10 Atherosclerotic heart disease of native coronary artery without angina pectoris
CPT/HCPCS: 99214; G0463

== ENCOUNTER 2022-10-07 07:57 | Outpatient (RCR) | payer MEDICARE, MEDICAID, SELFPAY ==
--- NOTE | 2022-10-07 17:32 | PCM.CONHBO ---
Assessment & Plan Assessment/Plan (1) Status post transmetatarsal amputation of left foot: (2) Type 2 diabetes mellitus with diabetic polyneuropathy: (3) Non-pressure chronic ulcer of other part of left foot with necrosis of bone: (4) ESRD (end stage renal disease): (5) Osteomyelitis of left foot: PLAN: Plan Here for HBO evaluation/consult. No significant PMH of respiratory distress or COPD. Was seen by Pulmonary today and clearance given for HBO. Documented history of CAD but no history of CHF. ESRD on Dialysis and has been otherwise stable. He also denies any concerns with his vision, ear or nasal congestion. Measures so far have not been significantly beneficial for wound healing. Given his history of Diabetes mellitus, Osteomyelitis and chronic non healing wound, he will benefit from HBO treatment. Per facility protocol, HBO treatments everyday of the week for 90 minutes and at 2ATA with no air breaks is recommended. Pending cardiology clearance, he has no contraindication to HBO treatment. He had the opportunity to watch the educational video. His questions were answered and he was advised to call of he has any further questions or concerns. History of Present Illness Date of Service: 10/07/22 Chief Complaint: Non healing Left stump/TMA wound/ulcer History of Wound: Mr. Villa is a 57-year-old currently following up with Dr. 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 He is status post TMA of his left foot. Due to chronicity and nonhealing, recommendations was made for hyperbaric oxygen treatment. History of end-stage renal disease, typically has dialysis Tuesday, and Tuesday. He states that apart from his chronic renal disease he is otherwise well. History of diabetes and has been working on optimal control, most recent A1c per patient was less than 6. No known history of lung disease, history of pulmonary nodule for which she was seen in clinic by primary today. Also denies any history of congestive heart failure. Prior history of mild cataract but denies any ear pain or congestion. COUNTS INCLUDE 234 BEDS AT THE [facility] Medical History (Updated 10/07/22 @ 17:[address] 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 Osteomyelitis of left foot Problem with dialysis access Home Medications esomeprazole magnesium 20 mg capsule,delayed release 20 mg PO PRN PRN GERD 05/06/19 [History Last Taken 08/05/22] losartan 100 mg tablet 100 mg PO DAILY BLOOD PRESSURE 07/19/22 [History Last Taken 08/05/22] sitagliptin phosphate 25 mg tablet (Januvia) 25 mg PO DAILY DIABETES 07/19/22 [History Last Taken 08/05/22] acetaminophen 325 mg tablet 650 mg PO Q4H PRN Pain 08/05/22 [History Last Taken 08/01/22] amino acids-protein hydrolysate 17 gram-100 kcal/30 mL oral liquid (Pro-Stat AWC) 30 ml PO BID NUTRITIONAL SUPPLEMENT 08/05/22 [History Last Taken 08/05/22] amlodipine 10 mg tablet 10 mg PO DAILY BLOOD PRESSURE 08/05/22 [History Last Taken 08/05/22] ascorbic acid (vitamin C) 500 mg tablet (Vitamin C) 500 mg PO DAILY SUPPLEMENT 08/05/22 [History Last Taken 08/05/22] aspirin 81 mg tablet,delayed release 81 mg PO DAILY HEART HEALTH 08/05/22 [History Last Taken 08/05/22] bumetanide 2 mg tablet 2 mg PO BID FLUID 08/05/22 [History Last Taken 08/05/22] insulin NPH isoph U-100 human 100 unit/mL (3 mL) subcutaneous pen (Humulin N NPH U-100 Insulin KwikPen) See Protocol subcut QHS DIABETES 08/05/22 [History Last Taken 08/04/22] levothyroxine 200 mcg tablet 200 mcg PO DAILY THYROID 08/05/22 [History Last Taken 08/05/22] melatonin 3 mg tablet 6 mg PO QHS SLEEP 08/05/22 [History Last Taken 08/04/22] multivitamin,tx-minerals 1 tab PO DAILY SUPPLEMENT 08/05/22 [History Last Taken 08/05/22] pantoprazole 40 mg tablet,delayed release 40 mg PO DAILY GERD 08/05/22 [History Last Taken 08/05/22] vitamin B complex and vitamin C no.20-folic acid 1 mg capsule (Renal Caps) 1 cap PO DAILY KIDNEY SUPPLEMENT 08/05/22 [History Last Taken 08/05/22] metronidazole 500 mg tablet 500 mg PO Q8H #100 tabs 08/13/22 [Rx Last Taken Unknown] arginine 7 gram-glutam 7 gram-CaHMB 1.5 [id number]-uo-min oral pwd pkt (Fernando (with collagen)) 1 packet PO BIDCM #0 ea 08/21/22 [Rx Last Taken Unknown] lidocaine 5 % topical patch 1 patch topical DAILY #0 ea 08/21/22 [Rx Last Taken Unknown] sennosides 8.6 mg-docusate sodium 50 mg tablet (Stool Softener-Stimulant Laxative) 2 tab PO BID PRN PRN Constipation #0 tabs 08/21/22 [Rx Last Taken Unknown] doxycycline monohydrate 100 mg capsule 100 mg PO BID 09/17/22 [History Last Taken Unknown] insulin lispro 100 unit/mL subcutaneous pen (Humalog KwikPen (U-100) Insulin) 0 unit subcut ACHS 09/17/22 [History Last Taken Unknown] sodium hypochlorite 0.5 % solution (Dakin's Solution) 1 applic topical DAILY 09/17/22 [History Last Taken Unknown] oxycodone 5 mg tablet 10 mg PO BID 10/07/22 [History Last Taken Unknown] Allergy/AdvReac Type Severity Reaction Status Date / Time No Known Allergies Allergy Verified 10/07/22 08:27 Family History Father Diabetes Heart disease Hypertension Surgical History History of left heart catheterization (LHC) (~08/27/20) History of right hemicolectomy History of tonsillectomy Social History (Updated 10/07/22 @ 07:25 by Nikki Beatty) Smoking Status: Never smoker Electronic Cigarette Use: not used how long ago did patient quit smoking: Smoked for a couple of months when he was 16 second hand exposure: No alcohol intake: never substance use type: does not use ROS Constitutional Constitutional: Denies change in weight, chills, fatigue, fever(s), frequent falls, lethargy, night sweats or weakness Eyes Eyes: Denies change in vision or eye pain ENT HEENT: Denies change in voice, hearing loss, loss taste/smell or vertigo Cardiovascular Cardiovascular: Denies abdominal pain, chest pain, claudication, cold extremities, dyspnea, dyspnea on exertion, fatigue, leg edema, palpitations, radiating jaw, neck or arm pain or syncope Respiratory/Chest Respiratory/Chest: Denies cough, dyspnea, hemoptysis, nail bed cyanosis, sonya-oral cyanosis, portable oxygen @ home, productive cough or wheezing Gastrointestinal Gastrointestinal: Denies abdominal pain, change in bowel habits, change in stool character, coffee ground emesis, melena, rectal bleeding or weight changes Genitourinary Genitourinary: Denies abdominal discomfort, burning urination, difficulty urinating or flank pain Musculoskeletal Musculoskeletal: Denies muscle cramps or muscle weakness Integumentary Integumentary: Denies change in pigmentation, changing lesions, erythema, rash or unusual bruising Neurologic Neurologic: Denies abnormal gait, abnormal movements, abnormal speech, behavior changes, frequent falls, syncope, tingling or weakness Psychiatric Psychiatric: Denies behavioral changes, cognitive impairment or depression Endocrine Endocrinology: Denies change in body appearance, cold intolerance, excessive sweating, flushing, heat intolerance, palpitations, polydipsia, polyphagia or polyuria Hematologic/Lymphatic Hematologic/Lymphatic: Denies anemia, easy bleeding, easy bruising or lymphadenopathy Allergic/Immunologic Allergic/Immunologic: Denies seasonal rhinorrhea, throat swelling, tongue swelling, hives or asthma Physical Exam Physical Exam Const alert, oriented x3 and no apparent distress General Appearance: cooperative, comfortable and well kempt HEENT normocephalic, head/scalp atraumatic, hearing grossly normal bilaterally, EAC's normal and TM's normal bilaterally Eyes EOMs intact bilaterally Neck full ROM and supple General: normal visual inspection Lymph Lymphatic: no lymphadenopathy noted Resp normal respiratory effort and normal air movement Effort and Inspection: able to speak in complete sentences Cardio regular rate, regular rhythm, S1 normal heart sound and S2 normal heart sound GI soft to palpation and non-tender Skin Wounds: wounds noted Neuro oriented x3, CN's II-XII intact bilaterally, moves all extremities and no focal motor deficits Psych mental status grossly normal, thought process normal, cooperative and affect normal Nursing Assessment and Debridement Post-Debridement Measurements and Additional Note: Post-Debridement Measurements/Treatment WC - Nurse 2 - General Ulcer CM Notes Start: 10/07/22 08:09 Freq: Status: Active Protocol: Activity Type Activity Date Activity User E-sign Co-sign Detail Recorded Client Recorded Date Recorded By Document 10/07/22 09:02 ETHEL [id number] 10/07/22 09:10 ETHEL 10/07/22 09:02 Wound Center Nurse 2 #1 Left post trans met cluster -Correct Patient No -Correct Side, Site, Position No -Correct Procedure No -Procedure Performed No Pain Scale: 0-10 Numeric Is Patient Pain Free? Yes Charges/Coding Visit Charges Office Visits / Consults: 84233 OV L3 Est
== END 2022-10-20 23:59 | disposition home or self-care (01) ==
LOC: WC 07:57
PROVIDERS: PCP Registered Nurse; Referring Provider Podiatrist; Visit Provider Internal Medicine
DX: E11.621 Type 2 diabetes mellitus with foot ulcer (principal); Z89.422 Acquired absence of other left toe(s); L97.524 Non-pressure chronic ulcer of other part of left foot with necrosis of bone; M86.9 Osteomyelitis, unspecified; E11.22 Type 2 diabetes mellitus with diabetic chronic kidney disease; E11.42 Type 2 diabetes mellitus with diabetic polyneuropathy; I12.0 Hypertensive chronic kidney disease with stage 5 chronic kidney disease or end stage renal disease; N18.6 End stage renal disease; Z79.4 Long term (current) use of insulin; Z79.82 Long term (current) use of aspirin; Z87.891 Personal history of nicotine dependence; I25.10 Atherosclerotic heart disease of native coronary artery without angina pectoris; Z79.01 Long term (current) use of anticoagulants; R29.6 Repeated falls
CPT/HCPCS: 99213; G0463

== ENCOUNTER 2022-10-15 05:49 | Day surgery (SDC) | payer MEDICARE, MEDICAID, SELFPAY ==
[2022-10-15] VITALS (11 sets, daily range): BP systolic 103–134; BP diastolic 59–67; PULSE 70–79; RESP 14–18; TEMP 36.1–36.4; O2SAT 98–100; BMI 28.8
[2022-10-15 07:24] LABS: Bedside Glucose 116 mg/dL (74-106)
--- NOTE | 2022-10-15 07:30 | BON_PTH ---
PATIENT: ISABELLA ANDERSON Jr. LOC: [facility] [place] U#:[id number] AGE/SX: 57/M ROOM: RE10/15/[address]: Dr. Earnest Lyn DPM : 1965 BED: DIS: 10/15/2022 SPEC #: [id number] RECD: 10/15/22 10:09 STATUS: DORINDA REQ #: [id number] RINKU: 10/15/22 07:[address]: Earnest Lyn DEPT: SURGICAL PATHOLOGY RECD BY: Emmy Hunter ENTERED: 10/15/22 11:14 SP TYPE: Bone OTHR DR: Hortensia Reno, SCHOOL [employer] AIDE-C Tissues: Toe, NOS Procedures: Decalcification bone/plaque Surgery Specimen Level IV HEADER OPERATION: Foot wound debridement with bone resection and application PRE-OP DIAGNOSIS: Nonpressure chronic ulcer of left foot with necrosis of bone TISSUE SUBMITTED: Left fifth metatarsal base MICROSCOPIC DIAGNOSIS Left fifth metatarsal base, bone resection: Pieces of bone with marked acute osteomyelitis. BETHANY:hemant 10/21/2022 MICROSCOPIC DESCRIPTION Slides are reviewed. GROSS DESCRIPTION Received in fixative is one container labeled with the patient's name and designated left fifth metatarsal base. The specimen consists of two pieces of bone measuring 3.0 x 2.5 x 1.0 cm and 2.0 x 1.5 x 1.5 cm. Teaching Assistant sections are submitted in two cassettes after decalcification. / BETHANY:hemant 10/15/2022 The entire specimen is submitted in five cassettes after decalcification. / BETHANY:hemant 10/20/2022 TC:2 CPT: 39065, 51421
[2022-10-15] MEDS: Lidocaine 1% (20 ml mdv) 20 ML Vial (08:15)
--- NOTE | 2022-10-15 08:45 | PCM.OPRPT ---
Problems Associated Problem List Diagnoses (1) Diabetic infection of left foot: (2) Type 2 diabetes mellitus with diabetic polyneuropathy: (3) Peripheral vascular disease, unspecified: (4) Osteomyelitis of foot, left, acute: (5) Non-pressure chronic ulcer of other part of left foot with necrosis of bone: (6) Osteomyelitis of left foot: Report of Operation Date of Procedure: 10/15/22 Pre-Operative Diagnosis: 1) full-thickness wound left transmetatarsal amputation site down to level of bone 2) peripheral arterial disease and peripheral neuropathy in setting of type 2 diabetes with end-stage renal disease 3) 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 This may demarcating to full-thickness eschar. We will observe the site. Upon debridement there is noted to be adequate bleeding to the wound site suggestive of wound healing potential. There is residual necrotic tissue which was excised in its entirety as well as necrotic fifth metatarsal base which was also excised. There is diffuse exposed bone at the level of the metatarsals and cuneiforms but the peribone and periwound areas demonstrate significant healthy granulation tissue with adequate bleeding. Is been discussed the patient multiple times patient should consider performing below-knee amputation left lower extremity but patient wishes to proceed with limb salvage to the left lower extremity. Was discussed with the patient again in detail that if any acute infection develops patient will then have no choice but to proceed with BKA. At this time wound appears to be stable. Surgeon: Earnest Lyn cephalometric tracer: None (danay monreal DPM PGY1) Type of Anesthesia: General Special Medications: 10 cc half percent Marcaine plain Specimen's removed: Left fifth metatarsal base Drains: None Estimated Blood Loss (mL): 50 cc Description of Procedure: Patient was brought back the operating placed comfortably in supine position on the operating table. Patient induced under general anesthesia. All osseous prominences offloaded prevent any compression neuropraxia. Well-padded left ankle tourniquet was applied. This was not used throughout the case. Left lower extremity was scrubbed prepped and draped using typical aseptic fashion. Once cleared by anesthesia the left foot wound was debrided excisionally using combination of #15 blade pickups and bone rongeurs of all nonviable tissue and necrotic tissue down to including the level of bone. Predebridement the wound was 10.5 by 5.5 x 3 cm. Postdebridement the wound was 11.5 x 6.5 x 5 cm. Again all nonviable tissue was removed healthy granular bleeding base was noted including exposed medial cuneiform second third and fourth metatarsal. The fifth metatarsal base was removed in its entirety using combination of sagittal saw and 15 blade and pickups. This was sent for bone culture and bone pathology. The wound base was then flushed with copious amounts of normal sterile saline using 3 cc liters via low-pressure pulse lavage. Next axial fill graft was applied to the wound base to enhance healing potential. A total of 1250 cc was used. Next the foot was cleansed and dressed with Adaptic 4 x 4's ABD pads and Kerlix. Compression avoided due to sensitivity of the skin to take dressings in setting of peripheral vascular disease. Patient was transferred to PACU with vital signs stable and vascular status intact. Patient tolerated procedure and anesthesia well. Patient will be [facility] back to shelter facility. No complications. Grafts/Implants Used: 1250 cc axiofill Complications None Admit VTE Documentation VTE Present on Admission: Yes VTE Pharm Prophylaxis ordered?: Yes
--- NOTE | 2022-10-15 08:56 | RAD_ITS ---
INDICATION: Left foot pain, wound, post surgery. EXAMINATION/TECHNIQUE: X-RAY - LEFT XR Foot Min 3 Views. 3 views. COMPARISON: August 05, 2022 left foot x-rays. FINDINGS: Again seen are postoperative changes of transmetatarsal amputation. There has been interval loss of soft tissue at the stump with appearance of exposed bone, and gas within the soft tissues. Stable midfoot degenerative changes. Arteriovascular calcifications and overlying surgical dressing material. RAD/Foot min 3 Views IMPRESSION: Post transmetatarsal amputation with interval abnormal appearance of the stump. Electronically Signed: Jersey Luong MD at 17:13 EDT ,
--- NOTE | 2022-10-15 09:14 | SUR.PHASEI ---
DR. COSME HERE TO REINFORCE DRESSING BECAUSE A COPIOUS AMOUNT OF BLOOD WAS NOTED AT THE BOTTOM OF HIS FOOT.
[2022-10-15] MEDS: Losartan Potassium 100 MG Tablet PO (09:47)
[2022-10-15] MEDS: amLODIPine 10 MG Tablet PO (09:47)
[2022-10-15 10:00] LABS: Troponin-I HS 18 pg/mL (3.0-78.0)
[2022-10-15 10:01] LABS: Bedside Glucose 136 mg/dL (74-106)
--- NOTE | 2022-10-15 11:49 | SUR.PHASEII ---
TC TO [facility] SPOKE WITH CHARANJIT REED - REPORTED THAT PT HAD SOME EKG CHANGES IN PACU (PVC S) TROPONIN LEVEL WAS NORMAL. NORVASC AND COZAAR WAS GIVEN AT 0945. INSTRUCTED ON DAILY DRESSING CHANGES, AND TO AVOID ICE AND ELEVATION. FOLLOW UP IN ONE WEEK. QUESTIONING WHAT TO DO WITH THE [facility] - WILL PAGE DR CARMELINA BARRY MD AT 1145. PT WAS OUT IN PARKING LOT READY FOR TRANSFER WHEN HIS DRESSING BECAME FULLY SATURATED WITH BLOOD. PT WAS BROUGHT BACK INTO AC AND FOOT EVEVATED AND PAD PLACED UNDER HIS FOOT.
[2022-10-15 12:43] LABS: Hematocrit 25.4 % (40-54); Hemoglobin 8.3 g/dL (13.0-16.5)
--- NOTE | 2022-10-15 14:03 | SUR.PHASEII ---
TC MADE TO GROUP HOME TO FOLLOW UP WITH DRESSING INSTRUCTIONS- USE ADAPTIVE, 4X4S AND ABD AND KERLIX FOR ONE WEEK, THEN WILL GO BACK TO [facility] - PT MAY ELEVATE HIS FOOT TO HELP CONTROL THE BLEEDING
== END 2022-10-15 13:00 | disposition home or self-care (01) ==
LOC: SDC 05:52 → AC 05:53
PROVIDERS: Anesthesiology; PCP Registered Nurse; Referring Provider Podiatrist; Visit Provider Podiatrist
PROC: (CPT 15275; principal; 2022-10-15 07:15)
DX: E11.621 Type 2 diabetes mellitus with foot ulcer (principal); E11.51 Type 2 diabetes mellitus with diabetic peripheral angiopathy without gangrene; L97.524 Non-pressure chronic ulcer of other part of left foot with necrosis of bone; M86.172 Other acute osteomyelitis, left ankle and foot; K50.90 Crohn's disease, unspecified, without complications; E11.628 Type 2 diabetes mellitus with other skin complications; E11.42 Type 2 diabetes mellitus with diabetic polyneuropathy; E11.22 Type 2 diabetes mellitus with diabetic chronic kidney disease; E11.69 Type 2 diabetes mellitus with other specified complication; N18.6 End stage renal disease; I12.0 Hypertensive chronic kidney disease with stage 5 chronic kidney disease or end stage renal disease; Z79.4 Long term (current) use of insulin; I25.10 Atherosclerotic heart disease of native coronary artery without angina pectoris; K21.9 Gastro-esophageal reflux disease without esophagitis; Z79.82 Long term (current) use of aspirin; Z79.899 Other long term (current) drug therapy; Z79.01 Long term (current) use of anticoagulants
CPT/HCPCS: 15275; 11044; 00400; 73630; 82962; 84484; 85014; 85018; 87070; 87075; 87077; 87102; 87176; 87186; 87205; 87206; 88305; 88311; 93005; J7040; J2405

== ENCOUNTER 2022-11-19 13:00 | Outpatient (RCR) | payer MEDICARE, MEDICAID, SELFPAY ==
[2022-11-03 06:17] LABS: Bedside Glucose 219 mg/dL (74-106)
[2022-11-04 13:11] LABS: Bedside Glucose 168 mg/dL (74-106)
--- NOTE | 2022-11-04 13:33 | PCM.HBO.PN ---
History of Present Illness Date of Service: 11/04/22 Chief Complaint: Non healing Left stump/TMA wound/ulcer History of Wound: Mr. Villa is a 57-year-old currently following up with Dr. 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 He is status post TMA of his left foot. Due to chronicity and nonhealing, recommendations was made for hyperbaric oxygen treatment. History of end-stage renal disease, typically has dialysis Tuesday, and Tuesday. He states that apart from his chronic renal disease he is otherwise well. History of diabetes and has been working on optimal control, most recent A1c per patient was less than 6. No known history of lung disease, history of pulmonary nodule for which she was seen in clinic by primary today. Also denies any history of congestive heart failure. Prior history of mild cataract but denies any ear pain or congestion. Subjective Subjective Today is the 1st treatment of hyperbaric oxygen therapy.? The patient is scheduled for 30 treatments total. Tolerance of hyperbaric oxygen therapy: Hyperbaric oxygen therapy was administered as per the facility's protocol.? Hyperbaric oxygen therapy was administered at 2.0 EVI in 100% oxygen for 90 minutes without air breaks.? The patient tolerated hyperbaric oxygen therapy well, without complications or complaints. Upon emergence of the hyperbaric chamber, the patient's vital signs remained stable.? He was discharged in good condition. See blood glucose results documented elsewhere. Objective Data Lab / Micro Data Labs: Laboratory Results - last 24 hr 11/04/22 12:49: POC Glucose 168 H Exam Physical Exam Const alert General Appearance: cooperative HEENT normocephalic External Ear: external ears normal Tympanic Membrane: TM's normal bilaterally Neck General: normal visual inspection Chest inspection of chest normal Resp normal respiratory effort and normal air movement Effort and Inspection: able to speak in complete sentences Auscultation: clear to auscultation bilaterally Cardio regular rate and regular rhythm Psych mental status grossly normal Assessment/Plan Assessment/Plan (1) Diabetic infection of left foot: CODE(S): E11.628 - Type 2 diabetes mellitus with other skin complications; L08.9 - Local infection of the skin and subcutaneous tissue, unspecified PLAN: He is tolerating hyperbaric oxygen therapy, he is benefiting from the therapy which will be continued per his medical plan.
[2022-11-04 15:29] LABS: Bedside Glucose 209 mg/dL (74-106)
[2022-11-04 15:41] VITALS: BP 141/77; BP 153/64; PULSE 85; PULSE 86; RESP 18; TEMP 35.9; TEMP 36.6
--- NOTE | 2022-11-08 14:36 | PCM.HBO.PN ---
History of Present Illness Date of Service: 11/08/22 Chief Complaint: Non healing Left stump/TMA wound/ulcer History of Wound: Mr. Villa is a 57-year-old currently following up with Dr. 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 He is status post TMA of his left foot. Due to chronicity and nonhealing, recommendations was made for hyperbaric oxygen treatment. History of end-stage renal disease, typically has dialysis Tuesday, and Tuesday. He states that apart from his chronic renal disease he is otherwise well. History of diabetes and has been working on optimal control, most recent A1c per patient was less than 6. No known history of lung disease, history of pulmonary nodule for which she was seen in clinic by primary today. Also denies any history of congestive heart failure. Prior history of mild cataract but denies any ear pain or congestion. Subjective Subjective Today is the 2nd treatment of hyperbaric oxygen therapy.? The patient is scheduled for 30 treatments total. Tolerance of hyperbaric oxygen therapy: Hyperbaric oxygen therapy was administered as per the facility's protocol.? Hyperbaric oxygen therapy was administered at 2.0 EVI in 100% oxygen for 90 minutes without air breaks.? The patient tolerated hyperbaric oxygen therapy well, without complications or complaints. Upon emergence of the hyperbaric chamber, the patient's vital signs remained stable.? He was discharged in good condition. See blood glucose results documented elsewhere. Objective Data Objective Data Vital Signs: Vital Signs Temp Pulse Resp BP 96.7 F L 85 18 141/77 H 11/04/22 15:41 11/04/22 15:41 11/04/22 15:41 11/04/22 15:41 Exam Physical Exam Const alert General Appearance: cooperative HEENT normocephalic External Ear: external ears normal Tympanic Membrane: TM's normal bilaterally Neck General: normal visual inspection Chest inspection of chest normal Resp normal respiratory effort and normal air movement Effort and Inspection: able to speak in complete sentences Auscultation: clear to auscultation bilaterally Cardio regular rate and regular rhythm Psych mental status grossly normal Assessment/Plan Assessment/Plan (1) Diabetic infection of left foot: CODE(S): E11.628 - Type 2 diabetes mellitus with other skin complications; L08.9 - Local infection of the skin and subcutaneous tissue, unspecified PLAN: He is tolerating hyperbaric oxygen therapy, he is benefiting from the therapy which will be continued per his medical plan.
[2022-11-08 14:40] VITALS: BP 118/57; BP 130/68; PULSE 80; PULSE 83; TEMP 36.1; TEMP 36.2
[2022-11-08 16:09] LABS: Bedside Glucose 115 mg/dL (74-106)
[2022-11-08 16:09] LABS: Bedside Glucose 128 mg/dL (74-106)
[2022-11-08 16:09] LABS: Bedside Glucose 105 mg/dL (74-106)
[2022-11-08 16:09] LABS: Bedside Glucose 164 mg/dL (74-106)
[2022-11-08 16:09] LABS: Bedside Glucose 137 mg/dL (74-106)
[2022-11-08 16:09] LABS: Bedside Glucose 111 mg/dL (74-106)
[2022-11-08 16:09] LABS: Bedside Glucose 112 mg/dL (74-106)
[2022-11-09 08:56] VITALS: BP 118/57; PULSE 83; TEMP 35.6
[2022-11-09 13:12] LABS: Bedside Glucose 201 mg/dL (74-106)
--- NOTE | 2022-11-09 13:54 | PCM.HBO.PN ---
History of Present Illness Date of Service: 11/09/22 Chief Complaint: Non healing Left stump/TMA wound/ulcer History of Wound: Mr. Villa is a 57-year-old currently following up with Dr. 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 He is status post TMA of his left foot. Due to chronicity and nonhealing, recommendations was made for hyperbaric oxygen treatment. History of end-stage renal disease, typically has dialysis Tuesday, and Tuesday. He states that apart from his chronic renal disease he is otherwise well. History of diabetes and has been working on optimal control, most recent A1c per patient was less than 6. No known history of lung disease, history of pulmonary nodule for which she was seen in clinic by primary today. Also denies any history of congestive heart failure. Prior history of mild cataract but denies any ear pain or congestion. Subjective Subjective Today is the 3rd treatment of hyperbaric oxygen therapy.? The patient is scheduled for 30 treatments total. Tolerance of hyperbaric oxygen therapy: Hyperbaric oxygen therapy was administered as per the facility's protocol.? Hyperbaric oxygen therapy was administered at 2.0 EVI in 100% oxygen for 90 minutes without air breaks.? The patient tolerated hyperbaric oxygen therapy well, without complications or complaints. Upon emergence of the hyperbaric chamber, the patient's vital signs remained stable.? He was discharged in good condition. See blood glucose results documented elsewhere. He is reporting sinus tenderness and runny nose. Objective Data Objective Data Vital Signs: Vital Signs Temp Pulse Resp BP 96.1 F L 83 18 118/57 L 11/09/22 08:56 11/09/22 08:56 11/04/22 15:41 11/09/22 08:56 Lab / Micro Data Labs: Laboratory Results - last 24 hr 11/08/22 12:54: POC Glucose 111 H 11/08/22 12:57: POC Glucose 105 11/08/22 13:10: POC Glucose 112 H 11/08/22 13:14: POC Glucose 128 H 11/08/22 13:26: POC Glucose 115 H 11/08/22 13:27: POC Glucose 137 H 11/08/22 15:50: POC Glucose 164 H 11/09/22 12:54: POC Glucose 201 H Exam Physical Exam Const alert General Appearance: cooperative HEENT normocephalic External Ear: external ears normal Tympanic Membrane: TM's normal bilaterally Neck General: normal visual inspection Chest inspection of chest normal Resp normal respiratory effort and normal air movement Effort and Inspection: able to speak in complete sentences Auscultation: clear to auscultation bilaterally Cardio regular rate and regular rhythm Psych mental status grossly normal Assessment/Plan Assessment/Plan (1) Rhinitis: CODE(S): J31.0 - Chronic rhinitis QUALIFIERS: Rhinitis type: unspecified Qualified Code(s): J31.0 - Chronic rhinitis PLAN: Add Flonase 1 spray each nostril twice daily. (2) Diabetic infection of left foot: CODE(S): E11.628 - Type 2 diabetes mellitus with other skin complications; L08.9 - Local infection of the skin and subcutaneous tissue, unspecified PLAN: He is tolerating hyperbaric oxygen therapy, he is benefiting from the therapy which will be continued per his medical plan.
[2022-11-09 15:46] VITALS: BP 143/64; BP 162/80; PULSE 76; PULSE 91; TEMP 35.6; TEMP 36.1
[2022-11-09 16:00] LABS: Bedside Glucose 229 mg/dL (74-106)
--- NOTE | 2022-11-10 14:12 | PCM.HBO.PN ---
History of Present Illness Date of Service: 11/10/22 Chief Complaint: Non healing Left stump/TMA wound/ulcer History of Wound: Mr. Villa is a 57-year-old currently following up with Dr. 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 He is status post TMA of his left foot. Due to chronicity and nonhealing, recommendations was made for hyperbaric oxygen treatment. History of end-stage renal disease, typically has dialysis Tuesday, and Tuesday. He states that apart from his chronic renal disease he is otherwise well. History of diabetes and has been working on optimal control, most recent A1c per patient was less than 6. No known history of lung disease, history of pulmonary nodule for which she was seen in clinic by primary today. Also denies any history of congestive heart failure. Prior history of mild cataract but denies any ear pain or congestion. Subjective Subjective Today is the 4th treatment of hyperbaric oxygen therapy.? The patient is scheduled for 30 treatments total. Tolerance of hyperbaric oxygen therapy: Hyperbaric oxygen therapy was administered as per the facility's protocol.? Hyperbaric oxygen therapy was administered at 2.0 EVI in 100% oxygen for 90 minutes without air breaks.? The patient tolerated hyperbaric oxygen therapy well, without complications or complaints. Upon emergence of the hyperbaric chamber, the patient's vital signs remained stable.? He was discharged in good condition. See blood glucose results documented elsewhere. Objective Data Objective Data Vital Signs: Vital Signs Temp Pulse Resp BP 96.9 F L 76 18 162/80 H 11/09/22 15:46 11/09/22 15:46 11/04/22 15:41 11/09/22 15:46 Lab / Micro Data Labs: Laboratory Results - last 24 hr 11/09/22 15:19: POC Glucose 229 H Exam Physical Exam Const alert General Appearance: cooperative HEENT normocephalic External Ear: external ears normal Tympanic Membrane: TM's normal bilaterally Neck General: normal visual inspection Chest inspection of chest normal Resp normal respiratory effort and normal air movement Effort and Inspection: able to speak in complete sentences Auscultation: clear to auscultation bilaterally Cardio regular rate and regular rhythm Psych mental status grossly normal Assessment/Plan Assessment/Plan (1) Diabetic infection of left foot: CODE(S): E11.628 - Type 2 diabetes mellitus with other skin complications; L08.9 - Local infection of the skin and subcutaneous tissue, unspecified PLAN: He is tolerating hyperbaric oxygen therapy, he is benefiting from the therapy which will be continued per his medical plan.
[2022-11-10 15:55] LABS: Bedside Glucose 142 mg/dL (74-106)
[2022-11-11 06:48] VITALS: BP 141/75; BP 146/69; PULSE 80; PULSE 89; RESP 18; TEMP 36.6
[2022-11-11 13:11] LABS: Bedside Glucose 171 mg/dL (74-106)
--- NOTE | 2022-11-11 13:11 | PCM.HBO.PN ---
History of Present Illness Date of Service: 11/11/22 Chief Complaint: Non healing Left stump/TMA wound/ulcer History of Wound: Mr. Villa is a 57-year-old currently following up with Dr. 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 He is status post TMA of his left foot. Due to chronicity and nonhealing, recommendations was made for hyperbaric oxygen treatment. History of end-stage renal disease, typically has dialysis Tuesday, and Tuesday. He states that apart from his chronic renal disease he is otherwise well. History of diabetes and has been working on optimal control, most recent A1c per patient was less than 6. No known history of lung disease, history of pulmonary nodule for which she was seen in clinic by primary today. Also denies any history of congestive heart failure. Prior history of mild cataract but denies any ear pain or congestion. Subjective Subjective Today is the 5th treatment of hyperbaric oxygen therapy.? The patient is scheduled for 30 treatments total. Tolerance of hyperbaric oxygen therapy: Hyperbaric oxygen therapy was administered as per the facility's protocol.? Hyperbaric oxygen therapy was administered at 2.0 EVI in 100% oxygen for 90 minutes without air breaks.? The patient tolerated hyperbaric oxygen therapy well, without complications or complaints. Upon emergence of the hyperbaric chamber, the patient's vital signs remained stable.? He was discharged in good condition. See blood glucose results documented elsewhere. Objective Data Objective Data Vital Signs: Vital Signs Temp Pulse Resp BP 97.8 F 89 18 141/75 H 11/11/22 06:48 11/11/22 06:48 11/11/22 06:48 11/11/22 06:48 Lab / Micro Data Labs: Laboratory Results - last 24 hr 11/10/22 15:24: POC Glucose 142 H 11/11/22 12:54: POC Glucose 171 H Exam Physical Exam Const alert General Appearance: cooperative HEENT normocephalic External Ear: external ears normal Tympanic Membrane: TM's normal bilaterally Neck General: normal visual inspection Chest inspection of chest normal Resp normal respiratory effort and normal air movement Effort and Inspection: able to speak in complete sentences Auscultation: clear to auscultation bilaterally Cardio regular rate and regular rhythm Psych mental status grossly normal Assessment/Plan Assessment/Plan (1) Diabetic infection of left foot: CODE(S): E11.628 - Type 2 diabetes mellitus with other skin complications; L08.9 - Local infection of the skin and subcutaneous tissue, unspecified PLAN: He is tolerating hyperbaric oxygen therapy, he is benefiting from the therapy which will be continued per his medical plan.
[2022-11-11 15:23] LABS: Bedside Glucose 179 mg/dL (74-106)
[2022-11-11 15:39] VITALS: BP 150/77; BP 156/87; PULSE 93; PULSE 98; RESP 18; TEMP 36.4; TEMP 36.6
[2022-11-12 13:04] LABS: Bedside Glucose 147 mg/dL (74-106)
--- NOTE | 2022-11-12 13:14 | PCM.HBO.PN ---
History of Present Illness Date of Service: 11/12/22 Chief Complaint: Non healing Left stump/TMA wound/ulcer History of Wound: Mr. Villa is a 57-year-old currently following up with Dr. 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 He is status post TMA of his left foot. Due to chronicity and nonhealing, recommendations was made for hyperbaric oxygen treatment. History of end-stage renal disease, typically has dialysis Tuesday, and Tuesday. He states that apart from his chronic renal disease he is otherwise well. History of diabetes and has been working on optimal control, most recent A1c per patient was less than 6. No known history of lung disease, history of pulmonary nodule for which she was seen in clinic by primary today. Also denies any history of congestive heart failure. Prior history of mild cataract but denies any ear pain or congestion. Subjective Subjective Today is the 6th treatment of hyperbaric oxygen therapy.? The patient is scheduled for 30 treatments total. Tolerance of hyperbaric oxygen therapy: Hyperbaric oxygen therapy was administered as per the facility's protocol.? Hyperbaric oxygen therapy was administered at 2.0 EVI in 100% oxygen for 90 minutes without air breaks.? The patient tolerated hyperbaric oxygen therapy well, without complications or complaints. Upon emergence of the hyperbaric chamber, the patient's vital signs remained stable.? He was discharged in good condition. See blood glucose results documented elsewhere. Objective Data Objective Data Vital Signs: Vital Signs Temp Pulse Resp BP 97.8 F 93 18 150/77 H 11/11/22 15:39 11/11/22 15:39 11/11/22 15:39 11/11/22 15:39 Lab / Micro Data Labs: Laboratory Results - last 24 hr 11/11/22 15:04: POC Glucose 179 H 11/12/22 12:46: POC Glucose 147 H Exam Physical Exam Const alert General Appearance: cooperative HEENT normocephalic External Ear: external ears normal Tympanic Membrane: TM's normal bilaterally Neck General: normal visual inspection Chest inspection of chest normal Resp normal respiratory effort and normal air movement Effort and Inspection: able to speak in complete sentences Auscultation: clear to auscultation bilaterally Cardio regular rate and regular rhythm Psych mental status grossly normal Assessment/Plan Assessment/Plan (1) Diabetic infection of left foot: CODE(S): E11.628 - Type 2 diabetes mellitus with other skin complications; L08.9 - Local infection of the skin and subcutaneous tissue, unspecified PLAN: He is tolerating hyperbaric oxygen therapy, he is benefiting from the therapy which will be continued per his medical plan.
[2022-11-12 15:16] LABS: Bedside Glucose 160 mg/dL (74-106)
[2022-11-12 15:22] VITALS: BP 135/60; BP 141/64; PULSE 91; PULSE 92; RESP 18; TEMP 36.4
--- NOTE | 2022-11-16 10:58 | PCM.HBO.PN ---
History of Present Illness Date of Service: 11/16/22 Chief Complaint: Non healing Left stump/TMA wound/ulcer History of Wound: Mr. Villa is a 57-year-old currently following up with Dr. 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 He is status post TMA of his left foot. Due to chronicity and nonhealing, recommendations was made for hyperbaric oxygen treatment. History of end-stage renal disease, typically has dialysis Tuesday, and Tuesday. He states that apart from his chronic renal disease he is otherwise well. History of diabetes and has been working on optimal control, most recent A1c per patient was less than 6. No known history of lung disease, history of pulmonary nodule for which she was seen in clinic by primary today. Also denies any history of congestive heart failure. Prior history of mild cataract but denies any ear pain or congestion. Subjective Subjective Today is the 7th treatment of hyperbaric oxygen therapy.? The patient is scheduled for 30 treatments total. Tolerance of hyperbaric oxygen therapy: Hyperbaric oxygen therapy was administered as per the facility's protocol.? Hyperbaric oxygen therapy was administered at 2.0 EVI in 100% oxygen for 90 minutes without air breaks.? The patient tolerated hyperbaric oxygen therapy well, without complications or complaints. Upon emergence of the hyperbaric chamber, the patient's vital signs remained stable.? He was discharged in good condition. See blood glucose results documented elsewhere. Objective Data Objective Data Vital Signs: Vital Signs Temp Pulse Resp BP 97.6 F L 91 18 141/64 H 11/12/22 15:22 11/12/22 15:22 11/12/22 15:22 11/12/22 15:22 Exam Physical Exam Const alert General Appearance: cooperative HEENT normocephalic External Ear: external ears normal Tympanic Membrane: TM's normal bilaterally Neck General: normal visual inspection Chest inspection of chest normal Resp normal respiratory effort and normal air movement Effort and Inspection: able to speak in complete sentences Auscultation: clear to auscultation bilaterally Cardio regular rate and regular rhythm Psych mental status grossly normal Assessment/Plan Assessment/Plan (1) Diabetic infection of left foot: CODE(S): E11.628 - Type 2 diabetes mellitus with other skin complications; L08.9 - Local infection of the skin and subcutaneous tissue, unspecified PLAN: He is tolerating hyperbaric oxygen therapy, he is benefiting from the therapy which will be continued per his medical plan.
[2022-11-16 12:21] LABS: Bedside Glucose 205 mg/dL (74-106)
[2022-11-16 12:29] VITALS: BP 135/77; BP 140/65; PULSE 90; PULSE 91; RESP 18; TEMP 35.9; TEMP 36.2
--- NOTE | 2022-11-17 13:18 | PCM.HBO.PN ---
History of Present Illness Date of Service: 11/17/22 Chief Complaint: Non healing Left stump/TMA wound/ulcer History of Wound: Mr. Villa is a 57-year-old currently following up with Dr. 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 He is status post TMA of his left foot. Due to chronicity and nonhealing, recommendations was made for hyperbaric oxygen treatment. History of end-stage renal disease, typically has dialysis Tuesday, and Tuesday. He states that apart from his chronic renal disease he is otherwise well. History of diabetes and has been working on optimal control, most recent A1c per patient was less than 6. No known history of lung disease, history of pulmonary nodule for which she was seen in clinic by primary today. Also denies any history of congestive heart failure. Prior history of mild cataract but denies any ear pain or congestion. Subjective Subjective Today is the 8th treatment of hyperbaric oxygen therapy.? The patient is scheduled for 30 treatments total. Tolerance of hyperbaric oxygen therapy: Hyperbaric oxygen therapy was administered as per the facility's protocol.? Hyperbaric oxygen therapy was administered at 2.0 EVI in 100% oxygen for 90 minutes without air breaks.? The patient tolerated hyperbaric oxygen therapy well, without complications or complaints. Upon emergence of the hyperbaric chamber, the patient's vital signs remained stable.? He was discharged in good condition. See blood glucose results documented elsewhere. Objective Data Objective Data Vital Signs: Vital Signs Temp Pulse Resp BP 96.7 F L 91 18 135/77 H 11/16/22 12:29 11/16/22 12:29 11/16/22 12:29 11/16/22 12:29 Exam Physical Exam Const alert General Appearance: cooperative HEENT normocephalic External Ear: external ears normal Tympanic Membrane: TM's normal bilaterally Neck General: normal visual inspection Chest inspection of chest normal Resp normal respiratory effort and normal air movement Effort and Inspection: able to speak in complete sentences Auscultation: clear to auscultation bilaterally Cardio regular rate and regular rhythm Psych mental status grossly normal Assessment/Plan Assessment/Plan (1) Diabetic infection of left foot: CODE(S): E11.628 - Type 2 diabetes mellitus with other skin complications; L08.9 - Local infection of the skin and subcutaneous tissue, unspecified PLAN: He is tolerating hyperbaric oxygen therapy, he is benefiting from the therapy which will be continued per his medical plan.
[2022-11-17 13:25] LABS: Bedside Glucose 134 mg/dL (74-106)
[2022-11-17 15:17] VITALS: BP 120/67; BP 140/72; PULSE 78; PULSE 86; TEMP 35.6; TEMP 36.2
[2022-11-17 15:28] LABS: Bedside Glucose 143 mg/dL (74-106)
--- NOTE | 2022-11-18 13:07 | PCM.HBO.PN ---
History of Present Illness Date of Service: 11/18/22 Chief Complaint: Non healing Left stump/TMA wound/ulcer History of Wound: Mr. Villa is a 57-year-old currently following up with Dr. 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 He is status post TMA of his left foot. Due to chronicity and nonhealing, recommendations was made for hyperbaric oxygen treatment. History of end-stage renal disease, typically has dialysis Tuesday, and Tuesday. He states that apart from his chronic renal disease he is otherwise well. History of diabetes and has been working on optimal control, most recent A1c per patient was less than 6. No known history of lung disease, history of pulmonary nodule for which she was seen in clinic by primary today. Also denies any history of congestive heart failure. Prior history of mild cataract but denies any ear pain or congestion. Subjective Subjective Today is the 9th treatment of hyperbaric oxygen therapy.? The patient is scheduled for 30 treatments total. Tolerance of hyperbaric oxygen therapy: Hyperbaric oxygen therapy was administered as per the facility's protocol.? Hyperbaric oxygen therapy was administered at 2.0 EVI in 100% oxygen for 90 minutes without air breaks.? The patient tolerated hyperbaric oxygen therapy well, without complications or complaints. Upon emergence of the hyperbaric chamber, the patient's vital signs remained stable.? He was discharged in good condition. See blood glucose results documented elsewhere. Objective Data Objective Data Vital Signs: Vital Signs Temp Pulse Resp BP 97.1 F L 86 18 140/72 H 11/17/22 15:17 11/17/22 15:17 11/16/22 12:29 11/17/22 15:17 Lab / Micro Data Labs: Laboratory Results - last 24 hr 11/17/22 12:51: POC Glucose 134 H 11/17/22 14:58: POC Glucose 143 H Exam Physical Exam Const alert General Appearance: cooperative HEENT normocephalic External Ear: external ears normal Tympanic Membrane: TM's normal bilaterally Neck General: normal visual inspection Chest inspection of chest normal Resp normal respiratory effort and normal air movement Effort and Inspection: able to speak in complete sentences Auscultation: clear to auscultation bilaterally Cardio regular rate and regular rhythm Psych mental status grossly normal Assessment/Plan Assessment/Plan (1) Diabetic infection of left foot: CODE(S): E11.628 - Type 2 diabetes mellitus with other skin complications; L08.9 - Local infection of the skin and subcutaneous tissue, unspecified PLAN: He is tolerating hyperbaric oxygen therapy, he is benefiting from the therapy which will be continued per his medical plan.
[2022-11-18 15:21] VITALS: BP 136/56; BP 143/69; PULSE 84; RESP 18; TEMP 36.4; TEMP 37
[2022-11-18 15:35] LABS: Bedside Glucose 175 mg/dL (74-106)
[2022-11-19 06:25] LABS: Bedside Glucose 179 mg/dL (74-106)
[2022-11-19 13:00] LABS: Bedside Glucose 161 mg/dL (74-106)
--- NOTE | 2022-11-19 13:11 | PCM.HBO.PN ---
History of Present Illness Date of Service: 11/19/22 Chief Complaint: Non healing Left stump/TMA wound/ulcer History of Wound: Mr. Villa is a 57-year-old currently following up with Dr. 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 He is status post TMA of his left foot. Due to chronicity and nonhealing, recommendations was made for hyperbaric oxygen treatment. History of end-stage renal disease, typically has dialysis Tuesday, and Tuesday. He states that apart from his chronic renal disease he is otherwise well. History of diabetes and has been working on optimal control, most recent A1c per patient was less than 6. No known history of lung disease, history of pulmonary nodule for which she was seen in clinic by primary today. Also denies any history of congestive heart failure. Prior history of mild cataract but denies any ear pain or congestion. Subjective Subjective Today is the 10th treatment of hyperbaric oxygen therapy.? The patient is scheduled for 30 treatments total. Tolerance of hyperbaric oxygen therapy: Hyperbaric oxygen therapy was administered as per the facility's protocol.? Hyperbaric oxygen therapy was administered at 2.0 EVI in 100% oxygen for 90 minutes without air breaks.? The patient tolerated hyperbaric oxygen therapy well, without complications or complaints. Upon emergence of the hyperbaric chamber, the patient's vital signs remained stable.? He was discharged in good condition. See blood glucose results documented elsewhere. Objective Data Objective Data Vital Signs: Vital Signs Temp Pulse Resp BP 97.6 F L 84 18 143/69 H 11/18/22 15:21 11/18/22 15:21 11/18/22 15:21 11/18/22 15:21 Lab / Micro Data Labs: Laboratory Results - last 24 hr 11/16/22 09:42: POC Glucose 179 H 11/18/22 14:59: POC Glucose 175 H 11/19/22 12:43: POC Glucose 161 H Exam Physical Exam Const alert General Appearance: cooperative HEENT normocephalic External Ear: external ears normal Tympanic Membrane: TM's normal bilaterally Neck General: normal visual inspection Chest inspection of chest normal Resp normal respiratory effort and normal air movement Effort and Inspection: able to speak in complete sentences Auscultation: clear to auscultation bilaterally Cardio regular rate and regular rhythm Psych mental status grossly normal Assessment/Plan Assessment/Plan (1) Diabetic infection of left foot: CODE(S): E11.628 - Type 2 diabetes mellitus with other skin complications; L08.9 - Local infection of the skin and subcutaneous tissue, unspecified PLAN: He is tolerating hyperbaric oxygen therapy, he is benefiting from the therapy which will be continued per his medical plan.
[2022-11-19 13:32] LABS: Bedside Glucose 155 mg/dL (74-106)
[2022-11-19 15:24] LABS: Bedside Glucose 148 mg/dL (74-106)
[2022-11-19 15:35] VITALS: BP 117/73; BP 134/111; PULSE 80; PULSE 88; RESP 16; TEMP 35.7; TEMP 36.2
== END 2022-11-19 23:59 | disposition home or self-care (01) ==
LOC: WC 13:00
PROVIDERS: PCP Registered Nurse; Referring Provider Podiatrist; Visit Provider Internal Medicine
DX: E11.621 Type 2 diabetes mellitus with foot ulcer (principal); L97.524 Non-pressure chronic ulcer of other part of left foot with necrosis of bone; Z99.2 Dependence on renal dialysis; E11.22 Type 2 diabetes mellitus with diabetic chronic kidney disease; E11.628 Type 2 diabetes mellitus with other skin complications; N18.6 End stage renal disease; J31.0 Chronic rhinitis; L08.9 Local infection of the skin and subcutaneous tissue, unspecified
CPT/HCPCS: 82962; 99183; G0277

== ENCOUNTER 2022-12-10 13:00 | Outpatient (RCR) | payer MEDICARE, MEDICAID, SELFPAY ==
[2022-11-20 01:32] VITALS: BP 134/111; PULSE 80; RESP 16; TEMP 36.2
--- NOTE | 2022-11-24 12:55 | PCM.HBO.PN ---
History of Present Illness Date of Service: 11/24/22 Chief Complaint: Non healing Left stump/TMA wound/ulcer History of Wound: Mr. Villa is a 57-year-old currently following up with Dr. 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 He is status post TMA of his left foot. Due to chronicity and nonhealing, recommendations was made for hyperbaric oxygen treatment. History of end-stage renal disease, typically has dialysis Tuesday, and Tuesday. He states that apart from his chronic renal disease he is otherwise well. History of diabetes and has been working on optimal control, most recent A1c per patient was less than 6. No known history of lung disease, history of pulmonary nodule for which she was seen in clinic by primary today. Also denies any history of congestive heart failure. Prior history of mild cataract but denies any ear pain or congestion. Subjective Subjective Today is the 11th treatment of hyperbaric oxygen therapy.? The patient is scheduled for 30 treatments total. Tolerance of hyperbaric oxygen therapy: Hyperbaric oxygen therapy was administered as per the facility's protocol.? Hyperbaric oxygen therapy was administered at 2.0 EVI in 100% oxygen for 90 minutes without air breaks.? The patient tolerated hyperbaric oxygen therapy well, without complications or complaints. Upon emergence of the hyperbaric chamber, the patient's vital signs remained stable.? He was discharged in good condition. See blood glucose results documented elsewhere. Objective Data Objective Data Vital Signs: Vital Signs Temp Pulse Resp BP 97.1 F L 80 16 134/111 H 11/20/22 01:32 11/20/22 01:32 11/20/22 01:32 11/20/22 01:32 Exam Physical Exam Const alert General Appearance: cooperative HEENT normocephalic External Ear: external ears normal Tympanic Membrane: TM's normal bilaterally Neck General: normal visual inspection Chest inspection of chest normal Resp normal respiratory effort and normal air movement Effort and Inspection: able to speak in complete sentences Auscultation: clear to auscultation bilaterally Cardio regular rate and regular rhythm Psych mental status grossly normal Assessment/Plan Assessment/Plan (1) Diabetic infection of left foot: CODE(S): E11.628 - Type 2 diabetes mellitus with other skin complications; L08.9 - Local infection of the skin and subcutaneous tissue, unspecified PLAN: He is tolerating hyperbaric oxygen therapy, he is benefiting from the therapy which will be continued per his medical plan.
[2022-11-24 13:02] LABS: Bedside Glucose 135 mg/dL (74-106)
[2022-11-24 15:04] VITALS: BP 133/64; BP 147/87; PULSE 85; RESP 16; RESP 18; TEMP 36.4
[2022-11-24 15:18] LABS: Bedside Glucose 130 mg/dL (74-106)
--- NOTE | 2022-11-25 13:06 | PCM.HBO.PN ---
History of Present Illness Date of Service: 11/25/22 Chief Complaint: Non healing Left stump/TMA wound/ulcer History of Wound: Mr. Villa is a 57-year-old currently following up with Dr. 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 He is status post TMA of his left foot. Due to chronicity and nonhealing, recommendations was made for hyperbaric oxygen treatment. History of end-stage renal disease, typically has dialysis Tuesday, and Tuesday. He states that apart from his chronic renal disease he is otherwise well. History of diabetes and has been working on optimal control, most recent A1c per patient was less than 6. No known history of lung disease, history of pulmonary nodule for which she was seen in clinic by primary today. Also denies any history of congestive heart failure. Prior history of mild cataract but denies any ear pain or congestion. Subjective Subjective Today is the 12th treatment of hyperbaric oxygen therapy.? The patient is scheduled for 30 treatments total. Tolerance of hyperbaric oxygen therapy: Hyperbaric oxygen therapy was administered as per the facility's protocol.? Hyperbaric oxygen therapy was administered at 2.0 EVI in 100% oxygen for 90 minutes without air breaks.? The patient tolerated hyperbaric oxygen therapy well, without complications or complaints. Upon emergence of the hyperbaric chamber, the patient's vital signs remained stable.? He was discharged in good condition. See blood glucose results documented elsewhere. Objective Data Objective Data Vital Signs: Vital Signs Temp Pulse Resp BP 97.6 F L 85 18 147/87 H 11/24/22 15:04 11/24/22 15:04 11/24/22 15:04 11/24/22 15:04 Lab / Micro Data Labs: Laboratory Results - last 24 hr 11/24/22 14:49: POC Glucose 130 H Exam Physical Exam Const alert General Appearance: cooperative HEENT normocephalic External Ear: external ears normal Tympanic Membrane: TM's normal bilaterally Neck General: normal visual inspection Chest inspection of chest normal Resp normal respiratory effort and normal air movement Effort and Inspection: able to speak in complete sentences Auscultation: clear to auscultation bilaterally Cardio Negative for regular rate or regular rhythm Psych mental status grossly normal Nursing Assessment and Debridement Post-Debridement Measurements and Additional Note: Post-Debridement Measurements/Treatment WC - Nurse 3 - General Ulcer D/C NN Start: 11/24/22 15:03 Freq: Status: Active Protocol: Activity Type Activity Date Activity User E-sign Co-sign Detail Recorded Client Recorded Date Recorded By Document 11/24/22 15:04 ETHEL [id number] 11/24/22 15:09 ETHEL 11/24/22 15:04 Pain Scale: 0-10 Numeric Is Patient Pain Free? Yes WC - Visit Discharge Discharge Condition Stable Ambulatory Status Wheelchair Transportation [facility] Notes: Patient tolerated HBO treatment. Verbalized no issues and was wheeled out to transport safely. Assessment/Plan Assessment/Plan (1) Diabetic infection of left foot: CODE(S): E11.628 - Type 2 diabetes mellitus with other skin complications; L08.9 - Local infection of the skin and subcutaneous tissue, unspecified PLAN: He is tolerating hyperbaric oxygen therapy, he is benefiting from the therapy which will be continued per his medical plan.
[2022-11-25 13:18] LABS: Bedside Glucose 178 mg/dL (74-106)
[2022-11-25 15:29] LABS: Bedside Glucose 244 mg/dL (74-106)
[2022-11-25 15:32] VITALS: BP 155/66; BP 163/75; PULSE 87; RESP 18; TEMP 36.4; TEMP 36.6
[2022-11-29 15:26] LABS: Bedside Glucose 201 mg/dL (74-106)
[2022-11-29 15:27] VITALS: BP 153/71; BP 154/71; PULSE 80; PULSE 81; RESP 18; TEMP 36.4; TEMP 36.6
--- NOTE | 2022-11-30 15:12 | WC ---
Patient was no show for HBO at 1300. Patient just called in and stated he had transportation issues today but is planning to be at the wound center tomorrow for his HBO treatment.
[2022-12-01 13:05] LABS: Bedside Glucose 234 mg/dL (74-106)
--- NOTE | 2022-12-01 13:24 | PCM.HBO.PN ---
History of Present Illness Date of Service: 12/01/22 Chief Complaint: Non healing Left stump/TMA wound/ulcer History of Wound: Mr. Villa is a 57-year-old currently following up with Dr. 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 He is status post TMA of his left foot. Due to chronicity and nonhealing, recommendations was made for hyperbaric oxygen treatment. History of end-stage renal disease, typically has dialysis Tuesday, and Tuesday. He states that apart from his chronic renal disease he is otherwise well. History of diabetes and has been working on optimal control, most recent A1c per patient was less than 6. No known history of lung disease, history of pulmonary nodule for which she was seen in clinic by primary today. Also denies any history of congestive heart failure. Prior history of mild cataract but denies any ear pain or congestion. Subjective Subjective Today is the 14th treatment of hyperbaric oxygen therapy.? The patient is scheduled for 30 treatments total. Tolerance of hyperbaric oxygen therapy: Hyperbaric oxygen therapy was administered as per the facility's protocol.? Hyperbaric oxygen therapy was administered at 2.0 EVI in 100% oxygen for 90 minutes without air breaks.? The patient tolerated hyperbaric oxygen therapy well, without complications or complaints. Upon emergence of the hyperbaric chamber, the patient's vital signs remained stable.? He was discharged in good condition. See blood glucose results documented elsewhere. Objective Data Objective Data Vital Signs: Vital Signs Temp Pulse Resp BP 97.8 F 81 18 154/71 H 11/29/22 15:27 11/29/22 15:27 11/29/22 15:27 11/29/22 15:27 Lab / Micro Data Labs: Laboratory Results - last 24 hr 12/01/22 12:47: POC Glucose 234 H Exam Physical Exam Const alert General Appearance: cooperative HEENT normocephalic External Ear: external ears normal Tympanic Membrane: TM's normal bilaterally Neck General: normal visual inspection Chest inspection of chest normal Resp normal respiratory effort and normal air movement Effort and Inspection: able to speak in complete sentences Auscultation: clear to auscultation bilaterally Cardio Negative for regular rate or regular rhythm Psych mental status grossly normal Assessment/Plan Assessment/Plan (1) Diabetic infection of left foot: CODE(S): E11.628 - Type 2 diabetes mellitus with other skin complications; L08.9 - Local infection of the skin and subcutaneous tissue, unspecified PLAN: He is tolerating hyperbaric oxygen therapy, he is benefiting from the therapy which will be continued per his medical plan.
[2022-12-01 13:29] VITALS: BP 148/56; BP 150/68; PULSE 82; PULSE 84; RESP 16; RESP 18; TEMP 35.7; TEMP 36.7
[2022-12-01 15:29] LABS: Bedside Glucose 226 mg/dL (74-106)
--- NOTE | 2022-12-06 12:55 | PCM.HBO.PN ---
History of Present Illness Date of Service: 12/06/22 Chief Complaint: Non healing Left stump/TMA wound/ulcer History of Wound: Mr. Villa is a 57-year-old currently following up with Dr. 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 He is status post TMA of his left foot. Due to chronicity and nonhealing, recommendations was made for hyperbaric oxygen treatment. History of end-stage renal disease, typically has dialysis Tuesday, and Tuesday. He states that apart from his chronic renal disease he is otherwise well. History of diabetes and has been working on optimal control, most recent A1c per patient was less than 6. No known history of lung disease, history of pulmonary nodule for which she was seen in clinic by primary today. Also denies any history of congestive heart failure. Prior history of mild cataract but denies any ear pain or congestion. Subjective Subjective Today is the 15th treatment of hyperbaric oxygen therapy.? The patient is scheduled for 30 treatments total. Tolerance of hyperbaric oxygen therapy: Hyperbaric oxygen therapy was administered as per the facility's protocol.? Hyperbaric oxygen therapy was administered at 2.0 EVI in 100% oxygen for 90 minutes without air breaks.? The patient tolerated hyperbaric oxygen therapy well, without complications or complaints. Upon emergence of the hyperbaric chamber, the patient's vital signs remained stable.? He was discharged in good condition. See blood glucose results documented elsewhere. Objective Data Objective Data Vital Signs: Vital Signs Temp Pulse Resp BP 98.0 F 84 18 148/56 H 12/01/22 13:29 12/01/22 13:29 12/01/22 13:29 12/01/22 13:29 Exam Physical Exam Const alert General Appearance: cooperative HEENT normocephalic External Ear: external ears normal Tympanic Membrane: TM's normal bilaterally Neck General: normal visual inspection Chest inspection of chest normal Resp normal respiratory effort and normal air movement Effort and Inspection: able to speak in complete sentences Auscultation: clear to auscultation bilaterally Cardio Negative for regular rate or regular rhythm Psych mental status grossly normal Assessment/Plan Assessment/Plan (1) Diabetic infection of left foot: CODE(S): E11.628 - Type 2 diabetes mellitus with other skin complications; L08.9 - Local infection of the skin and subcutaneous tissue, unspecified PLAN: He is tolerating hyperbaric oxygen therapy, he is benefiting from the therapy which will be continued per his medical plan.
[2022-12-06 13:00] LABS: Bedside Glucose 201 mg/dL (74-106)
[2022-12-06 15:14] LABS: Bedside Glucose 184 mg/dL (74-106)
[2022-12-06 16:05] VITALS: BP 133/76; BP 134/57; PULSE 75; PULSE 78; RESP 18; TEMP 36.4
[2022-12-07 10:18] LABS: Bedside Glucose 217 mg/dL (74-106)
--- NOTE | 2022-12-07 10:19 | PCM.HBO.PN ---
History of Present Illness Date of Service: 12/07/22 Chief Complaint: Non healing Left stump/TMA wound/ulcer History of Wound: Mr. Villa is a 57-year-old currently following up with Dr. 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 He is status post TMA of his left foot. Due to chronicity and nonhealing, recommendations was made for hyperbaric oxygen treatment. History of end-stage renal disease, typically has dialysis Tuesday, and Tuesday. He states that apart from his chronic renal disease he is otherwise well. History of diabetes and has been working on optimal control, most recent A1c per patient was less than 6. No known history of lung disease, history of pulmonary nodule for which she was seen in clinic by primary today. Also denies any history of congestive heart failure. Prior history of mild cataract but denies any ear pain or congestion. Subjective Subjective Today is the 16th treatment of hyperbaric oxygen therapy.? The patient is scheduled for 30 treatments total. Tolerance of hyperbaric oxygen therapy: Hyperbaric oxygen therapy was administered as per the facility's protocol.? Hyperbaric oxygen therapy was administered at 2.0 EVI in 100% oxygen for 90 minutes without air breaks.? The patient tolerated hyperbaric oxygen therapy well, without complications or complaints. Upon emergence of the hyperbaric chamber, the patient's vital signs remained stable.? He was discharged in good condition. See blood glucose results documented elsewhere. Objective Data Objective Data Vital Signs: Vital Signs Temp Pulse Resp BP 97.6 F L 78 18 134/57 H 12/06/22 16:05 12/06/22 16:05 12/06/22 16:05 12/06/22 16:05 Lab / Micro Data Labs: Laboratory Results - last 24 hr 12/06/22 12:42: POC Glucose 201 H 12/06/22 14:55: POC Glucose 184 H 12/07/22 10:01: POC Glucose 217 H Exam Physical Exam Const alert General Appearance: cooperative HEENT normocephalic External Ear: external ears normal Tympanic Membrane: TM's normal bilaterally Neck General: normal visual inspection Chest inspection of chest normal Resp normal respiratory effort and normal air movement Effort and Inspection: able to speak in complete sentences Auscultation: clear to auscultation bilaterally Cardio regular rate and regular rhythm Psych mental status grossly normal Assessment/Plan Assessment/Plan (1) Diabetic infection of left foot: CODE(S): E11.628 - Type 2 diabetes mellitus with other skin complications; L08.9 - Local infection of the skin and subcutaneous tissue, unspecified PLAN: He is tolerating hyperbaric oxygen therapy, he is benefiting from the therapy which will be continued per his medical plan.
[2022-12-07 12:11] VITALS: BP 138/72; BP 138/75; PULSE 80; PULSE 82; RESP 18; TEMP 36.4; TEMP 36.7
[2022-12-07 12:52] LABS: Bedside Glucose 216 mg/dL (74-106)
[2022-12-08 12:54] LABS: Bedside Glucose 159 mg/dL (74-106)
--- NOTE | 2022-12-08 12:58 | PCM.HBO.PN ---
History of Present Illness Date of Service: 12/08/22 Chief Complaint: Non healing Left stump/TMA wound/ulcer History of Wound: Mr. Villa is a 57-year-old currently following up with Dr. 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 He is status post TMA of his left foot. Due to chronicity and nonhealing, recommendations was made for hyperbaric oxygen treatment. History of end-stage renal disease, typically has dialysis Tuesday, and Tuesday. He states that apart from his chronic renal disease he is otherwise well. History of diabetes and has been working on optimal control, most recent A1c per patient was less than 6. No known history of lung disease, history of pulmonary nodule for which she was seen in clinic by primary today. Also denies any history of congestive heart failure. Prior history of mild cataract but denies any ear pain or congestion. Subjective Subjective Today is the 17th treatment of hyperbaric oxygen therapy.? The patient is scheduled for 30 treatments total. Tolerance of hyperbaric oxygen therapy: Hyperbaric oxygen therapy was administered as per the facility's protocol.? Hyperbaric oxygen therapy was administered at 2.0 EVI in 100% oxygen for 90 minutes without air breaks.? The patient tolerated hyperbaric oxygen therapy well, without complications or complaints. Upon emergence of the hyperbaric chamber, the patient's vital signs remained stable.? He was discharged in good condition. See blood glucose results documented elsewhere. Objective Data Objective Data Vital Signs: Vital Signs Temp Pulse Resp BP 98.0 F 82 18 138/75 H 12/07/22 12:11 12/07/22 12:11 12/07/22 12:11 12/07/22 12:11 Lab / Micro Data Labs: Laboratory Results - last 24 hr 12/08/22 12:36: POC Glucose 159 H Exam Physical Exam Const alert General Appearance: cooperative HEENT normocephalic External Ear: external ears normal Tympanic Membrane: TM's normal bilaterally Neck General: normal visual inspection Chest inspection of chest normal Resp normal respiratory effort and normal air movement Effort and Inspection: able to speak in complete sentences Auscultation: clear to auscultation bilaterally Cardio regular rate; Negative for regular rhythm Psych mental status grossly normal Assessment/Plan Assessment/Plan (1) Diabetic infection of left foot: CODE(S): E11.628 - Type 2 diabetes mellitus with other skin complications; L08.9 - Local infection of the skin and subcutaneous tissue, unspecified PLAN: He is tolerating hyperbaric oxygen therapy, he is benefiting from the therapy which will be continued per his medical plan.
[2022-12-08 14:42] VITALS: BP 133/71; BP 144/53; PULSE 77; PULSE 78; RESP 18; TEMP 36.3; TEMP 36.6
[2022-12-08 15:09] LABS: Bedside Glucose 175 mg/dL (74-106)
--- NOTE | 2022-12-09 13:44 | PCM.HBO.PN ---
History of Present Illness Date of Service: 12/09/22 Chief Complaint: Non healing Left stump/TMA wound/ulcer History of Wound: Mr. Villa is a 57-year-old currently following up with Dr. 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 He is status post TMA of his left foot. Due to chronicity and nonhealing, recommendations was made for hyperbaric oxygen treatment. History of end-stage renal disease, typically has dialysis Tuesday, and Tuesday. He states that apart from his chronic renal disease he is otherwise well. History of diabetes and has been working on optimal control, most recent A1c per patient was less than 6. No known history of lung disease, history of pulmonary nodule for which she was seen in clinic by primary today. Also denies any history of congestive heart failure. Prior history of mild cataract but denies any ear pain or congestion. Subjective Subjective Today is the 18th treatment of hyperbaric oxygen therapy.? The patient is scheduled for 30 treatments total. Tolerance of hyperbaric oxygen therapy: Hyperbaric oxygen therapy was administered as per the facility's protocol.? Hyperbaric oxygen therapy was administered at 2.0 EVI in 100% oxygen for 90 minutes without air breaks.? The patient tolerated hyperbaric oxygen therapy well, without complications or complaints. Upon emergence of the hyperbaric chamber, the patient's vital signs remained stable.? He was discharged in good condition. See blood glucose results documented elsewhere. Objective Data Objective Data Vital Signs: Vital Signs Temp Pulse Resp BP 97.8 F 78 18 133/71 H 12/08/22 14:42 12/08/22 14:42 12/08/22 14:42 12/08/22 14:42 Lab / Micro Data Labs: Laboratory Results - last 24 hr 12/08/22 14:51: POC Glucose 175 H Exam Physical Exam Const alert General Appearance: cooperative HEENT normocephalic External Ear: external ears normal Tympanic Membrane: TM's normal bilaterally Neck General: normal visual inspection Chest inspection of chest normal Resp normal respiratory effort and normal air movement Effort and Inspection: able to speak in complete sentences Auscultation: clear to auscultation bilaterally Cardio regular rate; Negative for regular rhythm Psych mental status grossly normal Nursing Assessment and Debridement Post-Debridement Measurements and Additional Note: Post-Debridement Measurements/Treatment WC - Nurse 3 - General Ulcer D/C NN Start: 11/24/22 15:03 Freq: Status: Active Protocol: Activity Type Activity Date Activity User E-sign Co-sign Detail Recorded Client Recorded Date Recorded By Document 12/08/22 15:00 ETHEL [id number] 12/08/22 15:01 ETHEL 12/08/22 15:00 Pain Scale: 0-10 Numeric Is Patient Pain Free? Yes WC - Visit Discharge Discharge Condition Stable Ambulatory Status Wheelchair Transportation Private Auto Notes: Uneventful HBO dive today. Patient comfortably waiting on his ride to return to the [facility]. Assessment/Plan Assessment/Plan (1) Diabetic infection of left foot: CODE(S): E11.628 - Type 2 diabetes mellitus with other skin complications; L08.9 - Local infection of the skin and subcutaneous tissue, unspecified PLAN: He is tolerating hyperbaric oxygen therapy, he is benefiting from the therapy which will be continued per his medical plan.
[2022-12-09 13:58] LABS: Bedside Glucose 198 mg/dL (74-106)
[2022-12-09 15:42] VITALS: BP 133/74; BP 149/60; PULSE 83; RESP 16; TEMP 36.6
[2022-12-09 15:48] LABS: Bedside Glucose 206 mg/dL (74-106)
--- NOTE | 2022-12-10 12:50 | PCM.HBO.PN ---
History of Present Illness Date of Service: 12/10/22 Chief Complaint: Non healing Left stump/TMA wound/ulcer History of Wound: Mr. Villa is a 57-year-old currently following up with Dr. 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 He is status post TMA of his left foot. Due to chronicity and nonhealing, recommendations was made for hyperbaric oxygen treatment. History of end-stage renal disease, typically has dialysis Tuesday, and Tuesday. He states that apart from his chronic renal disease he is otherwise well. History of diabetes and has been working on optimal control, most recent A1c per patient was less than 6. No known history of lung disease, history of pulmonary nodule for which she was seen in clinic by primary today. Also denies any history of congestive heart failure. Prior history of mild cataract but denies any ear pain or congestion. Subjective Subjective Today is the th treatment of hyperbaric oxygen therapy.? The patient is scheduled for 30 treatments total. Tolerance of hyperbaric oxygen therapy: Hyperbaric oxygen therapy was administered as per the facility's protocol.? Hyperbaric oxygen therapy was administered at 2.0 EVI in 100% oxygen for 90 minutes without air breaks.? The patient tolerated hyperbaric oxygen therapy well, without complications or complaints. Upon emergence of the hyperbaric chamber, the patient's vital signs remained stable.? He was discharged in good condition. See blood glucose results documented elsewhere. Objective Data Objective Data Vital Signs: Vital Signs Temp Pulse Resp BP 97.8 F 83 16 149/60 H 12/09/22 15:42 12/09/22 15:42 12/09/22 15:42 12/09/22 15:42 Lab / Micro Data Labs: Laboratory Results - last 24 hr 12/09/22 13:20: POC Glucose 198 H 12/09/22 15:30: POC Glucose 206 H Exam Physical Exam Const alert General Appearance: cooperative HEENT normocephalic External Ear: external ears normal Tympanic Membrane: TM's normal bilaterally Neck General: normal visual inspection Chest inspection of chest normal Resp normal respiratory effort and normal air movement Effort and Inspection: able to speak in complete sentences Auscultation: clear to auscultation bilaterally Cardio regular rate and regular rhythm Psych mental status grossly normal Nursing Assessment and Debridement Post-Debridement Measurements and Additional Note: Post-Debridement Measurements/Treatment - Nurse 3 - General Ulcer D/C NN Start: 11/24/22 15:03 Freq: Status: Active Protocol: Activity Type Activity Date Activity User E-sign Co-sign Detail Recorded Client Recorded Date Recorded By Document 12/08/22 15:00 JF [id number] 12/08/22 15:01 JF Document 12/09/22 15:48 MW [id number] 12/09/22 15:49 MW 12/08/22 12/09/22 15:00 15:48 Pain Scale: 0-10 Numeric Is Patient Pain Free? Yes Yes WC - Visit Discharge Discharge Condition Stable Stable Ambulatory Status Wheelchair Wheelchair Transportation Private Auto [id number] Accompanied by self Medication Reconcilliation completed & No provided to patient/care provider Clinical Summary of Care Provided No Notes: Uneventful HBO HBO treatment # dive today. 18 completed. Patient Patient comfortably tolerated well. waiting on his ride to return to the [facility]. Assessment/Plan Assessment/Plan (1) Diabetic infection of left foot: CODE(S): E11.628 - Type 2 diabetes mellitus with other skin complications; L08.9 - Local infection of the skin and subcutaneous tissue, unspecified PLAN: He is tolerating hyperbaric oxygen therapy, he is benefiting from the therapy which will be continued per his medical plan.
[2022-12-10 12:55] LABS: Bedside Glucose 188 mg/dL (74-106)
[2022-12-10 14:55] LABS: Bedside Glucose 208 mg/dL (74-106)
[2022-12-10 15:21] VITALS: BP 113/59; BP 125/60; PULSE 82; PULSE 85; RESP 16; TEMP 36.4; TEMP 36.9
== END 2022-12-20 23:59 | disposition home or self-care (01) ==
LOC: WC 13:00
PROVIDERS: PCP Registered Nurse; Referring Provider Podiatrist; Visit Provider Internal Medicine
DX: E11.621 Type 2 diabetes mellitus with foot ulcer (principal); L97.524 Non-pressure chronic ulcer of other part of left foot with necrosis of bone; E11.628 Type 2 diabetes mellitus with other skin complications; E11.22 Type 2 diabetes mellitus with diabetic chronic kidney disease; N18.6 End stage renal disease; L08.9 Local infection of the skin and subcutaneous tissue, unspecified
CPT/HCPCS: 82962; 99183; G0277

== ENCOUNTER 2023-01-18 12:00 | Outpatient (RCR) | payer MEDICARE, MEDICAID, SELFPAY ==
--- NOTE | 2022-11-29 13:08 | HP.PTEVAL_ITS ---
Patient's Visit Information Visit Information Visit Information: ISABELLA ANDERSON Jr. is a 57 year old M referred to Physical Therapy by Dr. Rodrigo Merida DO with a diagnosis of R CLOSED PROXIMAL HUMERUS FX. Date of Evaluation: 11/29/22 Physical Therapist: Deneen Lopez PT, Cert MDT Visit Plan Frequency: 2-3x /Week Plan: *CHECK AUTH NEXT VISIT: RECORD # OF VISITS APPROVED AND EXPIRATION DATE. CHECK CODES APPROVED WITH POC* ACTIVE AND PASSIVE ROM OF R UE PAIN ALLOWS - SEE SHLD X-RAY [facility] EMR 10/27/22. Subjective Subjective: THIS PATIENT PRESENTS TO PT IN A W/C FROM A TRANSPORTATION SERVICE. HE REPORTS HE IS STAYING AT [facility] IN [facility], [place]. HE STATES HE IS HERE FOR FOR HIS R SHOULDER. HE REPORTS HE FELL ON CONCRETE IN Jun AND BROKE IT AND IT HASN'T BEEN HEALING WELL. HE REPORTS HE IS CURRENTLY USING A BONE STIMULATOR ORDERED BY DR. MERIDA TO HELP IT. 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 HE REPORTS HE CAN'T WALK BECAUSE HE ISN'T SUPPOSED TO PUT WEIGHT ON HIS L FOOT AND HIS R LEG ISN'T STRONG ENOUGH TO HOLD HIM UP. HE REPORTS HE IS CURRENTLY GOING TO DIALYSIS 3 DAYS A WEEK AND TO THE HYPERBARIC CHAMBER 5 DAYS A WEEK. Diagnosis: R CLOSED PROXIMAL HUMERUS FX Present symptoms: CONSTANT R SHLD AND NECK PAIN RANGING 1/10 TO 10/10. INTERMI TTENT WHOLE R UE PAIN Worse: TRYING TO REACH AND MOVING ANY PART OF R UE Better: NOT MOVING IT AND PAIN MEDICINE Disturbed sleep: PATIENT REPORTS HE CAN SLEEP WELL WITH PAIN MEDS. Imaging: SEE [facility] EMR FOR R SHLD X-RAY 10/27/22: STUDY: X-RAY - RIGHT SHOULDER REASON FOR EXAM: Male, 57 years old. Pain. History of proximal right humeral fracture. TECHNIQUE: 4 view(s) of the shoulder. COMPARISON: September 06, 2022. FINDINGS: Stable osteopenia, comminuted impacted fracture of the proximal humerus with marked displacement of the distal fragment and posterior angulation at the fracture site. Stable mild arthrosis of the glenohumeral and acromioclavicular joints. Diffuse soft tissue swelling unchanged. Normal visualized pulmonary apex. RAD/Shoulder min 2 Views IMPRESSION: Stable osteopenia with proximal humeral fracture as described. Electronically Signed: Arthur Scruggs MD at 9:33 EDT PMH/Recent major surgery: Arterial steal syndrome Arthritis Atherosclerotic heart disease of [place] coronary artery without angina pectoris Atrial fibrillation Back pain Cardiology follow-up encounter Chronic renal failure, stage 5 Crohn's disease Dietary restriction ESRD (end stage renal disease) on dialysis ESRD on hemodialysis Frequent falls Gastric reflux History of echocardiogram History of open wound of lower extremity History of renal dialysis History of renal disease Hyperphosphatemia Hypertension Incidental lung nodule Injury of head and neck Insulin dependent diabetes mellitus Lives in residential intermediate 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 NON-AMBULATORY. UPON OBSERVATION HIS R SHLD IS DEFORMED AND HIS RIGHT UE IS SWOLLEN. R UE LIGHT TOUCH SENSATION IS GROSSLY INTACT. HE REPORTS HE IS R HAND DOMINANT. HE IS UNABLE TO MOVE HIS R SHLD AND R ELBOW, FOREARM, WRIST AND HAND STRENGTH IS POOR. HE IS ONLY PARTIALLY ABLE TO MAKE A FIST. HE IS ABLE TO OPPOSE ALL FINGERS WITH HIS THUMB. AROM OF R ELBOW = MINUS 24 DEG EXTENSION TO 100 DEG FLEXION. HE IS ABLE TO FULLY PRONATE AND SUPINATE HIS FOREARM AND ONLY MOVE HIS R WRIST A FEW DEGREES INTO FLEXION AND EXTENSION. CERVICAL MVMT LOSS: FLEX - NIL, EXT - MOD, GUICHO SB - MOD. PATIENT C/O PAIN IN HIS NECK AND PAIN IN HIS RIGHT UE WITH ALL ATTEMPS AT R UE AND NECK ROM TESTING. Balance/Special Test Scores Quick DASH Score: 93.1800 Goals Goal 1:: DECREASE C/O R NECK AND UE SX'S. Goal Time Frame: 6-8 Weeks Goal 2:: INCREASE R UE FUNCTIONAL ROM TO EASE ADL'S. Goal Time Frame: 6-8 Weeks Goal 3:: IMPROVE R UE FUNCTIONAL STRENGTH TO EASE ADL'S. Goal Time Frame: 6-8 Weeks Goal 4:: PATIENT AND/OR CAREGIVER WILL BE INDEP WITH HEP FOR CONTINUED IMPROVEMENT ONCE FORMAL PHYSICAL THERAPY CONCLUDES. Goal Time Frame: 6-8 Weeks Anticipated Interventions Patient/Client Instruction: Educate patient on: Condition, Plan of Care and Risk Factors For the Purpose of:: To improve self management Therapeutic Exercise to Include: Passive ROM and Active ROM Comment: GENTLE ROM ENTIRE R UE WITHOUT INCREASING PAIN. For the Purpose of:: To decrease pain and To increase ROM Text: Thank you for the opportunity to evaluate your patient. For Medicare and Medicare HMO plans, please review the plan of care and approve it. It will need to be FAXED BACK to us at [phone] for Medicare purposes. For Medicare only, by signing this I certify the plan of care. Please let me know if there are questions or concerns regarding this plan of care. Physician Signature: _Date:
--- NOTE | 2022-11-29 13:14 | PCM.HBO.PN ---
History of Present Illness Date of Service: 11/29/22 Chief Complaint: Non healing Left stump/TMA wound/ulcer History of Wound: Mr. Villa is a 57-year-old currently following up with Dr. 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 He is status post TMA of his left foot. Due to chronicity and nonhealing, recommendations was made for hyperbaric oxygen treatment. History of end-stage renal disease, typically has dialysis Tuesday, and Tuesday. He states that apart from his chronic renal disease he is otherwise well. History of diabetes and has been working on optimal control, most recent A1c per patient was less than 6. No known history of lung disease, history of pulmonary nodule for which she was seen in clinic by primary today. Also denies any history of congestive heart failure. Prior history of mild cataract but denies any ear pain or congestion. Subjective Subjective Today is the 13th treatment of hyperbaric oxygen therapy.? The patient is scheduled for 30 treatments total. Tolerance of hyperbaric oxygen therapy: Hyperbaric oxygen therapy was administered as per the facility's protocol.? Hyperbaric oxygen therapy was administered at 2.0 EVI in 100% oxygen for 90 minutes without air breaks.? The patient tolerated hyperbaric oxygen therapy well, without complications or complaints. Upon emergence of the hyperbaric chamber, the patient's vital signs remained stable.? He was discharged in good condition. See blood glucose results documented elsewhere. Exam Physical Exam Const alert General Appearance: cooperative HEENT normocephalic External Ear: external ears normal Tympanic Membrane: TM's normal bilaterally Neck General: normal visual inspection Chest inspection of chest normal Resp normal respiratory effort and normal air movement Effort and Inspection: able to speak in complete sentences Auscultation: clear to auscultation bilaterally Cardio Negative for regular rate or regular rhythm Psych mental status grossly normal Assessment/Plan Assessment/Plan (1) Diabetic infection of left foot: CODE(S): E11.628 - Type 2 diabetes mellitus with other skin complications; L08.9 - Local infection of the skin and subcutaneous tissue, unspecified PLAN: He is tolerating hyperbaric oxygen therapy, he is benefiting from the therapy which will be continued per his medical plan.
--- NOTE | 2023-01-18 14:34 | HP.PTDCSUM_ITS ---
Discharge Summary D/C summary: It has been my pleasure to treat ISABELLA ANDERSON Jr. referred by Dr. Rodrigo Merida DO, with the diagnosis of R CLOSED PROXIMAL HUMERUS FX for a total of 8 visit(s). Discharge Date: Please see the following information for a summary of their discharge status. Subjective Subjective: PATIENT REPORTS WAS REFERRED TO PAIN MGMT BY THE NEURO SURGEON AT [facility] ABOUT 2-3 WKS AGO DUE TO A PINCHED NERVE IN NECK FROM DISC BULGES. HE STATES HE DOES NOT HAVE THE APPOINTMENT WITH PAIN MGMT SET UP YET BUT OTILIA AT THE [facility] IS WORKING ON SETTING IT UP. HE ALSO REPORTS HE HAS A FOLLOW UP LIBBY'T WITH DR. MERIDA PENDING TOMORROW FOR HIS SHLD. PATIENT REPORTS FEELING A STRETCHING PAIN IN HIS UPPER ARM NOT SHOULDER WITH THERAPY BUT NO INCREASED PAIN OVER ALL WITH THERAPY. Pain R shoulder: Pain Intensity (Out of 10): 2 Objective Objective/Function: PATIENT WAS SEEN TODAY FOR RE-ASSESSMENT OF PROGRESS TOWARD THE SET PT GOALS AND THE NEED FOR FURTHER PHYSICAL THERAPY VS READINESS FOR DISCHARGE. THIS PATIENTS R SHLD IS NOT IMPROVING WITH THERAPY. THERE ARE NO SIGNIFICANT CHANGES IN HIS R SHOULDER COMPARED TO INITIAL EVAL. HE ALSO IS APPARENTLY DEALING WITH NEW ONSET L UE SX'S. HE CONTINUES TO NOT BE ABLE TO ACTIVELY ELEVATE THE R SHLD. AROM OF R ELBOW = MINUS 24 DEG EXTENSION TO 100 DEG FLEXION. P/Flexion:143 deg P/ER at 45: 45 deg P/IR at 45: 73 deg P/Scaption: 140 deg WE ARE GOING TO DISCHARGE HIM DUE TO LACK OF PROGRESS. HE MAY BE A CANDIDATE FOR maintenance therapy AT THE [facility] TO HELP MAIN TAIN R SHLD PROM. Goals Goal 1:: DECREASE C/O R NECK AND UE SX'S. Goal Progress: Not Progressing Goal 2:: INCREASE R UE FUNCTIONAL ROM TO EASE ADL'S. Goal Progress: Not Progressing Goal 3:: IMPROVE R UE FUNCTIONAL STRENGTH TO EASE ADL'S. Goal Progress: Not Progressing Goal 4:: PATIENT AND/OR CAREGIVER WILL BE INDEP WITH [facility] FOR CONTINUED IMPROVEMENT ONCE FORMAL PHYSICAL THERAPY CONCLUDES. Goal Progress: Not Progressing Plan Plan: D/C DUE TO LACK OF PROGRESS. FOLLOW UP WITH DR. MERIDA PENDING TOMORROW. D/C Information d/c sentence: If there are questions or concerns regarding this patient's physical therapy, please feel free to call me at [phone]. Thank you for the referral of this patient. Sincerely, Deneen Lopez, PT, Cert MDT Balance/Gait/Functional tests Balance/Special Test Scores Quick DASH Score: [phone]
== END 2023-01-18 19:00 | disposition home or self-care (01) ==
LOC: PT 12:00
PROVIDERS: PCP Registered Nurse; Referring Provider Orthopaedic Surgery; Visit Provider Orthopaedic Surgery
DX: S42.201D Unspecified fracture of upper end of right humerus, subsequent encounter for fracture with routine healing (principal)
CPT/HCPCS: 97110; 97140; 97162; 97164; 97530